=== PATIENT | female | born 1940 | race Caucasian/White ===

== ENCOUNTER → 2022-01-19 12:48 | Outpatient (BNVA) | payer MEDICARE, OTHER, SELFPAY | PROVIDERS: PCP Internal Medicine; Referring Provider Internal Medicine; Visit Provider Nurse Practitioner Family | DX: G20 Parkinson's disease (principal); G47.52 REM sleep behavior disorder; Z79.899 Other long term (current) drug therapy | CPT/HCPCS: 99212 ==

== ENCOUNTER → 2022-04-20 12:53 | Outpatient (BNVA) | payer MEDICARE, OTHER, SELFPAY | PROVIDERS: PCP Internal Medicine; Visit Provider Nurse Practitioner Family | DX: G20 Parkinson's disease (principal); G47.52 REM sleep behavior disorder | CPT/HCPCS: 99212 ==

== ENCOUNTER → 2022-08-03 11:20 | Outpatient (BNVA) | payer MEDICARE, OTHER, SELFPAY | PROVIDERS: PCP Internal Medicine; Visit Provider Nurse Practitioner Family | DX: G20 Parkinson's disease (principal); G47.52 REM sleep behavior disorder | CPT/HCPCS: 99212 ==

== ENCOUNTER 2022-08-16 16:02 | Emergency (ER) | payer MEDICARE, OTHER, SELFPAY ==
--- NOTE | ~2022-08-16 | XR_ITS ---
EXAMINATION: XR hand wrist LT CLINICAL INFORMATION: Reason for Exam fall COMPARISON: None. TECHNIQUE: 3 views of the left hand and wrist FINDINGS: Generalized osteopenia. Mildly medially and dorsally displaced extra articular fracture of the proximal to mid fifth metacarpal shaft. Well-corticated bone fragment adjacent to the ulnar styloid compatible with prior avulsion fracture. No other fracture or dislocation. Osteoarthritic changes at the triscaphe and first CMC joint with joint space narrowing, subchondral sclerosis and osteophyte formation. Mild degenerative changes at the IP joints and first MCP joint. XR/XR hand wrist LT IMPRESSION: 1. Mildly displaced extra-articular fracture of the distal fifth metacarpal. 2. No other acute fracture or dislocation.
[2022-08-16 17:15] VITALS: BP 128/96; PULSE 86; RESP 18; TEMP 36.7; O2SAT 99; BMI 20.5
--- NOTE | 2022-08-16 17:57 | ED_ITS ---
HPI - Extremity Problem General Chief complaint: Extremity Injury, Upper Stated complaint: fall/hand INJ Time Seen by Provider: 08/16/22 17:44 History of Present Illness HPI Narrative: Patient is an 82-year-old female presents today after an accidental fall. Patient baseline is on carbidopa levodopa for Parkinson. No history of being on thinners. Did not hit her head. The fall was completely mechanical. Patient is right handed. Fell on her left hand. Complaining of pain mostly over the hand. Related Data Home Medications Medication Instructions Recorded Confirmed cholecalciferol (vitamin D3) 50 50 mcg PO DAILY 01/19/22 08/03/22 mcg (2,000 unit) capsule fluticasone propionate 50 spray intranasal 01/19/22 08/03/22 mcg/actuation nasal spray,suspension levothyroxine 75 mcg tablet 75 mcg PO DAILY 01/19/22 08/03/22 zoledronic acid 5 mg/100 mL in IV .annual 01/19/22 08/03/22 mannitol 5 %-water intravenous piggybck Previous Rx's Medication Instructions Recorded carbidopa 25 mg-levodopa 100 mg See Rx Instructions PO TID 30 days 04/20/22 tablet #150 tabs selegiline HCl 5 mg tablet 5 mg PO BID 30 days #60 tabs 07/21/22 carbidopa ER 23.75 mg-levodopa 95 3 cap PO TID 30 days #270 caps 08/03/22 mg capsule,extended release (Rytary) oxycodone 5 mg tablet 5 mg PO Q8H PRN pain #7 tabs 08/16/22 Allergies Allergy/AdvReac Type Severity Reaction Status Date / Time No Known Allergies Allergy Verified 08/16/22 17:15 [No Known Allergies*] Review of Systems Review of Systems: No head injury. No nausea no vomiting no focal weakness Positive swelling to the hand Yes all other systems are reviewed and are negative PMFSH Past Medical History Attestation statement: The following information was validated with the patient. Medical History Hypothyroidism Surgical History History of total hip replacement Social History Social History Alcohol intake: current Alcohol intake frequency: 0-2 drinks per day Alcohol type: hard liquor Patient Tobacco Use Status: Current everyday Tobacco user Advance Directives: Yes Advance Directives Information Provided: No Advance Directives on File: No Physical Exam Vital Signs: Vital Signs: Last Vital Signs Temp 98.0 F 08/16/22 17:15 Pulse 86 08/16/22 17:15 Resp 18 08/16/22 17:15 BP 128/96 H 08/16/22 17:15 Pulse Ox 99 08/16/22 17:15 O2 Del Method 08/16/22 17:15 BMI result Body Mass Index 20.5 Appearance: Alert. Oriented X3. No acute distress. Eyes: Pupils equal, round and reactive to light. ENT: Pharynx normal. Neck: Normal inspection. Neck supple. No lymph nodes noted. No crepitus CVS: Normal heart rate and rhythm. Pulses normal. Normal S1 and S2 Respiratory: No respiratory distress. Breath sounds normal. No Wheezing. No rales Abdomen: Soft and nontender. No rigidity. No distention. good BS x4 Skin: Skin warm and dry. Normal skin color. Normal skin turgor. Extremities: Positive swelling to the left hand. Positive swelling to the left MCP joint of the long, ring, pinky. Minimal movement over the long, pinky finger secondary to pain. Distal pulses intact. Sensation intact. There is a ring over the ring finger. There is minimal tenderness on palpation of the 5th metacarpal bone. There is no anatomical snuffbox tenderness. There is good range of motion at the wrist. Skin intact capillary refill less than 2 seconds. Neuro: Oriented X 3. No motor deficit. No sensory deficit. Moving all e xtermities. No slurred speech MDM - Extremity (Nontraumatic) MDM Narrative Medical decision making narrative: X-ray of the left hand showed a boxer's fracture. The ring will be removed. Neurovascularly intact. Skin intact. There is no anatomical snuffbox tenderness. Placed in an ulnar gutter. Patient to follow-up with orthopedics on an outpatient basis. Discharge Plan Discharge Clinical Impression: Boxer's fracture Patient Disposition: Home, Self-Care Instructions: Splint Care (ED), Boxer Fracture (ED) Prescriptions: New oxycodone 5 mg tablet 5 mg PO Q8H PRN (Reason: pain) Qty: 7 0RF Rx Instructions: Partial Fill upon patient request. No Action selegiline HCl 5 mg tablet 5 mg PO BID 30 Days Qty: 60 3RF cholecalciferol (vitamin D3) 50 mcg (2,000 unit) capsule 50 mcg PO DAILY levothyroxine 75 mcg tablet 75 mcg PO DAILY zoledronic dhdf-wgmutdik-rysmb 5 mg/100 mL piggyback IV .annual fluticasone propionate 50 mcg/actuation spray,suspension intranasal carbidopa-levodopa 25-100 mg tablet See Rx Instructions PO TID 30 Days Qty: 150 6RF Rx Instructions: 2 tabs in am, 1.5 tab in afternoon, and 1.5 tabs in evening PO 3 times a day; Rytary 23.75-95 mg capsule, extended release 3 cap PO TID 30 Days Qty: 270 3RF Rx Instructions: divide evenly over waking hours Referrals: Ben Giraldo MD [Physician] -
== END 2022-08-16 19:57 | disposition home or self-care (01) ==
PROVIDERS: Emergency Provider Emergency Medicine Emergency Medical Services; PCP Internal Medicine
DX: S62.327A Displaced fracture of shaft of fifth metacarpal bone, left hand, initial encounter for closed fracture (principal); W01.0XXA Fall on same level from slipping, tripping and stumbling without subsequent striking against object, initial encounter; G20 Parkinson's disease; F17.200 Nicotine dependence, unspecified, uncomplicated; Z79.899 Other long term (current) drug therapy; Y93.9 Activity, unspecified; Y92.019 Unspecified place in single-family (private) house as the place of occurrence of the external cause; Y99.9 Unspecified external cause status
CPT/HCPCS: 29125; 73110; 73130; 99282; 99283

== ENCOUNTER 2022-08-19 10:54 | Emergency (ER) | payer MEDICARE, OTHER, SELFPAY ==
--- NOTE | ~2022-08-19 | XR_ITS ---
EXAMINATION: XR LUMBAR SPINE XR RIGHT HIP WITH PELVIS CLINICAL INFORMATION: History of fall with pain. COMPARISON: Radiographs of the pelvis from 04/02/2019 CXR from 01/01/2019 TECHNIQUE: Lumbar spine, 3 views Pelvis, AP view Right hip, 2 views FINDINGS: LUMBAR SPINE: There are 5 nonrib-bearing lumbar vertebra. There is dextroscoliosis of the lower thoracic and lumbar spine. Multiple lumbar vertebra exhibit mild concavity of their endplates, as may be observed in patients with chronic osteoporosis. There are no comparison imaging exams of the lumbar spine. The mild compression deformity of the L1 vertebral body appears to be new compared to the chest radiograph from 10/31/2019. There is degenerative disc space narrowing throughout the lumbar spine, and vacuum disc phenomenon is noted at L5-S1. At L4-L5, the facet osteoarthritis and mild disc degenerative change are associated with 0.3 cm of anterolisthesis of L4 on L5. 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 There is atherosclerotic calcification of the aorta and iliac arteries. PELVIS AND RIGHT HIP: The patient is rotated into a left anterior oblique position. The pelvic bones have an intact appearance. There is no diastases at the pubic symphysis or sacroiliac joints. The joint space of each hip is maintained. The proximal femurs are intact. The right femoral head is well-positioned within the acetabulum. Incidentally noted is a focus of soft tissue calcification projecting lateral to the proximal femoral diaphysis. There is an old healed fracture of the intertrochanteric left femur, status post placement of intramedullary nail and dynamic neck screw. No evidence of hardware loosening. XR/XR lumbar spine 2-3V IMPRESSION: * No femoral or acetabular fracture at the right hip. Alignment is normal. * There is mild concavity of vertebral endplates in the lumbar spine, as may be observed in patients with chronic osteoporosis. There are no comparison imaging exams of lumbar spine. The chronicity of the mild compression deformity of the L1 vertebral body is uncertain, but it does appear to be new compared to 01/01/2019. 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
--- NOTE | ~2022-08-19 | XR_ITS ---
EXAMINATION: XR HAND, LEFT CLINICAL INFORMATION: Known boxer's fracture. Fall. COMPARISON: 08/16/2022 TECHNIQUE: 3 views of the left hand. FINDINGS: Osteopenia. Redemonstration of the fifth metacarpal fracture. Similar alignment with dorsal displacement of the distal fragment. No evidence of healing since prior. Degenerative change of the first carpometacarpal joint with osteophyte formation. Joint space narrowing with flexed appearance at the third and fourth metacarpophalangeal joints, unchanged. XR/XR hand wrist LT IMPRESSION: No new fracture. Unchanged alignment of the fifth metacarpal shaft fracture.
--- NOTE | ~2022-08-19 | CT_ITS ---
CT HEAD WITHOUT IV CONTRAST CT CERVICAL SPINE WITHOUT IV CONTRAST INDICATION: Fall. Hit head. COMPARISON: Head CT 01/01/2019. TECHNIQUE: Multidetector CT acquisitions of the head and cervical spine were obtained without IV contrast. Multiplanar reformats were acquired and utilized for image interpretation. This CT examination was performed using dose optimization techniques as appropriate, variously including the following: *Automated exposure control *Adjustment of mA and/or kV according to patient size (this includes techniques or standardized protocols for targeted exams where dose is matched to indication/reason for exam; i.e. 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 There is no intracranial hemorrhage, hydrocephalus, extra-axial surface collection, midline shift, or other herniation pattern. Cho to white matter differentiation is diffusely maintained without evidence of an evolved acute territorial infarct. The basilar cisterns are preserved. No significant soft tissue abnormality. No acute osseous abnormality. The paranasal sinuses and the mastoid air cells are well aerated. Advanced degenerative changes involving the TMJs bilaterally. CERVICAL SPINE: No acute fractures and no acute subluxations. Cervical alignment is maintained. Vertebral body heights are preserved. There is severe disc volume loss at C3-C4 and moderate disc volume loss at C4-C5, C5-C6, and C6-C7. There are multilevel endplate osteophytes. Hypertrophic degenerative changes at the atlantodental interval. There is no prevertebral soft tissue swelling. Atherosclerotic calcification involving the carotid bifurcations bilaterally. Biapical pleural parenchymal scarring. CT/CT cervical spine wo IV con IMPRESSION: - No acute intracranial findings. 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 - No acute osseous findings within the cervical spine. Multilevel cervical spondylosis.
[2022-08-19 11:04] VITALS: BP 143/83; BP 145/60; PULSE 84; PULSE 85; RESP 16; TEMP 36.8; O2SAT 98; O2SAT 99; BMI 19.5
--- NOTE | 2022-08-19 11:48 | ED_ITS ---
HPI - Fall General Chief Complaint: Fall <CHE Silverman Last Filed: 08/19/22 20:32> Stated Complaint: Fall <CHE Silverman Last Filed: 08/19/22 20:32> Time Seen by Provider: 08/19/22 11:28 <CHE Silverman Last Filed: 08/19/22 20:32> Source: patient and EMS <CHE Silverman Last Filed: 08/19/22 20:32> Mode of arrival: EMS <CHE Silverman Last Filed: 08/19/22 20:32> History of Present Illness HPI Narrative: 82-year-old female with a past medical history of hypothyroid, Parkinson's, multiple falls, recent boxer's fracture seen in our ED on 08/16 s/p fall, presenting to the ED complaining of recurrent fall at home last night around 17:00. Patient states fell, landing hitting head with small laceration t o back of head, right-sided lower back pain, and continued left hand/wrist pain with splint falling apart. Denies LOC or taking anticoagulation. Denies symptoms prior to fall. Denies neck pain, headache, vision change/ loss, nausea/ vomiting, CP/ SOB, abdominal pain, numbness, tingling, weakness, incontinence or retention. Tetanus up-to-date <CHE Silverman - Last Filed: 08/19/22 20:32> MD complaint: fall <CHE Silverman Last Filed: 08/19/22 20:32> Onset (ago): hour(s) <CHE Silverman Last Filed: 08/19/22 20:32> Related Data Home Medications: Home Medications Medication Instructions Recorded Confirmed cholecalciferol (vitamin D3) 50 50 mcg PO DAILY 01/19/22 08/19/22 mcg (2,000 unit) capsule levothyroxine 75 mcg tablet 75 mcg PO DAILY 01/19/22 08/19/22 zoledronic acid 5 mg/100 mL in IV .annual 01/19/22 08/03/22 mannitol 5 %-water intravenous piggybck selegiline HCl 5 mg tablet 5 mg PO BID@0800,1500 08/19/22 08/19/22 Previous Rx's Medication Instructions Recorded carbidopa ER 23.75 mg-levodopa 95 3 cap PO TID 30 days #270 caps 08/03/22 mg capsule,extended release (Rytary) <CHE Silverman - Last Filed: 08/19/22 20:32> Allergies/Adverse Reactions: Allergies Allergy/AdvReac Type Severity Reaction Status Date / Time No Known Allergies Allergy Verified 08/16/22 17:15 [No Known Allergies*] <CHE Silverman Last Filed: 08/19/22 20:32> Review of Systems Review of Systems: Constitutional: No Fever, No Chills, No Fatigue, No Malaise ENT/Mouth: No Ear Pain, No Nasal Congestion, No sore throat, No Rhinorrhea, No Swallowing Difficulty Eyes: No Eye Pain, No Swelling, No Redness, No Discharge, No Vision Changes Cardiovascular: No Chest Pain, No SOB, No Edema, No Palpitations Respiratory: No Cough, No Sputum, No Dyspnea Gastrointestinal: No Nausea, No Vomiting, No Diarrhea, No Constipation, No Abdominal pain Genitourinary: No Dysuria, No Urinary Frequency, No Hematuria, No Urinary Incontinence/retention, No Flank Pain Musculoskeletal: + joint pain, No Myalgias, + Joint Swelling Skin: + Skin Lesions, No rash Neuro: No Weakness, No Numbness, No Paresthesias, No Loss of Consciousness, No Dizziness, + Head Injury <CHE Silverman Last Filed: 08/19/22 20:32> Yes all other systems are reviewed and are negative <CHE Silverman Last Filed: 08/19/22 20:32> Constitutional: Constitutional: Reports as per HPI <CHE Silverman Last Filed: 08/19/22 20:32> Neurologic: Denies Abnormal speech present <CHE Silverman Last Filed: 08/19/22 20:32> [facility] Past Medical History Attestation statement: The following information was validated with the patient. <CHE Silverman Last Filed: 08/19/22 20:32> Medical History: Medical History Hypothyroidism <CHE Silverman Last Filed: 08/19/22 20:32> Surgical History: Surgical History History of total hip replacement <CHE Silverman - Last Filed: 08/19/22 20:32> Social History Social History: Social History Alcohol intake: current Alcohol intake frequency: 0-2 drinks per day Alcohol type: hard liquor Patient Tobacco Use Status: Current everyday Tobacco user Advance Directives: Yes Advance Directives Information Provided: Yes Advance Directives on File: No <CHE Silverman - Last Filed: 08/19/22 20:32> Physical Exam Vital Signs: Vital Signs: Last Vital Signs Temp 98.6 F 08/20/22 07:31 Pulse 77 08/20/22 07:31 Resp 16 08/20/22 07:31 BP 148/68 H 08/20/22 07:31 Pulse Ox 97 08/20/22 07:31 O2 Del Method 08/20/22 07:31 BMI result Body Mass Index 19.5 <CHE Silverman - Last Filed: 08/19/22 20:32> Vital Signs: Last Vital Signs Temp 98.6 F 08/20/22 07:31 Pulse 77 08/20/22 07:31 Resp 16 08/20/22 07:31 BP 148/68 H 08/20/22 07:31 Pulse Ox 97 08/20/22 07:31 O2 Del Method 08/20/22 07:31 BMI result Body Mass Index 19.5 <CHE Schmidt - Last Filed: 08/20/22 10:06> Const: General: cooperative, healthy appearing, no acute distress, alert and awake <CHE Silverman - Last Filed: 08/19/22 20:32> Orientation/consciousness: patient oriented x3 <CHE Silverman - Last Filed: 08/19/22 20:32> Limitations: no limitations <CHE Silverman Last Filed: 08/19/22 20:32> HEENT: Other: + superficial 1cm laceration noted to posterior scalp, bleeding controlled <CHE Silverman Last Filed: 08/19/22 20:32> Head: Yes normal to inspection and No hematoma <CHE Silverman Last Filed: 08/19/22 20:32> Ears: hearing grossly normal bilaterally <CHE Silverman Last Filed: 08/19/22 20:32> General nose exam: Normal external nose present <CHE Silverman Last Filed: 08/19/22 20:32> Face and sinus: Yes normal facial exam <CHE Silverman Last Filed: 08/19/22 20:32> Mouth: Normal oral and palatal mucosa present <CHE Silverman Last Filed: 08/19/22 20:32> Throat: Yes posterior oropharynx normal, Yes tonsils normal and Yes uvula midline <CHE Silverman Last Filed: 08/19/22 20:32> Eyes: General: appearance normal, both eyes and all related structures <CHE Silverman Last Filed: 08/19/22 20:32> Pupils: Equal, round and reactive pupils present <CHE Silverman Last Filed: 08/19/22 20:32> EOM: EOMs intact bilaterally <CHE Silverman Last Filed: 08/19/22 20:32> Neck: Other: no midline cervical spinous tenderness <CHE Silverman Last Filed: 08/19 20:32> Neck: Yes normal visual inspection and Yes no meningeal signs <CHE Silverman Last Filed: 08/19/22 20:32> Chest: Chest palpation & inspection: normal inspection of the chest <CHE Silverman Last Filed: 08/19/22 20:32> Resp: Effort & Inspection: normal respiratory effort and no respiratory distress <CHE Silverman Last Filed: 08/19/22 20:32> Auscultation: clear to auscultation bilaterally <CHE Silverman Last Filed: 08/19/22 20:32> Cardio: Rate: regular rate <CHE Silverman Last Filed: 08/19/22 20:32> Heart sounds: S1 normal heart sound present and S2 normal heart sound present <Ileana Martin PA - Last Filed: 08/19/22 20:32> Peripheral pulses: Peripheral pulses 2+ throughout <Ileana Martin PA - Last Filed: 08/19/22 20:32> GI: Inspection: Yes normal to inspection <Ileana Martin PA - Last Filed: 08/19/22 20:32> Palpation (GI): Soft to palpation, nontender, no guarding and not rigid <Ileana Martin PA - Last Filed: 08/19/22 20:32> : General: Yes no CVA tenderness <Ileana Martin PA - Last Filed: 08/19/22 20:32> Back/Spine/Pelvis: Other: No midline thoracic/lumbar spinous tenderness/step-off or deformity. +R sided lower lumbar MSK tenderness to palpation <Ileana Martin PA - Last Filed: 08/19/22 20:32> Back: no CVA tenderness <Ileana Martin PA - Last Filed: 08/19/22 20:32> Thoracic/Lumbar Spine: thoracic and lumbar spine normal to inspection <Ileana Martin PA - Last Filed: 08/19/22 20:32> Pelvis: no pain with anterior-posterior compression, no pain with lateral compression and no buttock tenderness <Ileana Martin PA - Last Filed: 08/19/22 20:32> Skin: Rashes: no rashes <Ileana Martin PA - Last Filed: 08/19/22 20:32> Neuro: Other: Strength intact throughout. No saddle anesthesia. Sensation intact to light touch. Neurovascular intact distally <Ileana Martin PA - Last Filed: 08/19/22 20:32> General: patient oriented x3, gait normal, tone normal, moves all extremities, no meningeal signs, no focal motor deficits and CN's II-XI intact bilaterally <Ileana Martin PA - Last Filed: 08/19/22 20:32> Cranial nerves: Yes CN's II-XII intact bilaterally, Yes Equal, round and reactive pupils present and Yes Bilaterally intact EOM present <Ileana Martin PA - Last Filed: 08/19/22 20:32> Cognition (Neuro): normal cognition <CHE Silverman - Last Filed: 08/19/22 20:32> Speech: No Abnormal speech present <CHE Silverman Last Filed: 08/19/22 20:32> Gait exam (Neuro): Normal gait present <CHE Silverman Last Filed: 08/19/22 20:32> Motor exam (neuro): Tremors during motor activity present <CHE Silverman Last Filed: 08/19/22 20:32> Extrem: Other: +LUE with splint intact, falling apart, removed. +L hand swelling and ecchy mosis, diffusely ttp. decreased ROM 2/2 pain. NV intact hips nontender. Range of motion intact passively <CHE Silverman Last Filed: 08/19/22 20:32> Course Course Course Narrative: CT head/brain wo IV con/CT cervical spine wo IV con IMPRESSION: - No acute intracranial findings. 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 - No acute osseous findings within the cervical spine. Multilevel cervical spondylosis. XR lumbar spine 2-3V/XR hip RT w PEL1V IMPRESSION: *? No femoral or acetabular fracture at the right hip. Alignment is normal. *? There is mild concavity of vertebral endplates in the lumbar spine, as may be observed in patients with chronic osteoporosis. There are no comparison imaging exams of lumbar spine. The chronicity of the mild compression deformity of the L1 vertebral body is uncertain, but it does appear to be new compared to 01/01/2019. *? 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 > no point tenderness XR hand wrist LT IMPRESSION: No new fracture. Unchanged alignment of the fifth metacarpal shaft fracture.? >> will replace ulnar gutter splint -1442-- physician observation initiated as patient needs more time to be evaluated by Physical therapy/case management -1527-- patient was evaluated by Physical therapy recommended short-term rehab 2100--ED care transferred to [facility] pending PT/CM <CHE Silverman Last Filed: 08/19/22 20:32> CT head/brain wo IV con/CT cervical spine wo IV con IMPRESSION: - No acute intracranial findings. 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 - No acute osseous findings within the cervical spine. Multilevel cervical spondylosis. XR lumbar spine 2-3V/XR hip RT w PEL1V IMPRESSION: *? No femoral or acetabular fracture at the right hip. Alignment is normal. *? There is mild concavity of vertebral endplates in the lumbar spine, as may be observed in patients with chronic osteoporosis. There are no comparison imaging exams of lumbar spine. The chronicity of the mild compression deformity of the L1 vertebral body is uncertain, but it does appear to be new compared to 01/01/2019. *? 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 > no point tenderness XR hand wrist LT IMPRESSION: No new fracture. Unchanged alignment of the fifth metacarpal shaft fracture.? >> will replace ulnar gutter splint -1442-- physician observation initiated as patient needs more time to be evaluated by Physical therapy/case management -1527-- patient was evaluated by Physical therapy recommended short-term rehab 2100--ED care transferred to [facility] pending PT/CM 1005 on 08/20/2022: Physician observation continues. Patient to be discharged to [facility]. <CHE Schmidt - Last Filed: 08/20/22 10:06> Procedures Orthopedic Splinting/Casting Injury #1: Side: left <CHE Silverman - Last Filed: 08/19/22 20:32> Upper Extremity Immobilizer: ulnar gutter <CHE Silverman - Last Filed: 08/19/22 20:32> MDM - Fall MDM Narrative Medical decision making narrative: 82-year-old female with a past medical history of hypothyroid, Parkinson's, multiple falls, recent boxer's fracture seen in our ED on 08/16 s/p fall, presenting to the ED complaining of recurrent fall at home last night around 17:00. on exam vital signs stable, NAD, nontoxic appearing, no midline spinous tenderness throughout, small laceration noted to posterior scalp recommended one staple however patient refused. + Right lower back MSK tenderness noted. No focal neuro deficits. LUE splint removed. Concern for ICH vs concussion vs fracture vs MSK pain /strain. Low suspicion for cauda equina/cord compression. Lower suspicion for pelvic/hip fracture. Low concern for retroperitoneal bleed plan: Head/ C-spine CT, lumbar x-ray, hip/pelvis x-ray, repeat x-rays of left hand/ wrist, re-splint, PT/case management <CHE Silverman - Last Filed: 08/19/22 20:32> Medical Records Attestation: I reviewed the patient's medical records. <CHE Silverman Last Filed: 08/19/22 20:32> Lab Data Attestation: I reviewed the patient's lab results. <CHE Silverman Last Filed: 08/19/22 20:32> Labs: Lab Results 08/19/22 Range/Units 14:04 Influenza Type A (PCR) NEGATIVE (Negative) Influenza Type B (PCR) NEGATIVE (Negative) RSV RNA Qual (PCR) NEGATIVE (Negative) SARS-CoV-2 RNA (RT-PCR) NEGATIVE (Negative) <CHE Silverman Last Filed: 08/19/22 20:32> Lab Results 08/19/22 Range/Units 14:04 Influenza Type A (PCR) NEGATIVE (Negative) Influenza Type B (PCR) NEGATIVE (Negative) RSV RNA Qual (PCR) NEGATIVE (Negative) SARS-CoV-2 RNA (RT-PCR) NEGATIVE (Negative) <CHE Schmidt - Last Filed: 08/20/22 10:06> Discharge Plan Discharge Clinical Impression: Frequent falls, Compression deformity of vertebra, Boxer's fracture <CHE Silverman Last Filed: 08/19/22 20:32> Patient Disposition: Still a Patient <CHE Silverman Last Filed: 08/19/22 20:32> Prescriptions: No Action selegiline HCl 5 mg tablet 5 mg PO BID@0800,1500 cholecalciferol (vitamin D3) 50 mcg (2,000 unit) capsule 50 mcg PO DAILY levothyroxine 75 mcg tablet 75 mcg PO DAILY zoledronic ckdy-hkueondk-oylun 5 mg/100 mL piggyback IV .annual Rytary 23.75-95 mg capsule, extended release 3 cap PO TID 30 Days Qty: 270 3RF Rx Instructions: divide evenly over waking hours <CHE Silverman Last Filed: 08/19/22 20:32>
[2022-08-19] MEDS: Lidocaine 4 % Patch ADH..PATCH 1 PATCH TRANSDERMA (12:22)
[2022-08-19 14:00] VITALS: BP 149/77; PULSE 77; RESP 18; TEMP 36.6; O2SAT 99
[2022-08-19 14:50] LABS: Influenza A PCR NEGATIVE (Negative); Influenza B PCR NEGATIVE (Negative); Resp Syncy Virus RNA Qual PCR NEGATIVE (Negative); SARS COV2 PCR INHOUSE NEGATIVE (Negative)
--- NOTE | 2022-08-19 15:38 | MHC.CM.ED ---
Received case management consult from Ileana BOLTON. Patient fell at home. Physical therapy eval completed. Short term rehab is being recommended. Met with patient and , Jacobo in regards to discharge planning. Patient lives with Jacobo, ambulates with a walker and had no services prior to coming to the ER. PCP verified. Patient received 3 Moderna vaccines and 1 Pfizer vaccine. List of [facility] facilities provided to patient and [facility]. Facility choices: 1) [facility] 2) [facility]. Referrals made via [facility]. Continue to monitor for d/c needs.
--- NOTE | 2022-08-19 16:18 | MHC.CM.ED ---
Neither [facility] or [facility] able to offer a bed tonight. Both may be able to offer a bed tomorrow, 08/20. [facility] currently has a Covid outbreak. Family is not interested in bed at [facility] at this time. Waiting to hear about [facility] on 08/20. Referral also made to [facility] at patient and 's request. Patient and aware patient will be in the ER overnight. Continue to monitor for d/c needs.
[2022-08-19 20:09] VITALS: BP 142/70; PULSE 72; RESP 16; TEMP 36.3; O2SAT 98
--- NOTE | 2022-08-19 20:16 | PC.NURSE ---
ASSUMED CARE OF PATIENT AT THIS TIME ,PATIENT CHANGE INTO HOSPITAL ATTIRE BY THIS PCT ,PATIENT WAS INCONTINENT OF URINE JANETH CARE GIVEN ,PATIENT ATE 75 % OF DINNER DRANK 480 ML FLUIDS ,PATIENT IS RESTING COMFORTABLE IN BED .
--- NOTE | 2022-08-19 21:08 | PC.NURSE ---
Care delayed due to this RN being in another room with a critical pt.
[2022-08-19 21:59] VITALS: BP 134/84; PULSE 74; RESP 16; TEMP 36.6; O2SAT 97
--- NOTE | 2022-08-19 22:02 | PHA.MEDREC ---
MED REC COMPLETE, NO ISSUES Pharmacy Consult ? Medication Reconciliation Pharmacy has completed the medication reconciliation.
--- NOTE | 2022-08-19 22:25 | PC.NURSE ---
PATIENT WAS INC OF URINE ,JANETH CARE GIVEN ,BEDDING CHANGE .
--- NOTE | 2022-08-19 23:16 | PC.NURSE ---
Addendum entered by Lex Draper 08/19/22 23:25: [employer] IS AWARE OF TELE SITTER IN PATIENT ROOM BECAUSE PATIENT IS CLIMBING OUT OF BED . Original Note: tele sitter in place ,due to patient climbing out of bed .
--- NOTE | 2022-08-20 01:07 | PC.NURSE ---
Pt. asking this RN why she is at hospital and isn't home at this time. This RN to explain to pt. that she is awaiting CM/PT evaluations
--- NOTE | 2022-08-20 01:18 | PC.NURSE ---
Pt. expressing to this RN that she feels captive in this room and would like to go home. Requesting to speak with MD at this time.
[2022-08-20 01:42] VITALS: BP 151/86; PULSE 87; RESP 16; TEMP 37; O2SAT 98
--- NOTE | 2022-08-20 01:43 | PC.NURSE ---
PATIENT WAS UNDRESS AND CHANGE INTO HOSPITAL ATTIRE EARLIER TODAY ,BUT PATIENT TOOK HER JACKET AND PUT IT ON REFUSED TO HAVE IT REMOVE ,PATIENT WAS INC AT THIS TIME ALSO VOID IN THE BEDPAN ,JANETH CARE GIVEN ,GONZALO KELLER AWARE OF PATIENT WANTED TO KEEP HER JACKET ON .
--- NOTE | 2022-08-20 01:44 | PC.NURSE ---
This RN spoke with CHE Arnett. PA is under impression that pt.'s would like her to stay for PT marcos. CHE tells this RN that it is OK for pt. to go home so long as it is OK with . This RN called pt.'s Jacobo and had a conversation with him re: pt.'s desire to go home. Pt.'s would like pt. to stay until tomorrow morning and if pt. doesn't get evaluated by PT by the morning, he plans to take pt. home.
--- NOTE | 2022-08-20 02:45 | PC.NURSE ---
PATIENT IS ASLEEP AT THIS TIME .
[2022-08-20 06:29] VITALS: BP 142/76; PULSE 78; RESP 16; TEMP 36.6; O2SAT 94
[2022-08-20 07:31] VITALS: BP 148/68; PULSE 77; RESP 16; TEMP 37; O2SAT 97
--- NOTE | 2022-08-20 10:12 | MHC.CM.ED ---
[facility] not able to offer [facility] bed today. [facility] is. Patient and , Jacobo accept bed at [facility]. Patient can leave at 1pm. Lucretia MCKEON booked for 1pm. [facility] with chart. Patient, Kenia Centeno RN and Jenn BOLTON aware. Continue to monitor for d/c needs.
[2022-08-20 11:44] VITALS: BP 142/74; PULSE 81; RESP 16; O2SAT 99
[2022-08-20 13:49] VITALS: BP 138/74; PULSE 78; RESP 16; TEMP 36.7; O2SAT 99
--- NOTE | 2022-08-20 14:23 | PC.NURSE ---
rn to rn report given to roosevelt at [facility] ([phone])
== END 2022-08-20 14:25 | disposition home or self-care (01) ==
PROVIDERS: Physician Assistant; Emergency Provider Emergency Medicine; PCP Internal Medicine
DX: S62.327A Displaced fracture of shaft of fifth metacarpal bone, left hand, initial encounter for closed fracture (principal); S01.01XA Laceration without foreign body of scalp, initial encounter; W19.XXXA Unspecified fall, initial encounter; M51.06 Intervertebral disc disorders with myelopathy, lumbar region; R29.6 Repeated falls; Z91.81 History of falling; F17.200 Nicotine dependence, unspecified, uncomplicated; Z20.822 Contact with and (suspected) exposure to COVID-19; Y93.9 Activity, unspecified; Y92.019 Unspecified place in single-family (private) house as the place of occurrence of the external cause; Y99.9 Unspecified external cause status
CPT/HCPCS: 0241U; 29125; 70450; 72100; 72125; 73110; 73130; 73502; 97162; 99284; 99285

== ENCOUNTER 2022-08-25 09:18 | Outpatient (REF) | payer OTHER, MEDICARE, SELFPAY ==
--- NOTE | ~2022-08-25 | XR_ITS ---
EXAMINATION: XR HAND, LEFT CLINICAL INFORMATION: Fracture fifth metacarpal COMPARISON: Left hand 08/25/2022 and 08/19/2022. TECHNIQUE: Lateral view of the left hand. FINDINGS: Again visualized is a comminuted fracture proximal fifth metacarpal with mild dorsal displacement of distal fragment. There is an old ulnar styloid process fracture, stable. XR/XR hand LT 2V IMPRESSION: Comminuted displaced proximal fifth metacarpal fracture.
--- NOTE | ~2022-08-25 | XR_ITS ---
EXAMINATION: XR HAND, LEFT CLINICAL INFORMATION: Fracture COMPARISON: Previous x-ray 08/19/2022 TECHNIQUE: PA, lateral, and oblique views of the left hand. FINDINGS: There is a comminuted displaced fracture of the proximal shaft of the fifth metacarpal bone. Displacement appears increased compared to August 19 exam. There is evidence of an old ulnar styloid fracture. No other acute fracture is seen. There is question of widening of the scapholunate distance. This is not appreciated on exams from earlier this month and may be projectional. There is arthritis at the first FPC and MCP joints. Soft tissues are unremarkable. XR/XR hand LT min 3V IMPRESSION: Increasing displacement of the comminuted fracture of the proximal shaft of the fifth metacarpal bone.
== END 2022-08-25 09:19 | disposition home or self-care (01) ==
LOC: HO.HOSX 09:18
PROVIDERS: Visit Provider Physician Assistant
DX: S62.607A Fracture of unspecified phalanx of left little finger, initial encounter for closed fracture (principal); G20 Parkinson's disease; W19.XXXA Unspecified fall, initial encounter; Y93.9 Activity, unspecified; Y92.9 Unspecified place or not applicable; Y99.9 Unspecified external cause status; Z79.899 Other long term (current) drug therapy
CPT/HCPCS: 73120; 73130; 99202

== ENCOUNTER 2022-08-30 08:42 | Day surgery (SDC) | payer OTHER, MEDICARE, SELFPAY ==
--- NOTE | 2022-08-27 10:22 | HO.ANESPROP2 ---
Documented by User: Rhianna Leon NP 08/27/22 10:23 HPI - Anesthesia Eval Consult details Narrative: 82yo F for Left CRPP vs ORIF 5th Metacarpal,Closed vs open reduction Middle and ring finger metacarpal [facility] resident [facility] Active Problems Active Problems: All Active Problems (Updated 08/25/22 @ 10:08 by Art Ruelas) Fracture of fifth metacarpal bone of left hand (Acute) Finger fracture, left (Acute) REM sleep behavior disorder (Acute) Parkinson's disease (Acute) Past Medical History Medical History (Updated 08/27/22 @ 10:23 by Rhianna Leon NP) Hypothyroidism Parkinson's disease Surgical History Surgical History History of total hip replacement Social History Social History (Updated 08/25/22 @ 08:47 by CHICHI Rivera) Alcohol intake: never Patient Tobacco Use Status: Current someday Tobacco user Tobacco use type: Cigarette Cigarettes Per Day: 4 Years Smoked: 35 Smoked in Last 30 Days: Yes Use of substances other than those prescribed or required for medical reasons: No Are you DNR?: No Advance Directives: No Advance Directives Information Provided: Yes Current occupational status: retired and disabled 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 Allergies Allergy/AdvReac Type Severity Reaction Status Date / Time No Known Allergies Allergy Verified 08/25/22 08:47 [No Known Allergies*] Home Medications Medication Instructions Recorded Confirmed Last Taken Type cholecalciferol (vitamin D3) 50 50 mcg PO DAILY 01/19/22 08/30/22 Unknown History mcg (2,000 unit) capsule levothyroxine 75 mcg tablet 75 mcg PO DAILY 01/19/22 08/30/22 08/30/22 06:30 History zoledronic acid 5 mg/100 mL in IV .annual 01/19/22 08/03/22 Unknown History mannitol 5 %-water intravenous piggybck selegiline HCl 5 mg tablet 5 mg PO BID@0800,1500 08/19/22 08/30/22 08/30/22 06:30 History Exam Exam Date and Time: August 27, 2022 1022 Assessment and Plan Assessment Anesthesia Assessment: Chart Reviewed Documented by User: Juventino Pool MD 08/30/22 15:49 [facility] Past Medical History Medical History (Updated 08/27/22 @ 10:23 by Rhianna Leon NP) Hypothyroidism Parkinson's disease Family History Family history of problems with anesthesia: No Surgical History Surgical History History of total hip replacement History of Problems with Anesthesia: No Social History Social History (Updated 08/25/22 @ 08:47 by CHICHI Rivera) Alcohol intake: never Patient Tobacco Use Status: Current someday Tobacco user Tobacco use type: Cigarette Cigarettes Per Day: 4 Years Smoked: 35 Smoked in Last 30 Days: Yes Use of substances other than those prescribed or required for medical reasons: No Are you DNR?: No Advance Directives: No Advance Directives Information Provided: Yes Current occupational status: retired and disabled 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 Allergies Allergy/AdvReac Type Severity Reaction Status Date / Time No Known Allergies Allergy Verified 08/25/22 08:47 [No Known Allergies*] Home Medications Medication Instructions Recorded Confirmed Last Taken Type cholecalciferol (vitamin D3) 50 50 mcg PO DAILY 01/19/22 08/30/22 Unknown History mcg (2,000 unit) capsule levothyroxine 75 mcg tablet 75 mcg PO DAILY 01/19/22 08/30/22 08/30/22 06:30 History zoledronic acid 5 mg/100 mL in IV .annual 01/19/22 08/03/22 Unknown History mannitol 5 %-water intravenous piggybck selegiline HCl 5 mg tablet 5 mg PO BID@0800,1500 08/19/22 08/30/22 08/30/22 06:30 History Exam Airway Mallampati Class: III Neck ROM: Limited Denture: Upper and Lower Loose/Missing/Broken Teeth: Yes Heart: S1,S2 Lungs: b/l breath sounds Assessment and Plan Assessment Anesthesia Assessment: Anesthesia Plan Discussed Final Anesthetic Review Family History of Problems with Anesthesia: No History of Problems with Anesthesia: No NPO: Yes ASA Class: III Final Preanesthetic Review: Meds/Allgs Chart Reviewed, Consent Obtained/Reviewed and Anes Risks/Benef Reviewed Patient Risk: Intermediate Procedure Risk: Intermediate Anesthetic Plan Anesthetic Plan: GA Disposition: Standard PACU
[2022-08-30] VITALS (8 sets, daily range): BP systolic 117–141; BP diastolic 62–71; PULSE 69–80; RESP 14–18; TEMP 36.2; O2SAT 95–98; BMI 20.5
--- NOTE | ~2022-08-30 | FL_ITS ---
EXAMINATION: XR FLUOROSCOPY WITH IMAGES CLINICAL INFORMATION: Fracture proximal shaft left fifth metacarpal COMPARISON: Left hand radiographs 08/25/2022 TECHNIQUE: Fluoroscopy performed by Dr. Farheen Dodge. Fluoroscopy time: 17 seconds. Cumulative Dose: 0.4251 mGy. DAP: 0.0257 Gycm2. Images: 5. FINDINGS: Fracture left fifth metacarpal is reduced with metallic orthopedic pin. There is improved alignment. No dislocation. Hardware intact. FL/FL guidance in OR IMPRESSION: Status post open reduction internal fixation left fifth metacarpal fracture.
--- NOTE | 2022-08-30 09:18 | W.PM.OPN ---
Operative Note Operative Note Date of Service: 08/30/22 Narrative: Operative Note Narrative: Preop diagnosis: 1. Left 5th metacarpal shaft fracture with comminution 2. Left 3rd MCP joint volar subluxation/dislocation, posttraumatic 3. Left 4th MCP joint volar subluxation/ dislocation, posttraumatic Postop diagnosis: Same Procedure: 1. Left 5th metacarpal shaft fracture closed reduction percutaneous pinning 2. Left 3rd MCP joint open reduction and release of volar plate 3. Left 4th MCP joint open reduction and release of volar plate 4. Left 4th MCP joint removal of bony fragment Surgeon: Farheen Dodge MD Anesthesia: General Anesthesia Findings: after releasing the volar plate and performing an arthrotomy of both the 3rd and 4th MCP joints, I was then able to bring these joints into full extension and even hyper extension. A Small bony fragment was also excised and removed from the radial aspect of the 4th MCP joint. There is evidence of cartilage loss from the 3rd metacarpal head that may be degenerative versus posttraumatic. It is in the central and slightly volar aspect of the 3rd metacarpal head. No prominent osteophytes were observed about either the 3rd or 4th metacarpal heads. There was also some laxity indicating damage to the radial collateral ligaments of both the 3rd and the 4th MCP joints. Implants: 0.062 K-wires times One Tourniquet time: 80 minutes EBL: 5.0 ml Specimen: none Drains: None Complications: None Disposition: Brought to the recovery room in stable condition Plan: Follow-up in 10-14 days for wound check, suture removal and pre clinic radiographs and placement in a short-arm cast that will allow for range of motion of the index middle and ring fingers. encourage range of motion of the Index middle and ring finger MCP joints. anticipate K-wire removal in 4-5 weeks, pending evidence of bony healing Luis taping of the index finger to the middle finger may be helpful as the radial collateral ligament heals Indications: The patient is a 82 year old woman with Parkinson's disease and a left comminuted 5th metacarpal shaft fracture, and 3rd and 4th MCP joint volar subluxation/ dislocations status post a fall. . The risks and benefits of operative treatment, including but not limited to risk of damage to blood vessels, nerves, tendons, infection, recurrence, persistent pain or numbness, incomplete resolution of preoperative symptoms, or need for further surgery were discussed with the patient and they wished to proceed with surgery. Procedure: Once consent was obtained patient was brought back to the operating suite and placed in the operating table in a supine position. . Perioperative antibiotics and anesthesia was administered by the anesthesia team. A tourniquet was applied to the proximal aspect of the Left upper extremity and the limb was prepped and draped in a standard surgical fashion. The limb was elevated exsanguinated with Esmarch bandage and the tourniquet inflated to 250 mm of mercury for a total tourniquet time of 80 minutes. Our attention was 1st turned to the 3rd and 4th MCP joints. As noted when she was seen in clinic the joints are ulnarly deviated, and held in some flexion. Both the middle and ring fingers appear on exam today to have injuries or laxity of the radial collateral ligaments at the MCP joint that likely occurred during this injury. We were not able to passively extend the MCP joints of the middle or ring fingers to further than about 10 degrees of flexion. Both the index and ring fingers were able to be brought to a good 10-15 degrees of hyper extension.. A Subhash site incision was 1st made over the volar aspect of the left 3rd MCP joint. Incision was made through the skin to the subcutaneous tissues using a 15. Blade. We carefully dissected down to the level of the A1 cookie using tenotomy scissors with care being taken to protect the neurovascular bundles. The A1 cookie was incised longitudinally using a 15. Blade and tenotomy scissors. We were then retracted the 2 flexor tendons, exposing the volar plate. The volar plate was then incised along its radial edge using a 15. Blade and tenotomy scissors. This then revealed to was the metacarpal phalangeal joint. a loss of articular cartilage on the volar central aspect of the 3rd metacarpal head. It was unclear whether this could be degenerative verses traumatic, though I would say it is most likely traumatic. No loose bodies were identified. No significant osteophytes were identified. Again on exam it appears that she sustained an injury to the radial collateral ligament at the MCP joint with some laxity. The ulnar collateral ligament appears to be intact. At this point I was able to bring the middle finger MCP joint to about 15 degrees of hyper extension and back into flexion. I also made an approximately 2 cm dorsal longitudinal incision over the 3rd MCP joint. I was concerned about the extensor mechanism and whether this may be contributing to the ulnar deviation of the middle finger. The extensor mechanism was found to sublux slightly ulnarly, but remained over the dorsal aspect of the MCP joint. It did not fully slip into the groove between the 3rd and 4th metacarpal heads. I felt this was not likely a contributing factor. ?A Subhash site incision was 1st made over the volar aspect of the left Fourth MCP joint.? Incision was made through the skin to the subcutaneous tissues using a 15. Blade.? We carefully dissected down to the level of the A1 cookie using tenotomy scissors with care being taken to protect the neurovascular bundles.? The A1 cookie was incised longitudinally using a 15. Blade and tenotomy scissors.? We were then able to retract the? 2 flexor tendons, exposing the volar plate. The volar plate was then incised along its radial edge using a 15. Blade and tenotomy scissors. This then revealed to us the metacarpal phalangeal joint. I did not appreciate any loss of articular cartilage on the 4th metacarpal head. I also did not appreciate any significant osteophytes. Similar to the 3rd MCP joint we found laxity of the radial collateral ligament with an intact ulnar collateral ligament at the MCP joint. I also found a small bony fragment attached to a somewhat loose piece of capsule along the radial side of the joint. This was carefully excised and removed from the patient. The joint was then copiously irrigated. I was then able to bring the ring finger MCP joint to about 15 degrees of hyper extension and back into flexion. These wounds were copiously irrigated with normal saline. The tourniquet was deflated at a total tourniquet time of 80 minutes and hemostasis was obtained with a brief period of local pressure. The skin edges were then reapproximated with some 5 0 nylon suture material. The wounds were infiltrated with some 0.5% plain ropivacaine for postop pain control. Our attention was then turned to the left 5th metacarpal shaft fracture. The FluoroScan was used during the case to assist with our fracture reduction and placement of all implants.? A closed reduction was performed on the patient's Left 5th metacarpal shaft fracture.? ?I placed a single 0.062 K-wire retrograde through the head of the 5th metacarpal extending proximally across the fracture site to the base of the? metacarpal.? ? Fracture alignment was assessed for both angular and rotational malalignment.? I did not feel a 2nd K-wire was necessary.? Once satisfied with our fracture reduction and implant placement, the K-wire was bent and cut short and pin cap applied.? Final fluoroscopic images were then obtained. and ulnar nerve block was performed by infiltrating about the ulnar nerve at the wrist with some 0.5% plain ropivacaine for postop pain control. A sterile dressing And an ulnar gutter splint was applied. The patient appears to have tolerated the procedure well and with no complications. All digits were well vascularized conclusion of the case.
[2022-08-30] MEDS: Lactated Ringers 1,000 ML 100 ML IVCONT (10:12)
== END 2022-08-30 15:00 | disposition home or self-care (01) ==
PROVIDERS: PCP Internal Medicine; Visit Provider Orthopaedic Surgery
PROC: (CPT 26615; principal; 2022-08-30 10:50)
DX: S62.327A Displaced fracture of shaft of fifth metacarpal bone, left hand, initial encounter for closed fracture (principal); S63.215A Subluxation of metacarpophalangeal joint of left ring finger, initial encounter; S63.213A Subluxation of metacarpophalangeal joint of left middle finger, initial encounter; M24.242 Disorder of ligament, left hand; W01.0XXA Fall on same level from slipping, tripping and stumbling without subsequent striking against object, initial encounter; Y93.9 Activity, unspecified; Y92.9 Unspecified place or not applicable; Y99.8 Other external cause status; Z91.81 History of falling; G20 Parkinson's disease; E03.9 Hypothyroidism, unspecified; Z79.899 Other long term (current) drug therapy; F17.210 Nicotine dependence, cigarettes, uncomplicated; Z96.649 Presence of unspecified artificial hip joint
CPT/HCPCS: 26608; 26715 ×2; 26075; J0690; J2370; J2795; J3010

== ENCOUNTER 2022-09-13 17:29 | Outpatient (REF) | payer MEDICARE, OTHER, SELFPAY ==
--- NOTE | ~2022-09-13 | XR_ITS ---
EXAMINATION: XR HAND, LEFT CLINICAL INFORMATION: Pain left hand. COMPARISON: None TECHNIQUE: PA, lateral, and oblique views of the left hand. FINDINGS: There is solitary pin traversing the fifth MCP joint for fusion. Again visualized is a displaced fracture base of left fifth metacarpal unchanged to 08/25/2022 XR/XR hand LT min 3V IMPRESSION: 1. Fusion of the fifth MCP joint with solitary pin. 2. Displaced fracture base of left fifth metacarpal unchanged to 08/25/2022.
== END 2022-09-13 17:30 | disposition home or self-care (01) ==
LOC: HO.HOSX 17:29
PROVIDERS: Visit Provider Orthopaedic Surgery
DX: M79.642 Pain in left hand (principal)
CPT/HCPCS: 73130

== ENCOUNTER → 2022-09-14 12:32 | Outpatient (BNVA) | payer MEDICARE, OTHER, SELFPAY | PROVIDERS: PCP Internal Medicine; Visit Provider Orthopaedic Surgery | DX: S62.609D Fracture of unspecified phalanx of unspecified finger, subsequent encounter for fracture with routine healing (principal); S62.307D Unspecified fracture of fifth metacarpal bone, left hand, subsequent encounter for fracture with routine healing; S63.413 Traumatic rupture of collateral ligament of left middle finger at metacarpophalangeal and interphalangeal joint | CPT/HCPCS: 73130; 99212 ==

== ENCOUNTER → 2022-09-21 09:00 | Outpatient (BNVA) | payer MEDICARE, OTHER, SELFPAY | PROVIDERS: PCP Internal Medicine; Visit Provider Nurse Practitioner Family | DX: G20 Parkinson's disease (principal); G47.52 REM sleep behavior disorder; W18.30XD Fall on same level, unspecified, subsequent encounter | CPT/HCPCS: 99212 ==

== ENCOUNTER 2022-10-18 14:01 | Outpatient (REF) | payer MEDICARE, OTHER, SELFPAY ==
--- NOTE | ~2022-10-18 | XR_ITS ---
EXAMINATION: XR HAND, LEFT CLINICAL INFORMATION: Pain COMPARISON: Left hand x-rays September 14, 2022 TECHNIQUE: PA, lateral, and oblique views of the left hand. FINDINGS: Interval removal of the fifth metacarpal pain. There has been mild interval callus formation of the known fifth metacarpal fracture which demonstrates near anatomical alignment. There are mild diffuse degenerative changes of the left wrist and hand, particularly involving the first carpal metacarpal joint. Soft tissue swelling again noted particularly overlying the fifth metacarpal. XR/XR hand LT min 3V IMPRESSION: Mild interval callus formation of known fifth metacarpal fracture.
== END 2022-10-18 14:02 | disposition home or self-care (01) ==
LOC: HO.HOSX 14:01
PROVIDERS: Visit Provider Orthopaedic Surgery
DX: M79.642 Pain in left hand (principal)
CPT/HCPCS: 73130

== ENCOUNTER → 2022-10-19 09:28 | Outpatient (BNVA) | payer MEDICARE, OTHER, SELFPAY | PROVIDERS: PCP Internal Medicine; Visit Provider Orthopaedic Surgery | DX: S62.307D Unspecified fracture of fifth metacarpal bone, left hand, subsequent encounter for fracture with routine healing (principal); S63.413 Traumatic rupture of collateral ligament of left middle finger at metacarpophalangeal and interphalangeal joint | CPT/HCPCS: 73130; 99212 ==

== ENCOUNTER → 2022-10-22 10:20 | Outpatient (BNVA) | payer MEDICARE, OTHER, SELFPAY | PROVIDERS: PCP Internal Medicine; Visit Provider Physician Assistant | DX: S62.609D Fracture of unspecified phalanx of unspecified finger, subsequent encounter for fracture with routine healing (principal); S62.307D Unspecified fracture of fifth metacarpal bone, left hand, subsequent encounter for fracture with routine healing; S63.413 Traumatic rupture of collateral ligament of left middle finger at metacarpophalangeal and interphalangeal joint | CPT/HCPCS: 99212 ==

== ENCOUNTER → 2022-12-07 09:29 | Outpatient (BNVA) | payer MEDICARE, OTHER, SELFPAY | PROVIDERS: PCP Family Medicine; Visit Provider Nurse Practitioner Family | DX: G20 Parkinson's disease (principal); S62.307A Unspecified fracture of fifth metacarpal bone, left hand, initial encounter for closed fracture | CPT/HCPCS: 99212 ==

== ENCOUNTER → 2023-04-05 08:53 | Outpatient (BNVA) | payer MEDICARE, OTHER, SELFPAY | PROVIDERS: PCP Family Medicine; Visit Provider Nurse Practitioner Family | DX: G20 Parkinson's disease (principal); Z91.81 History of falling | CPT/HCPCS: 99212 ==

== ENCOUNTER 2023-05-26 20:01 | Inpatient (IN) | payer MEDICARE, OTHER, SELFPAY ==
--- NOTE | ~2023-05-26 | XR_ITS ---
Examination: Chest. Right hip and AP pelvis. Clinical indications: Right hip pain and chest pain. COMPARISON: Right hip 08/19/2022. TECHNIQUE: Chest one view. AP pelvis and right hip 3 views. Findings: CHEST: The lungs are well-expanded and clear of acute process. The heart size and pulmonary vascularity is normal. No gross bony abnormality seen. AP pelvis and right hip: There is intertrochanteric fracture right femur with no dislocation. There is diffuse osteopenia. The soft tissues are normal. There is intramedullary femoral lilian left femur with a nail for an old healed fracture. There is no fracture involving the pelvic bones. There is popcorn calcification in the pelvis likely related to uterine fibroid. SI joints are symmetrical. XR/XR hip RT w PEL1V IMPRESSION: 1. Intertrochanteric fracture right femur with no dislocation. There is diffuse osteopenia. 2. There is intramedullary femoral lilian and nail for an old healed fracture left femur. 3. The lungs are well-expanded and clear of acute process.
--- NOTE | ~2023-05-26 | XR_ITS ---
Examination: Chest. Right hip and AP pelvis. Clinical indications: Right hip pain and chest pain. COMPARISON: Right hip 08/19/2022. TECHNIQUE: Chest one view. AP pelvis and right hip 3 views. Findings: CHEST: The lungs are well-expanded and clear of acute process. The heart size and pulmonary vascularity is normal. No gross bony abnormality seen. AP pelvis and right hip: There is intertrochanteric fracture right femur with no dislocation. There is diffuse osteopenia. The soft tissues are normal. There is intramedullary femoral lilian left femur with a nail for an old healed fracture. There is no fracture involving the pelvic bones. There is popcorn calcification in the pelvis likely related to uterine fibroid. SI joints are symmetrical. XR/XR chest 1V IMPRESSION: 1. Intertrochanteric fracture right femur with no dislocation. There is diffuse osteopenia. 2. There is intramedullary femoral lilian and nail for an old healed fracture left femur. 3. The lungs are well-expanded and clear of acute process.
--- NOTE | ~2023-05-26 | FL_ITS ---
EXAMINATION: XR FLUOROSCOPY WITH IMAGES CLINICAL INFORMATION: Right hip fracture COMPARISON: Previous x-ray 05/26/2023 TECHNIQUE: Fluoroscopy Supervised By: Dr. Ben Giraldo. Fluoroscopy Time: 0.5 minutes. Cumulative Dose: 10.6 mGy. DAP: 0.2 Gycm2. Images: 5. FINDINGS: Images demonstrate intramedullary lilian in the proximal and mid femoral shaft and proximal compression/lag screw transfixing the right femoral intertrochanteric fracture. There is improved alignment. FL/FL guidance in OR IMPRESSION: Fluoroscopy guidance for ORIF of right femoral intertrochanteric fracture.
[2023-05-26 20:07] VITALS: BP 97/50; PULSE 93; RESP 16; TEMP 36.6; O2SAT 92
--- NOTE | 2023-05-26 20:15 | ED_ITS ---
HPI - Fall General Chief Complaint: Fall Stated Complaint: Fall, right hip pain Time Seen by Provider: 05/26/23 20:11 Source: patient Mode of arrival: ambulatory Limitations: no limitations History of Present Illness HPI Narrative: This is 82 years old female with history of Parkinson disease presented to emergency room after a fall she was in the kitchen the leg gave out, she is complaining of right hip pain complaint: fall Onset (ago): hour(s) (1) Fall from: standing Fall witnessed: yes, by family Place fall occurred: home Loss of consciousness: none Associated symptoms (after fall): denies Related Data Home Medications Medication Instructions Recorded Confirmed cholecalciferol (vitamin D3) 50 50 mcg PO DAILY 01/19/22 04/05/23 mcg (2,000 unit) capsule levothyroxine 75 mcg tablet 75 mcg PO DAILY 01/19/22 04/05/23 fluticasone propionate 50 1 spray intranasal DAILY 04/05/23 04/05/23 mcg/actuation nasal spray,suspension (Allergy Relief (fluticasone)) mecobalamin (vitamin B12) 1,000 1,000 mcg PO DAILY 04/05/23 04/05/23 mcg chewable tablet melatonin 5 mg capsule mg PO PRN 04/05/23 04/05/23 zoledronic acid 5 mg/100 mL in IV 04/05/23 04/05/23 mannitol 5 %-water intravenous piggybck (Reclast) Previous Rx's Medication Instructions Recorded selegiline HCl 5 mg tablet 5 mg PO BID 30 days #60 tabs 01/27/23 carbidopa ER 23.75 mg-levodopa 95 See Rx Instructions PO TID 30 days 04/05/23 mg capsule,extended release #300 caps (Rytary) Allergies Allergy/AdvReac Type Severity Reaction Status Date / Time alendronate sodium AdvReac Unknown Unknown Verified 04/05/23 09:11 [From [employer]] Review of Systems 2 Constitutional: Constitutional: Reports no additional constitutional complaints ENT: Reports system reviewed and no additional complaints, except as documented Cardiovascular: Cardiovascular: Reports no additional cardiovascular complaints [facility] Past Medical History Attestation statement: The following information was validated with the patient. [facility] Narrative: Parkinson Disease Medical History Hypothyroidism Parkinson's disease Surgical History History of hand surgery History of total hip replacement Social History Social History Alcohol intake: current Alcohol intake frequency: holidays/special occasions only Alcohol type: hard liquor Patient Tobacco Use Status: Current someday Tobacco user Tobacco use type: Cigarette Cigarettes Per Day: 4 Years Smoked: 35 Smoked in Last 30 Days: Yes Use of substances other than those prescribed or required for medical reasons: No Advance Directives: No Advance Directives Information Provided: Yes Current occupational status: retired and disabled 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 Physical Exam Vital Signs: Vital Signs: Last Vital Signs Temp 97.5 F 05/26/23 20:36 Pulse 64 05/26/23 20:36 Resp 16 05/26/23 20:36 BP 97/64 05/26/23 20:36 Pulse Ox 96 05/26/23 20:36 O2 Del Method Room Air 05/26/23 20:36 BMI result Body Mass Index 20.5 Const: General: cooperative Nutritional Appearance: well nourished Orientation/consciousness: patient oriented x3 Limitations: no limitations HEENT: Head: Yes normal to inspection General nose exam: Normal external nose present Face and sinus: Yes normal facial exam Mouth: Normal oral and palatal mucosa present Throat: Yes posterior oropharynx normal Neck: Neck: Yes normal visual inspection and Yes full ROM Thyroid: Thyroid normal Chest: Chest palpation & inspection: normal inspection of the chest Resp: Effort & Inspection: normal respiratory effort Auscultation: clear to auscultation bilaterally Cardio: Jugular venous distension: no JVD Rate: regular rate Rhythm: regular rhythm GI: Inspection: Yes normal to inspection Palpation (GI): Soft to palpation Skin: General skin exam: no rashes or lesions noted and elasticity normal Lesions: no lesions Rashes: no rashes Neuro: General: patient oriented x3 Extrem: Other: Tenderness in the right hip decreased range of motion Course Reevaluation(s) Reevaluation #1: X-ray showed a fracture hip will call Ortho Time: 21:07 Medications Administered Discontinued Medications Generic Name Dose Route Start Last Admin Trade Name Freq PRN Reason Stop Dose Admin Morphine Sulfate 2 mg 05/26/23 20:18 07/13/23 20:30 Morphine Sulfate 2 Mg/Ml Cartridge IVPUSH 05/26/23 20:19 2 mg ONCE ONE Administration Protocol Ondansetron HCl 4 mg 05/26/23 20:18 05/26/23 20:30 Ondansetron Hcl 4 Mg/2 Ml Vial IVPUSH 05/26/23 20:19 4 mg ONCE ONE Administration Medical Decision Making Medical Decision Making [facility] Narrative: Patient presents to the emergency department after a fall x-ray showed hip fracture, will consult ortho. Differential Diagnosis Differential Diagnoses: The differential diagnosis associated with the presentation includes Hip fracture/ dislocated hip /pelvic from Admission/Observation Consideration of admission/observation: Escalation of care including admission/observation considered Consult Healthcare Provider Management of the patient was discussed with: Silverware Cleaner spoke with Ortho Lab Data [facility] Lab Attestation statement: I reviewed the patient's lab results. 05/26/23 20:29 05/26/23 20:29 Labs: Lab Results 05/26/23 05/26/23 Range/Units 20:29 20:29 WBC 5.4 (4.8-10.8) X10*3/uL RBC 3.75 L (4.20-5.50) X10*6/uL Hgb 11.9 L (12.0-16.0) g/dl Hct 35.4 L (37.0-47.0) % MCV 94.4 (80.0-98.0) fL MCH 31.7 (27.0-33.0) pg MCHC 33.6 (31.0-35.0) g/dl RDW 13.3 (11.0-16.0) % Plt Count 173 (160-400) X10*3/uL MPV 11.1 (9.4-12.3) fL Immature Gran % (Auto) 0.4 (0.0-0.4) % Neut % (Auto) 60.4 (45-73) % Lymph % (Auto) 25.4 (20-40) % Hand % (Auto) 9.5 (2-11) % Eos % (Auto) 3.7 (0-4) % Baso % (Auto) 0.6 (0-2) % Lymph # (Auto) 1.4 (1.2-4.9) X10*3/uL Hand # (Auto) 0.5 (0.1-1.2) X10*3/uL Eos # (Auto) 0.2 (0.0-0.4) X10*3/uL Baso # (Auto) 0.0 (0.0-0.2) X10*3/uL Abs Immat Gran (auto) 0.02 (0.00-0.03) X10*3/uL Absolute Neuts (auto) 3.3 (2.0-8.3) x10*3/uL Absolute Nucleated RBC 0.000 (0.0-0.012) X10*3/uL Nucleated RBC % (auto) 0.0 (0.0-0.2) /100WBC Sodium 142 (135-145) mmol/L Potassium 4.6 (3.3-5.1) mmol/L Chloride 111 H (96-108) mmol/L Carbon Dioxide 22 (22-29) mmol/L Anion Gap 14 (12-20) BUN 19 H (9-16) mg/dL Creatinine 0.89 (0.5-1.4) mg/dL Estim Creat Clear Calc 40.3 Estimated GFR > 60 Random Glucose 139 H (60-115) mg/dL Calcium 9.5 (8.4-10.2) mg/dL Total Bilirubin 0.5 (0.0-1.0) mg/dL AST 17 (5-31) U/L ALT < 5 (0-31) U/L Alkaline Phosphatase 63 (39-117) U/L Total Protein 6.5 (6.5-8.0) g/dL Albumin 4.1 (3.5-5.0) g/dL Independent Interpretation I performed an independent interpretation of an: Plain X-Ray Interpretation: I review and interpreted the x-ray myself and interpreted Radiology Impression Discussion of test interpretation with radiology: I have reviewed the radiologist's reading. Independent Historian Clinical information obtained from an independent historian. History obtained from or confirmed by: Other () Chronic Conditions Parkinson Discharge Plan Discharge Clinical Impression: Closed hip fracture Patient Disposition: Admitted As Inpatient
[2023-05-26] MEDS: Morphine Sulfate 2 MG/ML CARTRIDGE IVPUSH (20:30)
[2023-05-26] MEDS: ondansetron HCL 4 MG/2 ML VIAL IVPUSH (20:30)
[2023-05-26 20:35] LABS: MANUAL DIFF FLAG NO
[2023-05-26 20:36] VITALS: BP 104/60; BP 97/64; PULSE 64; PULSE 90; RESP 16; TEMP 36.4; O2SAT 94; O2SAT 96; BMI 20.5
[2023-05-26 20:36] LABS: Basophils Percent Auto 0.6 % (0-2); Eosinophils Absolute Auto 0.2 X10*3/uL (0.0-0.4); Eosinophils Percent Auto 3.7 % (0-4); Hematocrit 35.4 % (37.0-47.0); Hemoglobin 11.9 g/dl (12.0-16.0); Imm Gran Abs Auto 0.02 X10*3/uL (0.00-0.03); Imm Gran Pct Auto 0.4 % (0.0-0.4); Lymphocytes Absolute Auto 1.4 X10*3/uL (1.2-4.9); Lymphocytes Percent Auto 25.4 % (20-40); Mean Corpuscular HGB Conc 33.6 g/dl (31.0-35.0); Mean Corpuscular Hemoglobin 31.7 pg (27.0-33.0); Mean Corpuscular Volume 94.4 fL (80.0-98.0); Mean Platelet Volume 11.1 fL (9.4-12.3); Monocytes Absolute Auto 0.5 X10*3/uL (0.1-1.2); Monocytes Percent Auto 9.5 % (2-11); Neutrophils Absolute Auto 3.3 x10*3/uL (2.0-8.3); Neutrophils Percent Auto 60.4 % (45-73); Platelet Count 173 X10*3/uL (160-400); Red Blood Count 3.75 X10*6/uL (4.20-5.50); Red Cell Distribution Width 13.3 % (11.0-16.0); White Blood Count 5.4 X10*3/uL (4.8-10.8)
--- NOTE | 2023-05-26 20:43 | PC.NURSE ---
Pt presents to ED from home after a mechanical fall. Pt has hx of Parkinson's. Pt was walking in her kitchen to get a glass of water and had a mechanical fall. Pt denies head strike, LOC, chest pain, dizziness, SOB. Pt presents A&Ox4, GCS 15, with warm, dry skin. Pt has pain in her right hip. Leg seems slightly shortened, CSM in tact. When pt is resting, reports pain is a 1 or 2. But pain increased when getting moved by EMS. Dr Villarreal has seen the pt, a 20g IV inserted into the left forearm, labs were drawn and sent, and pt was medicated per JAN. Waiting hip x ray at this time.
[2023-05-26 21:03] LABS: Alanine Aminotransferase < 5 U/L (0-31); Albumin Level 4.1 g/dL (3.5-5.0); Alkaline Phosphatase 63 U/L (39-117); Anion Gap 14 (12-20); Aspartate Amino Transferase 17 U/L (5-31); Bilirubin Total 0.5 mg/dL (0.0-1.0); Blood Urea Nitrogen 19 mg/dL (9-16); Calcium 9.5 mg/dL (8.4-10.2); Carbon Dioxide 22 mmol/L (22-29); Chloride 111 mmol/L (96-108); Creatinine Clr Calc Pharmacy 40.3; Estimated Glomerular Filt Rate > 60; Glucose Random 139 mg/dL (60-115); Potassium 4.6 mmol/L (3.3-5.1); Sodium 142 mmol/L (135-145); Total Protein 6.5 g/dL (6.5-8.0)
--- NOTE | 2023-05-26 21:08 | ECG_ITS ---
Test Reason : CHEST PAIN Blood Pressure : / mmHG Vent. Rate : 085 BPM Atrial Rate : 085 BPM P-R Int : 228 ms QRS Dur : 090 ms QT Int : 378 ms P-R-T Axes : 050 016 070 degrees QTc Int : 449 ms Sinus rhythm with 1st degree A-V block Septal infarct (cited on or before 26-MAY-2023) Abnormal ECG When compared with ECG of 01-JAN-2019 08:15, Questionable change in initial forces of Septal leads ST no longer depressed in Inferior leads Nonspecific T wave abnormality now evident in Anterior leads Referred By: García Villarreal Electronically Signed By:MANUELA CHONG MD
[2023-05-26] MEDS: 0.9 % Sodium Chloride 1,000 ML 100 ML IVCONT (21:26)
[2023-05-26] MEDS: Morphine Sulfate 4 MG/ML CARTRIDGE IVPUSH (21:28)
--- NOTE | 2023-05-26 21:45 | PHA.MEDREC ---
Pharmacy Consult ? Medication Reconciliation Pharmacy has completed the medication reconciliation. Patient able to name all medications, at bedside and said he would bring in nonformulary medications tomorrow morning
--- NOTE | 2023-05-26 22:08 | P.HPHOSP_ITS ---
History of Present Illness Date of Service: 05/26/23 Chief Complaint: fall 82-year-old female past medical history of Parkinson's disease, hypothyroidism presents the hospital with complaints of a fall and hip pain. Patient reports that she walked to the kitchen, lost her balance and had a fall. She denies any loss of consciousness, no palpitations, no dizziness, no prodromal or postictal symptoms. Once she fell she has significant right-sided pain including moving knew something was wrong. Patient was brought into the hospital and found to have a right hip fracture. On arrival to the ED patient hemodynamically stable labs unremarkable case discussed with Orthopedic surgery, patient will be admitted and plan for surgery in a.m. Review of Systems Review of Systems: Yes all other systems are reviewed and are negative [facility] Medical History Hypothyroidism Parkinson's disease Surgical History History of hand surgery History of total hip replacement Social History Alcohol intake: current Alcohol intake frequency: holidays/special occasions only Alcohol type: hard liquor Patient Tobacco Use Status: Current someday Tobacco user Tobacco use type: Cigarette Cigarettes Per Day: 4 Years Smoked: 35 Smoked in Last 30 Days: Yes Use of substances other than those prescribed or required for medical reasons: No Advance Directives: No Advance Directives Information Provided: Yes Current occupational status: retired and disabled 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 Allergies Allergy/AdvReac Type Severity Reaction Status Date / Time alendronate sodium AdvReac Unknown Unknown Verified 04/05/23 09:11 [From Fosamax] Active Medications: Current Medications Acetaminophen (Acetaminophen 325 Mg Tablet) 650 mg PO Q6H PRN PRN Reason: Pain, Mild (Pain Scale 1-3) Docusate Sodium (Docusate Sodium 100 Mg Capsule) 100 mg PO DAILY PRN PRN Reason: Constipation Hydromorphone HCl (Hydromorphone Hcl 1 Mg/Ml Syringe) 0.5 mg IVPUSH Q4H PRN; Protocol PRN Reason: Pain, Severe (Pain Scale 7-10) Sodium Chloride (Ns) 1,000 mls @ 100 mls/hr IVCONT .Q10H AMY Last Admin: 07/13/23 21:26 Dose: 100 mls/hr Morphine Sulfate (Morphine Sulfate 4 Mg/Ml Cartridge) 4 mg IVPUSH Q4H PRN; Protocol PRN Reason: Pain, Moderate(Pain Scale 4-6) Ondansetron HCl (Ondansetron Hcl 4 Mg/2 Ml Vial) 4 mg IVPUSH Q8H PRN PRN Reason: Nausea and Vomiting Sodium Chloride (0.9 % Sodium Chloride Flush 3 Ml Syringe) 3 ml IVFLUSH QSHIFT [facility] Home Medications Medication Instructions Recorded Confirmed Last Taken Type cholecalciferol (vitamin D3) 50 50 mcg PO DAILY 01/19/22 05/26/23 05/26/23 History mcg (2,000 unit) capsule levothyroxine 75 mcg tablet 75 mcg PO DAILY@0600 01/19/22 05/26/23 05/26/23 History mecobalamin (vitamin B12) 1,000 1,000 mcg PO DAILY 04/05/23 05/26/23 05/26/23 History mcg chewable tablet carbidopa ER 23.75 mg-levodopa 95 3 cap PO BID@1500,2100 05/26/23 05/26/23 05/26/23 History mg capsule,extended release (Rytary) carbidopa ER 23.75 mg-levodopa 95 4 cap PO DAILY 05/26/23 05/26/23 05/26/23 History mg capsule,extended release (Rytary) Physical Exam Vital Signs and Narrative: Vital Signs: Last Vital Signs Temp 97.5 F 05/26/23 20:36 Pulse 64 05/26/23 20:36 Resp 16 05/26/23 20:36 BP 97/64 05/26/23 20:36 Pulse Ox 96 05/26/23 20:36 O2 Del Method Room Air 05/26/23 20:36 BMI result Body Mass Index 20.5 Const: General: cooperative and no acute distress Orientation/consciousness: patient oriented x3 Eyes: General: appearance normal, both eyes and all related structures Resp: Effort & Inspection: normal respiratory effort Auscultation: clear to auscultation bilaterally Cardio: Rate: regular rate Rhythm: regular rhythm GI: Palpation (GI): Soft to palpation Auscultation: normal bowel sounds Skin: General skin exam: no rashes or lesions noted Neuro: General: patient oriented x3 Cognition (Neuro): normal cognition Extrem: Other: right leg externally rotated, Results Labs 05/26/23 20:29 05/26/23 20:29 Labs: Laboratory Results - last 24 hr 05/26/23 05/26/23 20:29 20:29 MCV 94.4 MCH 31.7 MCHC 33.6 RDW 13.3 Plt Count 173 MPV 11.1 Immature Gran % (Auto) 0.4 Neut % (Auto) 60.4 Lymph % (Auto) 25.4 Mcdonald % (Auto) 9.5 Eos % (Auto) 3.7 Baso % (Auto) 0.6 Lymph # (Auto) 1.4 Mcdonald # (Auto) 0.5 Eos # (Auto) 0.2 Baso # (Auto) 0.0 Abs Immat Gran (auto) 0.02 Absolute Neuts (auto) 3.3 Absolute Nucleated RBC 0.000 Nucleated RBC % (auto) 0.0 Anion Gap 14 Estim Creat Clear Calc 40.3 Estimated GFR > 60 Random Glucose 139 H Calcium 9.5 Total Bilirubin 0.5 AST 17 ALT < 5 Alkaline Phosphatase 63 Total Protein 6.5 Albumin 4.1 Assessment and Plan (1) Closed hip fracture: Status: Acute (2) Falls: Status: Acute Plan 82-year-old female past medical history of punctate since disease with gait instability comes into the hospital after having a mechanical fall found to have a right hip fracture # right hip fracture - secondary to mechanical fall - NPO after midnight - plan for surgery in a.m. - orthopedic team aware # Parkinson's disease - continue home medications # hypothyroidism - continue levothyroxine DVT prophylaxis: SCDs given patient's need for surgical intervention in the setting of hip fracture patient require minimum 2 nights inpatient hospital stay for further management and monitoring Time Spent With Patient Time: Total time managing care of this patient today ____ minutes. Quality Stroke Does the patient have a stroke diagnosis?: No VTE Prior VTE?: No VTE Risk Level:: Surgical - very high VTE Device Contraindication: N/A - Device Ordered VTE Drug Contraindication: Treatment Not Indicated
[2023-05-26 23:19] VITALS: BP 142/83; PULSE 87; RESP 18; TEMP 36.4; O2SAT 98
--- NOTE | 2023-05-26 23:45 | PC.NURSE ---
Attempted to call report at [phone], nurse is busy, stated she will call me back.
[2023-05-27] VITALS (12 sets, daily range): BP systolic 88–169; BP diastolic 53–84; PULSE 80–91; RESP 14–20; TEMP 36.1–37; O2SAT 94–98; BMI 21.6
[2023-05-27] MEDS: Morphine Sulfate 4 MG/ML CARTRIDGE IVPUSH (01:46)
[2023-05-27] MEDS: 0.9 % Sodium Chloride 1,000 ML 100 ML IVCONT ×3 (01:51→18:50)
[2023-05-27] MEDS: Levothyroxine Sodium 75 MCG TABLET PO (06:04)
[2023-05-27 06:45] LABS: MANUAL DIFF FLAG NO
[2023-05-27 06:52] LABS: Basophils Percent Auto 0.5 % (0-2); Eosinophils Absolute Auto 0.2 X10*3/uL (0.0-0.4); Eosinophils Percent Auto 2.8 % (0-4); Hematocrit 32.7 % (37.0-47.0); Hemoglobin 10.6 g/dl (12.0-16.0); Imm Gran Abs Auto 0.03 X10*3/uL (0.00-0.03); Imm Gran Pct Auto 0.5 % (0.0-0.4); Lymphocytes Absolute Auto 1.3 X10*3/uL (1.2-4.9); Lymphocytes Percent Auto 20.6 % (20-40); Mean Corpuscular HGB Conc 32.4 g/dl (31.0-35.0); Mean Corpuscular Hemoglobin 31.5 pg (27.0-33.0); Mean Corpuscular Volume 97.3 fL (80.0-98.0); Mean Platelet Volume 11.6 fL (9.4-12.3); Monocytes Absolute Auto 0.6 X10*3/uL (0.1-1.2); Monocytes Percent Auto 9.2 % (2-11); Neutrophils Absolute Auto 4.2 x10*3/uL (2.0-8.3); Neutrophils Percent Auto 66.4 % (45-73); Platelet Count 167 X10*3/uL (160-400); Red Blood Count 3.36 X10*6/uL (4.20-5.50); Red Cell Distribution Width 13.3 % (11.0-16.0); White Blood Count 6.3 X10*3/uL (4.8-10.8)
[2023-05-27 07:06] LABS: Anion Gap 9 (12-20); Blood Urea Nitrogen 17 mg/dL (9-16); Carbon Dioxide 23 mmol/L (22-29); Chloride 114 mmol/L (96-108); Creatinine Clr Calc Pharmacy 49.1; Estimated Glomerular Filt Rate > 60; Glucose Random 100 mg/dL (60-115); Potassium 4.2 mmol/L (3.3-5.1); Sodium 142 mmol/L (135-145)
--- NOTE | 2023-05-27 10:00 | P.CONOP_ITS ---
History of Present Illness HPI Consult date: 05/27/23 Chief complaint: hip fracture Narrative: This is an 82-year-old female who presented to the emergency department after sustaining a fall at home. She states that she was walking to the kitchen and she lost her balance and fell. She was unable to get up and ambulate due to the pain. She does have a past medical history of Parkinson's which makes her unsteady on her feet. She denies any loss of consciousness. She lives at home with her . EMS was called and she was transported to the emergency department for further evaluation. On x-rays she was found to have a right intertrochanteric fracture of the femur. Approximately 3-5 years ago she sustained a left hip fracture which resulted in a left intramedullary nail. This was done by Dr. Giraldo. Orthopedics was consulted for further recommendations. Review of Systems Review of Systems: Per [facility] Past Medical History Medical History Hypothyroidism Parkinson's disease Surgical History Surgical History History of hand surgery History of total hip replacement Social History Social History Household Members: Spouse Housing: House Do you presently have visiting nurse or other home services: No Alcohol intake: current Alcohol intake frequency: holidays/special occasions only Alcohol type: hard liquor Patient Tobacco Use Status: Current everyday Tobacco user Tobacco use type: Cigarette Cigarettes Per Day: 2 Years Smoked: 35 Second Hand Smoke Exposure: Yes Current occupational status: retired and disabled 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 Allergies Allergy/AdvReac Type Severity Reaction Status Date / Time alendronate sodium AdvReac Unknown Unknown Verified 04/05/23 09:11 [From Fosamax] Active Medications: Current Medications Acetaminophen (Acetaminophen 325 Mg Tablet) 650 mg PO Q6H PRN PRN Reason: Pain, Mild (Pain Scale 1-3) Cyanocobalamin (Cyanocobalamin (Vitamin B-12) 1,000 Mcg Tablet) 1,000 mcg PO DAILY AMY Last Admin: 05/27/23 09:28 Dose: Not Given Docusate Sodium (Docusate Sodium 100 Mg Capsule) 100 mg PO DAILY PRN PRN Reason: Constipation Hydromorphone HCl (Hydromorphone Hcl 1 Mg/Ml Syringe) 0.5 mg IVPUSH Q4H PRN; Protocol PRN Reason: Pain, Severe (Pain Scale 7-10) Sodium Chloride (Ns) 1,000 mls @ 100 mls/hr IVCONT .Q10H [facility] Last Admin: 05/27/23 01:51 Dose: 100 mls/hr Cefazolin Sodium/Dextrose (Ancef) 2 gm in 50 mls @ 100 mls/hr IV PREOP ONE Stop: 05/27/23 10:06 Levothyroxine Sodium (Levothyroxine Sodium 75 Mcg Tablet) 75 mcg PO DAILY@0600 [facility] Last Admin: 05/27/23 06:04 Dose: 75 mcg Morphine Sulfate (Morphine Sulfate 4 Mg/Ml Cartridge) 4 mg IVPUSH Q4H PRN; Protocol PRN Reason: Pain, Moderate(Pain Scale 4-6) Last Admin: 05/27/23 01:46 Dose: 4 mg Non-Formulary Medication (Carbidopa-Levodopa [Rytary]) 3 cap PO BID@1500,2100 [facility] Non-Formulary Medication (Carbidopa-Levodopa [Rytary]) 4 cap PO DAILY [facility] Non-Formulary Medication (Selegiline Hcl) 5 mg PO BID [facility] Ondansetron HCl (Ondansetron Hcl 4 Mg/2 Ml Vial) 4 mg IVPUSH Q8H PRN PRN Reason: Nausea and Vomiting Sodium Chloride (0.9 % Sodium Chloride Flush 3 Ml Syringe) 3 ml IVFLUSH QSHIFT [facility] Last Admin: 05/27/23 09:31 Dose: Not Given Vitamin D (Cholecalciferol (Vitamin D3) 25 Mcg Tablet) 50 mcg PO DAILY [facility] Last Admin: 05/27/23 09:28 Dose: Not Given Home Medications Medication Instructions Recorded Confirmed Last Taken Type cholecalciferol (vitamin D3) 50 50 mcg PO DAILY 01/19/22 05/26/23 05/26/23 History mcg (2,000 unit) capsule levothyroxine 75 mcg tablet 75 mcg PO DAILY@0600 01/19/22 05/26/23 05/26/23 History mecobalamin (vitamin B12) 1,000 1,000 mcg PO DAILY 04/05/23 05/26/23 05/26/23 History mcg chewable tablet carbidopa ER 23.75 mg-levodopa 95 3 cap PO BID@1500,2100 05/26/23 05/26/23 05/26/23 History mg capsule,extended release (Rytary) carbidopa ER 23.75 mg-levodopa 95 4 cap PO DAILY 05/26/23 05/26/23 05/26/23 History mg capsule,extended release (Rytary) Physical Exam Vital Signs: Vital Signs: Last Vital Signs Temp 97.3 F 05/27/23 07:22 Pulse 82 05/27/23 07:22 Resp 16 05/27/23 07:22 BP 169/73 H 05/27/23 07:22 Pulse Ox 98 05/27/23 07:22 O2 Del Method Room Air 05/27/23 07:22 BMI result Body Mass Index 21.6 Const: General: cooperative, healthy appearing, comfortable and no acute distress Extrem: Other: Right hip normal to inspection. No open wounds or lacerations. She does have pain with log roll. Unable to straight leg raise. Peripheral pulses are p resent. Sensation intact. Results Labs 05/27/23 05:53 05/27/23 05:53 Labs: Abnormal lab results 05/26/23 05/26/23 05/27/23 Range/Units 20:29 20:29 05:53 RBC 3.75 L 3.36 L (4.20-5.50) X10*6/uL Hgb 11.9 L 10.6 L (12.0-16.0) g/dl Hct 35.4 L 32.7 L (37.0-47.0) % Immature Gran % (Auto) 0.5 H (0.0-0.4) % Chloride 111 H (96-108) mmol/L Anion Gap (12-20) BUN 19 H (9-16) mg/dL Random Glucose 139 H (60-115) mg/dL 05/27/23 Range/Units 05:53 RBC (4.20-5.50) X10*6/uL Hgb (12.0-16.0) g/dl Hct (37.0-47.0) % Immature Gran % (Auto) (0.0-0.4) % Chloride 114 H (96-108) mmol/L Anion Gap 9 L (12-20) BUN 17 H (9-16) mg/dL Random Glucose (60-115) mg/dL H & H 05/26/23 05/27/23 Range/Units 20:29 05:53 Hgb 11.9 L 10.6 L (12.0-16.0) g/dl Hct 35.4 L 32.7 L (37.0-47.0) % All other labs normal. Diagnostic results Hip x-ray: image reviewed (X-rays of the right hip with pelvis obtained in the emergency department show an intertrochanteric fracture of the right femur.) Assessment and Plan (1) Fracture, intertrochanteric, right femur: Status: Acute Plan I discussed the case with Dr Giraldo and explained the extent of the injury to the patient and options available which include surgical intervention. I explained the procedure in detail along with the length of recovery and rehab course. I explained the risk, benefits and alternatives. Risk including, but not limited to infection, blood clots, bleeding, non union or malunion and nerve/tissue damage to surrounding areas. I answered all their questions and with their understanding they have consented to move forward with Operative Fixa tion of the right hip . The patient will be T&S, med clearance obtained and remain NPO. 's name is Bill he was at bedside during the consultation. Time Spent With Patient Time: Total time managing care of this patient today ____ minutes. Procedures Date of Service Date of Service: 05/27/23
--- NOTE | 2023-05-27 12:42 | P.PNIM_ITS ---
Subjective Subjective Date of Service: 05/27/23 Interval History: Being followed for acute right hip fracture after mechanical falls complaining of hip pain with movement, offers no other acute complaints, no headache no dizziness, no nausea no vomiting, is NPO for right hip surgery. Review of Systems All other system reviewed and negative. Physical Exam Vital Signs: Vital Signs: Last Vital Signs Temp 97.3 F 05/27/23 07:22 Pulse 82 05/27/23 07:22 Resp 16 05/27/23 07:22 BP 169/73 H 05/27/23 07:22 Pulse Ox 98 05/27/23 07:22 O2 Del Method Room Air 05/27/23 07:22 BMI result Body Mass Index 21.6 Const: Other: General resting comfortably in no acute distress. Neck supple no JVD. CVS regular rate rhythm, Respiratory lungs clear to auscultation, no respiratory distress, no wheeze, no rhonchi. Gastrointestinal abdomen soft, nontender, bowel sounds audible, no guarding , no rigidity. Extremities no edema. Neuro nonfocal Skin no rash Right hip externally rotated Objective Data Active Medications Acetaminophen (Acetaminophen 325 Mg Tablet) 650 mg PO Q6H PRN PRN Reason: Pain, Mild (Pain Scale 1-3) Cyanocobalamin (Cyanocobalamin (Vitamin B-12) 1,000 Mcg Tablet) 1,000 mcg PO DAILY [facility] Last Admin: 05/27/23 09:28 Dose: Not Given Documented By: RASHEEDA Non-Admin Reason: NPO Docusate Sodium (Docusate Sodium 100 Mg Capsule) 100 mg PO DAILY PRN PRN Reason: Constipation Hydromorphone HCl (Hydromorphone Hcl 1 Mg/Ml Syringe) 0.5 mg IVPUSH Q4H PRN; Protocol PRN Reason: Pain, Severe (Pain Scale 7-10) Sodium Chloride (Ns) 1,000 mls @ 100 mls/hr IVCONT .Q10H [facility] Last Admin: 05/27/23 11:03 Dose: 100 mls/hr Documented By: RASHEEDA Levothyroxine Sodium (Levothyroxine Sodium 75 Mcg Tablet) 75 mcg PO DAILY@0600 [facility] Last Admin: 05/27/23 06:04 Dose: 75 mcg Documented By: GERMAINE Morphine Sulfate (Morphine Sulfate 4 Mg/Ml Cartridge) 4 mg IVPUSH Q4H PRN; Protocol PRN Reason: Pain, Moderate(Pain Scale 4-6) Last Admin: 05/27/23 01:46 Dose: 4 mg Documented By: GERMAINE Non-Formulary Medication (Carbidopa-Levodopa [Rytary]) 3 cap PO BID@1500,2100 [facility] Non-Formulary Medication (Carbidopa-Levodopa [Rytary]) 4 cap PO DAILY [facility] Pt Own (Selegiline (Hcl 5 Mg Tablet)) 5 mg PO BID [facility] Ondansetron HCl (Ondansetron Hcl 4 Mg/2 Ml Vial) 4 mg IVPUSH Q8H PRN PRN Reason: Nausea and Vomiting Sodium Chloride (0.9 % Sodium Chloride Flush 3 Ml Syringe) 3 ml IVFLUSH QSHIFT [facility] Last Admin: 05/27/23 09:31 Dose: Not Given Documented By: RASHEEDA Non-Admin Reason: IV Running Vitamin D (Cholecalciferol (Vitamin D3) 25 Mcg Tablet) 50 mcg PO DAILY [facility] Last Admin: 05/27/23 09:28 Dose: Not Given Documented By: RASHEEDA Non-Admin Reason: NPO Labs 05/27/23 05:53 05/27/23 05:53 Labs: Laboratory Results - last 24 hr 05/26/23 05/26/23 05/27/23 20:29 20:29 05:53 MCV 94.4 97.3 MCH 31.7 31.5 MCHC 33.6 32.4 RDW 13.3 13.3 Plt Count 173 167 MPV 11.1 11.6 Immature Gran % (Auto) 0.4 0.5 H Neut % (Auto) 60.4 66.4 Lymph % (Auto) 25.4 20.6 [place] % (Auto) 9.5 9.2 Eos % (Auto) 3.7 2.8 Baso % (Auto) 0.6 0.5 Lymph # (Auto) 1.4 1.3 [place] # (Auto) 0.5 0.6 Eos # (Auto) 0.2 0.2 Baso # (Auto) 0.0 0.0 Abs Immat Gran (auto) 0.02 0.03 Absolute Neuts (auto) 3.3 4.2 Absolute Nucleated RBC 0.000 0.000 Nucleated RBC % (auto) 0.0 0.0 Anion Gap 14 Estim Creat Clear Calc 40.3 Estimated GFR > 60 Random Glucose 139 H Calcium 9.5 Total Bilirubin 0.5 AST 17 ALT < 5 Alkaline Phosphatase 63 Total Protein 6.5 Albumin 4.1 Blood Type Antibody Screen 05/27/23 05/27/23 05:53 10:34 MCV MCH MCHC RDW Plt Count MPV Immature Gran % (Auto) Neut % (Auto) Lymph % (Auto) [place] % (Auto) Eos % (Auto) Baso % (Auto) Lymph # (Auto) [place] # (Auto) Eos # (Auto) Baso # (Auto) Abs Immat Gran (auto) Absolute Neuts (auto) Absolute Nucleated RBC Nucleated RBC % (auto) Anion Gap 9 L Estim Creat Clear Calc 49.1 Estimated GFR > 60 Random Glucose 100 Calcium 9.0 Total Bilirubin AST ALT Alkaline Phosphatase Total Protein Albumin Blood Type O Positive Antibody Screen NEGATIVE Assessment and Plan (1) Fracture, intertrochanteric, right femur: Status: Acute (2) Parkinson's disease: Status: Acute Plan 82-year-old female past medical history of punctate since disease with gait instability comes into the hospital after having a mechanical fall found to have a right hip fracture #?Acute right hip fracture - secondary to mechanical fall -?seen by Ortho scheduled for surgery today Continue IV Dilaudid for pain control, continue IV fluid, resume diet after surgery Follow CBC, add stool softeners/PT. #? Parkinson's disease -? continue home medications #? hypothyroidism -? continue levothyroxine DVT prophylaxis: SCDs ?given patient's need for surgical intervention in the setting of hip fracture patient will need continued inpatient hospitalization for further management and monitoring. Time Spent With Patient Time: Total time managing care of this patient today ____ minutes. Quality Stroke Does the patient have a stroke diagnosis?: No VTE Prior VTE?: No VTE Risk Level:: Surgical - very high VTE Device Contraindication: N/A - Device Ordered VTE Drug Contraindication: Treatment Not Indicated
--- NOTE | 2023-05-27 15:21 | MHC.CM.PN ---
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
--- NOTE | 2023-05-27 16:51 | HO.ANESPROP2 ---
FORM[facility]LY [facility], LATER [facility] Active Problems Active Problems: All Active Problems (Updated 05/27/23 @ 10:03 by Fermin Rodriguez PA-C) REM sleep behavior disorder (Acute) Finger fracture, left (Acute) Fracture of fifth metacarpal bone of left hand (Acute) Traumatic rupture of collateral ligament of left middle finger at metacarpophalangeal and interphalangeal joint, sequela (Acute) Falls (Acute) Closed hip fracture (Acute) Fracture, intertrochanteric, right femur (Acute) Parkinson's disease (Acute) Past Medical History Medical History Hypothyroidism Parkinson's disease Family History Family history of problems with anesthesia: No Surgical History Surgical History History of hand surgery History of total hip replacement Hx of colonoscopy History of Problems with Anesthesia: No Social History Social History Household Members: Spouse Housing: House Do you presently have visiting nurse or other home services: No Alcohol intake: current Alcohol intake frequency: holidays/special occasions only Alcohol type: hard liquor Patient Tobacco Use Status: Current everyday Tobacco user Tobacco use type: Cigarette Cigarettes Per Day: 4 Years Smoked: 35 Second Hand Smoke Exposure: Yes service: No Current occupational status: retired and disabled 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 Allergies Allergy/AdvReac Type Severity Reaction Status Date / Time alendronate sodium AdvReac Unknown Unknown Verified 04/05/23 09:11 [From Fosamax] Active Medications: Current Medications Acetaminophen (Acetaminophen 325 Mg Tablet) 650 mg PO Q6H PRN PRN Reason: Pain, Mild (Pain Scale 1-3) Cyanocobalamin (Cyanocobalamin (Vitamin B-12) 1,000 Mcg Tablet) 1,000 mcg PO DAILY [facility] Last Admin: 05/27/23 09:28 Dose: Not Given Docusate Sodium (Docusate Sodium 100 Mg Capsule) 100 mg PO DAILY PRN PRN Reason: Constipation Hydromorphone HCl (Hydromorphone Hcl 1 Mg/Ml Syringe) 0.5 mg IVPUSH Q4H PRN; Protocol PRN Reason: Pain, Severe (Pain Scale 7-10) Sodium Chloride (Ns) 1,000 mls @ 100 mls/hr IVCONT .Q10H [facility] Last Admin: 05/27/23 11:03 Dose: 100 mls/hr Levothyroxine Sodium (Levothyroxine Sodium 75 Mcg Tablet) 75 mcg PO DAILY@0600 [facility] Last Admin: 05/27/23 06:04 Dose: 75 mcg Morphine Sulfate (Morphine Sulfate 4 Mg/Ml Cartridge) 4 mg IVPUSH Q4H PRN; Protocol PRN Reason: Pain, Moderate(Pain Scale 4-6) Last Admin: 05/27/23 01:46 Dose: 4 mg Carbidopa-Grsabfzi43 (.75-95 Mg Capsule,Er) 3 cap PO BID@1500,2100 [facility] Last Admin: 05/27/23 13:44 Dose: Not Given Carbidopa-Levodopa 23.75-95 Mg Capsule, Er 4 cap PO DAILY [facility] Last Admin: 05/27/23 13:44 Dose: Not Given Pt Own (Selegiline (Hcl 5 Mg Tablet)) 5 mg PO BID [facility] Last Admin: 05/27/23 13:03 Dose: 5 mg Ondansetron HCl (Ondansetron Hcl 4 Mg/2 Ml Vial) 4 mg IVPUSH Q8H PRN PRN Reason: Nausea and Vomiting Sodium Chloride (0.9 % Sodium Chloride Flush 3 Ml Syringe) 3 ml IVFLUSH QSHIFT [facility] Last Admin: 05/27/23 09:31 Dose: Not Given Vitamin D (Cholecalciferol (Vitamin D3) 25 Mcg Tablet) 50 mcg PO DAILY [facility] Last Admin: 05/27/23 09:28 Dose: Not Given Home Medications Medication Instructions Recorded Confirmed Last Taken Type cholecalciferol (vitamin D3) 50 50 mcg PO DAILY 01/19/22 05/26/23 05/26/23 History mcg (2,000 unit) capsule levothyroxine 75 mcg tablet 75 mcg PO DAILY@0600 01/19/22 05/26/23 05/26/23 History mecobalamin (vitamin B12) 1,000 1,000 mcg PO DAILY 04/05/23 05/26/23 05/26/23 History mcg chewable tablet carbidopa ER 23.75 mg-levodopa 95 3 cap PO BID@1500,2100 05/26/23 05/26/23 05/26/23 History mg capsule,extended release (Rytary) carbidopa ER 23.75 mg-levodopa 95 4 cap PO DAILY 05/26/23 05/26/23 05/26/23 History mg capsule,extended release (Rytary) Exam Exam Date and Time: May 27, 2023 165 Height,Weight and Vital Signs: Height 5 ft 3 in Weight 55.4 kg Last Vital Signs Temp 97.0 F 05/27/23 13:45 Pulse 80 05/27/23 13:45 Resp 15 05/27/23 13:45 BP 148/84 H 05/27/23 13:45 Pulse Ox 97 05/27/23 13:45 O2 Del Method Room Air 05/27/23 13:45 Pertinent Lab Results Pertinent Lab Results: Laboratory Tests 05/26/23 05/26/23 05/27/23 20:29 20:29 05:53 WBC 5.4 6.3 RBC 3.75 L 3.36 L Hgb 11.9 L 10.6 L Hct 35.4 L 32.7 L MCV 94.4 97.3 MCH 31.7 31.5 MCHC 33.6 32.4 RDW 13.3 13.3 Plt Count 173 167 MPV 11.1 11.6 Immature Gran % (Auto) 0.4 0.5 H Neut % (Auto) 60.4 66.4 Lymph % (Auto) 25.4 20.6 [place] % (Auto) 9.5 9.2 Eos % (Auto) 3.7 2.8 Baso % (Auto) 0.6 0.5 Lymph # (Auto) 1.4 1.3 [place] # (Auto) 0.5 0.6 Eos # (Auto) 0.2 0.2 Baso # (Auto) 0.0 0.0 Abs Immat Gran (auto) 0.02 0.03 Absolute Neuts (auto) 3.3 4.2 Absolute Nucleated RBC 0.000 0.000 Nucleated RBC % (auto) 0.0 0.0 Sodium 142 Potassium 4.6 Chloride 111 H Carbon Dioxide 22 Anion Gap 14 BUN 19 H Creatinine 0.89 Estim Creat Clear Calc 40.3 Estimated GFR > 60 Random Glucose 139 H Calcium 9.5 Total Bilirubin 0.5 AST 17 ALT < 5 Alkaline Phosphatase 63 Total Protein 6.5 Albumin 4.1 Blood Type Antibody Screen 07/14/23 07/14/23 05:53 10:34 WBC RBC Hgb Hct MCV MCH MCHC RDW Plt Count MPV Immature Gran % (Auto) Neut % (Auto) Lymph % (Auto) [place] % (Auto) Eos % (Auto) Baso % (Auto) Lymph # (Auto) [place] # (Auto) Eos # (Auto) Baso # (Auto) Abs Immat Gran (auto) Absolute Neuts (auto) Absolute Nucleated RBC Nucleated RBC % (auto) Sodium 142 Potassium 4.2 Chloride 114 H Carbon Dioxide 23 Anion Gap 9 L BUN 17 H Creatinine 0.73 Estim Creat Clear Calc 49.1 Estimated GFR > 60 Random Glucose 100 Calcium 9.0 Total Bilirubin AST ALT Alkaline Phosphatase Total Protein Albumin Blood Type O Positive Antibody Screen NEGATIVE Airway Mallampati Class: II TM Dist: >3cm Neck ROM: Full Denture: Upper and Lower Heart: RRR Lungs: CTA Assessment and Plan Final Anesthetic Review Family History of Problems with Anesthesia: No History of Problems with Anesthesia: No ASA Class: II and Emergency Final Preanesthetic Review: Meds/Allgs Chart Reviewed, Consent Obtained/Reviewed and Anes Risks/Benef Reviewed Patient Risk: Intermediate Procedure Risk: Intermediate Anesthetic Plan Anesthetic Plan: GA Disposition: Standard PACU
--- NOTE | 2023-05-27 17:09 | PM.OP ---
Brief Operative Note Date of Service: 05/27/23 Pre-op diagnosis: Right hip fracture Post-op diagnosis: same Procedure: Right hip IMN Implants: Aubrey [id number] 125 deg with 95 mm hip screw Surgeon: Ben Giraldo MD Anesthesia: GETA and local Was an Dry Cleaning Machine Operator Helper used for this Procedure?: No Estimated blood loss (mL): 200 IV fluids (mL): 800 Pathology: none sent Condition: stable Disposition: PACU
[2023-05-27] MEDS: 0.9 % Sodium Chloride Flush 3 ML SYRINGE IVFLUSH (18:29)
[2023-05-28] VITALS (13 sets, daily range): BP systolic 80–156; BP diastolic 48–74; PULSE 78–98; RESP 14–18; TEMP 36–37; O2SAT 92–96
--- NOTE | 2023-05-28 00:27 | PM.EVENT ---
Event Note Date of Service: 05/28/23 Event Note: Patient hypotensive likely secondary to analgesics post up. At this time will give her 1 L of fluid. Will obtain lactic acid. But I am not concerned about sepsis. Time Spent With Patient Time: Total time managing care of this patient today ____ minutes.
[2023-05-28] MEDS: Lactated Ringers 1,000 ML 999 ML IV (00:49)
--- NOTE | 2023-05-28 00:53 | PM.EVENT ---
Event Note Date of Service: 05/28/23 Time Spent With Patient Time: Total time managing care of this patient today ____ minutes.
[2023-05-28] MEDS: 0.9 % Sodium Chloride 1,000 ML 100 ML IVCONT (03:47)
[2023-05-28 05:47] LABS: Hematocrit 22.1 % (37.0-47.0); Hemoglobin 7.2 g/dl (12.0-16.0); Mean Corpuscular HGB Conc 32.6 g/dl (31.0-35.0); Mean Corpuscular Hemoglobin 31.3 pg (27.0-33.0); Mean Corpuscular Volume 96.1 fL (80.0-98.0); Mean Platelet Volume 11.2 fL (9.4-12.3); Platelet Count 135 X10*3/uL (160-400); Red Cell Distribution Width 13.5 % (11.0-16.0); White Blood Count 6.9 X10*3/uL (4.8-10.8)
[2023-05-28 05:54] LABS: Lactic Acid 0.8 mmol/L (0.5-2.0)
[2023-05-28 05:57] LABS: Anion Gap 8 (12-20); Blood Urea Nitrogen 13 mg/dL (9-16); Calcium 8.1 mg/dL (8.4-10.2); Carbon Dioxide 22 mmol/L (22-29); Chloride 115 mmol/L (96-108); Estimated Glomerular Filt Rate > 60; Glucose Random 92 mg/dL (60-115); Potassium 4.2 mmol/L (3.3-5.1); Sodium 141 mmol/L (135-145)
[2023-05-28] MEDS: Levothyroxine Sodium 75 MCG TABLET PO (06:19)
--- NOTE | 2023-05-28 07:24 | PC.NURSE ---
Patient's blood pressure 80/48 overnight , pt asymptomatic.. Dr. Hunt notified. LR 1000 ml bolus ordered/administered. Follow up BP was 101/48. Lactic acid ordered , patient refused blood draw . Physician notified.
[2023-05-28] MEDS: Morphine Sulfate 4 MG/ML CARTRIDGE IVPUSH (09:00)
[2023-05-28] MEDS: Cholecalciferol (Vitamin D3) 25 MCG TABLET 50 MCG PO (09:00)
[2023-05-28] MEDS: Cyanocobalamin (Vitamin B-12) 1,000 MCG TABLET 1000 MCG PO (09:00)
[2023-05-28] MEDS: Acetaminophen 325 MG TABLET 650 MG PO ×3 (09:00→20:09)
[2023-05-28] MEDS: 0.9 % Sodium Chloride Flush 3 ML SYRINGE IVFLUSH ×2 (09:01→16:55)
--- NOTE | 2023-05-28 09:02 | PM.PNORT ---
Subjective Subjective Date of Service: 05/28/23 Interval history: POD1 s/p right hip IM Nail. No overnight events. Pain is well managed. No additional complaints. Physical Exam Vital Signs: Vital Signs: Last Vital Signs Temp 97.3 F 05/28/23 07:32 Pulse 86 05/28/23 07:32 Resp 18 05/28/23 07:32 BP 109/55 L 05/28/23 07:32 Pulse Ox 95 05/28/23 07:32 O2 Del Method Room Air 05/28/23 07:32 BMI result Body Mass Index 21.6 Const: General: cooperative, healthy appearing and no acute distress Resp: Effort & Inspection: normal respiratory effort and able to speak in complete sentences Cardio: Rate: regular rate Peripheral pulses: Peripheral pulses 2+ throughout GI: Palpation (GI): Soft to palpation Skin: Lesions: no lesions Rashes: no rashes Extrem: Other: Right hip dressings are c/d/i. Able to dorsi/plantar flex. NVI. Procedures Date of Service Date of Service: 05/28/23 Progress Note: A&P Assessment and plan (1) Closed hip fracture: Status: Acute Assessment and Plan: Continue pain mgmnt Begin Lovenox for dvt ppx begin PT for rt hip IM Nail - WBAT Cont. to monitor H&H - Medicine to transfuse this morning Dispo planning-Pending PT eval, pain mgmnt (2) Fracture, intertrochanteric, right femur: Status: Acute Time Spent With Patient Time: Total time managing care of this patient today ____ minutes. Quality Stroke Does the patient have a stroke diagnosis?: No VTE Prior VTE?: No VTE Risk Level:: Surgical - very high VTE Device Contraindication: N/A - Device Ordered VTE Drug Contraindication: Treatment Not Indicated
--- NOTE | 2023-05-28 10:21 | HO.POSTANES ---
Post Anesthesia Evaluation Post Anesthesia Evaluation Date of Service: 05/27/23 Vital Signs: Vital Signs Temp Pulse Resp BP Pulse Ox O2 Del Method 05/28/23 07:32 97.3 F 86 18 109/55 L 95 Room Air 05/28/23 04:00 96.8 F 78 14 90/53 L 93 Room Air 05/28/23 01:23 91 101/48 L 05/28/23 00:00 96.8 F 84 16 80/48 L 96 Room Air 05/28/23 00:00 96.8 F 83 16 94 Room Air 05/27/23 22:39 106/58 L Anesthesia: General Endotracheal-GETA Mental Status: Awake Pain Control: Satisfactory Nausea/Vomiting: None Hydration: Adequate Anesthesia-Related Issues: No Anes. Related Issues
--- NOTE | 2023-05-28 10:53 | HO.PM.IMPN ---
Subjective Subjective Date of Service: 05/28/23 Interval History: Being followed for right hip fracture, resting comfortably denies hip pain denies headache, no dizziness, no nausea, no vomiting, no abdominal pain tolerating diet , events from last night noted patient was noted to be hypotensive treated with IV fluids blood pressure remains soft this morning noted to have significant drop in hematocrit to 22 from 32.7. Review of Systems All other system reviewed and negative. Physical Exam Vital Signs: Vital Signs: Last Vital Signs Temp 97.4 F 05/28/23 10:42 Pulse 92 05/28/23 10:42 Resp 18 05/28/23 10:42 BP 98/57 L 05/28/23 10:42 Pulse Ox 95 05/28/23 07:32 O2 Del Method Room Air 05/28/23 07:32 BMI result Body Mass Index 21.6 Const: Other: General? resting comfortably in no acute distress.? Neck supple no JVD. CVS? regular rate rhythm, Respiratory lungs clear to auscultation, no respiratory distress, no wheeze, no rhonchi. Gastrointestinal abdomen soft, non tender, bowel sounds audible, no guarding , no rigidity. Extremities no? edema. Neuro nonfocal Skin no rash Right hip dressing in place Objective Data Active Medications Acetaminophen (Acetaminophen 325 Mg Tablet) 650 mg PO TID [facility] Last Admin: 05/28/23 09:00 Dose: 650 mg Documented By: RASHEEDA Cyanocobalamin (Cyanocobalamin (Vitamin B-12) 1,000 Mcg Tablet) 1,000 mcg PO DAILY [facility] Last Admin: 05/28/23 09:00 Dose: 1,000 mcg Documented By: RASHEEDA Docusate Sodium (Docusate Sodium 100 Mg Capsule) 100 mg PO DAILY PRN PRN Reason: Constipation Enoxaparin Sodium (Enoxaparin Sodium 40 Mg/0.4 Ml Syringe) 40 mg SUBCUT Q24H [facility] Fentanyl (Fentanyl Citrate/Pf 100 Mcg/2 Ml Vial) 25 mcg IVPUSH Q5M PRN; Protocol PRN Reason: Pain, Moderate(Pain Scale 4-6) Hydromorphone HCl (Hydromorphone Hcl 1 Mg/Ml Syringe) 0.5 mg IVPUSH Q4H PRN; Protocol PRN Reason: Pain, Severe (Pain Scale 7-10) Levothyroxine Sodium (Levothyroxine Sodium 75 Mcg Tablet) 75 mcg PO DAILY@0600 [facility] Last Admin: 05/28/23 06:19 Dose: 75 mcg Documented By: JOHN Morphine Sulfate (Morphine Sulfate 4 Mg/Ml Cartridge) 4 mg IVPUSH Q4H PRN; Protocol PRN Reason: Pain, Moderate(Pain Scale 4-6) Last Admin: 05/28/23 09:00 Dose: 4 mg Documented By: RASHEEDA Carbidopa-Levodopa 23.75-95 Mg Capsule, Er 4 cap PO DAILY [facility] Last Admin: 05/28/23 09:10 Dose: 4 cap Documented By: RASHEEDA Comments: pt own med. barcode from pharmacy not accurate. Pt Own (Selegiline (Hcl 5 Mg Tablet)) 5 mg PO BID [facility] Last Admin: 05/28/23 09:09 Dose: 5 mg Documented By: RASHEEDA Carbidopa-Samgesoz40 (.75-95 Mg Capsule,Er) 3 cap PO BID@1500,2100 [facility] Ondansetron HCl (Ondansetron Hcl 4 Mg/2 Ml Vial) 4 mg IVPUSH Q8H PRN PRN Reason: Nausea and Vomiting Ondansetron HCl (Ondansetron Hcl 4 Mg/2 Ml Vial) 4 mg IVPUSH ONCE PRN PRN Reason: Nausea and Vomiting Sodium Chloride (0.9 % Sodium Chloride Flush 3 Ml Syringe) 3 ml IVFLUSH QSHIFT [facility] Last Admin: 05/28/23 09:01 Dose: 3 ml Documented By: RASHEEDA Vitamin D (Cholecalciferol (Vitamin D3) 25 Mcg Tablet) 50 mcg PO DAILY [facility] Last Admin: 05/28/23 09:00 Dose: 50 mcg Documented By: RASHEEDA Labs 05/28/23 05:30 05/28/23 05:30 Labs: Laboratory Results - last 24 hr 05/27/23 05/28/23 05/28/23 10:34 05:30 05:30 MCV 96.1 MCH 31.3 MCHC 32.6 RDW 13.5 Plt Count 135 L MPV 11.2 Absolute Nucleated RBC 0.000 Nucleated RBC % (auto) 0.0 Anion Gap 8 L Estim Creat Clear Calc 56.0 Estimated GFR > 60 Random Glucose 92 Lactic Acid Calcium 8.1 L D Blood Type O Positive Antibody Screen NEGATIVE Crossmatch See Detail 05/28/23 05:30 MCV MCH MCHC RDW Plt Count MPV Absolute Nucleated RBC Nucleated RBC % (auto) Anion Gap Estim Creat Clear Calc Estimated GFR Random Glucose Lactic Acid 0.8 Calcium Blood Type Antibody Screen Crossmatch Assessment and Plan (1) Fracture, intertrochanteric, right femur: Status: Acute (2) Parkinson's disease: Status: Acute Plan 82-year-old female past medical history of punctate since disease with gait instability comes into the hospital after having a mechanical fall found to have a right hip fracture #?Acute right hip fracture due to mechanical fall - postoperative day 1 is status post IMN Good pain control, will add Tylenol schedule t.i.d. and as needed oxycodone Continue IV Dilaudid for pain control,dc IV fluid Follow CBC, cont. stool softeners/PT. # acute on chronic normocytic anemia likely multifactorial dilutional and due to acute blood loss will transfuse 1 unit of packed RBC follow CBC # mild hypotension likely due to anesthesia, anemia and decreased by mouth intake will transfuse blood status post IV fluids monitor blood pressure closely #? Parkinson's disease -? continue home medications #? hypothyroidism -? continue levothyroxine DVT prophylaxis: SCDs ?given patient's recent hip surgery and now anemia, requiring blood transfusion patient will need continued inpatient hospitalization. Time Spent With Patient Time: Total time managing care of this patient today ____ minutes. Quality Stroke Does the patient have a stroke diagnosis?: No VTE Prior VTE?: No VTE Risk Level:: Surgical - very high VTE Device Contraindication: N/A - Device Ordered VTE Drug Contraindication: Treatment Not Indicated
[2023-05-28] MEDS: oxyCODONE HCl Immed Release 5 MG TABLET PO ×2 (13:21→19:09)
[2023-05-28] MEDS: Enoxaparin Sodium 40 MG/0.4 ML SYRINGE SUBCUT (16:54)
--- NOTE | 2023-05-28 19:04 | PC.NURSE ---
Found patient sitting at the edge of bed,alarm went on,assisted patient back to bed with see Nichols alarm placed on also Telesiter placed in patient room with patient aproval
--- NOTE | 2023-05-28 20:25 | PC.NURSE ---
Corrie d/c ,patient DTV #1 at 0200.Patient has great difficulty turning due to pain but does not want more pain meds .
[2023-05-29] VITALS (7 sets, daily range): BP systolic 104–145; BP diastolic 50–70; PULSE 86–101; RESP 16–20; TEMP 35.9–36.2; O2SAT 90–98
[2023-05-29] MEDS: 0.9 % Sodium Chloride Flush 3 ML SYRINGE IVFLUSH ×4 (00:05→23:00)
--- NOTE | 2023-05-29 04:52 | PC.NURSE ---
PATIENT HAD HER ROD CATHETER REMOVED PREVIOUS SHIFT AND DUE TO VOID #1 BTWN [phone]. PT NOTED INCONTINENT OF LARGE AMOUNT OF URINE AT 0415. SKIN CARE PROVIDED, PT PREFERS TO ROLL SELF AND DOES NOT LIKE HANDS ON ASSISTANCE TO TURN; SHE DID WELL GOING SLOW AND USING BED RAILS AT HER OWN PACE. PT DENIED NEED FOR PAIN MEDICATION BOTH PRIOR AND AFTER INCONTINENCE CARE. DENIED PAIN MEDS AT 0000 WELL. PT DID ALLOW STAFF OF 2 TO BOOST HER UP IN BED WITH UNDER PAD. BED ALARM AND CAMERA IN USE FOR SAFETY, CALL [place] USE REINFORCED AND WITHIN REACH. PARKINSONIAN TREMORS NOTED, SPEECH CLEAR, NO S/SX DSISTRESS.
[2023-05-29] MEDS: Levothyroxine Sodium 75 MCG TABLET PO (05:34)
[2023-05-29 06:34] LABS: Hematocrit 23.7 % (37.0-47.0); Hemoglobin 7.8 g/dl (12.0-16.0); Mean Corpuscular HGB Conc 32.9 g/dl (31.0-35.0); Mean Corpuscular Hemoglobin 31.7 pg (27.0-33.0); Mean Corpuscular Volume 96.3 fL (80.0-98.0); Mean Platelet Volume 11.7 fL (9.4-12.3); Platelet Count 122 X10*3/uL (160-400); Red Blood Count 2.46 X10*6/uL (4.20-5.50); Red Cell Distribution Width 13.5 % (11.0-16.0); White Blood Count 5.9 X10*3/uL (4.8-10.8)
[2023-05-29] MEDS: Cyanocobalamin (Vitamin B-12) 1,000 MCG TABLET 1000 MCG PO (08:46)
[2023-05-29] MEDS: Cholecalciferol (Vitamin D3) 25 MCG TABLET 50 MCG PO (08:46)
[2023-05-29] MEDS: Acetaminophen 325 MG TABLET 650 MG PO ×3 (08:46→19:50)
--- NOTE | 2023-05-29 09:10 | PM.PNORT ---
Subjective Subjective Date of Service: 05/29/23 Interval history: POD2 s/p right hip IM Nail. No overnight events. Pain is well managed. No additional complaints. Physical Exam Vital Signs: Vital Signs: Last Vital Signs Temp 97.2 F 05/29/23 07:31 Pulse 91 05/29/23 07:31 Resp 18 05/29/23 07:31 BP 104/50 L 05/29/23 07:31 Pulse Ox 90 L 05/29/23 07:31 O2 Del Method Room Air 05/29/23 07:31 BMI result Body Mass Index 21.6 Const: General: cooperative, healthy appearing and no acute distress Resp: Effort & Inspection: normal respiratory effort and able to speak in complete sentences Cardio: Rate: regular rate Peripheral pulses: Peripheral pulses 2+ throughout GI: Palpation (GI): Soft to palpation Skin: Lesions: no lesions Rashes: no rashes Extrem: Other: Right hip dressings are c/d/i. Able to dorsi/plantar flex. NVI. Procedures Date of Service Date of Service: 05/29/23 Progress Note: A&P Assessment and plan (1) Closed hip fracture: Status: Acute Assessment and Plan: Continue pain mgmnt Continue Lovenox for dvt ppx Continue PT for rt hip IM Nail - WBAT Cont. to monitor H&H - Would recommend 2 units of pRBC's with this mornings H&H at 7.8/23.7 Dispo planning-PT, pain mgmnt (2) Fracture, intertrochanteric, right femur: Status: Acute Time Spent With Patient Time: Total time managing care of this patient today ____ minutes. Quality Stroke Does the patient have a stroke diagnosis?: No VTE Prior VTE?: No VTE Risk Level:: Surgical - very high VTE Device Contraindication: N/A - Device Ordered VTE Drug Contraindication: Treatment Not Indicated
--- NOTE | 2023-05-29 12:44 | HO.PM.IMPN ---
Subjective Subjective Date of Service: 05/29/23 Interval History: Resting comfortably in bed denies pain, but as per nurse moans with change in position, [place] catheter removed, no other acute issues overnight. Review of Systems All other system reviewed and negative. Physical Exam Vital Signs: Vital Signs: Last Vital Signs Temp 97.2 F 05/29/23 07:31 Pulse 91 05/29/23 07:31 Resp 18 05/29/23 07:31 BP 104/50 L 05/29/23 07:31 Pulse Ox 90 L 05/29/23 07:31 O2 Del Method Room Air 05/29/23 07:31 BMI result Body Mass Index 21.6 Const: Other: General? resting comfortably in no acute distress.? Neck supple no JVD. CVS? regular rate rhythm, Respiratory lungs clear to auscultation, no respiratory distress, no wheeze, no rhonchi. Gastrointestinal abdomen soft, non tender, bowel sounds audible, no guarding , no rigidity. Extremities no? edema. Neuro nonfocal Skin no rash Right hip dressing in place Objective Data Active Medications Acetaminophen (Acetaminophen 325 Mg Tablet) 650 mg PO TID [facility] Last Admin: 05/29/23 08:46 Dose: 650 mg Documented By: RASHEEDA Cyanocobalamin (Cyanocobalamin (Vitamin B-12) 1,000 Mcg Tablet) 1,000 mcg PO DAILY [facility] Last Admin: 05/29/23 08:46 Dose: 1,000 mcg Documented By: RASHEEDA Docusate Sodium (Docusate Sodium 100 Mg Capsule) 100 mg PO DAILY PRN PRN Reason: Constipation Enoxaparin Sodium (Enoxaparin Sodium 40 Mg/0.4 Ml Syringe) 40 mg SUBCUT Q24H [facility] Last Admin: 05/28/23 16:54 Dose: 40 mg Documented By: JOANNA Fentanyl (Fentanyl Citrate/Pf 100 Mcg/2 Ml Vial) 25 mcg IVPUSH Q5M PRN; Protocol PRN Reason: Pain, Moderate(Pain Scale 4-6) Levothyroxine Sodium (Levothyroxine Sodium 75 Mcg Tablet) 75 mcg PO DAILY@0600 [facility] Last Admin: 05/29/23 05:34 Dose: 75 mcg Documented By: JOSE Morphine Sulfate (Morphine Sulfate 4 Mg/Ml Cartridge) 4 mg IVPUSH Q4H PRN; Protocol PRN Reason: Pain, Moderate(Pain Scale 4-6) Last Admin: 05/28/23 09:00 Dose: 4 mg Documented By: RASHEEDA Carbidopa-Levodopa 23.75-95 Mg Capsule, Er 4 cap PO DAILY [facility] Last Admin: 05/29/23 08:46 Dose: 4 cap Documented By: RASHEEDA Pt Own (Selegiline (Hcl 5 Mg Tablet)) 5 mg PO BID [facility] Last Admin: 05/29/23 08:46 Dose: 5 mg Documented By: RASHEEDA Carbidopa-[id number] (.75-95 Mg Capsule,Er) 3 cap PO BID@1500,2100 [facility] Last Admin: 05/28/23 20:08 Dose: 3 cap Documented By: JOANNA Ondansetron HCl (Ondansetron Hcl 4 Mg/2 Ml Vial) 4 mg IVPUSH Q8H PRN PRN Reason: Nausea and Vomiting Ondansetron HCl (Ondansetron Hcl 4 Mg/2 Ml Vial) 4 mg IVPUSH ONCE PRN PRN Reason: Nausea and Vomiting Oxycodone HCl (Oxycodone Hcl Immed Release 5 Mg Tablet) 5 mg PO Q6H PRN PRN Reason: Pain, Moderate(Pain Scale 4-6) Last Admin: 05/28/23 19:09 Dose: 5 mg Documented By: JOANNA Sodium Chloride (0.9 % Sodium Chloride Flush 3 Ml Syringe) [facility] Last Admin: 05/29/23 08:47 Dose: 3 ml Documented By: RASHEEDA Vitamin D (Cholecalciferol (Vitamin D3) 25 Mcg Tablet) 50 mcg PO DAILY [facility] Last Admin: 05/29/23 08:46 Dose: 50 mcg Documented By: RASHEEDA Labs 05/29/23 05:28 05/28/23 05:30 Labs: Laboratory Results - last 24 hr 05/29/23 05:28 MCV 96.3 MCH 31.7 MCHC 32.9 RDW 13.5 Plt Count 122 L MPV 11.7 Absolute Nucleated RBC 0.000 Nucleated RBC % (auto) 0.0 Assessment and Plan (1) Fracture, intertrochanteric, right femur: Status: Acute (2) Parkinson's disease: Status: Acute Plan 82-year-old female past medical history of punctate since disease with gait instability comes into the hospital after having a mechanical fall found to have a right hip fracture #?Acute right hip fracture due to mechanical fall - postoperative day 2 status post IMN Good pain control, on Tylenol schedule t.i.d. and will add oxycodone 2.5 mg schedule t.i.d. continue IV morphine prn.. Follow CBC, cont. stool softeners Seen by PT they recommend acute rehab. # acute on chronic normocytic anemia likely multifactorial dilutional and due to acute blood loss s/p 1 unit of packed RBC , repeat hematocrit improved from 22.1 to 23.7 , patient asymptomatic follow CBC If noted to have any drop in hematocrit will transfuse [address] on iron supplement # mild hypotension soft blood pressures patient asymptomatic not on antihypertensive follow BP. #? Parkinson's disease -? continue home medications #? hypothyroidism -? continue levothyroxine, follow TSH DVT prophylaxis: Lovenox subQ ?given patient's recent hip surgery and now anemia, requiring close monitoring of CBC, will need continued inpatient hospitalization. Time Spent With Patient Time: Total time managing care of this patient today ____ minutes. Quality Stroke Does the patient have a stroke diagnosis?: No VTE Prior VTE?: No VTE Risk Level:: Surgical - very high VTE Device Contraindication: N/A - Device Ordered VTE Drug Contraindication: Treatment Not Indicated
[2023-05-29] MEDS: oxyCODONE HCl Immed Release 5 MG TABLET 2.5 MG PO ×2 (14:09→19:50)
--- NOTE | 2023-05-29 15:29 | PC.NURSE ---
H&H 7.8/23.7. Ortho and Dr. Julian aware. CBC ordered for AM. Upper right hip dressing changed by Ortho PA. Patient resistant to help with repositioning. Insists on turning herself in bed. Able to stand today with walker, but wasn't able to take any steps.
[2023-05-29] MEDS: Enoxaparin Sodium 40 MG/0.4 ML SYRINGE SUBCUT (16:48)
[2023-05-30] VITALS (9 sets, daily range): BP systolic 99–137; BP diastolic 53–63; PULSE 74–95; RESP 17–20; TEMP 36.2–36.8; O2SAT 93–98
[2023-05-30] MEDS: Levothyroxine Sodium 75 MCG TABLET PO (06:08)
[2023-05-30 07:10] LABS: Hematocrit 22.4 % (37.0-47.0); Hemoglobin 7.5 g/dl (12.0-16.0); Mean Corpuscular HGB Conc 33.5 g/dl (31.0-35.0); Mean Corpuscular Hemoglobin 32.3 pg (27.0-33.0); Mean Corpuscular Volume 96.6 fL (80.0-98.0); Mean Platelet Volume 11.6 fL (9.4-12.3); Platelet Count 125 X10*3/uL (160-400); Red Blood Count 2.32 X10*6/uL (4.20-5.50); Red Cell Distribution Width 13.8 % (11.0-16.0); White Blood Count 5.5 X10*3/uL (4.8-10.8)
--- NOTE | 2023-05-30 07:29 | PM.PNORT ---
Subjective Subjective Date of Service: 05/30/23 Interval history: POD3 s/p right hip IM Nail. No overnight events. Pain is well managed. No additional complaints. Physical Exam Vital Signs: Vital Signs: Last Vital Signs Temp 97.3 F 05/30/23 04:00 Pulse 74 05/30/23 04:00 Resp 18 05/30/23 04:00 BP 137/63 05/30/23 04:00 Pulse Ox 93 05/30/23 04:00 O2 Del Method Room Air 05/30/23 04:00 BMI result Body Mass Index 21.6 Const: General: cooperative, healthy appearing and no acute distress Resp: Effort & Inspection: normal respiratory effort and able to speak in complete sentences Cardio: Rate: regular rate Peripheral pulses: Peripheral pulses 2+ throughout GI: Palpation (GI): Soft to palpation Skin: Lesions: no lesions Rashes: no rashes Extrem: Other: Right hip dressings are c/d/i. Able to dorsi/plantar flex. NVI. Procedures Date of Service Date of Service: 05/30/23 Progress Note: A&P Assessment and plan (1) Closed hip fracture: Status: Acute Assessment and Plan: Continue pain mgmnt Continue Lovenox for dvt ppx Continue PT for rt hip IM Nail - WBAT Dispo planning-PT, pain mgmnt, Cleared from ortho perspective for d/c to rehab (2) Fracture, intertrochanteric, right femur: Status: Acute Time Spent With Patient Time: Total time managing care of this patient today ____ minutes. Quality Stroke Does the patient have a stroke diagnosis?: No VTE Prior VTE?: No VTE Risk Level:: Surgical - very high VTE Device Contraindication: N/A - Device Ordered VTE Drug Contraindication: Treatment Not Indicated
[2023-05-30 07:44] LABS: Thyroid Stimulating Hormone 5.06 uIU/mL (0.32-4.0)
[2023-05-30] MEDS: 0.9 % Sodium Chloride Flush 3 ML SYRINGE IVFLUSH ×2 (09:36→16:08)
[2023-05-30] MEDS: Cyanocobalamin (Vitamin B-12) 1,000 MCG TABLET 1000 MCG PO (09:37)
[2023-05-30] MEDS: Acetaminophen 325 MG TABLET 650 MG PO ×2 (09:37→20:11)
[2023-05-30] MEDS: Cholecalciferol (Vitamin D3) 25 MCG TABLET 50 MCG PO (09:38)
--- NOTE | 2023-05-30 10:41 | P.PNIM_ITS ---
Subjective Subjective Date of Service: 05/30/23 Interval History: pain controlled Hb 7.8->7.5 Review of Systems Review of Systems: Yes all other systems are reviewed and are negative Physical Exam Vital Signs: Vital Signs: Last Vital Signs Temp 97.2 F 05/30/23 07:55 Pulse 88 05/30/23 09:27 Resp 18 05/30/23 07:55 BP 116/56 L 05/30/23 09:27 Pulse Ox 97 05/30/23 09:27 O2 Del Method Room Air 05/30/23 07:55 BMI result Body Mass Index 21.6 Gen: in no acute distress HEENT: sclera anicteric, moist mucus membranes Neck: supple Lungs: clear to auscultation bilaterally Heart: regular rate and rhythm, no murmurs Abd: soft, non-tender, non-distended Ext: no edema, R hip dressing C/D/I Skin: warm/well-perfused Neuro: alert and oriented x3, no focal findings Psych: appropriate affect Objective Data Active Medications Acetaminophen (Acetaminophen 325 Mg Tablet) 650 mg PO TID [facility] Last Admin: 05/30/23 09:37 Dose: 650 mg Documented By: DEVYN Cyanocobalamin (Cyanocobalamin (Vitamin B-12) 1,000 Mcg Tablet) 1,000 mcg PO DAILY [facility] Last Admin: 05/30/23 09:37 Dose: 1,000 mcg Documented By: DEVYN Docusate Sodium (Docusate Sodium 100 Mg Capsule) 100 mg PO DAILY PRN PRN Reason: Constipation Enoxaparin Sodium (Enoxaparin Sodium 40 Mg/0.4 Ml Syringe) 40 mg SUBCUT Q24H [facility] Last Admin: 05/29/23 16:48 Dose: 40 mg Documented By: JOANNA Fentanyl (Fentanyl Citrate/Pf 100 Mcg/2 Ml Vial) 25 mcg IVPUSH Q5M PRN; Protocol PRN Reason: Pain, Moderate(Pain Scale 4-6) Levothyroxine Sodium (Levothyroxine Sodium 75 Mcg Tablet) 75 mcg PO DAILY@0600 [facility] Last Admin: 05/30/23 06:08 Dose: 75 mcg Documented By: BERNABE Morphine Sulfate (Morphine Sulfate 4 Mg/Ml Cartridge) 3 mg IVPUSH Q4H PRN; Protocol PRN Reason: Pain, Moderate(Pain Scale 4-6) Carbidopa-Levodopa 23.75-95 Mg Capsule, Er 4 cap PO DAILY [facility] Last Admin: 05/29/23 08:46 Dose: 4 cap Documented By: RASHEEDA Pt Own (Selegiline (Hcl 5 Mg Tablet)) 5 mg PO BID [facility] Last Admin: 05/30/23 09:38 Dose: 5 mg Documented By: DEVYN Carbidopa-[id number] (.75-95 Mg Capsule,Er) 3 cap PO BID@1500,2100 [facility] Last Admin: 05/29/23 19:51 Dose: 3 cap Documented By: JOANNA Ondansetron HCl (Ondansetron Hcl 4 Mg/2 Ml Vial) 4 mg IVPUSH Q8H PRN PRN Reason: Nausea and Vomiting Ondansetron HCl (Ondansetron Hcl 4 Mg/2 Ml Vial) 4 mg IVPUSH ONCE PRN PRN Reason: Nausea and Vomiting Oxycodone HCl (Oxycodone Hcl Immed Release 5 Mg Tablet) 2.5 mg PO TID [facility] Last Admin: 05/30/23 09:38 Dose: Not Given Documented By: DEVYN Non-Admin Reason: Patient Refused Sodium Chloride (0.9 % Sodium Chloride Flush 3 Ml Syringe) 3 ml IVFLUSH QSHIFT [facility] Last Admin: 05/30/23 09:36 Dose: 3 ml Documented By: DEVYN Vitamin D (Cholecalciferol (Vitamin D3) 25 Mcg Tablet) 50 mcg PO DAILY [facility] Last Admin: 05/30/23 09:38 Dose: 50 mcg Documented By: DEVYN Labs 05/30/23 05:51 05/28/23 05:30 Labs: Laboratory Results - last 24 hr 05/27/23 05/30/23 05/30/23 10:34 05:51 05:51 MCV 96.6 MCH 32.3 MCHC 33.5 RDW 13.8 Plt Count 125 L MPV 11.6 Absolute Nucleated RBC 0.000 Nucleated RBC % (auto) 0.0 TSH 5.06 H Blood Type O Positive Antibody Screen NEGATIVE Crossmatch See Detail Assessment and Plan (1) Fracture, intertrochanteric, right femur: Status: Acute (2) Parkinson's disease: Status: Acute Plan d5 82yo F with Parkinson disease with gait instability admitted for R hip fx after fall intertrochanteric fracture right femur? - POD3 IMN - PT - APAP, oxycodone - enoxaparin x28d postop anemia due to femur fx - txf 1 addl unit pRBCs [got 1u on 05/27], recheck H+H in AM, start iron Parkinson disease - continue carbidopa-levodopa, selegeline hypothyroidism - continue LT4 VTE ppx - LMWH dispo - plan AIR possibly tomorrow In my clinical judgment, the patient requires continued inpatient hospitalization for the following reasons: postop care, transfusino Time Spent With Patient Time: Total time managing care of this patient today _35___ minutes. Quality Stroke Does the patient have a stroke diagnosis?: No VTE Prior VTE?: No VTE Risk Level:: Surgical - very high VTE Device Contraindication: N/A - Device Ordered VTE Drug Contraindication: Treatment Not Indicated
[2023-05-30] MEDS: Ferrous Sulfate 324 MG TABLET.DR PO (12:32)
--- NOTE | 2023-05-30 13:13 | MHC.CM.PN ---
per rounds pt will be ready for dc tuesday [facility]
[2023-05-30] MEDS: Enoxaparin Sodium 40 MG/0.4 ML SYRINGE SUBCUT (15:13)
[2023-05-31] VITALS: BP 134/60; PULSE 88; RESP 18; TEMP 36.6; O2SAT 95
[2023-05-31] MEDS: Levothyroxine Sodium 75 MCG TABLET PO (05:48)
[2023-05-31 06:21] LABS: Hematocrit 27.7 % (37.0-47.0); Mean Corpuscular HGB Conc 32.5 g/dl (31.0-35.0); Mean Corpuscular Hemoglobin 31.8 pg (27.0-33.0); Mean Corpuscular Volume 97.9 fL (80.0-98.0); Mean Platelet Volume 11.5 fL (9.4-12.3); NRBC Pct Auto 0.4 /100WBC (0.0-0.2); Platelet Count 137 X10*3/uL (160-400); Red Blood Count 2.83 X10*6/uL (4.20-5.50); Red Cell Distribution Width 14.6 % (11.0-16.0); White Blood Count 7.8 X10*3/uL (4.8-10.8)
[2023-05-31 07:50] VITALS: BP 106/60; PULSE 88; RESP 18; TEMP 36.2; O2SAT 94
--- NOTE | 2023-05-31 08:57 | PM.DS ---
DS: Providers Provider Date of Service: 05/31/23 Date of admission: 05/26/23 21:50 Date of discharge: 05/31/23 Primary care physician: Omar Siu MD Consults: 05/26/23 21:50 Consult to Orthopedics Routine Consulting Provider: [facility] Reason for consultation: hip fracture Has provider been notified: Yes DS: Diagnosis Discharge Diagnosis (1) Fracture, intertrochanteric, right femur: Status: Acute (2) Parkinson's disease: Status: Acute (3) Anemia due to blood loss: Status: Acute DS: Summary Hospital Course Hospital Course: from admission H+P by hospitalist Nuris Hunt MD, 05/26/23: 82-year-old female past medical history of Parkinson's disease, hypothyroidism presents the hospital with complaints of a fall and hip pain.? Patient reports that she walked to the kitchen, lost her balance and had a fall.? She denies any loss of consciousness, no palpitations, no dizziness, no prodromal or postictal symptoms.? Once she fell she has significant right-sided pain including moving knew something was wrong.? Patient was brought into the hospital and found to have a right hip fracture. On arrival to the ED patient hemodynamically stable ?labs unremarkable ?case discussed with Orthopedic surgery, patient will be admitted and plan for surgery in a.m. 82yo F with Parkinson disease with gait instability admitted for R hip fx after fall. Found to have intertrochanteric fracture right femur?for which she underwent IMN on 05/27/23. She was transfused 1 unit of pRBCs on 05/27 and another unit of pRBCs on 05/30 for postoperative anemia with appropriate response. She was started on iron replacement. She was discharged to acute inpatient rehabilitation. She should continue prophylactic enoxaparin for 42 days postoperatively. She needs follow-up with [facility] in 2 weeks. Time Spent with Patient Time attestation: Total time managing care of this patient today ___35_ minutes. Discharge coordination time: Greater than 30 minutes Quality: Safe Use of Opioids Does Pt have an Active Cancer Diagnosis on the Problem List?: No Quality: Stroke Does the patient have a stroke diagnosis?: No Physical Exam Vital Signs: Vital Signs: Last Vital Signs Temp 97.2 F 05/31/23 07:50 Pulse 88 05/31/23 07:50 Resp 18 07/18/23 07:50 BP 106/60 05/31/23 07:50 Pulse Ox 94 05/31/23 07:50 O2 Del Method Room Air 05/31/23 07:50 Oxygen Flow Rate 96 05/30/23 15:49 BMI result Body Mass Index 21.6 Gen: in no acute distress HEENT: sclera anicteric, moist mucus membranes Neck: supple Lungs: clear to auscultation bilaterally Heart: regular rate and rhythm, no murmurs Abd: soft, non-tender, non-distended Ext: no edema, R hip bandage dry Skin: warm/well-perfused Neuro: alert and oriented x3, no focal findings Psych: appropriate affect DS: Data Data Completed and Pending Completed studies during hospitalization [Text1]: Laboratory Results WBC 7.8 X10*3/uL (4.8-10.8) 05/31/23 05:48 RBC 2.83 X10*6/uL (4.20-5.50) L D 05/31/23 05:48 Hgb 9.0 g/dl (12.0-16.0) L 05/31/23 05:48 Hct 27.7 % (37.0-47.0) L D 05/31/23 05:48 MCV 97.9 fL (80.0-98.0) 05/31/23 05:48 MCH 31.8 pg (27.0-33.0) 05/31/23 05:48 MCHC 32.5 g/dl (31.0-35.0) 05/31/23 05:48 RDW 14.6 % (11.0-16.0) 05/31/23 05:48 Plt Count 137 X10*3/uL (160-400) L 05/31/23 05:48 MPV 11.5 fL (9.4-12.3) 05/31/23 05:48 Immature Gran % (Auto) 0.5 % (0.0-0.4) H 05/27/23 05:53 Neut % (Auto) 66.4 % (45-73) 05/27/23 05:53 Lymph % (Auto) 20.6 % (20-40) 05/27/23 05:53 Morrison % (Auto) 9.2 % (2-11) 05/27/23 05:53 Eos % (Auto) 2.8 % (0-4) 05/27/23 05:53 Baso % (Auto) 0.5 % (0-2) 05/27/23 05:53 Lymph # (Auto) 1.3 X10*3/uL (1.2-4.9) 05/27/23 05:53 Morrison # (Auto) 0.6 X10*3/uL (0.1-1.2) 05/27/23 05:53 Eos # (Auto) 0.2 X10*3/uL (0.0-0.4) 05/27/23 05:53 Baso # (Auto) 0.0 X10*3/uL (0.0-0.2) 05/27/23 05:53 Abs Immat Gran (auto) 0.03 X10*3/uL (0.00-0.03) 05/27/23 05:53 Absolute Neuts (auto) 4.2 x10*3/uL (2.0-8.3) 05/27/23 05:53 Absolute Nucleated RBC 0.030 X10*3/uL (0.0-0.012) H 05/31/23 05:48 Nucleated RBC % (auto) 0.4 /100WBC (0.0-0.2) H 05/31/23 05:48 Sodium 141 mmol/L (135-145) 05/28/23 05:30 Potassium 4.2 mmol/L (3.3-5.1) 05/28/23 05:30 Chloride 115 mmol/L (96-108) H 05/28/23 05:30 Carbon Dioxide 22 mmol/L (22-29) 05/28/23 05:30 Anion Gap 8 (12-20) L 05/28/23 05:30 BUN 13 mg/dL (9-16) 05/28/23 05:30 Creatinine 0.64 mg/dL (0.5-1.4) 05/28/23 05:30 Estim Creat Clear Calc 56.0 05/28/23 05:30 Estimated GFR > 60 05/28/23 05:30 Random Glucose 92 mg/dL (60-115) 05/28/23 05:30 Lactic Acid 0.8 mmol/L (0.5-2.0) 05/28/23 05:30 Calcium 8.1 mg/dL (8.4-10.2) L D 05/28/23 05:30 Total Bilirubin 0.5 mg/dL (0.0-1.0) 05/26/23 20:29 AST 17 U/L (5-31) 05/26/23 20:29 ALT < 5 U/L (0-31) 05/26/23 20:29 Alkaline Phosphatase 63 U/L (39-117) 05/26/23 20:29 Total Protein 6.5 g/dL (6.5-8.0) 05/26/23 20: Albumin 4.1 g/dL (3.5-5.0) 05/26/23 20: TSH 5.06 uIU/mL (0.32-4.0) H 05/30/23 05:51 Blood Type O Positive 05/27/23 10:34 Antibody Screen NEGATIVE 05/27/23 10:34 Crossmatch See Detail 05/27/23 10:34 Impressions Hip/Pelvis X-Ray 05/26/23 21:04 IMPRESSION: 1. Intertrochanteric fracture right femur with no dislocation. There is diffuse osteopenia. 2. There is intramedullary femoral lilian and nail for an old healed fracture left femur. 3. The lungs are well-expanded and clear of acute process. Chest X-Ray 05/26/23 21:05 IMPRESSION: 1. Intertrochanteric fracture right femur with no dislocation. There is diffuse osteopenia. 2. There is intramedullary femoral lilian and nail for an old healed fracture left femur. 3. The lungs are well-expanded and clear of acute process. Guidance Fluoroscopy 05/27/23 17:15 IMPRESSION: Fluoroscopy guidance for ORIF of right femoral intertrochanteric fracture. Discharge Plan Discharge Anticipated Discharge Date/Time: 05/31/23 11:54 Patient Disposition: Xfer Inpatient Rehab Fac Discharge Diagnosis: R femur intertrochanteric fracture postoperative anemia Referrals: Omar Siu MD [Primary Care Provider] - 1 Week Fermin Rodriguez PA-C [Physician Arm Rest Builder] - 2 Weeks (06/10/23 11:30 [facility] Meuse,Ta-Layne, PA-C) Discharge Medications: New enoxaparin 40 mg/0.4 mL Syringe 40 mg subcut Q24H Qty: 30 0RF ferrous sulfate 324 mg (65 mg iron) Tablet,Delayed Release (Dr/Ec) 324 mg PO DAILY Qty: 30 0RF oxycodone 5 mg Tablet 2.5 mg PO TID PRN (Reason: mod-sev pain) Qty: 6 0RF Rx Instructions: Partial Fill upon patient request. Continued selegiline HCl 5 mg tablet 5 mg PO BID 30 Days Qty: 60 6RF Rytary 23.75-95 mg capsule, extended release 3 cap PO BID@1500,2100 Rytary 23.75-95 mg capsule, extended release 4 cap PO DAILY cholecalciferol (vitamin D3) 50 mcg (2,000 unit) capsule 50 mcg PO DAILY levothyroxine 75 mcg tablet 75 mcg PO DAILY@0600 mecobalamin (vitamin B12) 1,000 mcg tablet,chewable 1,000 mcg PO DAILY Discharge Orders: Discharge Order (Routine); Ordered 05/31/23 Ordered By: Riley Campos Diet: Regular diet Activity on Discharge: Use cane or walker Stand Alone Forms: Patient Portal Discharge page Care Plan Goals: recovery from hip fracture Health Concerns: R femur intertrochanteric fracture postoperative anemia Plan of Treatment: Gait training, strengthening, ADLs Continue lovenox x 6 weeks Keep dressing clean,dry and intact-no showering or tub baths Follow up with Orthopedics in 2 weeks Transfer to acute inpatient rehab Take iron as prescribed Oxycodone as needed for severe pain; otherwise, acetaminophen for mild-moderate pain Assessment: See Discharge Summary.
--- NOTE | 2023-05-31 09:09 | MHC.CM.PN ---
DP: PT HAS BEEN MEDICALLY CLEARED FOR DC TO [place] AT [facility]. RN AWARE. SPOUSE NOTIFIED. BLS TRANSPORT BOOKED FOR 1 PM VIA [employer].
[2023-05-31] MEDS: Acetaminophen 325 MG TABLET 650 MG PO (09:22)
[2023-05-31] MEDS: Cholecalciferol (Vitamin D3) 25 MCG TABLET 50 MCG PO (09:22)
[2023-05-31] MEDS: Cyanocobalamin (Vitamin B-12) 1,000 MCG TABLET 1000 MCG PO (09:22)
[2023-05-31] MEDS: Ferrous Sulfate 324 MG TABLET.DR PO (09:22)
[2023-05-31] MEDS: 0.9 % Sodium Chloride Flush 3 ML SYRINGE IVFLUSH (09:27)
--- NOTE | 2023-06-15 13:15 | W.PM.OPN ---
Operative Note Operative Note Date of Service: 05/27/23 Narrative: Date of Service: 05/27/23 Pre-op diagnosis: Right hip fracture Post-op diagnosis: same Procedure: Right hip IMN Implants: Aubrey [id number] 125 deg with 95 mm hip screw Surgeon: Ben Giraldo MD Anesthesia: GETA and local Was an Sign Language Teacher used for this Procedure?: No Estimated blood loss (mL): 200 IV fluids (mL): 800 Pathology: none sent Condition: stable Disposition: PACU Procedure in detail: Patient was brought to the operating room and prepped and draped in standard sterile fashion. Time-out was called to identify proper site procedure proper surgeon and IV antibiotics per weight were administered. She was positioned on the fracture table and a traction and slight internal rotation were performed and biplanar fluoroscopy confirmed initial fracture reduction. I then made a stab incision proximal to the greater trochanter in using a guidewire made a entry point just lateral to the tip of the greater trochanter and placed a guidewire into the femoral metadiaphysis. I then over-reamed with 15 mm Reamer placed my ball-tip guidewire down distally in the femur and measured my length. I selected a [id number] 125 deg with 95 mm hip screw nail and reamed up to a 13. I then placed the nail. I then turned my attention to the hip screw where I used a guidewire and a tip apex distance of less than 1.5 measured my hip screw. I then pre drilled and placed a 95mm hip screw using biplanar fluoroscopy. Once I was satisdfied with the position of the hip screw I turned my attention to the distal aspect of the nail. The nail was central in the canal and no distal screw was placed. I then removed all I then placed my set screw proximally and removed all extraneous instrumentation. Final biplanar radiographs were taken. I was satisfied with the position of the hardware and the fracture reduction. I think copiously irrigated closed with absorbable sutures shantelle and injected 30 mL of into the area of the incisions. Traction was let down patient was placed in sterile dressing awakened from anesthesia brought to recovery room stable condition there were no known complications.
== END 2023-05-31 13:04 | DRG 481 ==
LOC: HO.ED 21:08 → HO.EDOVER 22:06 → HO.S3 22:47
PROVIDERS: Hospitalist; Orthopaedic Surgery; Admitting Provider Internal Medicine; Emergency Provider Emergency Medicine; PCP Family Medicine; Visit Provider Family Medicine
PROC: 0QS636Z Reposition Right Upper Femur with Intramedullary Internal Fixation Device, Percutaneous Approach (ICD-10-PCS; principal; 2023-05-27 13:30)
DX: S72.141A Displaced intertrochanteric fracture of right femur, initial encounter for closed fracture (principal); D62 Acute posthemorrhagic anemia; E03.9 Hypothyroidism, unspecified; W19.XXXA Unspecified fall, initial encounter; G20 Parkinson's disease; I95.2 Hypotension due to drugs; T39.95XA Adverse effect of unspecified nonopioid analgesic, antipyretic and antirheumatic, initial encounter; F17.210 Nicotine dependence, cigarettes, uncomplicated; Z71.6 Tobacco abuse counseling; Z79.890 Hormone replacement therapy; Z79.899 Other long term (current) drug therapy
CPT/HCPCS: 36415; 71045; 73502; 80048; 80053; 83605; 84443; 85025; 85027; 86850; 86900; 86901; 86923; 93005; 97162; 97166; 99285; C1713; C1769; J0690; J1650; J2250; J2270; J2405; J2795; J3010; P9016

== ENCOUNTER → 2023-05-26 21:08 | Outpatient (BNV) | payer MEDICARE, OTHER, SELFPAY | PROVIDERS: Admitting Provider Internal Medicine; Emergency Provider Emergency Medicine; Visit Provider Internal Medicine Cardiovascular Disease | DX: I44.0 Atrioventricular block, first degree (principal); R94.31 Abnormal electrocardiogram [ECG] [EKG] | CPT/HCPCS: 93010 ==

== ENCOUNTER → 2023-05-26 21:50 | Outpatient (BNV) | payer MEDICARE, OTHER, SELFPAY | PROVIDERS: Admitting Provider Internal Medicine; Emergency Provider Emergency Medicine; Visit Provider Physician Assistant | DX: S72.141A Displaced intertrochanteric fracture of right femur, initial encounter for closed fracture (principal) | CPT/HCPCS: 27245; 99231; 99232 ==

== ENCOUNTER → 2023-05-26 21:50 | Outpatient (BNV) | payer MEDICARE, OTHER, SELFPAY | PROVIDERS: Admitting Provider Internal Medicine; Emergency Provider Emergency Medicine; Visit Provider Internal Medicine | DX: S72.141A Displaced intertrochanteric fracture of right femur, initial encounter for closed fracture (principal); G20 Parkinson's disease | CPT/HCPCS: 99223; 99232; 99233; 99239; 99499 ==

== ENCOUNTER 2023-06-10 09:48 | Outpatient (REF) | payer MEDICARE, OTHER, SELFPAY | END 2023-06-10 09:49 | disposition home or self-care (01) | LOC: HO.HOSX 09:48 | PROVIDERS: Visit Provider Physician Assistant | DX: Z13.89 Encounter for screening for other disorder (principal) ==

== ENCOUNTER 2023-06-11 08:41 | Outpatient (REF) | payer MEDICARE, OTHER, SELFPAY | END 2023-06-11 08:42 | disposition home or self-care (01) | LOC: HO.HOSX 08:41 | PROVIDERS: Visit Provider Physician Assistant | DX: Z13.89 Encounter for screening for other disorder (principal) ==

== ENCOUNTER 2023-06-22 09:12 | Outpatient (AMB) | payer MEDICARE, OTHER, SELFPAY ==
--- NOTE | 2023-06-22 09:33 | MHC.OFFVIS ---
Intake Intake Visit Reasons: PO-Femoral I-M Nailing 05/27/23 NE Intake Note: Suzan an 82 year old female who presents today on a stretcher with her spouse for a post operative right hip IMN, 05/27/23 NE. Patient states she is in a rehab and just started getting her to stand but will have discomfort with standing. Allergies alendronate sodium [From Fosamax] Adverse Reaction (Unknown, Verified 06/22/23 09:54) Unknown HPI PO-Femoral I-M Nailing 05/27/23 NE HPI Details 82-year-old female who returns to the office today in a stretcher with her for post-op right hip IM nailing, 05/27/[address] Giraldo. Her states she is in a rehab and is currently able to stand but she does c/o experiencing discomfort with standing. She is doing well otherwise and has no concerns today. [facility] Medical History Hypothyroidism Parkinson's disease Surgical History History of hand surgery History of total hip replacement Hx of colonoscopy Social History Household Members: Spouse Housing: House Do you presently have visiting nurse or other home services: No Alcohol intake: current Alcohol intake frequency: holidays/special occasions only Alcohol type: hard liquor Patient Tobacco Use Status: Current everyday Tobacco user Tobacco use type: Cigarette Cigarettes Per Day: 4 Years Smoked: 35 Second Hand Smoke Exposure: Yes service: No Current occupational status: retired and disabled 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 No pain with log roll. NVI Results Reviewed Results Reviewed: X-rays of the right hip obtained in the office today show intact hardware. Fracture pattern is stable. Assessment & Plan Assessment & Plan (1) Fracture, intertrochanteric, right femur: Code(s): S72.141A - Displaced intertrochanteric fracture of right femur, initial encounter for closed fracture Plan She will continue to work with physical therapy and occupational therapy. She is weight bearing as tolerated and she will increase activity as tolerated. I did explain to her that the projection of her healing is usually the first 6-8 weeks of obtaining stability of the fracture. This could overall take 6 months or so for her to be able to fully stand and put weight through this and it is also her Parkinsons and dementia that may play a role in her inability to fully function and move forward. He does understand all this and will follow-up as planned. Orders: Orders XR hip RT w PEL1V Today M25.559 - Pain in unspecified hip XR knee RT 2V Today M25.569 - Pain in unspecified knee Medications: Discontinued carbidopa-levodopa 23.75-95 mg ER 4 caps in am and 3 caps bid orally 3 times a day; divide evenly over waking hours 30 days 300 caps 6RF Patient Instructions: Scribed for Fermin Rodriguez PA-C, by José Miguel Mena medical technologist clinical, on 06/22/2023 at 9:15 AM EST. I, Fermin Rodriguez PA-C, have personally reviewed and agree with the information entered by the scribe. Coding Level of Care Code Global (06139) Diagnoses Fracture, intertrochanteric, right femur S72.141A
== END 2023-06-22 10:38 | disposition home or self-care (01) ==
PROVIDERS: PCP Family Medicine; Visit Provider Physician Assistant
DX: S72.141A Displaced intertrochanteric fracture of right femur, initial encounter for closed fracture (principal)
CPT/HCPCS: 99024

== ENCOUNTER 2023-06-22 09:12 | Outpatient (REF) | payer MEDICARE, OTHER, SELFPAY ==
--- NOTE | ~2023-06-22 | XR_ITS ---
EXAMINATION: XR KNEE, RIGHT CLINICAL INFORMATION: Pain COMPARISON: None available. TECHNIQUE: Two views of the right knee. FINDINGS: There is loss of tricompartment joint space without bony erosive changes or osteophytes. No joint effusion seen or suspected. There is mild osteopenia. There is intramedullary femoral lilian terminating in distal femur. XR/XR knee RT 2V IMPRESSION: 1. Mild degenerative changes right knee. No visible acute fracture or dislocation seen. 2. There is intramedullary femoral lilian terminating in distal femur. 3. Diffuse osteopenia
== END 2023-06-22 09:13 | disposition home or self-care (01) ==
LOC: HO.HOSX 09:12
PROVIDERS: PCP Family Medicine; Visit Provider Physician Assistant
DX: S72.141D Displaced intertrochanteric fracture of right femur, subsequent encounter for closed fracture with routine healing (principal)
CPT/HCPCS: 73502; 73560

== ENCOUNTER 2023-06-27 06:14 | Outpatient (REF) | payer SELFPAY ==
--- NOTE | ~2023-06-27 | XR_ITS ---
EXAMINATION: XR HIP, RIGHT CLINICAL INFORMATION: Right hip pain. COMPARISON: Right hip radiographs dated 05/26/2023. TECHNIQUE: Two views of the right hip. FINDINGS: The patient is status post bilateral hip/femoral ORIF showing good anatomic alignment and no evidence for hardware malfunction. Generalized osteopenia. Minimal bilateral hip degenerative joint changes are seen. The soft tissues are unremarkable. XR/XR hip RT w PEL1V IMPRESSION: 1. Generalized osteopenia. No hardware abnormality. No acute fracture. 2. Minimal bilateral hip degenerative joint changes suggesting osteoarthritis.
[2023-06-27 06:03] LABS: MANUAL DIFF FLAG NO
[2023-06-27 06:47] LABS: Basophils Percent Auto 0.7 % (0-2); Eosinophils Absolute Auto 0.3 X10*3/uL (0.0-0.4); Eosinophils Percent Auto 4.5 % (0-4); Hematocrit 33.4 % (37.0-47.0); Hemoglobin 10.4 g/dl (12.0-16.0); Imm Gran Abs Auto 0.02 X10*3/uL (0.00-0.03); Imm Gran Pct Auto 0.4 % (0.0-0.4); Lymphocytes Absolute Auto 1.4 X10*3/uL (1.2-4.9); Lymphocytes Percent Auto 25.1 % (20-40); Mean Corpuscular HGB Conc 31.1 g/dl (31.0-35.0); Mean Corpuscular Hemoglobin 32.6 pg (27.0-33.0); Mean Corpuscular Volume 104.7 fL (80.0-98.0); Mean Platelet Volume 11.5 fL (9.4-12.3); Monocytes Absolute Auto 0.6 X10*3/uL (0.1-1.2); Monocytes Percent Auto 11.2 % (2-11); Neutrophils Absolute Auto 3.2 x10*3/uL (2.0-8.3); Neutrophils Percent Auto 58.1 % (45-73); Platelet Count 179 X10*3/uL (160-400); Red Blood Count 3.19 X10*6/uL (4.20-5.50); White Blood Count 5.5 X10*3/uL (4.8-10.8)
[2023-06-27 11:14] LABS: Alanine Aminotransferase 9 U/L (0-31); Albumin Level 3.6 g/dL (3.5-5.0); Alkaline Phosphatase 289 U/L (39-117); Anion Gap 12 (12-20); Aspartate Amino Transferase 20 U/L (5-31); Bilirubin Total 0.7 mg/dL (0.0-1.0); Blood Urea Nitrogen 18 mg/dL (9-16); Calcium 8.9 mg/dL (8.4-10.2); Carbon Dioxide 21 mmol/L (22-29); Chloride 117 mmol/L (96-108); Estimated Glomerular Filt Rate > 60; Glucose Random 72 mg/dL (60-115); Potassium 3.8 mmol/L (3.3-5.1); Sodium 146 mmol/L (135-145); Total Protein 5.4 g/dL (6.5-8.0)
== END 2023-06-27 06:15 | disposition home or self-care (01) ==
LOC: HO.MMNH1L 06:14
PROVIDERS: Visit Provider Family Medicine
DX: I10 Essential (primary) hypertension (principal); M25.551 Pain in right hip
CPT/HCPCS: 36415; 73502; 80053; 85025

== ENCOUNTER 2023-07-04 06:15 | Outpatient (REF) | payer SELFPAY ==
[2023-07-04 05:55] LABS: MANUAL DIFF FLAG NO
[2023-07-04 07:07] LABS: Alanine Aminotransferase 7 U/L (0-31); Albumin Level 3.5 g/dL (3.5-5.0); Alkaline Phosphatase 228 U/L (39-117); Anion Gap 11 (12-20); Aspartate Amino Transferase 16 U/L (5-31); Bilirubin Total 0.6 mg/dL (0.0-1.0); Blood Urea Nitrogen 22 mg/dL (9-16); Calcium 9.2 mg/dL (8.4-10.2); Carbon Dioxide 23 mmol/L (22-29); Chloride 112 mmol/L (96-108); Estimated Glomerular Filt Rate > 60; Glucose Random 77 mg/dL (60-115); Potassium 3.8 mmol/L (3.3-5.1); Sodium 142 mmol/L (135-145); Total Protein 5.4 g/dL (6.5-8.0)
[2023-07-04 07:08] LABS: Basophils Percent Auto 0.5 % (0-2); Eosinophils Absolute Auto 0.3 X10*3/uL (0.0-0.4); Eosinophils Percent Auto 4.1 % (0-4); Hematocrit 32.8 % (37.0-47.0); Hemoglobin 10.7 g/dl (12.0-16.0); Imm Gran Abs Auto 0.05 X10*3/uL (0.00-0.03); Imm Gran Pct Auto 0.8 % (0.0-0.4); Lymphocytes Absolute Auto 1.2 X10*3/uL (1.2-4.9); Lymphocytes Percent Auto 18.8 % (20-40); Mean Corpuscular HGB Conc 32.6 g/dl (31.0-35.0); Mean Corpuscular Hemoglobin 33.2 pg (27.0-33.0); Mean Corpuscular Volume 101.9 fL (80.0-98.0); Mean Platelet Volume 11.6 fL (9.4-12.3); Monocytes Absolute Auto 0.7 X10*3/uL (0.1-1.2); Monocytes Percent Auto 10.8 % (2-11); Platelet Count 190 X10*3/uL (160-400); Red Blood Count 3.22 X10*6/uL (4.20-5.50); Red Cell Distribution Width 14.3 % (11.0-16.0); White Blood Count 6.1 X10*3/uL (4.8-10.8)
== END 2023-07-04 06:16 | disposition home or self-care (01) ==
LOC: HO.MMNH1L 06:15
PROVIDERS: Visit Provider Family Medicine
DX: I10 Essential (primary) hypertension (principal)
CPT/HCPCS: 36415; 80053; 85025

== ENCOUNTER 2023-07-11 06:16 | Outpatient (REF) | payer SELFPAY ==
[2023-07-11 06:02] LABS: MANUAL DIFF FLAG NO
[2023-07-11 06:59] LABS: Anion Gap 11 (12-20); Basophils Percent Auto 0.6 % (0-2); Blood Urea Nitrogen 17 mg/dL (9-16); Calcium 8.9 mg/dL (8.4-10.2); Carbon Dioxide 22 mmol/L (22-29); Chloride 114 mmol/L (96-108); Eosinophils Absolute Auto 0.3 X10*3/uL (0.0-0.4); Eosinophils Percent Auto 4.4 % (0-4); Estimated Glomerular Filt Rate > 60; Glucose Random 74 mg/dL (60-115); Hematocrit 32.8 % (37.0-47.0); Hemoglobin 10.6 g/dl (12.0-16.0); Imm Gran Abs Auto 0.08 X10*3/uL (0.00-0.03); Imm Gran Pct Auto 1.2 % (0.0-0.4); Lymphocytes Absolute Auto 1.2 X10*3/uL (1.2-4.9); Lymphocytes Percent Auto 17.7 % (20-40); Mean Corpuscular HGB Conc 32.3 g/dl (31.0-35.0); Mean Corpuscular Hemoglobin 33.5 pg (27.0-33.0); Mean Corpuscular Volume 103.8 fL (80.0-98.0); Mean Platelet Volume 11.2 fL (9.4-12.3); Monocytes Absolute Auto 0.7 X10*3/uL (0.1-1.2); Monocytes Percent Auto 10.9 % (2-11); Neutrophils Absolute Auto 4.3 x10*3/uL (2.0-8.3); Neutrophils Percent Auto 65.2 % (45-73); Platelet Count 201 X10*3/uL (160-400); Potassium 3.7 mmol/L (3.3-5.1); Red Blood Count 3.16 X10*6/uL (4.20-5.50); Red Cell Distribution Width 14.1 % (11.0-16.0); Sodium 143 mmol/L (135-145); White Blood Count 6.6 X10*3/uL (4.8-10.8)
== END 2023-07-11 06:17 | disposition home or self-care (01) ==
LOC: HO.MMNH1L 06:16
PROVIDERS: Visit Provider Family Medicine
DX: I10 Essential (primary) hypertension (principal)
CPT/HCPCS: 36415; 80048; 85025

== ENCOUNTER 2023-07-19 06:35 | Outpatient (REF) | payer SELFPAY ==
[2023-07-19 06:31] LABS: MANUAL DIFF FLAG NO
[2023-07-19 07:31] LABS: Basophils Percent Auto 0.4 % (0-2); Eosinophils Absolute Auto 0.3 X10*3/uL (0.0-0.4); Eosinophils Percent Auto 3.9 % (0-4); Hemoglobin 10.4 g/dl (12.0-16.0); Imm Gran Abs Auto 0.02 X10*3/uL (0.00-0.03); Imm Gran Pct Auto 0.3 % (0.0-0.4); Lymphocytes Absolute Auto 1.8 X10*3/uL (1.2-4.9); Lymphocytes Percent Auto 23.9 % (20-40); Mean Corpuscular HGB Conc 31.5 g/dl (31.0-35.0); Mean Corpuscular Hemoglobin 32.8 pg (27.0-33.0); Mean Corpuscular Volume 104.1 fL (80.0-98.0); Mean Platelet Volume 11.5 fL (9.4-12.3); Monocytes Absolute Auto 0.5 X10*3/uL (0.1-1.2); Monocytes Percent Auto 7.3 % (2-11); Neutrophils Absolute Auto 4.7 x10*3/uL (2.0-8.3); Neutrophils Percent Auto 64.2 % (45-73); Platelet Count 223 X10*3/uL (160-400); Red Blood Count 3.17 X10*6/uL (4.20-5.50); Red Cell Distribution Width 13.7 % (11.0-16.0); White Blood Count 7.4 X10*3/uL (4.8-10.8)
[2023-07-19 07:47] LABS: Alanine Aminotransferase 8 U/L (0-31); Albumin Level 3.6 g/dL (3.5-5.0); Alkaline Phosphatase 168 U/L (39-117); Anion Gap 11 (12-20); Aspartate Amino Transferase 12 U/L (5-31); Bilirubin Total 0.4 mg/dL (0.0-1.0); Blood Urea Nitrogen 16 mg/dL (9-16); Calcium 8.9 mg/dL (8.4-10.2); Carbon Dioxide 24 mmol/L (22-29); Chloride 111 mmol/L (96-108); Estimated Glomerular Filt Rate > 60; Glucose Random 64 mg/dL (60-115); Potassium 3.8 mmol/L (3.3-5.1); Sodium 142 mmol/L (135-145); Total Protein 5.3 g/dL (6.5-8.0)
== END 2023-07-19 06:36 | disposition home or self-care (01) ==
LOC: HO.MMNH1L 06:35
PROVIDERS: Visit Provider Family Medicine
DX: I10 Essential (primary) hypertension (principal)
CPT/HCPCS: 36415; 80053; 85025

== ENCOUNTER 2023-07-22 20:35 | Inpatient (IN) | payer MEDICARE, OTHER, SELFPAY ==
--- NOTE | ~2023-07-22 | XR_ITS ---
EXAMINATION: XR RIGHT FEMUR XR PELVIS CLINICAL INFORMATION: Fall. Pain. COMPARISON: 06/22/2023 TECHNIQUE: AP view of the pelvis and AP and lateral views of the right femur were obtained. FINDINGS: Again seen are postsurgical changes of prior intramedullary nail and femoral neck screw fixation of the right intertrochanteric femoral fracture. Similar to prior study, there has been progressive formation of periosteal bone at the intertrochanteric fracture sites with minimal change in alignment. This healing appears partial. Bones remain osteopenic. No appreciable cut out or cut through. There is a new spiral fracture of the right distal femoral diaphysis at the junction of the middle and distal thirds with slight anteromedial displacement of the distal fracture fragment by approximately 3 mm. Of note, there is not a distal interlocking screw at the intramedullary nail and the nail extends approximately 8.5 cm distal to the fracture line. Bones are osteopenic. Soft tissues are swollen around the right femur. Calcific atherosclerosis is present in the femoral artery. The left proximal femur is status post prior intramedullary nail fixation with a remote, healed intertrochanteric fracture. Bones are osteopenic. Hip joints appear relatively well-preserved. Mild osteoarthritis is present in the SI joints. No acute fractures are identified in the pelvis, though sensitivity is limited by the degree of osteopenia. 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 Degenerative spondylosis is noted in the lower lumbar spine. XR/XR femur RT 2V IMPRESSION: 1. New spiral fracture of the right distal femoral diaphysis at the junction of the middle and distal thirds with slight anteromedial displacement of the distal fracture fragment. Of note, this occurs around the intramedullary nail. 2. Early changes of healing of the right intertrochanteric femoral fracture status post intramedullary nail fixation. 3. No appreciable acute fracture or malalignment in the pelvis. Bones are osteopenic. 4. Degenerative spondylosis in the lower lumbar spine.
--- NOTE | ~2023-07-22 | FL_ITS ---
EXAMINATION: XR FLUOROSCOPY WITH IMAGES CLINICAL INFORMATION: Distal femur locking screw placement. COMPARISON: None available. TECHNIQUE: Fluoroscopy Supervised By: Drs. Ben Giraldo and Omar Siu Fluoroscopy Time: 0.6 minutes. Cumulative Dose: 2.43 mGy. DAP: 0.04 Gycm2. Images: 2. FINDINGS: Images demonstrate distal aspect of intramedullary lilian with [address]. Vascular calcifications noted. FL/FL guidance in OR IMPRESSION: Intraoperative fluoroscopy during distal femoral locking screw placement.
[2023-07-22 20:44] VITALS: BP 130/66; BP 139/68; PULSE 95; PULSE 98; RESP 96; TEMP 36.8; O2SAT 99; BMI 20.9
[2023-07-22 21:09] LABS: MANUAL DIFF FLAG NO
[2023-07-22 21:10] LABS: Mean Corpuscular Volume 101.5 fL (80.0-98.0); PLT CLUMP 1; Red Cell Distribution Width 13.3 % (11.0-16.0); SCAN SMEAR FLAG 1
[2023-07-22 21:12] LABS: Basophils Absolute Auto 0.1 X10*3/uL (0.0-0.2); Basophils Percent Auto 0.9 % (0-2); Eosinophils Absolute Auto 0.3 X10*3/uL (0.0-0.4); Eosinophils Percent Auto 4.4 % (0-4); Hematocrit 34.7 % (37.0-47.0); Hemoglobin 11.2 g/dl (12.0-16.0); Imm Gran Abs Auto 0.01 X10*3/uL (0.00-0.03); Imm Gran Pct Auto 0.2 % (0.0-0.4); Lymphocytes Absolute Auto 1.1 X10*3/uL (1.2-4.9); Lymphocytes Percent Auto 19.8 % (20-40); Mean Corpuscular HGB Conc 32.3 g/dl (31.0-35.0); Mean Corpuscular Hemoglobin 32.7 pg (27.0-33.0); Monocytes Absolute Auto 0.5 X10*3/uL (0.1-1.2); Monocytes Percent Auto 8.5 % (2-11); Neutrophils Absolute Auto 3.7 x10*3/uL (2.0-8.3); Neutrophils Percent Auto 66.2 % (45-73); Red Blood Count 3.42 X10*6/uL (4.20-5.50)
[2023-07-22 21:26] LABS: Alanine Aminotransferase < 5 U/L (0-31); Albumin Level 3.9 g/dL (3.5-5.0); Alkaline Phosphatase 176 U/L (39-117); Anion Gap 12 (12-20); Aspartate Amino Transferase 14 U/L (5-31); Bilirubin Total 0.3 mg/dL (0.0-1.0); Blood Urea Nitrogen 20 mg/dL (9-16); Calcium 9.3 mg/dL (8.4-10.2); Carbon Dioxide 23 mmol/L (22-29); Chloride 111 mmol/L (96-108); Creatinine Clr Calc Pharmacy 43.5; Estimated Glomerular Filt Rate > 60; Glucose Random 105 mg/dL (60-115); Potassium 4.4 mmol/L (3.3-5.1); Sodium 142 mmol/L (135-145)
[2023-07-22 21:33] LABS: Platelet Count 170 X10*3/uL (160-400); White Blood Count 5.7 X10*3/uL (4.8-10.8)
--- NOTE | 2023-07-22 22:12 | ED.FALL ---
HPI - Fall General Chief Complaint: Fall Stated Complaint: fall Time Seen by Provider: 07/22/23 22:10 Source: patient, family and old records reviewed Mode of arrival: EMS Limitations: no limitations History of Present Illness HPI Narrative: 83 yo female not on thinners hx of parkinson's who just got out of rehab s/p IMN of R femur this May for fall here after her leg gave out while walking at home and her R leg twisted her did try to catch her but her leg got caught. no other injuries no headstrike. She has rotated R leg complaint: fall Onset (ago): minute(s) (just prior to arrival ) Fall from: standing Fall witnessed: yes, by family Place fall occurred: home Loss of consciousness: none Prolonged down time: no Symptoms prior to fall: none Context: history of frequent falls Location of injury - extremities: right: thigh Severity: mild Quality: dull and aching Associated symptoms (after fall): unable to walk Related Data Home Medications Medication Instructions Recorded Confirmed cholecalciferol (vitamin D3) 50 50 mcg PO DAILY 01/19/22 07/22/23 mcg (2,000 unit) capsule levothyroxine 75 mcg tablet 75 mcg PO DAILY@0600 01/19/22 07/22/23 mecobalamin (vitamin B12) 1,000 1,000 mcg PO DAILY 04/05/23 07/22/23 mcg chewable tablet carbidopa ER 23.75 mg-levodopa 95 3 cap PO BID@1200,1800 05/26/23 07/22/23 mg capsule,extended release (Rytary) carbidopa ER 23.75 mg-levodopa 95 4 cap PO DAILY@0800 05/26/23 07/22/23 mg capsule,extended release (Rytary) acetaminophen 325 mg tablet 650 mg PO TID 07/22/23 07/22/23 ascorbic acid (vitamin C) 500 mg 500 mg PO DAILY 07/22/23 07/22/23 tablet Previous Rx's Medication Instructions Recorded selegiline HCl 5 mg tablet 5 mg PO BID 30 days #60 tabs 01/27/23 ferrous sulfate 324 mg (65 mg 324 mg PO DAILY #30 tabs 05/31/23 iron) tablet,delayed release pimavanserin 34 mg capsule 34 mg PO DAILY 30 days #30 caps 07/22/23 (Nuplazid) Allergies Allergy/AdvReac Type Severity Reaction Status Date / Time alendronate sodium AdvReac Unknown Unknown Verified 07/22/23 20:43 [From Fosamax] Review of Systems Review of Systems: Constitutional : No Fever, No Chills ENT/Mouth : No Ear Pain, No Hoarseness, No sore throat Eyes: No Eye Pain, No Swelling, No Redness, No Foreign Body Cardiovascular : No Chest Pain, No SOB Respiratory : No Cough, No Dyspnea Gastrointestinal : No Nausea, No Vomiting, No Diarrhea, No abdominal Pain Genitourinary : No Dysuria, No Hematuria Musculoskeletal : positive joint pain, No Myalgias, No Joint Swelling Skin : No Skin lacerations, No rash Neuro : No Weakness, No Numbness, No Loss of Consciousness, No Dizziness, No Headache Psych : No Anxiety/Panic, No Depression All other systems reviewed and are negative [facility] Past Medical History Attestation statement: The following information was validated with the patient. Medical History Hypothyroidism Parkinson's disease Surgical History Hx of colonoscopy History of hand surgery History of total hip replacement Social History Social History Household Members: Spouse Housing: House Do you presently have visiting nurse or other home services: No Alcohol intake: current Alcohol intake frequency: holidays/special occasions only Alcohol type: hard liquor Patient Tobacco Use Status: Current everyday Tobacco user Tobacco use type: Cigarette Cigarettes Per Day: 4 Years Smoked: 35 Second Hand Smoke Exposure: Yes Advance Directives: No Advance Directives Information Provided: No service: No Current occupational status: retired and disabled 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 Oriented X3. No acute distress. Anxious Eyes: Pupils equal, round and reactive to light. ENT: Pharynx normal. Neck: Normal inspection. Neck supple. CVS: Normal heart rate and rhythm. Pulses normal. Respiratory: No respiratory distress. Breath sounds normal. Abdomen: Soft and non-tender. Skin: Skin warm and dry. Normal skin color. Normal skin turgor. Extremities: R leg is shortened and ext rotated distal NV intact Neuro: Oriented X 3. No motor deficit. No sensory deficit. Course Course Course Narrative: Patient placed in physician observation at 1106pm. The indication for observation is that the patient needs more time to see orthopedics and for safe discharge. At this time the patient is well developed well nourished, lungs clear, CV RRR, abd nontender, neuro is at baseline Medications Administered Generic Name Dose Route Start Last Admin Trade Name Freq PRN Reason Stop Dose Admin Oxycodone HCl 5 mg 07/22/23 22:35 07/22/23 23:16 Oxycodone Hcl Immed Release 5 Mg Tablet PO 5 mg Q6H PRN Administration Pain, Moderate(Pain Scale 4-6) Procedures Orthopedic Splinting/Casting Injury #1: Side: right Lower Extremity Injury Location: knee Lower Extremity Immobilizer: knee immobilizer Additional Comments: NV intact Medical Decision Making Medical Decision Making MDM Narrative: 83 yo female not on thinners hx of parkinson's who just got out of rehab s/p IMN of R femur this May here s/p fall with pain in R femur area she is distal NV intact. no other injuries at this time will obtain xrays and labs suspect rehab vs ortho intervention. she feels better with immobilizer at this time. Differential Diagnosis Differential Diagnoses: The differential diagnosis associated with the presentation includes fall, fracture Admission/Observation Consideration of admission/observation: Escalation of care including admission/observation considered observation for rehab Consult Healthcare Provider Management of the patient was discussed with: Customer Service Manager (orthopedics - rehab but will see in AM) Lab Data 07/22/23 20:56 07/22/23 20:56 Labs: Lab Results 07/22/23 Range/Units 20:56 WBC 5.7 (4.8-10.8) X10*3/uL RBC 3.42 L (4.20-5.50) X10*6/uL Hgb 11.2 L (12.0-16.0) g/dl Hct 34.7 L (37.0-47.0) % MCV 101.5 H (80.0-98.0) fL MCH 32.7 (27.0-33.0) pg MCHC 32.3 (31.0-35.0) g/dl RDW 13.3 (11.0-16.0) % Plt Count 170 (160-400) X10*3/uL MPV 11.0 (9.4-12.3) fL Immature Gran % (Auto) 0.2 (0.0-0.4) % Neut % (Auto) 66.2 (45-73) % Lymph % (Auto) 19.8 L (20-40) % [place] % (Auto) 8.5 (2-11) % Eos % (Auto) 4.4 H (0-4) % Baso % (Auto) 0.9 (0-2) % Lymph # (Auto) 1.1 L (1.2-4.9) X10*3/uL [place] # (Auto) 0.5 (0.1-1.2) X10*3/uL Eos # (Auto) 0.3 (0.0-0.4) X10*3/uL Baso # (Auto) 0.1 (0.0-0.2) X10*3/uL Abs Immat Gran (auto) 0.01 (0.00-0.03) X10*3/uL Absolute Neuts (auto) 3.7 (2.0-8.3) x10*3/uL Absolute Nucleated RBC 0.000 (0.0-0.012) X10*3/uL Nucleated RBC % (auto) 0.0 (0.0-0.2) /100WBC Sodium 142 (135-145) mmol/L Potassium 4.4 (3.3-5.1) mmol/L Chloride 111 H (96-108) mmol/L Carbon Dioxide 23 (22-29) mmol/L Anion Gap 12 (12-20) BUN 20 H (9-16) mg/dL Creatinine 0.81 (0.5-1.4) mg/dL Estim Creat Clear Calc 43.5 Estimated GFR > 60 Random Glucose 105 (60-115) mg/dL Calcium 9.3 (8.4-10.2) mg/dL Total Bilirubin 0.3 (0.0-1.0) mg/dL AST 14 (5-31) U/L ALT < 5 (0-31) U/L Alkaline Phosphatase 176 H (39-117) U/L Total Protein 6.0 L (6.5-8.0) g/dL Albumin 3.9 (3.5-5.0) g/dL Independent Interpretation I performed an independent interpretation of an: Plain X-Ray (periprosthetic fx no hardware failure) Radiology Impression Discussion of test interpretation with radiology: I have reviewed the radiologist's reading. External Record Review External record reviewed: Inpatient record and Office record Discharge Plan Discharge Clinical Impression: Nancy-prosthetic femoral shaft fracture Patient Disposition: Still a Patient Prescriptions: No Action selegiline HCl 5 mg tablet 5 mg PO BID 30 Days Qty: 60 6RF Nuplazid 34 mg capsule 34 mg PO DAILY 30 Days Qty: 30 6RF Rytary 23.75-95 mg capsule, extended release 3 cap PO BID@1200,1800 Rytary 23.75-95 mg capsule, extended release 4 cap PO DAILY@0800 ferrous sulfate 324 mg (65 mg iron) Tablet,Delayed Release (Dr/Ec) 324 mg PO DAILY Qty: 30 0RF acetaminophen 325 mg Tablet 650 mg PO TID ascorbic acid (vitamin C) 500 mg Tablet 500 mg PO DAILY cholecalciferol (vitamin D3) 50 mcg (2,000 unit) capsule 50 mcg PO DAILY levothyroxine 75 mcg tablet 75 mcg PO DAILY@0600 mecobalamin (vitamin B12) 1,000 mcg tablet,chewable 1,000 mcg PO DAILY
--- NOTE | 2023-07-22 22:45 | PHA.MEDREC ---
Pharmacy Consult ? Medication Reconciliation Pharmacy has completed the medication reconciliation. Patient's has list of medicaitons. Will bring Rytary in. Daly Burnham, EnriqueD
[2023-07-22] MEDS: oxyCODONE HCl Immed Release 5 MG TABLET PO (23:16)
[2023-07-22 23:39] VITALS: BP 152/74; PULSE 96; RESP 17; O2SAT 100
--- NOTE | 2023-07-22 23:41 | PC.NURSE ---
Report to Ashley SÁNCHEZ in Overflow
--- NOTE | 2023-07-23 04:26 | PC.NURSE ---
Patient admitted to ED overflow. Patient confused, yelling out intermittently. No c/o pain at present. Patient resting quietly . Bed alarm on for safety, call tripathi within reach.
[2023-07-23] MEDS: Levothyroxine Sodium 75 MCG TABLET PO (05:30)
[2023-07-23 06:00] VITALS: BP 143/70; PULSE 98; RESP 18; TEMP 36.1; O2SAT 98
[2023-07-23] MEDS: Acetaminophen 325 MG TABLET 650 MG PO (06:57)
[2023-07-23] MEDS: Ferrous Sulfate 324 MG TABLET.DR PO (08:53)
[2023-07-23] MEDS: Cyanocobalamin (Vitamin B-12) 1,000 MCG TABLET 1000 MCG PO (08:53)
[2023-07-23] MEDS: Cholecalciferol (Vitamin D3) 25 MCG TABLET 50 MCG PO (08:53)
[2023-07-23] MEDS: Ascorbic Acid 500 MG TABLET PO (08:53)
[2023-07-23 09:48] VITALS: BP 131/75; PULSE 89; RESP 20; TEMP 36.6; O2SAT 100
--- NOTE | 2023-07-23 11:03 | PC.NURSE ---
resting in bed- talking w/o issue- repositioned- using bedpan for BM. purewick c/d/i we/clear yellow urine. readjusted in bed. r leg immobilizer on- c/d/i with +CMS. no incontinence at this time. appears comfortable. no distress noted.
[2023-07-23] MEDS: CARBIDOPA LEVODOPA 4 EACH PO (11:06)
--- NOTE | 2023-07-23 13:31 | PC.NURSE ---
sleeping without distress.
--- NOTE | 2023-07-23 14:00 | PC.NURSE ---
attempted to give selegiline but med was not verified by pharmacy since it is home med and no label on it. pharmacy is pending label making in order to admin this med as it will not scan and the pills in bubble pack need to be officially identified.
--- NOTE | 2023-07-23 14:22 | PC.NURSE ---
case briefer working on pt's case in overflow.
--- NOTE | 2023-07-23 14:26 | PC.NURSE ---
pharmacy ancillary came to discuss selegiline as rn had requested earlier that pharm make a patient label as this rn unable to administer because it has no [facility] barcode- rn had requested pharmacy label it. spoke w pharmacist because it is still not in pyxis. pharmacist on phone stated he is checking into it again as he may be able to stock it into our pyxis directly instead of this process.
--- NOTE | 2023-07-23 14:38 | PC.NURSE ---
pt yelling and demanding to remove people from this place . asking for Bill to kick everyone out . Pt becoming increasingly agitated. This RN called CHE Rivera who is ordering Seroquel
--- NOTE | 2023-07-23 14:55 | PC.NURSE ---
patient refusing PO Seroquel, at side at this time
--- NOTE | 2023-07-23 15:02 | PC.NURSE ---
aleah rn was covering this rn- followed up again with pharmacy- pharmacy states still working on home med verification for selegiline. also martín huerta informed at bedside no more nuplazid after this dose that was given today.
--- NOTE | 2023-07-23 15:46 | MHC.CM.PN ---
CM MET WITH AND PT AT BEDSIDE TO DISCUSS PLAN FOR DC. THEY WOULD LIKE TO GO BACK TO [facility] SHE JUST DC THERE A DAY PREVIOUS, HOWEVER THE BED HAS BEEN FILLED. THEY ARE WILLING TO FOLLOW SHOULD A BED OPEN UP. PT EVAL TO BE DONE MESSAGE LEFT FOR BILL TO DISCUSS OTHER REHAB CHOICES, CM WILL CONTINUE TO FOLLOW FOR DC PLAN
[2023-07-23 15:52] VITALS: BP 116/62; PULSE 89; RESP 16; TEMP 36.5; O2SAT 96
--- NOTE | 2023-07-23 17:09 | PC.NURSE ---
Resumed care at approximately 1500. Pt alert and awake, forgetful, easily reoriented otherwise is calm and cooperative. Held PO Seroquel for now. Ortho at bedside, plan to admit, awaiting bed assignment. Immobilizer in place on R Leg. Pt currently resting in bed with no acute distress. Purewick in place for incontinence. Will continue with the plan of care.
[2023-07-23 18:00] VITALS: BP 122/69; PULSE 87; RESP 16; TEMP 36.2; O2SAT 97
--- NOTE | 2023-07-23 20:05 | P.CONOP_ITS ---
History of Present Illness HPI Consult date: 07/23/23 Chief complaint: right femur fx Narrative: Ms. Lindo is an 83 yo female with a PMH significant for anemia and Parkinsons disease. Of note, the patient sustained a right femoral neck fracture this pasty May after sustaining a mechanical fall and an IM Nail was performed by Dr. Giraldo. Her is also at bedside and is able to help provide a history. The patient sustained a mechanical fall again while twisting. After the fall she had immediate right leg pain and was unable to ambulate. She presented to the emergency department where x-rays were obtained and she was found to have a femoral shaft fracture. Orthopedics was consulted for further evaluation and treatment. Review of Systems 2 Review of Systems: Yes all other systems are reviewed and are negative PMFSH Past Medical History Medical History Hypothyroidism Parkinson's disease Surgical History Surgical History Hx of colonoscopy History of hand surgery History of total hip replacement Social History Social History Household Members: Spouse Housing: House Do you presently have visiting nurse or other home services: No Alcohol intake: current Alcohol intake frequency: holidays/special occasions only Alcohol type: hard liquor Patient Tobacco Use Status: Current everyday Tobacco user Tobacco use type: Cigarette Cigarettes Per Day: 4 Years Smoked: 35 Second Hand Smoke Exposure: Yes Advance Directives: No Advance Directives Information Provided: No Nutrition Risks: No Nutritional Risk service: No Current occupational status: retired and disabled 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 Allergies Allergy/AdvReac Type Severity Reaction Status Date / Time alendronate sodium AdvReac Unknown Unknown Verified 07/22/23 20:43 [From Fosamax] Active Medications: Current Medications Acetaminophen (Acetaminophen 325 Mg Tablet) 650 mg PO Q4H PRN PRN Reason: Pain, Mild (Pain Scale 1-3) Last Admin: 07/23/23 06:57 Dose: 650 mg Ascorbic Acid (Ascorbic Acid 500 Mg Tablet) 500 mg PO DAILY [facility] Last Admin: 07/23/23 08:53 Dose: 500 mg Cyanocobalamin (Cyanocobalamin (Vitamin B-12) 1,000 Mcg Tablet) 1,000 mcg PO DAILY [facility] Last Admin: 07/23/23 08:53 Dose: 1,000 mcg Ferrous Sulfate (Ferrous Sulfate 324 Mg Tablet.) 324 mg PO DAILY [facility] Last Admin: 07/23/23 08:53 Dose: 324 mg Levothyroxine Sodium (Levothyroxine Sodium 75 Mcg Tablet) 75 mcg PO DAILY@0600 [facility] Last Admin: 07/23/23 05:30 Dose: 75 mcg Pt Own : (Carbidopa- Levodopa [Rytary] 23 .75-95 Mg Capsule, Extended Releas 3 cap PO BID@1200,1800 [facility] Last Admin: 07/23/23 18:12 Dose: 3 cap Pt Own (Carbidopa- Levodopa [Rytary] 23 .75-95 Mg Capsule, Extended Releas 4 cap PO DAILY@0800 [facility] Last Admin: 07/23/23 11:06 Dose: 4 cap Pt Own : ( Pimavanserin [ Nuplazid] 34 Mg Capsule) 34 mg PO DAILY [facility] Last Admin: 07/23/23 10:39 Dose: 34 mg Oxycodone HCl (Oxycodone Hcl Immed Release 5 Mg Tablet) 5 mg PO Q6H PRN PRN Reason: Pain, Moderate(Pain Scale 4-6) Last Admin: 07/22/23 23:16 Dose: 5 mg Selegiline HCl (Selegiline Hcl 5 Mg Capsule) 5 mg PO BID@0800,1200 [facility] Last Admin: 07/23/23 16:20 Dose: Not Given Vitamin D (Cholecalciferol (Vitamin D3) 25 Mcg Tablet) 50 mcg PO DAILY [facility] Last Admin: 07/23/23 08:53 Dose: 50 mcg Home Medications Medication Instructions Recorded Confirmed Last Taken Type cholecalciferol (vitamin D3) 50 50 mcg PO DAILY 01/19/22 07/22/23 05/26/23 History mcg (2,000 unit) capsule levothyroxine 75 mcg tablet 75 mcg PO DAILY@0600 01/19/22 07/22/23 05/26/23 History mecobalamin (vitamin B12) 1,000 1,000 mcg PO DAILY 04/05/23 07/22/23 05/26/23 History mcg chewable tablet carbidopa ER 23.75 mg-levodopa 95 3 cap PO BID@1200,1800 05/26/23 07/22/23 05/26/23 History mg capsule,extended release (Rytary) carbidopa ER 23.75 mg-levodopa 95 4 cap PO DAILY@0800 05/26/23 07/22/23 05/26/23 History mg capsule,extended release (Rytary) acetaminophen 325 mg tablet 650 mg PO TID 07/22/23 07/22/23 Unknown History ascorbic acid (vitamin C) 500 mg 500 mg PO DAILY 07/22/23 07/22/23 Unknown History tablet Physical Exam 2 Vital Signs: Vital Signs: Last Vital Signs Temp 97.2 F 07/23/23 18:00 Pulse 87 07/23/23 18:00 Resp 16 07/23/23 18:00 BP 122/69 07/23/23 18:00 Pulse Ox 97 07/23/23 18:00 O2 Del Method Room Air 07/23/23 18:00 BMI result Body Mass Index 20.9 Const: General: cooperative, healthy appearing and no acute distress Resp: Effort & Inspection: normal respiratory effort and able to speak in complete sentences Cardio: Rate: regular rate Peripheral pulses: Peripheral pulses 2+ throughout GI: Palpation (GI): Soft to palpation Skin: Lesions: no lesions Rashes: no rashes Extrem: Other: Right lower extremity extreme pain with any motion. Pedal pulse intact. Sensation intact. Results Labs 07/22/23 20:56 07/22/23 20:56 Labs: Abnormal lab results 07/22/23 Range/Units 20:56 RBC 3.42 L (4.20-5.50) X10*6/uL Hgb 11.2 L (12.0-16.0) g/dl Hct 34.7 L (37.0-47.0) % MCV 101.5 H (80.0-98.0) fL Lymph % (Auto) 19.8 L (20-40) % Eos % (Auto) 4.4 H (0-4) % Lymph # (Auto) 1.1 L (1.2-4.9) X10*3/uL Chloride 111 H (96-108) mmol/L BUN 20 H (9-16) mg/dL Alkaline Phosphatase 176 H (39-117) U/L Total Protein 6.0 L (6.5-8.0) g/dL H & H 07/22/23 Range/Units 20:56 Hgb 11.2 L (12.0-16.0) g/dl Hct 34.7 L (37.0-47.0) % All other labs normal. Assessment and Plan (1) Nancy-prosthetic femoral shaft fracture: Status: Acute I discussed the case with Dr. Giraldo and he was available to meet with the patient and her at bedside. Dr. Giraldo explained the extent of the injury to the patient and options available which include surgical intervention. He explained the procedure in detail along with the length of recovery and rehab course. He explained the risk, benefits and alternatives. Risk including, but not limited to infection, blood clots, bleeding, non union or malunion and nerve/tissue damage to surrounding areas. I answered all their questions and with their understanding they have consented to move forward with Operative Fixation of a distal locking screw on the IM Nail already in place to assist with fracture stabilization. Time Spent With Patient Time: Total time managing care of this patient today ____ minutes. Procedures Date of Service Date of Service: 07/23/23
[2023-07-24] VITALS: BP 140/65; PULSE 81; RESP 16; TEMP 36.6; O2SAT 98
[2023-07-24] MEDS: Acetaminophen 325 MG TABLET 650 MG PO (00:01)
[2023-07-24 00:32] LABS: Appearance Urine Turbid; Color Urine Yellow; Glucose Urine UA Negative (Negative); Leukocyte Esterase Urine Small (1+) (Negative); Nitrite Urine Positive (Negative); PH 6.5 (5.0-9.0); UMIC TRIGGER UACC YES; Urine Blood Negative (Negative); Urine Ketones Negative (Negative); Urine Protein Negative (Neg-Trace)
--- NOTE | 2023-07-24 00:47 | PC.NURSE ---
Assumed care at 1900 07/23, Patient confused but redirectable at times. Yelling out talking to numerous people that are not present.Complaining of R leg pain. Refusing pain medication initially. Encouraged to at least take Tylenol. Tylenol 650mg administered to patient with good effect. Patient resting quietly . Immobilizer on right leg in place.
[2023-07-24 00:48] LABS: Bacteria Urine 4+ (None Seen); Hyaline Casts Urine 0-2 /LPF (0-2); RBC Urine 0-2 /HPF (0-2); Squamous Epithelial Cell Urine 0-2 /HPF (0-2); UACC Culture Trigger YES; WBC Urine 0-5 /HPF (0-5)
[2023-07-24] MEDS: Levothyroxine Sodium 75 MCG TABLET PO (05:52)
[2023-07-24 06:20] VITALS: BP 149/72; PULSE 96; RESP 16; TEMP 36.8; O2SAT 99
[2023-07-24] MEDS: Ferrous Sulfate 324 MG TABLET.DR PO (08:25)
[2023-07-24] MEDS: Ascorbic Acid 500 MG TABLET PO (08:25)
[2023-07-24] MEDS: Cholecalciferol (Vitamin D3) 25 MCG TABLET 50 MCG PO (08:25)
[2023-07-24] MEDS: Cyanocobalamin (Vitamin B-12) 1,000 MCG TABLET 1000 MCG PO (08:25)
[2023-07-24] MEDS: 0.9 % Sodium Chloride Flush 3 ML SYRINGE IVFLUSH (08:49)
--- NOTE | 2023-07-24 09:00 | PC.NURSE ---
LR late d/t pt is a difficult stick. previous iv inserted in the field by ems. ultrasound trained RN from ED asked to come to unit to replace iv.
--- NOTE | 2023-07-24 09:30 | PC.NURSE ---
new ivs inserted, 20g LAC. 22g R wrist, both inserted by CHE Pickens. IV in L forearm removed. skin tear observed at the site where the iv was. area cleaned and covered with non-adhesive gauze.
[2023-07-24] MEDS: Lactated Ringers 1,000 ML 100 ML IVCONT ×2 (11:28→20:58)
[2023-07-24 11:57] VITALS: BP 130/74; PULSE 78; RESP 18; TEMP 35.7; O2SAT 98
--- NOTE | 2023-07-24 12:06 | PM.EVENT ---
Event Note Date of Service: 07/24/23 Event Note: Patient seen this AM-explained to at bedside procedure tomorrow as previously discussed with dr ross. he is content with plan Time Spent With Patient Time: Total time managing care of this patient today ____ minutes.
--- NOTE | 2023-07-24 15:14 | P.CONIM_ITS ---
History of Present Illness Data of Consult Service Date: 07/24/23 Requesting physician: Alina Oliveira Primary Care Provider: Omar Siu MD [facility] Reason for consult: Routine Medical Management This is an 83 year old female with history of parkinson's disease, gait instability, hypothyroidism, recent admission for right hip fracture s/p IMN in May who presented to the ED after mechanical fall found to have spiral fx of the right right femur. She was admitted to the orthopedic service with plan for Operative Fixation of a distal locking screw on the IM Nail already in place to assist with fracture stabilization. The hospitalists were asked to see her in consultation for routine medical management. She is awake and alert, somewhat vague historian, but is able to answer most questions appropriately. Patient is resting in bed comfortably and has no specific complaints at this time. Review of Systems 2 Review of Systems: Yes all other systems are reviewed and are negative Constitutional: Constitutional: Denies chills and Denies fever(s) Cardiovascular: Cardiovascular: Denies chest pain and Denies palpitations Respiratory: Respiratory: Denies cough Gastrointestinal: Gastrointestinal: Denies abdominal pain Endocrine: Endocrine: Denies palpitations [facility] Medical History (Updated 07/24/23 @ 15:34 by CHE Valadez) Aortic stenosis, mild Hypothyroidism Parkinson's disease Family History (Updated 07/24/23 @ 15:34 by CHE Valadez) Sister AAA (abdominal aortic aneurysm) Surgical History Hx of colonoscopy History of hand surgery History of total hip replacement Social History Household Members: Spouse Housing: House Do you presently have visiting nurse or other home services: No Alcohol intake: current Alcohol intake frequency: holidays/special occasions only Alcohol type: hard liquor Patient Tobacco Use Status: Current everyday Tobacco user Tobacco use type: Cigarette Cigarettes Per Day: 4 Years Smoked: 35 Second Hand Smoke Exposure: Yes Advance Directives: No Advance Directives Information Provided: No Nutrition Risks: No Nutritional Risk service: No Current occupational status: retired and disabled 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 Allergies Allergy/AdvReac Type Severity Reaction Status Date / Time alendronate sodium AdvReac Unknown Unknown Verified 07/22/23 20:43 [From Fosamax] Active Medications: Current Medications Acetaminophen (Acetaminophen 325 Mg Tablet) 650 mg PO Q4H PRN PRN Reason: Pain, Mild (Pain Scale 1-3) Last Admin: 07/24/23 00:01 Dose: 650 mg Ascorbic Acid (Ascorbic Acid 500 Mg Tablet) 500 mg PO DAILY [facility] Last Admin: 07/24/23 08:25 Dose: 500 mg Cyanocobalamin (Cyanocobalamin (Vitamin B-12) 1,000 Mcg Tablet) 1,000 mcg PO DAILY [facility] Last Admin: 07/24/23 08:25 Dose: 1,000 mcg Ferrous Sulfate (Ferrous Sulfate 324 Mg Tablet.Dr) 324 mg PO DAILY [facility] Last Admin: 07/24/23 08:25 Dose: 324 mg Lactated Ringer's (Lr) 1,000 mls @ 100 mls/hr IVCONT .Q10H [facility] Last Admin: 07/24/23 11:28 Dose: 100 mls/hr Levothyroxine Sodium (Levothyroxine Sodium 75 Mcg Tablet) 75 mcg PO DAILY@0600 [facility] Last Admin: 07/24/23 05:52 Dose: 75 mcg Pt Own : (Carbidopa- Levodopa [Rytary] 23 .75-95 Mg Capsule, Extended Releas 3 cap PO BID@1200,1800 [facility] Last Admin: 07/24/23 14:06 Dose: Not Given Pt Own (Carbidopa- Levodopa [Rytary] 23 .75-95 Mg Capsule, Extended Releas 4 cap PO DAILY@0800 [facility] Last Admin: 07/24/23 12:54 Dose: Not Given Pt Own : ( Pimavanserin [ Nuplazid] 34 Mg Capsule) 34 mg PO DAILY [facility] Last Admin: 07/24/23 08:26 Dose: 34 mg Oxycodone HCl (Oxycodone Hcl Immed Release 5 Mg Tablet) 5 mg PO Q6H PRN PRN Reason: Pain, Moderate(Pain Scale 4-6) Last Admin: 07/22/23 23:16 Dose: 5 mg Selegiline HCl (Selegiline Hcl 5 Mg Capsule) 5 mg PO BID@0800,1200 [facility] Last Admin: 07/24/23 14:08 Dose: Not Given Sodium Chloride (0.9 % Sodium Chloride Flush 3 Ml Syringe) 3 ml IVFLUSH QSHIFT [facility] Last Admin: 07/24/23 08:49 Dose: 3 ml Vitamin D (Cholecalciferol (Vitamin D3) 25 Mcg Tablet) 50 mcg PO DAILY [facility] Last Admin: 07/24/23 08:25 Dose: 50 mcg Home Medications Medication Instructions Recorded Confirmed Last Taken Type cholecalciferol (vitamin D3) 50 50 mcg PO DAILY 01/19/22 07/22/23 05/26/23 History mcg (2,000 unit) capsule levothyroxine 75 mcg tablet 75 mcg PO DAILY@0600 01/19/22 07/22/23 05/26/23 History mecobalamin (vitamin B12) 1,000 1,000 mcg PO DAILY 04/05/23 07/22/23 05/26/23 History mcg chewable tablet carbidopa ER 23.75 mg-levodopa 95 3 cap PO BID@1200,1800 05/26/23 07/22/23 05/26/23 History mg capsule,extended release (Rytary) carbidopa ER 23.75 mg-levodopa 95 4 cap PO DAILY@0800 05/26/23 07/22/23 05/26/23 History mg capsule,extended release (Rytary) acetaminophen 325 mg tablet 650 mg PO TID 07/22/23 07/22/23 Unknown History ascorbic acid (vitamin C) 500 mg 500 mg PO DAILY 07/22/23 07/22/23 Unknown History tablet Physical Exam 2 Vital Signs and Narrative: Vital Signs: Last Vital Signs Temp 96.2 F L 07/24/23 11:57 Pulse 78 07/24/23 11:57 Resp 18 07/24/23 11:57 BP 130/74 07/24/23 11:57 Pulse Ox 98 07/24/23 11:57 O2 Del Method Room Air 07/24/23 11:57 BMI result Body Mass Index 20.9 Const: Other: somewhat forgetful General: cooperative, comfortable, no acute distress, alert and awake N utritional Appearance: thin Resp: Effort & Inspection: normal respiratory effort, able to speak in complete sentences, no respiratory distress and no use of accessory muscles Cardio: Rate: regular rate Heart sounds: Murmur heart sound present GI: Inspection: No distended Palpation (GI): Soft to palpation and nontender Neuro: General: moves all extremities and CN's II-XI intact bilaterally Extrem: Other: RLE in immobilizer Results Labs 07/22/23 20:56 07/22/23 20:56 Labs: Laboratory Results - last 24 hr 07/24/23 00:23 Urine Color Yellow Urine Appearance Turbid Urine pH 6.5 Ur Specific [place] 1.020 Urine Protein Negative Urine Glucose (UA) Negative Urine Ketones Negative Urine Blood Negative Urine Nitrite Positive H Ur Leukocyte Esterase Small (1+) H Urine RBC 0-2 Urine WBC 0-5 Ur Squamous Epith Cells 0-2 Urine Bacteria 4+ Hyaline Casts 0-2 Assessment and Plan (1) Nancy-prosthetic femoral shaft fracture: Status: Acute Plan This is an 83 year old female with history of parkinson's disease, gait instability, hypothyroidism, recent admission for right hip fracture s/p IMN in May who presented to the ED after mechanical fall found to have spiral fx of the right right femur Right femur fracture around the right IMN ortho plans for Operative Fixation of a distal locking screw on the IM Nail already in place to assist with fracture stabilization heart murmur on exam, ECHO from [facility] 03/2022 with mild Parkinson's disease continue sinemet, rytary and selegiline hypothyroidism continue levothyroxine dvt ppx - per primary team thank you for allowing us to participate in the care of this patient. we will follow along with you Time Spent With Patient Time: Total time managing care of this patient today ____ minutes.
--- NOTE | 2023-07-24 16:09 | MHC.EDTECH ---
Assisted nurse with putting patient on bed alexandra, cleaning patient and changing bed pads.
[2023-07-24 20:25] VITALS: BMI 20.3
[2023-07-24 20:45] VITALS: BP 119/60; PULSE 92; RESP 17; TEMP 36.2; O2SAT 95
[2023-07-25 02:55] VITALS: BP 148/70; PULSE 80; RESP 17; TEMP 36.6; O2SAT 98
[2023-07-25 06:00] LABS: MANUAL DIFF FLAG NO
[2023-07-25 06:07] LABS: Basophils Absolute Auto 0.1 X10*3/uL (0.0-0.2); Basophils Percent Auto 0.9 % (0-2); Eosinophils Absolute Auto 0.3 X10*3/uL (0.0-0.4); Eosinophils Percent Auto 4.3 % (0-4); Hemoglobin 10.3 g/dl (12.0-16.0); Imm Gran Abs Auto 0.01 X10*3/uL (0.00-0.03); Imm Gran Pct Auto 0.2 % (0.0-0.4); Lymphocytes Percent Auto 17.8 % (20-40); Mean Corpuscular HGB Conc 32.2 g/dl (31.0-35.0); Mean Corpuscular Hemoglobin 33.3 pg (27.0-33.0); Mean Corpuscular Volume 103.6 fL (80.0-98.0); Mean Platelet Volume 10.6 fL (9.4-12.3); Monocytes Absolute Auto 0.5 X10*3/uL (0.1-1.2); Monocytes Percent Auto 9.2 % (2-11); Neutrophils Absolute Auto 3.9 x10*3/uL (2.0-8.3); Neutrophils Percent Auto 67.6 % (45-73); Platelet Count 217 X10*3/uL (160-400); Red Blood Count 3.09 X10*6/uL (4.20-5.50); Red Cell Distribution Width 13.2 % (11.0-16.0); White Blood Count 5.8 X10*3/uL (4.8-10.8)
[2023-07-25 06:19] LABS: Anion Gap 16 (12-20); Blood Urea Nitrogen 13 mg/dL (9-16); Calcium 8.2 mg/dL (8.4-10.2); Carbon Dioxide 18 mmol/L (22-29); Chloride 109 mmol/L (96-108); Creatinine Clr Calc Pharmacy 63.5; Estimated Glomerular Filt Rate > 60; Glucose Fasting 76 mg/dL (60-99); Glucose Random 76 mg/dL (60-115); Potassium 3.5 mmol/L (3.3-5.1); Sodium 139 mmol/L (135-145)
[2023-07-25 07:37] VITALS: BP 153/72; PULSE 88; RESP 18; TEMP 36.1; O2SAT 100
[2023-07-25] MEDS: oxyCODONE HCl Immed Release 5 MG TABLET PO ×2 (08:40→15:56)
[2023-07-25] MEDS: 0.9 % Sodium Chloride Flush 3 ML SYRINGE IVFLUSH ×2 (08:44→21:21)
[2023-07-25] MEDS: Lactated Ringers 1,000 ML 100 ML IVCONT ×2 (08:48→19:56)
[2023-07-25] MEDS: Cyanocobalamin (Vitamin B-12) 1,000 MCG TABLET 1000 MCG PO (10:22)
[2023-07-25] MEDS: CARBIDOPA LEVODOPA 4 EACH PO (10:23)
[2023-07-25] MEDS: Cholecalciferol (Vitamin D3) 25 MCG TABLET 50 MCG PO (10:23)
[2023-07-25] MEDS: Ascorbic Acid 500 MG TABLET PO (10:23)
[2023-07-25] MEDS: Ferrous Sulfate 324 MG TABLET.DR PO (10:23)
--- NOTE | 2023-07-25 12:33 | P.PNIM_ITS ---
Subjective Subjective Date of Service: 07/25/23 Review of Systems Follow up consult, fall, Femur fracture around IMN nailing hx of dementia so difficult to elicit complaints Physical Exam 2 Vital Signs: Vital Signs: Last Vital Signs Temp 96.9 F 07/25/23 07:37 Pulse 88 07/25/23 07:37 Resp 18 07/25/23 07:37 BP 153/72 H 07/25/23 07:37 Pulse Ox 100 07/25/23 07:37 O2 Del Method Room Air 07/25/23 07:37 BMI result Body Mass Index 20.3 Appearing in no acute distress lung sounds are clear to auscultation heart regular rate rhythm, clear S1, S2 positive bowel sounds, abdomen is soft, nontender neuro patient is alert, confused Objective Data Active Medications Acetaminophen (Acetaminophen 325 Mg Tablet) 650 mg PO Q4H PRN PRN Reason: Pain, Mild (Pain Scale 1-3) Last Admin: 07/24/23 00:01 Dose: 650 mg Documented By: JOHN Ascorbic Acid (Ascorbic Acid 500 Mg Tablet) 500 mg PO DAILY [facility] Last Admin: 07/25/23 10:23 Dose: 500 mg Documented By: AMY Cyanocobalamin (Cyanocobalamin (Vitamin B-12) 1,000 Mcg Tablet) 1,000 mcg PO DAILY [facility] Last Admin: 07/25/23 10:22 Dose: 1,000 mcg Documented By: AMY Ferrous Sulfate (Ferrous Sulfate 324 Mg Tablet.Dr) 324 mg PO DAILY [facility] Last Admin: 07/25/23 10:23 Dose: 324 mg Documented By: AMY Lactated Ringer's (Lr) 1,000 mls @ 100 mls/hr IVCONT .Q10H [facility] Last Admin: 07/25/23 08:48 Dose: 100 mls/hr Documented By: AMY Levothyroxine Sodium (Levothyroxine Sodium 75 Mcg Tablet) 75 mcg PO DAILY@0600 [facility] Last Admin: 07/25/23 05:36 Dose: Not Given Documented By: GERMAINE Non-Admin Reason: NPO Pt Own : (Carbidopa- Levodopa [Rytary] 23 .75-95 Mg Capsule, Extended Releas 3 cap PO BID@1200,1800 [facility] Last Admin: 07/24/23 19:15 Dose: 3 cap Documented By: DAREK Pt Own (Carbidopa- Levodopa [Rytary] 23 .75-95 Mg Capsule, Extended Releas 4 cap PO DAILY@0800 [facility] Last Admin: 07/25/23 10:23 Dose: 4 cap Documented By: AMY Pt Own : ( Pimavanserin [ Nuplazid] 34 Mg Capsule) 34 mg PO DAILY [facility] Last Admin: 07/24/23 08:26 Dose: 34 mg Documented By: ANNMARIE Oxycodone HCl (Oxycodone Hcl Immed Release 5 Mg Tablet) 5 mg PO Q6H PRN PRN Reason: Pain, Moderate(Pain Scale 4-6) Last Admin: 07/25/23 08:40 Dose: 5 mg Documented By: AMY Selegiline HCl (Selegiline Hcl 5 Mg Capsule) 5 mg PO BID@0800,1200 [facility] Last Admin: 07/25/23 10:23 Dose: 5 mg Documented By: AMY Sodium Chloride (0.9 % Sodium Chloride Flush 3 Ml Syringe) 3 ml IVFLUSH QSHIFT [facility] Last Admin: 07/25/23 08:44 Dose: 3 ml Documented By: AMY Vitamin D (Cholecalciferol (Vitamin D3) 25 Mcg Tablet) 50 mcg PO DAILY [facility] Last Admin: 07/25/23 10:23 Dose: 50 mcg Documented By: AMY Labs 07/25/23 05:54 07/25/23 05:54 Labs: Laboratory Results - last 24 hr 07/25/23 05:54 MCV 103.6 H MCH 33.3 H MCHC 32.2 RDW 13.2 Plt Count 217 D MPV 10.6 Immature Gran % (Auto) 0.2 Neut % (Auto) 67.6 Lymph % (Auto) 17.8 L [place] % (Auto) 9.2 Eos % (Auto) 4.3 H Baso % (Auto) 0.9 Lymph # (Auto) 1.0 L [place] # (Auto) 0.5 Eos # (Auto) 0.3 Baso # (Auto) 0.1 Abs Immat Gran (auto) 0.01 Absolute Neuts (auto) 3.9 Absolute Nucleated RBC 0.000 Nucleated RBC % (auto) 0.0 Anion Gap 16 Estim Creat Clear Calc 63.5 Estimated GFR > 60 Random Glucose 76 Fasting Glucose 76 Calcium 8.2 L D Microbiology Microbiology Results: Microbiology 07/24/23 Unknown Urine Culture - Preliminary Urine clean catch - Clean Catch Midstream Gram negative lilian Assessment and Plan (1) Nancy-prosthetic femoral shaft fracture: Status: Acute Plan This is an 83 year old female with history of parkinson's disease, gait instability, hypothyroidism, recent admission for right hip fracture s/p IMN in May who presented to the ED after mechanical fall found to have spiral fx of the right right femur Right femur fracture around the right IMN ortho plans for Operative Fixation of a distal locking screw on the IM Nail already in place to assist with fracture stabilization heart murmur on exam ECHO from [facility] [place] 03/2022 with mild Parkinson's disease continue sinemet, rytary and selegiline hypothyroidism continue levothyroxine dvt ppx - per primary team Attending Dr. Samayoa Time Spent With Patient Time: Total time managing care of this patient today ____ minutes. Quality Stroke Does the patient have a stroke diagnosis?: No VTE Prior VTE?: No VTE Risk Level:: Medical - moderate - high VTE Device Contraindication: N/A - Device Ordered VTE Drug Contraindication: Treatment Not Indicated
--- NOTE | 2023-07-25 14:52 | MHC.CM.PN ---
IMM DELIVERED PT LIVES WITH SPOUSE WHO SUPPORTS/ASSISTS WITH ADLS. JUST RECENTLY DC FROM [facility], PT/SPOUSE WISH A RETURN REFERRAL BUT CENTER HAS DENIED PT TO RETURN. REFERRAL PLACED TO [facility] PER SPOUSE'S REQUEST, HAS NO OTHER CHOICES AT THIS TIME. + COVID VAX + HCP ON FILE PCP DR. RIVERA DP: PT WILL UNDERGO SURGERY 07/26 FOR RIGHT FEMUR FX. ANTICIPATE NEED FOR STR . REFERRAL TO [facility] PLACED. CM WILL CONTINUE TO FOLLOW FOR DC PLAN/NEEDS.
[2023-07-25 15:10] VITALS: BP 91/54; PULSE 91; RESP 16; TEMP 36.2; O2SAT 95
[2023-07-25 19:20] VITALS: BP 132/66; PULSE 91; RESP 18; TEMP 36.4; O2SAT 95
[2023-07-25] MEDS: LORazepam 2 MG/ML VIAL 0.25 MG IVPUSH (21:28)
[2023-07-26] VITALS (10 sets, daily range): BP systolic 95–157; BP diastolic 53–78; PULSE 78–111; RESP 10–20; TEMP 36.1–37.2; O2SAT 93–99
[2023-07-26] MEDS: OLANZapine 10 MG VIAL 5 MG IM (01:57)
--- NOTE | 2023-07-26 03:55 | PC.NURSE ---
Approximately around 21:00 pt became more agitated, confused, and trying to get out of bed. This RN medicated pt with PRN lorazepam at 21:28 with no effect. Afterwards, pt started to hallucinate thinking someone was in her room attacking her. Pt was cleaned, repositioned, and redirected but with no effect. During the care the, pt started to become combative with spitting and hitting the staff. PRN pain medication was offered to pt, but the pt refused. This RN notified the nursing packing supervisor and hospitalist MD Rayo of the the situation. Sitter was placed to pt's bedside and one Stat of IM Olanzapine 5mg was ordered per JAN. Pt was given the medication per JAN with no effect. Pt still agitated, confused, and hallucinated. Will continue to monitor the pt's behavior.
[2023-07-26] MEDS: Lactated Ringers 1,000 ML 100 ML IVCONT (04:19)
[2023-07-26 06:34] LABS: MANUAL DIFF FLAG NO
[2023-07-26 06:40] LABS: Basophils Percent Auto 0.8 % (0-2); Eosinophils Absolute Auto 0.1 X10*3/uL (0.0-0.4); Eosinophils Percent Auto 2.6 % (0-4); Hematocrit 33.8 % (37.0-47.0); Imm Gran Abs Auto 0.02 X10*3/uL (0.00-0.03); Imm Gran Pct Auto 0.4 % (0.0-0.4); Lymphocytes Absolute Auto 0.8 X10*3/uL (1.2-4.9); Lymphocytes Percent Auto 15.8 % (20-40); Mean Corpuscular HGB Conc 32.5 g/dl (31.0-35.0); Mean Corpuscular Volume 101.5 fL (80.0-98.0); Mean Platelet Volume 11.1 fL (9.4-12.3); Monocytes Absolute Auto 0.5 X10*3/uL (0.1-1.2); Monocytes Percent Auto 9.6 % (2-11); Neutrophils Absolute Auto 3.8 x10*3/uL (2.0-8.3); Neutrophils Percent Auto 70.8 % (45-73); Platelet Count 241 X10*3/uL (160-400); Red Blood Count 3.33 X10*6/uL (4.20-5.50); White Blood Count 5.3 X10*3/uL (4.8-10.8)
[2023-07-26 06:54] LABS: Anion Gap 12 (12-20); Blood Urea Nitrogen 13 mg/dL (9-16); Carbon Dioxide 25 mmol/L (22-29); Chloride 110 mmol/L (96-108); Creatinine Clr Calc Pharmacy 52.9; Estimated Glomerular Filt Rate > 60; Glucose Fasting 76 mg/dL (60-99); Potassium 3.5 mmol/L (3.3-5.1); Sodium 143 mmol/L (135-145)
--- NOTE | 2023-07-26 07:13 | PC.NURSE ---
Addendum entered by Alli Simmons RN 07/26/23 07:32: Anesthesiologist Dr. Diggs and Dr. Barber along with Dr. Giraldo at bedside. patient conversing with doctors. per Sharath Quinteros, director media patient okay to sign procedure and anesthesia consent as no evidence of hallucinations present at this time. Original Note: patient to [facility] with 1:1 sitter at bedside. patient able to verbally state name, birthday, month, president, vague on place and situation.
--- NOTE | 2023-07-26 07:15 | P.CONAN_ITS ---
HPI - Anesthesia Eval Consult details Narrative: S/P right IM nailing for femoral fracture here for revision of screw. [facility] Active Problems Active Problems: All Active Problems (Updated 07/24/23 @ 15:34 by CHE Valadez) Nancy-prosthetic femoral shaft fracture (Acute) Anemia due to blood loss (Acute) REM sleep behavior disorder (Acute) Finger fracture, left (Acute) Fracture of fifth metacarpal bone of left hand (Acute) Traumatic rupture of collateral ligament of left middle finger at metacarpophalangeal and interphalangeal joint, sequela (Acute) Falls (Acute) Closed hip fracture (Acute) Fracture, intertrochanteric, right femur (Acute) Parkinson's disease (Acute) Past Medical History Medical History Aortic stenosis, mild Hypothyroidism Parkinson's disease Family History Family History Sister AAA (abdominal aortic aneurysm) Family history of problems with anesthesia: No Surgical History Surgical History Hx of colonoscopy History of hand surgery History of total hip replacement History of Problems with Anesthesia: No Social History Social History Household Members: Spouse Housing: House Do you presently have visiting nurse or other home services: Yes Alcohol intake: current Alcohol intake frequency: does not drink Alcohol type: hard liquor Patient Tobacco Use Status: Former Tobacco user Tobacco use type: Cigarette Cigarettes Per Day: 4 Years Smoked: 35 Second Hand Smoke Exposure: No service: No Current occupational status: retired and disabled 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 Allergies Allergy/AdvReac Type Severity Reaction Status Date / Time alendronate sodium AdvReac Unknown Unknown Verified 07/22/23 20:43 [From Fosamax] Active Medications: Current Medications Acetaminophen (Acetaminophen 325 Mg Tablet) 650 mg PO Q4H PRN PRN Reason: Pain, Mild (Pain Scale 1-3) Last Admin: 07/24/23 00:01 Dose: 650 mg Ascorbic Acid (Ascorbic Acid 500 Mg Tablet) 500 mg PO DAILY [facility] Last Admin: 07/25/23 10:23 Dose: 500 mg Cyanocobalamin (Cyanocobalamin (Vitamin B-12) 1,000 Mcg Tablet) 1,000 mcg PO DAILY [facility] Last Admin: 07/25/23 10:22 Dose: 1,000 mcg Ferrous Sulfate (Ferrous Sulfate 324 Mg Tablet.Dr) 324 mg PO DAILY [facility] Last Admin: 07/25/23 10:23 Dose: 324 mg Lactated Ringer's (Lr) 1,000 mls @ 100 mls/hr IVCONT .Q10H [facility] Last Admin: 07/26/23 04:19 Dose: 100 mls/hr Levothyroxine Sodium (Levothyroxine Sodium 75 Mcg Tablet) 75 mcg PO DAILY@0600 [facility] Last Admin: 07/26/23 06:41 Dose: Not Given Lorazepam (Lorazepam 2 Mg/Ml Vial) 0.25 mg IVPUSH Q6H PRN PRN Reason: anxiety/restlessness Last Admin: 07/25/23 21:28 Dose: 0.25 mg Pt Own : (Carbidopa- Levodopa [Rytary] 23 .75-95 Mg Capsule, Extended Releas 3 cap PO BID@1200,1800 [facility] Last Admin: 07/25/23 17:51 Dose: 3 cap Pt Own (Carbidopa- Levodopa [Rytary] 23 .75-95 Mg Capsule, Extended Releas 4 cap PO DAILY@0800 [facility] Last Admin: 07/25/23 10:23 Dose: 4 cap Pt Own : ( Pimavanserin [ Nuplazid] 34 Mg Capsule) 34 mg PO DAILY [facility] Last Admin: 07/25/23 13:11 Dose: Not Given Oxycodone HCl (Oxycodone Hcl Immed Release 5 Mg Tablet) 5 mg PO Q6H PRN PRN Reason: Pain, Moderate(Pain Scale 4-6) Last Admin: 07/25/23 15:56 Dose: 5 mg Selegiline HCl (Selegiline Hcl 5 Mg Capsule) 5 mg PO BID@0800,1200 [facility] Last Admin: 07/25/23 13:42 Dose: 5 mg Sodium Chloride (0.9 % Sodium Chloride Flush 3 Ml Syringe) 3 ml IVFLUSH QSHIFT [facility] Last Admin: 07/25/23 21:21 Dose: 3 ml Vitamin D (Cholecalciferol (Vitamin D3) 25 Mcg Tablet) 50 mcg PO DAILY [facility] Last Admin: 07/25/23 10:23 Dose: 50 mcg Home Medications Medication Instructions Recorded Confirmed Last Taken Type cholecalciferol (vitamin D3) 50 50 mcg PO DAILY 01/19/22 07/22/23 05/26/23 History mcg (2,000 unit) capsule levothyroxine 75 mcg tablet 75 mcg PO DAILY@0600 01/19/22 07/22/23 05/26/23 History mecobalamin (vitamin B12) 1,000 1,000 mcg PO DAILY 04/05/23 07/22/23 05/26/23 History mcg chewable tablet carbidopa ER 23.75 mg-levodopa 95 3 cap PO BID@1200,1800 05/26/23 07/22/23 05/26/23 History mg capsule,extended release (Rytary) carbidopa ER 23.75 mg-levodopa 95 4 cap PO DAILY@0800 05/26/23 07/22/23 05/26/23 History mg capsule,extended release (Rytary) acetaminophen 325 mg tablet 650 mg PO TID 07/22/23 07/22/23 Unknown History ascorbic acid (vitamin C) 500 mg 500 mg PO DAILY 07/22/23 07/22/23 Unknown History tablet Exam Exam Date and Time: July 26, 2023 0715 Height,Weight and Vital Signs: Height 5 ft 3 in Weight 51.9 kg Last Vital Signs Temp 97.8 F 07/26/23 06:55 Pulse 92 07/26/23 06:55 Resp 16 07/26/23 06:55 BP 136/64 07/26/23 06:55 Pulse Ox 97 07/26/23 06:55 O2 Del Method Room Air 07/26/23 06:55 Pertinent Lab Results Pertinent Lab Results: Laboratory Tests 07/22/23 07/24/23 07/25/23 20:56 00: 05:54 WBC 5.7 5.8 RBC 3.42 L 3.09 L Hgb 11.2 L 10.3 L Hct 34.7 L 32.0 L MCV 101.5 H 103.6 H MCH 32.7 33.3 H MCHC 32.3 32.2 RDW 13.3 13.2 Plt Count 170 217 D MPV 11.0 10.6 Immature Gran % (Auto) 0.2 0.2 Neut % (Auto) 66.2 67.6 Lymph % (Auto) 19.8 L 17.8 L [place] % (Auto) 8.5 9.2 Eos % (Auto) 4.4 H 4.3 H Baso % (Auto) 0.9 0.9 Lymph # (Auto) 1.1 L 1.0 L [place] # (Auto) 0.5 0.5 Eos # (Auto) 0.3 0.3 Baso # (Auto) 0.1 0.1 Abs Immat Gran (auto) 0.01 0.01 Absolute Neuts (auto) 3.7 3.9 Absolute Nucleated RBC 0.000 0.000 Nucleated RBC % (auto) 0.0 0.0 Sodium 142 139 Potassium 4.4 3.5 D Chloride 111 H 109 H Carbon Dioxide 23 18 L Anion Gap 12 16 BUN 20 H 13 Creatinine 0.81 0.55 Estim Creat Clear Calc 43.5 63.5 Estimated GFR > 60 > 60 Random Glucose 105 76 Fasting Glucose 76 Calcium 9.3 8.2 L D Total Bilirubin 0.3 AST 14 ALT < 5 Alkaline Phosphatase 176 H Total Protein 6.0 L Albumin 3.9 Urine Color Yellow Urine Appearance Turbid Urine pH 6.5 Ur Specific [place] 1.020 Urine Protein Negative Urine Glucose (UA) Negative Urine Ketones Negative Urine Blood Negative Urine Nitrite Positive H Ur Leukocyte Esterase Small (1+) H Urine RBC 0-2 Urine WBC 0-5 Ur Squamous Epith Cells 0-2 Urine Bacteria 4+ Hyaline Casts 0-2 07/26/23 06:03 WBC 5.3 RBC 3.33 L Hgb 11.0 L Hct 33.8 L MCV 101.5 H MCH 33.0 MCHC 32.5 RDW 13.0 Plt Count 241 MPV 11.1 Immature Gran % (Auto) 0.4 Neut % (Auto) 70.8 Lymph % (Auto) 15.8 L [place] % (Auto) 9.6 Eos % (Auto) 2.6 Baso % (Auto) 0.8 Lymph # (Auto) 0.8 L [place] # (Auto) 0.5 Eos # (Auto) 0.1 Baso # (Auto) 0.0 Abs Immat Gran (auto) 0.02 Absolute Neuts (auto) 3.8 Absolute Nucleated RBC 0.000 Nucleated RBC % (auto) 0.0 Sodium 143 Potassium 3.5 Chloride 110 H Carbon Dioxide 25 Anion Gap 12 BUN 13 Creatinine 0.66 Estim Creat Clear Calc 52.9 Estimated GFR > 60 Random Glucose Fasting Glucose 76 Calcium 9.0 D Total Bilirubin AST ALT Alkaline Phosphatase Total Protein Albumin Urine Color Urine Appearance Urine pH Ur Specific [place] Urine Protein Urine Glucose (UA) Urine Ketones Urine Blood Urine Nitrite Ur Leukocyte Esterase Urine RBC Urine WBC Ur Squamous Epith Cells Urine Bacteria Hyaline Casts Airway Mallampati Class: II TM Dist: >3cm Neck ROM: Full Denture: Upper and Lower Heart: [id number] Lungs: cta b/l Assessment and Plan Assessment Anesthesia Assessment: Anesthesia Plan Discussed and Chart Reviewed Final Anesthetic Review Family History of Problems with Anesthesia: No History of Problems with Anesthesia: No NPO: Yes ASA Class: III Final Preanesthetic Review: No Changes in Pt Med Stat, Meds/Allgs Chart Reviewed, Consent Obtained/Reviewed and Anes Risks/Benef Reviewed Patient Risk: Intermediate Procedure Risk: Intermediate Assessment/Block/Sedation in SS: Assess/Block/Sedation-SS Anesthetic Plan Anesthetic Plan: GA and Agree w/ Assess. and Plan Disposition: Standard PACU
--- NOTE | 2023-07-26 07:26 | MHC.SHP ---
Pre-Procedural Eval Section A Date of Service: 07/26/23 The patient is an INPATIENT: Yes Changes since office visit: No Cold of Flu in the past 2 weeks, No New Medical Problems, No Changes in Medication and No Patient answered all questions The History & Physical has been completed within 30 days and I have reviewed it.: Yes Section B Chief Complaint: right femur fx Allergies: Allergies Allergy/AdvReac Type Severity Reaction Status Date / Time alendronate sodium AdvReac Unknown Unknown Verified 07/22/23 20:43 [From Fosamax] Plan I have reviewed the history and physical and performed a pertinent physical examination on my patient. No changes have occurred unless specified. Time Spent With Patient Time: Total time managing care of this patient today ____ minutes.
--- NOTE | 2023-07-26 08:15 | PM.OP ---
Brief Operative Note Date of Service: 07/26/23 Pre-op diagnosis: right femur fracture Post-op diagnosis: same Procedure: internal fixation right femur fracture Implants: Aubrey Distal femoral interlocking screws x 2 Surgeon: Ben Giraldo MD Anesthesia: GETA and local Was an Land Surveying Party Chief used for this Procedure?: Yes Land Surveying Party Chief: Fermin Rodriguez Estimated blood loss (mL): 10 IV fluids (mL): 500 Pathology: none sent Condition: stable Disposition: PACU
--- NOTE | 2023-07-26 09:28 | HO.PM.IMPN ---
Subjective Subjective Date of Service: 07/26/23 Review of Systems Follow up hip fracture having hallucinations, acute on chronic Physical Exam Vital Signs: Vital Signs: Last Vital Signs Temp 97.8 F 07/26/23 08:55 Pulse 86 07/26/23 08:55 Resp 16 07/26/23 08:55 BP 143/66 H 07/26/23 08:55 Pulse Ox 99 07/26/23 08:55 O2 Del Method Room Air 07/26/23 08:55 O2 Flow Rate 2 07/26/23 08:40 BMI result Body Mass Index 20.3 Appearing in no acute distress lung sounds are clear to auscultation heart regular rate rhythm, clear S1, S2 positive bowel sounds, abdomen is soft, nontender neuro patient is alert, confused Objective Data Active Medications Acetaminophen (Acetaminophen 325 Mg Tablet) 650 mg PO Q4H PRN PRN Reason: Pain, Mild (Pain Scale 1-3) Last Admin: 07/24/23 00:01 Dose: 650 mg Documented By: JOHN Ascorbic Acid (Ascorbic Acid 500 Mg Tablet) 500 mg PO DAILY [facility] Last Admin: 07/25/23 10:23 Dose: 500 mg Documented By: AMY Cyanocobalamin (Cyanocobalamin (Vitamin B-12) 1,000 Mcg Tablet) 1,000 mcg PO DAILY [facility] Last Admin: 07/25/23 10:22 Dose: 1,000 mcg Documented By: AMY Ferrous Sulfate (Ferrous Sulfate 324 Mg Tablet.Dr) 324 mg PO DAILY [facility] Last Admin: 07/25/23 10:23 Dose: 324 mg Documented By: AMY Cefazolin Sodium/Dextrose (Ancef) 2 gm in 50 mls @ 100 mls/hr IV POSTOP [facility] Levothyroxine Sodium (Levothyroxine Sodium 75 Mcg Tablet) 75 mcg PO DAILY@0600 [facility] Last Admin: 07/26/23 06:41 Dose: Not Given Documented By: GERMAINE Non-Admin Reason: NPO, surgery this AM Lorazepam (Lorazepam 2 Mg/Ml Vial) 0.25 mg IVPUSH Q6H PRN PRN Reason: anxiety/restlessness Last Admin: 07/25/23 21:28 Dose: 0.25 mg Documented By: GERMAINE Pt Own : (Carbidopa- Levodopa [Rytary] 23 .75-95 Mg Capsule, Extended Releas 3 cap PO BID@1200,1800 [facility] Last Admin: 07/25/23 17:51 Dose: 3 cap Documented By: AMY Pt Own (Carbidopa- Levodopa [Rytary] 23 .75-95 Mg Capsule, Extended Releas 4 cap PO DAILY@0800 [facility] Last Admin: 07/25/23 10:23 Dose: 4 cap Documented By: AMY Pt Own : ( Pimavanserin [ Nuplazid] 34 Mg Capsule) 34 mg PO DAILY [facility] Last Admin: 07/25/23 13:11 Dose: Not Given Documented By: AMY Non-Admin Reason: Med Not Available Oxycodone HCl (Oxycodone Hcl Immed Release 5 Mg Tablet) 5 mg PO Q6H PRN PRN Reason: Pain, Moderate(Pain Scale 4-6) Last Admin: 07/25/23 15:56 Dose: 5 mg Documented By: AMY Selegiline HCl (Selegiline Hcl 5 Mg Capsule) 5 mg PO BID@0800,1200 [facility] Last Admin: 07/25/23 13:42 Dose: 5 mg Documented By: AMY Sodium Chloride (0.9 % Sodium Chloride Flush 3 Ml Syringe) 3 ml IVFLUSH QSHIFT [facility] Last Admin: 07/25/23 21:21 Dose: 3 ml Documented By: GERMAINE Vitamin D (Cholecalciferol (Vitamin D3) 25 Mcg Tablet) 50 mcg PO DAILY [facility] Last Admin: 07/25/23 10:23 Dose: 50 mcg Documented By: AMY Labs 07/26/23 06:03 07/26/23 06:03 Labs: Laboratory Results - last 24 hr 07/26/23 06:03 MCV 101.5 H MCH 33.0 MCHC 32.5 RDW 13.0 Plt Count 241 MPV 11.1 Immature Gran % (Auto) 0.4 Neut % (Auto) 70.8 Lymph % (Auto) 15.8 L [place] % (Auto) 9.6 Eos % (Auto) 2.6 Baso % (Auto) 0.8 Lymph # (Auto) 0.8 L [place] # (Auto) 0.5 Eos # (Auto) 0.1 Baso # (Auto) 0.0 Abs Immat Gran (auto) 0.02 Absolute Neuts (auto) 3.8 Absolute Nucleated RBC 0.000 Nucleated RBC % (auto) 0.0 Anion Gap 12 Estim Creat Clear Calc 52.9 Estimated GFR > 60 Fasting Glucose 76 Calcium 9.0 D Microbiology Microbiology Results: Microbiology 07/24/23 Unknown Urine Culture - Final Urine clean catch - Clean Catch Midstream Escherichia coli Assessment and Plan (1) Nancy-prosthetic femoral shaft fracture: Status: Acute Plan This is an 83 year old female with history of parkinson's disease, gait instability, hypothyroidism, recent admission for right hip fracture s/p IMN in May who presented to the ED after mechanical fall found to have spiral fx of the right right femur Right femur fracture around the right IMN Status post internal fixation right femur fracture Pain management heart murmur on exam [place] [facility] [place] with mild Parkinson's disease Having hallucinations, likely exacerbated by surgery, medications and hospitalization continue sinemet, rytary and selegiline (non formulary) hypothyroidism continue levothyroxine dvt ppx - per primary team Attending Dr. Samayoa Time Spent With Patient Time: Total time managing care of this patient today ____ minutes. Quality Stroke Does the patient have a stroke diagnosis?: No VTE Prior VTE?: No VTE Risk Level:: Medical - moderate - high VTE Device Contraindication: N/A - Device Ordered VTE Drug Contraindication: Treatment Not Indicated
[2023-07-26] MEDS: CARBIDOPA LEVODOPA 4 EACH PO (09:39)
[2023-07-26] MEDS: oxyCODONE HCl Immed Release 5 MG TABLET PO (12:55)
--- NOTE | 2023-07-26 15:07 | MHC.CM.PN ---
[facility] declined to offer a bed. Additional referrals have been sent locally. Met with patient. She was notified that 1st+2nd choice do not have a bed to offer. She agreed that additional local referrals should be sent. The plan is to meet with patient to present bed offers tomorrow. DP STR via BLS.
[2023-07-26] MEDS: 0.9 % Sodium Chloride Flush 3 ML SYRINGE IVFLUSH ×2 (17:43→19:21)
[2023-07-26] MEDS: LORazepam 2 MG/ML VIAL 0.25 MG IVPUSH (18:24)
[2023-07-26] MEDS: cefTRIAXone sodium 1 GM in 0.9 % Sodium Chloride 50 ML IV (19:16)
[2023-07-27] MEDS: LORazepam 2 MG/ML VIAL 0.25 MG IVPUSH (01:33)
[2023-07-27 05:17] VITALS: BP 133/71; PULSE 83; RESP 16; TEMP 36.2; O2SAT 97
[2023-07-27] MEDS: Levothyroxine Sodium 75 MCG TABLET PO (05:48)
[2023-07-27 07:59] VITALS: BP 168/81; PULSE 91; RESP 17; TEMP 36.3
--- NOTE | 2023-07-27 08:05 | PM.PNORT ---
Subjective Subjective Date of Service: 07/27/23 Interval history: POD1 s/p distal locking screws. Patient is resting in bed comfortably. No overnight events. Patient allowed to sleep. Physical Exam Vital Signs: Vital Signs: Last Vital Signs Temp 97.1 F 07/27/23 05:17 Pulse 83 07/27/23 05:17 Resp 16 07/27/23 05:17 BP 133/71 07/27/23 05:17 Pulse Ox 97 07/27/23 05:17 O2 Del Method Room Air 07/27/23 05:17 O2 Flow Rate 2 07/26/23 08:40 BMI result Body Mass Index 20.3 Const: General: cooperative, healthy appearing and no acute distress Resp: Effort & Inspection: normal respiratory effort and able to speak in complete sentences Cardio: Rate: regular rate Peripheral pulses: Peripheral pulses 2+ throughout GI: Palpation (GI): Soft to palpation Skin: Lesions: no lesions Rashes: no rashes Extrem: Other: Right lower extremity held in flexion. Dressing is c/d/i. Procedures Date of Service Date of Service: 07/27/23 Progress Note: A&P Assessment and plan (1) Nancy-prosthetic femoral shaft fracture: Status: Acute Assessment and Plan: Continue pain mgmnt Begin Lovenox for dvt ppx begin PT for Right periprosthetic femur fracture - WBAT Dispo planning-Pending PT eval, pain mgmnt (2) Parkinson's disease: Status: Acute Time Spent With Patient Time: Total time managing care of this patient today ____ minutes. Quality Stroke Does the patient have a stroke diagnosis?: No VTE Prior VTE?: No VTE Risk Level:: Medical - moderate - high VTE Device Contraindication: N/A - Device Ordered VTE Drug Contraindication: Treatment Not Indicated
--- NOTE | 2023-07-27 08:23 | HO.POSTANES ---
Post Anesthesia Evaluation Post Anesthesia Evaluation Date of Service: 07/27/23 Vital Signs: Vital Signs Temp Pulse Resp BP Pulse Ox O2 Del Method 07/27/23 07:59 97.4 F 91 17 168/81 H 07/27/23 05:17 97.1 F 83 16 133/71 97 Room Air Anesthesia: General Mental Status: Awake Pain Control: Satisfactory Nausea/Vomiting: None Hydration: Adequate Anesthesia-Related Issues: No Anes. Related Issues
[2023-07-27] MEDS: Enoxaparin Sodium 40 MG/0.4 ML SYRINGE SUBCUT (09:50)
[2023-07-27] MEDS: Cyanocobalamin (Vitamin B-12) 1,000 MCG TABLET 1000 MCG PO (09:50)
[2023-07-27] MEDS: Cholecalciferol (Vitamin D3) 25 MCG TABLET 50 MCG PO (09:50)
[2023-07-27] MEDS: 0.9 % Sodium Chloride Flush 3 ML SYRINGE IVFLUSH (09:50)
[2023-07-27] MEDS: Ferrous Sulfate 324 MG TABLET.DR PO (09:50)
[2023-07-27] MEDS: Ascorbic Acid 500 MG TABLET PO (09:50)
[2023-07-27] MEDS: CARBIDOPA LEVODOPA 4 EACH PO (09:52)
[2023-07-27] MEDS: oxyCODONE HCl Immed Release 5 MG TABLET PO (10:26)
[2023-07-27 10:42] LABS: MANUAL DIFF FLAG NO
[2023-07-27 10:46] VITALS: BP 168/81; PULSE 91
[2023-07-27 10:52] LABS: Basophils Absolute Auto 0.1 X10*3/uL (0.0-0.2); Eosinophils Absolute Auto 0.2 X10*3/uL (0.0-0.4); Eosinophils Percent Auto 4.1 % (0-4); Hematocrit 34.2 % (37.0-47.0); Imm Gran Abs Auto 0.01 X10*3/uL (0.00-0.03); Imm Gran Pct Auto 0.2 % (0.0-0.4); Lymphocytes Absolute Auto 0.8 X10*3/uL (1.2-4.9); Lymphocytes Percent Auto 15.3 % (20-40); Mean Corpuscular HGB Conc 32.2 g/dl (31.0-35.0); Mean Corpuscular Hemoglobin 32.9 pg (27.0-33.0); Mean Corpuscular Volume 102.4 fL (80.0-98.0); Mean Platelet Volume 11.1 fL (9.4-12.3); Monocytes Absolute Auto 0.4 X10*3/uL (0.1-1.2); Neutrophils Absolute Auto 3.5 x10*3/uL (2.0-8.3); Neutrophils Percent Auto 70.4 % (45-73); Platelet Count 238 X10*3/uL (160-400); Red Blood Count 3.34 X10*6/uL (4.20-5.50); Red Cell Distribution Width 13.1 % (11.0-16.0); White Blood Count 4.9 X10*3/uL (4.8-10.8)
--- NOTE | 2023-07-27 10:56 | MHC.CM.PN ---
Addendum entered by Susu Moss 07/27/23 14:26: [facility] has declined the patient for Acute rehab. Spouse has been updated. His 1st choice is [facility] now. A clinical update has been sent to the facility. Original Note: Spoke with Patients re discharge plan. He was informed [facility] declined [facility]. [facility] and [facility] have offered beds. He requested that [facility] Acute rehab be referred. Kalpana is reviewing the clinical documentation. PT + OT recommend STR. CM will follow.
[2023-07-27 11:01] LABS: Anion Gap 10 (12-20); Blood Urea Nitrogen 12 mg/dL (9-16); Carbon Dioxide 26 mmol/L (22-29); Chloride 110 mmol/L (96-108); Creatinine Clr Calc Pharmacy 44.7; Estimated Glomerular Filt Rate > 60; Glucose Fasting 149 mg/dL (60-99); Potassium 3.2 mmol/L (3.3-5.1); Sodium 143 mmol/L (135-145)
--- NOTE | 2023-07-27 11:26 | P.PNIM_ITS ---
Subjective Subjective Date of Service: 07/27/23 Review of Systems Follow up hip fracture having hallucinations, acute on chronic Physical Exam 2 Vital Signs: Vital Signs: Last Vital Signs Temp 97.4 F 07/27/23 07:59 Pulse 91 07/27/23 10:46 Resp 17 07/27/23 07:59 BP 168/81 H 07/27/23 10:46 Pulse Ox 97 07/27/23 05:17 O2 Del Method Room Air 07/27/23 05:17 O2 Flow Rate 2 07/26/23 08:40 BMI result Body Mass Index 20.3 Appearing in no acute distress lung sounds are clear to auscultation heart regular rate rhythm, clear S1, S2 positive bowel sounds, abdomen is soft, nontender neuro patient is alert x3, no focal deficits Right hip surgical incision, dressing intact Objective Data Active Medications Acetaminophen (Acetaminophen 325 Mg Tablet) 650 mg PO Q4H PRN PRN Reason: Pain, Mild (Pain Scale 1-3) Last Admin: 07/24/23 00:01 Dose: 650 mg Documented By: JOHN Ascorbic Acid (Ascorbic Acid 500 Mg Tablet) 500 mg PO DAILY [facility] Last Admin: 07/27/23 09:50 Dose: 500 mg Documented By: RITA Cyanocobalamin (Cyanocobalamin (Vitamin B-12) 1,000 Mcg Tablet) 1,000 mcg PO DAILY [facility] Last Admin: 07/27/23 09:50 Dose: 1,000 mcg Documented By: RITA Enoxaparin Sodium (Enoxaparin Sodium 40 Mg/0.4 Ml Syringe) 40 mg SUBCUT Q24H [facility] Last Admin: 07/27/23 09:50 Dose: 40 mg Documented By: RITA Ferrous Sulfate (Ferrous Sulfate 324 Mg Tablet.) 324 mg PO DAILY [facility] Last Admin: 07/27/23 09:50 Dose: 324 mg Documented By: RITA Ceftriaxone Sodium 1 gm/ (Sodium Chloride) 50 mls @ 100 mls/hr IV Q24H [facility] Last Infusion: 07/26/23 19:59 Dose: Infused Documented By: ANYI Levothyroxine Sodium (Levothyroxine Sodium 75 Mcg Tablet) 75 mcg PO DAILY@0600 [facility] Last Admin: 07/27/23 05:48 Dose: 75 mcg Documented By: ANYI Lorazepam (Lorazepam 2 Mg/Ml Vial) 0.25 mg IVPUSH Q6H PRN PRN Reason: anxiety/restlessness Last Admin: 07/27/23 01:33 Dose: 0.25 mg Documented By: ANYI Pt Own : (Carbidopa- Levodopa [Rytary] 23 .75-95 Mg Capsule, Extended Releas 3 cap PO BID@1200,1800 [facility] Last Admin: 07/26/23 17:50 Dose: 3 cap Documented By: AMY Pt Own (Carbidopa- Levodopa [Rytary] 23 .75-95 Mg Capsule, Extended Releas 4 cap PO DAILY@0800 [facility] Last Admin: 07/27/23 09:52 Dose: 4 cap Documented By: RITA Pt Own : ( Pimavanserin [ Nuplazid] 34 Mg Capsule) 34 mg PO DAILY [facility] Last Admin: 07/27/23 09:51 Dose: 34 mg Documented By: RITA Oxycodone HCl (Oxycodone Hcl Immed Release 5 Mg Tablet) 5 mg PO Q6H PRN PRN Reason: Pain, Moderate(Pain Scale 4-6) Last Admin: 07/27/23 10:26 Dose: 5 mg Documented By: RITA Selegiline HCl (Selegiline Hcl 5 Mg Capsule) 5 mg PO BID@0800,1200 [facility] Last Admin: 07/27/23 09:50 Dose: 5 mg Documented By: RITA Sodium Chloride (0.9 % Sodium Chloride Flush 3 Ml Syringe) 3 ml IVFLUSH QSHIFT [facility] Last Admin: 07/27/23 09:50 Dose: 3 ml Documented By: RITA Vitamin D (Cholecalciferol (Vitamin D3) 25 Mcg Tablet) 50 mcg PO DAILY [facility] Last Admin: 07/27/23 09:50 Dose: 50 mcg Documented By: RITA Labs 07/27/23 10:04 07/27/23 10:04 Labs: Laboratory Results - last 24 hr 07/27/23 10:04 MCV 102.4 H MCH 32.9 MCHC 32.2 RDW 13.1 Plt Count 238 MPV 11.1 Immature Gran % (Auto) 0.2 Neut % (Auto) 70.4 Lymph % (Auto) 15.3 L [place] % (Auto) 9.0 Eos % (Auto) 4.1 H Baso % (Auto) 1.0 Lymph # (Auto) 0.8 L [place] # (Auto) 0.4 Eos # (Auto) 0.2 Baso # (Auto) 0.1 Abs Immat Gran (auto) 0.01 Absolute Neuts (auto) 3.5 Absolute Nucleated RBC 0.000 Nucleated RBC % (auto) 0.0 Anion Gap 10 L Estim Creat Clear Calc 44.7 Estimated GFR > 60 Fasting Glucose 149 H Calcium 9.0 Microbiology Microbiology Results: Microbiology 07/24/23 Unknown Urine Culture - Final Urine clean catch - Clean Catch Midstream Escherichia coli Assessment and Plan (1) Nancy-prosthetic femoral shaft fracture: Status: Acute Plan This is an 83 year old female with history of parkinson's disease, gait instability, hypothyroidism, recent admission for right hip fracture s/p IMN in May who presented to the ED after mechanical fall found to have spiral fx of the right right femur Right femur fracture around the right IMN Status post internal fixation right femur fracture Pain management Lovenox for DVT prophylaxis 4 weeks Physical therapy evaluation pending heart murmur on exam ECHO from [facility] [place] 03/2022 with mild Parkinson's disease Having hallucinations, likely exacerbated by surgery, medications and hospitalization continue sinemet, rytary and selegiline (non formulary) hypothyroidism continue levothyroxine dvt ppx - per primary team Attending Dr. Samayoa Medical consultation complete. Will sign off Time Spent With Patient Time: Total time managing care of this patient today ____ minutes. Quality Stroke Does the patient have a stroke diagnosis?: No VTE Prior VTE?: No VTE Risk Level:: Medical - moderate - high VTE Device Contraindication: N/A - Device Ordered VTE Drug Contraindication: Treatment Not Indicated
[2023-07-27 18:00] VITALS: BP 128/61; PULSE 83; RESP 18; TEMP 36.3; O2SAT 98
[2023-07-27] MEDS: cefTRIAXone sodium 1 GM in 0.9 % Sodium Chloride 50 ML IV (18:22)
[2023-07-28] MEDS: LORazepam 2 MG/ML VIAL 0.25 MG IVPUSH ×2 (01:45→21:31)
[2023-07-28] MEDS: Levothyroxine Sodium 75 MCG TABLET PO (05:51)
[2023-07-28 06:00] VITALS: BP 141/85; PULSE 94; RESP 18; TEMP 36.6; O2SAT 96
[2023-07-28 07:41] VITALS: BP 137/63; PULSE 89; RESP 17; TEMP 36.2; O2SAT 99
[2023-07-28] MEDS: Acetaminophen 325 MG TABLET 650 MG PO (08:53)
[2023-07-28] MEDS: Ascorbic Acid 500 MG TABLET PO (08:54)
[2023-07-28] MEDS: Ferrous Sulfate 324 MG TABLET.DR PO (08:54)
[2023-07-28] MEDS: Cholecalciferol (Vitamin D3) 25 MCG TABLET 50 MCG PO (08:54)
[2023-07-28] MEDS: Cyanocobalamin (Vitamin B-12) 1,000 MCG TABLET 1000 MCG PO (08:54)
[2023-07-28] MEDS: 0.9 % Sodium Chloride Flush 3 ML SYRINGE IVFLUSH ×3 (08:55→21:07)
[2023-07-28] MEDS: Enoxaparin Sodium 40 MG/0.4 ML SYRINGE SUBCUT (08:55)
--- NOTE | 2023-07-28 09:08 | PM.PNORT ---
Subjective Subjective Date of Service: 07/28/23 Interval history: POD2 s/p distal locking screws. Patient is resting in bed comfortably. No overnight events. Patient allowed to sleep. Physical Exam Vital Signs: Vital Signs: Last Vital Signs Temp 97.1 F 07/28/23 07:41 Pulse 89 07/28/23 07:41 Resp 17 07/28/23 07:41 BP 137/63 07/28/23 07:41 Pulse Ox 99 07/28/23 07:41 O2 Del Method Room Air 07/28/23 07:41 O2 Flow Rate 2 07/26/23 08:40 BMI result Body Mass Index 20.3 Const: General: cooperative, healthy appearing and no acute distress Resp: Effort & Inspection: normal respiratory effort and able to speak in complete sentences Cardio: Rate: regular rate Peripheral pulses: Peripheral pulses 2+ throughout GI: Palpation (GI): Soft to palpation Skin: Lesions: no lesions Rashes: no rashes Extrem: Other: Right lower extremity held in flexion. Dressing is c/d/i. Procedures Date of Service Date of Service: 07/28/23 Progress Note: A&P Assessment and plan (1) Nancy-prosthetic femoral shaft fracture: Status: Acute Assessment and Plan: Continue pain mgmnt Lovenox for dvt ppx PT for Right periprosthetic femur fracture - WBAT Dispo planning-rehab placement Time Spent With Patient Time: Total time managing care of this patient today ____ minutes. Quality Stroke Does the patient have a stroke diagnosis?: No VTE Prior VTE?: No VTE Risk Level:: Medical - moderate - high VTE Device Contraindication: N/A - Device Ordered VTE Drug Contraindication: Treatment Not Indicated
[2023-07-28 09:15] VITALS: BP 137/63; PULSE 89; O2SAT 99
[2023-07-28] MEDS: CARBIDOPA LEVODOPA 4 EACH PO (10:21)
--- NOTE | 2023-07-28 11:58 | MHC.CM.PN ---
Patient has been accepted at [facility]. They anticipate accepting her tomorrow. The roomate tested covid+. They are not able to accept her today. DP [facility] via BLS , likely tomorrow.
[2023-07-28 15:23] VITALS: BP 136/67; PULSE 93; RESP 16; TEMP 36.4; O2SAT 97
[2023-07-28] MEDS: cefTRIAXone sodium 1 GM in 0.9 % Sodium Chloride 50 ML IV (18:37)
[2023-07-29] MEDS: LORazepam 2 MG/ML VIAL 0.25 MG IVPUSH ×2 (04:25→17:26)
[2023-07-29] MEDS: Levothyroxine Sodium 75 MCG TABLET PO (05:02)
[2023-07-29 06:00] VITALS: BP 157/78; PULSE 90; RESP 16; TEMP 36.7; O2SAT 96
[2023-07-29] MEDS: Cyanocobalamin (Vitamin B-12) 1,000 MCG TABLET 1000 MCG PO (09:02)
[2023-07-29] MEDS: Enoxaparin Sodium 40 MG/0.4 ML SYRINGE SUBCUT (09:02)
[2023-07-29] MEDS: 0.9 % Sodium Chloride Flush 3 ML SYRINGE IVFLUSH ×2 (09:03→16:12)
[2023-07-29] MEDS: Cholecalciferol (Vitamin D3) 25 MCG TABLET 50 MCG PO (09:03)
[2023-07-29] MEDS: Acetaminophen 325 MG TABLET 650 MG PO (09:03)
[2023-07-29] MEDS: Ascorbic Acid 500 MG TABLET PO (09:03)
[2023-07-29] MEDS: Ferrous Sulfate 324 MG TABLET.DR PO (09:03)
[2023-07-29] MEDS: CARBIDOPA LEVODOPA 4 EACH PO (09:55)
[2023-07-29 10:17] VITALS: BP 157/78; PULSE 90; O2SAT 96
[2023-07-29 10:30] LABS: MANUAL DIFF FLAG NO
[2023-07-29 10:36] LABS: Basophils Percent Auto 0.6 % (0-2); Eosinophils Absolute Auto 0.2 X10*3/uL (0.0-0.4); Eosinophils Percent Auto 3.2 % (0-4); Hematocrit 35.1 % (37.0-47.0); Hemoglobin 11.3 g/dl (12.0-16.0); Imm Gran Abs Auto 0.03 X10*3/uL (0.00-0.03); Imm Gran Pct Auto 0.6 % (0.0-0.4); Lymphocytes Percent Auto 20.2 % (20-40); Mean Corpuscular HGB Conc 32.2 g/dl (31.0-35.0); Mean Corpuscular Hemoglobin 32.8 pg (27.0-33.0); Mean Platelet Volume 10.4 fL (9.4-12.3); Monocytes Absolute Auto 0.5 X10*3/uL (0.1-1.2); Monocytes Percent Auto 10.4 % (2-11); Neutrophils Absolute Auto 3.3 x10*3/uL (2.0-8.3); Platelet Count 222 X10*3/uL (160-400); Red Blood Count 3.44 X10*6/uL (4.20-5.50)
[2023-07-29 11:13] LABS: Anion Gap 10 (12-20); Blood Urea Nitrogen 12 mg/dL (9-16); Calcium 9.2 mg/dL (8.4-10.2); Carbon Dioxide 26 mmol/L (22-29); Chloride 110 mmol/L (96-108); Creatinine Clr Calc Pharmacy 50.6; Estimated Glomerular Filt Rate > 60; Glucose Random 96 mg/dL (60-115); Potassium 3.3 mmol/L (3.3-5.1); Sodium 143 mmol/L (135-145)
--- NOTE | 2023-07-29 12:47 | PM.DS ---
DS: Providers Provider Date of Service: 07/29/23 Date of admission: 07/23/23 15:16 Primary care physician: Omar Siu MD Consults: 07/24/23 07:57 Consult to Hospitalist Routine Comment: Consulting Provider: Hospitalist Reason For Exam: routine medical management DS: Diagnosis Discharge Diagnosis (1) Nancy-prosthetic femoral shaft fracture: Status: Acute DS: Summary Hospital Course Hospital Course: The patient underwent a successful ORIF right distal femur, was transferred to PACU and then to the floor to recover. During their stay, their vitals were stable, afebrile at 98.0 . Labs were unremarkable, H/H 11.3/35.1 . POD 1 she was started on Lovenoxfor DVT ppx, they also received Physical Therapy services twice a day. Physical therapy should include gait training, ROM to tolerance and strength. HHe is WBAT. Prior to discharge, bandage clean dry and intact. Ok to perform dry dressing changes as needed. The plan is to be discharged to [facility]. Time Spent with Patient Time attestation: Total time managing care of this patient today ____ minutes. Discharge coordination time: Less than 30 minutes Quality: Safe Use of Opioids Does Pt have an Active Cancer Diagnosis on the Problem List?: No Quality: Stroke Does the patient have a stroke diagnosis?: No Physical Exam Vital Signs: Vital Signs: Last Vital Signs Temp 98.0 F 07/29/23 06:00 Pulse 90 07/29/23 10:17 Resp 16 07/29/23 06:00 BP 157/78 H 07/29/23 10:17 Pulse Ox 96 07/29/23 10:17 O2 Del Method Room Air 07/29/23 06:00 O2 Flow Rate 2 07/26/23 08:40 BMI result Body Mass Index 20.3 Const: General: cooperative, healthy appearing and no acute distress Resp: Effort & Inspection: normal respiratory effort and able to speak in complete sentences Cardio: Rate: regular rate Peripheral pulses: Peripheral pulses 2+ throughout GI: Palpation (GI): Soft to palpation Skin: Lesions: no lesions Rashes: no rashes Extrem: Other: Right lower extremity held in flexion. Dressing is c/d/i. DS: Data Data Completed and Pending Completed studies during hospitalization [Text1]: Procedures Reposition Right Upper Femur with Intramedullary Internal Fixation Device, Percutaneous Approach (05/26/23) Transfusion of Nonautologous Red Blood Cells into Peripheral Vein, Percutaneous Approach (05/26/23) Labs on day of discharge: Laboratory Results - last 24 hr 07/29/23 10:18 WBC 5.0 RBC 3.44 L Hgb 11.3 L Hct 35.1 L MCV 102.0 H MCH 32.8 MCHC 32.2 RDW 13.0 Plt Count 222 MPV 10.4 Immature Gran % (Auto) 0.6 H Neut % (Auto) 65.0 Lymph % (Auto) 20.2 [place] % (Auto) 10.4 Eos % (Auto) 3.2 Baso % (Auto) 0.6 Lymph # (Auto) 1.0 L [place] # (Auto) 0.5 Eos # (Auto) 0.2 Baso # (Auto) 0.0 Abs Immat Gran (auto) 0.03 Absolute Neuts (auto) 3.3 Absolute Nucleated RBC 0.000 Nucleated RBC % (auto) 0.0 Sodium 143 Potassium 3.3 Chloride 110 H Carbon Dioxide 26 Anion Gap 10 L BUN 12 Creatinine 0.69 Estim Creat Clear Calc 50.6 Estimated GFR > 60 Random Glucose 96 Calcium 9.2 Discharge Plan Discharge Anticipated Discharge Date/Time: 07/29/23 09:07 Patient Disposition: Xfer [facility] Discharge Diagnosis: Right femur fx Referrals: Alina Oliveira PA-C [Physician Chainstitch Zipper Setter] - 08/11/23 3:00 pm (08/11 at 3pm ) Discharge Medications: New enoxaparin 40 mg/0.4 mL Syringe 40 mg subcut Q24H 42 Days Qty: 16.8 0RF Continued selegiline HCl 5 mg tablet 5 mg PO BID 30 Days Qty: 60 6RF Nuplazid 34 mg capsule 34 mg PO DAILY 30 Days Qty: 30 6RF Rytary 23.75-95 mg capsule, extended release 3 cap PO BID@1200,1800 Rytary 23.75-95 mg capsule, extended release 4 cap PO DAILY@0800 ferrous sulfate 324 mg (65 mg iron) Tablet,Delayed Release (Dr/Ec) 324 mg PO DAILY Qty: 30 0RF acetaminophen 325 mg Tablet 650 mg PO TID ascorbic acid (vitamin C) 500 mg Tablet 500 mg PO DAILY cholecalciferol (vitamin D3) 50 mcg (2,000 unit) capsule 50 mcg PO DAILY levothyroxine 75 mcg tablet 75 mcg PO DAILY@0600 mecobalamin (vitamin B12) 1,000 mcg tablet,chewable 1,000 mcg PO DAILY Discharge Orders: Discharge Order (Routine); Ordered 07/29/23 Ordered By: Fermin Rodriguez Diet: Regular diet Activity on Discharge: Use cane or walker Stand Alone Forms: Patient Portal Discharge page Care Plan Goals: . Health Concerns: Restore function of joint Plan of Treatment: Physical Therapy Pain management DVT prophylaxis Assessment: Gait training, strengthening, ADLs Continue lovenox for dvt ppx 6weeks Keep dressing clean,dry and intact-no showering or tub baths Follow up with Orthopedics in 2 weeks
--- NOTE | 2023-07-29 14:18 | MHC.CM.PN ---
CM MET WITH PT AND MULTIPLE TIMES THROUGH THE DAY THEY HAD TWO BED OFFERS, [facility] AND [facility] AFTER SOME DISCUSSION, THEY REPORTED [facility] THE PREFERRED SNF TRANSPORT ARRANGED FOR 1700 HOURS VIA [facility]
[2023-07-29 18:00] VITALS: BP 166/88; PULSE 91; RESP 20; TEMP 37; O2SAT 99
--- NOTE | 2023-08-02 09:50 | P.OP_ITS ---
Operative Note Operative Note Date of Service: 07/26/23 Narrative: Date of Service: 07/26/23 Pre-op diagnosis: right femur fracture Post-op diagnosis: same Procedure: internal fixation right femur fracture Implants: Aubrey Distal femoral interlocking screws x 2 Surgeon: Ben Giraldo MD Anesthesia: GETA and local Was an Street Light Servicer used for this Procedure?: Yes Street Light Servicer: Fermin Rodriguez Estimated blood loss (mL): 10 IV fluids (mL): 500 Pathology: none sent Condition: stable Disposition: PACU Procedure in detail: Patient was brought to the operating room and prepped and draped in standard sterile fashion. Time-out was called to identify proper site procedure proper surgeon and IV antibiotics per weight were administered. She was positioned on the fracture table and a traction and slight internal rotation were performed and biplanar fluoroscopy confirmed initial fracture reduction. Two stab incisions were made over the distal aspect opf the femur. Using perfect qawalangin technique 2 distal interlocking screws were placed without difficulty. Biplanar fluoro was used to confirm hardware and fracture position. I was satisfied with the stability of the fracture and the hardware position. Local was injected around the incision and a layered closure with shantelle on the skin was performed. Patient was awakened from anesthesia and brought to the recovery room in stable condition. There were no known complications.
== END 2023-07-29 18:31 | disposition skilled nursing facility (03) | DRG 482 ==
LOC: HO.ED 23:48 → HO.EDOVER 07-23 17:23 → HO.S3 07-24 18:38
PROVIDERS: Orthopaedic Surgery; Physician Assistant; Admitting Provider Physician Assistant; Emergency Provider Emergency Medicine; PCP Family Medicine; Visit Provider Physician Assistant
PROC: 0QSB36Z Reposition Right Lower Femur with Intramedullary Internal Fixation Device, Percutaneous Approach (ICD-10-PCS; principal; 2023-07-26 07:30)
DX: S72.491A Other fracture of lower end of right femur, initial encounter for closed fracture (principal); W19.XXXA Unspecified fall, initial encounter; F02.80 Dementia in other diseases classified elsewhere, unspecified severity, without behavioral disturbance, psychotic disturbance, mood disturbance, and anxiety; E03.9 Hypothyroidism, unspecified; I35.0 Nonrheumatic aortic (valve) stenosis; G20 Parkinson's disease; Z87.891 Personal history of nicotine dependence; Z79.890 Hormone replacement therapy; Z79.899 Other long term (current) drug therapy
CPT/HCPCS: 36415; 72170; 73552; 80048; 80053; 81001; 85025; 85027; 87086; 87088; 87186; 97162; 97166; 97530; 99285; C1713; J0690; J0696; J1650; J2060; J2371; J2405; J2795; J3010

== ENCOUNTER → 2023-07-23 15:16 | Outpatient (BNV) | payer MEDICARE, OTHER, SELFPAY | PROVIDERS: Admitting Provider Physician Assistant; Emergency Provider Emergency Medicine; PCP Family Medicine; Visit Provider Physician Assistant Medical | DX: M97.8XXA Periprosthetic fracture around other internal prosthetic joint, initial encounter (principal); Z96.641 Presence of right artificial hip joint | CPT/HCPCS: 99223; 99232 ==

== ENCOUNTER → 2023-07-23 15:16 | Outpatient (BNV) | payer MEDICARE, OTHER, SELFPAY | PROVIDERS: Admitting Provider Physician Assistant; Emergency Provider Emergency Medicine; PCP Family Medicine; Visit Provider Physician Assistant | DX: M97.8XXA Periprosthetic fracture around other internal prosthetic joint, initial encounter (principal); Z96.649 Presence of unspecified artificial hip joint | CPT/HCPCS: 27509; 99024; 99212; 99231; 99499 ==

== ENCOUNTER 2023-08-10 01:47 | Inpatient (IN) | payer MEDICARE, OTHER, SELFPAY ==
[2023-08-10] VITALS (8 sets, daily range): BP systolic 115–157; BP diastolic 55–91; PULSE 74–102; RESP 11–18; TEMP 36.1–36.7; O2SAT 97–100; BMI 21.0
--- NOTE | ~2023-08-10 | XR_ITS ---
EXAMINATION: XR FEMUR, RIGHT CLINICAL INFORMATION: Follow-up intramedullary nail COMPARISON: 07/22/2023 TECHNIQUE: AP and lateral views of the right femur were obtained. FINDINGS: No change in hardware position when compared to previous. No evidence for hardware failure. Once again fracture seen in the distal femur. Screws are seen through the distal part of the prosthesis. Good visual result. XR/XR femur RT 2V IMPRESSION: Hardware in place. Good visual result. No acute finding.
--- NOTE | 2023-08-10 02:46 | ED.AMS ---
HPI - Altered Mental Status General Chief Complaint: Altered Mental Status Stated Complaint: ams Time Seen by Provider: 08/10/23 02:45 Source: family (, Bill) Mode of arrival: EMS Limitations: no limitations History of Present Illness HPI narrative: 83 year old female with history of parkinson's disease, gait instability, hypothyroidism, recent admission for right hip fracture s/p IMN in May and then presented with spiral fx of the right right femur 07/25/2023 status post internal fixation, discharged 07/27/2023 to senior living facility. According to her , patient has not been able to participate in rehab in yesterday was the 1st day that she was able to stand. According to nursing notes, the patient became more confused yesterday afternoon, she was making repetitive statements, she became aggressive and was fighting with the staff therefore she was transferred to the emergency department for evaluation. Related Data Home Medications Medication Instructions Recorded Confirmed cholecalciferol (vitamin D3) 50 50 mcg PO DAILY 01/19/22 07/22/23 mcg (2,000 unit) capsule levothyroxine 75 mcg tablet 75 mcg PO DAILY@0600 01/19/22 07/22/23 mecobalamin (vitamin B12) 1,000 1,000 mcg PO DAILY 04/05/23 07/22/23 mcg chewable tablet carbidopa ER 23.75 mg-levodopa 95 3 cap PO BID@1200,1800 05/26/23 07/22/23 mg capsule,extended release (Rytary) carbidopa ER 23.75 mg-levodopa 95 4 cap PO DAILY@0800 05/26/23 07/22/23 mg capsule,extended release (Rytary) acetaminophen 325 mg tablet 650 mg PO TID 07/22/23 07/22/23 ascorbic acid (vitamin C) 500 mg 500 mg PO DAILY 07/22/23 07/22/23 tablet Previous Rx's Medication Instructions Recorded selegiline HCl 5 mg tablet 5 mg PO BID 30 days #60 tabs 01/27/23 ferrous sulfate 324 mg (65 mg 324 mg PO DAILY #30 tabs 05/31/23 iron) tablet,delayed release pimavanserin 34 mg capsule 34 mg PO DAILY 30 days #30 caps 07/22/23 (Nuplazid) enoxaparin 40 mg/0.4 mL 40 mg (0.4 mL) subcut Q24H 42 days 07/29/23 subcutaneous syringe #16.8 mL Allergies Allergy/AdvReac Type Severity Reaction Status Date / Time alendronate sodium AdvReac Unknown Unknown Verified 07/22/23 20:43 [From Fosamax] Review of Systems Review of Systems: Yes all other systems are reviewed and are negative [facility] Past Medical History Medical History Aortic stenosis, mild Hypothyroidism Parkinson's disease Surgical History Hx of colonoscopy History of hand surgery History of total hip replacement Family History Family History Sister AAA (abdominal aortic aneurysm) Social History Social History Household Members: Spouse Housing: House Do you presently have visiting nurse or other home services: Yes Alcohol intake: current Alcohol intake frequency: does not drink Alcohol type: hard liquor Patient Tobacco Use Status: Former Tobacco user Tobacco use type: Cigarette Cigarettes Per Day: 4 Years Smoked: 35 Second Hand Smoke Exposure: No Advance Directives: No Advance Directives Information Provided: No service: No Current occupational status: retired and disabled 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 Physical Exam ED Vital Signs: Vital Signs - 24 hr 08/10/23 01:55 Temperature 98.0 F Pulse Rate 102 H Respiratory Rate 15 Pulse Oximetry 98 Oxygen Delivery Method Room Air BMI result Body Mass Index 21.0 Vital signs revealed an elevated pulse of 102 otherwise were unremarkable Exam: General: Awake, alert, oriented to person, she is aware that she is in a hospital, able identify objects without any difficulty, patient is combative and is aggressive with the nursing staff Head: Normocephalic, atraumatic EENT: PERRL, Lids normal, sclera normal, conjunctiva normal, nose normal , ears normal, throat without erythema or exudates Neck: Supple, no adenopathy, trachea midline and nontender Lung: breath sounds symmetric, no wheezing, rales or rhonchi Chest: symmetric movement, nontender Heart: regular rate and rhythm, normal S1, S2, 3/6 systolic murmur best heard at the right upper sternal border Abdomen: soft, non-tender, nondistended, normal bowel sounds Back: no vertebral tenderness, no CVAT Extremities: no deformities, patient has a dressing over her right lateral distal femur, she has difficulty moving the extremity secondary to pain Skin: no rashes, no lesion, normal color and warmth Neuro: Awake, alert, oriented, normal speech, cranial nerves intact Psych: Awake, alert, combative Medications Administered Discontinued Medications Generic Name Dose Route Start Last Admin Trade Name Darion PRN Reason Stop Dose Admin Haloperidol Lactate 5 mg 08/10/23 03:18 08/10/23 03:23 Haloperidol Lactate 5 Mg/Ml Vial IM 08/10/23 03:19 5 mg STAT STA Administration Sodium Chloride 1,000 mls @ 999 mls/hr 08/10/23 03:01 08/10/23 04:01 Ns IV 08/10/23 04:01 999 mls/hr .Q1H1M STA Administration Ceftriaxone Sodium 1 gm/ 50 mls @ 100 mls/hr 08/10/23 03:11 08/10/23 04:01 Sodium Chloride IV 08/10/23 03:40 100 mls/hr ONCE ONE Administration Lorazepam 1 mg 08/10/23 03:01 08/10/23 04:02 Lorazepam 1 Mg Tablet PO 08/10/23 03:02 Not Given ONCE ONE Lorazepam 1 mg 08/10/23 03:18 08/10/23 03:22 Lorazepam 2 Mg/Ml Vial IM 08/10/23 03:19 1 mg ONCE ONE Administration Olanzapine 5 mg 08/10/23 03:01 08/10/23 04:02 Olanzapine 5 Mg Tablet PO 08/10/23 03:02 Not Given ONCE ONE Medical Decision Making Medical Decision Making [facility] Narrative: 83 year old female with history of parkinson's disease, gait instability, hypothyroidism, recent admission for right hip fracture s/p IMN in May and then presented with spiral fx of the right right femur 07/25/2023 status post internal fixation, discharged 07/27/2023 to senior living facility who became more confused and combative yesterday afternoon and prior to coming to emergency department the patient was fighting with nursing staff at the senior living facility. Patient's vital signs were unremarkable and the patient is combative here in the emergency department. Exam is otherwise unremarkable. Following evaluation was ordered: CBC, CMP, lactic acid, urinalysis, blood cultures x2. Patient was ordered to get Zyprexa 5 mg orally and Ativan 1 mg orally for her agitation. 0319: The patient refused oral medications therefore I ordered Haldol 5 mg IM and Ativan 1 mg IM. 0430: Patient did calm down after receiving the above medications and we were able to complete her medical workup. Patient's CBC was normal . Lactic acid was not elevated. Patient's straight cath urine specimen is consistent with urinary tract infection Patient was treated with ceftriaxone 1 g IV. I will discuss admission with the covering hospitalist. Differential Diagnosis Differential Diagnoses: The differential diagnosis associated with the presentation includes 0319: Differential diagnosis includes but is not limited to urinary tract infection, electrolyte abnormality, anemia, dementia Admission/Observation Consideration of admission/observation: Escalation of care including admission/observation considered Consult Healthcare Provider Management of the patient was discussed with: Hospitalist Lab Data MDM Lab Attestation statement: I reviewed the patient's lab results. My interpretation patient's laboratory evaluation as follows: WBC was normal 5700. Patient has chronic macrocytic anemia with an H&H of 10.5 and 31.8. Lactic acid was normal at 0.8. Urinalysis was positive for nitrates and leukocyte esterase. Microscopic revealed 0-2 RBCs, 11-20 WBCs, 0-2 squamous cells, 4+ bacteria. This was a straight cath specimen is consistent with a urinary tract infection. Patient's chloride was elevated 111 BUNs elevated 17. Alk-phos was elevated to 61. 08/10/23 03:51 08/10/23 02:40 Labs: Lab Results 08/10/23 08/10/23 Range/Units 02:40 03:51 WBC 5.7 (4.8-10.8) X10*3/uL RBC 3.21 L (4.20-5.50) X10*6/uL Hgb 10.5 L (12.0-16.0) g/dl Hct 31.8 L (37.0-47.0) % MCV 99.1 H (80.0-98.0) fL MCH 32.7 (27.0-33.0) pg MCHC 33.0 (31.0-35.0) g/dl RDW 12.6 (11.0-16.0) % Plt Count 204 (160-400) X10*3/uL MPV 11.0 (9.4-12.3) fL Immature Gran % (Auto) 0.2 (0.0-0.4) % Neut % (Auto) 74.0 H (45-73) % Lymph % (Auto) 15.3 L (20-40) % [place] % (Auto) 7.2 (2-11) % Eos % (Auto) 2.8 (0-4) % Baso % (Auto) 0.5 (0-2) % Lymph # (Auto) 0.9 L (1.2-4.9) X10*3/uL [place] # (Auto) 0.4 (0.1-1.2) X10*3/uL Eos # (Auto) 0.2 (0.0-0.4) X10*3/uL Baso # (Auto) 0.0 (0.0-0.2) X10*3/uL Abs Immat Gran (auto) 0.01 (0.00-0.03) X10*3/uL Absolute Neuts (auto) 4.2 (2.0-8.3) x10*3/uL Absolute Nucleated RBC 0.000 (0.0-0.012) X10*3/uL Nucleated RBC % (auto) 0.0 (0.0-0.2) /100WBC Lactic Acid 0.8 (0.5-2.0) mmol/L Urine Color Yellow Urine Appearance Clear Urine pH 5.5 (5.0-9.0) Ur Specific [place] 1.025 (1.005-1.025) Urine Protein Negative (Neg-Trace) mg/dL Urine Glucose (UA) Negative (Negative) mg/dL Urine Ketones Trace (Negative) mg/dL Urine Blood Negative (Negative) Urine Nitrite Positive H (Negative) Ur Leukocyte Esterase Small (1+) H (Negative) Urine RBC 0-2 (0-2) /HPF Urine WBC 11-20 (0-5) /HPF Ur Squamous Epith Cells 0-2 (0-2) /HPF Calcium Oxalate Crystal Present Urine Bacteria 4+ (None Seen) Hyaline Casts 0-2 (0-2) /LPF Critical Care Time Critical Care Time Critical Care Time: Yes Total Critical Care Time: 35 Attestation: Critical Care: The patient was critically ill with a high probability of imminent or life threatening deterioration. I spent greater than 30 minutes of discontinuous time evaluating the patient,delivering critical care at the bedside, patient required Haldol and Ativan IM with cardiac and O2 saturation monitoring, discussing and evaluating pertinent data with consultants. Critical care time does not include time spent performing separately billable procedures or teaching. Total time spent performing critical care was 35 minutes. Discharge Plan Discharge Clinical Impression: Encephalopathy due to infection Urinary tract infection Qualifiers: Encounter type: initial encounter Patient Disposition: Admitted As Inpatient Prescriptions: No Action selegiline HCl 5 mg tablet 5 mg PO BID 30 Days Qty: 60 6RF Nuplazid 34 mg capsule 34 mg PO DAILY 30 Days Qty: 30 6RF Rytary 23.75-95 mg capsule, extended release 3 cap PO BID@1200,1800 Rytary 23.75-95 mg capsule, extended release 4 cap PO DAILY@0800 ferrous sulfate 324 mg (65 mg iron) Tablet,Delayed Release (Dr/Ec) 324 mg PO DAILY Qty: 30 0RF acetaminophen 325 mg Tablet 650 mg PO TID ascorbic acid (vitamin C) 500 mg Tablet 500 mg PO DAILY enoxaparin 40 mg/0.4 mL Syringe 40 mg subcut Q24H 42 Days Qty: 16.8 0RF cholecalciferol (vitamin D3) 50 mcg (2,000 unit) capsule 50 mcg PO DAILY levothyroxine 75 mcg tablet 75 mcg PO DAILY@0600 mecobalamin (vitamin B12) 1,000 mcg tablet,chewable 1,000 mcg PO DAILY
[2023-08-10 02:51] LABS: Appearance Urine Clear; Color Urine Yellow; Glucose Urine UA Negative (Negative); Leukocyte Esterase Urine Small (1+) (Negative); Nitrite Urine Positive (Negative); PH 5.5 (5.0-9.0); Specific Gravity - Urine 1.025 (1.005-1.025); UMIC TRIGGER UACC YES; Urine Blood Negative (Negative); Urine Ketones Trace mg/dL (Negative); Urine Protein Negative (Neg-Trace)
[2023-08-10 03:06] LABS: Bacteria Urine 4+ (None Seen); Calcium Oxalate Crystals Urine Present; Hyaline Casts Urine 0-2 /LPF (0-2); RBC Urine 0-2 /HPF (0-2); Squamous Epithelial Cell Urine 0-2 /HPF (0-2); UACC Culture Trigger YES
[2023-08-10] MEDS: LORazepam 2 MG/ML VIAL 1 MG IM (03:22)
[2023-08-10] MEDS: Haloperidol Lactate 5 MG/ML VIAL IM (03:23)
[2023-08-10 03:58] LABS: MANUAL DIFF FLAG NO
[2023-08-10 04:00] LABS: Basophils Percent Auto 0.5 % (0-2); Eosinophils Absolute Auto 0.2 X10*3/uL (0.0-0.4); Eosinophils Percent Auto 2.8 % (0-4); Hematocrit 31.8 % (37.0-47.0); Hemoglobin 10.5 g/dl (12.0-16.0); Imm Gran Abs Auto 0.01 X10*3/uL (0.00-0.03); Imm Gran Pct Auto 0.2 % (0.0-0.4); Lymphocytes Absolute Auto 0.9 X10*3/uL (1.2-4.9); Lymphocytes Percent Auto 15.3 % (20-40); Mean Corpuscular Hemoglobin 32.7 pg (27.0-33.0); Mean Corpuscular Volume 99.1 fL (80.0-98.0); Monocytes Absolute Auto 0.4 X10*3/uL (0.1-1.2); Monocytes Percent Auto 7.2 % (2-11); Neutrophils Absolute Auto 4.2 x10*3/uL (2.0-8.3); Platelet Count 204 X10*3/uL (160-400); Red Blood Count 3.21 X10*6/uL (4.20-5.50); Red Cell Distribution Width 12.6 % (11.0-16.0); White Blood Count 5.7 X10*3/uL (4.8-10.8)
[2023-08-10] MEDS: 0.9 % Sodium Chloride 1,000 ML 999 ML IV (04:01)
[2023-08-10] MEDS: cefTRIAXone sodium 1 GM in 0.9 % Sodium Chloride 50 ML IV ×2 (04:01→21:07)
[2023-08-10 04:21] LABS: Lactic Acid 0.8 mmol/L (0.5-2.0)
[2023-08-10 04:29] LABS: Alanine Aminotransferase < 5 U/L (0-31); Albumin Level 4.2 g/dL (3.5-5.0); Alkaline Phosphatase 261 U/L (39-117); Anion Gap 9 (12-20); Aspartate Amino Transferase 12 U/L (5-31); Bilirubin Total 0.6 mg/dL (0.0-1.0); Blood Urea Nitrogen 17 mg/dL (9-16); Calcium 9.2 mg/dL (8.4-10.2); Carbon Dioxide 23 mmol/L (22-29); Chloride 111 mmol/L (96-108); Creatinine Clr Calc Pharmacy 60.1; Estimated Glomerular Filt Rate > 60; Glucose Random 94 mg/dL (60-115); Potassium 3.9 mmol/L (3.3-5.1); Sodium 139 mmol/L (135-145)
--- NOTE | 2023-08-10 05:35 | PC.NURSE ---
pt wants his to go to [facility] for rehab. States she has been there before and does well there.
[2023-08-10 05:36] LABS: Hematocrit 29.9 % (37.0-47.0); Hemoglobin 9.8 g/dl (12.0-16.0); Mean Corpuscular HGB Conc 32.8 g/dl (31.0-35.0); Mean Corpuscular Hemoglobin 32.9 pg (27.0-33.0); Mean Corpuscular Volume 100.3 fL (80.0-98.0); Mean Platelet Volume 11.3 fL (9.4-12.3); Platelet Count 180 X10*3/uL (160-400); Red Blood Count 2.98 X10*6/uL (4.20-5.50); Red Cell Distribution Width 12.5 % (11.0-16.0); White Blood Count 5.4 X10*3/uL (4.8-10.8)
[2023-08-10 05:51] LABS: Anion Gap 9 (12-20); Blood Urea Nitrogen 14 mg/dL (9-16); Calcium 8.7 mg/dL (8.4-10.2); Carbon Dioxide 20 mmol/L (22-29); Chloride 116 mmol/L (96-108); Estimated Glomerular Filt Rate > 60; Glucose Random 89 mg/dL (60-115); Sodium 141 mmol/L (135-145)
--- NOTE | 2023-08-10 06:50 | P.HPHOSP_ITS ---
History of Present Illness Date of Service: 08/10/23 Chief Complaint: confused, combative This is an 83-year-old female past medical history of Parkinson's disease, hypothyroidism, history of recent right hip fracture status post IM in May as well as followed by mechanical fall that resulted in a spiral fixation of the right femur status post surgery on 07/25, sent to halfway facility on 07/27. She is sent back as patient has been more confused, very combative, and hitting nursing staff at the halfway facility. On arrival to the ED he was also very confused and combative, received Haldol and Ativan. She is currently obtunded, unable to give much history therefore history is obtained mostly from the ED physician. Workup found patient to have BENSON in patient started on antibiotics and will be admitted for further management Vitals otherwise unremarkable Labs show a WBC count of 5.7, labs otherwise unremarkable Review of Systems 2 Review of Systems: Yes all other systems are reviewed and are negative [facility] Medical History Aortic stenosis, mild Hypothyroidism Parkinson's disease Family History Sister AAA (abdominal aortic aneurysm) Surgical History Hx of colonoscopy History of hand surgery History of total hip replacement Social History Household Members: Spouse Housing: House Do you presently have visiting nurse or other home services: Yes Alcohol intake: current Alcohol intake frequency: does not drink Alcohol type: hard liquor Patient Tobacco Use Status: Former Tobacco user Tobacco use type: Cigarette Cigarettes Per Day: 4 Years Smoked: 35 Second Hand Smoke Exposure: No Advance Directives: No Advance Directives Information Provided: No Nutrition Risks: Surgical patient >75years service: No Current occupational status: retired and disabled 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 Allergies Allergy/AdvReac Type Severity Reaction Status Date / Time alendronate sodium AdvReac Unknown Unknown Verified 07/22/23 20:43 [From Fosamax] Active Medications: Current Medications Acetaminophen (Acetaminophen 325 Mg Tablet) 650 mg PO Q6H PRN PRN Reason: Pain, Mild (Pain Scale 1-3) Docusate Sodium (Docusate Sodium 100 Mg Capsule) 100 mg PO DAILY PRN PRN Reason: Constipation Heparin Sodium (Porcine) (Heparin Sodium,Porcine 5,000 Unit/Ml Vial) 5,000 unit SUBCUT Q12H AMY Ceftriaxone Sodium 1 gm/ (Sodium Chloride) 50 mls @ 100 mls/hr IV Q24H [facility] Ondansetron HCl (Ondansetron Hcl 4 Mg/2 Ml Vial) 4 mg IVPUSH Q8H PRN PRN Reason: Nausea and Vomiting Sodium Chloride (0.9 % Sodium Chloride Flush 3 Ml Syringe) 3 ml IVFLUSH QSHIFT [facility] Home Medications Medication Instructions Recorded Confirmed Last Taken Type cholecalciferol (vitamin D3) 50 50 mcg PO DAILY 01/19/22 08/10/23 05/26/23 History mcg (2,000 unit) capsule levothyroxine 75 mcg tablet 75 mcg PO DAILY@0600 01/19/22 08/10/23 05/26/23 History mecobalamin (vitamin B12) 1,000 1,000 mcg PO DAILY 04/05/23 08/10/23 05/26/23 History mcg chewable tablet carbidopa ER 23.75 mg-levodopa 95 3 cap PO BID@1200,1800 05/26/23 08/10/23 05/26/23 History mg capsule,extended release (Rytary) carbidopa ER 23.75 mg-levodopa 95 4 cap PO DAILY@0800 05/26/23 08/10/23 05/26/23 History mg capsule,extended release (Rytary) acetaminophen 325 mg tablet 650 mg PO TID 07/22/23 08/10/23 Unknown History ascorbic acid (vitamin C) 500 mg 500 mg PO DAILY 07/22/23 08/10/23 Unknown History tablet Physical Exam 2 Vital Signs and Narrative: Vital Signs: Last Vital Signs Temp 98.0 F 08/10/23 01:55 Pulse 85 08/10/23 05:41 Resp 13 08/10/23 05:41 BP 118/61 08/10/23 05:41 Pulse Ox 100 08/10/23 05:41 O2 Del Method Room Air 08/10/23 05:41 BMI result Body Mass Index 21.0 Const: Other: Unable to conduct full exam as patient is obtunded and not following direction General: no acute distress Eyes: General: appearance normal, both eyes and all related structures Resp: Effort & Inspection: normal respiratory effort Cardio: Rate: regular rate Rhythm: regular rhythm GI: Palpation (GI): Soft to palpation Skin: General skin exam: no rashes or lesions noted Extrem: General: Yes normal to inspection and Yes no pedal edema Results Labs 08/10/23 05:27 08/10/23 05:27 Labs: Laboratory Results - last 24 hr 08/10/23 08/10/23 08/10/23 02:40 03:51 05:27 MCV 99.1 H 100.3 H MCH 32.7 32.9 MCHC 33.0 32.8 RDW 12.6 12.5 Plt Count 204 180 MPV 11.0 11.3 Immature Gran % (Auto) 0.2 Neut % (Auto) 74.0 H Lymph % (Auto) 15.3 L [place] % (Auto) 7.2 Eos % (Auto) 2.8 Baso % (Auto) 0.5 Lymph # (Auto) 0.9 L [place] # (Auto) 0.4 Eos # (Auto) 0.2 Baso # (Auto) 0.0 Abs Immat Gran (auto) 0.01 Absolute Neuts (auto) 4.2 Absolute Nucleated RBC 0.000 0.000 Nucleated RBC % (auto) 0.0 0.0 Anion Gap 9 L 9 L Estim Creat Clear Calc 60.1 62.0 Estimated GFR > 60 > 60 Random Glucose 94 89 Lactic Acid 0.8 Calcium 9.2 8.7 Total Bilirubin 0.6 AST 12 ALT < 5 Alkaline Phosphatase 261 H Total Protein 6.0 L Albumin 4.2 Urine Color Yellow Urine Appearance Clear Urine pH 5.5 Ur Specific [place] 1.025 Urine Protein Negative Urine Glucose (UA) Negative Urine Ketones Trace Urine Blood Negative Urine Nitrite Positive H Ur Leukocyte Esterase Small (1+) H Urine RBC 0-2 Urine WBC 11-20 Ur Squamous Epith Cells 0-2 Calcium Oxalate Crystal Present Urine Bacteria 4+ Hyaline Casts 0-2 Assessment and Plan (1) Encephalopathy due to infection: Status: Acute (2) Nancy-prosthetic femoral shaft fracture: Status: Acute (3) Acute UTI: Status: Acute Plan Patient is an 83-year-old female past medical history as mentioned above comes into the hospital with confusion encephalopathy # encephalopathy - likely metabolic encephalopathy secondary to acute infection - will treat with antibiotics - follow mentation, does not improve consider head CT # UTI -positive UA - confused, - unable to take p.o. medications due to her encephalopathy - will treat with IV antibiotics - follow cultures # recent femur fracture - will place on heparin subQ for DVT prophylaxis # hypothyroidism - continue levothyroxine # Parkinson's dementia - continue carbidopa levodopa Given patient's need for IV antibiotics patient require minimum 2 nights inpatient hospital stay for further management and monitoring Time Spent With Patient Time: Total time managing care of this patient today ____ minutes. Quality Stroke Does the patient have a stroke diagnosis?: No VTE Prior VTE?: No VTE Risk Level:: Medical - moderate - high VTE Device Contraindication: Treatment Not Indicated VTE Drug Contraindication: N/A - Med Ordered
--- NOTE | 2023-08-10 07:43 | PC.NURSE ---
Initial contact with pt. pt sleeping, on monitor, appears comfortable, no no distress. awaiting dispo to floor.
[2023-08-10] MEDS: Heparin Sodium,Porcine 5,000 UNIT/ML VIAL 5000 UNIT SUBCUT ×2 (09:46→21:08)
--- NOTE | 2023-08-10 11:12 | P.PNIM_ITS ---
Subjective Subjective Date of Service: 08/10/23 Review of Systems Review of Systems: Yes Unobtainable due to mental condition Physical Exam 2 Vital Signs: Vital Signs: Last Vital Signs Temp 98.0 F 08/10/23 01:55 Pulse 82 08/10/23 07:44 Resp 14 08/10/23 07:44 BP 118/61 08/10/23 07:44 Pulse Ox 98 08/10/23 07:44 O2 Del Method Room Air 08/10/23 07:44 BMI result Body Mass Index 21.0 obtunded, heart regular, murmur Objective Data Active Medications Acetaminophen (Acetaminophen 325 Mg Tablet) 650 mg PO Q6H PRN PRN Reason: Pain, Mild (Pain Scale 1-3) Ascorbic Acid (Ascorbic Acid 500 Mg Tablet) 500 mg PO DAILY [facility] Last Admin: 08/10/23 09:45 Dose: Not Given Documented By: MARCOS Non-Admin Reason: See Note Comments: pt too drowsy to tolerate PO meds Cyanocobalamin (Cyanocobalamin (Vitamin B-12) 1,000 Mcg Tablet) 1,000 mcg PO DAILY [facility] Last Admin: 08/10/23 09:45 Dose: Not Given Documented By: MARCOS Non-Admin Reason: See Note Comments: pt too drowsy to tolerate PO meds Docusate Sodium (Docusate Sodium 100 Mg Capsule) 100 mg PO DAILY PRN PRN Reason: Constipation Ferrous Sulfate (Ferrous Sulfate 324 Mg Tablet.Dr) 324 mg PO DAILY [facility] Last Admin: 08/10/23 09:46 Dose: Not Given Documented By: MARCOS Non-Admin Reason: See Note Comments: pt too drowsy to tolerate PO meds Heparin Sodium (Porcine) (Heparin Sodium,Porcine 5,000 Unit/Ml Vial) 5,000 unit SUBCUT Q12H [facility] Last Admin: 08/10/23 09:46 Dose: 5,000 unit Documented By: MARCOS Ceftriaxone Sodium 1 gm/ (Sodium Chloride) 50 mls @ 100 mls/hr IV Q24H [facility] Levothyroxine Sodium (Levothyroxine Sodium 75 Mcg Tablet) 75 mcg PO DAILY@0600 [facility] Non-Formulary Medication (Carbidopa-Levodopa [Rytary]) 3 cap PO BID@1200,1800 [facility] Non-Formulary Medication (Carbidopa-Levodopa [Rytary]) 4 cap PO DAILY@0800 [facility] Non-Formulary Medication (Pimavanserin [Nuplazid]) 34 mg PO DAILY [facility] Ondansetron HCl (Ondansetron Hcl 4 Mg/2 Ml Vial) 4 mg IVPUSH Q8H PRN PRN Reason: Nausea and Vomiting Selegiline HCl (Selegiline Hcl 5 Mg Capsule) 5 mg PO BID@0800,1200 [facility] Last Admin: 08/10/23 09:44 Dose: Not Given Documented By: MARCOS Non-Admin Reason: See Note Comments: pt too drowsy to tolerate PO meds Sodium Chloride (0.9 % Sodium Chloride Flush 3 Ml Syringe) 3 ml IVFLUSH QSHIFT [facility] Last Admin: 08/10/23 09:44 Dose: Not Given Documented By: MARCOS Non-Admin Reason: IV Running Vitamin D (Cholecalciferol (Vitamin D3) 25 Mcg Tablet) 50 mcg PO DAILY [facility] Last Admin: 08/10/23 09:45 Dose: Not Given Documented By: MARCOS Non-Admin Reason: See Note Comments: pt too drowsy to tolerate PO meds Labs 08/10/23 05:27 08/10/23 05:27 Labs: Laboratory Results - last 24 hr 08/10/23 08/10/23 08/10/23 02:40 03:51 05:27 MCV 99.1 H 100.3 H MCH 32.7 32.9 MCHC 33.0 32.8 RDW 12.6 12.5 Plt Count 204 180 MPV 11.0 11.3 Immature Gran % (Auto) 0.2 Neut % (Auto) 74.0 H Lymph % (Auto) 15.3 L [place] % (Auto) 7.2 Eos % (Auto) 2.8 Baso % (Auto) 0.5 Lymph # (Auto) 0.9 L [place] # (Auto) 0.4 Eos # (Auto) 0.2 Baso # (Auto) 0.0 Abs Immat Gran (auto) 0.01 Absolute Neuts (auto) 4.2 Absolute Nucleated RBC 0.000 0.000 Nucleated RBC % (auto) 0.0 0.0 Anion Gap 9 L 9 L Estim Creat Clear Calc 60.1 62.0 Estimated GFR > 60 > 60 Random Glucose 94 89 Lactic Acid 0.8 Calcium 9.2 8.7 Total Bilirubin 0.6 AST 12 ALT < 5 Alkaline Phosphatase 261 H Total Protein 6.0 L Albumin 4.2 Urine Color Yellow Urine Appearance Clear Urine pH 5.5 Ur Specific [place] 1.025 Urine Protein Negative Urine Glucose (UA) Negative Urine Ketones Trace Urine Blood Negative Urine Nitrite Positive H Ur Leukocyte Esterase Small (1+) H Urine RBC 0-2 Urine WBC 11-20 Ur Squamous Epith Cells 0-2 Calcium Oxalate Crystal Present Urine Bacteria 4+ Hyaline Casts 0-2 Assessment and Plan (1) Acute UTI: Status: Acute Plan 83F PMH Parkinson's, hypothyroidism, recent right hip fracture presented with acute confusion Acute metabolic encephalopathy Likely due to acute UTI IV ceftriaxone Follow-up cultures Monitor mental status Parkinson's with dementia Continue carbidopa levodopa Hypothyroid Synthroid DVT prophylaxis with heparin Full code Reason for continued hospitalization: Awaiting return to mental status Time Spent With Patient Time: Total time managing care of this patient today ____ minutes. Quality Stroke Does the patient have a stroke diagnosis?: No VTE Prior VTE?: No VTE Risk Level:: Medical - moderate - high VTE Device Contraindication: Treatment Not Indicated VTE Drug Contraindication: N/A - Med Ordered
--- NOTE | 2023-08-10 11:52 | P.CDIM_ITS ---
PROVIDER RESPONSE TEXT: To clarify, the appropriate diagnosis supported by the clinical indicators: Other (explain): it was a typo, probably meant uti QUERY TEXT: PHYSICIAN'S DOCUMENTATION REQUEST Date of Query: 08/10/2023 11:43 AM EDT Patient Name: Suzan Lindo Admit Date: 08/10/2023 Dear Jack Olivera, A review of the medical record indicates additional documentation may be needed. Please review below and update the documentation accordingly. Clinical Indicators: H&P 08/10 - Workup found patient to have BENSON in patient started on antibiotics and will be admitted fo r further management. Bun 17 Cr 0.66 Gfr >60 The diagnosis of BENSON was documented on but is not consistently noted in subsequent documentation. Please clarify the following: Diagnosis was present on admission and is now resolved Diagnosis was present on admission and is still being monitored, evaluated, or treated Diagnosis was ruled out Diagnosis is still a likely, suspected, probable diagnosis Other (explain)Clinically unable to determine (explain)Thank you, Katerine Partida, CCS, CDIS Use of terms such as suspected, likely, concern for, or probable (associated with a specific diagnosi s that is being evaluated, monitored, or treated as if it exists) are acceptable and can be coded in the inpatient se tting, when documented at the time of discharge. Please use your independent medical judgment in providing your response. THIS QUERY IS PART OF THE PERMANENT MEDICAL RECORD
--- NOTE | 2023-08-10 12:54 | PC.NURSE ---
Incontinent care provided, pt repositioned for comfort. report to shanelle on s3
--- NOTE | 2023-08-10 14:25 | MHC.CLN ---
NUTRITION CONSULT FOR POOR PO. DIET=REGULAR. ADDING ENSURE MAX PROTEIN BID. SUPPLEMENT PROVIDES ADDITIONAL 300 KCALS, 60 G PROTEIN. PATIENT WITH DX UTI AND ENCEPHALOPATHY. TIAN=13. NO PRESSURE AREAS. RD TO FOLLOW UP WEEKLY.
[2023-08-10] MEDS: 0.9 % Sodium Chloride Flush 3 ML SYRINGE IVFLUSH ×2 (18:16→21:08)
[2023-08-11 04:00] VITALS: BP 143/78; PULSE 87; RESP 16; TEMP 36.1; O2SAT 100
[2023-08-11] MEDS: Levothyroxine Sodium 75 MCG TABLET PO (05:52)
[2023-08-11 06:34] LABS: Hematocrit 34.4 % (37.0-47.0); Hemoglobin 10.8 g/dl (12.0-16.0); Mean Corpuscular HGB Conc 31.4 g/dl (31.0-35.0); Mean Corpuscular Hemoglobin 32.4 pg (27.0-33.0); Mean Corpuscular Volume 103.3 fL (80.0-98.0); Platelet Count 205 X10*3/uL (160-400); Red Blood Count 3.33 X10*6/uL (4.20-5.50); Red Cell Distribution Width 12.7 % (11.0-16.0); White Blood Count 4.9 X10*3/uL (4.8-10.8)
[2023-08-11 06:49] LABS: Anion Gap 12 (12-20); Blood Urea Nitrogen 15 mg/dL (9-16); Calcium 9.2 mg/dL (8.4-10.2); Carbon Dioxide 23 mmol/L (22-29); Chloride 112 mmol/L (96-108); Creatinine Clr Calc Pharmacy 58.1; Estimated Glomerular Filt Rate > 60; Glucose Fasting 77 mg/dL (60-99); Potassium 4.3 mmol/L (3.3-5.1); Sodium 143 mmol/L (135-145)
[2023-08-11 07:28] VITALS: BP 151/69; PULSE 87; RESP 18; TEMP 36.1; O2SAT 98
[2023-08-11] MEDS: Cyanocobalamin (Vitamin B-12) 1,000 MCG TABLET 1000 MCG PO (08:33)
[2023-08-11] MEDS: Ascorbic Acid 500 MG TABLET PO (08:33)
[2023-08-11] MEDS: Ferrous Sulfate 324 MG TABLET.DR PO (08:33)
[2023-08-11] MEDS: 0.9 % Sodium Chloride Flush 3 ML SYRINGE IVFLUSH ×3 (08:34→21:59)
[2023-08-11] MEDS: Cholecalciferol (Vitamin D3) 25 MCG TABLET 50 MCG PO (08:34)
[2023-08-11] MEDS: Heparin Sodium,Porcine 5,000 UNIT/ML VIAL 5000 UNIT SUBCUT ×2 (08:34→21:57)
--- NOTE | 2023-08-11 08:59 | PM.CNOR ---
History of Present Illness HPI Consult date: 08/11/23 Chief complaint: Encephalopathy Narrative: Patient presented to the ED 08/10/23 for concerns of UTI. She is currently at [facility] s/ rt hip IM Nail distal locking screws 07/26/23. She was admitted to the medicine service with orthopedic consult for further evaluation and treatment of the surgical site. [facility] Past Medical History Medical History Aortic stenosis, mild Hypothyroidism Parkinson's disease Family History Family History Sister AAA (abdominal aortic aneurysm) Surgical History Surgical History Hx of colonoscopy History of hand surgery History of total hip replacement Social History Social History Household Members: Spouse Household Members Other:: was a rehab and home for 1 day Housing: [facility] Do you presently have visiting nurse or other home services: Yes Alcohol intake: current Alcohol intake frequency: does not drink Alcohol type: hard liquor Patient Tobacco Use Status: Former Tobacco user Tobacco use type: Cigarette Cigarettes Per Day: 4 Years Smoked: 35 Second Hand Smoke Exposure: No Advance Directives Date on File: 08/10/23 service: No Current occupational status: retired and disabled 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 Allergies Allergy/AdvReac Type Severity Reaction Status Date / Time alendronate sodium AdvReac Unknown Unknown Verified 07/22/23 20:43 [From Fosamax] Active Medications: Current Medications Acetaminophen (Acetaminophen 325 Mg Tablet) 650 mg PO Q6H PRN PRN Reason: Pain, Mild (Pain Scale 1-3) Ascorbic Acid (Ascorbic Acid 500 Mg Tablet) 500 mg PO DAILY [facility] Last Admin: 08/11/23 08:33 Dose: 500 mg Cyanocobalamin (Cyanocobalamin (Vitamin B-12) 1,000 Mcg Tablet) 1,000 mcg PO DAILY [facility] Last Admin: 08/11/23 08:33 Dose: 1,000 mcg Docusate Sodium (Docusate Sodium 100 Mg Capsule) 100 mg PO DAILY PRN PRN Reason: Constipation Ferrous Sulfate (Ferrous Sulfate 324 Mg Tablet.) 324 mg PO DAILY [facility] Last Admin: 08/11/23 08:33 Dose: 324 mg Heparin Sodium (Porcine) (Heparin Sodium,Porcine 5,000 Unit/Ml Vial) 5,000 unit SUBCUT Q12H [facility] Last Admin: 08/11/23 08:34 Dose: 5,000 unit Ceftriaxone Sodium 1 gm/ (Sodium Chloride) 50 mls @ 100 mls/hr IV Q24H [facility] Last Infusion: 08/10/23 22:16 Dose: Infused Levothyroxine Sodium (Levothyroxine Sodium 75 Mcg Tablet) 75 mcg PO DAILY@0600 [facility] Last Admin: 08/11/23 05:52 Dose: 75 mcg Non-Formulary Medication (Carbidopa-Levodopa [Rytary]) 3 cap PO BID@1200,1800 [facility] Last Admin: 08/10/23 18:15 Dose: 3 cap Pt Own Medication ( Carbidopa-Levodopa [ Rytary] 23.75-95 Mg Capsule, Extended Releas 4 cap PO DAILY@0800 [facility] Last Admin: 08/11/23 08:33 Dose: 4 cap Pt Own Med Medication ( Pimavanserin [ Nuplazid] 34 Mg Capsule) 34 mg PO DAILY [facility] Ondansetron HCl (Ondansetron Hcl 4 Mg/2 Ml Vial) 4 mg IVPUSH Q8H PRN PRN Reason: Nausea and Vomiting Selegiline HCl (Selegiline Hcl 5 Mg Capsule) 5 mg PO BID@0800,1200 [facility] Last Admin: 08/11/23 08:33 Dose: 5 mg Sodium Chloride (0.9 % Sodium Chloride Flush 3 Ml Syringe) 3 ml IVFLUSH QSHIFT [facility] Last Admin: 08/11/23 08:34 Dose: 3 ml Vitamin D (Cholecalciferol (Vitamin D3) 25 Mcg Tablet) 50 mcg PO DAILY [facility] Last Admin: 08/11/23 08:34 Dose: 50 mcg Home Medications Medication Instructions Recorded Confirmed Last Taken Type cholecalciferol (vitamin D3) 50 50 mcg PO DAILY 01/19/22 08/10/23 05/26/23 History mcg (2,000 unit) capsule levothyroxine 75 mcg tablet 75 mcg PO DAILY@0600 01/19/22 08/10/23 05/26/23 History mecobalamin (vitamin B12) 1,000 1,000 mcg PO DAILY 04/05/23 08/10/23 05/26/23 History mcg chewable tablet carbidopa ER 23.75 mg-levodopa 95 3 cap PO BID@1200,1800 05/26/23 08/10/23 05/26/23 History mg capsule,extended release (Rytary) carbidopa ER 23.75 mg-levodopa 95 4 cap PO DAILY@0800 05/26/23 08/10/23 05/26/23 History mg capsule,extended release (Rytary) acetaminophen 325 mg tablet 650 mg PO TID 07/22/23 08/10/23 Unknown History ascorbic acid (vitamin C) 500 mg 500 mg PO DAILY 07/22/23 08/10/23 Unknown History tablet oxycodone 5 mg tablet 5 mg PO Q6H PRN Pain 08/10/23 08/10/23 Unknown History Physical Exam Vital Signs: Vital Signs: Last Vital Signs Temp 96.9 F 08/11/23 07:28 Pulse 87 08/11/23 07:28 Resp 18 08/11/23 07:28 BP 151/69 H 08/11/23 07:28 Pulse Ox 98 08/11/23 07:28 O2 Del Method Room Air 08/11/23 07:28 BMI result Body Mass Index 20.0 Extrem: Other: Right knee incision site is c/d/i. Able to flex and extend at the knee. Able to dorsi/plantar flex. NVI. Results Labs 08/11/23 05:55 08/11/23 05:55 Labs: Abnormal lab results 08/11/23 Range/Units 05:55 RBC 3.33 L (4.20-5.50) X10*6/uL Hgb 10.8 L (12.0-16.0) g/dl Hct 34.4 L (37.0-47.0) % MCV 103.3 H (80.0-98.0) fL Chloride 112 H (96-108) mmol/L H & H 08/10/23 08/10/23 08/11/23 Range/Units 03:51 05:27 05:55 Hgb 10.5 L 9.8 L 10.8 L (12.0-16.0) g/dl Hct 31.8 L 29.9 L 34.4 L (37.0-47.0) % All other labs normal. Assessment and Plan (1) Acute UTI: Status: Acute (2) Fracture, intertrochanteric, right femur: Status: Acute Continue pain mgmnt Continue Lovenox for dvt ppx x 6 weeks post op date Continue PT for rt hip IM Nail with interlocking screws - wbat Dispo planning-Pending PT eval, pain mgmnt Time Spent With Patient Time: Total time managing care of this patient today ____ minutes. Procedures Date of Service Date of Service: 08/11/23
--- NOTE | 2023-08-11 09:26 | HO.PM.IMPN ---
Subjective Subjective Date of Service: 08/11/23 Interval History: much improved Physical Exam Vital Signs: Vital Signs: Last Vital Signs Temp 96.9 F 08/11/23 07:28 Pulse 87 08/11/23 07:28 Resp 18 08/11/23 07:28 BP 151/69 H 08/11/23 07:28 Pulse Ox 98 08/11/23 07:28 O2 Del Method Room Air 08/11/23 07:28 BMI result Body Mass Index 20.0 General: AO X 3, no acute distress Resp: CTA bilateral, no accessory muscles used CVS: S1,S2,RRR GI: soft, non tender, non distended Neuro: motor grossly intact, alert Psych: appropriate affect, appropriate insight Objective Data Active Medications Acetaminophen (Acetaminophen 325 Mg Tablet) 650 mg PO Q6H PRN PRN Reason: Pain, Mild (Pain Scale 1-3) Ascorbic Acid (Ascorbic Acid 500 Mg Tablet) 500 mg PO DAILY [facility] Last Admin: 08/11/23 08:33 Dose: 500 mg Documented By: OMAYRA Cyanocobalamin (Cyanocobalamin (Vitamin B-12) 1,000 Mcg Tablet) 1,000 mcg PO DAILY [facility] Last Admin: 08/11/23 08:33 Dose: 1,000 mcg Documented By: OMAYRA Docusate Sodium (Docusate Sodium 100 Mg Capsule) 100 mg PO DAILY PRN PRN Reason: Constipation Ferrous Sulfate (Ferrous Sulfate 324 Mg Tablet.) 324 mg PO DAILY [facility] Last Admin: 08/11/23 08:33 Dose: 324 mg Documented By: OMAYRA Heparin Sodium (Porcine) (Heparin Sodium,Porcine 5,000 Unit/Ml Vial) 5,000 unit SUBCUT Q12H [facility] Last Admin: 08/11/23 08:34 Dose: 5,000 unit Documented By: OMAYRA Ceftriaxone Sodium 1 gm/ (Sodium Chloride) 50 mls @ 100 mls/hr IV Q24H [facility] Last Infusion: 08/10/23 22:16 Dose: Infused Documented By: MARY Levothyroxine Sodium (Levothyroxine Sodium 75 Mcg Tablet) 75 mcg PO DAILY@0600 [facility] Last Admin: 08/11/23 05:52 Dose: 75 mcg Documented By: MARY Non-Formulary Medication (Carbidopa-Levodopa [Rytary]) 3 cap PO BID@1200,1800 [facility] Last Admin: 08/10/23 18:15 Dose: 3 cap Documented By: AMY Pt Own Medication ( Carbidopa-Levodopa [ Rytary] 23.75-95 Mg Capsule, Extended Releas 4 cap PO DAILY@0800 [facility] Last Admin: 08/11/23 08:33 Dose: 4 cap Documented By: OMAYRA Pt Own Med Medication ( Pimavanserin [ Nuplazid] 34 Mg Capsule) 34 mg PO DAILY [facility] Ondansetron HCl (Ondansetron Hcl 4 Mg/2 Ml Vial) 4 mg IVPUSH Q8H PRN PRN Reason: Nausea and Vomiting Selegiline HCl (Selegiline Hcl 5 Mg Capsule) 5 mg PO BID@0800,1200 [facility] Last Admin: 08/11/23 08:33 Dose: 5 mg Documented By: OMAYRA Sodium Chloride (0.9 % Sodium Chloride Flush 3 Ml Syringe) 3 ml IVFLUSH QSHIFT [facility] Last Admin: 08/11/23 08:34 Dose: 3 ml Documented By: OMAYRA Vitamin D (Cholecalciferol (Vitamin D3) 25 Mcg Tablet) 50 mcg PO DAILY [facility] Last Admin: 08/11/23 08:34 Dose: 50 mcg Documented By: OMAYRA Labs 08/11/23 05:55 08/11/23 05:55 Labs: Laboratory Results - last 24 hr 08/11/23 05:55 MCV 103.3 H MCH 32.4 MCHC 31.4 RDW 12.7 Plt Count 205 MPV 12.0 Absolute Nucleated RBC 0.000 Nucleated RBC % (auto) 0.0 Anion Gap 12 Estim Creat Clear Calc 58.1 Estimated GFR > 60 Fasting Glucose 77 Calcium 9.2 Microbiology Microbiology Results: Microbiology 08/10/23 03:51 Blood Culture - Preliminary Blood - Venous No growth after 24 hours. 08/10/23 03:51 Blood Culture - Preliminary Blood - Venous No growth after 24 hours. Assessment and Plan (1) Acute UTI: Status: Acute Plan 83F PMH Parkinson's, hypothyroidism, recent right hip fracture presented with acute confusion Acute metabolic encephalopathy Likely due to acute UTI IV ceftriaxone Follow-up cultures back to baseline recent hip fracture follow up ortho Parkinson's with dementia Continue carbidopa levodopa Hypothyroid Synthroid DVT prophylaxis with heparin Full code Reason for continued hospitalization: Awaiting cultures Time Spent With Patient Time: Total time managing care of this patient today ____ minutes. Quality Stroke Does the patient have a stroke diagnosis?: No VTE Prior VTE?: No VTE Risk Level:: Medical - moderate - high VTE Device Contraindication: Treatment Not Indicated VTE Drug Contraindication: N/A - Med Ordered
[2023-08-11] MEDS: Docusate Sodium 100 MG CAPSULE PO (09:42)
--- NOTE | 2023-08-11 14:22 | MHC.CM.PN ---
CM MET WITH PT AND AT BEDSIDE PT LIVES WITH HER WHO ASSISTS HER PRN PT HAS A WALKER SHE USES AT [facility] SHE HAS A HCP ON FILE PCP: RAMA RIVERA PT IN FROM [facility] WHERE SHE WAS RECEIVING STR PT AND REQUESTING REFERRAL TO [facility] WHERE SHE WAS TWO ADMISSIONS AGO OF NOTE: [facility] HAS DECLINED REFERRAL DURING HER LAST ADMISSION AND THIS ONE THEY ARE ALSO REQUESTING REFERRALS TO [facility], BOTH OF WHICH HAVE ALSO DECLINED REFERRAL PT AND WERE INFORMED THE BED AT [facility] HAS NOT YET BEEN GIVEN AWAY SHE MAY NOT HAVE ANY BETTER BED OFFERS. IMM DELIVERED DCP: STR AT A NEW SNF OR BACK AT [facility] BLS TRANSPORT
[2023-08-11 15:30] VITALS: BP 111/57; PULSE 90; RESP 16; TEMP 36.6; O2SAT 97
[2023-08-11 19:17] VITALS: BP 140/73; PULSE 89; RESP 16; TEMP 36.2; O2SAT 97
[2023-08-11] MEDS: cefTRIAXone sodium 1 GM in 0.9 % Sodium Chloride 50 ML IV (21:57)
[2023-08-12 03:45] VITALS: BP 142/65; PULSE 94; RESP 17; TEMP 36.4; O2SAT 97
[2023-08-12] MEDS: Levothyroxine Sodium 75 MCG TABLET PO (05:49)
[2023-08-12 07:24] VITALS: BP 140/64; PULSE 86; RESP 16; TEMP 36.3; O2SAT 99
[2023-08-12] MEDS: Ferrous Sulfate 324 MG TABLET.DR PO (07:33)
[2023-08-12] MEDS: Cholecalciferol (Vitamin D3) 25 MCG TABLET 50 MCG PO (07:33)
[2023-08-12] MEDS: 0.9 % Sodium Chloride Flush 3 ML SYRINGE IVFLUSH ×3 (07:33→21:47)
[2023-08-12] MEDS: Cyanocobalamin (Vitamin B-12) 1,000 MCG TABLET 1000 MCG PO (07:33)
[2023-08-12] MEDS: Ascorbic Acid 500 MG TABLET PO (07:33)
[2023-08-12] MEDS: Heparin Sodium,Porcine 5,000 UNIT/ML VIAL 5000 UNIT SUBCUT ×2 (07:36→20:18)
--- NOTE | 2023-08-12 09:35 | P.DS_ITS ---
DS: Providers Provider Date of Service: 08/15/23 Date of admission: 08/10/23 04:47 Primary care physician: Omar Siu MD Consults: 08/10/23 13:55 Consult to Orthopedics Routine Consulting Provider: [facility] Reason for consultation: postop right hip imn 08/02/23 (inpatient for uti/delerium) DS: Diagnosis Discharge Diagnosis (1) Acute UTI: Status: Acute DS: Summary Hospital Course Hospital Course: from initial hpi: 83-year-old female past medical history of Parkinson's disease, hypothyroidism, history of recent right hip fracture status post IM in May as well as followed by mechanical fall that resulted in a spiral fixation of the right femur status post surgery on 07/25, sent to [facility] on 07/[facility]. She is sent back as patient has been more confused, very combative, and hitting nursing staff at the [facility]. On arrival to the ED he was also very confused and combative, received Haldol and Ativan. She is currently obtunded, unable to give much history therefore history is obtained mostly from the ED physician. Workup found patient to have BENSON in patient started on antibiotics and will be admitted for further management Vitals otherwise unremarkable Labs show a WBC count of 5.7, labs otherwise unremarkable hospital course: Patient was admitted for acute metabolic encephalopathy due to urinary tract infection. Urine grew E coli that was pansensitive. She was treated with IV ceftriaxone and mental status returned to baseline. For her recent hip fracture she will continue physical therapy at short-term rehab and DVT prophylaxis. She will follow up with Orthopedics as outpatient. For Parkinson's with dementia she will continue on carbidopa/levodopa. For hypothyroidism was continue on Synthroid. Time Spent with Patient Time attestation: Total time managing care of this patient today ____ minutes. Discharge coordination time: Greater than 30 minutes Quality: Safe Use of Opioids Does Pt have an Active Cancer Diagnosis on the Problem List?: No Quality: Stroke Does the patient have a stroke diagnosis?: No Physical Exam Vital Signs: Vital Signs: Last Vital Signs Temp 97.4 F 08/12/23 07:24 Pulse 86 08/12/23 07:24 Resp 16 08/12/23 07:24 BP 140/64 H 08/12/23 07:24 Pulse Ox 99 08/12/23 07:24 O2 Del Method Room Air 08/12/23 07:24 BMI result Body Mass Index 20.0 General: AO X 3, no acute distress Resp: CTA bilateral, no accessory muscles used CVS: S1,S2,RRR GI: soft, non tender, non distended Neuro: motor grossly intact, alert Psych: appropriate affect, appropriate insight DS: Data Data Completed and Pending Completed studies during hospitalization [Text1]: Procedures Reposition Right Lower Femur with Intramedullary Internal Fixation Device, Percutaneous Approach (07/23/23) Reposition Right Upper Femur with Intramedullary Internal Fixation Device, Percutaneous Approach (05/26/23) Transfusion of Nonautologous Red Blood Cells into Peripheral Vein, Percutaneous Approach (05/26/23) Labs on day of discharge: Preliminary micro results at discharge 08/10/23 03:51 Blood Culture - Preliminary Blood - Venous No growth after 48 hours. 08/10/23 03:51 Blood Culture - Preliminary Blood - Venous No growth after 48 hours. Discharge Plan Discharge Anticipated Discharge Date/Time: 08/12/23 09:31 Patient Disposition: Xfer SNF Discharge Diagnosis: uti Referrals: [facility] [Outside] Alina Oliveira PA-C [Physician Automation Mechanic] - 4 Weeks (09/08/23 1:15 [facility] Alina Oliveira PA-C) Omar Siu MD [Primary Care Provider] - 1 Week Discharge Medications: New cefuroxime axetil 250 mg tablet 250 mg PO BID Qty: 10 0RF Continued selegiline HCl 5 mg tablet 5 mg PO BID 30 Days Qty: 60 6RF Nuplazid 34 mg capsule 34 mg PO DAILY 30 Days Qty: 30 6RF Rytary 23.75-95 mg capsule, extended release 3 cap PO BID@1200,1800 Rytary 23.75-95 mg capsule, extended release 4 cap PO DAILY@0800 ferrous sulfate 324 mg (65 mg iron) Tablet,Delayed Release (Dr/Ec) 324 mg PO DAILY Qty: 30 0RF acetaminophen 325 mg Tablet 650 mg PO TID ascorbic acid (vitamin C) 500 mg Tablet 500 mg PO DAILY enoxaparin 40 mg/0.4 mL Syringe 40 mg subcut Q24H 42 Days Qty: 16.8 0RF oxycodone 5 mg tablet 5 mg PO Q6H PRN (Reason: Pain) cholecalciferol (vitamin D3) 50 mcg (2,000 unit) capsule 50 mcg PO DAILY levothyroxine 75 mcg tablet 75 mcg PO DAILY@0600 mecobalamin (vitamin B12) 1,000 mcg tablet,chewable 1,000 mcg PO DAILY Discharge Orders: Discharge Order (Routine); Ordered 08/12/23 Ordered By: Jack Olivera Diet: Advance to usual diet Activity on Discharge: As tolerated Stand Alone Forms: Patient Portal Discharge page Care Plan Goals: recovery Health Concerns: uti Plan of Treatment: 5 more days ceftin Assessment: see above
--- NOTE | 2023-08-12 10:12 | HO.PM.IMPN ---
Subjective Subjective Date of Service: 08/12/23 Interval History: feeling better Physical Exam Vital Signs: Vital Signs: Last Vital Signs Temp 97.4 F 08/12/23 07:24 Pulse 86 08/12/23 07:24 Resp 16 08/12/23 07:24 BP 140/64 H 08/12/23 07:24 Pulse Ox 99 08/12/23 07:24 O2 Del Method Room Air 08/12/23 07:24 BMI result Body Mass Index 20.0 General: AO X 3, no acute distress Resp: CTA bilateral, no accessory muscles used CVS: S1,S2,RRR GI: soft, non tender, non distended Neuro: motor grossly intact, alert Psych: appropriate affect, appropriate insight Objective Data Active Medications Acetaminophen (Acetaminophen 325 Mg Tablet) 650 mg PO Q6H PRN PRN Reason: Pain, Mild (Pain Scale 1-3) Ascorbic Acid (Ascorbic Acid 500 Mg Tablet) 500 mg PO DAILY [facility] Last Admin: 08/12/23 07:33 Dose: 500 mg Documented By: WANDA Cyanocobalamin (Cyanocobalamin (Vitamin B-12) 1,000 Mcg Tablet) 1,000 mcg PO DAILY [facility] Last Admin: 08/12/23 07:33 Dose: 1,000 mcg Documented By: WANDA Docusate Sodium (Docusate Sodium 100 Mg Capsule) 100 mg PO DAILY PRN PRN Reason: Constipation Last Admin: 08/11/23 09:42 Dose: 100 mg Documented By: OMAYRA Ferrous Sulfate (Ferrous Sulfate 324 Mg Tablet.) 324 mg PO DAILY [facility] Last Admin: 08/12/23 07:33 Dose: 324 mg Documented By: WANDA Heparin Sodium (Porcine) (Heparin Sodium,Porcine 5,000 Unit/Ml Vial) 5,000 unit SUBCUT Q12H [facility] Last Admin: 08/12/23 07:36 Dose: 5,000 unit Documented By: WANDA Ceftriaxone Sodium 1 gm/ (Sodium Chloride) 50 mls @ 100 mls/hr IV Q24H [facility] Last Infusion: 08/11/23 22:30 Dose: Infused Documented By: BERNABE Levothyroxine Sodium (Levothyroxine Sodium 75 Mcg Tablet) 75 mcg PO DAILY@0600 [facility] Last Admin: 08/12/23 05:49 Dose: 75 mcg Documented By: BERNABE Non-Formulary Medication (Carbidopa-Levodopa [Rytary]) 3 cap PO BID@1200,1800 [facility] Last Admin: 08/11/23 17:08 Dose: 3 cap Documented By: AMY Cifuentes Own Medication ( Carbidopa-Levodopa [ Rytary] 23.75-95 Mg Capsule, Extended Releas 4 cap PO DAILY@0800 [facility] Last Admin: 08/12/23 07:34 Dose: 4 cap Documented By: WANDA Cifuentes Own Med Medication ( Pimavanserin [ Nuplazid] 34 Mg Capsule) 34 mg PO DAILY [facility] Last Admin: 08/12/23 07:35 Dose: 34 mg Documented By: WANDA Ondansetron HCl (Ondansetron Hcl 4 Mg/2 Ml Vial) 4 mg IVPUSH Q8H PRN PRN Reason: Nausea and Vomiting Selegiline HCl (Selegiline Hcl 5 Mg Capsule) 5 mg PO BID@0800,1200 [facility] Last Admin: 08/12/23 07:33 Dose: 5 mg Documented By: WANDA Sodium Chloride (0.9 % Sodium Chloride Flush 3 Ml Syringe) 3 ml IVFLUSH QSHIFT [facility] Last Admin: 08/12/23 07:33 Dose: 3 ml Documented By: WANDA Vitamin D (Cholecalciferol (Vitamin D3) 25 Mcg Tablet) 50 mcg PO DAILY [facility] Last Admin: 08/12/23 07:33 Dose: 50 mcg Documented By: WANDA Labs 08/11/23 05:55 08/11/23 05:55 Microbiology Microbiology Results: Microbiology 08/10/23 Unknown Urine Culture - Final Urine Catheterized - Straight Catheter Escherichia coli 08/10/23 03:51 Blood Culture - Preliminary Blood - Venous No growth after 48 hours. 08/10/23 03:51 Blood Culture - Preliminary Blood - Venous No growth after 48 hours. Assessment and Plan (1) Acute UTI: Status: Acute Plan 83F PMH Parkinson's, hypothyroidism, recent right hip fracture presented with acute confusion Acute metabolic encephalopathy Likely due to acute UTI resolved urine culture grew ecoli, complete 5 more days ceftin back to baseline recent hip fracture follow up ortho Parkinson's with dementia Continue carbidopa levodopa Hypothyroid Synthroid DVT prophylaxis with heparin Full code Reason for continued hospitalization: Awaiting palcement Time Spent With Patient Time: Total time managing care of this patient today ____ minutes. Quality Stroke Does the patient have a stroke diagnosis?: No VTE Prior VTE?: No VTE Risk Level:: Medical - moderate - high VTE Device Contraindication: Treatment Not Indicated VTE Drug Contraindication: N/A - Med Ordered
--- NOTE | 2023-08-12 11:49 | MHC.CM.PN ---
PT CLEARED TO DC TO [facility] TODAY PER PT AND REQUEST, REFERRALS WERE MADE TO [facility] CM CALLED PTS , [facility] [phone] AND INFORMED HIM NONE OF THESE FACILITIES WERE OFFERING A BED CM DID CONFIRM [facility] AT [place], WHERE PT COME IN FROM, IS WILLING TO TAKE HER BACK HE REPORTS BEING AGREEABLE ALTHOUGH DISAPPOINTED HE FELT SHE RECEIVED BETTER REHAB AT [facility] HE DID ASK AGAIN ABOUT [facility] AND CM INFORMED HIM THEY DID REVIEW AND STATED THEY DID NOT FEEL SHE COULD PARTICIPATE IN THAT LEVEL OF REHAB. HE IS AWARE BLS TRANSPORT IS BOOKED FOR 1600 WITH [facility] HE DID ASK THAT CM MESSAGE THESE SNFS ONE MORE TIME TO CONFIRM A BED DID NOT OPEN. MESSAGES SENT, ALL THREE SNFS CONTINUE TO DECLINE REFERRAL
[2023-08-12 13:20] VITALS: BP 140/64; PULSE 86; O2SAT 99
[2023-08-12 15:54] VITALS: BP 129/61; PULSE 93; RESP 16; TEMP 36.1; O2SAT 99
[2023-08-12 20:00] VITALS: BP 128/65; PULSE 100; RESP 17; TEMP 36.5; O2SAT 96
[2023-08-12] MEDS: cefTRIAXone sodium 1 GM in 0.9 % Sodium Chloride 50 ML IV (21:46)
[2023-08-13 03:30] VITALS: BP 162/73; PULSE 92; RESP 18; TEMP 36; O2SAT 96
[2023-08-13] MEDS: Levothyroxine Sodium 75 MCG TABLET PO (05:37)
[2023-08-13 07:07] VITALS: BP 155/73; PULSE 90; RESP 20; TEMP 36.3; O2SAT 100
--- NOTE | 2023-08-13 08:32 | P.PNIM_ITS ---
Subjective Subjective Date of Service: 08/13/23 Interval History: no complaints Physical Exam 2 Vital Signs: Vital Signs: Last Vital Signs Temp 97.4 F 08/13/23 07:07 Pulse 90 08/13/23 07:07 Resp 20 08/13/23 07:07 BP 155/73 H 08/13/23 07:07 Pulse Ox 100 08/13/23 07:07 O2 Del Method Room Air 08/13/23 07:07 BMI result Body Mass Index 20.0 General: AO X 3, no acute distress Resp: CTA bilateral, no accessory muscles used CVS: S1,S2,RRR GI: soft, non tender, non distended Neuro: motor grossly intact, alert Psych: appropriate affect, appropriate insight Objective Data Active Medications Acetaminophen (Acetaminophen 325 Mg Tablet) 650 mg PO Q6H PRN PRN Reason: Pain, Mild (Pain Scale 1-3) Ascorbic Acid (Ascorbic Acid 500 Mg Tablet) 500 mg PO DAILY [facility] Last Admin: 08/12/23 07:33 Dose: 500 mg Documented By: WANDA Cyanocobalamin (Cyanocobalamin (Vitamin B-12) 1,000 Mcg Tablet) 1,000 mcg PO DAILY [facility] Last Admin: 08/12/23 07:33 Dose: 1,000 mcg Documented By: WANDA Docusate Sodium (Docusate Sodium 100 Mg Capsule) 100 mg PO DAILY PRN PRN Reason: Constipation Last Admin: 08/11/23 09:42 Dose: 100 mg Documented By: OMAYRA Ferrous Sulfate (Ferrous Sulfate 324 Mg Tablet.) 324 mg PO DAILY [facility] Last Admin: 08/12/23 07:33 Dose: 324 mg Documented By: WANDA Heparin Sodium (Porcine) (Heparin Sodium,Porcine 5,000 Unit/Ml Vial) 5,000 unit SUBCUT Q12H [facility] Last Admin: 08/12/23 20:18 Dose: 5,000 unit Documented By: LESLIE Ceftriaxone Sodium 1 gm/ (Sodium Chloride) 50 mls @ 100 mls/hr IV Q24H [facility] Last Infusion: 08/12/23 22:19 Dose: Infused Documented By: LESLIE Levothyroxine Sodium (Levothyroxine Sodium 75 Mcg Tablet) 75 mcg PO DAILY@0600 [facility] Last Admin: 08/13/23 05:37 Dose: 75 mcg Documented By: LESLIE Non-Formulary Medication (Carbidopa-Levodopa [Rytary]) 3 cap PO BID@1200,1800 [facility] Last Admin: 08/12/23 17:18 Dose: 3 cap Documented By: WANDA Cifuentes Own Medication ( Carbidopa-Levodopa [ Rytary] 23.75-95 Mg Capsule, Extended Releas 4 cap PO DAILY@0800 [facility] Last Admin: 08/12/23 07:34 Dose: 4 cap Documented By: WANDA Cifuentes Own Med Medication ( Pimavanserin [ Nuplazid] 34 Mg Capsule) 34 mg PO DAILY [facility] Last Admin: 08/12/23 07:35 Dose: 34 mg Documented By: WANDA Ondansetron HCl (Ondansetron Hcl 4 Mg/2 Ml Vial) 4 mg IVPUSH Q8H PRN PRN Reason: Nausea and Vomiting Selegiline HCl (Selegiline Hcl 5 Mg Capsule) 5 mg PO BID@0800,1200 [facility] Last Admin: 08/12/23 11:43 Dose: 5 mg Documented By: WANDA Sodium Chloride (0.9 % Sodium Chloride Flush 3 Ml Syringe) 3 ml IVFLUSH QSHIFT [facility] Last Admin: 08/12/23 21:47 Dose: 3 ml Documented By: LESLIE Vitamin D (Cholecalciferol (Vitamin D3) 25 Mcg Tablet) 50 mcg PO DAILY [facility] Last Admin: 08/12/23 07:33 Dose: 50 mcg Documented By: WANDA Labs 08/11/23 05:55 08/11/23 05:55 Microbiology Microbiology Results: Microbiology 08/10/23 Unknown Urine Culture - Final Urine Catheterized - Straight Catheter Escherichia coli 08/10/23 03:51 Blood Culture - Preliminary Blood - Venous No growth after 48 hours. 08/10/23 03:51 Blood Culture - Preliminary Blood - Venous No growth after 48 hours. Assessment and Plan (1) Acute UTI: Status: Acute Plan 83F PMH Parkinson's, hypothyroidism, recent right hip fracture presented with acute confusion Acute metabolic encephalopathy Likely due to acute UTI resolved urine culture grew ecoli, complete 5 more days ceftin back to baseline recent hip fracture follow up ortho Parkinson's with dementia Continue carbidopa levodopa Hypothyroid Synthroid DVT prophylaxis with heparin Full code Reason for continued hospitalization: medically stable, awaiting placement/appeal Time Spent With Patient Time: Total time managing care of this patient today ____ minutes. Quality Stroke Does the patient have a stroke diagnosis?: No VTE Prior VTE?: No VTE Risk Level:: Medical - moderate - high VTE Device Contraindication: Treatment Not Indicated VTE Drug Contraindication: N/A - Med Ordered
--- NOTE | 2023-08-13 09:07 | MHC.CM.PN ---
Addendum entered by Sondra Lawrence 08/13/23 15:47: CM MET WITH AND REVIEWED CURRENT BED OFFERS, [facility] [place] AND [facility]. HE REPORTS HE WOULD LIKE TO HOLD THE BED AT [facility], HE SAYS HE WILL GET THE PTS THINGS FROM [facility], HE REPORTS HE WAS EVEN MORE CONCERNED ABOUT PT GOING THERE THEY CALLED THIS MORNING AND TOLD HIM THERE IS A COVID OUTBREAK. [facility] REPORTS ALTHOUGH HE WOULD BE AGREEABLE TO [facility], HE IS STILL HOPING THE ACUTE REHAB FOLLOWING, [facility], WILL OFFER A BED. HE WOULD LIKE TO WAIT SINCE THE RESULTS OF THE APPEAL ARE NOT YET BACK. CM DID CHECK WITH [facility] TODAY, THEY ARE FOLLOWING BUT DO NOT HAVE A BED. Addendum entered by Sondra Lawrence 08/13/23 09:34: RECORDS FOR PTS APPEAL HAVE BEEN UPLOADED TO [employer] CASE NUMBER FOR APPEAL IS [id number] Original Note: CM MET WITH PT AND AT BEDSIDE ON 08/12/23 THEY REPORT CONCERN THAT AT THAT TIME ONLY [facility] [place] WAS OFFERING A BED THEY BOTH REPORT THEY FEEL SHE COULD DO ACUTE REHAB NOW THAT SHE IS GETTING BETTER CM DID MAKE REFERRALS TO [facility] RESPONDED SOON AFTER AND INDICATED THE PT DOES NOT MEET [facility] HOWEVER IS WILLING TO FOLLOW THEY DO NOT HAVE A BED AFTER FURTHER DISCUSSION WITH PT AND , THEY REQUESTED REFERRALS TO [facility]OTH [facility] AND [facility] CM ASSISTED PTS IN THE APPEAL OF HER DC THEY WANTED TO WAIT FOR ALL RESPONSES BEFORE SHE LEFT PT DOES STILL HAVE THE BED AT [facility] [place] AND [facility] HAS ALSO OFFERED [facility] CONTINUES TO HAVE NO BED AVAILABLE CM WILL MEET WITH AND PT BEDSIDE WHEN HE ARRIVES
[2023-08-13] MEDS: Cholecalciferol (Vitamin D3) 25 MCG TABLET 50 MCG PO (09:53)
[2023-08-13] MEDS: Ferrous Sulfate 324 MG TABLET.DR PO (09:56)
[2023-08-13] MEDS: Heparin Sodium,Porcine 5,000 UNIT/ML VIAL 5000 UNIT SUBCUT ×2 (09:56→20:25)
[2023-08-13] MEDS: Cyanocobalamin (Vitamin B-12) 1,000 MCG TABLET 1000 MCG PO (09:56)
[2023-08-13] MEDS: Ascorbic Acid 500 MG TABLET PO (09:57)
[2023-08-13 15:01] VITALS: BP 124/60; PULSE 96; RESP 20; TEMP 36.4; O2SAT 100
[2023-08-13] MEDS: 0.9 % Sodium Chloride Flush 3 ML SYRINGE IVFLUSH ×2 (17:56→20:25)
[2023-08-13 20:00] VITALS: BP 163/67; PULSE 102; RESP 18; TEMP 36.7; O2SAT 100
[2023-08-13] MEDS: Acetaminophen 325 MG TABLET 650 MG PO (20:27)
[2023-08-14] MEDS: OLANZapine 10 MG VIAL 5 MG IM (01:04)
--- NOTE | 2023-08-14 01:06 | PC.NURSE ---
pt suddenly woke up see things and hear the voices. try to get out of the bed to go to upstairs. provided incontinent care. while changing the bed. pt scratched the staff, kicking, through the water cup, and can of soda. notified. received Zyprexa IM 5mg. given by this nurse. will CONT to monitor behavior.
[2023-08-14 04:00] VITALS: BP 139/68; PULSE 100; RESP 17; TEMP 36.6; O2SAT 98
[2023-08-14] MEDS: Levothyroxine Sodium 75 MCG TABLET PO (05:54)
[2023-08-14 07:44] VITALS: BP 148/74; PULSE 94; RESP 18; TEMP 36.1; O2SAT 99
[2023-08-14] MEDS: Cholecalciferol (Vitamin D3) 25 MCG TABLET 50 MCG PO (08:21)
[2023-08-14] MEDS: Heparin Sodium,Porcine 5,000 UNIT/ML VIAL 5000 UNIT SUBCUT ×2 (08:21→19:48)
[2023-08-14] MEDS: Ascorbic Acid 500 MG TABLET PO (08:22)
[2023-08-14] MEDS: Cyanocobalamin (Vitamin B-12) 1,000 MCG TABLET 1000 MCG PO (08:22)
[2023-08-14] MEDS: 0.9 % Sodium Chloride Flush 3 ML SYRINGE IVFLUSH (08:22)
[2023-08-14] MEDS: Ferrous Sulfate 324 MG TABLET.DR PO (08:22)
--- NOTE | 2023-08-14 08:28 | P.PNIM_ITS ---
Subjective Subjective Date of Service: 08/14/23 Interval History: no complaints Physical Exam 2 Vital Signs: Vital Signs: Last Vital Signs Temp 96.9 F 08/14/23 07:44 Pulse 94 08/14/23 07:44 Resp 18 08/14/23 07:44 BP 148/74 H 08/14/23 07:44 Pulse Ox 99 08/14/23 07:44 O2 Del Method Room Air 08/14/23 07:44 BMI result Body Mass Index 20.0 General: AO X 3, no acute distress Resp: CTA bilateral, no accessory muscles used CVS: S1,S2,RRR GI: soft, non tender, non distended Neuro: motor grossly intact, alert Psych: appropriate affect, appropriate insight Objective Data Active Medications Acetaminophen (Acetaminophen 325 Mg Tablet) 650 mg PO Q6H PRN PRN Reason: Pain, Mild (Pain Scale 1-3) Last Admin: 08/13/23 20:27 Dose: 650 mg Documented By: LESLIE Ascorbic Acid (Ascorbic Acid 500 Mg Tablet) 500 mg PO DAILY [facility] Last Admin: 08/13/23 09:57 Dose: 500 mg Documented By: VIC Cefuroxime Axetil (Cefuroxime Axetil 250 Mg Tablet) 250 mg PO Q12H [facility] Last Admin: 08/13/23 20:25 Dose: 250 mg Documented By: LESLIE Cyanocobalamin (Cyanocobalamin (Vitamin B-12) 1,000 Mcg Tablet) 1,000 mcg PO DAILY [facility] Last Admin: 08/13/23 09:56 Dose: 1,000 mcg Documented By: VIC Docusate Sodium (Docusate Sodium 100 Mg Capsule) 100 mg PO DAILY PRN PRN Reason: Constipation Last Admin: 08/11/23 09:42 Dose: 100 mg Documented By: OMAYRA Ferrous Sulfate (Ferrous Sulfate 324 Mg Tablet.Dr) 324 mg PO DAILY [facility] Last Admin: 08/13/23 09:56 Dose: 324 mg Documented By: VIC Heparin Sodium (Porcine) (Heparin Sodium,Porcine 5,000 Unit/Ml Vial) 5,000 unit SUBCUT Q12H [facility] Last Admin: 08/13/23 20:25 Dose: 5,000 unit Documented By: LESLIE Levothyroxine Sodium (Levothyroxine Sodium 75 Mcg Tablet) 75 mcg PO DAILY@0600 [facility] Last Admin: 08/14/23 05:54 Dose: 75 mcg Documented By: ROBERTO Non-Formulary Medication (Carbidopa-Levodopa [Rytary]) 3 cap PO BID@1200,1800 [facility] Last Admin: 08/13/23 17:56 Dose: 3 cap Documented By: VIC Pt Own Medication ( Carbidopa-Levodopa [ Rytary] 23.75-95 Mg Capsule, Extended Releas 4 cap PO DAILY@0800 [facility] Last Admin: 08/13/23 09:56 Dose: 4 cap Documented By: VIC Pt Own Med Medication ( Pimavanserin [ Nuplazid] 34 Mg Capsule) 34 mg PO DAILY [facility] Last Admin: 08/13/23 09:57 Dose: 34 mg Documented By: VIC Ondansetron HCl (Ondansetron Hcl 4 Mg/2 Ml Vial) 4 mg IVPUSH Q8H PRN PRN Reason: Nausea and Vomiting Selegiline HCl (Selegiline Hcl 5 Mg Capsule) 5 mg PO BID@0800,1200 [facility] Last Admin: 08/13/23 13:02 Dose: 5 mg Documented By: VIC Sodium Chloride (0.9 % Sodium Chloride Flush 3 Ml Syringe) 3 ml IVFLUSH QSHIFT [facility] Last Admin: 08/13/23 20:25 Dose: 3 ml Documented By: LESLIE Vitamin D (Cholecalciferol (Vitamin D3) 25 Mcg Tablet) 50 mcg PO DAILY [facility] Last Admin: 08/13/23 09:53 Dose: 50 mcg Documented By: VIC Labs 08/11/23 05:55 08/11/23 05:55 Assessment and Plan (1) Acute UTI: Status: Acute Plan 83F PMH Parkinson's, hypothyroidism, recent right hip fracture presented with acute confusion Acute metabolic encephalopathy Likely due to acute UTI resolved urine culture grew ecoli, complete 2 more days ceftin back to baseline recent hip fracture follow up ortho Parkinson's with dementia Continue carbidopa levodopa Hypothyroid Synthroid DVT prophylaxis with heparin Full code Reason for continued hospitalization: medically stable, awaiting placement/appeal Time Spent With Patient Time: Total time managing care of this patient today ____ minutes. Quality Stroke Does the patient have a stroke diagnosis?: No VTE Prior VTE?: No VTE Risk Level:: Medical - moderate - high VTE Device Contraindication: Treatment Not Indicated VTE Drug Contraindication: N/A - Med Ordered
--- NOTE | 2023-08-14 15:16 | MHC.CM.PN ---
CM MET WITH PT AND SEVERAL TIMES THROUGHOUT THE DAY THEY NOW UNDERSTAND THERE ARE NO ACUTE REHAB BED OFFERS THEY ALSO REPORT THEY WOULD LIKE TO ACCEPT THE BED OFFER AT [facility] MESSAGE LM, THEY DO HAVE A BED FOR THE PT HOWEVER THEY ARE NOW UNABLE TO TAKE HER BEFORE TOMORROW MORNING PT WILL DC TO [facility] TOMORROW MORNING FOR STR VIA BLS
[2023-08-14 16:00] VITALS: BP 112/65; PULSE 80; RESP 16; TEMP 36.7; O2SAT 93
[2023-08-14 19:17] VITALS: BP 132/63; PULSE 91; RESP 18; TEMP 36.3; O2SAT 98
[2023-08-15 03:36] VITALS: BP 118/57; PULSE 88; RESP 17; TEMP 36.3; O2SAT 100
[2023-08-15] MEDS: Levothyroxine Sodium 75 MCG TABLET PO (05:37)
[2023-08-15 07:27] VITALS: BP 115/57; PULSE 90; RESP 16; TEMP 36.2; O2SAT 98
[2023-08-15] MEDS: Ascorbic Acid 500 MG TABLET PO (07:55)
[2023-08-15] MEDS: Ferrous Sulfate 324 MG TABLET.DR PO (07:55)
[2023-08-15] MEDS: Cyanocobalamin (Vitamin B-12) 1,000 MCG TABLET 1000 MCG PO (07:55)
[2023-08-15] MEDS: Cholecalciferol (Vitamin D3) 25 MCG TABLET 50 MCG PO (07:55)
[2023-08-15] MEDS: Heparin Sodium,Porcine 5,000 UNIT/ML VIAL 5000 UNIT SUBCUT (07:55)
--- NOTE | 2023-08-15 09:41 | P.PNIM_ITS ---
Subjective Subjective Date of Service: 08/15/23 Interval History: no complaints Physical Exam 2 Vital Signs: Vital Signs: Last Vital Signs Temp 97.2 F 08/15/23 07:27 Pulse 90 08/15/23 07:27 Resp 16 08/15/23 07:27 BP 115/57 L 08/15/23 07:27 Pulse Ox 98 08/15/23 07:27 O2 Del Method Room Air 08/15/23 07:27 O2 Flow Rate 4 08/14/23 16:00 BMI result Body Mass Index 20.0 General: AO X 3, no acute distress Resp: CTA bilateral, no accessory muscles used CVS: S1,S2,RRR GI: soft, non tender, non distended Neuro: motor grossly intact, alert Psych: appropriate affect, appropriate insight Objective Data Active Medications Acetaminophen (Acetaminophen 325 Mg Tablet) 650 mg PO Q6H PRN PRN Reason: Pain, Mild (Pain Scale 1-3) Last Admin: 08/13/23 20:27 Dose: 650 mg Documented By: LESLIE Ascorbic Acid (Ascorbic Acid 500 Mg Tablet) 500 mg PO DAILY [facility] Last Admin: 08/15/23 07:55 Dose: 500 mg Documented By: RITA Cefuroxime Axetil (Cefuroxime Axetil 250 Mg Tablet) 250 mg PO Q12H [facility] Last Admin: 08/15/23 07:56 Dose: 250 mg Documented By: RITA Cyanocobalamin (Cyanocobalamin (Vitamin B-12) 1,000 Mcg Tablet) 1,000 mcg PO DAILY [facility] Last Admin: 08/15/23 07:55 Dose: 1,000 mcg Documented By: RTIA Docusate Sodium (Docusate Sodium 100 Mg Capsule) 100 mg PO DAILY PRN PRN Reason: Constipation Last Admin: 08/11/23 09:42 Dose: 100 mg Documented By: OMAYRA Ferrous Sulfate (Ferrous Sulfate 324 Mg Tablet.) 324 mg PO DAILY [facility] Last Admin: 08/15/23 07:55 Dose: 324 mg Documented By: RITA Heparin Sodium (Porcine) (Heparin Sodium,Porcine 5,000 Unit/Ml Vial) 5,000 unit SUBCUT Q12H [facility] Last Admin: 08/15/23 07:55 Dose: 5,000 unit Documented By: RITA Levothyroxine Sodium (Levothyroxine Sodium 75 Mcg Tablet) 75 mcg PO DAILY@0600 [facility] Last Admin: 08/15/23 05:37 Dose: 75 mcg Documented By: ENRIQUE Non-Formulary Medication (Carbidopa-Levodopa [Rytary]) 3 cap PO BID@1200,1800 [facility] Last Admin: 08/14/23 17:23 Dose: 3 cap Documented By: VIC Pt Own Medication ( Carbidopa-Levodopa [ Rytary] 23.75-95 Mg Capsule, Extended Releas 4 cap PO DAILY@0800 [facility] Last Admin: 08/15/23 08:04 Dose: 4 cap Documented By: RITA Pt Own Med Medication ( Pimavanserin [ Nuplazid] 34 Mg Capsule) 34 mg PO DAILY [facility] Last Admin: 08/15/23 08:04 Dose: 34 mg Documented By: RITA Ondansetron HCl (Ondansetron Hcl 4 Mg/2 Ml Vial) 4 mg IVPUSH Q8H PRN PRN Reason: Nausea and Vomiting Selegiline HCl (Selegiline Hcl 5 Mg Capsule) 5 mg PO BID@0800,1200 [facility] Last Admin: 08/15/23 07:55 Dose: 5 mg Documented By: RITA Sodium Chloride (0.9 % Sodium Chloride Flush 3 Ml Syringe) 3 ml IVFLUSH QSHIFT [facility] Last Admin: 08/15/23 07:56 Dose: Not Given Documented By: RITA Non-Admin Reason: No Access Vitamin D (Cholecalciferol (Vitamin D3) 25 Mcg Tablet) 50 mcg PO DAILY [facility] Last Admin: 08/15/23 07:55 Dose: 50 mcg Documented By: RITA Labs 08/11/23 05:55 08/11/23 05:55 Microbiology Microbiology Results: Microbiology 08/10/23 03:51 Blood Culture - Final Blood - Venous No growth after 5 days. 08/10/23 03:51 Blood Culture - Final Blood - Venous No growth after 5 days. Assessment and Plan (1) Acute UTI: Status: Acute Plan 83F PMH Parkinson's, hypothyroidism, recent right hip fracture presented with acute confusion Acute metabolic encephalopathy Likely due to acute UTI resolved urine culture grew ecoli, complete 1 more day ceftin back to baseline recent hip fracture follow up ortho Parkinson's with dementia Continue carbidopa levodopa Hypothyroid Synthroid DVT prophylaxis with heparin Full code Reason for continued hospitalization: medically stable, awaiting placement/appeal Time Spent With Patient Time: Total time managing care of this patient today ____ minutes. Quality Stroke Does the patient have a stroke diagnosis?: No VTE Prior VTE?: No VTE Risk Level:: Medical - moderate - high VTE Device Contraindication: Treatment Not Indicated VTE Drug Contraindication: N/A - Med Ordered
--- NOTE | 2023-08-15 12:26 | MHC.CM.PN ---
CM MET WITH PTS TODAY HE DID SPEAK WITH [facility] TODAY AND UNDERSTOOD PT HAD TO DC BY 1200 HOURS TODAY HE IS AGREEABLE TO [facility] FOR [facility] [place] HAS REQUESTED PT BRING HER NUPLAZID FROM HOME MED WAS HERE WITH PHARMACY, RN OBTAINED IT AND GAVE IT TO PTS WHO ALSO BROUGHT IN EVERYTHING HE HAD LEFT AT HOME PER DISCUSSION WITH , REFERRALS WERE MADE TO [facility] REQUESTING THEY FOLLOW PTS STR STAY FOR POST REHAB SERVICES. PTS ALSO STATED HE IS CONCERNED THE NUPLAZID HAS MADE PT WORSE, HE SAYS IT WAS ADDED WHILE SHE WAS AT [facility] AND HAS NEVER BEEN REVIEWED BY HER NEUROLOGIST. HE REQUESTED A FOLLOW UP NEURO APPT BE MADE. APPT MADE BY MARK FOR 08/19, ENTERED INTO CHART
== END 2023-08-15 11:53 | disposition skilled nursing facility (03) | DRG 689 ==
LOC: HO.ED 04:32 → HO.EDOVER 04:51 → HO.S3 12:20
PROVIDERS: Admitting Provider Internal Medicine; Emergency Provider Emergency Medicine Emergency Medical Services; PCP Family Medicine; Visit Provider Internal Medicine
DX: N39.0 Urinary tract infection, site not specified (principal); G93.41 Metabolic encephalopathy; F02.80 Dementia in other diseases classified elsewhere, unspecified severity, without behavioral disturbance, psychotic disturbance, mood disturbance, and anxiety; B96.20 Unspecified Escherichia coli [E. coli] as the cause of diseases classified elsewhere; E03.9 Hypothyroidism, unspecified; G20.A1 Parkinson's disease without dyskinesia, without mention of fluctuations; Z87.891 Personal history of nicotine dependence; Z79.890 Hormone replacement therapy; Z79.899 Other long term (current) drug therapy
CPT/HCPCS: 36415; 73552; 80048; 80053; 81001; 83605; 85025; 85027; 87040; 87086; 87088; 87186; 97162; 99285; J0696; J1643; J2060

== ENCOUNTER → 2023-08-10 04:47 | Outpatient (BNV) | payer MEDICARE, OTHER, SELFPAY | PROVIDERS: Admitting Provider Internal Medicine; Emergency Provider Emergency Medicine Emergency Medical Services; PCP Family Medicine; Visit Provider Internal Medicine | DX: N39.0 Urinary tract infection, site not specified (principal) | CPT/HCPCS: 99223; 99231; 99232; 99239; 99499 ==

== ENCOUNTER → 2023-08-10 04:47 | Outpatient (BNV) | payer MEDICARE, OTHER, SELFPAY | PROVIDERS: Admitting Provider Internal Medicine; Emergency Provider Emergency Medicine Emergency Medical Services; PCP Family Medicine; Visit Provider Physician Assistant | DX: S72.341A Displaced spiral fracture of shaft of right femur, initial encounter for closed fracture (principal) | CPT/HCPCS: 99024; 99212 ==

== ENCOUNTER 2023-08-11 09:18 | Outpatient (REF) | payer MEDICARE, OTHER, SELFPAY | END 2023-08-11 09:19 | disposition home or self-care (01) | LOC: HO.HOSX 09:18 | PROVIDERS: Visit Provider Physician Assistant | DX: Z13.89 Encounter for screening for other disorder (principal) ==

== ENCOUNTER 2023-08-19 11:07 | Outpatient (AMB) | payer MEDICARE, OTHER, SELFPAY ==
--- NOTE | 2023-08-19 11:12 | MHC.OFFVIS ---
Intake Vital Signs 08/19/23 11:26 Height 5 ft 3 in Weight 130 lb BMI 23.0 BP 112/68 Blood Pressure Location Rt brachial Position Supine Respiration 15 Pulse 88 Pulse Source Palpation Intake Visit Reasons: 4m follow up parkinsons-Confirmed Intake Note: Pt presents to the office for a 4 month follow up of Parkinson's disease. Pt states she hasn't been doing so well. Suraj is the historian today. He reports a steady decline in her mental status. He reports she was at [facility] where she was treated for recurrent UTIs and two hip fractures. She is improving with PT/OT. Her sleeping patterns have been altered, he believes this stems from her UTIs. Allergies alendronate sodium [From Fosamax] Adverse Reaction (Unknown, Verified 08/19/23 11:21) Unknown Medication List - Last Reconciled 08/19/23 by FATOUMATA Florian acetaminophen 650 mg PO TID ascorbic acid (vitamin C) 500 mg PO DAILY carbidopa-levodopa 23.75-95 mg ER (Rytary) 4 caps PO DAILY@0800 carbidopa-levodopa 23.75-95 mg ER (Rytary) 3 caps PO BID@1200,1800 carbidopa-levodopa 23.75-95 mg ER (Rytary) 1 cap PO BID cefuroxime axetil 250 mg PO Q12H cefuroxime axetil 250 mg PO BID cholecalciferol (vitamin D3) 50 mcg PO DAILY enoxaparin 40 mg (0.4 mL) subcut Q24H 42 days ferrous sulfate 324 mg PO DAILY levothyroxine 75 mcg PO DAILY@0600 mecobalamin (vitamin B12) 1,000 mcg PO DAILY oxycodone 5 mg PO Q6H PRN pimavanserin (Nuplazid) 34 mg PO DAILY 30 days pimavanserin (Nuplazid) 34 mg PO DAILY selegiline HCl 5 mg PO BID 30 days selegiline HCl 5 mg PO BID HPI HPI Comments History of Present Illness Details 83-yr-old female presents for f/u visit, accompanied by her . Pt is on stretcher. Since the last visit, pt sustained afall resulting in a right hip fx, for which she underwent right ORIF. She went to rehab, and unfortunately sustained another fall resulting in a right femoral fx, requiring a f/u right ORIF. Pt has since been in rehab. Per , she has had recurrent UTIs. She has been having increased confusion and hallucinations. She was started on Nuplazid while in the previous fpc, however prior auth was never obtained so we have provided samples. So far, pt has consistently taken the Nuplazid for about 3 weeks, and is not sure if it is having any effect quite yet. Pt is requiring assist w/ ADLs. She is currently NWB on RLE. Her wonders if we can look at adjusting her Rytary regimen. 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 [facility] Do you presently have visiting nurse or other home services: Yes Alcohol intake: current Alcohol intake frequency: does not drink Alcohol type: hard liquor Patient Tobacco Use Status: Former Tobacco user Tobacco use type: Cigarette Cigarettes Per Day: 4 Years Smoked: 35 Second Hand Smoke Exposure: No Advance Directives Date on File: 08/10/23 service: No Current occupational status: retired and disabled 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 Pt able to identy President Og as president. Expression: Decreased Voice: Soft Tremor: None Dyskinesia: None FFM: Bradykinesia Foot taps: Unable to assess Gait: Unable to assess Psych: Pleasant affect Assessment & Plan Assessment & Plan (1) Parkinson's disease: Code(s): G20 - Parkinson's disease (2) REM sleep behavior disorder: Code(s): G47.52 - REM sleep behavior disorder (3) Fracture, intertrochanteric, right femur: Code(s): S72.141A - Displaced intertrochanteric fracture of right femur, initial encounter for closed fracture Plan Adjust Rytary From: Rytary 23.75-95mg 4 caps qam and 3 caps bid To: Rytary 61.25-245mg cap- 1 cap QID (in hopes this lessens risk for hallucinations)- samples given. Continue Selegiline 5mg bid Continue Nuplazid 34mg qd - samples given. Increase mobility as able per ortho. f/u in 3 months or sooner prn. Medications: New carbidopa-levodopa 61.25-245 mg ER (Rytary) at 7:30am, 11:30am, 4:30pm, 8pm 1 cap PO QID 30 days 120 caps 6RF Coding Level of Care Code Est Pt Level 4 (88611) Diagnoses Parkinson's disease G20 REM sleep behavior disorder G47.52 Fracture, intertrochanteric, right femur S72.141A
[2023-08-19 11:26] VITALS: BP 112/68; PULSE 88; RESP 15; BMI 23.0
== END 2023-08-19 12:13 | disposition home or self-care (01) ==
PROVIDERS: Visit Provider Nurse Practitioner Family
DX: G20.A1 Parkinson's disease without dyskinesia, without mention of fluctuations (principal); G47.52 REM sleep behavior disorder; S72.141A Displaced intertrochanteric fracture of right femur, initial encounter for closed fracture; R29.6 Repeated falls
CPT/HCPCS: 99214

== ENCOUNTER → 2023-08-19 11:07 | Outpatient (BNVA) | payer MEDICARE, OTHER, SELFPAY | PROVIDERS: Visit Provider Nurse Practitioner Family | DX: G20.A1 Parkinson's disease without dyskinesia, without mention of fluctuations (principal); G47.52 REM sleep behavior disorder; S72.141A Displaced intertrochanteric fracture of right femur, initial encounter for closed fracture | CPT/HCPCS: 99212 ==

== ENCOUNTER 2023-09-08 12:54 | Outpatient (AMB) | payer MEDICARE, OTHER, SELFPAY ==
--- NOTE | 2023-09-08 13:02 | MHC.OFFVIS ---
Intake Vital Signs 09/08/23 13:05 Height 5 ft 3 in Weight 130 lb BMI 23.0 Intake Visit Reasons: PO-s/p Right femur ORIF-DOS 07/26/23 Intake Note: Suzan 83 yr old female presents today for her P/O right femur ORIF from 07/26/23. States she has no pain and has a pending P.T appt this afternoon. Allergies alendronate sodium [From Fosamax] Adverse Reaction (Unknown, Verified 09/08/23 13:05) Unknown HPI PO-s/p Right femur ORIF-DOS 07/26/23 HPI Details 83-year-old female who presents in the office today 1 month status post right femur fracture internal fixation, which was performed 07/26/[address] Giraldo. The patient reports having no pain while in the office today. She confirms having a physical therapy appointment scheduled for this afternoon (09/08/2023). 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 [facility] Do you presently have visiting nurse or other home services: Yes Alcohol intake: current Alcohol intake frequency: does not drink Alcohol type: hard liquor Patient Tobacco Use Status: Former Tobacco user Tobacco use type: Cigarette Cigarettes Per Day: 4 Years Smoked: 35 Second Hand Smoke Exposure: No Advance Directives Date on File: 08/10/23 service: No Current occupational status: retired and disabled 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 No signs of infection. Able to perform straight leg raise with weakness and tremoring due to Parkinson?s. Good internal and external rotation. NVI. Assessment & Plan Assessment & Plan (1) Fracture, intertrochanteric, right femur: Comment: Right femur fracture internal fixation, 07/26/2023 [place] Code(s): S72.141A - Displaced intertrochanteric fracture of right femur, initial encounter for closed fracture Qualifiers: Encounter type: subsequent encounter Fracture alignment: nondisplaced Fracture healing: with routine healing Fracture type: closed Qualified Code(s): S72.144D - Nondisplaced intertrochanteric fracture of right femur, subsequent encounter for closed fracture with routine healing (2) Parkinson's disease: Code(s): G20 - Parkinson's disease Plan Ms. Lindo is an 83-year-old female who presents in the office today 1 month status post right femur fracture internal fixation, which was performed 07/26/[address] Giraldo. The patient reports having no pain while in the office today. She confirms having a physical therapy appointment scheduled for this afternoon (09/08/2023). The patient will continue to work with physical therapy on glute, quad, core strengthening, and gait training. Follow up will be in 6 weeks, or sooner if needed. X-rays of the right femur obtained while in the office today and reviewed by me, Alina Oliveira PA-C, revealed intact orthopedic hardware with routine healing. Patient Instructions: Scribed for Alina Oliveira PA-C by Nicole Cerda medical physiologist, on 09/08/2023 at 12:56 pm, EST. Coding Level of Care Code Global (98763) Diagnoses Closed nondisplaced intertrochanteric fracture of right femur with routine healing, subsequent encounter S72.144D Encounter type: subsequent encounter Fracture alignment: nondisplaced Fracture healing: with routine healing Fracture type: closed Parkinson's disease G20
[2023-09-08 13:05] VITALS: BMI 23.0
== END 2023-09-08 13:17 | disposition home or self-care (01) ==
PROVIDERS: PCP Family Medicine; Visit Provider Physician Assistant
DX: S72.144D Nondisplaced intertrochanteric fracture of right femur, subsequent encounter for closed fracture with routine healing (principal)
CPT/HCPCS: 99024

== ENCOUNTER → 2023-09-08 12:54 | Outpatient (BNVA) | payer MEDICARE, OTHER, SELFPAY | PROVIDERS: PCP Family Medicine; Visit Provider Physician Assistant ==

== ENCOUNTER 2023-10-20 09:28 | Outpatient (REF) | payer MEDICARE, OTHER, SELFPAY | END 2023-10-20 09:29 | disposition home or self-care (01) | LOC: HO.HOSX 09:28 | PROVIDERS: Visit Provider Physician Assistant | DX: Z13.89 Encounter for screening for other disorder (principal) ==

== ENCOUNTER 2023-12-06 12:51 | Outpatient (AMB) | payer MEDICARE, OTHER, SELFPAY ==
--- NOTE | 2023-12-06 13:00 | A.OFFVIS_ITS ---
Intake Vital Signs 12/06/23 13:09 Height 5 ft 3 in Weight 118 lb 2 oz BMI 20.9 BP 120/70 Blood Pressure Location Rt brachial Position Sitting Pulse 78 Pulse Source Pulse Oximeter Pulse Oximetry (%) 99 Oxygen Delivery Method Room Air Intake Visit Reasons: 4m follow up parkinsons Intake Note: Patient presents for four month F/U. sleeping a lot more and questions on meds Allergies alendronate sodium [From Fosamax] Adverse Reaction (Unknown, Verified 12/06/23 13:04) Unknown Medication List - Last Reconciled 12/06/23 by FATOUMATA Florian acetaminophen 650 mg PO TID ascorbic acid (vitamin C) 500 mg PO DAILY carbidopa-levodopa 61.25-245 mg ER (Rytary) 1 cap PO QID 30 days cefuroxime axetil 250 mg PO Q12H cefuroxime axetil 250 mg PO BID cholecalciferol (vitamin D3) 50 mcg PO DAILY enoxaparin 40 mg (0.4 mL) subcut Q24H 42 days ferrous sulfate 324 mg PO DAILY levothyroxine 75 mcg PO DAILY@0600 mecobalamin (vitamin B12) 1,000 mcg PO DAILY oxycodone 5 mg PO Q6H PRN pimavanserin (Nuplazid) 34 mg PO DAILY 30 days selegiline HCl 5 mg PO BID 30 days selegiline HCl 5 mg PO BID HPI HPI Comments History of Present Illness Details 83-yr-old female presents for f/u visit, accompanied by her . Pt's current PD medication regimen: Rytary 61.25-245mg QID- 7:30, 11:30, 4:30, 8pm Quetiapine 12.5mg q 12 hrs- 7:30am and 8pm Selegiline 5mg bid- 8am and 8pm Nuplazid 34mg qd- was stopped after a few weeks, seemed to worsen the hallucinations Do medication effects last between doses: No Pt's primary concerns are: They wonder if she needs the quetiapine as much and if the selegiline time should be changed. They are wondering if she would be a candidate for DBS. ADL's: Needs min help. 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 Swallowing: No issues Drooling: None Orthostatic lightheadedness: Denies Constipation: No issues Freezing: Not recently Stiffness: A little stiff- her exercises helps her legs Tremor: None Dyskinetic: The dyskinesia is less Gait: She is not walking much. She cannot walk with a walker- states that she just panics- worried she will fall. Her right leg is prone to cross. She completed home PT in Oct. Falls: She had 1 fall about 1-2 months ago- slid out of a chair- no injuries. Hallucinations: She may see birds in her bedroom. She often sees a cat. These are not bothersome. Memory: Feels it is ok. Some word finding difficulty- such as when describing what she did for the day. Sleep: Sleeping ok. Can be sleepy at times- can fall asleep during the afternoon. Exercise: Doing some PT exercises w/ her SENIOR MEDICAL BILLING SPECIALIST. [facility] Medical History (Updated 12/11/23 @ 21:13 by FATOUMATA Florian) Parkinson's disease Aortic stenosis, mild Hypothyroidism Surgical History Hx of colonoscopy History of hand surgery History of total hip replacement Family History Sister AAA (abdominal aortic aneurysm) Social History Household Members: Spouse Household Members Other:: was a rehab and home for 1 day [facility] Do you presently have visiting nurse or other home services: Yes Alcohol intake: current Alcohol intake frequency: does not drink Alcohol type: hard liquor 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 Patient Tobacco Use Status: Former Tobacco user Tobacco use type: Cigarette Cigarettes Per Day: 4 Years Smoked: 35 Second Hand Smoke Exposure: No Advance Directives Date on File: 08/10/23 service: No Current occupational status: retired and disabled 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 Review of Systems Const All systems reviewed & are unremarkable except as noted in HPI and below Physical Exam Vital Signs: Last Vital Signs Pulse 78 12/06/23 13:09 BP 120/70 12/06/23 13:09 Pulse Ox 99 12/06/23 13:09 Oxygen Delivery Method Room Air 12/06/23 13:09 BMI result Body Mass Index 20.9 Const General: cooperative and no acute distress Resp Effort & Inspection: normal respiratory effort and able to speak in complete sentences Neuro Other: General: A&O Expression: Decreased Voice: Soft Tremor: None Dyskinesia: None FFM: Bradykinesia Foot taps: Bradykinesia Gait: Sitting upright in w/c Psych: Pleasant affect Assessment & Plan Assessment & Plan (1) Parkinson's disease with dyskinesia: Code(s): G20.B1 - Parkinson's disease with dyskinesia, without mention of fluctuations (2) REM sleep behavior disorder: Code(s): G47.52 - REM sleep behavior disorder (3) Hallucinations: Code(s): R44.3 - Hallucinations, unspecified Plan Discussed DBS risks and benefits. Advised that we would need to obtain a baseline neuro-psych evaluation, as DBS can exacerbate cognitive difficulties. Order for neuro-psych eval initiated. Continue Rytary 61.25-245mg cap- 1 cap QID- 7:30, 11:30, 4:30, 8pm- pt is having less dyskinesia and hallucinations- though is now on bid quetiapine. Continue Selegiline 5mg bid- change from 8am and 8pm to 8 am and 12pm. May reduce Quetiapine 12.5mg from q 12 hrs (7:30am and 8pm) to 12.5mg qhs. Stopped Nuplazid 34mg qd - felt increased hallucinations, but possibly did not try long enough. Pt would benefit from resuming PT as she is not walking in any meaningful capacity.- pt's will call the home care company she was just discharged from to see if she can resume through them. If not, we can make a new referal. f/u in 3 months or sooner prn. Orders: Referrals Neuropsychiatry Referral G20 - Parkinson's disease, G47.52 - REM sleep behavior disorder Medications: New quetiapine 12.5 mg (1/2 x 25 mg) PO BEDTIME 15 tabs 3RF 30 days Discontinued pimavanserin (Nuplazid) Discontinued Reason: Patient no longer taking 34 mg PO DAILY 30 days 30 caps 6RF Coding Level of Care Code Est Pt Level 4 (19222) Diagnoses Parkinson's disease with dyskinesia G20.B1 REM sleep behavior disorder G47.52 Hallucinations R44.3
[2023-12-06 13:09] VITALS: BP 120/70; PULSE 78; O2SAT 99; BMI 20.9
== END 2023-12-06 14:01 | disposition home or self-care (01) ==
PROVIDERS: PCP Family Medicine; Visit Provider Nurse Practitioner Family
DX: G20.B1 Parkinson's disease with dyskinesia, without mention of fluctuations (principal); G47.52 REM sleep behavior disorder; R44.3 Hallucinations, unspecified
CPT/HCPCS: 99214

== ENCOUNTER → 2023-12-06 12:51 | Outpatient (BNVA) | payer MEDICARE, OTHER, SELFPAY | PROVIDERS: PCP Family Medicine; Visit Provider Nurse Practitioner Family | DX: G20.B1 Parkinson's disease with dyskinesia, without mention of fluctuations (principal); G47.52 REM sleep behavior disorder; R44.3 Hallucinations, unspecified; Z79.899 Other long term (current) drug therapy | CPT/HCPCS: 99212 ==

== ENCOUNTER → 2024-02-28 20:30 | Outpatient (REF) | payer MEDICARE, OTHER, SELFPAY | LOC: HO.SL 20:30 | PROVIDERS: Visit Provider Nurse Practitioner Family | DX: G47.33 Obstructive sleep apnea (adult) (pediatric) (principal); G47.19 Other hypersomnia | CPT/HCPCS: 95810 ==

== ENCOUNTER → 2024-02-28 20:30 | Outpatient (BNV) | payer MEDICARE, OTHER, SELFPAY | PROVIDERS: Visit Provider Psychiatry & Neurology Neurology | DX: G47.33 Obstructive sleep apnea (adult) (pediatric) (principal) | CPT/HCPCS: 95810 ==

== ENCOUNTER 2024-03-27 10:20 | Outpatient (AMB) | payer MEDICARE, OTHER, SELFPAY ==
--- NOTE | 2024-03-27 10:35 | MHC.OFFVIS ---
Vital Signs 03/27/24 10:48 Height 5 ft 3 in Weight 120 lb BMI 21.3 BP 120/74 Blood Pressure Location Rt brachial Position Sitting Pulse 90 Pulse Source Pulse Oximeter Pulse Oximetry (%) 97 Oxygen Delivery Method Room Air Intake Visit Reasons: 4 mo f/u- Conf w/address Intake Note: Patient presents for 4 months f/u. Doing a little bit better than last visit. Still having some tremors. Allergies alendronate sodium [From Fosamax] Adverse Reaction (Unknown, Verified 03/27/24 10:43) Unknown Medication List - Last Reconciled 03/27/24 by FATOUMATA Florian acetaminophen 650 mg PO TID ascorbic acid (vitamin C) 500 mg PO DAILY carbidopa-levodopa 61.25-245 mg ER (Rytary) 1 cap PO QID 30 days cholecalciferol (vitamin D3) 50 mcg PO DAILY levothyroxine 75 mcg PO DAILY@0600 mecobalamin (vitamin B12) 1,000 mcg PO DAILY memantine 7 mg PO DAILY 30 days selegiline HCl 5 mg PO BID 30 days HPI Comments Details: 83-yr-old female presents for f/u visit, accompanied by her . Pt had interval neuropsych eval- report states pt has mild-moderate dementia, they felt Lewey Body. Follow-up labs from January- Ferritin 82, TSH- NL, H&H NL, iron studies- NL. Follow-up in-lab sleep study which showed AHI 18/hr, O2 taqueria 74% (SpO2 < 88% x's < 2 min) and average SpO2 was 94%, PLMS 197/hr, and PLMS arousal index 12/hr. Pt was started on memantinine 7mg ER in January- tolertaing well. Overall she is doing better. She did stop quetiapine. ADL's: Needs some help. Does have a SUPERVISOR BUFFING AND PASTING. Swallowing: No issues Drooling: None Orthostatic lightheadedness: Denies Constipation: No issues Freezing: Not recently Stiffness: A little stiff- her exercises helps her legs Tremor: None during the day- just occasionally has leg tremor at night. Dyskinetic: The dyskinesia is less Gait: She is walking more w/ PT. They are encouraging her to use walker more than PT. Falls: None. Hallucinations: Mild, not bothersome. Memory: Feels it is ok. Some word finding difficulty- such as when describing what she did for the day. Sleep: Sleeping ok. Can be sleepy at times- can fall asleep during the afternoon. Exercise: Doing some PT exercises w/ her SUPERVISOR BUFFING AND PASTING. She can tire quickly. Looking forward to opening up her pool for the suumer. [facility] Medical History (Updated 03/27/24 @ 11:38 by FATOUMATA Florian) Parkinson's disease Aortic stenosis, mild Hypothyroidism Surgical History Hx of colonoscopy History of hand surgery History of total hip replacement Family History Sister AAA (abdominal aortic aneurysm) Social History Household Members: Spouse Household Members Other:: was a rehab and home for 1 day Housing: [facility] Do you presently have visiting nurse or other home services: Yes Alcohol intake: current Alcohol intake frequency: does not drink Alcohol type: hard liquor 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 Patient Tobacco Use Status: Former Tobacco user Tobacco use type: Cigarette Cigarettes Per Day: 4 Years Smoked: 35 Second Hand Smoke Exposure: No Advance Directives Date on File: 08/10/23 service: No Current occupational status: retired and disabled 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 Review of Systems Const All systems reviewed & are unremarkable except as noted in HPI and below Physical Exam Vital Signs: Last Vital Signs Pulse 90 03/27/24 10:48 BP 120/74 03/27/24 10:48 Pulse Ox 97 03/27/24 10:48 Oxygen Delivery Method Room Air 03/27/24 10:48 BMI result Body Mass Index 21.3 Const General: cooperative and no acute distress Resp Effort & Inspection: normal respiratory effort and able to speak in complete sentences Neuro Other: General: A&O Expression: Decreased Voice: Soft Tremor: None Dyskinesia: None FFM: Bradykinesia Tone: BUE rigidity Foot taps: Bradykinesia Gait: Sitting upright in w/c Psych: Pleasant affect Assessment & Plan Assessment & Plan (1) Moderate obstructive sleep apnea: Code(s): G47.33 - Obstructive sleep apnea (adult) (pediatric) Category: Medical (2) Parkinson's disease with dyskinesia: Code(s): G20.B1 - Parkinson's disease with dyskinesia, without mention of fluctuations Category: Medical (3) Hallucinations: Code(s): R44.3 - Hallucinations, unspecified Category: Medical (4) Dementia in Parkinson's disease: Code(s): G20.A1 - Parkinson's disease without dyskinesia, without mention of fluctuations; F02.80 - Dementia in other diseases classified elsewhere, unspecified severity, without behavioral disturbance, psychotic disturbance, mood disturbance, and anxiety Category: Medical Plan Reviewed neuro-psych eval - mild-moderate dementia. Reviewed in-lab PSG- notable for moderate sleep apnea and PLMS- pt's ferritin level, TSH, and H&H are WNL. Pt recently held her iron. May continue to hold. Monitor PLMS, iron studies. Start APAP 5-20 cmH2O nightly > 4 hrs. Will increase Memantine ER from 7mg to 14mg qd. ? Continue Rytary 61.25-245mg cap- 1 cap QID- 7:30, 11:30, 4:30, 8pm- pt is having less dyskinesia. Continue Selegiline 5mg bid- change from 8am and 8pm to 8 am and 12pm. Pt page sstopped Quetiapine- no botehrosme hallucinations- will monitor. Stopped Nuplazid 34mg qd - felt increased hallucinations, but possibly did not try long enough. ? Continue PT. ? f/u in 6 months or sooner prn. Medications: New memantine 14 mg PO ONCE 30 days 30 ea 6RF Discontinued memantine Discontinued Reason: Doctor's Order 7 mg PO DAILY 30 days 30 ea 3RF Scribe Plan - Not visible on output: Discussed importance of regular physical activity for management of PD s/s, such as walking, cycling, boxing. Discussed benefits of dopaminergic therapies, such as reduced tremor and improved motor symptoms. Discussed potential adverse effects of dopaminergic therapies, including but not limited to nause/GI upset, orthostatic lightheadedness, dyskineisas, sleepiness, hallucinations. Pt is advised to establish care with a fuel storage technician due to slight increase risk of melanoma seen in patient's with Parkinson's disease. Coding Level of Care Code Est Pt Level 4 (19911) Diagnoses Moderate obstructive sleep apnea G47.33 Parkinson's disease with dyskinesia G20.B1 Hallucinations R44.3 Dementia in Parkinson's disease G20.A1; F02.80
[2024-03-27 10:48] VITALS: BP 120/74; PULSE 90; O2SAT 97; BMI 21.3
== END 2024-03-27 11:35 | disposition home or self-care (01) ==
PROVIDERS: PCP Family Medicine; Visit Provider Nurse Practitioner Family
DX: G47.33 Obstructive sleep apnea (adult) (pediatric) (principal); G20.B1 Parkinson's disease with dyskinesia, without mention of fluctuations; R44.3 Hallucinations, unspecified; G20.A1 Parkinson's disease without dyskinesia, without mention of fluctuations; F02.80 Dementia in other diseases classified elsewhere, unspecified severity, without behavioral disturbance, psychotic disturbance, mood disturbance, and anxiety
CPT/HCPCS: 99214

== ENCOUNTER → 2024-03-27 10:20 | Outpatient (BNVA) | payer MEDICARE, OTHER, SELFPAY | PROVIDERS: PCP Family Medicine; Visit Provider Nurse Practitioner Family | DX: G20.B1 Parkinson's disease with dyskinesia, without mention of fluctuations (principal); G47.33 Obstructive sleep apnea (adult) (pediatric); R44.3 Hallucinations, unspecified; Z79.899 Other long term (current) drug therapy | CPT/HCPCS: 99212 ==

== ENCOUNTER 2024-10-15 13:44 | Outpatient (AMB) | payer MEDICARE, OTHER, SELFPAY ==
--- NOTE | 2024-10-15 13:41 | MHC.OFFVIS ---
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 Pt and unable to operate [employer] technology. Pt and report pt is doing relatively well. Pt's could not bring her into the office today d/t his own health issues. They decreased the Rytary from 1 cap QID to 1 cap TID- which they feel is working well. She stopped memantine 14mg ER- they are usnure why. Pt states she tried the APAP machine but did not find much benefit of it, so stopped after a few days. ADL's: Needs some help. Does have a RISK CONTROL FIELD REPRESENTATIVE. Swallowing: No issues Drooling: None Orthostatic lightheadedness: Denies Constipation: No issues Freezing: Not recently Stiffness: Denies Tremor: Maybe shaky when she stands up. Dyskinetia: Pt denies noticing this Gait: She is walking w/ her walker. Falls: None. Hallucinations: Mild, not bothersome. Memory: Feels it is ok. Some word finding difficulty- stable Sleep: Sleeping ok. Exercise: Doing some PT exercises. [facility] Medical History Parkinson's disease Aortic stenosis, mild Hypothyroidism Surgical History Hx of colonoscopy History of hand surgery History of total hip replacement Family History Sister AAA (abdominal aortic aneurysm) Social History Household Members: Spouse Household Members Other:: was a rehab and home for 1 day Housing: [facility] Do you presently have visiting nurse or other home services: Yes Alcohol intake: current Alcohol intake frequency: does not drink Alcohol type: hard liquor 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 Patient Tobacco Use Status: Former Tobacco user Tobacco use type: Cigarette Cigarettes Per Day: 4 Years Smoked: 35 Second Hand Smoke Exposure: No Advance Directives Date on File: 08/10/23 service: No Current occupational status: retired and disabled 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 Physical Exam Vital Signs: BMI result Body Mass Index 20.4 Const General: cooperative and no acute distress Resp Effort & Inspection: normal respiratory effort and able to speak in complete sentences Neuro Other: General: A&O, w/ some mild STM lapses Voice: Soft Psych: Pleasant affect Telehealth Telehealth Telehealth Platform: Telephone Location of provider rendering services: practice address Location of patient: address on file Patient Identification confirmed using: Name, : Yes Telehealth method: voice only (Pt and unable to operate televideo technology.) Patient verbally consented to treatment: Yes Patient verbally consented to billing insurance company: Yes Patient informed of any privacy concerns related to visit: Yes Minutes spent on Phone/Video with Pt.: 14 Assessment & Plan Assessment & Plan (1) Parkinson's disease with dyskinesia: Code(s): G20.B1 - Parkinson's disease with dyskinesia, without mention of fluctuations Category: Medical (2) Moderate obstructive sleep apnea: Code(s): G47.33 - Obstructive sleep apnea (adult) (pediatric) Category: Medical (3) Dementia in Parkinson's disease: Code(s): G20.A1 - Parkinson's disease without dyskinesia, without mention of fluctuations; F02.80 - Dementia in other diseases classified elsewhere, unspecified severity, without behavioral disturbance, psychotic disturbance, mood disturbance, and anxiety Category: Medical Plan Pt stopped APAP 5-20 cmH2O nightly > 4 hrs- will monitor sleep and daytime sleepiness. Pt stopped Memantine ER 14mg qd- unclear why, however pt/ prefer to monitor STM before resuming. Continue Rytary 61.25-245mg cap- 1 cap po TID, if pt becomes more stiff/tremulous increase back to 1 cap QID. Continue Selegiline 5mg bid- 8 am and 12pm. Pt previously stopped Quetiapine- no bothersome hallucinations- will monitor. Previous trials- Nuplazid 34mg qd - felt increased hallucinations, but possibly did not try long enough. Continue home PT exercises. ? f/u in 6 months or sooner prn. Coding Level of Care Code Tele Est Pt Level 4 (05789) Diagnoses Parkinson's disease with dyskinesia G20.B1 Moderate obstructive sleep apnea G47.33 Dementia in Parkinson's disease G20.A1; F02.80
[2024-10-15 13:42] VITALS: BMI 20.4
== END 2024-10-15 15:38 | disposition home or self-care (01) ==
LOC: HO.HSMS 13:44
PROVIDERS: PCP Family Medicine; Visit Provider Nurse Practitioner Family
DX: G20.B1 Parkinson's disease with dyskinesia, without mention of fluctuations (principal); F02.80 Dementia in other diseases classified elsewhere, unspecified severity, without behavioral disturbance, psychotic disturbance, mood disturbance, and anxiety; G47.33 Obstructive sleep apnea (adult) (pediatric)
CPT/HCPCS: 99442

== ENCOUNTER 2024-12-18 14:41 | Inpatient (IN) | payer MEDICARE, OTHER, SELFPAY ==
--- NOTE | ~2024-12-18 | MR_ITS ---
CLINICAL HISTORY: CVA - motion on images, best obtainable MR Brain without gadolinium Comparison: None Findings: Restricted diffusion is noted within the right occipital lobe consistent with acute infarct. Additionally there are multiple small foci of cortical restricted diffusion within the right frontal lobe consistent with acute embolic infarcts. No intracranial mass or hemorrhage. Moderate generalized cerebral volume loss and chronic microvascular ischemic changes in the periventricular and subcortical white matter. No midline shift. No hydrocephalus. Vascular flow voids are intact. Orbital contents are unremarkable. The sinuses and mastoid air cells are clear. No focal bone lesion. No abnormal gradient susceptibility. IMPRESSION: Right occipital lobe acute ischemic infarct. Additionally multiple small foci of restricted diffusion within the right frontal lobe concerning for acute embolic infarcts. Moderate generalized cerebral volume loss and severe chronic microvascular ischemic changes the periventricular and subcortical white matter. This document has been electronically signed by: You Kebede MD on 12/19/2024 21:33:47
--- NOTE | ~2024-12-18 | CT_ITS ---
CLINICAL HISTORY: altered mental status CT head without contrast Comparison: CT/SR - CT HEAD/BRAIN WO IV CON - 08/19/22 12:29 EDT Findings: Advanced involutional change. Moderately severe white matter disease. Small focus of cytotoxic edema within the right posterior parietal lobe. No significant atrophy-like change or white matter disease. There is mucosal thickening within the left sphenoid sinus. The orbits are within normal limits. There is no acute fracture. IMPRESSION: Acute right parietal lobe infarct. This document has been electronically signed by: Elmira Oliver MD on 12/18/2024 18:45:21
--- NOTE | ~2024-12-18 | US_ITS ---
EXAMINATION: US EXTRACRANIAL CAROTID DUPLEX, BILATERAL CLINICAL INFORMATION: CVA. COMPARISON: None available. TECHNIQUE: Real-time ultrasound and Doppler techniques (integrating B-mode 2-D vascular images, Doppler spectral analysis and color-flow Doppler imaging) were utilized to interrogate the extracranial carotid arteries, the vertebral arteries and proximal subclavian arteries bilaterally. The degree of stenosis is determined by criteria similar to NASCET. FINDINGS: Right Side: 1. There is mixed and irregular atherosclerotic plaque seen in the bifurcation/proximal ICA region. 2. The common carotid artery PSV proximally is 85 cm/s and distally 53 cm/s. 3. The proximal internal carotid artery velocities are 78 cm/s systolic and 23 cm/s diastolic. There is spectral broadening. 4. The proximal external carotid artery PSV is 104 cm/s. 5. The vertebral artery shows antegrade flow. 6. The subclavian artery waveforms are triphasic.. Left Side: 1. There is mixed an irregular atherosclerotic plaque seen in the bifurcation/proximal ICA region. 2. The common carotid artery PSV proximally is 74 cm/s and distally 61 cm/s. 3. The proximal internal carotid artery velocities are 101 cm/s systolic and 21 cm/s diastolic. Spectral broadening. 4. The proximal external carotid artery PSV is 106 cm/s. 5. The vertebral artery shows antegrade flow. 6. The subclavian artery waveforms are triphasic. US/US carotid duplex BI IMPRESSION: 1. RIGHT: Irregular mixed plaque. 0-49% stenosis by ultrasound criteria. 2. LEFT: Irregular mixed plaque. 0-49% stenosis by ultrasound criteria. Electronically signed by: Dorian Brunner MD 12/19/2024 08:27 AM EST
--- NOTE | ~2024-12-18 | CT_ITS ---
CLINICAL HISTORY: shortness of breath, cough CT chest without contrast Comparison: None Findings: Normal heart size. Moderate coronary artery calcification. Severe calcification associated with the aortic valve. The visualized thyroid and mediastinum are unremarkable. Small bilateral pleural effusions. Ground-glass opacities and consolidation within the posterior inferior aspects of the bilateral lower lobes. Septal thickening is present. There is a 1 cm lingular nodule on image 36. The visualized upper abdomen is unremarkable. There is a moderate chronic compression fracture at L1. No acute fracture. IMPRESSION: 1. Small bilateral pleural effusions with adjacent atelectasis or infiltrates and mild interstitial edema. 2. There is a 1 cm lingular nodule. Recommend follow-up CT in 3 months. This document has been electronically signed by: Elmira Oliver MD on 12/18/2024 18:51:40
--- NOTE | ~2024-12-18 | XR_ITS ---
CLINICAL HISTORY: cough Chest Radiograph Comparison: 05/26/23 Findings: No cardiomegaly. Normal mediastinal contours. No pneumothorax. Interstitial prominence with central and basilar opacity. Question small left pleural effusion. Normal upper abdomen. No acute fracture. Impression: Suspect mild pulmonary edema. Multifocal infection is considered less likely. This document has been electronically signed by: Ailyn Payne MD on 12/18/2024 17:45:58
[2024-12-18 15:03] VITALS: BP 100/58; BP 101/47; PULSE 90; RESP 18; TEMP 36.4; O2SAT 95; O2SAT 96; BMI 22.5
--- NOTE | 2024-12-18 15:26 | ECG_ITS ---
Test Reason : AMS Blood Pressure : */* mmHG Vent. Rate : 86 BPM Atrial Rate : 86 BPM P-R Int : 228 ms QRS Dur : 76 ms QT Int : 360 ms P-R-T Axes : 57 20 70 degrees QTcB Int : 430 ms Sinus rhythm with 1st degree A-V block Septal infarct (cited on or before 26-Nov-2010) Abnormal ECG When compared with ECG of 26-May-2023 21:23, Questionable change in initial forces of Septal leads Nonspecific T wave abnormality no longer evident in Anterior leads Referred By: Generic ED Physician Electronically Signed By: Mychal Monroe
--- OUTSIDE RECORDS SUMMARY | 2024-12-18 15:33 | XMS_ITS | Data Portability ---
Author Organization [facility], Main Office Address [address], [address] [place] [address] Care Team Providers Care Procedure Rn Name Role Phone MARYMICHELLEMARIZOL RAMA Primary Care Provider FLASHJIA WORLEY - 2ND FLOOR OTHER Assessment No assessment recorded. Plan of Treatment Reminders Order Date Submit Date Provider Last Modified By Organization Details Last Modified Time Details Appointments None recorded. Lab None recorded. Referral None recorded. Procedures None recorded. Surgeries None recorded. Imaging None recorded. Medication Orders oxycodone 5 mg tablet 2022 023 [facility] [address] [place] [address], [address], 3 19:43:25 Patient TargetsNo targets recorded. Patient InstructionsNo instructions recorded. Reason for Referral None Reported. Problems Name Problem SNOMED Code Status Onset Date Resolution Date Notes Provider Name and Address Organization Details Recorded Time Falls 934490830 Active 2022 BIBIANA ALBA NP [address] [facility], [address], [place], [address], [facility] 3 11:36:12 Fracture of neck of femur 4483457 Active 2022 BIBIANA ALBA NP [address] [facility], [address], [place], [address], [facility] 3 11:36:32 Depressive disorder 29803442 Active 2022 BIBIANA ALBA NP [address] [facility], [address], [place], [address], [facility] 3 11:36:55 Anemia 232552388 Active 2022 BIBIANA ALBA NP [address] [facility], [address], [place], [address], [facility] 3 11:49:04 Cigarette smoker 99060626 Active 2022 Elly Phillips MD [address] [facility], [address], [place], [address], [facility] 3 20:00:08 Mild alcohol dependence 549016101 Active 2022 Elly Phillips MD [address] [facility], [address], [place], [address], [facility] 3 20:00:46 Hallucinat ions 2758290 Active 2022 with delusions BIBIANA ALBA NP [address] [facility], [facility] [address], [place], [address], [facility] 3 12:21:13 Fracture of neck of femur 4560650 [facility] 12:[facility] Parkinson' s disease 04141789 Active 2018 [facility] 12:04:34 Vitamin D deficiency 98865469 Active 2018 [facility] 9 12:04:42 Hypothyroi dism 35637637 Active 2018 [facility] 12:04:48 Problem Notes None recorded. Medical Equipment None Reported. Allergies No known drug allergies Medications Name Sig Start Date Stop Date Status Note LastModified by Organization Details LastModified Time oxycodone 5 mg tablet Take 1 tablet every 6 hours by oral route. 023 active Not Available Not Available Not Avai lable Vitals Date Recorded Body height Heart rate Respiratory rate Body temperature Oxygen saturation Oxygen saturation in Arterial blood by Pulse oximetry Systolic blood pressure Diastolic blood pressure Provider Name and Address Organization Details Last Updated DateTime 3 160.02 cm 90 /min 16 /min 98 [degF] 97 % 97 % 123 mm[Hg] 78 mm[Hg] BIBIANA ALBA NP [address] [facility], [address], [place], [address], [facility] 3 13:32:14 Date Recorded Body height Heart rate Respiratory rate Body temperature Oxygen saturation Oxygen saturation in Arterial blood by Pulse oximetry Systolic blood pressure Diastolic blood pressure Provider Name and Address Organization Details Last Updated DateTime 3 160.02 cm 80 /min 16 /min 98.1 [degF] 99 % 99 % 127 mm[Hg] 71 mm[Hg] BIBIANA ALBA NP [address] [facility] [address], [place], [address], [facility] 3 10:55:52 Date Recorded Body height Heart rate Respiratory rate Body temperature Oxygen saturation Oxygen saturation in Arterial blood by Pulse oximetry Systolic blood pressure Diastolic blood pressure Provider Name and Address Organization Details Last Updated DateTime 3 160.02 cm 68 /min 16 /min 98.3 [degF] 98 % 98 % 122 mm[Hg] 58 mm[Hg] Sandra Morse NP [address] [facility] [address], [place], [address], [facility] 3 09:24:44 Date Recorded Body height Body mass index (BMI) Body weight Heart rate Respiratory rate Body temperature Oxygen saturation Oxygen saturation in Arterial blood by Pulse oximetry Systolic blood pressure Diastolic blood pressure Provider Name and Address Organization Details Last Updated DateTime 3 160.02 cm 20.4 kg/m2 24306.1 2 g 67 /min 18 /min 97.9 [degF] 97 % 97 % 128 mm[Hg] 69 mm[Hg] Elly Phillips MD [address] [place] [facility] [address], [place], [address], [facility] 3 17:48:43 Date Recorded Body height Body weight Heart rate Respiratory rate Body temperature Oxygen saturation Oxygen saturation in Arterial blood by Pulse oximetry Systolic blood pressure Diastolic blood pressure Provider Name and Address Organization Details Last Updated DateTime 3 160.02 cm 67353.4 1 g 81 /min 18 /min 98 [degF] 95 % 95 % 123 mm[Hg] 76 mm[Hg] Sandra Morse NP [address] [facility] [address], [place], [address], [facility] 12:39:21 Social History Question Answer Notes LastModified by Organization Details LastModified Time Tobacco Smoking Status Current Some Day Smoker Sandra Morse, PIETRO [address] [facility], [address], [place], [address], [facility] 07/31/2023 10:43:08 Do You Have An Advance Directive? Yes Information not available 06/15/2023 What Is Your Level Of Alcohol Consumption? Moderate Information not available 06/16/2023 How Many Times Per Week Do You Consume Alcohol? 3-4 Times Per Week Says She's Cut Ack On This Too, Says She Drinks About Every Other Day. Information not available 08/01/2023 How Many Years Have You Consumed Alcohol? 60 Information not available 06/16/2023 What Is Your Code Status? Full Code Information not available 06/15/2023 Where Do You Live? SingleLevelHouse Lives At Home With , 2-3 Entry Steps, Has Basement, But She Doesn't Go Down There Information not available 06/16/2023 Legal Guardian? 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 06/15/2023 Information not available 06/15/2023 Do You Have An Out Of Hospital DNR? No Information not available 06/16/2023 Have You Ever Been Counseled For Unhealthy Alcohol Use? Yes Information not available 06/16/2023 What Is Your Relationship Status? Information not available 06/16/2023 How Much Tobacco Do You Smoke? 1 PPW She Tells Me She's Cut Way Down, But Has Started Smoking In The House Again. Information not available 08/01/2023 Do You Use Any Illicit Or Recreational Drugs? No Information not available 06/15/2023 Has Tobacco Cessation Counseling Been Provided? Yes Not Interested In Quitting Information not available 08/01/2023 On What Date Was Tobacco Cessation Counseling Provided? 08/01/2023 Information not available 08/01/2023 How Many Years Have You Smoked Tobacco? 65 Information not available 08/01/2023 Do You Or Have You Ever Used Any Other Forms Of Tobacco Or Nicotine? No Information not available 06/15/2023 How Many Days In The Past Year Have You Consumed 4 Or More Drinks? 0 Information not available 06/16/2023 Sex: Female Functional Status None recorded. Mental Status None recorded. Family History Relationship Description Onset Age of this Age Resolved Age Notes LastModified by Organization Details LastModified Time Father No current problems or disability [email or web address] Not available 01/05 11:55:40 Mother No current problems or disability [email or web address] Not available 01/05 11:55:40 Notes:N/C Medical History No medical history recorded. Gynecological HistoryNo gynecological history recorded. Obstetrics History GPAL:G 0 P 0 0 0 0 Immunizations Vaccine Type Date Status Note Provider Nam e and Address Organization Details Recorded Time SARS-COV-2 (COVID-19) vaccine, UNSPECIFIED 2 completed [facility] 06/28/2023 13:39:18 SARS-COV-2 (COVID-19) vaccine, UNSPECIFIED 2 completed [facility] 06/28/2023 13:39:28 SARS-COV-2 (COVID-19) vaccine, UNSPECIFIED 1 completed [facility] 06/28/2023 13:40:14 SARS-COV-2 (COVID-19) vaccine, UNSPECIFIED 1 completed [facility] 06/28/2023 13:40:26 SARS-COV-2 (COVID-19) vaccine, UNSPECIFIED 1 completed Uzma Chino [facility] 06/28/2023 13:40:35 Tdap 2 completed [facility] 06/28/2023 13:41:04 zoster recombinant 9 completed [facility] 06/28/2023 13:41:57 [facility]oster recombinant 9 [facility] 13:42:05 Pneumococcal conjugate PCV 13 8 completed Uzma Magana [facility] 06/28/2023 13:42:32 zoster live 4 completed Uzma Magana [facility] 06/28/2023 13:42:46 Td(adult) unspecified formulation 2 completed Uzma Magana [facility] 06/28/2023 13:43:12 pneumococcal polysaccharide PPV23 8 completed Uzma Magana [facility] 06/28/2023 13:43:28 Influenza, adjuvanted, quadrivalent, PF 3 completed [facility]05/2023 12:23:39 Influenza, adjuvanted, quadrivalent, PF 2 completed Alina Calhoun [facility] 12/29/2023 16:01:49 Past Encounters Encounter ID Performer Location Encounter Start Date Encounter Closed Date Diagnosis/Indication Diagnosis SNOMED-CT Code Diagnosis ICD10 Code Diagnosis Note [id number] Vilma MEJIA [address] [place] [address] 01/05/2019 11:55:50 01/17/2019 12:08:44 Fracture of neck of femur 4780331 S72.002D wbatloveno x x30 d for DVT Pf/u with Dr. Giraldo.PT /OT eval. Parkinson's disease 4904 9000 G20 stable on selegiline , sinemet. Vitamin D deficiency 347 72093 E55.9 stable on supplement ation. Hypothyroidism 33430842 E03.9 [place] [id number] MD MARIA TERESA [address] [place] [address] 01/09/2019 13:32:22 01/17/2019 12:18:12 Fracture of neck of femur 9991504 S72.092D see HPIleft hip fx now s/p nail fixationfo llow ortho recsPT OT eval and treatWBATm onitor for pain control and constipati onlovenox for DVT prophylaxi s Unsteady gait 866095530 R26.81 PT OT eval and treatmonit or fall risk Parkinson's disease 4904 9000 G20 question if contributi ng factor to fallsineme t 25-100 tidmonitor for sx control Hypothyroidism 84209500 E03.8 synthroid 75 mcg qdmonitor tsh prn Anemia due to blood loss 136658050 D50.0 [place] [id number] Vilma Negrete [address] [address] 01/11/2019 11:55:22 01/17/2019 14:34:33 Fracture of neck of femur 7318093 S72.002D wbatloveno x x30 d for DVT Pf/u with Dr. Giraldo.PT /OT eval. Parkinson's disease 4904 9000 G20 stable on selegiline , sinemet. Vitamin D deficiency 347 86983 E55.9 stable on supplement ation. Hypothyroidism 12766677 E03.9 stable [place]othy[place] ine [id number] Vilma Penelope [address] [address] 01/17/2019 15:02:30 01/23/2019 08:27:33 Fracture of neck of femur 2291485 S72.002D wbatloveno x x30 d for DVT Pf/u with Dr. Giraldo.PT /OT eval. Parkinson's disease 4904 9000 G20 stable on selegiline , sinemet. Vitamin D deficiency 347 54908 E55.9 stable on supplement ation. Hypothyroidism 16914834 E03.9 [place] in[place] [id number] Vilma De Leon[address] [address] 01/25/2019 10:07:54 01/30/2019 15:28:44 Fracture of neck of femur 4966631 S72.002D wbatloveno x x30 d for DVT Pf/u with Dr. Giraldo.PT /OT eval. Parkinson's disease 4904 9000 G20 stable on selegiline , sinemet. Vitamin D deficiency 347 93241 E55.9 stable on supplement ation. Hypothyroidism 86333532 E03.9 [place]othy[place] ine [id number] Vilma MEJIA [address] [place] [address] 01/30/2019 15:21:38 02/01/2019 15:29:35 Fracture of neck of femur 7416320 S72.002D wbatloveno x x30 d for DVT Pf/u with Dr. Giraldo.PT /OT eval. RX written for wheeled walker today- Pt will be dischargin g home and is unable to safely ambulate without this device so as to reduce her fall risk given recent hip fracture. Pt is unable to ambulate without a walker currently. Parkinson's disease 4904 9000 G20 stable on selegiline , sinemet. Vitamin D deficiency 347 54082 E55.9 stable on supplement ation. Hypothyroidism 22113313 E03.9 stable [place] levothyrox ine [id number] Vilma HUSAINE [address] [place] [address] 02/02/2019 12:24:21 02/06/2019 11:14:37 Fracture of neck of femur 9081907 S72.002D wbatloveno x x30 d for DVT P completed now.f/u with Dr. Giraldo 02/14 Parkinson's disease 4904 9000 G20 stable on selegiline , sinemet. Vitamin D deficiency 347 80229 E55.9 stable on supplement ation. Hypothyroidism 33567989 E03.9 stable [place] levothyrox ine [id number] [facility] [address] [place] [address] 02/04/2019 10:08:57 02/06/2019 11:18:25 Fracture of neck of femur 6897633 S72.092D see HPIleft hip fx now s/p nail fixationam bulating with walkerclea red for discharge to f/u with ortho Unsteady gait 594661972 R26.81 monitor fall risk Anemia due to blood loss 224395986 D50.0 Post op anemiamoni tor cbc and need for tx Parkinson's disease 4904 9000 G20 sinemet 25-100 tidmonitor for sx control Hypothyroidism 02045804 E03.8 synthroid 75 mcg qdcontinue [id number] PIETRO CORTEZ [address] [place], [place] [address] [address] 06/15/2023 10:18:24 06/17/2023 14:59:16 Falls 609498740 R29.6 PT OT eval and treatfall precaution sfrequent safety checks Fracture o f neck of femur 3488055 S72.001A tylenol 325 mg tidlovenox 40 mg daily till seen by ortho 06/22 Parkinson's disease 4904 9000 G20 rytary 23.75/95 mg er 4 caps in amrytary 23.75/95mg er 3 caps am and pmselegili ne 5 mg bidmonitor for tremors Hypothyroidism 82468721 E03.8 levothyrox ine 75 mcg daily Vitamin D deficiency 347 15207 E55.9 D3 1000 daily Depressive disorder 3548 9007 F32.A seroquel 12.5 mg bid and 25 mg hspsych prnAIMs 0 Anemia 085778844 D64.9 iron dailyvit c 500 dailyB 12 dailymonit or labs [id number] MD MARIA TERESA Sauer ROBERTO [address] [place] [address] [place] [address] 06/16/2023 16:25:01 06/21/2023 15:38:57 Falls 471834211 R29.6 As above.Kevin est issue is poor safety awareness. Fracture o f neck of femur 8949485 S72.044D Continue APAP 650 mg TIDContinu e lovenox 40 mg sq qd for 6 wks post-op, end date 07/08Needs PT/OT for strengthen ing, balance, gait training, safety and function.C ontinue fall precaution s.Monitor for safety.F/U with ortho as planned Parkinson's disease 4904 9000 G20 With dementia and hallucinat ions.Jerome nue Rytary 23.75/95 mg ER 4 caps qAM and 3 caps in afternoon and qhs, and selegiline 5 mg BIDF/U with neuro as planned.Ps ych consult for dementia and hallucinat ions.Jerome nue seroquel 12.5 mg BID and 25 mg qhs. Hypothyroidism 68729958 E03.8 TSH 5.06Contin ue levothyrox ine 75 mcg qdRecheck TSH with FT4 with next labs. Vitamin D deficiency 347 66334 E56.8 Continue vitamin D3 1000 IU qdMonitor as outpt. Anemia 231113681 D64.89 Multifacto rial.Jerome nue FeSO4 324 mg qd with vitamin C 500 mg qd for absorption , and vitamin B12 1000 mcg qd.Monitor labs Cigarette smoker 4618445 7 F17.210 Intermitte nt smoker, no need for nicotine replacemen t at this time.Unabl e to discuss with pt today due to agitation. Mild alcoh ol dependence 795341840 F10.20 Reportedly drinks fairly regularly, but not to excess.But could be contributi ng to fall risk.Jerome nue to discuss with pt and . [id number] PIETRO CORTEZ [address] [place] [address] 06/17/2023 12:19:24 06/21/2023 16:17:57 Parkinson's disease 61267381 G20 rytary 23.75/95 mg er 4 caps in amrytary 23.75/95mg er 3 caps am and pmselegili ne 5 mg bidmonitor for tremors Hallucinations 9569416 R 44.3 nuplazid 34 mg dailystop seroquel when this is started [id number] PIETRO CORTEZ [address] [place] [address] 06/20/2023 12:39:37 06/22/2023 16:56:32 Parkinson's disease 33410558 G20 rytary 23.75/95 mg er 4 caps in amrytary 23.75/95mg er 3 caps am and pmselegili ne 5 mg bidmonitor for tremors Hallucinations 1795632 R 44.3 nuplazid 34 mg dailystop seroquel when this is startedmee t pt where she is and assure her [id number] PIETRO CORTEZ ROBERTO [address] [place] [address] 07/11/2023 13:31:32 07/13/2023 14:09:19 Falls 362932112 R29.6 PT OT eval and treatfall precaution sfrequent safety checks Fracture o f neck of femur 5475753 S72.001A tylenol 325 mg tidlovenox 40 mg daily till seen by ortho 8/9 Parkinson's disease 4904 9000 G20 rytary 23.75/95 mg er 4 caps in amrytary 23.75/95mg er 3 caps am and pmselegili ne 5 mg bidmonitor for tremors Hypothyroidism 44570587 E03.8 levothyrox ine 75 mcg daily Vitamin D deficiency 347 36982 E55.9 D3 1000 daily Depressive disorder 3548 9007 F32.A seroquel stoppedNup lazid 34 mg dailypsych prnAIMs 0 Anemia 691747448 D64.9 iron dailyvit c 500 dailyB 12 dailymonit or labs Hallucinations 3825178 R 44.3 resolved with nuplazidnu plazid 34 mg dailystop seroquel when this is startedmee t pt where she is and assure her [id number] PIETRO CORTEZ [address] [place] [address] 07/22/2023 10:55:18 07/29/2023 10:05:46 Falls 630675743 R29.6 PT OT eval and treatfall precaution sfrequent safety checks Fracture o f neck of femur 6499493 S72.001A tylenol 325 mg tidlovenox 40 mg daily till seen by ortho 8/9 Parkinson's disease 4904 9000 G20 rytary 23.75/95 mg er 4 caps in amrytary 23.75/95mg er 3 caps am and pmselegili ne 5 mg bidmonitor for tremors Hypothyroidism 05265163 E03.8 levothyrox ine 75 mcg daily Vitamin D deficiency 347 10503 E55.9 D3 1000 daily Depressive disorder 3548 9007 F32.A seroquel stoppedNup lazid 34 mg dailypsych prnAIMs 0 Anemia 005756460 D64.9 iron dailyvit c 500 dailyB 12 dailymonit or labs Hallucinations 8420136 R 44.3 resolved with nuplazidnu plazid 34 mg dailystop seroquel when this is startedmee t pt where she is and assure her [id number] Sandra Morse NP [facility] [address] [facility] [place] [address] 07/31/2023 09:23:45 08/02/2023 09:21:10 Falls 030173084 R29.6 PT OT eval and treatfall precaution sfrequent safety checkshigh fall risk Fracture o f neck of femur 4701022 S72.001A tylenol 650mg tidrefuses other pain medication s todayloven ox 40 mg daily, unsure of what date till, ? 42 days in computerfu with ortho Dr. Giraldo and request clarificat ion in 2 weeksWBATP T OT treat and eval for gait training, strengthen ing, adlsCBC BMP weeklymoni tordressin g c/d/i - no showering or tub baths Parkinson's disease 4904 9000 G20 rytary 23.75/95 mg er 4 caps in amrytary 23.75/95mg er 3 caps am and pmselegili ne 5 mg bidmonitor for tremors Hypothyroidism 54389380 E03.8 levothyrox ine 75 mcg dailyTSH x 1 to monitor Vitamin D deficiency 347 77960 E55.9 D3 2000 mecobalami n 1000mcg po daily Depressive disorder 3548 9007 F32.A seroquel 12.5 mg bid and 25 mg hsnuplazid 34 mg po dailypsych prnAIMs 0 Anemia 270011137 D64.9 iron dailyvit c 500 dailyB 12 dailymonit or labs Hallucinations 5408567 R 44.3 resolved in hospital per pt? ecoli ua culturemon itor Mild alcoh ol dependence 718117375 F10.20 states drinks 5 beers per day, ;[facility] s/s of withdrawal s noted Cigarette smoker 1125512 7 F17.210 states only smokes 2 cigarettes per monthno nrt, refusesmon itor and support quitting [id number] Elly Phillips MD [address] [place] [address] 08/01/2023 17:39:18 08/03/2023 06:57:14 Fracture of neck of femur 5762597 S72.044D Continue APAP 650 mg TIDContinu e lovenox 40 mg sq qd for 6 wks post-opNee ds PT/OT for strengthen ing, balance, gait training, safety and function.C ontinue fall precaution s.Monitor for safety.F/U with ortho as planned Falls 583978680 R29.6 As above.Kevin est issue is poor safety awareness. Unclear if pt can continue to live at home, will need to be assessed while here. Parkinson's disease 4904 9000 G20 With dementia and hallucinat ions, can also be quite clear at times.Cont inue Rytary 23.75/95 mg ER 4 caps qAM and 3 caps in afternoon and qhs, selegiline 5 mg BID, and Nuplazid 34 mg qd.F/U with neuro as planned.Ps ych consult prn.Seroqu el was stopped when Nuplazid started. Hypothyroidism 98341892 E03.8 TSH 4.75, no FT4 done, but had been 5.06 in 05/2023.Con tinue levothyrox ine 75 mcg qdRecheck TSH with FT4 with next labs. Vitamin D deficiency 347 13558 E56.8 Continue vitamin D3 1000 IU qdMonitor as outpt. Anemia 823266207 D64.89 Multifacto rial. Macrocytic RBCs could indicate EtOH component. Continue FeSO4 324 mg qd with vitamin C 500 mg qd for absorption , and vitamin B12 1000 mcg qd.Monitor labs Cigarette smoker 4365895 7 F17.210 Intermitte nt smoker, no need for nicotine replacemen t at this time.She is not interested in quitting.C ontinue to encourage cessation. Mild alcoh ol dependence 633633171 F10.20 Reportedly drinks fairly regularly, but not to excess.But could be contributi ng to fall risk.Jerome nue to discuss with pt and . [id number] Sandra Morse NP [address] [address] 08/04/2023 12:38:17 08/18/2023 16:18:30 Fracture of neck of femur 3041225 S72.044D Continue start oxycodone 5 mg po q am and q 6 hours prn painAPAP 650 mg TIDlovenox 40 mg sq qd for 6 wks post-op(42 days total)Need s PT/OT for strengthen ing, balance, gait training, safety and function.C ontinue fall precaution s.Monitor for safety.F/U with ortho as planned Falls 062170112 R29.6 As above.Kevin est issue is poor safety awareness. Unclear if pt can continue to live at home, will need to be assessed while here. Parkinson's disease 6669 9000 G20 With dementia and hallucinat ions, can also be quite clear at times.Cont inueRytary 23.75/95 mg ER 4 caps qAM and 3 caps in afternoon and qhs'selegi line 5 mg BIDNuplazi d 34 mg qd.F/U with neuro as planned.Ps ych consult prn.Seroqu el was stopped when Nuplazid started. Hypothyroidism 55790448 E03.8 TSH 4.75, no FT4 done, but had been 5.06 in 05/2023.Con tinue levothyrox ine 75 mcg qdRecheck TSH with FT4 with next labs. Vitamin D deficiency 347 16213 E56.8 Continuevi tamin D3 1000 IU qdMonitor as outpt. Anemia 918238982 D64.89 Multifacto rial.Jerome nue FeSO4 324 mg qdvitamin C 500 mg qd for absorption vitamin B12 1000 mcg qd.Monitor labs Health Concerns Section Related Observation LastModified by Organization Detai ls LastModified Time None Recorded Concern Status LastModified by Organization Details LastModified Time None Recorded Advance Directives Directive Y: Payers Encounter Date Sequence Insurance Name Policy Number Policy Dodd Covered Member ID Dodd Member ID Guarantor Name 07/11/2023 2 [facility] [id number] Suzan Lindo [id number] Suzan Lindo 07/11/2023 1 [place] [employer] Suzan Lindo [id number] Suzan Lindo 07/22/2023 2 [facility] [id number] Suzan Lindo [id number] Suzan Lindo 07/22/2023 1 [place] [employer] Suzan Lindo [id number] Suzan Lindo 07/31/2023 2 [facility] [id number] Suzan Lindo [id number] Suzan Lindo 07/31/2023 1 [place] [employer] Suzan Lindo [id number] Suzan Lindo 08/01/2023 2 [facility] [id number] Suzan Garciatuliohector [id number] Suzan Garciatuliohector 08/01/2023 1 [place] [facility] Suzan Lindo [id number] Suzan Garciatuliohector 08/04/2023 2 [facility] [id number] Suzan Lindo [id number] Suzan Lindo 08/04/2023 1 [place] [facility] Suzan Lindo [id number] Suzan Garciatuliohector Notes Date Note Type Note Provider Name and Address Organization Details Recorded Time 07/11/2023 text/html seen today for 3 0 day routine rounding visit-82 yof admitted to for rehab after presenting to the hospital after a fall with fractured right femur, she underwent ORIF and went to [facility] 05/31. shantelle out 06/11 CAOx2 sitting up in wheelchair, lungs clear, ambulating with PT and walker, her activity has increased, she is tolerating the Nuplazid and no further psychotic or delusional episodes noted or reported BIBIANA ALBA, PI[address] [facility], [address], [place], [address], [employer] 07/11/2023 13:37:18 07/22/2023 text/html seen today for dishcarge summary-82 yof admitted to for rehab after presenting to the hospital after a fall with fractured right femur, she underwent ORIF and went to [facility] 05/31. shantelle out 06/11. CAOx2 sitting up in wheelchair, lungs clear, ambulating with PT and walker, she did the stairs with supervision, her activity has increased, she is tolerating the Nuplazid and no further psychotic or delusional episodes noted or reported BIBIANA ALBA, [address] [facility], [address], [place], [address], [employer] 07/22/2023 10:58:17 07/31/2023 text/html Pt is seen for a n initial visit today. Patient admitted to from [facility] from 07/22-07/29/23 for ORIF of right femur with Dr. Giraldo on 07/26/23 sp anahi-prosthetic femoral shaft fracture. A discharge summary is not available, but medication and lab list is available with note of above. Nursing will attempt to get full discharge packet. Patient is on enoxaparin for 40 meq sc daily for unknown length of time and all other medications were continued. (note in computer for 42 days currently) According to the limited discharge document there is a possible ecoli infection in her urine. No antibiotics ordered and would assume it was treated with clearing of confusion. Will monitor and ask for summary. On exam, Suzan states she is doing well and has no pain. In fact states she is unsure but she was hallucinating seeing people that were not there in the hospital room from the pain meds, but not completely sure. She does not want any other pain medication ordered today. She states she feels she is back to baseline and doing better now and that she fell at home while walking out of a room. She also admits to smoking only 2 cigarettes in the last month and does not want a patch, and states she is quitting. She also admits to drinking a beer a day for many years without withdrawals. She denies pain, chills, fever, fatigue, cough or shortness of breath today. A c/d/i dressing is to her right hip today without staining. SLUMS /, Moss high risk PMH: falls, parkinsons, depression, hypothyroid, vit d def, and right femur fracture MOLST: Full code per pt today but art nutrition short term. Sandra Morse, PI[address] [facility], [address], [place], [address], [facility] [employer] 07/31/2023 10:51:12 08/01/2023 text/html This is an 83 yo woman who is here for rehab after a mechanical fall resulting in a right hip fx around previous ORIF. She ia known to us from stay at other facility 06/14-07/22 after a fall resulting in a right femur fx s/p ORIF. She returned home and later that day she was turning around and lost her balance, tried to catch her, but couldn't. She was brought to the [facility] ED on the night of 07/22. ED eval found New spiral fracture of the right distal femoral diaphysis at the junction of the middle and distal thirds with slight anteromedial displacement of the distal fracture fragment. Of note, this occurs around the intramedullary nail. Early changes of healing of the right intertrochanteric femoral fracture status post intramedullary nail fixation . Labs were non-acute. U/A showed only 0-2 RBCs and 0-5 WBCs, but grew >100,000 e. coli. This was considered colonization and not txed. She did get one dose of cefazolin IV post-op. She was taken to the OR on 07/[address] Giraldo for an Operative Fixation of a distal locking screw on the IM Nail already in place to assist with fracture stabilization . She tolerated procedure well and hgb dropped only a little post-op, not requiring any transfusion. At baseline she has confusion and some delusions, and this continued to be a problem inpt. She was transferred here for further rehab, and possible LTC on 07/29.I wake her from sleep, she wakes easily and is pleasant. I introduce myself, but she thinks I'm her friend Dory and tells me that I fixed up the bedroom real nice. SHe says the hip hurts when they move her, but otherwise is ok. She tells me she hasn't been smoking because she's been in the hospital.Her PMH includes Parkinson's disease with dementia, s/p right femur fx in 05/2023 and refx in 07/2023, hypothyroidism, vitamin D deficiency, mild , cigarette smoker, OP, alcohol use-moderate, frequent falls, and HLD. Elly Phillips MD [address] [place] [address], [address], [place], [address], [facility] 08/01/2023 20:00:12 08/04/2023 text/html Pt is seen for a n acute visit today. Her PMH includes Parkinson's disease with dementia, s/p right femur fx in 05/2023 and refx in 07/2023, hypothyroidism, vitamin D deficiency, mild , cigarette smoker, OP, alcohol use-moderate, frequent falls, and HLD. Patient admitted to from [facility] from 07/22-07/29/23 for ORIF of right femur with Dr. Giraldo on 07/26/23 sp anahi-prosthetic femoral shaft fracture. This is an 83 yo woman who is here for rehab after a mechanical fall resulting in a right hip fx around previous ORIF. She had an admission to rehab from 06/14-07/22 after a fall resulting in a right femur fx s/p ORIF. She was brought to the [facility] ED on the night of 07/22 s/p fall. ED eval found New spiral fracture of the right distal femoral diaphysis at the junction of the middle and distal thirds with slight anteromedial displacement of the distal fracture fragment with intramedullary nail. Labs were non-acute. U/A showed only 0-2 RBCs and 0-5 WBCs, but grew >100,000 e. coli. This was considered colonization and not txed. She did get one dose of cefazolin IV post-op. She was taken to the OR on 07/[address] Giraldo for an Operative Fixation of a distal locking screw on the IM Nail already in place to assist with fracture stabilization . She tolerated procedure well and hgb dropped only a little post-op, not requiring any transfusion. Per summary baseline she has confusion and some delusions. She was transferred to [facility] for further rehab, and possible LTC on 07/29. She is seen for extreme pain today per nursing.On exam she explains, She attempted to work with therapy and she states that put her through the roof . She states the pain medication may make her off, but she is overall agreeable to trial oxycodone in the am and as needed doses. She denies pain, chills, fever, fatigue, cough or shortness of breath today. A c/d/i dressing is to her right lower hip today without staining. MOLST: Full code per pt today but art nutrition short term. Sandra Morse, PI[address] [facility], [address], [place], [address], [facility] 08/17/2023 18:33:47 OBGyn Episode No OBEpisode recorded.
--- OUTSIDE RECORDS SUMMARY | 2024-12-18 15:33 | XMS_ITS | Continuity of Care Document ---
Author Organization [facility] [employer] [facility] [employer] [facility] [employer] Address [address] [place] [place] [address] Care Team Providers Care Signal Technician Name Role Phone MARYLUPE RAMA Primary Care Provider [phone] Assessment Encounter Date Assessment Date Assessment LastModified by Organization Details LastModified Time 11/28/2024 11/28/2024 Goal #1: Measurable goal: Decrease falls, accidents, injuries or prevent choking or aspiration of food or fluids Tasks assigned to caregivers: Place child proof locks for any areas with sharp knives or scissors, cleaning chemicals and all cigarettes and lighters. If Suraj is unable to remember to keep them locked up you may need to have only care givers access these items. Ensure the knobs on the stove are off when caregivers are not there. Keep floors clutter free and frequently used items, drinks and snacks close to Suzan. Each visit from Caregiver will wash feet and put on new web master socks for Suzan to keep on 24/7. Hang reminder signs for Suzan about wearing shoes and socks and for Suraj on how to cut food up smaller than his pinkie nail. Replace or alter threshold to make it easier to transition from room to room. Tasks assigned to [facility] Staff: Arrange for home safety evaluation. Send letter to family from [employer] recommending that they do not allow smoking unless family or caregiver is present and keep those items locked up between uses, possibly even from Bill. Goal #2: Measurable goal: Improve ZBI stress and burden score for Suraj with education on dementia and respite care. Tasks assigned to caregivers: Follow instructions for a safe environment. Continue with plan to support Suzan in the home with 24 hour support when Suraj is out for surgery. Inquire with VA if they can provide any in home support with veterans benefits. Tasks assigned to [employer] Staff: Send written information to Bill because he is TEJON and cannot communicate on the phone or during Zoom call. Goal #4: Measurable goal: Suzan will have a Healthcare Directive and MOLST on file in case of an emergency. Tasks for caregivers: Talk wtih Suraj about upcoming surgery and ensuring that paperwork is completed in case something happens with Suraj's recovery or general health. Tasks for [employer] Staff: Provide forms for family to discuss prior to Dec appointment with Suraj. [email or web address] Not available 11/28/2024 16:53:38 Plan of Treatment Reminders Order Date Submit Date Provider Last Modified By Organization Details Last Modified Time Details Appointments None record ed. Lab None record ed. Referral None record ed. Procedures None record ed. Surgeries None record ed. Imaging None record ed. Medication Orders None record ed. Patient TargetsNo targets recorded. Patient InstructionsNo instructions recorded. Reason for Referral None Reported. Problems Name Problem SNOMED Code Status Onset Date Resolution Date Notes Provider Name and Address Organization Details Recorded Time Parkinson 's disease [id number] Active 024 RONALDO HAAS MD [address], [address] [facility] 10/21/2024 19:02:21 Problem Notes None recorded. Medical Equipment None Reported. Medications Name Sig Start Date Stop Date Status Note LastModified by Organization Details LastModified Time quetiapine 25 mg tablet PRN active Not Available Not Available No t Available levothyroxine 75 mcg tablet active Not Available Not Availabl e Not Available selegiline 5 mg tablet BID active Not Available Not Available Not Available Vitamin D3 active Not Available Not Av ailable Not Available B12 active Not Available Not Availa ble Not Available memantine 7 mg capsule sprinkle,extend ed release 24hr 10/10 completed Not Available Not Available Not Available Rytary 61.25 mg-245 mg capsule,extende d release 3 x a day active Not Available Not Available No t Available Vitals None Recorded Social History None recorded. Functional Status None recorded. Mental Status None recorded. Family History Nothing Reported. Medical History No medical history recorded. Gynecological HistoryNo gynecological history recorded. Obstetrics History GPAL:G 0 P 0 0 0 0 Past Encounters Encounter ID Performer Location Encounter Start Date Encounter Closed Date Diagnosis/Indication Diagnosis SNOMED-CT Code Diagnosis ICD10 Code Diagnosis Note [id number] RONALDO HAAS MD [facility] [address],[place] [place] [address] 11/28/2024 12:19:27 12/10/2024 18:34:25 Dementia 39695553 F03.90 Health Concerns Section Related Observation LastModified by Organization Detai ls LastModified Time None Recorded Concern Status LastModified by Organization Details LastModified Time None Recorded Payers Encounter Date Sequence Insurance Name Policy Number Policy Dodd Covered Member ID Dodd Member ID Guarantor Name 11/28/2024 1 [place] Suzan Lindo [id number] Suzan Lindo Notes Date Note Type Note Provider Name and Address Organization Details Recorded Time 11/28/2024 text/html Method of Check in: {{phone call Video Visit* In person}} Over the past month, the needs outlined above were identified, and care planning was completed. Total time spent this month (in minutes): {{ 60#}} No falls, about 10 lbs of weight loss over the past year. Recommending they get a scale for regular weights. No medication changes or doctor's appointments. Suzan has a cold and she can take Desilum for that for 3 days max. She smokes and is at risk for starting a fire. Suraj continues buy lighters if they take them away. Suzan forgets that she smokes. Suzan is getting into everything and she is losing important papers. Needs Healthcare Directives and MOLST. Suraj may be having cognitive changes, forgets to hang up the phone, charge his cell phone, he is having his surgery on . Needs a doctor to say that they need to lock up the lighters and cigarettes. Caregiver does not think that Method of Check in: {{phone call Video Visit* In person}} Over the past month, the needs outlined above were identified, and care planning was completed. Total time spent this month (in minutes): {{ 60#}} No falls, about 10 lbs of weight loss over the past year, eating less. Recommending they get a scale for regular weights and DIL said they can do that in the kitchen with something for her to hold onto. No medication changes or doctor's appointments. New info with talking meeting with DIL this time. Suzan has a cold and they contact pharmacist for interactions with her Parkinson's Medication. She can take Desilum for that for 3 days max. DIL mentioned that Suzan smokes, has dropped a cigarette once in the past and [employer] identifies her has a high risk in this area. Family is buying some child proof locks because Radha is getting into things under the kitchen sink, bags of flour or cake mix all over the kitchen, etc. Recommended types of childproof locks and that all knives be locked up. Daughter says they can lock it up but Suraj continues to buy lighters when Suzan asks. Sometimes Suzan forgets that she smokes and then Bill will ask her if she needs any cigarettes. Recommended a fall detecting device for both Suraj and Suzan instead of a life alert as Suzan will not remember to press the button. Suzan is getting into everything and she is losing important papers and Suraj doesn't keep things put away or out of reach. forgets to hang up the phone, charge his cell phone so they may not be getting call backs from because of tht. [employer] recommended following up with Suraj's doctor about cognitive changes. Suraj has his surgery on 01/08 and they have overnight care set up with unlicensed aid who comes over and is paid out of pocket. They recommended rehab for Suraj but he declined and wants to get back home after one or two days. PA is working with him for assistance benefits at home, no word from them if Suzan can qualify for any assistance from the [facility]. Suzan needs Healthcare Directives and MOLST. Needs a doctor to say that they need to lock up the lighters and cigarettes. Caregiver does not think that Suzan would go to an ruby on rails developer day program. Interested in respite care- [employer] will find partner in the area to utilize GUIDE funding. Unable to find a wheelchair that fits the layout of the bathroom to use an anti-rollback device per OT. RONALDO HAAS MD [address], [place], [address], [facility] 12/03/2024 20:33:45 OBGyn Episode No OBEpisode recorded.
--- OUTSIDE RECORDS SUMMARY | 2024-12-18 15:33 | XMS_ITS ---
Author Organization [facility] Address Unknown Allergies, Adverse Reactions, Alerts Substance Reaction Status Noted Date Resolved Date Alendronic Acid active 06/14/2023 Problems Problem Status Start Date End Date UNSPECIFIED FRACTURE OF RIGH T FEMUR, SUBSEQUENT ENCOUNTER FOR CLOSED FRACTURE WITH ROUTINE HEALING (Primary) (S72.91XD - ICD-10-CM) ACTIVE 06/14/2023 ENCOUNTER FOR OTHER ORTHOPED IC AFTERCARE (Z47.89 - ICD-10-CM) ACTIVE 06/14/2023 HALLUCINATIONS, UNSPECIFIED (R44.3 - ICD-10-CM) ACTIVE 06/14/2023 REPEATED FALLS (R29.6 - ICD-10-CM) ACTIVE 2018 PARKINSON'S DISEASE (G20 - ICD-10-CM) ACTIVE OTHER LACK OF COORDINATION (R27.8 - ICD-10-CM) ACTIVE 01/04/2019 UNSPECIFIED PROTEIN-CALORIE MALNUTRITION (E46 - ICD-10 -CM) ACTIVE 06/14/2023 WEAKNESS (R53.1 - ICD-10-CM) ACTIVE 01/04/2019 OTHER ABNORMALITIES OF GAIT AND MOBILITY (R26.89 - ICD-10-CM) ACTIVE 01/04/2019 HYPOTHYROIDISM, UNSPECIFIED (E03.9 - ICD-10-CM) ACTIVE 01/04/2019 MUSCLE WEAKNESS (GENERALIZED) (M62.81 - ICD-10-CM) ACT TERRENCE 01/04/2019 ENCOUNTER FOR OTHER SPECIFIE D SURGICAL AFTERCARE (Z48.89 - ICD-10-CM) ACTIVE 01/04/2019 UNSPECIFIED FRACTURE OF LEFT FEMUR, SUBSEQUENT ENCOUNTER FOR CLOSED FRACTURE WITH ROUTINE HEALING (S72.92XD - ICD-10-CM) ACTIVE 01/04/2019 Encounters Encounter Performer Performer Role Encounter Diagnoses Location Date Discharge - Home - Private home/apt. with home health services [facility] 9 05:45 pm EST - 9 01:37 pm EDT Discharge - Discharged to home or self care - Home - Community [facility] 3 03:31 pm EDT - 3 11:52 am EDT Immunizations Vaccine Date Influenza 06/20/2023 01:00 pm EDT Influenza 09/23/2022 12:00 am EST Influenza TB 2 Step Mantoux Skin Test 01/14/2019 0 1:15 pm EST (Shingles) Vaccine 09/21/2019 12:00 am EST PCV13 (Pneumococcal Conjugate)Vaccine 12:00 am EST PPSV23 (Previous Pneumococcal Polysaccha ride)Vaccine Tdap (Tetanus, Diphtheria, Pertussis) 12:00 am EDT SARS-COV-2 (COVID-19) 01/11/2021 12:00 a m EST SARS-COV-2 (COVID-19) 12/14/2020 12:00 a m EST Moderna Covid-19 Booster (SARS-COV-2) [facility] 03/05/2022 12:00 am EDT Moderna Covid-19 Booster (SARS-COV-2) [facility] 09/21/2021 12:00 am EST Moderna COVID-19 Bi-valent Solution 08/15 12:00 am EDT Social History
[2024-12-18 16:24] LABS: Appearance Urine Clear; Color Urine Yellow; Glucose Urine UA Negative (Negative); Leukocyte Esterase Urine Trace (Negative); Nitrite Urine Negative (Negative); PH 5.5 (5.0-9.0); Specific Gravity - Urine 1.015 (1.005-1.025); UMIC TRIGGER UACC YES; Urine Blood Negative (Negative); Urine Ketones Trace mg/dL (Negative); Urine Protein 30 (1+) mg/dL (Neg-Trace)
[2024-12-18 16:41] LABS: Bacteria Urine None Seen (None Seen); RBC Urine 0-2 /HPF (0-2); WBC Urine 0-5 /HPF (0-5)
[2024-12-18 16:43] LABS: Basophils Absolute Auto 0.1 X10*3/uL (0.0-0.2); Basophils Percent Auto 0.5 % (0-2); Eosinophils Absolute Auto 0.7 X10*3/uL (0.0-0.4); Eosinophils Percent Auto 6.6 % (0-4); Hematocrit 37.6 % (37.0-47.0); Hemoglobin 12.6 g/dl (12.0-16.0); Imm Gran Pct Auto 0.9 % (0.0-0.4); Lymphocytes Absolute Auto 0.9 X10*3/uL (1.2-4.9); Lymphocytes Percent Auto 8.3 % (20-40); MANUAL DIFF FLAG SCAN; Mean Corpuscular HGB Conc 33.5 g/dl (31.0-35.0); Mean Corpuscular Hemoglobin 31.3 pg (27.0-33.0); Mean Corpuscular Volume 93.5 fL (80.0-98.0); Monocytes Absolute Auto 0.4 X10*3/uL (0.1-1.2); Monocytes Percent Auto 3.5 % (2-11); Neutrophils Percent Auto 80.2 % (45-73); PLT CLUMP 1; Red Blood Count 4.02 X10*6/uL (4.20-5.50); Red Cell Distribution Width 13.9 % (11.0-16.0); SCAN SMEAR FLAG 1
[2024-12-18 16:46] LABS: White Blood Count 11.2 X10*3/uL (4.8-10.8)
[2024-12-18 16:55] VITALS: BP 100/58; PULSE 88; RESP 18; O2SAT 95
--- NOTE | 2024-12-18 17:00 | PC.NURSE ---
Pt presents to ED via EMS from home, per , pt has dementia and parkinsons. For past 10 days, increase in AMS and not her baseline (more confused and hallucinating today). Pt did have recent UTI and took ABX per , also has been having poor PO intake. Pt alert but very confused, reaching out to things not in the room, does not make sense. Breathing even and unlabored, skin warm and dry.
[2024-12-18] MEDS: 0.9 % Sodium Chloride 1,000 ML 999 ML IV (17:05)
[2024-12-18 17:14] LABS: Mean Platelet Volume 12.8 fL (9.4-12.3); Platelet Count 130 X10*3/uL (160-400); SLIDE REVIEW VERIFIED
[2024-12-18 17:16] LABS: Influenza A PCR NEGATIVE (Negative); Influenza B PCR NEGATIVE (Negative); Resp Syncy Virus RNA Qual PCR NEGATIVE (Negative); SARS COV2 PCR INHOUSE NEGATIVE (Negative)
[2024-12-18 17:25] LABS: Alanine Aminotransferase < 6 U/L (0-31); Albumin Level 3.6 g/dL (3.5-5.0); Alkaline Phosphatase 75 U/L (39-117); Anion Gap 18 (12-20); Aspartate Amino Transferase 20 U/L (5-31); Bilirubin Total 0.5 mg/dL (0.0-1.0); Blood Urea Nitrogen 47 mg/dL (9-16); Calcium 8.8 mg/dL (8.4-10.2); Carbon Dioxide 21 mmol/L (22-29); Chloride 109 mmol/L (96-108); Creatinine Clr Calc Pharmacy 24.2; Estimated Glomerular Filt Rate 41; Glucose Random 90 mg/dL (60-115); Potassium 4.5 mmol/L (3.3-5.1); Sodium 143 mmol/L (135-145); Total Protein 6.2 g/dL (6.5-8.0)
--- NOTE | 2024-12-18 17:51 | PC.NURSE ---
Purewick placed for urine incontinence.
--- NOTE | 2024-12-18 19:14 | ED_ITS ---
HPI - General Adult General Chief complaint: Altered Mental Status Stated complaint: ams Time Seen by Provider: 12/18/24 16:41 Source: patient, RN notes reviewed and old records reviewed Mode of arrival: EMS Limitations: altered mental status History of Present Illness ED Provider: Elena SHRESTHA narrative: 84-year-old female with past medical history significant for Parkinson's dementia, presents for evaluation of altered mental status. 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 It initially started with a day that she slept in bed almost the entire day which was about 5 days ago The patient has been increasingly agitated and confused since then. She has been hallucinating. Per the patient's , the patient has seemed even more confused since yesterday. The patient did have a choking episode 2 days ago She has had decreased appetite since then and developed a dry cough since then Due to the patient's dementia, it is difficult to assess if the patient has any focal weakness Related Data Home Medications ?Medication ?Instructions ?Recorded ?Confirmed cholecalciferol (vitamin D3) 50 50 mcg PO DAILY 01/19/22 03/27/24 mcg (2,000 unit) capsule levothyroxine 75 mcg tablet 75 mcg PO DAILY@0600 01/19/22 03/27/24 mecobalamin (vitamin B12) 1,000 1,000 mcg PO DAILY 04/05/23 03/27/24 mcg chewable tablet acetaminophen 325 mg tablet 650 mg PO TID 07/22/23 03/27/24 ascorbic acid (vitamin C) 500 mg 500 mg PO DAILY 07/22/23 03/27/24 tablet Previous Rx's ?Medication ?Instructions ?Recorded memantine 14 mg capsule 14 mg PO ONCE 30 days #30 ea 03/27/24 sprinkle,extended release 24hr carbidopa ER 61.25 mg-levodopa 245 1 cap PO QID 30 days #120 caps 05/03/24 mg capsule,extended release (Rytary) selegiline HCl 5 mg tablet 5 mg PO BID 30 days #60 tabs 12/17/24 Allergies Allergy/AdvReac Type Severity Reaction Status Date / Time alendronate sodium AdvReac Unknown Unknown Verified 12/18/24 15:04 [From Fosmaryvillex] Review of Systems 2 Constitutional: Constitutional: Denies body ache(s), Denies chills, Denies fever(s), Denies increased appetite, Reports lethargy, Reports malaise, Reports poor appetite and Reports weakness Respiratory: Respiratory: Reports cough Gastrointestinal: Gastrointestinal: Denies diarrhea, Denies nausea and Denies vomiting Integumentary/Breasts: Skin/Breast: Denies rash Neurologic: Reports weakness Psychiatric: Psychiatric: Reports auditory hallucinations and Reports visual hallucinations [facility] Past Medical History Medical History Parkinson's disease Aortic stenosis, mild Hypothyroidism Surgical History Hx of colonoscopy History of hand surgery History of total hip replacement Family History Family History Sister AAA (abdominal aortic aneurysm) Social History Social History Household Members: Spouse Household Members Other:: was a rehab and home for 1 day Housing: [facility] Do you presently have visiting nurse or other home services: Yes Alcohol intake: current Alcohol intake frequency: does not drink Alcohol type: hard liquor 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 Patient Tobacco Use Status: Former Tobacco user Tobacco use type: Cigarette Cigarettes Per Day: 4 Years Smoked: 35 Smoked in Last 30 Days: No Second Hand Smoke Exposure: No Use of substances other than those prescribed or required for medical reasons: No Advance Directives: Yes Advance Directives on File: Yes Advance Directives Date on File: 08/10/23 service: No Current occupational status: retired and disabled 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 Physical Exam ED Vital Signs: Vital Signs - 24 hr 12/18/24 15:03 12/18/24 16:55 Temperature 97.5 F Pulse Rate 90 88 Respiratory Rate 18 18 Blood Pressure 101/47 L 100/58 L Pulse Oximetry 96 95 Oxygen Delivery Method Room Air Room Air BMI result Body Mass Index 22.5 Const General: healthy appearing, comfortable, no acute distress, alert and awake HENMT Head: Yes normocephalic and Yes atraumatic Eyes Eyelids: Yes eyelids normal Conjunctivae: conjunctivae normal Sclerae: sclerae normal Corneas: corneas normal Pupils: Equal, round and reactive pupils present EOM: EOMs intact bilaterally Neck Neck: Yes full ROM Resp Effort & Inspection: normal respiratory effort, able to speak in complete sentences and not labored Skin General skin exam: elasticity normal Neuro Cranial nerves: Yes Equal, round and reactive pupils present and Yes Bilaterally intact EOM present Extrem Other: Moving all extremities well without any obvious deformities NIH Stroke Scale Internal: Initial- Upon Arrival Level of Consciousness: Alert Level of Consciousness Questions: Answers one question correctly Level of Consciousness Commands: Performs one task correctly Best Gaze: Normal Visual: Partial hemianopia Facial Palsy: Normal Motor Arm (Right): No drift Motor Arm (Left): No drift Motor Leg (Right): No drift Motor Leg (Left): No drift Limb Ataxia: Absent Sensory: Normal Best Language: No aphasia Dysarthia: Normal Extinction and Inattention: No abnormality Score: 3 Medications Administered Discontinued Medications Generic Name Dose Route Start Last Admin Trade Name Freq PRN Reason Stop Dose Admin Sodium Chloride 1,000 mls @ 999 mls/hr 12/18/24 17:00 12/18/24 18:26 Ns IV 12/18/24 18:00 Infused .Q1H1M AMY Infusion Medical Decision Making Medical Decision Making [facility] Narrative: 84-year-old female presents for evaluation of altered mental status and agitation that has been worsening over last 4 or 5 days. Her symptoms seem acutely worse since yesterday. She recently completed a course of antibiotics for a urinary tract infection. Per her records this was nitrofurantoin. The patient has had a dry cough for the last couple of days, x-ray shows possible pneumonia which could be aspiration pneumonia given her aspiration event from 2 days ago. However given her altered mental status a CT scan of brain was ordered which shows a right parietal infarct which appears acute. This is likely the cause of the patient's altered mental status over last 4 or 5 days. She was well outside the window for TNK treatment or thrombectomy. I did not order a CT angiography at this time. I did order aspirin 324 mg p.o. we will discuss with the hospitalist for admission of acute CVA Differential Diagnosis Differential Diagnoses: The differential diagnosis associated with the presentation includes CVA Pneumonia UTI Altered mental status Failure to thrive Worsening dementia Admission/Observation Consideration of admission/observation: Escalation of care including admission/observation considered Lab Data [facility] Lab Attestation statement: I reviewed the patient's lab results. Mild leukocytosis to 11.2, which could be reactive to aspiration. No significant anemia. Mild thrombocytopenia of 249569. No significant electrolyte abnormalities warranting intervention. The patient does appear somewhat dry with a BUN of 47 and a creatinine of 1.24. We did treat with IV fluids 12/18/24 16:34 12/18/24 17:01 Labs: Lab Results 12/18/24 12/18/24 12/18/24 Range/Units 16:13 16:34 17:01 WBC 11.2 H (4.8-10.8) X10*3/uL RBC 4.02 L D (4.20-5.50) X10*6/uL Hgb 12.6 (12.0-16.0) g/dl Hct 37.6 (37.0-47.0) % MCV 93.5 (80.0-98.0) fL MCH 31.3 (27.0-33.0) pg MCHC 33.5 (31.0-35.0) g/dl RDW 13.9 (11.0-16.0) % Plt Count 130 L D (160-400) X10*3/uL MPV 12.8 H (9.4-12.3) fL Immature Gran % (Auto) 0.9 H (0.0-0.4) % Neut % (Auto) 80.2 H (45-73) % Lymph % (Auto) 8.3 L (20-40) % [place] % (Auto) 3.5 (2-11) % Eos % (Auto) 6.6 H (0-4) % Baso % (Auto) 0.5 (0-2) % Lymph # (Auto) 0.9 L (1.2-4.9) X10*3/uL [place] # (Auto) 0.4 (0.1-1.2) X10*3/uL Eos # (Auto) 0.7 H (0.0-0.4) X10*3/uL Baso # (Auto) 0.1 (0.0-0.2) X10*3/uL Abs Immat Gran (auto) 0.10 H (0.00-0.03) X10*3/uL Absolute Neuts (auto) 9.0 H (2.0-8.3) x10*3/uL Absolute Nucleated RBC 0.000 (0.0-0.012) X10*3/uL Nucleated RBC % (auto) 0.0 (0.0-0.2) /100WBC Smear Tech's Comments VERIFIED Sodium 143 (135-145) mmol/L Potassium 4.5 (3.3-5.1) mmol/L Chloride 109 H (96-108) mmol/L Carbon Dioxide 21 L (22-29) mmol/L Anion Gap 18 (12-20) BUN 47 H (9-16) mg/dL Creatinine 1.24 (0.5-1.4) mg/dL Estim Creat Clear Calc 24.2 Estimated GFR 41 Random Glucose 90 (60-115) mg/dL Calcium 8.8 (8.4-10.2) mg/dL Total Bilirubin 0.5 (0.0-1.0) mg/dL AST 20 (5-31) U/L ALT < 6 (0-31) U/L Alkaline Phosphatase 75 (39-117) U/L Total Protein 6.2 L (6.5-8.0) g/dL Albumin 3.6 (3.5-5.0) g/dL Urine Color Yellow Urine Appearance Clear Urine pH 5.5 (5.0-9.0) Ur Specific Mineral 1.015 (1.005-1.025) Urine Protein 30 (1+) H (Neg-Trace) mg/dL Urine Glucose (UA) Negative (Negative) mg/dL Urine Ketones Trace (Negative) mg/dL Urine Blood Negative (Negative) Urine Nitrite Negative (Negative) Ur Leukocyte Esterase Trace H (Negative) Urine RBC 0-2 (0-2) /HPF Urine WBC 0-5 (0-5) /HPF Ur Squamous Epith Cells 3-5 (0-2) /HPF Urine Bacteria None Seen (None Seen) Hyaline Casts 3-5 (0-2) /LPF Influenza Type A (PCR) NEGATIVE (Negative) Influenza Type B (PCR) NEGATIVE (Negative) RSV RNA Qual (PCR) NEGATIVE (Negative) SARS-CoV-2 RNA (RT-PCR) NEGATIVE (Negative) Independent Interpretation I performed an independent interpretation of an: Plain X-Ray (Possible lower lobe infiltrate bilaterally) and CT Scan (Agree with Radiology interpretation) Radiology Impression Discussion of test interpretation with radiology: I have reviewed the radiologist's reading. Radiologist Impression: Findings: Normal heart size. Moderate coronary artery calcification. Severe calcification associated with the aortic valve. The visualized thyroid and mediastinum are unremarkable. Small bilateral pleural effusions. Ground-glass opacities and consolidation within the posterior inferior aspects of the bilateral lower lobes. Septal thickening is present. There is a 1 cm lingular nodule on image 36. The visualized upper abdomen is unremarkable. There is a moderate chronic compression fracture at L1. No acute fracture. IMPRESSION: 1. Small bilateral pleural effusions with adjacent atelectasis or infiltrates and mild interstitial edema. 2. There is a 1 cm lingular nodule. Recommend follow-up CT in 3 months. This document has been electronically signed by: Elmira Oliver MD on 12/18/2024 18:51:40 Findings: Advanced involutional change. Moderately severe white matter disease. Small focus of cytotoxic edema within the right posterior parietal lobe. No significant atrophy-like change or white matter disease. There is mucosal thickening within the left sphenoid sinus. The orbits are within normal limits. There is no acute fracture. IMPRESSION: Acute right parietal lobe infarct. This document has been electronically signed by: Elmira Oliver MD on 12/18/2024 18:45:21 Discharge Plan Discharge Clinical Impression: Acute CVA (cerebrovascular accident), Aspiration pneumonia Patient Disposition: Admitted As Inpatient Print Language: Thai
[2024-12-18] MEDS: Aspirin 81 MG TAB.CHEW 324 MG PO (19:30)
[2024-12-18 19:46] VITALS: BP 107/66; PULSE 84; RESP 15; TEMP 36.5; O2SAT 95
--- NOTE | 2024-12-18 19:59 | MHC.EDTECH ---
This pct assumed care of Patient at 1900 ,vitals taken ,Patient awake ,Patient order taker at bedside ,vitals taken ,and belongings list done ,All safety measure in Place .
--- NOTE | 2024-12-18 20:45 | P.HPHOSP_ITS ---
History of Present Illness Date of Service: 12/18/24 Attending physician on admission: Bakari Saul Chief Complaint: Altered Mental Status x 5 days 84-year-old female with past medical history significant for hypothyroidism, parkinson's disease and dementia presents from home via EMS after called reporting worsening mental status. She has been unwell over the last 10 days and is currently on treatment for UTI with an antibiotic. 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 % days ago, she reportedly slept in bed almost the entire day and since then has been increasingly agitated and confused and has also been hallucinating. 2 days ago, she had a chocking spell and then yesterday, her confusion and hallucination seemed to get worse. She has also had decreased appetite and has developed a a dry cough. Initial work up in the emergency room was notable for mild renal insufficiency with her creatinine trending up t 1.24 from a baseline of 0.7. Chest CT showes small Bilateral pleural effusions with adjacent atelectasis or infiltrate and mild interstitial edema. A CT scan of the head done showed an acute right parietal lobe infarct. She was started on aspirin and admission requested for continued care. Review of Systems 2 Review of Systems: Yes Unobtainable due to mental status [facility] Medical History (Updated 12/18/24 @ 23:06 by Bakari Saul MD) Parkinson's disease Aortic stenosis, mild Hypothyroidism Cognitive capacity: Patient with underlying dementia and poor cognition Family History Sister AAA (abdominal aortic aneurysm) Surgical History Hx of colonoscopy History of hand surgery History of total hip replacement Social History Household Members: Spouse Household Members Other:: was a rehab and home for 1 day Housing: Condominium Do you presently have visiting nurse or other home services: Yes Alcohol intake: current Alcohol intake frequency: does not drink Alcohol type: hard liquor 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 Patient Tobacco Use Status: Former Tobacco user Tobacco use type: Cigarette Cigarettes Per Day: 4 Years Smoked: 35 Smoked in Last 30 Days: No Second Hand Smoke Exposure: No Use of substances other than those prescribed or required for medical reasons: No Advance Directives: Yes Advance Directives on File: Yes Advance Directives Date on File: 08/10/23 service: No Current occupational status: retired and disabled 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 Allergies Allergy/AdvReac Type Severity Reaction Status Date / Time alendronate sodium AdvReac Unknown Unknown Verified 12/18/24 15:04 [From Fosamax] Home Medications ?Medication ?Instructions ?Recorded ?Confirmed ?Last Taken ?Type levothyroxine 75 mcg tablet 75 mcg PO DAILY@0600 01/19/22 12/18/24 12/18/24 History mecobalamin (vitamin B12) 1,000 1,000 mcg PO DAILY 04/05/23 12/18/24 12/18/24 History mcg chewable tablet ascorbic acid (vitamin C) 500 mg 500 mg PO DAILY 07/22/23 12/18/24 12/18/24 History tablet cholecalciferol (vitamin D3) 25 25 mcg PO DAILY 12/18/24 12/18/24 12/18/24 History mcg (1,000 unit) tablet (Vitamin D3) quetiapine 25 mg tablet 25 mg PO BEDTIME PRN Sleep 12/18/24 12/18/24 Unknown History Physical Exam 2 Vital Signs and Narrative: Vital Signs: Last Vital Signs Temp 97.7 F 12/18/24 19:46 Pulse 84 12/18/24 19:46 Resp 15 12/18/24 19:46 BP 107/66 12/18/24 19:46 Pulse Ox 95 12/18/24 19:46 O2 Del Method Room Air 12/18/24 19:46 BMI result Body Mass Index 22.5 General: Thin appearing elderly white female in bed. Awake and alert. Confused, restless, agitated and swinging at staff. Very difficult to calm down and unable to follow instructions. Obviously hallucinating reaching out in space for things that are not there. However, she is not in any respiratory distress. Psychiatric: Restless, agitated, confused and hallucinating. Yelling out for help. HEENT: Normocephalic, atraumatic. No pallor or jaundice. Moist oral mucus membranes Neck: Supple. No cervical lymphadenopathy Lungs: Clear to auscultation bilaterally. No rales, rhonchi or wheezes Heart: RRR. Normal s1/s2. No murmurs, rubs or gallops. No peripheral edema. Abdomen: Scaphoid, Soft, non-tender. Normoactive bowel sounds. No visceromegaly. Genitourinary: Deferred Back/Spine/Pelvis: Deferred Skin: Warm, dry, well perfused. Normal turgor. No mottling. Normal capillary refill (< 2 seconds). Neurologic: Awake and alert. Very confused, agitated, swinging at staff, hallucinating. Moves all extremities spontaneously without any noticeable weakness. Comprehensive Neuro exam not undertaken Extremities: Normal muscle bulk, tone and power. No obvious deformities. No peripheral edema. Good peripheral pulses. Results Labs 12/18/24 16:34 12/18/24 17:01 Labs: Laboratory Results - last 24 hr 12/18/24 12/18/24 12/18/24 16:13 16:34 17:01 MCV 93.5 MCH 31.3 MCHC 33.5 RDW 13.9 Plt Count 130 L D MPV 12.8 H Immature Gran % (Auto) 0.9 H Neut % (Auto) 80.2 H Lymph % (Auto) 8.3 L Norman % (Auto) 3.5 Eos % (Auto) 6.6 H Baso % (Auto) 0.5 Lymph # (Auto) 0.9 L Norman # (Auto) 0.4 Eos # (Auto) 0.7 H Baso # (Auto) 0.1 Abs Immat Gran (auto) 0.10 H Absolute Neuts (auto) 9.0 H Absolute Nucleated RBC 0.000 Nucleated RBC % (auto) 0.0 Smear Tech's Comments VERIFIED Anion Gap 18 Estim Creat Clear Calc 24.2 Estimated GFR 41 Random Glucose 90 Calcium 8.8 Total Bilirubin 0.5 AST 20 ALT < 6 Alkaline Phosphatase 75 Total Protein 6.2 L Albumin 3.6 Urine Color Yellow Urine Appearance Clear Urine pH 5.5 Ur Specific Calvin 1.015 Urine Protein 30 (1+) H Urine Glucose (UA) Negative Urine Ketones Trace Urine Blood Negative Urine Nitrite Negative Ur Leukocyte Esterase Trace H Urine RBC 0-2 Urine WBC 0-5 Ur Squamous Epith Cells 3-5 Urine Bacteria None Seen Hyaline Casts 3-5 Influenza Type A (PCR) NEGATIVE Influenza Type B (PCR) NEGATIVE RSV RNA Qual (PCR) NEGATIVE SARS-CoV-2 RNA (RT-PCR) NEGATIVE Imaging Radiologist's Impressions: Head CT scan 1. Acute right parietal lobe infarct. Chest CT scan 1. Small bilateral pleural effusions with adjacent atelectasis or infiltrates and mild interstitial edema. 2. There is a 1 cm lingular nodule. Recommend follow-up CT in 3 months Assessment and Plan (1) Acute CVA (cerebrovascular accident): Start date: 12/18/24 Status: Acute - Patient here with altered mental status and found to be the acute right parietal lobe infarct on the CT scan - admit and continue with the oral aspirin - additional tests to be performed in the morning to include a brain MRI and 2D echo - check a fasting lipid panel and a TSH in the morning - continue aspirin and consider starting on the Plavix - consult and Neurology in the morning - consult PT/OT in the morning - we will need swallowing evaluation in the morning (2) Dementia with behavioral disturbance: Status: Acute - she has known history of Parkinson's disease with likely underlying dementia - now with increasing confusion and hallucinations - she was very agitated on seeing that stuff better come down after receiving 10 mg of IM Zyprexa - resume Seroquel - closely monitored inpatient (3) Acute renal failure: Start date: 12/18/24 Status: Acute - noted with elevated serum creatinine 1.24 and a BUN of 47. - her baseline creatinine around 0.69. - will give some IV fluids and re-assess in AM (4) Hallucinations: Status: Acute - due to underlying dementia that is getting worse - will rehydrate tender continue quetiapine (5) Parkinson's disease: Status: Chronic - resume Sinemet and selegiline Total time managing care of this patient today: 75 minutes. Quality Stroke Does the patient have a stroke diagnosis?: Yes Reason for No Anti-thrombotic by Day Two: N/A - Med Ordered VTE Prior VTE?: No VTE Risk Level:: Medical - moderate - high VTE Device Contraindication: N/A - Device Ordered VTE Drug Contraindication: N/A - Med Ordered
--- NOTE | 2024-12-18 20:47 | PHA.MEDREC ---
Addendum entered by La Amaya RPh 12/18/24 21:04: Med rec was reviewed by Destiny. Original Note: Pharmacy Consult ? Medication Reconciliation Pharmacy has completed the medication reconciliation. Spoke with family/friend at bedside and patients over the phone who was able to confirm the patients medications. The family/friend confirmed the patient finished the Nitrofurantoin 100mg tab last night. The confirmed the patient is still taking a Quetiapine 25mg tab as needed at bedtime for sleep. The and family/friend confirmed the patient last took her medications this afternoon with lunch.
[2024-12-18 21:08] LABS: Glucose, Whole Blood 91 mg/dL (60-115)
[2024-12-18] MEDS: Dextrose 5 % and 0.9 % NaCl 1,000 ML 100 ML IVCONT (21:08)
[2024-12-18] MEDS: Enoxaparin Sodium 40 MG/0.4 ML SYRINGE SUBCUT (21:11)
--- NOTE | 2024-12-18 21:15 | PC.NURSE ---
Addendum entered by Deena Wallace RN 12/19/24 00:53: 0000 pt noted to have bruising to the right arm, pt not pulling away during assessment or complaining of any pain. 2125 zyprexa administered per MD orders. seizure pads applied for safety. ongoing 15 min checks/hr. Original Note: pt initially alert and confused, calm and cooperative. pt now agitated, screaming, combative and upset, having visual hallucinations calling out for Nomi and Jeremy. MD Saul aware. zyprexa ordered.
[2024-12-18] MEDS: OLANZapine 10 MG VIAL IM (21:26)
[2024-12-18 23:21] VITALS: BP 125/66; PULSE 94; RESP 17; TEMP 36.8; O2SAT 100
--- NOTE | 2024-12-18 23:27 | MHC.EDTECH ---
0000 rounding done ,vitals taken ,Patient was incontinent of urine ,Care given and bedding change ,warm blanket given ,All safety measure in Place .
[2024-12-19 04:00] VITALS: BP 123/59; PULSE 93; RESP 20; TEMP 36.3; O2SAT 98; BMI 22.4
--- NOTE | 2024-12-19 07:00 | CA_ITS ---
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 The visually estimated ejection fraction is between 60-65%. Diastolic function is indeterminate on the basis of available data. - Normal right ventricular cavity size and systolic function. - There is mild to moderate aortic valve stenosis. - There is severe mitral annular calcification. - There is mild to moderate mitral valve regurgitation. Findings Left Ventricle Normal left ventricular size, thickness, systolic function, and wall motion. The visually estimated ejection fraction is between 60-65%. Diastolic function is indeterminate on the basis of available data. Right Ventricle Normal right ventricular cavity size and systolic function. Atria The left atrium is normal in size. The right atrium is normal in size. Aortic Valve There is moderate calcification of the aortic valve. There is mild to moderate aortic valve stenosis. The peak aortic velocity is 2.67 m/s with a calculated peak gradient of 29 mmHg. The mean gradient is 15 mmHg. The aortic valve area is 1.39 cm2. There is no aortic valve regurgitation. Mitral Valve There is severe mitral annular calcification. There is mild to moderate mitral valve regurgitation. There is no mitral valve stenosis. Pulmonic Valve The pulmonic valve is likely normal. Tricuspid Valve Normal tricuspid valve structure. There is no tricuspid valve regurgitation. Tricuspid regurgitation envelope is inadequate for calculation of right ventricular systolic pressure. Indeterminate right atrial pressure. Great Vessels All visible segments of the aorta are normal in size. The visualized portions of the pulmonary artery and branches are normal. Venous The inferior vena cava was not well visualized. Pericardium/Pleural There is no evidence of pericardial effusion. Prior Study Comparison Changes noted compared to prior study dated: 01/01/2019. Severe MAC, mild to moderate MR Measurements 2D Linear Measurements IVSd: 0.85 0.6-0.9/0.6-1.0 cm LVIDd: 4.26 3.9-5.3/4.2-5.9 cm LVIDd Index: 2.88 2.4-3.2/2.2-3.1 cm/m2 LVIDs: 2.80 2.0-3.6 cm LVPWd: 0.68 0.7-1.1 cm LA Diam: 3.80 2.7-3.8/3.0-4.0 cm LAIDs Index: 2.57 1.5-2.3 cm/m2 LV Mass: 120.84 67-162/88-224 g LV Mass Index: 81.65 43-95/49-115 g/m2 LVOT Diam: 2.20 3.0+(-)1.3 cm 2D Systolic Function EF 4C: 74.60 >55% EF 2C: 69.00 >55% EF BiP: 73.20 >55% Mitral Valve MV VTI: 0.28 MV Pk Wilder: 1.29 MV Mn Wilder: 1.03 MV Pk Grad: 7.00 MV Mn Grad: 4.00 MV Pk E: 1.05 MV PK A: 1.25 MV Decel Time: 181.00 E/A: 0.80 E'Lateral: 4.90 E'Medial: 5.44 E/E' Med: 19.30 E/E' Lat: 21.40 PHT: 53.00 MVA PHT: 4.15 MVA Continuity: 2.56 Decel [place]: 5.82 MR VTI: 1.61 Aortic Valve AoV Pk Wilder: 2.67 AoV Mn Wilder: 1.78 AoV VTI: 0.52 AoV Pk Grad: 29.00 Aov Mn Grad: 15.00 FERNANDA Cont.VTI: 1.39 LVOT LVOT Pk Wilder: 0.91 LVOT Mn Widler: 0.65 LVOT VTI: 0.19 LVOT Pk Grad: 3.00 LVOT Mn Grad: 2.00 LVOT Diam: 2.20 LVOT Area: 3.80 Diastolic Function MV Pk E: 1.05 MV Pk A: 1.25 E/A: 0.80 E'Medial: 5.44 E/E' Med: 19.30 E' Laterial: 4.90 E/E' Lat: 21.40 Right Ventricle TAPSE (mm): 16.50 TVS' Wilder: 10.90 Tricuspid Valve TR Pk Wilder: 1.78 TR Pk Grad: 13.00 Great Vessels Aorta Sinus of Valsalva: 2.90 2.0-3.5 cm Pulmonary Valve PV Pk Wilder: 0.74 Peak PV Grad: 2.00 Updated in Other Vendor System with Status of Final Mychal Monroe MD electronically signed on 12/19/2024 6:45:11 PM with status of Final
[2024-12-19 07:10] LABS: MANUAL DIFF FLAG NO
[2024-12-19 07:17] LABS: Basophils Percent Auto 0.3 % (0-2); Eosinophils Percent Auto 10.7 % (0-4); Hemoglobin 11.7 g/dl (12.0-16.0); Imm Gran Abs Auto 0.09 X10*3/uL (0.00-0.03); Lymphocytes Absolute Auto 1.3 X10*3/uL (1.2-4.9); Lymphocytes Percent Auto 14.4 % (20-40); Mean Corpuscular HGB Conc 34.4 g/dl (31.0-35.0); Mean Corpuscular Hemoglobin 31.3 pg (27.0-33.0); Mean Corpuscular Volume 90.9 fL (80.0-98.0); Mean Platelet Volume 12.5 fL (9.4-12.3); Monocytes Absolute Auto 0.6 X10*3/uL (0.1-1.2); Monocytes Percent Auto 6.7 % (2-11); Neutrophils Absolute Auto 6.2 x10*3/uL (2.0-8.3); Neutrophils Percent Auto 66.9 % (45-73); Platelet Count 133 X10*3/uL (160-400); Red Blood Count 3.74 X10*6/uL (4.20-5.50); Red Cell Distribution Width 13.7 % (11.0-16.0); White Blood Count 9.3 X10*3/uL (4.8-10.8)
[2024-12-19 07:38] LABS: Anion Gap 13 (12-20); Blood Urea Nitrogen 39 mg/dL (9-16); Calcium 8.6 mg/dL (8.4-10.2); Carbon Dioxide 17 mmol/L (22-29); Chloride 117 mmol/L (96-108); Cholesterol 149 mg/dL (<200); Creatinine Clr Calc Pharmacy 29.8; Estimated Glomerular Filt Rate 52; Glucose Random 73 mg/dL (60-115); HDL Cholesterol 25 mg/dL (>40); LDL Cholesterol Calculated 83 mg/dL (<100); Potassium 3.5 mmol/L (3.3-5.1); Sodium 143 mmol/L (135-145); Triglycerides 205 mg/dL (<150)
[2024-12-19 07:47] LABS: Procalcitonin 0.24 ng/mL; TSH reflex Free T4 3.46 uIU/mL (0.32-4.0)
[2024-12-19 07:48] VITALS: BP 111/63; PULSE 98; RESP 18; TEMP 36.6; O2SAT 95
[2024-12-19 09:02] LABS: B Type Natriuretic Peptide 371 pg/mL (<100)
--- NOTE | 2024-12-19 09:15 | MHC.SLORD ---
Speech Language Pathology Order Status: Pt seen for dysphagia evaluation, pt sleeping with open mouth breathing posture, minimal waking to sternal rub/verbal cues. RN consulted, FINANCE ATTORNEY to return when pt able to participate in swallow evaluation.
--- NOTE | 2024-12-19 10:45 | MHC.CM.PN ---
Patient is here with Dementia and worsening MS; CM spoke with /HCP/Jacobo at [phone] and addressed IMM with him (original will be mailed certified letter to Jacobo and a copy has been placed on the chart). Patient lives in a house with her , uses a walker to assist with mobility, and has a privately hired TEACHERS ASSISTANT about 4 hours/day. PT is presently recommending 24/7 care vs LTC; maybe a re-eval can be done as Patient improves. CM has initiated and will follow for dc planning. Jacobo prefers [facility] or [facility] for a goal of STR; referrals will be made at a later time, when patient improves medically.Patient's is having Knee surgery on 01/08/2025 and will need recovery time prior to resuming a caregiver role. PCP is Dr. Omar Siu. CM will follow.
[2024-12-19 11:01] VITALS: BP 102/51; PULSE 83; RESP 18; TEMP 36.7; O2SAT 96
[2024-12-19] MEDS: 0.9 % Sodium Chloride Flush 3 ML SYRINGE IVFLUSH (13:44)
[2024-12-19] MEDS: Ampicillin Sodium/Sulbactam Na 3 GM in 0.9 % Sodium Chloride 100 ML IV (13:45)
--- NOTE | 2024-12-19 13:47 | MHC.CM.PN ---
CM met with Patient and /HCP/Jacobo at bedside. Patient appears likely to need LTC. Per our discussion, a referral has been made to [facility] for a LTC [facility] will to be initiated. CM will follow.
--- NOTE | 2024-12-19 14:04 | HO.PM.IMPN ---
Subjective Subjective Date of Service: 12/19/24 Interval History: reportedly agitated overnight and pulled out IV; got dose of IM Zyprexa somnolent this AM, minimally verbal Review of Systems Review of Systems: Yes Unobtainable due to mental status Physical Exam Vital Signs: Vital Signs: Last Vital Signs Temp 98.1 F 12/19/24 11:01 Pulse 83 12/19/24 11:01 Resp 18 12/19/24 11:01 BP 102/51 L 12/19/24 11:01 Pulse Ox 96 12/19/24 11:01 O2 Del Method Room Air 12/19/24 11:01 BMI result Body Mass Index 22.4 Gen: somnolent, minimally verbal HEENT: sclera anicteric, moist mucus membranes Neck: supple Lungs: clear to auscultation bilaterally Heart: regular rate and rhythm, no murmurs Abd: soft, non-tender, non-distended Ext: no edema Skin: warm/well-perfused Neuro: somnolent, unable to assess orientation Psych: impaired insight Objective Data Active Medications Acetaminophen (Acetaminophen Supp 650 Mg Supp.Rect) 650 mg [place] Q6H PRN PRN Reason: Pain, Mild 1-3,fever,headache Ascorbic Acid (Ascorbic Acid 500 Mg Tablet) 500 mg PO DAILY [facility] Last Admin: 12/19/24 09:50 Dose: Not Given Documented By: LIBERTY Non-Admin Reason: Physician Approved Aspirin (Aspirin 81 Mg Tab.Chew) 81 mg PO DAILY [facility] Last Admin: 12/19/24 09:50 Dose: Not Given Documented By: LIBERTY Non-Admin Reason: Physician Approved Atorvastatin Calcium (Atorvastatin Calcium 40 Mg Tablet) 40 mg PO DAILY [facility] Last Admin: 12/19/24 09:50 Dose: Not Given Documented By: LIBERTY Non-Admin Reason: Physician Approved Cyanocobalamin (Cyanocobalamin (Vitamin B-12) 1,000 Mcg Tablet) 1,000 mcg PO DAILY [facility] Last Admin: 12/19/24 09:50 Dose: Not Given Documented By: LIBERTY Non-Admin Reason: Physician Approved Enoxaparin Sodium (Enoxaparin Sodium 40 Mg/0.4 Ml Syringe) 40 mg SUBCUT Q24H [facility] Last Admin: 12/18/24 21:11 Dose: 40 mg Documented By: HO.JAMESYV Dextrose/Sodium Chloride (D5ns) 1,000 mls @ 100 mls/hr IVCONT .Q10H [facility] Last Admin: 12/19/24 07:31 Dose: Not Given Documented By: SARAY Non-Admin Reason: No Access Ampicillin Sodium/Sulbactam (Sodium 3 gm/ Sodium Chloride) 100 mls @ 200 mls/hr IV Q12H [facility] Last Admin: 12/19/24 13:45 Dose: 200 mls/hr Documented By: LIBERTY Levothyroxine Sodium (Levothyroxine Sodium 75 Mcg Tablet) 75 mcg PO DAILY@0600 [facility] Last Admin: 12/19/24 05:04 Dose: Not Given Documented By: SARAY Non-Admin Reason: NPO Melatonin (Melatonin 3 Mg Tablet) 6 mg PO BEDTIME PRN PRN Reason: Insomnia Pt Owned Med (Rytary 61.25 Mg - 245 Mg Campsules) 1 each PO QID@0730,1130,1630,2000 [facility] Last Admin: 12/19/24 11:26 Dose: Not Given Documented By: LIBERTY Non-Admin Reason: Physician Approved Pt Owned Med ( Selegiline Hcl 5 Mg Tabs) 1 each PO BID [facility] Last Admin: 12/19/24 11:26 Dose: Not Given Documented By: LIBERTY Non-Admin Reason: Physician Approved Ondansetron HCl (Ondansetron Hcl 4 Mg/2 Ml Vial) 4 mg IVPUSH Q8H PRN PRN Reason: Nausea and Vomiting Quetiapine Fumarate (Quetiapine Fumarate 25 Mg Tablet) 25 mg PO BEDTIME PRN PRN Reason: Sleep Sodium Chloride (0.9 % Sodium Chloride Flush 3 Ml Syringe) 3 ml IVFLUSH QSHIFT [facility] Last Admin: 12/19/24 13:44 Dose: 3 ml Documented By: LIBERTY Vitamin D (Cholecalciferol (Vitamin D3) 25 Mcg Tablet) 25 mcg PO DAILY [facility] Last Admin: 12/19/24 09:50 Dose: Not Given Documented By: LIBERTY Non-Admin Reason: Physician Approved Labs 12/19/24 06:41 12/19/24 06:41 Labs: Laboratory Results - last 24 hr 12/18/24 12/18/24 12/18/24 16:13 16:34 17:01 MCV 93.5 MCH 31.3 MCHC 33.5 RDW 13.9 Plt Count 130 L D MPV 12.8 H Immature Gran % (Auto) 0.9 H Neut % (Auto) 80.2 H Lymph % (Auto) 8.3 L Mclennan % (Auto) 3.5 Eos % (Auto) 6.6 H Baso % (Auto) 0.5 Lymph # (Auto) 0.9 L Mclennan # (Auto) 0.4 Eos # (Auto) 0.7 H Baso # (Auto) 0.1 Abs Immat Gran (auto) 0.10 H Absolute Neuts (auto) 9.0 H Absolute Nucleated RBC 0.000 Nucleated RBC % (auto) 0.0 Smear Tech's Comments VERIFIED Anion Gap 18 Estim Creat Clear Calc 24.2 Estimated GFR 41 POC Glucose Random Glucose 90 Calcium 8.8 Total Bilirubin 0.5 AST 20 ALT < 6 Alkaline Phosphatase 75 B-Natriuretic Peptide Total Protein 6.2 L Albumin 3.6 Triglycerides Cholesterol LDL Cholesterol, Calc HDL Cholesterol Procalcitonin TSH Urine Color Yellow Urine Appearance Clear Urine pH 5.5 Ur Specific [place] 1.015 Urine Protein 30 (1+) H Urine Glucose (UA) Negative Urine Ketones Trace Urine Blood Negative Urine Nitrite Negative Ur Leukocyte Esterase Trace H Urine RBC 0-2 Urine WBC 0-5 Ur Squamous Epith Cells 3-5 Urine Bacteria None Seen Hyaline Casts 3-5 Influenza Type A (PCR) NEGATIVE Influenza Type B (PCR) NEGATIVE RSV RNA Qual (PCR) NEGATIVE SARS-CoV-2 RNA (RT-PCR) NEGATIVE 12/18/24 12/19/24 21:04 06:41 MCV 90.9 MCH 31.3 MCHC 34.4 RDW 13.7 Plt Count 133 L MPV 12.5 H Immature Gran % (Auto) 1.0 H Neut % (Auto) 66.9 Lymph % (Auto) 14.4 L Mclennan % (Auto) 6.7 Eos % (Auto) 10.7 H Baso % (Auto) 0.3 Lymph # (Auto) 1.3 Mclennan # (Auto) 0.6 Eos # (Auto) 1.0 H Baso # (Auto) 0.0 Abs Immat Gran (auto) 0.09 H Absolute Neuts (auto) 6.2 Absolute Nucleated RBC 0.000 Nucleated RBC % (auto) 0.0 Smear Tech's Comments Anion Gap 13 Estim Creat Clear Calc 29.8 Estimated GFR 52 POC Glucose 91 Random Glucose 73 Calcium 8.6 Total Bilirubin AST ALT Alkaline Phosphatase B-Natriuretic Peptide 371 H Total Protein Albumin Triglycerides 205 H Cholesterol 149 LDL Cholesterol, Calc 83 HDL Cholesterol 25 L Procalcitonin 0.24 TSH 3.46 Urine Color Urine Appearance Urine pH Ur Specific [place] Urine Protein Urine Glucose (UA) Urine Ketones Urine Blood Urine Nitrite Ur Leukocyte Esterase Urine RBC Urine WBC Ur Squamous Epith Cells Urine Bacteria Hyaline Casts Influenza Type A (PCR) Influenza Type B (PCR) RSV RNA Qual (PCR) SARS-CoV-2 RNA (RT-PCR) Impressions Carotid Doppler Study 12/19/24 07:32 IMPRESSION: 1. RIGHT: Irregular mixed plaque. 0-49% stenosis by ultrasound criteria. 2. LEFT: Irregular mixed plaque. 0-49% stenosis by ultrasound criteria. Electronically signed by: Dorian Brunner MD 12/19/2024 08:27 [place] [facility] [place] and Plan (1) Acute CVA (cerebrovascular accident): Status: Acute Plan d2 for 84yo F with Parkinsons disease, hypothyroidism and dementia presenting with worsening mental status over last 10d despite treatment of UTI. Increasingly agitated and confused, hallucinating. Choking episode 2 days prior to admission and now coughign. 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 Quality Stroke Does the patient have a stroke diagnosis?: Yes Reason for No Anti-thrombotic by Day Two: N/A - Med Ordered VTE Prior VTE?: No VTE Risk Level:: Medical - moderate - high VTE Device Contraindication: N/A - Device Ordered VTE Drug Contraindication: N/A - Med Ordered
--- NOTE | 2024-12-19 14:52 | PM.NEUROCN ---
History of Present Illness Data of Consult Service Date: 12/19/24 Primary Care Provider: Omar Siu MD [facility] Reason for consult: Encephalopathy 84 years old woman who probably has significant multifactorial dementia was brought to hospital with change in mental status. She was at home cared by her in a nurse. At this time she was not talking and not responsive. She was also being treated for UTI. There was no evidence of any convulsion type of activity. Review of Systems Review of Systems: Could not be done with [facility] Past Medical History Medical History (Updated 12/19/24 @ 14:55 by Laila Lees MD) Parkinson's disease Aortic stenosis, mild Hypothyroidism Family History Family History Sister AAA (abdominal aortic aneurysm) Surgical History Surgical History Hx of colonoscopy History of hand surgery History of total hip replacement Social History Social History Household Members: Spouse and Caregiver Household Members Other:: was a rehab and home for 1 day [facility] Do you presently have visiting nurse or other home services: Yes Alcohol intake: current Alcohol intake frequency: does not drink Alcohol type: hard liquor 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 Patient Tobacco Use Status: Former Tobacco user Tobacco use type: Cigarette Cigarettes Per Day: 4 Years Smoked: 35 Second Hand Smoke Exposure: No Advance Directives Date on File: 08/10/23 service: No Current occupational status: retired and disabled 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 Allergies Allergy/AdvReac Type Severity Reaction Status Date / Time alendronate sodium AdvReac Unknown Unknown Verified 12/18/24 15:04 [From Fosamax] Active Medications: Current Medications Acetaminophen (Acetaminophen Supp 650 Mg Supp.Rect) 650 mg [place] Q6H PRN PRN Reason: Pain, Mild 1-3,fever,headache Ascorbic Acid (Ascorbic Acid 500 Mg Tablet) 500 mg PO DAILY [facility] Last Admin: 12/19/24 09:50 Dose: Not Given Aspirin (Aspirin 81 Mg Tab.Chew) 81 mg PO DAILY [facility] Last Admin: 12/19/24 09:50 Dose: Not Given Atorvastatin Calcium (Atorvastatin Calcium 40 Mg Tablet) 40 mg PO DAILY [facility] Last Admin: 12/19/24 09:50 Dose: Not Given Cyanocobalamin (Cyanocobalamin (Vitamin B-12) 1,000 Mcg Tablet) 1,000 mcg PO DAILY [facility] Last Admin: 12/19/24 09:50 Dose: Not Given Enoxaparin Sodium (Enoxaparin Sodium 40 Mg/0.4 Ml Syringe) 40 mg SUBCUT Q24H [facility] Last Admin: 12/18/24 21:11 Dose: 40 mg Dextrose/Sodium Chloride (D5ns) 1,000 mls @ 100 mls/hr IVCONT .Q10H [facility] Last Infusion: 12/19/24 07:31 Dose: Infused Ampicillin Sodium/Sulbactam (Sodium 3 gm/ Sodium Chloride) 100 mls @ 200 mls/hr IV Q12H [facility] Last Admin: 12/19/24 13:45 Dose: 200 mls/hr Levothyroxine Sodium (Levothyroxine Sodium 75 Mcg Tablet) 75 mcg PO DAILY@0600 [facility] Last Admin: 12/19/24 05:04 Dose: Not Given Melatonin (Melatonin 3 Mg Tablet) 6 mg PO BEDTIME PRN PRN Reason: Insomnia Pt Owned Med (Rytary 61.25 Mg - 245 Mg Campsules) 1 each PO QID@0730,1130,1630,2000 [facility] Last Admin: 12/19/24 11:26 Dose: Not Given Pt Owned Med ( Selegiline Hcl 5 Mg Tabs) 1 each PO BID [facility] Last Admin: 12/19/24 11:26 Dose: Not Given Ondansetron HCl (Ondansetron Hcl 4 Mg/2 Ml Vial) 4 mg IVPUSH Q8H PRN PRN Reason: Nausea and Vomiting Quetiapine Fumarate (Quetiapine Fumarate 25 Mg Tablet) 25 mg PO BEDTIME PRN PRN Reason: Sleep Sodium Chloride (0.9 % Sodium Chloride Flush 3 Ml Syringe) 3 ml IVFLUSH QSHIFT [facility] Last Admin: 12/19/24 13:44 Dose: 3 ml Vitamin D (Cholecalciferol (Vitamin D3) 25 Mcg Tablet) 25 mcg PO DAILY [facility] Last Admin: 12/19/24 09:50 Dose: Not Given Home Medications ?Medication ?Instructions ?Recorded ?Confirmed ?Last Taken ?Type levothyroxine 75 mcg tablet 75 mcg PO DAILY@0600 01/19/22 12/18/24 12/18/24 History mecobalamin (vitamin B12) 1,000 1,000 mcg PO DAILY 04/05/23 12/18/24 12/18/24 History mcg chewable tablet ascorbic acid (vitamin C) 500 mg 500 mg PO DAILY 07/22/23 12/18/24 12/18/24 History tablet cholecalciferol (vitamin D3) 25 25 mcg PO DAILY 12/18/24 12/18/24 12/18/24 History mcg (1,000 unit) tablet (Vitamin D3) quetiapine 25 mg tablet 25 mg PO BEDTIME PRN Sleep 12/18/24 12/18/24 Unknown History Physical Exam Vital Signs: Vital Signs: Last Vital Signs Temp 98.1 F 12/19/24 11:01 Pulse 83 12/19/24 11:01 Resp 18 12/19/24 11:01 BP 102/51 L 12/19/24 11:01 Pulse Ox 96 12/19/24 11:01 O2 Del Method Room Air 12/19/24 11:01 BMI result Body Mass Index 22.4 Neuro: Other: Very drowsy not opening eyes keeping or neck to the left side resistant to examination. Arms or legs were flexed. Deep tendon reflexes were difficult to elicit. Exam was limited. Results Labs 12/19/24 06:41 12/19/24 06:41 Labs: Short CBC 12/18/24 12/19/24 Range/Units 16:34 06:41 WBC 11.2 H 9.3 (4.8-10.8) X10*3/uL Hgb 12.6 11.7 L (12.0-16.0) g/dl Hct 37.6 34.0 L (37.0-47.0) % Plt Count 130 L D 133 L (160-400) X10*3/uL BMP 12/18/24 12/19/24 17:01 06:41 Sodium 143 143 Potassium 4.5 3.5 D Chloride 109 H 117 H Carbon Dioxide 21 L 17 L BUN 47 H 39 H Creatinine 1.24 1.01 Calcium 8.8 8.6 Liver Function 12/18/24 Range/Units 17:01 Total Bilirubin 0.5 (0.0-1.0) mg/dL AST 20 (5-31) U/L ALT < 6 (0-31) U/L Alkaline Phosphatase 75 (39-117) U/L Albumin 3.6 (3.5-5.0) g/dL Urine 12/18/24 Range/Units 16:13 Urine Color Yellow Urine Appearance Clear Urine pH 5.5 (5.0-9.0) Ur Specific [place] 1.015 (1.005-1.025) Urine Protein 30 (1+) H (Neg-Trace) mg/dL Urine Glucose (UA) Negative (Negative) mg/dL Head CT revealed moderate to severe diffuse cerebral atrophy and moderate to severe diffuse microvascular ischemic changes. Assessment and Plan (1) Multifactorial dementia: Status: Acute (2) Encephalopathy: Qualifiers: Encephalopathy type: unspecified encephalopathy Qualified Code(s): G93.40 - Encephalopathy, unspecified Status: Acute 84 years old woman with probably moderate to severe multifactorial, degenerative +vascular, dementia. At this time she was encephalopathic and etiology could be due to infection. She might have another ischemic lesion on top of significant vascular disease she has. I recommend exploration and treatment of only conditions that could make meaningful changes in her life. In this regard infections should be treated. An EEG can help to rule out nonconvulsive epilepsy as she was at risk for that kind of condition. Procedures Date of Service Date of Service: 12/19/24
[2024-12-19 16:00] VITALS: BP 105/57; PULSE 71; RESP 16; TEMP 36.3; O2SAT 97
[2024-12-19] MEDS: Dextrose 5 % and 0.9 % NaCl 1,000 ML 100 ML IVCONT (17:41)
[2024-12-19 20:00] VITALS: BP 115/57; PULSE 74; RESP 16; TEMP 36; O2SAT 95
[2024-12-19] MEDS: Enoxaparin Sodium 40 MG/0.4 ML SYRINGE SUBCUT (21:45)
[2024-12-20] VITALS (8 sets, daily range): BP systolic 109–155; BP diastolic 52–78; PULSE 74–78; RESP 16–20; TEMP 36–36.8; O2SAT 94–99
--- NOTE | 2024-12-20 | EEG_ITS ---
This is a 16-channel EEG with an EKG lead. The patient is reported awake during the tracing. Background EEG rhythm is 7 to 8 hertz with occasional triphasic waves of medium amplitude with no obvious asymmetry or paroxysmal tendency. Photic stimulation and hyperventilation were not performed. Cardiac lead does not reveal any significant abnormality. IMPRESSION: Generalized slowing with no evidence of seizure disorder. MD ASHU Oh/ZOLTAN / [id number]
[2024-12-20] MEDS: Ampicillin Sodium/Sulbactam Na 3 GM in 0.9 % Sodium Chloride 100 ML IV ×5 (00:32→20:08)
[2024-12-20] MEDS: Dextrose 5 % and 0.9 % NaCl 1,000 ML 100 ML IVCONT (05:13)
[2024-12-20 07:27] LABS: Blood Urea Nitrogen 29 mg/dL (9-16); Calcium 8.6 mg/dL (8.4-10.2); Creatinine Clr Calc Pharmacy 36.6; Estimated Glomerular Filt Rate > 60; Glucose Random 76 mg/dL (60-115)
[2024-12-20 07:37] LABS: Anion Gap 15 (12-20); Carbon Dioxide 15 mmol/L (22-29); Chloride 126 mmol/L (96-108); Potassium 4.5 mmol/L (3.3-5.1); Sodium 151 mmol/L (135-145)
[2024-12-20 07:47] LABS: Procalcitonin 0.11 ng/mL
[2024-12-20] MEDS: 0.9 % Sodium Chloride Flush 3 ML SYRINGE IVFLUSH ×2 (09:55→17:10)
[2024-12-20 11:35] LABS: Prothrombin Time 11.7 SEC (10.9-12.4)
[2024-12-20] MEDS: Aspirin 81 MG TAB.CHEW PO (11:37)
[2024-12-20] MEDS: Atorvastatin Calcium 40 MG TABLET PO (11:37)
[2024-12-20] MEDS: Cyanocobalamin (Vitamin B-12) 1,000 MCG TABLET 1000 MCG PO (11:37)
[2024-12-20] MEDS: Ascorbic Acid 500 MG TABLET PO (11:37)
[2024-12-20] MEDS: Cholecalciferol (Vitamin D3) 25 MCG TABLET PO (11:37)
[2024-12-20] MEDS: [UNRECOGNIZED DRUG - OTHER] 1 EACH PO ×2 (11:38→20:16)
[2024-12-20] MEDS: Dextrose 5 % 1,000 ML 50 ML IVCONT ×2 (11:59→20:08)
--- NOTE | 2024-12-20 12:00 | MHC.CM.PN ---
PT is recommending Acute Rehab; CM has /HCP's permission to initiate a STR search ([facility], [facility], and [facility] are among his top choices (NOT [facility]). CM will follow.
[2024-12-20] MEDS: LEVODOPA PO ×3 (12:06→20:16)
[2024-12-20] MEDS: CARBIDOPA PO ×3 (12:06→20:16)
--- NOTE | 2024-12-20 13:08 | MHC.CM.PN ---
[facility] will have a private room opening tomorrow; Patient still appears unable to voice her preferences at this time. CM left a detailed message for /HCP/Jacobo, asking if he accepts this bed offer. CM will follow.
--- NOTE | 2024-12-20 13:41 | MHC.CM.PN ---
Patient/ (HCP) has accepted the private room at [facility] that will become available tomorrow. CM will follow.
--- NOTE | 2024-12-20 14:05 | HO.PM.IMPN ---
Subjective Subjective Date of Service: 12/20/24 Interval History: much more awake and able to participate in PT/OT/POSSUM TRAPPER today some visual loss L eye Review of Systems Review of Systems: Yes all other systems are reviewed and are negative Physical Exam Vital Signs: Vital Signs: Last Vital Signs Temp 98.2 F 12/20/24 11:37 Pulse 75 12/20/24 11:37 Resp 18 12/20/24 11:37 BP 148/67 H 12/20/24 11:37 Pulse Ox 98 12/20/24 11:37 O2 Del Method Room Air 12/20/24 11:37 BMI result Body Mass Index 22.4 Gen: in no acute distress HEENT: sclera anicteric, moist mucus membranes Neck: supple Lungs: clear to auscultation bilaterally Heart: regular rate and rhythm, no murmurs Abd: soft, non-tender, non-distended Ext: no edema Skin: warm/well-perfused Neuro: alert and oriented to self/place, no focal weakness Psych: appropriate affect Objective Data Active Medications Acetaminophen (Acetaminophen Supp 650 Mg Supp.Rect) 650 mg NV Q6H PRN PRN Reason: Pain, Mild 1-3,fever,headache Ascorbic Acid (Ascorbic Acid 500 Mg Tablet) 500 mg PO DAILY [facility] Last Admin: 12/20/24 11:37 Dose: 500 mg Documented By: LIBERTY Aspirin (Aspirin 81 Mg Tab.Chew) 81 mg PO DAILY [facility] Last Admin: 12/20/24 11:37 Dose: 81 mg Documented By: LIBERTY Atorvastatin Calcium (Atorvastatin Calcium 40 Mg Tablet) 40 mg PO DAILY [facility] Last Admin: 12/20/24 11:37 Dose: 40 mg Documented By: LIBERTY Cyanocobalamin (Cyanocobalamin (Vitamin B-12) 1,000 Mcg Tablet) 1,000 mcg PO DAILY [facility] Last Admin: 12/20/24 11:37 Dose: 1,000 mcg Documented By: LIBERTY Enoxaparin Sodium (Enoxaparin Sodium 40 Mg/0.4 Ml Syringe) 40 mg SUBCUT Q24H [facility] Last Admin: 12/19/24 21:45 Dose: 40 mg Documented By: RON Dextrose (D5w) 1,000 mls @ 50 mls/hr IVCONT .Q20H [facility] Last Admin: 12/20/24 11:59 Dose: 50 mls/hr Documented By: LIBERTY Ampicillin Sodium/Sulbactam (Sodium 3 gm/ Sodium Chloride) 100 mls @ 200 mls/hr IV Q6H [facility] Last Infusion: 12/20/24 11:40 Dose: Infused Documented By: LIBERTY Levothyroxine Sodium (Levothyroxine Sodium 75 Mcg Tablet) 75 mcg PO DAILY@0600 [facility] Last Admin: 12/20/24 05:58 Dose: Not Given Documented By: CARRILLO Non-Admin Reason: NPO Melatonin (Melatonin 3 Mg Tablet) 6 mg PO BEDTIME PRN PRN Reason: Insomnia Pt Owned Med (Rytary 61.25 Mg - 245 Mg Campsules) 1 each PO QID@0730,1130,1630,2000 [facility] Last Admin: 12/20/24 12:06 Dose: 1 each Documented By: LIBERTY Pt Owned Med ( Selegiline Hcl 5 Mg Tabs) 1 each PO BID [facility] Last Admin: 12/20/24 11:38 Dose: 1 each Documented By: LIBERTY Ondansetron HCl (Ondansetron Hcl 4 Mg/2 Ml Vial) 4 mg IVPUSH Q8H PRN PRN Reason: Nausea and Vomiting Quetiapine Fumarate (Quetiapine Fumarate 25 Mg Tablet) 25 mg PO BEDTIME PRN PRN Reason: Sleep Sodium Chloride (0.9 % Sodium Chloride Flush 3 Ml Syringe) 3 ml IVFLUSH QSHIFT [facility] Last Admin: 12/20/24 09:55 Dose: 3 ml Documented By: LIBERTY Vitamin D (Cholecalciferol (Vitamin D3) 25 Mcg Tablet) 25 mcg PO DAILY [facility] Last Admin: 12/20/24 11:37 Dose: 25 mcg Documented By: LIBERTY Labs 12/19/24 06:41 12/20/24 06:27 Labs: Laboratory Results - last 24 hr 12/20/24 12/20/24 06:27 11:22 PT 11.7 INR 1.0 Anion Gap 15 Estim Creat Clear Calc 36.6 Estimated GFR > 60 Random Glucose 76 Calcium 8.6 Procalcitonin 0.11 Assessment and Plan (1) Acute CVA (cerebrovascular accident): Status: Acute Plan d3 for 84yo F with Parkinsons disease, hypothyroidism and dementia presenting with worsening mental status over last 10d despite treatment of UTI. Increasingly agitated and confused, hallucinating. Choking episode 2 days prior to admission and now coughign. Found to have mild BENSON, pneumonia with pleural effusions, and acute stroke acute CVA - MRI 12/19 showed: Right occipital lobe acute ischemic infarct. Additionally multiple small foci of restricted diffusion within the right frontal lobe concerning for acute embolic infarcts. Moderate generalized cerebral volume loss and severe chronic microvascular ischemic changes the periventricular and subcortical white matter. - discussed with Neuro; will start DAPT with ASA + clopidogrel [unless has AF on telemetry, in which case we would use full anticoagulation] - TTE 12/19: - Normal left ventricular size, thickness, systolic function, and wall motion. The visually estimated ejection fraction is between 60-65%. Diastolic function is indeterminate on the basis of available data. - Normal right ventricular cavity size and systolic function. - There is mild to moderate aortic valve stenosis. - There is severe mitral annular calcification. - There is mild to moderate mitral valve regurgitation. 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 Quality Stroke Does the patient have a stroke diagnosis?: Yes Reason for No Anti-thrombotic by Day Two: N/A - Med Ordered VTE Prior VTE?: No VTE Risk Level:: Medical - moderate - high VTE Device Contraindication: N/A - Device Ordered VTE Drug Contraindication: N/A - Med Ordered
--- NOTE | 2024-12-20 14:31 | MHC.SL.SWA ---
Speech Pathologist Impression: Risk of Aspiration Due to: Neurological Condition History of Pneumonia Dysphasia Diet Status: Liquid Consistency and Strategies for Safe Swallow: Liquid Intake Recommendation: Thin Liquid Intake Strategies: Small Sips Solid Food Consistency: Dietary Recommendations: Chopped/Advanced (NDD3) Additional Modifications to Solid Foods: Alternate liquids/solids. Recommend no straws, however patient can use straw sip cup provided from home. Oral Medication Intake: Whole with Liquid Please contact the pharmacy regarding appropriate crushable or liquid drug formulations that are available whenever modified delivery is recommended. Compensatory Strategies and Precautions to be Taken for Safe Swallow: Sitting Upright (90 deg) No Straw Liquids from Cup Small Bites and Sips Supervision While Eating and Drinking for Safe Swallow: Total Supervision (1:1) Foods to Avoid: Tough difficult to chew solids Swallowing Recommended Treatments: Compens. Strategy Educat. Recommendation for Speech: Inpatient Speech Therapy Comment: Patient is much improved this a.m., awake, alert, conversant, able to do some independent feeding. On swallow evaluation, patient presents mostly WFL, is edentulous and routinely wears dentures which were available for today's assessment. Recommend START diet of chopped/advanced (for ease of mastication), Regular liquids (no straw), pills whole with liquid if small, in puree if large. Sippy cup provided from home is ok for liquids, encourage patient to take small sips. Patient would benefit from supervision at meals at least initially, secondary to mild confusion, generalized weakness. , RD, Stroke RN notified of recommendation by secure text, RN in person. SUPERVISORY CBP OFFICER to f/u 1-2X Frequency/Duration: Date Range for Service Req: Timeline to reassess: Process Validation Engineer Clinican/Clinical Fellow: No Supervisory Statement: I have reviewed and agree with the student/clinical fellow's documentation: N/A Speech Language Pathologist:
[2024-12-20] MEDS: Clopidogrel Bisulfate 75 MG TABLET PO (14:40)
[2024-12-20 15:18] LABS: Sodium 144 mmol/L (135-145)
--- NOTE | 2024-12-20 15:30 | MHC.STROKE ---
Met with patient and in room 453. Pt awake, alert and engaged in conversation. Answering questions appropriately. reports that patient is much more awake and alert than yesterday. Pt denies any complaints. Evaluated by neurology and recommendations in note Stroke Education provided. Pamphlet given and educational pictures provided as well. Risk factors discussed including medical hx, medications, diet, smoking, activity. We discussed her smoking and patient has been a smoker up until a couple of weeks ago. Pt interested in nicotene replacement therapy for discharge. Will continue to assist as needed.
[2024-12-20] MEDS: Enoxaparin Sodium 40 MG/0.4 ML SYRINGE SUBCUT (21:24)
[2024-12-21] MEDS: 0.9 % Sodium Chloride Flush 3 ML SYRINGE IVFLUSH ×2 (00:33→08:49)
[2024-12-21] MEDS: Ampicillin Sodium/Sulbactam Na 3 GM in 0.9 % Sodium Chloride 100 ML IV ×2 (02:49→08:45)
--- NOTE | 2024-12-21 03:09 | PC.NURSE ---
Assumed care of patient at 23:30. Please see shift assessments, tasks, and MAR for full details. Bed alarm on and safety measures in place. Call tripathi within reach and educated on use. Handoff report given to oncoming RN assuming care at ~02:00.
[2024-12-21 03:13] VITALS: BP 127/62; PULSE 72; RESP 20; TEMP 37.1; O2SAT 94
[2024-12-21] MEDS: Levothyroxine Sodium 75 MCG TABLET PO (05:40)
--- NOTE | 2024-12-21 06:38 | PC.NURSE ---
Assumed care at 0300, asleep on bed, aroused when called, pleasant and oriented x2, denies any SoB, vitals WNL.
[2024-12-21 06:58] LABS: Hematocrit 35.9 % (37.0-47.0); Mean Corpuscular HGB Conc 33.4 g/dl (31.0-35.0); Mean Corpuscular Hemoglobin 30.9 pg (27.0-33.0); Mean Corpuscular Volume 92.5 fL (80.0-98.0); Mean Platelet Volume 11.8 fL (9.4-12.3); Platelet Count 144 X10*3/uL (160-400); Red Blood Count 3.88 X10*6/uL (4.20-5.50); Red Cell Distribution Width 14.1 % (11.0-16.0)
[2024-12-21 07:23] LABS: Blood Urea Nitrogen 16 mg/dL (9-16); Calcium 8.4 mg/dL (8.4-10.2); Creatinine Clr Calc Pharmacy 43.5; Estimated Glomerular Filt Rate > 60; Glucose Random 83 mg/dL (60-115)
[2024-12-21 07:30] LABS: Anion Gap 12 (12-20); Carbon Dioxide 17 mmol/L (22-29); Chloride 113 mmol/L (96-108); Potassium 3.4 mmol/L (3.3-5.1); Sodium 139 mmol/L (135-145)
[2024-12-21 08:00] VITALS: BP 131/62; PULSE 76; RESP 18; TEMP 36.3; O2SAT 98
[2024-12-21] MEDS: CARBIDOPA PO ×2 (08:00→12:09)
[2024-12-21] MEDS: LEVODOPA PO ×2 (08:00→12:09)
[2024-12-21] MEDS: Aspirin 81 MG TAB.CHEW PO (08:45)
[2024-12-21] MEDS: Ascorbic Acid 500 MG TABLET PO (08:45)
[2024-12-21] MEDS: Cyanocobalamin (Vitamin B-12) 1,000 MCG TABLET 1000 MCG PO (08:45)
[2024-12-21] MEDS: Cholecalciferol (Vitamin D3) 25 MCG TABLET PO (08:45)
[2024-12-21] MEDS: Clopidogrel Bisulfate 75 MG TABLET PO (08:45)
[2024-12-21] MEDS: Atorvastatin Calcium 40 MG TABLET PO (08:45)
[2024-12-21] MEDS: [UNRECOGNIZED DRUG - OTHER] 1 EACH PO (09:04)
[2024-12-21 09:52] VITALS: BP 131/62; PULSE 76; O2SAT 98
--- NOTE | 2024-12-21 10:35 | MHC.CM.PN ---
Per MD in [facility]OUNDS, Patient is medically cleared for dc to [facility] today. Per Patient and /HCP's preference, they have accepted a bed offer at [facility] and Patient will dc there today at 1PM, via [facility]. Last IMM was done on 12/19 2024.
[2024-12-21 11:07] LABS: Sodium 139 mmol/L (135-145)
[2024-12-21 11:31] VITALS: BP 141/70; PULSE 76; RESP 18; TEMP 36.6; O2SAT 96
--- NOTE | 2024-12-21 12:29 | MHC.SL.SWA ---
Speech Pathologist Impression: Risk of Aspiration, Oropharyngeal Dysphagia Risk of Aspiration Due to: Neurological Condition History of Pneumonia Dysphasia Diet Status: No Change Liquid Consistency and Strategies for Safe Swallow: Liquid Intake Recommendation: Thin Liquid Intake Strategies: Small Sips Solid Food Consistency: Dietary Recommendations: Chopped/Advanced (NDD3) Additional Modifications to Solid Foods: Alternate liquids/solids. Recommend no straws, however patient can use straw sip cup provided from home. Oral Medication Intake: Whole with Liquid Please contact the pharmacy regarding appropriate crushable or liquid drug formulations that are available whenever modified delivery is recommended. Compensatory Strategies and Precautions to be Taken for Safe Swallow: Sitting Upright (90 deg) No Straw Small Bites and Sips Rate of Ingestion Change Avoid Specific Foods Supervision While Eating and Drinking for Safe Swallow: Total Supervision (1:1) Foods to Avoid: Tough difficult to chew solids; mixed consistencies Swallowing Recommended Treatments: Compens. Strategy Educat. Recommendation for Speech: Inpatient Speech Therapy Comment: On swallow evaluation, patient presents mostly WFL, is edentulous and routinely wears dentures which were available for today's assessment. Sippy cup provided from home is ok for liquids, encourage patient to take small sips. Patient would benefit from supervision at meals at least initially, secondary to mild confusion, generalized weakness. Frequency/Duration: Date Range for Service Req: Timeline to reassess: Guest Services Representative Clinican/Clinical Fellow: No Supervisory Statement: I have reviewed and agree with the student/clinical fellow's documentation: N/A Speech Language Pathologist: Karin Pratt M.A., CCC-[employer]
--- NOTE | 2024-12-21 12:34 | PM.DS ---
DS: Providers Provider Date of Service: 12/21/24 Date of admission: 12/18/24 20:33 Date of discharge: 12/21/24 Primary care physician: Omar Siu MD Consults: 12/18/24 20:36 Consult to Neurology Routine Consulting Provider: [facility] Reason for consultation: CVA Has provider been notified: No 12/19/24 14:10 Consult for Sitter Routine Reason for consultation: pulled IV DS: Diagnosis Discharge Diagnosis (1) Acute CVA (cerebrovascular accident): Status: Acute (2) Embolic stroke: Status: Acute (3) Acute renal failure: Status: Acute (4) Aspiration pneumonia: Status: Acute DS: Summary Hospital Course Hospital Course: From the history and physical by the admitting hospitalist, Bakari Saul, 12/18/24: 84-year-old female with past medical history significant for hypothyroidism, parkinson's disease and dementia presents from home via EMS after called reporting worsening mental status. She has been unwell over the last 10 days and is currently on treatment for UTI with an antibiotic. Both her , and cordage sales representative reported that she been altered for the last 4 or 5 days. % days ago, she reportedly slept in bed almost the entire day and since then has been increasingly agitated and confused and has also been hallucinating. 2 days ago, she had a chocking spell and then yesterday, her confusion and hallucination seemed to get worse. She has also had decreased appetite and has developed a a dry cough. Initial work up in the emergency room was notable for mild renal insufficiency with her creatinine trending up t 1.24 from a baseline of 0.7. Chest CT showes small Bilateral pleural effusions with adjacent atelectasis or infiltrate and mild interstitial edema. A CT scan of the head done showed an acute right parietal lobe infarct. She was started on aspirin and admission requested for continued care. 84yo F with Parkinsons disease, hypothyroidism and dementia presenting with worsening mental status over last 10d despite treatment of UTI. Increasingly agitated and confused, hallucinating. Choking episode 2 days prior to admission and now coughign. Found to have mild BENSON, pneumonia with pleural effusions, and acute stroke acute CVA - MRI 12/19 showed R occipital lobe ischemic stroke with mulptile foci in the R frontal lobe concerning for acute embolic infarcts. Neurology consulted. No atrial fibrillation or flutter on telemetry. Dual antiplatelet therapy with ASA + clopidogrel recommended and started. TTE 12/19: - Normal left ventricular size, thickness, systolic function, and wall motion. The visually estimated ejection fraction is between 60-65%. Diastolic function is indeterminate on the basis of available data. - Normal right ventricular cavity size and systolic function. - There is mild to moderate aortic valve stenosis. - There is severe mitral annular calcification. - There is mild to moderate mitral valve regurgitation. - carotid Doppler without significant stenosis - PT/OT/MASS COMMUNICATIONS PROFESSOR consulted. As mental status improved, diet was advanced to NDD3 solids and thin liquids with good tolerance. BENSON, mild - Resolved with IV hydration. hyperNa - Likely due to initial NPO status. Resolved with IV free water repletion. acute metabolic encephalopathy - Largely resolved; was likely due to CVA. aspiration PNA - Treated with 2 days of ampicilin-sulbactam and discharged on 3 days of amoxicillin-clavulanate. She was discharged to [facility] for short-term rehabilitation. Time Attestation Discharge Coordination Time (in mins): 45 Quality: Safe Use of Opioids Does Pt have an Active Cancer Diagnosis on the Problem List?: No Quality: Stroke Does the patient have a stroke diagnosis?: No Physical Exam Vital Signs: Vital Signs: Last Vital Signs Temp 97.8 F 12/21/24 11:31 Pulse 76 12/21/24 11:31 Resp 18 12/21/24 11:31 BP 141/70 H 12/21/24 11:31 Pulse Ox 96 12/21/24 11:31 O2 Del Method Room Air 12/21/24 11:31 BMI result Body Mass Index 22.4 Gen: in no acute distress HEENT: sclera anicteric, moist mucus membranes Neck: supple Lungs: clear to auscultation bilaterally Heart: regular rate and rhythm, no murmurs Abd: soft, non-tender, non-distended Ext: no edema Skin: warm/well-perfused Neuro: alert and oriented to self/place, no focal weakness, visual deficit L lower temporal field Psych: appropriate affect DS: Data Data Completed and Pending Completed studies during hospitalization [Text1]: Laboratory Results WBC 9.0 X10*3/uL (4.8-10.8) 12/21/24 06:20 RBC 3.88 X10*6/uL (4.20-5.50) L 12/21/24 06:20 Hgb 12.0 g/dl (12.0-16.0) 12/21/24 06:20 Hct 35.9 % (37.0-47.0) L 12/21/24 06:20 MCV 92.5 fL (80.0-98.0) 12/21/24 06:20 MCH 30.9 pg (27.0-33.0) 12/21/24 06:20 MCHC 33.4 g/dl (31.0-35.0) 12/21/24 06:20 RDW 14.1 % (11.0-16.0) 12/21/24 06:20 Plt Count 144 X10*3/uL (160-400) L 12/21/24 06:20 MPV 11.8 fL (9.4-12.3) 12/21/24 06:20 Immature Gran % (Auto) 1.0 % (0.0-0.4) H 12/19/24 06:41 Neut % (Auto) 66.9 % (45-73) 12/19/24 06:41 Lymph % (Auto) 14.4 % (20-40) L 12/19/24 06:41 [place] % (Auto) 6.7 % (2-11) 12/19/24 06:41 Eos % (Auto) 10.7 % (0-4) H 12/19/24 06:41 Baso % (Auto) 0.3 % (0-2) 12/19/24 06:41 Lymph # (Auto) 1.3 X10*3/uL (1.2-4.9) 12/19/24 06:41 [place] # (Auto) 0.6 X10*3/uL (0.1-1.2) 12/19/24 06:41 Eos # (Auto) 1.0 X10*3/uL (0.0-0.4) H 12/19/24 06:41 Baso # (Auto) 0.0 X10*3/uL (0.0-0.2) 12/19/24 06:41 Abs Immat Gran (auto) 0.09 X10*3/uL (0.00-0.03) H 12/19/24 06:41 Absolute Neuts (auto) 6.2 x10*3/uL (2.0-8.3) 12/19/24 06:41 Absolute Nucleated RBC 0.000 X10*3/uL (0.0-0.012) 12/21/24 06:20 Nucleated RBC % (auto) 0.0 /100WBC (0.0-0.2) 12/21/24 06:20 Smear Tech's Comments VERIFIED 12/18/24 16:34 PT 11.7 SEC (10.9-12.4) 12/20/24 11:22 INR 1.0 (0.9-1.1) 12/20/24 11:22 Sodium 139 mmol/L (135-145) 12/21/24 10:37 Potassium 3.4 mmol/L (3.3-5.1) D 12/21/24 06:20 Chloride 113 mmol/L (96-108) H 12/21/24 06:20 Carbon Dioxide 17 mmol/L (22-29) L 12/21/24 06:20 Anion Gap 12 (12-20) 12/21/24 06:20 BUN 16 mg/dL (9-16) 12/21/24 06:20 Creatinine 0.69 mg/dL (0.5-1.4) 12/21/24 06:20 Estim Creat Clear Calc 43.5 12/21/24 06:20 Estimated GFR > 60 12/21/24 06:20 POC Glucose 91 mg/dL (60-115) 12/18/24 21:04 Random Glucose 83 mg/dL (60-115) 12/21/24 06:20 Calcium 8.4 mg/dL (8.4-10.2) 12/21/24 06:20 Total Bilirubin 0.5 mg/dL (0.0-1.0) 12/18/24 17:01 AST 20 U/L (5-31) 12/18/24 17:01 ALT < 6 U/L (0-31) 12/18/24 17:01 Alkaline Phosphatase 75 U/L (39-117) 12/18/24 17:01 B-Natriuretic Peptide 371 pg/mL (<100) H 12/19/24 06:41 Total Protein 6.2 g/dL (6.5-8.0) L 12/18/24 17:01 Albumin 3.6 g/dL (3.5-5.0) 12/18/24 17:01 Triglycerides 205 mg/dL (<150) H 12/19/24 06:41 Cholesterol 149 mg/dL (<200) 12/19/24 06:41 LDL Cholesterol, Calc 83 mg/dL (<100) 12/19/24 06:41 HDL Cholesterol 25 mg/dL (>40) L 12/19/24 06:41 Procalcitonin 0.11 ng/mL 12/20/24 06:27 TSH 3.46 uIU/mL (0.32-4.0) 12/19/24 06:41 Urine Color Yellow 12/18/24 16:13 Urine Appearance Clear 12/18/24 16:13 Urine pH 5.5 (5.0-9.0) 12/18/24 16:13 Ur Specific [place] 1.015 (1.005-1.025) 12/18/24 16:13 Urine Protein 30 (1+) mg/dL (Neg-Trace) H 12/18/24 16:13 Urine Glucose (UA) Negative mg/dL (Negative) 12/18/24 16:13 Urine Ketones Trace mg/dL (Negative) 12/18/24 16:13 Urine Blood Negative (Negative) 12/18/24 16:13 Urine Nitrite Negative (Negative) 12/18/24 16:13 Ur Leukocyte Esterase Trace (Negative) H 12/18/24 16:13 Urine RBC 0-2 /HPF (0-2) 12/18/24 16:13 Urine WBC 0-5 /HPF (0-5) 12/18/24 16:13 Ur Squamous Epith Cells 3-5 /HPF (0-2) 12/18/24 16:13 Urine Bacteria None Seen (None Seen) 12/18/24 16:13 Hyaline Casts 3-5 /LPF (0-2) 12/18/24 16:13 Influenza Type A (PCR) NEGATIVE (Negative) 12/18/24 16:34 Influenza Type B (PCR) NEGATIVE (Negative) 12/18/24 16:34 RSV RNA Qual (PCR) NEGATIVE (Negative) 12/18/24 16:34 SARS-CoV-2 RNA (RT-PCR) NEGATIVE (Negative) 12/18/24 16:34 Impressions MRI brain 12/19/24 Right occipital lobe acute ischemic infarct. Additionally multiple small foci of restricted diffusion within the right frontal lobe concerning for acute embolic infarcts. Moderate generalized cerebral volume loss and severe chronic microvascular ischemic changes the periventricular and subcortical white matter. Carotid Doppler Study 12/19/24 07:32 IMPRESSION: 1. RIGHT: Irregular mixed plaque. 0-49% stenosis by ultrasound criteria. 2. LEFT: Irregular mixed plaque. 0-49% stenosis by ultrasound criteria. CT chest 12/18/24 1. Small bilateral pleural effusions with adjacent atelectasis or infiltrates and mild interstitial edema. 2. There is a 1 cm lingular nodule. Recommend follow-up CT in [address] head 12/18/24 Acute right parietal lobe infarct. Labs on day of discharge: Laboratory Results - last 24 hr 12/20/24 12/21/24 12/21/24 14:49 06:20 10:37 WBC 9.0 RBC 3.88 L Hgb 12.0 Hct 35.9 L MCV 92.5 MCH 30.9 MCHC 33.4 RDW 14.1 Plt Count 144 L MPV 11.8 Absolute Nucleated RBC 0.000 Nucleated RBC % (auto) 0.0 Sodium 144 139 139 Potassium 3.4 D Chloride 113 H Carbon Dioxide 17 L Anion Gap 12 BUN 16 Creatinine 0.69 Estim Creat Clear Calc 43.5 Estimated GFR > 60 Random Glucose 83 Calcium 8.4 Discharge Plan Discharge Anticipated Discharge Date/Time: 12/21/24 12:34 Patient Disposition: Xfer SNF Discharge Diagnosis: acute embolic stroke aspiration pneumonia acute kidney injury [resolved] lung nodule Referrals: [facility] [Outside] - 1 Week Omar Siu MD [Primary Care Provider] - 1 Week Discharge Medications: New nicotine (polacrilex) 2 mg lozenge 2 mg buccal Q2-4H PRN (Reason: nicotine cravings) Qty: 108 0RF atorvastatin 40 mg Tablet 40 mg PO DAILY Qty: 30 0RF clopidogrel 75 mg Tablet 75 mg PO DAILY Qty: 30 0RF aspirin 81 mg Tablet,Chewable 81 mg PO DAILY Qty: 30 0RF Continued Rytary 61.25-245 mg capsule, extended release 1 cap PO QID 30 Days Qty: 120 6RF Rx Instructions: at 7:30am, 11:30am, 4:30pm, 8pm selegiline HCl 5 mg tablet 5 mg PO BID 30 Days Qty: 60 6RF quetiapine 25 mg tablet 25 mg PO BEDTIME PRN (Reason: Sleep) cholecalciferol (vitamin D3) [Vitamin D3] 25 mcg (1,000 unit) Tablet 25 mcg PO DAILY ascorbic acid (vitamin C) 500 mg Tablet 500 mg PO DAILY levothyroxine 75 mcg tablet 75 mcg PO DAILY@0600 mecobalamin (vitamin B12) 1,000 mcg tablet,chewable 1,000 mcg PO DAILY Discharge Orders: Discharge Order (Routine); Ordered 12/21/24 Ordered By: Riley Campos Diet: Mediterranean Activity on Discharge: As tolerated Stand Alone Forms: Patient Portal Discharge page Print Language: Kittitian Care Plan Goals: recovery from stroke Health Concerns: acute embolic stroke aspiration pneumonia acute kidney injury [resolved] lung nodule Plan of Treatment: PT, OT, and MASS COMMUNICATIONS PROFESSOR at short-term rehabilitation for stroke prevention, take aspirin 81 mg daily PLUS clopidogrel 75 mg daily; also atorvastatin 40 mg daily amoxicillin-clavulanate twice daily for 3 days quit smoking; use nicotine lozenge to help repeat CT of the chest in 3 months to ensure lung nodule is benign Please follow up with your primary care doctor within 1 week of discharge from SNF. Return to the hospital if you experience recurrent or worsening symptoms. Assessment: See Discharge Summary.
[2024-12-21 12:48] LABS: Sodium 141 mmol/L (135-145)
== END 2024-12-21 13:08 | disposition skilled nursing facility (03) | DRG 64 ==
LOC: HO.ED 19:25 → HO.EDOVER 20:42 → HO.IMC 12-19 02:07
PROVIDERS: Admitting Provider Internal Medicine; Emergency Provider Emergency Medicine; PCP Family Medicine; Visit Provider Family Medicine
DX: I63.40 Cerebral infarction due to embolism of unspecified cerebral artery (principal); G93.41 Metabolic encephalopathy; J69.0 Pneumonitis due to inhalation of food and vomit; N17.9 Acute kidney failure, unspecified; F01.C18 Vascular dementia, severe, with other behavioral disturbance; F02.C18 Dementia in other diseases classified elsewhere, severe, with other behavioral disturbance; E87.0 Hyperosmolality and hypernatremia; I08.0 Rheumatic disorders of both mitral and aortic valves; R29.703 NIHSS score 3; E03.9 Hypothyroidism, unspecified; G20.A1 Parkinson's disease without dyskinesia, without mention of fluctuations; Z20.822 Contact with and (suspected) exposure to COVID-19; Z87.891 Personal history of nicotine dependence; Z79.890 Hormone replacement therapy; Z79.899 Other long term (current) drug therapy
CPT/HCPCS: 0241U; 36415; 70450; 70551; 71045; 71250; 80048; 80053; 80061; 81001; 82947; 83880; 84145; 84295; 84443; 85025; 85027; 85610; 92526; 92610; 93005; 93306; 93880; 95816; 97116; 97162; 97166; 97530; 97535; 99285; J0295; J1650; J2359

== ENCOUNTER → 2024-12-18 17:24 | Outpatient (BNV) | payer MEDICARE, OTHER, SELFPAY | PROVIDERS: PCP Family Medicine; Visit Provider Radiology Diagnostic Radiology | DX: I63.531 Cerebral infarction due to unspecified occlusion or stenosis of right posterior cerebral artery (principal); J81.0 Acute pulmonary edema; J90 Pleural effusion, not elsewhere classified; J98.11 Atelectasis; R91.1 Solitary pulmonary nodule | CPT/HCPCS: 70450; 71250 ==

== ENCOUNTER 2024-12-18 20:33 | Outpatient (BNV) | payer MEDICARE, OTHER, SELFPAY | END 2024-12-19 07:32 | PROVIDERS: Admitting Provider Internal Medicine; Emergency Provider Emergency Medicine; PCP Family Medicine; Visit Provider Radiology Diagnostic Radiology | DX: I63.9 Cerebral infarction, unspecified (principal) | CPT/HCPCS: 93880 ==

== ENCOUNTER 2024-12-18 20:33 | Outpatient (BNV) | payer MEDICARE, OTHER, SELFPAY | END 2024-12-19 07:00 | PROVIDERS: Admitting Provider Internal Medicine; Emergency Provider Emergency Medicine; PCP Family Medicine; Visit Provider Internal Medicine Cardiovascular Disease | DX: I35.0 Nonrheumatic aortic (valve) stenosis (principal); I34.0 Nonrheumatic mitral (valve) insufficiency; I35.8 Other nonrheumatic aortic valve disorders; I34.81 Nonrheumatic mitral (valve) annulus calcification | CPT/HCPCS: 93306 ==

== ENCOUNTER → 2024-12-18 20:33 | Outpatient (BNV) | payer MEDICARE, OTHER, SELFPAY | PROVIDERS: Admitting Provider Internal Medicine; Emergency Provider Emergency Medicine; PCP Family Medicine; Visit Provider Internal Medicine | DX: I63.9 Cerebral infarction, unspecified (principal); N17.9 Acute kidney failure, unspecified; J69.0 Pneumonitis due to inhalation of food and vomit; G20.A1 Parkinson's disease without dyskinesia, without mention of fluctuations; F02.818 Dementia in other diseases classified elsewhere, unspecified severity, with other behavioral disturbance | CPT/HCPCS: 99223; 99232; 99239 ==

== ENCOUNTER → 2024-12-18 20:33 | Outpatient (BNV) | payer MEDICARE, OTHER, SELFPAY | PROVIDERS: Admitting Provider Internal Medicine; Emergency Provider Emergency Medicine; PCP Family Medicine; Visit Provider Psychiatry & Neurology Neurology | DX: G20.A1 Parkinson's disease without dyskinesia, without mention of fluctuations (principal); F02.B18 Dementia in other diseases classified elsewhere, moderate, with other behavioral disturbance; G93.40 Encephalopathy, unspecified | CPT/HCPCS: 99222 ==

== ENCOUNTER 2025-01-21 11:49 | Emergency (ER) | payer MEDICARE, OTHER, SELFPAY ==
--- NOTE | ~2025-01-21 | CT_ITS ---
EXAMINATION: CT HEAD WITHOUT IV CONTRAST STROKE HISTORY: difficulty walking, seeing. TECHNIQUE: Unenhanced helical CT of the head was performed per standard departmental protocol. Coronal and sagittal reformats of the head were also evaluated. One or more of the following techniques was used for dose reduction: Automated exposure control, adjustment of the mA and/or kV according to patient size, use of iterative reconstruction technique. DLP: 567 mGy-cm COMPARISON: There are no prior studies for comparison. FINDINGS: BRAIN: There is diffuse prominence of the ventricular system and cortical sulci, consistent with atrophy. Periventricular and subcortical white matter hypodensities are noted which are nonspecific, but often seen in the setting of small vessel ischemic disease. 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 There is no mass effect or midline shift. No intra- or extra-axial fluid collections are identified. A 10 mm calcification along the inner table of the right parietal bone is compatible with a meningioma. SINUSES: The visualized paranasal sinuses are clear. The mastoid air cells and middle ear cavities are well pneumatized. ORBITS: The visualized orbits are unremarkable. BONES/SOFT TISSUES: The extracranial soft tissues are unremarkable. The calvarium is intact. No suspicious lytic or sclerotic lesions. CT/CT head for STROKE IMPRESSION: No acute intracranial abnormality. Electronically signed by: Drew Mcghee MD 01/21/2025 12:23 PM EDT
--- NOTE | ~2025-01-21 | XR_ITS ---
EXAMINATION: XR CHEST CLINICAL INFORMATION: weakness COMPARISON: None available. TECHNIQUE: Frontal view of the chest was obtained. FINDINGS: The cardiac, hilar, and mediastinal contours are normal. Aortic mural calcification. The lungs are clear bilaterally. No pneumothorax or effusion. No focal osseous or soft tissue abnormality. Calcification of the left rotator cuff. Degenerative spinal changes. Residual contrast in both renal collecting systems. XR/XR chest 1V IMPRESSION: No active pulmonary disease. Electronically signed by: Ward Antonio MD 01/21/2025 12:53 PM EDT
--- NOTE | ~2025-01-21 | CT_ITS ---
EXAMINATION: CT ANGIOGRAM HEAD AND NECK CLINICAL INFORMATION: Difficulty walking and difficulty seeing. COMPARISON: Noncontrast head CT performed earlier same day. MRI brain 12/19/2024. TECHNIQUE: Noncontrast axial imaging of the head was performed. This was followed by test bolus sequences and head and neck intravenous bolus administration 70 mL of Omnipaque 350. Helical imaging was performed in the axial plane from the aortic arch to the skull vertex. A [address] head was also obtained. The data was processed at the biochemistry technologist's workstation for generation of MIP sequences. Angled MIPs and volume rendered reformatted images were also generated at an offline 3D workstation. Stenoses are assessed in accordance with NASCET criteria unless otherwise indicated. This CT examination was performed using dose optimization techniques as appropriate, variously including the following: *Automated exposure control *Adjustment of mA and/or kV according to patient size (this includes techniques or standardized protocols for targeted exams where dose is matched to indication/reason for exam; i.e. extremities or head) *Use of iterative reconstruction technique FINDINGS: NECK CTA: -AORTIC ARCH: Normal caliber. Moderate to heavy calcific and soft atheromatous plaque. Three-vessel branching pattern. -GREAT VESSEL ORIGINS: Widely patent at the origins. -RIGHT COMMON CAROTID ARTERY: Normal in course and caliber to the level of the bifurcation. -CERVICAL RIGHT INTERNAL CAROTID ARTERY: There is approximately 50% diameter reduction at the origin of the right MILLER secondary to a mix of calcific and soft plaque. Remainder of the vessel is normal in course and caliber into the skull base. -LEFT COMMON CAROTID ARTERY: Normal in course and caliber to the level of the bifurcation. -CERVICAL LEFT INTERNAL CAROTID ARTERY: There is approximately 30% diameter reduction secondary to predominantly calcific plaque at the origin of the left ICA. Remainder of the vessel is normal in course and caliber into the skull base. -CERVICAL RIGHT VERTEBRAL ARTERY: Nondominant. Normal origin. Normal in course and caliber. -CERVICAL LEFT VERTEBRAL ARTERY: Dominant. Normal origin. Normal in course and caliber. OTHER, SOFT TISSUES: -Diminutive thyroid. -Lung apices demonstrate biapical scarring, mild centrilobular emphysema, and mild thickening of the small airways. CTA OF THE BRAIN: -INTRACRANIAL INTERNAL CAROTID ARTERIES: Calcific atherosclerotic disease of the intracranial internal carotid arteries without occlusion or flow-limiting stenosis. 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 -RIGHT ANTERIOR CEREBRAL ARTERY: The A1 segment is diminutive. Normal arborization of the distal segments. -LEFT ANTERIOR CEREBRAL ARTERY: Normal A1 segment. Normal arborization of the distal segments. -ANTERIOR COMMUNICATING ARTERY: Normal. -RIGHT MIDDLE CEREBRAL ARTERY: Normal M1 segment of the MCA without focal stenosis or occlusion. Normal arborization of the distal segments. -LEFT MIDDLE CEREBRAL ARTERY: Normal M1 segment of the MCA without focal stenosis or occlusion. Normal arborization of the distal segments. -RIGHT VERTEBRAL ARTERY V4: Normal in course and caliber. Normal PICA branch. -LEFT VERTEBRAL ARTERY V4: Normal in course and caliber. Normal PICA branch. -BASILAR ARTERY: Normal without focal stenosis or occlusion. Normal appearance of the proximal superior cerebellar arteries. Normal basilar tip. -RIGHT POSTERIOR CEREBRAL ARTERY: Short segment moderate grade stenosis of the proximal P1 segment. Focal high-grade stenosis at the junction of the A1 and A2 segments (series 12, image 97). Normal opacification of the distal RESIDENTIAL CAREGIVER segments. -LEFT POSTERIOR CEREBRAL ARTERY: Normal P1 segment. Normal opacification of the distal RESIDENTIAL CAREGIVER segments. -POSTERIOR COMMUNICATING ARTERIES: Poorly seen bilaterally. Normal opacification of the superior sagittal, straight, transverse, and sigmoid sinuses. No venous thrombosis. No definite evolving territory infarct or space-occupying hemorrhage. CT/CT angio head neck STROKE IMPRESSION: CTA NECK: 1. Approximate 50% stenosis of the right ICA at the origin secondary to mixed plaque. 2. Approximate 30% stenosis of the left ICA at the origin secondary to predominately calcific plaque. 3. Patent vertebral arteries. The left is dominant. CTA HEAD: 1. No large vessel occlusion. 2. Moderate grade focal stenosis right P1 segment RESIDENTIAL CAREGIVER, followed by a high-grade stenosis of the P1/P2 junction. The remainder of the vessel and branches appear to opacify normally. 3. 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 4. There is a no additional significant stenosis or occlusion in the intracranial circulation. Findings discussed with Dr. Avelar of the [facility] at 12:45 PM, 01/21/2025. Electronically signed by: Ward Antonio MD 01/21/2025 12:49 PM EDT
--- NOTE | ~2025-01-21 | MR_ITS ---
EXAMINATION: MR BRAIN WITHOUT CONTRAST CLINICAL INFORMATION: Recent stroke, right occipital and probably embolic in the right frontal regions. COMPARISON: December 19, 2024. TECHNIQUE: MRI of the brain was obtained using routine sequences without contrast. FINDINGS: Limited by patient's motion artifact. There is a subcortical hyperintense FLAIR and diffusion signal right occipital parietal region with isointense ADC map values. There is a focal punctate right frontal deep white matter hyperintense T2 FLAIR diffusion weighted image with isointense ADC map values. There is decreased almost no visible diffusion weighted signal foci in the right precentral gyrus and right frontal subcortical white matter. No new areas of restricted diffusion. No acute intracranial hemorrhage, mass effect, midline shift, hydrocephalus or herniation. Bilateral multifocal patchy and confluent deep periventricular white matter hyperintense T2 FLAIR signal involving centrum semiovale and centeno radiata and to a lesser extent sebastian. Old lacunar infarcts with the cribriform pattern in the basal ganglia. Prominence of the extra-axial CSF spaces cerebral sulci and ventricles. Flow-void signal within the main cerebral vessels is normal. Sellar/suprasellar region demonstrated no gross signal abnormality or masses. Craniocervical junction is intact. MR/MR head/brain wo con IMPRESSION: No new areas of acute stroke/ischemia. 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 Small vessel occlusive disease. Global atrophy. Electronically signed by: Dorian Brunner MD 01/21/2025 03:56 PM EDT
--- NOTE | 2025-01-21 11:54 | ED.GENADULT ---
HPI - General Adult General Chief complaint: Stroke Stated complaint: ?STROKE,LKWT [id number],AMS,-[facility]IN[facility] PER EMS Time Seen by Provider: 01/21/25 11:54 History of Present Illness ED Provider: Valentino SHRESTHA narrative: The patient is an 84-year-old woman with a history of Parkinson's disease and dementia. She was hospitalized last month for altered mental status attributed to a stroke. She had an MRI on December 19 that suggested multiple foci of ischemia suggestive of embolic infarcts. There was no evidence of atrial fibrillation or flutter on telemetry. She was started on dual antiplatelet therapy with aspirin and clopidogrel. A transthoracic echo showed a normal left ventricle an ejection fraction. She was also started on atorvastatin and nicotine lozenges at discharge on December 21. The patient has been at home. Last night she seemed to be acting strangely at dinner. Apparently she seemed unaware that there was food on her plate. Later she apparently seemed normal and her put her to bed. At around 23:00 she seemed to have a lot of hallucinations and seemed quite frightened. Nevertheless her was ultimately able to calm her down. This morning a REVENUE AUDIT CLERK arrived at around 08:00 and the patient seemed to be close to her baseline. The REVENUE AUDIT CLERK provided her with a breakfast and then left the house. The REVENUE AUDIT CLERK returned at around 10:00 and the patient was sleeping in a recliner. The REVENUE AUDIT CLERK got the patient in a wheelchair and took her to the bathroom for a shower. The patient was able to pivot to help get into the shower but while in the shower the REVENUE AUDIT CLERK was worried that the patient was behaving strangely. She seemed to be staring off and not speaking and may have had some right arm weakness. Ultimately the REVENUE AUDIT CLERK was able to get the patient out of the shower. The REVENUE AUDIT CLERK and the called the patient has PCP and they were encouraged to call 911. On arrival here the patient was awake and alert and speaking reasonably well although she was exhibiting abnormal movements consistent with Parkinson's and she had an abnormal demeanor consistent with some degree of dementia. No report of any fevers. No complain of headache or vomiting. No chest pain or shortness of breath. No abdominal pain, nausea, vomiting.. Related Data Home Medications ?Medication ?Instructions ?Recorded ?Confirmed levothyroxine 75 mcg tablet 75 mcg PO DAILY@0600 01/19/22 12/18/24 mecobalamin (vitamin B12) 1,000 1,000 mcg PO DAILY 04/05/23 12/18/24 mcg chewable tablet ascorbic acid (vitamin C) 500 mg 500 mg PO DAILY 07/22/23 12/18/24 tablet cholecalciferol (vitamin D3) 25 25 mcg PO DAILY 12/18/24 12/18/24 mcg (1,000 unit) tablet (Vitamin D3) quetiapine 25 mg tablet 25 mg PO BEDTIME PRN Sleep 12/18/24 12/18/24 Previous Rx's ?Medication ?Instructions ?Recorded carbidopa ER 61.25 mg-levodopa 245 1 cap PO QID 30 days #120 caps 05/03/24 mg capsule,extended release (Rytary) selegiline HCl 5 mg tablet 5 mg PO BID 30 days #60 tabs 12/17/24 nicotine (polacrilex) 2 mg buccal 2 mg buccal Q2-4H PRN nicotine 12/20/24 lozenge cravings #108 ea aspirin 81 mg chewable tablet 81 mg PO DAILY #30 tabs 12/21/24 atorvastatin 40 mg tablet 40 mg PO DAILY #30 tabs 12/21/24 clopidogrel 75 mg tablet 75 mg PO DAILY #30 tabs 12/21/24 Allergies Allergy/AdvReac Type Severity Reaction Status Date / Time alendronate sodium AdvReac Unknown Unknown Verified 01/21/25 12:06 [From Fosamax] Review of Systems Review of Systems: Yes all other systems are reviewed and are negative PMFSH Past Medical History Medical History (Updated 01/21/25 @ 17:18 by Joss Avelar MD) Multifactorial dementia Dementia with behavioral disturbance Parkinson's disease Aortic stenosis, mild Hypothyroidism Surgical History Hx of colonoscopy History of hand surgery History of total hip replacement Family History Family History Sister AAA (abdominal aortic aneurysm) Social History Social History Household Members: Spouse and Caregiver Household Members Other:: was a rehab and home for 1 day Housing: Condominium Do you presently have visiting nurse or other home services: Yes Alcohol intake: former 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 Patient Tobacco Use Status: Former Tobacco user Tobacco use type: Cigarette Cigarettes Per Day: 4 Years Smoked: 35 Smoked in Last 30 Days: No Second Hand Smoke Exposure: No Use of substances other than those prescribed or required for medical reasons: No Advance Directives: Yes Advance Directives on File: Yes Advance Directives Date on File: 08/10/23 service: No Current occupational status: retired and disabled 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 She seems to have some abnormal movements Neuro Other: The patient was awake and alert. She was exhibiting obvious abnormal body movements suggestive of Parkinson's disease. She could tell me her age and the correct month. Eye movements were intact. Visual tobar are intact. No obvious facial asymmetry. Speech was without aphasia or dysarthria. She moves her extremities symmetrically (she has some left shoulder limitations) and does not seem to have pronator drift. Finger-nose and heel-gomez seem reasonably intact. Gait cannot be assessed because the patient is not normally ambulatory. NIH stroke scale seems to be 0. Medications Administered Discontinued Medications Generic Name Dose Route Start Last Admin Trade Name Freq PRN Reason Stop Dose Admin Iohexol 70 ml 01/21/25 12:19 01/21/25 12:20 Iohexol 350 Mg/Ml 100 Ml Infus..Btl IV 01/21/25 12:20 70 ml ONCE ONE Administration Medical Decision Making Medical Decision Making MDM Narrative: The patient is an 84-year-old woman with a history of dementia and Parkinson's disease. 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 She was hospitalized here and started on dual antiplatelet therapy with a baby aspirin and clopidogrel. Patient has had a variety of symptoms yesterday evening and this morning. Yesterday evening she had an episode where it was not clear if she could see the food on her plate. Later she had rather paranoid hallucinations when she went to bed. This morning her REVENUE AUDIT CLERK was giving her shower when the patient seemed to have an episode of possible dissociation. On arrival here in the emergency room she did not seem to have any clear focal neurological deficit but when her IV was adjusted by her nurse she seemed to have some kind of a panic episode. Her exam was complicated by her emotional responses and by her dementia. Ultimately I elected to proceed with a head CT and CT angiogram of the head and neck given her history of previous embolic stroke. These tests did not show any definite acute findings and her other testing was unremarkable. I obtained an MRI to see if there was any definite sign of acute ischemia. The MRI was negative. The MRI shows the previous strokes but no acute ischemia. The was also very concerned about the possibility of a UTI. Her urinalysis is negative. Ultimately the patient seemed stable for awhile and the would like to take her home. I think this is reasonable. At the time of discharge the patient became very acutely agitated but I think this is part of the patient's intermittent baseline behavior. The remained comfortable taking her home. Lab Data 01/21/25 12:04 01/21/25 12:04 Labs: Lab Results 01/21/25 01/21/25 01/21/25 Range/Units 11:53 12:01 12:04 WBC 5.6 (4.8-10.8) X10*3/uL RBC 3.73 L (4.20-5.50) X10*6/uL Hgb 11.6 L (12.0-16.0) g/dl Hct 35.6 L (37.0-47.0) % MCV 95.4 (80.0-98.0) fL MCH 31.1 (27.0-33.0) pg MCHC 32.6 (31.0-35.0) g/dl RDW 14.6 (11.0-16.0) % Plt Count 203 (160-400) X10*3/uL MPV 11.6 (9.4-12.3) fL Immature Gran % (Auto) 0.2 (0.0-0.4) % Neut % (Auto) 64.4 (45-73) % Lymph % (Auto) 21.3 (20-40) % [place] % (Auto) 8.0 (2-11) % Eos % (Auto) 5.2 H (0-4) % Baso % (Auto) 0.9 (0-2) % Lymph # (Auto) 1.2 (1.2-4.9) X10*3/uL [place] # (Auto) 0.5 (0.1-1.2) X10*3/uL Eos # (Auto) 0.3 (0.0-0.4) X10*3/uL Baso # (Auto) 0.1 (0.0-0.2) X10*3/uL Abs Immat Gran (auto) 0.01 (0.00-0.03) X10*3/uL Absolute Neuts (auto) 3.6 (2.0-8.3) x10*3/uL Absolute Nucleated RBC 0.000 (0.0-0.012) X10*3/uL Nucleated RBC % (auto) 0.0 (0.0-0.2) /100WBC PT (10.9-12.4) SEC Whole Blood PT 11.4 (11.1-13.5) sec INR (0.9-1.1) Whole Blood INR 0.9 (0.9-1.1) VBG pH (7.32-7.43) VBG pCO2 mmHg VBG pO2 mmHg VBG HCO3 (22-26) mmol/L VBG O2 Saturation % VBG Base Excess mmol/L Sodium 141 (135-145) mmol/L Potassium 4.2 (3.3-5.1) mmol/L Chloride 114 H (96-108) mmol/L Carbon Dioxide 22 (22-29) mmol/L Anion Gap 9 L (12-20) BUN 19 H (9-16) mg/dL Creatinine 0.65 (0.5-1.4) mg/dL Estim Creat Clear Calc 48.5 Estimated GFR > 60 POC Glucose 83 (60-115) mg/dL Random Glucose 106 (60-115) mg/dL Calcium 9.3 (8.4-10.2) mg/dL Magnesium 2.0 (1.6-2.6) mg/dL Total Bilirubin 0.5 (0.0-1.0) mg/dL Direct Bilirubin 0.2 (0.0-0.5) mg/dL AST 24 (5-31) U/L ALT 12 (0-31) U/L Alkaline Phosphatase 73 (39-117) U/L Troponin I High Sens < 2.7 (<3.5-17.0) ng/L C-Reactive Protein < 0.04 (< or = 0.50) mg/dL B-Natriuretic Peptide 65 (<100) pg/mL Total Protein 6.8 (6.5-8.0) g/dL Albumin 4.0 (3.5-5.0) g/dL Lipase 15 (8-78) U/L Urine Color Urine Appearance Urine pH (5.0-9.0) Ur Specific [place] (1.005-1.025) Urine Protein (Neg-Trace) mg/dL Urine Glucose (UA) (Negative) mg/dL Urine Ketones (Negative) mg/dL Urine Blood (Negative) Urine Nitrite (Negative) Ur Leukocyte Esterase (Negative) Urine Opiates Screen (Not Detect) Ur Buprenorphine Scrn (Not Detect) ng/mL Ur Oxycodone Screen (Not Detect) ng/mL Urine Methadone Screen (Not Detect) ng/mL Urine Fentanyl Screen (Not Detect) Ur Barbiturates Screen (Not Detect) Ur Phencyclidine Scrn (Not Detect) Ur Amphetamines Screen (Not Detect) U Benzodiazepines Scrn (Not Detect) Urine Cocaine Screen (Not Detect) U Marijuana (THC) Screen (Not Detect) Ethyl Alcohol < 10 mg/dL Influenza Type A (PCR) (Negative) Influenza Type B (PCR) (Negative) RSV RNA Qual (PCR) (Negative) SARS-CoV-2 RNA (RT-PCR) (Negative) 01/21/25 01/21/25 01/21/25 Range/Units 12:19 12:28 16:23 WBC (4.8-10.8) X10*3/uL RBC (4.20-5.50) X10*6/uL Hgb (12.0-16.0) g/dl Hct (37.0-47.0) % MCV (80.0-98.0) fL MCH (27.0-33.0) pg MCHC (31.0-35.0) g/dl RDW (11.0-16.0) % Plt Count (160-400) X10*3/uL MPV (9.4-12.3) fL Immature Gran % (Auto) (0.0-0.4) % Neut % (Auto) (45-73) % Lymph % (Auto) (20-40) % [place] % (Auto) (2-11) % Eos % (Auto) (0-4) % Baso % (Auto) (0-2) % Lymph # (Auto) (1.2-4.9) X10*3/uL [place] # (Auto) (0.1-1.2) X10*3/uL Eos # (Auto) (0.0-0.4) X10*3/uL Baso # (Auto) (0.0-0.2) X10*3/uL Abs Immat Gran (auto) (0.00-0.03) X10*3/uL Absolute Neuts (auto) (2.0-8.3) x10*3/uL Absolute Nucleated RBC (0.0-0.012) X10*3/uL Nucleated RBC % (auto) (0.0-0.2) /100WBC PT 12.1 (10.9-12.4) SEC Whole Blood PT (11.1-13.5) sec INR 1.0 (0.9-1.1) Whole Blood INR (0.9-1.1) VBG pH 7.36 (7.32-7.43) VBG pCO2 49 mmHg VBG pO2 30 mmHg VBG HCO3 28 H (22-26) mmol/L VBG O2 Saturation 46.0 % VBG Base Excess 2.4 mmol/L Sodium (135-145) mmol/L Potassium (3.3-5.1) mmol/L Chloride (96-108) mmol/L Carbon Dioxide (22-29) mmol/L Anion Gap (12-20) BUN (9-16) mg/dL Creatinine (0.5-1.4) mg/dL Estim Creat Clear Calc Estimated GFR POC Glucose (60-115) mg/dL Random Glucose (60-115) mg/dL Calcium (8.4-10.2) mg/dL Magnesium (1.6-2.6) mg/dL Total Bilirubin (0.0-1.0) mg/dL Direct Bilirubin (0.0-0.5) mg/dL AST (5-31) U/L ALT (0-31) U/L Alkaline Phosphatase (39-117) U/L Troponin I High Sens (<3.5-17.0) ng/L C-Reactive Protein (< or = 0.50) mg/dL B-Natriuretic Peptide (<100) pg/mL Total Protein (6.5-8.0) g/dL Albumin (3.5-5.0) g/dL Lipase (8-78) U/L Urine Color Urine Appearance Urine pH (5.0-9.0) Ur Specific [place] (1.005-1.025) Urine Protein (Neg-Trace) mg/dL Urine Glucose (UA) (Negative) mg/dL Urine Ketones (Negative) mg/dL Urine Blood (Negative) Urine Nitrite (Negative) Ur Leukocyte Esterase (Negative) Urine Opiates Screen (Not Detect) Ur Buprenorphine Scrn (Not Detect) ng/mL Ur Oxycodone Screen (Not Detect) ng/mL Urine Methadone Screen (Not Detect) ng/mL Urine Fentanyl Screen (Not Detect) Ur Barbiturates Screen (Not Detect) Ur Phencyclidine Scrn (Not Detect) Ur Amphetamines Screen (Not Detect) U Benzodiazepines Scrn (Not Detect) Urine Cocaine Screen (Not Detect) U Marijuana (THC) Screen (Not Detect) Ethyl Alcohol mg/dL Influenza Type A (PCR) NEGATIVE (Negative) Influenza Type B (PCR) NEGATIVE (Negative) RSV RNA Qual (PCR) NEGATIVE (Negative) SARS-CoV-2 RNA (RT-PCR) NEGATIVE (Negative) 01/21/25 Range/Units 16:44 WBC (4.8-10.8) X10*3/uL RBC (4.20-5.50) X10*6/uL Hgb (12.0-16.0) g/dl Hct (37.0-47.0) % MCV (80.0-98.0) fL MCH (27.0-33.0) pg MCHC (31.0-35.0) g/dl RDW (11.0-16.0) % Plt Count (160-400) X10*3/uL MPV (9.4-12.3) fL Immature Gran % (Auto) (0.0-0.4) % Neut % (Auto) (45-73) % Lymph % (Auto) (20-40) % [place] % (Auto) (2-11) % Eos % (Auto) (0-4) % Baso % (Auto) (0-2) % Lymph # (Auto) (1.2-4.9) X10*3/uL [place] # (Auto) (0.1-1.2) X10*3/uL Eos # (Auto) (0.0-0.4) X10*3/uL Baso # (Auto) (0.0-0.2) X10*3/uL Abs Immat Gran (auto) (0.00-0.03) X10*3/uL Absolute Neuts (auto) (2.0-8.3) x10*3/uL Absolute Nucleated RBC (0.0-0.012) X10*3/uL Nucleated RBC % (auto) (0.0-0.2) /100WBC PT (10.9-12.4) SEC Whole Blood PT (11.1-13.5) sec INR (0.9-1.1) Whole Blood INR (0.9-1.1) VBG pH (7.32-7.43) VBG pCO2 mmHg VBG pO2 mmHg VBG HCO3 (22-26) mmol/L VBG O2 Saturation % VBG Base Excess mmol/L Sodium (135-145) mmol/L Potassium (3.3-5.1) mmol/L Chloride (96-108) mmol/L Carbon Dioxide (22-29) mmol/L Anion Gap (12-20) BUN (9-16) mg/dL Creatinine (0.5-1.4) mg/dL Estim Creat Clear Calc Estimated GFR POC Glucose (60-115) mg/dL Random Glucose (60-115) mg/dL Calcium (8.4-10.2) mg/dL Magnesium (1.6-2.6) mg/dL Total Bilirubin (0.0-1.0) mg/dL Direct Bilirubin (0.0-0.5) mg/dL AST (5-31) U/L ALT (0-31) U/L Alkaline Phosphatase (39-117) U/L Troponin I High Sens (<3.5-17.0) ng/L C-Reactive Protein (< or = 0.50) mg/dL B-Natriuretic Peptide (<100) pg/mL Total Protein (6.5-8.0) g/dL Albumin (3.5-5.0) g/dL Lipase (8-78) U/L Urine Color Yellow Urine Appearance Cloudy Urine pH 7.0 (5.0-9.0) Ur Specific [place] >= 1.030 H (1.005-1.025) Urine Protein Negative (Neg-Trace) mg/dL Urine Glucose (UA) Negative (Negative) mg/dL Urine Ketones Negative (Negative) mg/dL Urine Blood Negative (Negative) Urine Nitrite Negative (Negative) Ur Leukocyte Esterase Negative (Negative) Urine Opiates Screen Not Detected (Not Detect) Ur Buprenorphine Scrn Not Detected (Not Detect) ng/mL Ur Oxycodone Screen Not Detected (Not Detect) ng/mL Urine Methadone Screen Not Detected (Not Detect) ng/mL Urine Fentanyl Screen Not Detected (Not Detect) Ur Barbiturates Screen Not Detected (Not Detect) Ur Phencyclidine Scrn Not Detected (Not Detect) Ur Amphetamines Screen Not Detected (Not Detect) U Benzodiazepines Scrn Not Detected (Not Detect) Urine Cocaine Screen Not Detected (Not Detect) U Marijuana (THC) Screen Not Detected (Not Detect) Ethyl Alcohol mg/dL Influenza Type A (PCR) (Negative) Influenza Type B (PCR) (Negative) RSV RNA Qual (PCR) (Negative) SARS-CoV-2 RNA (RT-PCR) (Negative) Discharge Plan Discharge Clinical Impression: Acute alteration in mental status Patient Disposition: Home, Self-Care Additional Instructions: Her testing today in the emergency room has been very reassuring. There is no sign of a stroke or any significant infectious process. Please continue all of her regular medications. Please contact your regular doctor for a follow up appointment in the next week or 2 if possible. Return to the emergency room if significantly worse. Prescriptions: No Action Rytary 61.25-245 mg capsule, extended release 1 cap PO QID 30 Days Qty: 120 6RF Rx Instructions: at 7:30am, 11:30am, 4:30pm, 8pm selegiline HCl 5 mg tablet 5 mg PO BID 30 Days Qty: 60 6RF quetiapine 25 mg tablet 25 mg PO BEDTIME PRN (Reason: Sleep) cholecalciferol (vitamin D3) [Vitamin D3] 25 mcg (1,000 unit) Tablet 25 mcg PO DAILY nicotine (polacrilex) 2 mg lozenge 2 mg buccal Q2-4H PRN (Reason: nicotine cravings) Qty: 108 0RF atorvastatin 40 mg Tablet 40 mg PO DAILY Qty: 30 0RF clopidogrel 75 mg Tablet 75 mg PO DAILY Qty: 30 0RF aspirin 81 mg Tablet,Chewable 81 mg PO DAILY Qty: 30 0RF ascorbic acid (vitamin C) 500 mg Tablet 500 mg PO DAILY levothyroxine 75 mcg tablet 75 mcg PO DAILY@0600 mecobalamin (vitamin B12) 1,000 mcg tablet,chewable 1,000 mcg PO DAILY Interventions: ED Discharge Assessment Last Done: 01/21/25 18:38 Discharge Date/Time: 01/21/25 18:40 Print Language: Kosovan
--- NOTE | 2025-01-21 11:55 | ECG_ITS ---
Test Reason : STROKE ALERT Blood Pressure : */* mmHG Vent. Rate : 76 BPM Atrial Rate : 76 BPM P-R Int : 262 ms QRS Dur : 76 ms QT Int : 394 ms P-R-T Axes : 45 6 27 degrees QTcB Int : 443 ms Sinus rhythm with 1st degree A-V block Anteroseptal infarct (cited on or before 26-Nov-2010) Abnormal ECG When compared with ECG of 18-Dec-2024 15:53, No significant changes seen Referred By: Joss Avelar Electronically Signed By: BRIANNA JAVIER
[2025-01-21 11:57] LABS: Glucose, Whole Blood 83 mg/dL (60-115)
[2025-01-21 12:01] VITALS: BP 128/64; BP 135/70; PULSE 80; PULSE 82; RESP 16; TEMP 36.6; O2SAT 100; BMI 17.5
[2025-01-21 12:08] LABS: Prothrombin Time Whole Bld POC 11.4 sec (11.1-13.5); ~PT, ~INR - Anti Coag Clinic 0.9 (0.9-1.1)
[2025-01-21 12:10] LABS: MANUAL DIFF FLAG NO
[2025-01-21 12:11] LABS: Basophils Absolute Auto 0.1 X10*3/uL (0.0-0.2); Basophils Percent Auto 0.9 % (0-2); Eosinophils Absolute Auto 0.3 X10*3/uL (0.0-0.4); Eosinophils Percent Auto 5.2 % (0-4); Hematocrit 35.6 % (37.0-47.0); Hemoglobin 11.6 g/dl (12.0-16.0); Imm Gran Abs Auto 0.01 X10*3/uL (0.00-0.03); Imm Gran Pct Auto 0.2 % (0.0-0.4); Lymphocytes Absolute Auto 1.2 X10*3/uL (1.2-4.9); Lymphocytes Percent Auto 21.3 % (20-40); Mean Corpuscular HGB Conc 32.6 g/dl (31.0-35.0); Mean Corpuscular Hemoglobin 31.1 pg (27.0-33.0); Mean Corpuscular Volume 95.4 fL (80.0-98.0); Mean Platelet Volume 11.6 fL (9.4-12.3); Monocytes Absolute Auto 0.5 X10*3/uL (0.1-1.2); Neutrophils Absolute Auto 3.6 x10*3/uL (2.0-8.3); Neutrophils Percent Auto 64.4 % (45-73); Platelet Count 203 X10*3/uL (160-400); Red Blood Count 3.73 X10*6/uL (4.20-5.50); Red Cell Distribution Width 14.6 % (11.0-16.0); White Blood Count 5.6 X10*3/uL (4.8-10.8)
[2025-01-21] MEDS: iohexoL 350 MG/ML 100 ML INFUS..BTL 70 ML IV (12:20)
[2025-01-21 12:31] LABS: Alanine Aminotransferase 12 U/L (0-31); Alkaline Phosphatase 73 U/L (39-117); Anion Gap 9 (12-20); Aspartate Amino Transferase 24 U/L (5-31); Bilirubin Direct 0.2 mg/dL (0.0-0.5); Bilirubin Total 0.5 mg/dL (0.0-1.0); Blood Urea Nitrogen 19 mg/dL (9-16); C Reactive Protein < 0.04 mg/dL (< or = 0.50); Calcium 9.3 mg/dL (8.4-10.2); Carbon Dioxide 22 mmol/L (22-29); Chloride 114 mmol/L (96-108); Creatinine Clr Calc Pharmacy 48.5; Estimated Glomerular Filt Rate > 60; Ethanol < 10 mg/dL; Glucose Random 106 mg/dL (60-115); Lipase 15 U/L (8-78); Potassium 4.2 mmol/L (3.3-5.1); Sodium 141 mmol/L (135-145); Total Protein 6.8 g/dL (6.5-8.0)
[2025-01-21 12:32] LABS: VBG Base Excess 2.4 mmol/L; VBG HCO3 28 mmol/L (22-26); VBG pCO2 49 mmHg; VBG pH 7.36 (7.32-7.43); VBG pO2 30 mmHg
[2025-01-21 12:33] LABS: Venous Blood Gas Refer to POC result
[2025-01-21 12:35] LABS: B Type Natriuretic Peptide 65 pg/mL (<100)
[2025-01-21 12:39] LABS: Prothrombin Time 12.1 SEC (10.9-12.4)
[2025-01-21 12:43] LABS: Troponin-I High Sensitivity < 2.7 ng/L (<3.5-17.0)
[2025-01-21 12:51] VITALS: BP 145/79; PULSE 83; RESP 16; TEMP 36.4; O2SAT 100
--- NOTE | 2025-01-21 12:56 | MHC.STROKE ---
Met with patient upon arrival to ED via EMS Dr. Avelar evaluated patient while patient was on EMS stretcher. Pt noted to have lots of head and arms movement. She was able to answer questions although seem frightened at times and c/o pain when nurse switching over her IV. Pt tolerated CT scan and moved to bed 18. During transport from CT to room, patient able to state her name, the month, and where she was. Her mood seemed less labile. Dr. Avelar back to room 18 to reassess patient. Pt speaking clearly. Moving all extremities. No slurred speech noted. At times became tearful during conversation, especially when telling the provider about last evening. There was a cat on my bed and I was trying to get him off my bed . Stroke Protocol explained to patient and caregiver. Education provided. Risk factors discussed including med hx, medications, diet, activity, and social hx. Pt recently here in Dec and dx with stroke on her MRI. Started on DAPT Will continue to assist as needed.
[2025-01-21 13:10] VITALS: BP 142/77; PULSE 78; RESP 15; TEMP 36.5; O2SAT 97
--- OUTSIDE RECORDS SUMMARY | 2025-01-21 14:10 | XMS_ITS | Patient Health Record ---
Author Organization [facility] Address [address] [place] [address] Care Team Providers Care Financial Analyst Name Role Phone Omar Siu MD Primary Care Provider Karla Urias Unavailable [phone] [address] Arellano Unavailable [phone] Allergies No Known Allergies Reason For Referral No Information Medications Medication SIG (Take, Route, Frequency, Duration) Notes Start Date End Date Status Vitamin B12 100 MCG 1 tablet Orally Once a day Active Vitamin D Active Rytary 61.25-245 MG Oral for 30 Active Memantine HCl ER 7 MG Oral for 30 Not-Taking Doxycycline Hyclate 100 MG 1 capsule Orally Once a day for 10 day(s) temp 3 or 4 left 03/16/2022 Not-Taking Selegiline Not-Takin g Carbidopa-Levodopa 25-100 MG 1.5tablet Oral Three times a day Active Inhaler Decongestant Active Levothyroxine Sodium 75 MCG 1 tablet every morning on an empty stomach Orally Once a day for 30 day(s) Active Selegiline HCl 5 MG 1 tablet with breakfast and lunch Orally Twice a day for 30 day(s) Active Immunizations Vaccine Route Administration Date Status Comme nts COVID-19 Moderna Vaccine Unknown 10/04/2021 Administered 1st 12/14/20 2nd 01/11/21 Influenza Unknown 10/06/2022 Administered Social History Tobacco Use: Social History Observation Description Date Details (start date - stop date) Current Smoker NA - NA Tobacco Use/Smoking Question Answer Notes Are you a: current smoker How often do you smoke cigarettes? some days, bu t not every day How many cigarettes a day do you smoke? 5 or les s Alcohol Screen Question Answer Notes Did you have a drink contain ing alcohol in the past year? Yes How often did you have a dri nk containing alcohol in the past year? 2 to 4 times a month (2 points) Points 2 Interpretation Negative Tobacco use other than smoking: Question Answer Notes Are you an other tobacco user? No Problems Problem Type SNOMED Code ICD Code Onset Dates Problem Status W/U Status Risk Notes Problem Tinea unguium (632561721) Tinea unguium (B35.1) Active confirmed Problem Non-pressure chronic ulcer of other part of right foot with fat layer exposed (L97.512) Active confirmed Problem Bilateral atherosclerosis of arteries of lower limbs (disorder) (63950116207836526 ) Unspecified atherosclerosis of [place] arteries of extremities, bilateral legs (I70.203) Active confirmed Problem Acquired hallux valgus (72080815) Hallux valgus (acquired), right foot (M20.11) Active confirmed Problem Non-pressure chronic ulcer of other part of left foot limited to breakdown of skin (L97.521) Active confirmed Problem Non-pressure chronic ulcer of other part of right foot limited to breakdown of skin (L97.511) Active confirmed Problem Acquired hammer toe of right foot (9055676223434648) Other hammer toe(s) (acquired), right foot (M20.41) Active confirmed Problem Acquired hammer toe of left foot (9786390755918867) Other hammer toe(s) (acquired), left foot (M20.42) Active confirmed Problem 77204566 Parkinson diseas e (G20) Active confirmed Vital Signs Blood pressure diastolic 80 mm Hg 12/10/2024 Height 5 ft 3 in in 12/10/2024 Blood pressure systolic 120 mm Hg 12/10/2024 Weight 118 lbs 12/10/2024 BMI 20.9 kg/m2 12/10/2024 Procedures Procedure Date Ordered Date Performed Result Body Sit e 60966-XHKZRIH NAIL, 6 OR MORE 12/10/2024 N/A Encounters Encounter Location Date Provider Diagnosis [facility] [address] [place] [address] 03/05/2024 Lane Arellano Tinea unguium B35.1 ; Pain in right toe(s) M79.674 ; Pain in left toe(s) M79.675 ; Unspecified atherosclerosis of [place] arteries of extremities, bilateral legs I70.203 ; Other hammer toe(s) (acquired), left foot M20.42 ; Other hammer toe(s) (acquired), right foot M20.41 and Hallux valgus (acquired), right foot M20.[address] [address] 06/04/2024 Lane Arellano Tinea unguium B35.1 ; Pain in right toe(s) M79.674 ; Pain in left toe(s) M79.675 ; Unspecified atherosclerosis of [place] arteries of extremities, bilateral legs I70.203 ; Other hammer toe(s) (acquired), left foot M20.42 ; Other hammer toe(s) (acquired), right foot M20.41 and Hallux valgus (acquired), right foot M20.[address] [address] 09/13/2024 Lane Arellano Tinea unguium B35.1 ; Pain in right toe(s) M79.674 ; Pain in left toe(s) M79.675 ; Unspecified atherosclerosis of [place] arteries of extremities, bilateral legs I70.203 ; Other hammer toe(s) (acquired), left foot M20.42 ; Other hammer toe(s) (acquired), right foot M20.41 and Hallux valgus (acquired), right foot M20.[address] [address] 12/10/2024 Karla Miles Pain in right toe(s) M79.674 ; Onychomycosis B35.1 and Pain in left toe(s) M79.675 Assessments Encounter Date Diagnosis (ICD Code) Assessment Notes Treatment Notes Treatment Clinical Notes Section Notes 03/05/2024 Tinea unguium (ICD-10 - B35.1) 03/05/2024 Pain in right toe(s) (ICD-10 - M79.674) 06/04/2024 Tinea unguium (ICD-10 - B35.1) 09/13/2024 Tinea unguium (ICD-10 - B35.1) 09/13/2024 Pain in right toe(s) (ICD-10 - M79.674) 12/10/2024 Pain in right toe(s) (ICD-10 - M79.674) 12/10/2024 Onychomycosis (ICD-10 - B35.1) 09/13/2024 Pain in left toe(s) (ICD-10 - M79.675) 06/04/2024 Pain in right toe(s) (ICD-10 - M79.674) 03/05/2024 Pain in left toe(s) (ICD-10 - M79.675) 03/05/2024 Unspecified atherosclerosis of [place] arteries of extremities, bilateral legs (ICD-10 - I70.203) 06/04/2024 Pain in left toe(s) (ICD-10 - M79.675) 09/13/2024 Unspecified atherosclerosis of [place] arteries of extremities, bilateral legs (ICD-10 - I70.203) 12/10/2024 Pain in left toe(s) (ICD-10 - M79.675) 09/13/2024 Other hammer toe(s) (acquired), left foot (ICD-10 - M20.42) 06/04/2024 Unspecified atherosclerosis of [place] arteries of extremities, bilateral legs (ICD-10 - I70.203) 03/05/2024 Other hammer toe(s) (acquired), left foot (ICD-10 - M20.42) 03/05/2024 Other hammer toe(s) (acquired), right foot (ICD-10 - M20.41) 06/04/2024 Other hammer toe(s) (acquired), left foot (ICD-10 - M20.42) 09/13/2024 Other hammer toe(s) (acquired), right foot (ICD-10 - M20.41) 09/13/2024 Hallux valgus (acquired), right foot (ICD-10 - M20.11) 06/04/2024 Other hammer toe(s) (acquired), right foot (ICD-10 - M20.41) 03/05/2024 Hallux valgus (acquired), right foot (ICD-10 - M20.11) 06/04/2024 Hallux valgus (acquired), right foot (ICD-10 - M20.11) Plan Of Treatment Pending Test Test Name Order Date X ray : Foot, left 3V 01/26/2012 X ray : Foot, left 3V 07/07/2022 X ray : Foot, right 3V 07/07/2022 37975-XGGPURM NAIL, 6 OR MORE 12/10/2024 21468-XOQJMDZ NAIL, 6 OR MORE 02/01/2018 55692-KHKYOOB NAIL, 6 OR MORE 10/16/2018 16366-YBIAJPR NAIL, 6 OR MORE 07/05/2018 82638-DYJFUGS NAIL, -5 08/31/2017 52726-HQEYIJS NAIL, -11/23/2017 35005-RJHQDQW NAIL, -06/05/2015 33549-TNXLVQN NAIL, -10/06/2015 12041-XDZKTKR NAIL, -03/10/2016 21778-BGNBZPL NAIL, -07/07/2016 90956-ZNCMYRS NAIL, -11/01/2016 27613-SMBCTQK NAIL, -02/21/2017 85816-OSPQEFQ NAIL, -05/23/2017 25617-Zyfx Destruction, 11-2705/23/2017 65433-Aeaq Destruction, 11-2708/12/2017 55535-Batd Destruction, -02/21/2017 26295-Jlxy Destruction, -14 11/01/2016 94496-Hgou Destruction, -14 07/07/2016 32919-Vlpi Destruction, -14 03/10/2016 76951-Dfdx Destruction, -14 10/06/2015 39465-Rcxu Destruction, -14 06/05/2015 81366-Mgmz Destruction, -14 11/23/2017 25344-Uamx Destruction, 14 08/31/2017 87121-Evlh Destruction, 14 02/01/2018 62262-Ibav Destruction, -14 05/03/2018 00584-Qekl Destruction, -14 07/05/2018 29050-Xcjv Destruction, -14 10/16/2018 26247-Koau Destruction, 11-2703/20/2020 70565- Debride <25 sq cm 01/26/2012 51421- Debride <25 sq cm 02/24/2012 21067- Debride <25 sq cm 05/10/2012 22694- Debride <25 sq cm 12/10/2021 75822-BDHATRJ SKIN/TISSUE 07/07/2022 98619 I&D ABSCESS- SIMPLE,SINGLE 022 41671-HMYA SKIN LESIONS, OVER 4 08/04/20 62169-RETQ SKIN LESIONS, 2 TO 4 12/10/19 72623-CTTK SKIN LESIONS, 2 TO 4 11/26/19 39052-BEVD SKIN LESIONS, 2 TO 4 03/11/20 14450-FZWU SKIN LESIONS, 2 TO 4 06/10/20 18797-CEFW SKIN LESIONS, 2 TO 4 09/09/20 04278- Removal of Foreign Body, Subcut 0 06/10/2021 08999- Nail Unit Biopsy 05/03/2018 Next Appt Details Provider Name:Karla Walker hector, 04/01/2025 03:15:00 PM, [address] [place], [address], Insurance Providers Payer Name Payer Address Payer Phone Subscriber Number Group Number Insured Name Patient Relationship to Insured Coverage Start Date Coverage End Date Medicare National Govt Sv[employer] [address] [place] [address] [id number] Suzan Lindo Self - patient is the insured 5 [employer]) [address] [place] [address] [id number] Suzan Lindo Self - patient is the insured Medical (General) History Medical History History ICD Code thyroid disorder Parkinsons disease Surgical History Surgery Date(Month/Year) left hip surgery - fx [facility] 01/01/2019 cataracts 04/2019, 05/2019 L Hand Surgery 08/2022 Hospitalization History Reason Date(Month/Year)
--- OUTSIDE RECORDS SUMMARY | 2025-01-21 14:10 | XMS_ITS ---
Author Organization [facility] Address [address] [place] [address] Care Team Providers Care Director Of Player Personnel Name Role Phone Omar Siu MD Primary Care Provider Karla Urias Unavailable [phone] Unavailable [phone] Allergies No Known Allergies REASON FOR VISIT Painful nail(s) aggrevated by shoes and causing difficulty standing/walking. Medications Medication SIG (Take, Route, Frequency, Duration) Notes Start Date End Date Status Vitamin B12 100 MCG 1 tablet Orally Once a day Active Selegiline HCl 5 MG 1 tablet with breakfast and lunch Orally Twice a day for 30 day(s) Active Levothyroxine Sodium 75 MCG 1 tablet every morning on an empty stomach Orally Once a day for 30 day(s) Active Inhaler Decongestant Active Carbidopa-Levodopa 25-100 MG 1.5tablet Oral Three times a day Active Rytary 61.25-245 MG Oral for 30 Active Vitamin D Active Selegiline Not-Takin g Doxycycline Hyclate 100 MG 1 capsule Orally Once a day for 10 day(s) temp 3 or 4 left 03/16/2022 Not-Taking Memantine HCl ER 7 MG Oral for 30 Not-Taking Social History Tobacco Use: Social History Observation [...] Are you an other tobacco user? No Vital Signs Height 5 ft 3 in in 09/13/2024 Weight 118 lbs 09/13/2024 BMI 20.9 kg/m2 09/13/2024 Encounters Encounter Location Date Provider Diagnosis [facility] [place] [address] [place] [address] 09/13/2024 Lane Arellano Tinea unguium B35.1 ; Pain in right toe(s) M79.674 ; Pain in left toe(s) M79.675 ; Unspecified atherosclerosis of [place] arteries of extremities, bilateral legs I70.203 ; Other hammer toe(s) (acquired), left foot M20.42 ; Other hammer toe(s) (acquired), right foot M20.41 and Hallux valgus (acquired), right foot M20.11 Assessments Encounter Date Diagnosis (ICD Code) Assessment Notes Treatment Notes Treatment Clinical Notes Section Notes 09/13/2024 Tinea unguium (ICD-10 - B35.1) 09/13/2024 Pain in right toe(s) (ICD-10 - M79.674) 09/13/2024 Pain in left toe(s) (ICD-10 - M79.675) 09/13/2024 Unspecified atherosclerosis of eagle arteries of extremities, bilateral legs (ICD-10 - I70.203) 09/13/2024 Other hammer toe(s) (acquired), left foot (ICD-10 - M20.42) 09/13/2024 Other hammer toe(s) (acquired), right foot (ICD-10 - M20.41) 09/13/2024 Hallux valgus (acquired), right foot (ICD-10 - M20.11) Plan Of Treatment Next Appt Details Follow Up: 3 Months, Reason: Provider Name:Karla young, 04/01/2025 03:15:00 PM, [address] [place] [address], [phone], Procedure Notes * Category Sub-Category Detail Notes Debride Nail 6-10 Nail debridement Nail debridem ent performed extensively to reduce/remove overall nail length and girth, subungual debris, and necrotic tissue, by manual and electrical means with use of a nail nipper and/or dremel, to more viable healthy nail plate or bed tissue 6-10. Silver nitrate used for any petechial bleeding as necessary. Patient chooses, no pharmaceutical tx (10964) Progress Notes * Suzan LINDO NDOB:[birth year] (84 yo F)Acc No.[id number]:09/13/2024 Progress Note Patient:?Suzan Lindo N Provider:?Lane Arellano DPM :1940???Age:84 Y???Sex:Female D ate:09/13/2024 Address:[address] [place] [address] [place] [phone] Pcp:Omar Siu MD Subjective: * Chief Complaints: * ???Painful nail(s) aggrevate d by shoes and causing difficulty standing/walking. * HPI: ???Painful Nails:?Pt States Last PCP Visit:?Date:?04/14/2024 ???Toe pain:?Nature:?aching, tenderness, stiffness.?Location:?Great toe, 2nd toe, B/L feet.?Duration:?several months.?Onset/Cause:?gradual.?Course:?improved.?Aggravated by:?shoes, any pressure.?Treatments:?bracing/splinting/padding and pt uses wheelchair with limited walking.? * ROS:?General/Constitutional:?Nausea?denies.?Vomiting?denies.?Hunger Thirst?denies.?Loss appetite?denies.?Chills?denies.?Fatigue?denies.?Fever?denies.?Night Sweats?denies.?Unexplained weight loss?denies.?Unexplained weight gain?denies.?HEENTM:?Dentures?denies.?Dizziness?denies.?Glasses/contacts?admits.?Retinopathy?de nies.?Blurred/double vision?denies.?TMJ?denies.?Discharge/drainage?denies.?Implants?denies.?Sore throat?denies.?Dental implants?denies.?Hard of hearing ?denies.?Difficulty chewing/swallowing/speaking?denies.?Nose bleeds?denies.?Sore mouth?denies.?Respiratory:?On Oxygen?denies.?Pneumonia/pleurisy?denies.?Bronchitis?denies.?Emphysema?denies.?C oughing?denies.?Cough blood?denies.?Shortness of breath?denies.?Wheezing?denies.?Cardiovascular:?Pacemaker?denies.?MVP?denies.?WPW?denies.?CHF?denies.?Heart attack?denies.?Septal defect?denies.?Rapid beat?denies.?Chest pain ?denies.?Atrial Fib.?denies.?Murmur/Palpitations?denies.?Gastrointestinal:?Hemorrhoids?denies.?Stomach/Abdominal pain?denies.?Dark blood stool?denies.?Irritable bowel ?denies.?Constipation?denies.?Diarrhea?denies.?Hematology:?Swelling?denies.?Clots?denies.?Varicose Veins?denies.?Bruising?denies.?Bleeding problem?denies.?Genitourinary:?Blood urine?denies.?Frequent/Painfu/urination/bladder control?denies.?Kidney stones?denies.?Infection (UTI)?denies.?Nephropathy?denies.?sex trans dis (STD)?denies.?Prostate?denies.?Musculoskeletal:?Hammertoes?denies.?Bunions?denies.?Back Pain?denies.?Muscle Cramps/ Resting?admits.?Muscle cramps / walking?denies.?Generalized aches and pains?denies.?Weakness?denies.?Integ.:?Steve?denies.?Scars?denies.?Corns/calluses?admits.?Ingrown nails?denies.?Painful nails?denies.?Open Sores?denies.?Rashes?denies.?Neurologic:?Difficulty sleeping?denies.?Brain disorder?denies.?Numbness?denies.?Balance trouble?denies.?Confusion?denies.?Fainting/blackouts?denies.?Tingling?denies.?Tr emors?denies.? * Medical History:? * Surgical History:?left hip s urgery - fx [facility] 01/01/2019cataracts 04/2019, 05/2019L Hand Surgery 08/2022 * Hospitalization/Major Diagno stic Procedure:?Denies Past Hospitalization * Family History:?Mother: dece ased, diagnosed with Family history of arthritis.?Father: .? * Social History:?Tobacco Use:?Tobacco Use/Smoking?Are you a:?current smoker ?How often do you smoke cigarettes??some days, but not every day ?How many cigarettes a day do you smoke??5 or less ?Tobacco use other than smoking?Are you an other tobacco user??No ???Drugs/Alcohol:?Drugs?Have you used drugs other than those for medical reasons in the past 12 months??No ?Alcohol Screen?Did you have a drink containing alcohol in the past year??Yes ?How often did you have a drink containing alcohol in the past year??2 to 4 times a month (2 points) ?Points?2 ?Interpretation?Negative ???Miscellaneous:?Caffeine: yes, frequency:, 1-2 cups per day. ?Children: yes, 2. ?Exercise: yes, housework, walking in Driveway. ?Marital status: . 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 ?Occupational exposure: none. * Medications:?TakingCarbidopa -Levodopa 25-100 MG Tablet 1.5tablet Oral Three times a dayInhaler Decongestant Levothyroxine Sodium 75 MCG Tablet 1 tablet every morning on an empty stomach Orally Once a daySelegiline HCl 5 MG Tablet 1 tablet with breakfast and lunch Orally Twice a dayVitamin B12 100 MCG Tablet 1 tablet Orally Once a dayVitamin D Rytary 61.25-245 MG Capsule Extended Release Oral Taking Carbidopa-Levodopa 25-100 MG Tablet 1.5tablet Oral Three times a dayTaking Inhaler Decongestant Taking Levothyroxine Sodium 75 MCG Tablet 1 tablet every morning on an empty stomach Orally Once a dayTaking Selegiline HCl 5 MG Tablet 1 tablet with breakfast and lunch Orally Twice a dayTaking Vitamin B12 100 MCG Tablet 1 tablet Orally Once a dayTaking Vitamin D Taking Rytary 61.25-245 MG Capsule Extended Release Oral Not-Taking/PRNMemantine HCl ER 7 MG Capsule Extended Release 24 Hour Oral Doxycycline Hyclate 100 MG Capsule 1 capsule Orally Once a day, Notes: temp 3 or 4 leftSelegiline Medication List reviewed and reconciled with the patientNot- Taking/PRN Memantine HCl ER 7 MG Capsule Extended Release 24 Hour Oral Not-Taking/PRN Doxycycline Hyclate 100 MG Capsule 1 capsule Orally Once a day, Notes: temp 3 or 4 leftNot-Taking/PRN Selegiline Medication List reviewed and reconciled with the patient * Allergies:?N.K.D.A.yes[Aller gies Verified] Objective: * Vitals:?Ht: 5 ft 3 in, Wt: 1 18, BMI: 20.9, Shoe size: 8.5, Wt-k.52 kg. * Examination: ???Nails: ?NAILS are:?Elongated, overgrown, dystrophic, lytic, greater than 3mm thick, discolored and friable with crumbly malodorous subungual debris, with pain on palpation, TA, T3, T4, T5, T9, T7 .?Dermatologic: ?SKIN FINDINGS:? Skin exam reveals Keratotic lesion(s) located at, SUB MTH (s), 1, B/L, Plantar, TA, T2, T7, medial T1 pipj.?ULCER:? LOCATION--plantar t6 pipj, is well healed.?Vascular: ?DP PULSES(B):? 0/4, LEFT, 1/4, RIGHT.?PT PULSES(B):? 0/4, LEFT, 1/4, RIGHT.?CAPILLARY FILL TIME:? delayed, all digits, B/L.?TROPHIC CONDITION-TEXTURE/ELASTICITY/TURGOR/HAIR GROWTH(B):? decreased, B/L.?TEMPERTURE GRADIENT(C):? decreased, cool to cold, proximal to distal, B/L.?General Examination: ?GENERAL APPEARANCE:?Reveals a pleasant, alert, well nourished, well developed, well hydrated individual, who demonstrates proper attention to hygene/body habitus, and is in no acute distress.?ORIENTED:?person, place, and time.?Orthopedic: ?MUSCLE STRENGTH:?5/5 all groups in a symmetrical fashion , B/L.?BUNION:? Medially prominent 1st MPJ, RIGHT, Lateral tracking 1st MPJ nonreducable.?DIGITAL DEFORMITIES:? Digital contracture, PIPJ, 2-5 B/L, incompl- reducable with WB, or to push-up test, no over, nor underlapping.? Assessment: * Assessment: 1.?Tinea unguium - B35.1 (Pr imary)?2.?Pain in right toe(s) - M79.674?3.?Pain in left toe(s) - M79.675?4.?Unspecified atherosclerosis of eagle arteries of extremities, bilateral legs - I70.203?5.?Other hammer toe(s) (acquired), left foot - M20.42?6. Other hammer toe(s) (acquired), right foot - M20.41?7.?Hallux valgus (acquired), right foot - M20.11? Plan: * Treatment: * Procedures:?Debride Nail 6-10:?Nail debridement?Nail debridement performed extensively to reduce/remove overall nail length and girth, subungual debris, and necrotic tissue, by manual and electrical means with use of a nail nipper and/or dremel, to more viable healthy nail plate or bed tissue 6-10. Silver nitrate used for any petechial bleeding as necessary. Patient chooses, no pharmaceutical tx ([id number]).? * Procedure Codes:?11066 DEBRI DE NAIL, 6 OR MORE, Modifiers: XS * Follow Up:?3 Months * Images: * Sign off status: Completed true * Provider:?Lane Arellano DPM Date:? 024 Generated for Lindy dalton/Elisha/Eva on:?01/21/2025 02:10 PM EDT History and Physical Notes * HPI (History of Present Illness) Category Sub-Category Detail Notes Category Not es Toe pain Nature: aching, tenderness, stiffnes s Location: Great toe, 2nd toe, B/L feet Duration: several months Onset/Cause: gradual Course: improved Aggravated by: shoes, any pressure Treatments: bracing/splinting/pa dding and pt uses wheelchair with limited walking Painful Nails Pt States Last PCP Visit: Date:: 04/14/2024 Examination Category Sub-Category Detail Notes Category Not es Dermatologic SKIN FINDINGS: Skin exam reveal s Keratotic lesion(s) located at, SUB MTH (s), 1, B/L, Plantar, TA, T2, T7, medial T1 pipj ULCER: LOCATION--plantar t6 pipj, is well healed Orthopedic BUNION: Medially promine nt 1st MPJ, RIGHT, Lateral tracking 1st MPJ nonreducable DIGITAL DEFORMITIES: Digital contracture , PIPJ, 2-5 B/L, incompl-reducable with WB, or to push-up test, no over, nor underlapping MUSCLE STRENGTH: 5/5 all groups in a symmetrical fashion , B/L General Examination GENERAL APPEARANCE: Reveals a pleasant, alert, well nourished, well developed, well hydrated individual, who demonstrates proper attention to hygene/body habitus, and is in no acute distress ORIENTED: person, place, and t adrian Vascular DP PULSES (B): 0/4, LEFT, 1/4, RIGHT PT PULSES (B): 0/4, LEFT, 1/4, RIGH T CAPILLARY FILL TIME: delayed, all digits , B/L TEMPERTURE GRADIENT (C): decreased, cool to cold, proximal to distal, B/L TROPHIC CONDITION-TEXTURE/ELASTICITY/TURGOR/HAIR GROWTH (B): decreased, B/L Nails NAILS are: Elongated, overg rown, dystrophic, lytic, greater than 3mm thick, discolored and friable with crumbly malodorous subungual debris, with pain on palpation, TA, T3, T4, T5, T9, T7
--- OUTSIDE RECORDS SUMMARY | 2025-01-21 14:10 | XMS_ITS | Continuity of Care Document ---
Author Organization [facility] Alhaji Mayo Noel lt Address [address] [place] [address]- Care Team Providers Care Percher Name Role Phone Omar Siu MD Primary Care Physician [phone] Encounter [facility] Date[place]s): 01/03/25 - 01/10/25 [facility] Adult [address] [place] [address]- Encounter Diagnosis Left shoulder pain(Discharge Diagnosis) - 01/03/25 Parkinson's disease(Discharge Diagnosis) - 01/03/25 Lewy body dementia(Discharge Diagnosis) - 01/03/25 Hypothyroidism(Discharge Diagnosis) - 01/03/25 Attending Physician: Omar Siu MD Encounter Type: Office Visit Allergies, Adverse Reactions, Alerts Substance Criticality Severity Reaction Reaction Severity Status Fosamax dyspepsia Active Immunizations Given and Recorded Vaccine Date Status Refusal Reason influenza virus vaccine, inactivated 1 09/26/24 Gi rani influenza virus vaccine, inactivated 09/13/23 Radu rded influenza virus vaccine, inactivated 2 09/23/22 Gi rani influenza virus vaccine, inactivated 08/31/21 Radu rded influenza virus vaccine, inactivated 3 08/21/20 Gi rani influenza virus vaccine, inactivated 08/07/19 Radu rded influenza virus vaccine, inactivated 08/23/18 Radu rded influenza virus vaccine, inactivated 09/05/14 Radu rded [id number] bivalent booster vax 09/03/22 Recorded tetanus/diphtheria/pertussis, acel(Tdap) 4 03/05/22 Given SARS-CoV-2 mRNA ([id number]-bzhon) vax 5 03/05/22 Given SARS-CoV-2 (COVID-19) mRNA-1273 vaccine 09/21/21 R ecorded SARS-CoV-2 (COVID-19) mRNA-1273 vaccine 01/11/21 R ecorded SARS-CoV-2 (COVID-19) mRNA-1273 vaccine 12/14/20 R ecorded SARS-CoV-2 (COVID-19) mRNA-1273 vaccine 12/13/20 R ecorded zoster vaccine, inactivated 09/21/19 Recorded zoster vaccine, inactivated 09/20/19 Recorded zoster vaccine, inactivated 07/02/19 Recorded Influenza Virus Vaccine (oldterm) 09/20/19 Recorde d pneumococcal 13-valent vaccine 11/29/17 Recorded pneumococcal 13-valent vaccine 11/14/17 Recorded Zostavax (oldterm) 11/14/13 Recorded tetanus-diphtheria toxoids (Td) 11/14/11 Recorded pneumococcal 23-valent vaccine 11/14/07 Recorded 1Result Comment: [facility]: [id number] Screening checklist reviewed with patient. Negative for any contraindications. 2Result Comment: [facility]-[id number] 3Result Comment: [facility]-[id number] 4Result Comment: upper deltoid 5Result Comment: bottom of deltoid Medications aspirin 81 mg oral delayed release tablet 81 mg, 1, tablet, By Mouth, Daily, Refills 0, Maintenance, 01/03/25 2:11:00 PM EST, Partial fill upon patient request if the prescription is for a schedule II opioid drug. Start Date: 01/03/25 Status: Ordered Repeat number: 1 atorvastatin 40 mg oral tablet 1 tablet = 40 mg, By Mouth, Daily at bedtime, 0 Refills, Maintenance, 01/03/25 2:11:00 PM EST, Partial fill upon patient request if the prescription is for a schedule II opioid drug. Start Date: 01/03/25 Status: Ordered Repeat number: 1 CeleBREX 100 mg oral capsule 1 capsule = 100 mg, By Mouth, Daily, PRN shoulder pain, # 30 capsule, 2 Refills, Maintenance, 01/03/25 2:51:00 PM EST, [facility] # [facility], Partial fill upon patient request if the prescription is fora schedule II opioid drug., 159.7, cm, 01/03/25 14:14:00 EST, Height Start Date: 01/03/25 Status: Ordered Quantity: 30.0 Unit: capsule Repeat number: 3 clopidogrel 75 mg oral tablet 75 mg, 1, tablet, By Mouth, Daily, Refills 0, Maintenance, 01/03/25 2:11:00 PM EST, Partial fill upon patient request if the prescription is for a schedule II opioid drug. Start Date: 01/03/25 Status: Ordered Repeat number: 1 levothyroxine 75 mcg (0.075 mg) oral tablet See Instructions, TAKE ONE TABLET BY MOUTH ONCE DAILY EXCEPT SATURDAYS, # 90 tablet, 1 Refills, Maintenance, 09/27/24 3:01:00 PM EST, [facility], 159.7, cm, 09/26/24 15:00:00 EST, Height Start Date: 09/27/24 Status: Ordered Quantity: 90.0 Unit: tablet Repeat number: 1 lidocaine 4% patch 1 Patch, Topically, Daily, 0 Refills, Maintenance, 01/03/25 2:12:00 PM EST, Partial fill upon patient request if the prescription is for a schedule II opioid drug. Start Date: 01/03/25 Status: Ordered Repeat number: 1 QUEtiapine 25 mg oral tablet 25 mg, 1, tablet, By Mouth, Daily at bedtime, Replaces previous prescription, # 90 tablet, Refills 3, Tot. Refills 3, Maintenance, 01/03/25 2:52:00 PM EST, Route to Pharmacy Electronically, [facility], Partial fill upon patient request if the prescription is for a schedule II opioid drug., 159.7, cm, 01/03/25 14:14:00 EST, Height Start Date: 01/03/25 Status: Ordered Quantity: 90.0 Unit: tablet Repeat number: 4 Rytary 61.25 mg-245 mg oral capsule, extended release See Instructions, Take 1 capsule by mouth 4 times daily, # 120 capsule, 5 Refills, Maintenance, 01/03/25 2:55:00 PM EST, Partial fill upon patient request if the prescription is for a schedule II opioid drug. Start Date: 01/03/25 Status: Ordered Quantity: 120.0 Unit: capsule Repeat number: 6 selegiline 5 mg oral capsule 5 mg, 1, capsule, By Mouth, 2 times a day, # 60 capsule, Refills 0, Maintenance, 12/20/18 8:43:17 AM EST Start Date: 12/20/18 Status: Ordered Quantity: 60.0 Unit: capsule Repeat number: 1 Tylenol Extra Strength 500 mg oral tablet 2 tablet = 1,000 mg, By Mouth, 2 times a day, 0 Refills, Maintenance, 01/03/25 2:13:00 PM EST, Partial fill upon patient request if the prescription is for a schedule II opioid drug. Start Date: 01/03/25 Status: Ordered Repeat number: 1 Vitamin B12 1000 mcg oral tablet 1 tablet = 1,000 mcg, By Mouth, Daily, # 30 tablet, 0 Refills, Maintenance, 06/28/19 10:11:49 AM EDT, [facility] Start Date: 06/28/19 Status: Ordered Quantity: 30.0 Unit: tablet Repeat number: 1 Vitamin C 500 mg oral tablet 1 tablet = 500 mg, By Mouth, Daily, # 30 tablet, 0 Refills, Maintenance, 08/14/24 4:00:00 PM EDT, Tablet, Partial fill upon patient request if the prescription is for a schedule II opioid drug. Start Date: 08/14/24 Status: Ordered Quantity: 30.0 Unit: tablet Repeat number: 1 Vitamin D3 2000 intl units oral capsule 1 capsule = 2,000 International_Units, By Mouth, Daily, # 90 tablet, 3 Refills, Maintenance, 199:06:51 AM EST, [facility] Start Date: 12/21/18 Status: Ordered Quantity: 90.0 Unit: tablet Repeat number: 4 Problem List Condition Confirmation Course Effective Dates Status H ealth Status Informant Aortic stenosis mild echo 1 Confirmed Active Cataract Confirmed Active Cigarette smoker Confirmed Active Vitamin B12 deficiency Confirmed Active Hypothyroidism Confirmed Active Osteoporosis Confirmed Active Parkinson's disease Confirmed Active Post-nasal drip Confirmed Active Vitamin D deficiency Confirmed Active 1mild-moderate by echo 12/2018 Diagnosis Diagnosis Type Effective Dates Health Status Clinical Service Informant Left shoulder pain Discharge Diagnosis 01/03/25 Parkinson's disease Discharge Diagnosis 01/03/25 Lewy body dementia Discharge Diagnosis 01/03/25 Hypothyroidism Discharge Diagnosis 01/03/25 Vital Signs Most recent to oldest [Reference Range]: 1 Height 159.7 cm (01/03/25 2:14 PM) Weight 50 kg (01/03/25 2:14 PM) Body Mass Index [18.5-24.99 kg/m2] 19.6 kg/m2 (01/03/25 2:14 PM) Blood Pressure [90-138/55-84 mm Hg] 120/ 70mm Hg (01/03/25 2:14 PM) Blood pressure sites Arm, right (01/03/25 2:14 PM) Weight Obtained Via Standing scale (01/03/25 2:14 PM) Social History Social History Type Response Tobacco Other: 1/5 pack. Sex Sex Representation Female (finding) Note * Delia Ham: PERFORM Event Display: Patient Education/Instruction Authored Date: Ambulatory Adult Visit Summary [facility] Adult [facility] [address] [place] [address] Name: LISA AVILES : 1940?? Visit: 01/03/2025 14:07?? Ambulatory Visit Instructions ?? Your Care Team Primary Care Provider Omar Siu MD? This Visit Provider Omar Siu MD Your Diagnosis Left shoulder pain Parkinson's disease Lewy body dementia Hypothyroidism Vitals Signs Systolic Blood Pressure: 120 mm Hg Height: 159.7 cm Diastolic Blood Pressure: 70 mm Hg Weight: 50 kg ?? Body Mass Index: 19.6 kg/m2 ?? Body surface area: 1.49 What to do next Scheduled Follow-Up Appointments March. 2024 2:30 PM EDT ?? With: Omar Siu MD Where: [facility] [address] [place] [address]- Status: Pending Future Orders CBC w/ Differential - Routine, Once, 02/23/25 16:05:00 EDT, Future Order, [facility], Blood?? Comprehensive Metabolic Panel - Routine, Once, 02/23/25 16:05:00 EDT, Future Order, [facility], Blood?? Lipid Panel Non Fasting - Routine, Once, 02/23/25 16:05:00 EDT, Future Order, [facility], Blood?? Direct LDL - Routine, Once, 09/26/24 16:05:00 EST, Order for Today, [facility], Blood?? Vitamin D 25 Hydroxy Level - Routine, Once, 09/26/24 16:05:00 EST, Order for Today, [facility], Blood?? Vitamin B12 Level - Routine, Once, 09/26/24 16:06:00 EST, Order for Today, [facility], Blood?? Folate Level - Routine, Once, 09/26/24 16:06:00 EST, Order for Today, [facility], Blood?? Medications The list below reflects the information in our records and provided by you today along with any changes made during this visit. Please continue your medications until treatment is completed or stopped by your provider. If this is different from the information you have or there are other questions,please contact the prescribing provider. What How Much When Instructions New Celecoxib (CeleBREX 100 mg oral capsule) 1 capsule Oral Daily as needed for shoulder pain Refills: 2 Pickup at [facility] Changed Carbidopa-Levodopa (Rytary 61.25 mg-245 mg oral capsule, extended release) See instructions Take 1 capsule by mouth 4 times daily ?? Changed Quetiapine (QUEtiapine 25 mg oral tablet) 1 tab(s) Oral Daily at Bedtime Replaces previous prescription ?? Pickup at [facility] Unchanged Acetaminophen (Tylenol Extra Strength 500 mg oral tablet) 2 tab(s) Oral Twice a day Unchanged Ascorbic Acid (Vitamin C 500 mg oral tablet) 1 tab(s) Oral Daily Unchanged Aspirin (aspirin 81 mg oral delayed release tablet) 1 tab(s) Oral Daily Unchanged Atorvastatin (atorvastatin 40 mg oral tablet) 1 tab(s) Oral Daily at Bedtime Unchanged Cholecalciferol (Vitamin D3 2000 intl units oral capsule) 1 capsule Oral Daily Unchanged Clopidogrel (clopidogrel 75 mg oral tablet) 1 tab(s) Oral Daily Unchanged Cyanocobalamin (Vitamin B12 1000 mcg oral tablet) 1 tab(s) Oral Daily Unchanged Levothyroxine (levothyroxine 75 mcg (0.075 mg) oral tablet) See instructions TAKE ONE TABLET BY MOUTH ONCE DAILY EXCEPT SATURDAYS ?? Unchanged Lidocaine Topical (lidocaine 4% patch) 1 Patch Topically Daily Unchanged Selegiline (selegiline 5 mg oral capsule) 1 capsule Oral Twice a day Pharmacy Information [facility] # [facility]: [address], [place] [id number] [phone] Medications and Immunizations Administered Medications Given During Visit No medications given during this visit.?? Allergies (NKA means No Known Allergies) Fosamax??(dyspepsia) Common Emergency Awareness Tips IS IT A STROKE? Act FAST and Check for these signs: FACE Does the face look uneven? ARM Does one arm drift down? SPEECH Does their speech sound strange? TIME Call at any sign of stroke ?? Heart Attack Signs Chest discomfort: Most heart attacks involve discomfort in the center of the chest and lasts more than a few minutes, or goes away and comes back. It can feel like uncomfortable pressure, squeezing, fullness or pain. Discomfort in upper body: Symptoms can include pain or discomfort in one or both arms, back, neck, jaw or stomach. Shortness of breath: With or without discomfort. Other signs: Breaking out in a cold sweat, nausea, or lightheaded. Remember, MINUTES DO MATTER. If you experience any of these heart attack warning signs, call to get immediate medical attention! ?? Smoking can increase your chances of developing chronic health problems and can cause harmful effects to other family members in your house. If you smoke, you are strongly encouraged to quit. Please call [facility] at [phone] or [phone] ([phone]) ([phone] or log in to [email or web address] for referrals to smoking cessation programs. ?? The National Suicide Prevention Hotline is available 06/06 if you or someone you know needs to find a reason to keep living. By calling 9-873-356-Chirpme (2421) you'll be connected to a skilled, trained counselor at a crisis center in your area. [facility] Portal You can view and manage your care through the patient portal or by using a health care will of your choosing. [employer] is a website that allows you to securely view your medical information including your hospital discharge summary, office visit summaries, medications and follow-up visits. You can also request appointments, renew medications, and request access to your medical information using a health care will of your choosing, or just ask a question. You can enroll at [email or web address] or register during your next office visit. [facility], in keeping with [facility] guidance, no longer requires face masks for staff, patientsor visitors in most situations. Similiar to time spent indoors at other locations, there is the chance that you were exposed to repiratory viruses during your time with us (such as flu or COVID-19). If you develop symptoms concerning for a viral respiratory infection, please seek testing (and treatment if indicated) from your medical provider or home test kit. ?? Disclaimer: The information provided is of a general nature and is intended to be used in conjunction with the recommendations and advice of your health care practitioner. Every effort has been made to ensure that the information provided is accurate and complete at the time it is provided to you however, as your needs change, or, as new information becomes available, different or additional instructions may be required. ?? If you have questions, please consult with your primary care provider or pharmacist, as appropriate. This information is not intended to serve as substitution for assessment and evaluation by a qualified health care provider. If you do not have a primary care provider, you may find a [facility] provider by calling [facility] at [phone]. Patient Care team information Care Team Personnel Name: Kenia Monroy RN Position: [facility] RN Member Role: Primary Care Nurse Name: Rita Peterson RN Position: [facility] Onco RN Member Role: Primary Care Nurse Name: Omar Siu MD Position: [facility] Physician - Primary Care Member Role: PCP Address: [address] [place] [address] Telecom: Name: Tracie Howell RN Position: [facility] NADIA Nurse Member Role: Primary Care Nurse Name: Maya Siddiqi Position: [facility] [place] Licensed Chemical Spray Technician Member Role: Heating And Cooling Technician Care Team Related Persons Name: JAHAIRA AVILES Insurance Providers Guarantor name: LISA AVILES Health Plan Information #: 1 Payer: MEDICARE PART B OUTPT Member Number: [id number] Policy Number: NA Group Number: NA Health Plan Information #: 2 Payer: MEDICARE PART B OUTPT Member Number: [id number] Policy Number: NA Group Number: NA
--- OUTSIDE RECORDS SUMMARY | 2025-01-21 14:10 | XMS_ITS | Data Portability ---
Author Organization [facility] [employer] Address 1966, [address] [place] [phone] Care Team Providers Care Academic Advising Director Name Role Phone RAMA RIVERA Primary Care Provider Assessment Encounter Date Assessment Date Assessment LastModified by Organization Details LastModified Time 10/10/2024 10/10/2024 Assessment: Pt with diagnosis of dementia for enrollment into GUIDE program See table below for explanation of stages Current Dementia Stage (FAST): 6. For stages 6 and 7 specify: e [email or web address] Not available 10/10/2024 12:55:10 10/17/2024 10/17/2024 MONTHLY BILLING NOTE FOR GUIDE Current Tier Needs have been identified and care planning done as indicated below. Weekly huddle performed with team including Dr. Haas A copy of this care plan has been forwarded to the patient? s Primary Care Not available 10/17/2024 11:41:07 11/28/2024 11/28/2024 Goal #1: Measurable goal: Decrease falls, accidents, injuries or prevent choking or aspiration of food or fluids Tasks assigned to caregivers: Place child proof locks for any areas with sharp knives or scissors, cleaning chemicals and all cigarettes and lighters. If Bill is unable to remember to keep them locked up you may need to have only care givers access these items. Ensure the knobs on the stove are off when caregivers are not there. Keep floors clutter free and frequently used items, drinks and snacks close to Suzan. Each visit from Caregiver will wash feet and put on new silk brusher socks for Suzan to keep on 24/7. Hang reminder signs for Suzan about wearing shoes and socks and for Bill on how to cut food up smaller than his pinkie nail. Replace or alter threshold to make it easier to transition from room to room. Tasks assigned to [facility] Staff: Arrange for home safety evaluation. [facility] that they do not allow smoking unless family or caregiver is present and keep those items locked up between uses, possibly even from Suraj. Goal #2: Measurable goal: Improve ZBI stress and burden score for Suraj with education on dementia and respite care. Tasks assigned to caregivers: Follow instructions for a safe environment. Continue with plan to support Suzan in the home with 24 hour support when Suraj is out for surgery. Inquire with [facility] if they can provide any in home support with [employer]). Tasks assigned to [facility] Staff: Send written information to Suraj because he is [place] and cannot communicate on the phone or during Zoom call. Goal #4: Measurable goal: Suzan will have a Healthcare Directive and MOLST on file in case of an emergency. Tasks for caregivers: Talk wtih Suraj about upcoming surgery and ensuring that paperwork is completed in case something happens with Suraj's recovery or general health. Tasks for [facility] Staff: Provide forms for family to discuss prior to Dec appointment with Suraj. [email or web address] Not available 11/28/2024 16:53:38 Plan of Treatment Reminders Order Date Submit Date Provider Last Modified By Organization Details Last Modified Time Details Appointments None record ed. Lab None record ed. Referral None record ed. Procedures None record ed. Surgeries None record ed. Imaging None record ed. Medication Orders None record ed. Patient Targets Encounter Date Encounter Id Patient Goals Patient Target Last Modified By Organization Details Last Modified Time Improve caregiver stress and burden with respite services and education. Improve Suzan's mood with increased independence around the home, especially with walking. Decrease falls and prevent choking or aspiration of food or drinks. [email or web address] Not available 10/19/2024 09:56:58 Patient Instructions Encounter Date Encounter Id Patient Instructions Last Modified By Organization Details Last Modified Time 10/10/2024 [id number] DEMENTIA STAGING USING FAST STAGE DESCRIPTION 1 (Normal aging) No Deficits 2 (Possible Mild cognitive impairment) Subjective functional difficulties 3 (Mild Cognitive Impairment) Interferes with complex tasks, work becomes difficult 4 (Mild Dementia) IADLS (bill paying, cooking, traveling) become difficult 5 (moderate dementia) Need help selecting proper clothing 6 (moderately Severe) a - Needs help dressing b - Need help bathing c- Need help toileting d - Urinary incontinence e - Fecal incontinence 7 (Severe Dementia) a - Speaks 5-6 words during day b - Speaks only 1 word clearly c- Can no longer walk d - Can no longer sit up e - Can no longer smile f - Can no longer hold head up [email or web address] Not available 10/10/2024 12:05:57 10/17/2024 [id number] Keep floors clutter free and frequently used items, drinks and snacks close to Suzan. Hang signs Suzan- do not take off your socks- Kortney will help you, and Suzan- slip your shoes on before you walk. Cut up meats to smaller than pinkie nail. Alter threshold to make it easier to transition from room to room. Each visit from Kortney wash feet and put on new silk brusher socks. Machinery Erector contacting OT to ask about chair that will fit through doorways and anti-roll back system. Keep floors clutter free, lock up or hide items if dangerous such as knives if not able to use safely. Adjust theshold to be easier to walk and roll over. Meet with son and figure out a two week schedule to assist if respite is not in place by Bill's surgery as a back up. Care Navigato will inquire about services through [facility] and through GUIDE. [email or web address] Not available 10/19/2024 09:59:35 Reason for Referral None Reported. Problems Name Problem SNOMED Code Status Onset Date Resolution Date Notes Provider Name and Address Organization Details Recorded Time Parkinson 's disease 94277502 Active 024 RONALDO HAAS MD [address] [facility] [address], [place], [address] , [facility] 10/21/2024 19:02:21 Problem Notes None recorded. Medical [...] SNOMED-CT Code Diagnosis ICD10 Code Diagnosis Note [id number] RONALDO HAAS MD [facility] [address],[place] [place] [address] 10/10/2024 10:45:00 11/26/2024 11:26:04 Dementia 50347197 G31.83 F03.90 {{I attest that this the patient meets the National [place] on Aging-[place]zh e[place]? s Associati on diagnostic guidelines for dementia and/or the DSM-5 diagnostic guidelines for major neurocogni tive disorder I attest that i have received a written report of a documented dementia diagnosis* No, I cannot attest to a diagnosis of dementia}} Chronic di sease - care arrangement [id number] Z76.89 Goal #{{1* 2 3 4 5 6 7 8} }: Domain: {{Safety* Behavioral Needs manager talent management Education/ Support Ca re coordinati on/Referra l Care Transition Medicaiti on reconcilia tion/manag ement Resp ite Advanc ed Care Planning O ther (Specify)} } Descriptio n: Needs a home safety evaluation Specifiall y caregiver asks about walk in shower Measurable goal: decrease falls T[facility]: arrange for home safety eval. [employer] for walk in shower Goal #{{1 2* 3 4 5 6 7 8} }: Domain: {{Safety B ehavioral Needs manager talent management Education/ Support* C are coordinati on/Referra l Care Transition Medicaiti on reconcilia tion/manag ement Resp ite Advanc ed Care Planning O ther (Specify)} } Descriptio n: Bill () is overwhelme d and needs education and support Measurable goal: Improve ZBI Tasks assigned to [facility] Staff: Meet with Bill and assess needs Goal #{{1 2 3* 4 5 6 7 8} }: Domain: {{Safety B ehavioral Needs manager talent management Education/ Support Ca re coordinati on/Referra l Care Transition Medicaiti on reconcilia tion/manag ement Resp ite Advanc ed Care Planning O ther (Specify)* }} Descriptio n: Suzan has physical limitation s as well as cognitive. She desires more independen ce around the house Measurable goal: improve mood. Increase independen ce, jose j with walking Tasks [facility] to [facility]: See if there are other ways to support PT for Suzan. Consider any adaptive aids that will allow her more independen ce Goal #{{1 2 3 4 * 5 6 7 8} }: Domain: {{Safety B ehavioral Needs manager talent management Education/ Support Ca re coordinati on/Referra l Care Transition Medicaiti on reconcilia tion/manag ement Resp ite* Advan alicja Care Planning O ther (Specify)} } Descriptio n: Need for respite while Suraj has surgery. Likely has VA and other benefits Measurable goal: improve Caregiver burden Tasks [facility] to [facility]:Assi st with finding respite that Family can use through GUIDE as well as [facility] Advance care planning 71 [id number] Z71.89 Advance care planning is {{Discusse d Reviewed Declined* }} POSLST has been {{complete d at this visit comp leted previously and on file defer red*}} [id number] RONALDO HAAS MD [facility] [address] [facility] [place] [address] 10/17/2024 11:40:54 11/26/2024 11:27:47 Dementia [id number] F02.80 PT seen for GUIDE dementia Care Management Chronic di sease - care arrangement [id number] Z76.89 Goal #1: Domain: Safety Descriptio n: Needs a home safety evaluation , forgets walker, forgets to lock transport chair and put on shoes. Can't put silk brusher socks on daily. Hx of two major falls with injury. Noted coughing when eating meats in regular size pieces recently, had ST before, declines ST eval now. DC'd OT one month ago. A large threshold is a fall hazard between rooms. Measurable goal: Decrease falls, prevent choking or aspiration of food or fluids Tasks assigned to caregiver: Keep floors clutter free and frequently used items, drinks and snacks close to Suzan. Hang signs Suzan- do not take off your socks- Kortney will help you, and Suzan- slip your shoes on before you walk. Cut up meats to smaller than pinkie nail. Alter threshold to make it easier to transition from room to room. Each visit from Kortney wash feet and put on new silk brusher socks. Fix threshold to be easier to roll or walk over. Tasks assigned to [facility] Staff: Arrange for home safety eval, contact OT for recommenda tions and ask about a Medicare covered wheelchair with small width and adding an anti-roll back device. Provide info about choking risk and eating with Parkinsons . Goal #2: Domain: Caregiver Education/ Support Descriptio n: Suraj () is overwhelme d and needs education and support Measurable goal: Improve ZBI Tasks assigned to [facility] Staff: Meet with Suraj and assess needs. Goal #3: Domain: Other (Specify) Descriptio n: Suzan has physical limitation s as well as cognitive. She desires more independen ce around the house. Measurable goal: improve mood. Increase independen ce, jose j. with walking Task for caregiver: Keep floors clutter free, lock up or hide items if dangerous such as knives if not able to use safely. Tasks assigned to [facility] Staff: See if there are other ways to support PT for Suzan. Consider any adaptive aids that will allow her more independen ce. Goal #4: Domain: Respite Descriptio n: Need for respite while Suraj has surgery. Likely has VA and other benefits. Measurable goal: improve Caregiver burden Tasks assigned to caregiver: Meet with son and figure out a two week schedule to assist if respite is not in place by Suraj's surgery as a back up, Tasks assigned to [facility] Staff:Assi st with finding respite that Family can use through GUIDE as well as VA before 11/01/24. [id number] [facility]AS MD [facility] [address] [place] [address] 11/28/2024 12:19:27 12/10/2024 18:34:25 Dementia [id number] F03.90 [id number] RONALDO HAAS MD [facility] [address] [place] [address] 12/26/2024 12:28:35 12/28/2024 14:17:41 Dementia [id number] F03.90 Goal #1:Measura ble goal: Decrease falls, accidents, injuries or prevent choking or aspiration of food or fluidsTask s assigned to caregivers : None at this time.Tasks assigned to [facility] Staff: Check with Carola Thomas and offer any support or insight into Suzan's impulsive actions to prevent injuries or falls if needed.Goa l #2:Measura ble goal: Improve ZBI stress and burden score for Suraj with education on dementia and respite care.Tasks assigned to caregivers : Follow instructio ns for a safe environmen t. Inquire with [facility] if they can provide any in home support with veterans benefits.T asks assigned to [facility]: Send written informatio n to Suraj because he is [place] and cannot communicat e on the phone or during Zoom call. Find education with captions to help him understand the progressio n and what will be changing for Suzan.Go al #4:Measura ble goal: Suzan will have a Healthcare Directive and MOLST on file in case of an emergency. Tasks for caregivers : Talk wtih Suraj about upcoming surgery and ensuring that paperwork is completed in case something happens with Suraj's recovery or general health.Tas ks for [facility] Staff: Talk with Carola Thomas about ensuring this is on file for Suzan and that POA paperwork is completed prior to his surgery to take care of Suzan in case anything happens to him. Health Concerns Section Related Observation LastModified by Organization Detai ls LastModified Time None Recorded Concern Status LastModified by Organization Details LastModified Time None Recorded Advance Directives Directive None Recorded Payers Encounter Date Sequence Insurance Name Policy Number Policy Dodd Covered Member ID Dodd Member ID Guarantor Name 10/10/2024 1 [place] Suzan Lindo [id number] Suzan Belgica 10/17/2024 1 [place] Suzan Lindo [id number] Suzan Lindo 11/28/2024 1 [place] Suzan Lindo [id number] 6 Suzan Lindo 12/26/2024 1 [place] Suzan Lindo [id number] 6 Suzan Garciatuliohector Notes Date Note Type Note Provider Name and Address Organization Details Recorded Time 10/10/2024 text/html Guide Comprehens mason AssessmentReported bypatient.Indicate additional diagnosesParkinson's, limited use of L hand and right leg due to recent fracture, Ustep walker Medication safetyCaregiver organinzes or helps with medications; Rytari 4 x a day and selegine was wiped out. Bill occasionally forgets to give them Home safetyLives at home - Home safety to be scheduled Additional safety screeningno evidence abuse / neglect; No longer drives;fall(s) in the past year 2+ slif out of wheelchair;Concerns with cooking/kitchen;Concern s getting out in emergency;Concerns in bathroom(washes dishes and soapy floor);Concerns with PWD going out by self; Incontinent Substance usecurrent tobacco use(1 pack per 3 days); No alcohol Pt presents for comprehensive assessment for enrollment in GUIDE. Pt lives {{at home* in SLF other(specify)}} Pt has primary caregiver {{yes* no}}. If yes, name and relationship to patient: Jacobo, Pt {{has the following* has no}} concerns: needs knee surgery Pt {{has* has not}} had workup for dementia (describe if workup done): Pt has previously been diagnosed with dementia {{yes* no}} If yes, indicate type if known:LBD RONALDO HAAS MD [address] [facility] [address], [address], [facility] 10/10/2024 12:59:26 10/17/2024 text/html GUIDE Note for ( 11/06): {{Patient only caregiver only Patient and caregiver Patient and caregivers#}} were seen this month. The following domains were addressed: Medical history or med changes: {{Y* N}} History of fx right hip 1 1/2 years ago, then another fx in Jul 2024. Behavioral Symptoms: {{Y* N}} Mild dementia symptoms with forgetfulness and with impulse control. Hang signs up. Safety: {{Y* N}} Doesn't always remember to use the walker. Limited use of her left hand due to Parkinson's contracted. Dressing challenging. Needs reminders to lock the brakes on her transfer chair. Did OT recommend a special wheelchair that would be narrow enough for doorways? Is barefoot often and runs over her own feet. Has two purple toes now. Has Sketchers to put her feet into them. Hard surface phu. Uses socks with grippers but doesn't always put them on. Recommend that she wears them all the time and have reminders around the home to keep them on all the time. Recommend that Kortney wash feet and change socks 3 times a week. Suraj is not very mobile to assist. Speech Therapy did a swallow eval months ago but said no recommendations. Occasionally she has trouble swallowing, witnessed her having trouble with meats twice in the past two weeks and Kortney is only there three times a week. Recommended that Suraj cut up any meats in pieces that are smaller then Suraj's pinkie nail. Deng declines a Speech Therapy eval. Caregiver will post a sign reminding Suraj to cut meats up smaller than his pinkie nail. Drinks ensure as a supplement and eats a lot of eggs, recommended tuna, canned meats, yogurt, ham/tuna/egg salad. No interest in the basement steps and floors are clear. Threshold needs adjustment from the kitchen to living room and Kortney looking into it. Falls since last visit: {{Y N*}}. If yes how many: {{}} Caregiver Well Being: {{Y* N}} Advance Care Planning: {{Y* N}} Advanced Directives are current. Needs MOLST. They have had a nurse come out from the [facility] to assess the couple and they have not gotten back to them on further directions if they would qualify for Medicaid. Isolation/Loneliness scale {{ Y#}} Another couple comes over to play cards, good social life, phone calls. Suraj is now limited with Other: The following topics were researched: OT options for a wheelchair, anti-lock/rollback device on it, [facility] resources, eating small bites with Parkinsons' Correspondence this month included: Email and phone calls RONALDO HAAS MD [address] [facility] [address], [place], [address], [place] [facility] 10/21/2024 19:03:54 11/28/2024 text/html Method of Check in: {{phone [...] get a scale for regular weights and RICKEY said they can do that in the kitchen with something for her to hold onto. No medication changes or doctor's appointments. New info with talking meeting with RICKEY this time. Suzan has a cold and they contact pharmacist for interactions with her Parkinson's Medication. She can take Desilum for that for 3 days max. RICKEY mentioned that Suzan smokes, has dropped a cigarette once in the past and Machinery Erector identifies her has a high risk in [...] Suzan forgets that she smokes and then Suraj will ask her if she needs any [...] getting call backs from because of tht. Machinery Erector recommended following up with Suraj's doctor about cognitive changes. Suraj has his surgery on 01/08 and they have overnight care set up with unlicensed aid who comes over and is paid out of pocket. They recommended rehab for Suraj but he declined and wants to get back home after one or two days. [place] is working with him for assistance benefits at home, no word from them if Suzan can qualify for any assistance from the [facility]. Suzan needs Healthcare Directives and MOLST. Needs a doctor to say that they need to lock up the lighters and cigarettes. Caregiver does not think that Suzan would go to an early childhood education worker day program. Interested in respite care- Machinery Erector will find partner in the area to utilize GUIDE funding. Unable to find a wheelchair that fits the layout of the bathroom to use an anti-rollback device per OT. RONALDO HAAS MD [address] [facility] [address], [place], [address], [facility] 12/03/2024 20:33:45 12/26/2024 text/html Machinery Erector: Tier: {{First 6 months - low complexity dyad First 6 months - mod complexity dyad* First 6 months - high complexity dyad First 6 months - low complexity individual First 6 months - mod/high complexity individual After 6 months - low complexity dyad After 6 months - mod complexity dyad After 6 months - high complexity dyad After 6 months - low complexity individual After 6 months - mod/high complexity individual}} Method of Check in: {{phone call Video Visit* In person}} Date of check in: December 26, 2024 Total time spent this month (in minutes): {{ 45#}} Summary of topics discussed: Tuesday night Suzan was not very hungry, Tuesday night Suraj said that she was not acting usual and . She is at [facility]. Suraj's surgery is 01/08 for his knee and he is relieved that Suzan is in rehab so that she is taken care of while she is . She has good days and bad days, gets confused or sees people. She is using her transport chair and was out of her room talking with people. Family and Suraj are torn about whether they see Suzan going home. Discussed feelings of guilt, offered support and offered support group. Machinery Erector will follow up with Carola MENDOSA and see how we can assist. Suzan's son, Elmira's is having a hard time with all of this. He refuses help and Machinery Erector encourged Elmira to just support him and listen, offer encouragement for him to take care of himself during this time too with good nutrition, hydration and taking time each day for something he enjoys. Suraj could use some additional education about the progression of the disease and that may help him with his decisions. Over the past month, the needs outlined above were identified, and care planning was completed. RONALDO HAAS MD [address] [facility] [address], [place], [address], [facility] 01/01/2025 18:01:26 OBGyn Episode No OBEpisode recorded.
--- OUTSIDE RECORDS SUMMARY | 2025-01-21 14:10 | XMS_ITS | Continuity of Care Document ---
Author Organization [facility] Formerly [facility], [facility] Address [address] [place] [address] Care Team Providers Care Offset Assistant Press Operator Name Role Phone RAMA RIVERA Primary Care Provider [phone] Assessment No assessment recorded. Plan of Treatment [...] Organization Details Recorded Time Parkinson 's disease [id number] Active 024 RONALDO HAAS MD [address], [place], [address] , [facility] 10/21/2024 19:02:21 Problem Notes None recorded. [...] Code Diagnosis Note 9868 [facility]ALDO [facility]AS MD [facility] [address] [place] [address] 11/28/2024 12:19:27 12/10/2024 18:34:25 Dementia [id number] F03.90 31736 RONALDO HAAS MD [facility] [address] [place] [address] 12/26/2024 12:28:35 12/28/2024 14:17:41 Dementia [id number] F03.90 Goal #1:Measura ble goal: Decrease falls, accidents, injuries or prevent choking or aspiration of food or fluidsTask s assigned to caregivers : None at this time.Tasks assigned to [facility] Staff: Check with Carola Thomas and offer any support or insight into Suzan's impulsive actions to prevent injuries or falls if needed.Gokay l #2:Measura ble goal: Improve ZBI stress and burden score for Suraj with education on dementia and respite care.Tasks assigned to caregivers : Follow instructio ns for a safe environmen t. Inquire with [facility] if they can provide any in home support with veterans benefits.[facility]: Send written informatio n to Suraj because he is [place] and cannot communicat e on the phone [...] Member ID Dodd Member ID Guarantor Name 12/26/2024 1 [place] Suzan Lindo [id number] Suzan Lindo Notes Date Note Type Note Provider Name and Address Organization Details Recorded Time 12/26/2024 text/html Disc Inspector: Tier: {{First 6 months - low complexity [...] acting usual and . She is at [facility] in [facility] [place]. Suraj's surgery is 01/08 for his knee [...] guilt, offered support and offered support group. Disc Inspector will follow up with [facility] and see how we can assist. Suzan's son, Elmira's is having a hard time with all of this. He refuses help and Disc Inspector encourged Elmira to just support him and [...] care planning was completed. RONALDO HAAS MD [address], [place], [address], [facility] - [facility] 01/01/2025 18:01:26 OBGyn Episode No OBEpisode recorded.
--- OUTSIDE RECORDS SUMMARY | 2025-01-21 14:10 | XMS_ITS | Continuity of Care Document ---
Author Organization [facility] Alhaji Mayo Noel lt Address [address] [place] [address]- Care Team Providers Care Oil Process Stillman Name Role Phone Omar Siu MD Primary Care Physician [phone] Encounter [facility] Date(s): 12/18/24 - 01/17/25 [facility] Alhaji Atkinsley Adult [address] [place] [address]- Encounter Type: Triage Allergies, Adverse Reactions, Alerts Substance Criticality Severity [...] influenza virus vaccine, inactivated 09/05/14 Radu rded [id number] bivalent booster vax 09/03/22 Recorded tetanus/diphtheria/pertussis, acel(Tdap) 4 03/05/22 Given SARS-CoV-2 mRNA (loxqclj-nhwj-oxacd) vax 5 03/05/22 Given SARS-CoV-2 (COVID-19) mRNA-1273 [...] pneumococcal 23-valent vaccine 11/14/07 Recorded 1Result Comment: [facility]: [id number] Screening checklist reviewed with patient. Negative for any contraindications. 2Result Comment: [facility]-[id number] 3Result Comment: [facility]-[id number] 4Result Comment: upper deltoid 5Result Comment: bottom [...] 1 Refills, Maintenance, 09/27/24 3:01:00 PM EST, [facility] [address] [facility], 159.7, cm, 09/26/24 [...] 2:52:00 PM EST, Route to Pharmacy Electronically, 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 Sex Sex Representation Female (finding) Patient Care team information Care Team Personnel Name: Kenia Monroy RN Position: [facility] RN Member Role: Primary Care Nurse Name: Rita Peterson RN Position: [facility] Onco RN Member Role: Primary Care Nurse Name: Omar Siu MD Position: [facility] Physician - Primary Care Member Role: PCP Address: [address] [place] [address]- Telecom: Name: Tracie Howell RN Position: [facility] NADIA Nurse Member Role: Primary Care Nurse Name: Maya Siddiqi Position: [facility] [place] Auto Hiker Member Role: Railroad Crane Operator Care Team Related Persons Name: JAHAIRA AVILES Insurance Providers Guarantor name: LISA STEFAN Health Plan Information #: 1 Payer: MEDICARE PART B OUTPT Member Number: NA Policy Number: NA Group Number: NA
--- OUTSIDE RECORDS SUMMARY | 2025-01-21 14:10 | XMS_ITS | Continuity of Care Document ---
Author Organization [facility] Alhaji Mayo Noel lt Address [address] [place] [address]- Care Team Providers Care Bottom Saw Operator Name Role Phone Salbador RAMIRES, Omar Reno Primary Care Physician En[place] [facility] Date(s): 12/05/24 - 01/04/25 [facility] Alhaji Atkinsley Adult [address] [place] [address]- Encounter Type: Triage Allergies, Adverse Reactions, Alerts [...] influenza virus vaccine, inactivated 09/05/14 Radu rded [id number] bivalent booster vax 09/03/22 Recorded tetanus/diphtheria/pertussis, acel(Tdap) 4 03/05/22 Given SARS-CoV-2 mRNA (wfogoaf-vnas-mopzq) vax 5 03/05/22 Given SARS-CoV-2 (COVID-19) mRNA-1273 [...] pneumococcal 23-valent vaccine 11/14/07 Recorded 1Result Comment: [facility]: [id number] Screening checklist reviewed with patient. Negative for any contraindications. 2Result Comment: [facility]-[id number] 3Result Comment: [facility]-[id number] 4Result Comment: upper deltoid 5Result Comment: bottom [...] 1 Refills, Maintenance, 09/27/24 3:01:00 PM EST, [facility], 159.7, cm, 09/26/24 15:00:00 [...] 2:52:00 PM EST, Route to Pharmacy Electronically, [facility], Partial fill upon patient [...] 0 Refills, Maintenance, 06/28/19 10:11:49 AM EDT, [facility] Start Date: 06/28/19 Status: [...] tablet, 3 Refills, Maintenance, 199:06:51 AM EST, [facility] Start Date: 12/21/18 Status: [...] Team Personnel Name: Kenia Monroy RN Position: [facility] RN Member Role: Primary Care Nurse Name: Rita Peterson RN Position: [facility] Onco RN Member Role: Primary Care Nurse Name: Omar Siu MD Position: [facility] Physician - Primary Care Member Role: PCP Address: [address] [place] [address]- Telecom: Name: Tracie Howell RN Position: [facility] NADIA Nurse Member Role: Primary Care Nurse Name: Maya Siddiqi Position: [facility] [place] Hospital Attendant Member Role: Mixing Pan Tender Care Team Related Persons Name: JAHAIRA AVILES Insurance Providers Guarantor name: LIAS STEFAN Health Plan Information #: 1 Payer: MEDICARE PART B OUTPT Member Number: NA Policy Number: NA Group Number: NA
--- OUTSIDE RECORDS SUMMARY | 2025-01-21 14:10 | XMS_ITS | Data Portability ---
Author Organization [facility], Main Office Address [address] 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 Plan of Treatment Reminders Order Date Submit Date Provider Last Modified By Organization Details Last Modified Time Details Appointments None recorded. Lab None recorded. Referral None recorded. Procedures None recorded. Surgeries None recorded. Imaging None recorded. Medication Orders oxycodone 5 mg tablet 2022 023 [facility] [address] [address], [address], 3 19:43:25 Patient TargetsNo targets recorded. Patient InstructionsNo instructions recorded. Reason for Referral None Reported. Problems Name Problem SNOMED Code Status Onset Date Resolution Date Notes Provider Name and Address Organization Details Recorded Time Falls 730667133 Active 2022 BIBIANA ALBA NP [address] [facility], [address], [place], [address], [facility] 3 11:36:12 Fracture of neck of femur 0141687 Active 2022 BIBIANA ALBA NP [address] [facility], [address], [place], [address], [facility] 3 11:36:32 Depressive disorder 43568350 Active 2022 BIBIANA ALBA NP [address] [facility], [address], [place], [address], [facility] 3 11:36:55 Anemia 566209926 Active 2022 BIBIANA ALBA NP [address] [facility], [address], [place], [address], [facility] 3 11:49:04 Cigarette smoker 53584937 Active 2022 Elly Phillips MD [address] [facility], [address], [place], [address], [facility] 3 20:00:08 Mild alcohol dependence 333459355 Active 2022 Elly Phillips MD [address] [facility], [address], [place], [address], [facility] 3 20:00:46 Hallucinat ions 1590290 Active 2022 with delusions BIBIANA ALBA NP [address] [facility], [facility] [address], [place], [address], [facility] 3 12:21:13 Fracture of neck of femur 9841477 Active 2018 [facility] 12:04:24 Parkinson' s disease 28078237 Active 2018 [facility] 12:04:34 Vitamin D deficiency 71786664 Active 2018 [facility] 9 12:04:42 Hypothyroi dism 72580740 Active 2018 [facility] 12:04:48 Problem Notes None recorded. [...] mm[Hg] 78 mm[Hg] BIBIANA ALBA NP [address] [facility], [address], [place], [address], [facility] 3 13:32:14 Date Recorded Body height Heart rate Respiratory rate Body temperature Oxygen saturation Oxygen saturation in Arterial blood by Pulse oximetry Systolic blood pressure Diastolic blood pressure Provider Name and Address Organization Details Last Updated DateTime 3 160.02 cm 80 /min 16 /min 98.1 [degF] 99 % 99 % 127 mm[Hg] 71 mm[Hg] BIBIANA ALBA NP [address] [facility] [address], [place], [address], [facility] 3 10:55:52 Date Recorded Body height Heart rate Respiratory rate Body temperature Oxygen saturation Oxygen saturation in Arterial blood by Pulse oximetry Systolic blood pressure Diastolic blood pressure Provider Name and Address Organization Details Last Updated DateTime 3 160.02 cm 68 /min 16 /min 98.3 [degF] 98 % 98 % 122 mm[Hg] 58 mm[Hg] Sandra Morse NP [address] [facility] [address], [place], [address], [facility] 3 09:24:44 Date Recorded Body height Body mass index (BMI) Body weight Heart rate Respiratory rate Body temperature Oxygen saturation Oxygen saturation in Arterial blood by Pulse oximetry Systolic blood pressure Diastolic blood pressure Provider Name and Address Organization Details Last Updated DateTime 3 160.02 cm 20.4 kg/m2 31582.1 2 g 67 /min 18 /min 97.9 [degF] 97 % 97 % 128 mm[Hg] 69 mm[Hg] Elly Phillips MD [address] [facility] [address], [place], [address], [facility] 3 17:48:43 Date Recorded Body height Body weight Heart rate Respiratory rate Body temperature Oxygen saturation Oxygen saturation in Arterial blood by Pulse oximetry Systolic blood pressure Diastolic blood pressure Provider Name and Address Organization Details Last Updated DateTime 3 160.02 cm 45592.4 1 g 81 /min 18 /min 98 [degF] 95 % 95 % 123 mm[Hg] 76 mm[Hg] Sandra Morse NP [address] [facility] [address], [place], [address], [facility] 12:39:21 Social History Question Answer Notes LastModified by Organization Details LastModified Time Tobacco Smoking Status Current Some Day Smoker Sandra Morse, PIETRO [address] [facility], [address], [place], [address], [facility] 07/31/2023 10:43:08 Do You Have An [...] 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 Invoked Information not available 08/01/2023 What [...] Time SARS-COV-2 (COVID-19) vaccine, UNSPECIFIED 2 completed [facility] 06/28/2023 13:39:18 SARS-COV-2 (COVID-19) vaccine, UNSPECIFIED 2 completed [facility] 06/28/2023 13:39:28 SARS-COV-2 (COVID-19) vaccine, UNSPECIFIED 1 completed [facility] 06/28/2023 13:40:14 SARS-COV-2 (COVID-19) vaccine, UNSPECIFIED 1 completed [facility] 06/28/2023 13:40:26 SARS-COV-2 (COVID-19) vaccine, UNSPECIFIED 1 completed Uzma Chino [facility] 06/28/2023 13:40:35 Tdap 2 completed [facility] 06/28/2023 13:41:04 zoster recombinant 9 completed [facility] 06/28/2023 13:41:57 zoster recombinant [facility]2023 13:42:05 Pneumococcal conjugate PCV 13 8 completed Uzma Magana [facility] 06/28/2023 13:42:32 zoster live 4 completed Uzma Magana [facility] 06/28/2023 13:42:46 Td(adult) unspecified formulation 2 completed Uzma Magana [facility] 06/28/2023 13:43:12 pneumococcal polysaccharide PPV23 8 completed zUma Magana [facility] 06/28/2023 13:43:28 Influenza, adjuvanted, quadrivalent, PF 3 completed [facility] 12/05/2023 12:23:39 Influenza, adjuvanted, quadrivalent, PF 2 completed Alina Calhoun [facility] 12/29/2023 16:01:49 Past Encounters Encounter ID Performer Location Encounter Start Date Encounter Closed Date Diagnosis/Indication Diagnosis SNOMED-CT Code Diagnosis ICD10 Code Diagnosis Note [id number] Vilma MEJIA [address] [place] [address] 01/05/2019 11:55:50 01/17/2019 12:08:44 Fracture of neck of femur 0224836 S72.002D wbatloveno x x30 d for DVT Pf/u with Dr. Giraldo.PT /OT eval. Parkinson's disease 4904 9000 G20 stable on selegiline , sinemet. Vitamin D deficiency 347 90567 E55.9 stable on supplement ation. Hypothyroidism 16131303 E03.9 [place] [id number] MD MARAI TERESA [address] [place] [address] 01/09/2019 13:32:22 01/17/2019 12:18:12 Fracture of neck of femur 8571491 S72.092D see HPIleft hip fx now s/p nail fixationfo llow ortho recsPT OT eval and treatWBATm onitor for pain control and constipati onlovenox for DVT prophylaxi s Unsteady gait 881899951 R26.81 PT OT eval and treatmonit or fall risk Parkinson's disease 4904 9000 G20 question if contributi ng factor to fallsineme t 25-100 tidmonitor for sx control Hypothyroidism 36185569 E03.8 synthroid 75 mcg qdmonitor tsh prn Anemia due to blood loss 106551103 D50.0 Post [place] [id number] [address] [address] 01/11/2019 11:55:22 01/17/2019 14:34:33 Fracture of neck of femur 6047580 S72.002D wbatloveno x x30 d for DVT Pf/u with Dr. Giraldo.PT /OT eval. Parkinson's disease 4904 9000 G20 stable on selegiline , sinemet. Vitamin D deficiency 347 91480 E55.9 stable on supplement ation. Hypothyroidism 69748533 E03.9 [place] in[place] [id number]ma Penelope [address] [address] 01/17/2019 15:02:30 01/23/2019 08:27:33 Fracture of neck of femur 6764643 S72.002D wbatloveno x x30 d for DVT Pf/u with Dr. Giraldo.PT /OT eval. Parkinson's disease 4904 9000 G20 stable on selegiline , sinemet. Vitamin D deficiency 347 99208 E55.9 stable on supplement ation. Hypothyroidism 31655299 E03.9 [place] ine [id number] [address] [address] 01/25/2019 10:07:54 01/30/2019 15:28:44 Fracture of neck of femur 8381997 S72.002D wbatloveno x x30 d for DVT Pf/u with Dr. Giraldo.PT /OT eval. Parkinson's disease 4904 9000 G20 stable on selegiline , sinemet. Vitamin D deficiency 347 65452 E55.9 stable on supplement ation. Hypothyroidism 74804143 E03.9 stable [place] levothyrox ine [id number] Vilma MEJIA [address] [place] [address] 01/30/2019 15:21:38 02/01/2019 15:29:35 Fracture of neck of femur 8521411 S72.002D wbatloveno x x30 d for DVT [...] selegiline , sinemet. Vitamin D deficiency 347 77991 E55.9 stable on supplement ation. Hypothyroidism 08182409 E03.9 [place] ine [id number] Vilma HUSAINE [address] [place] [address] 02/02/2019 12:24:21 02/06/2019 11:14:37 Fracture of neck of femur 5279355 S72.002D wbatloveno x x30 d for DVT P completed now.f/u with Dr. Giraldo 02/14 Parkinson's disease 4904 9000 G20 stable on selegiline , sinemet. Vitamin D deficiency 347 72036 E55.9 stable on supplement ation. Hypothyroidism 34038461 E03.9 stable [place]othy[place] in[place] [id number] [facility] Tang [facility] [address] [place] [address] 02/04/2019 10:08:57 02/06/2019 11:18:25 Fracture of neck of femur 6046819 S72.092D see HPIleft hip fx now s/p nail fixationam bulating with walkerclea red for discharge to f/u with ortho Unsteady gait 252543889 R26.81 monitor fall risk Anemia due to blood loss 201203875 D50.0 Post op anemiamoni tor cbc and need for tx Parkinson's disease 4904 9000 G20 sinemet 25-100 tidmonitor for sx control Hypothyroidism 17692832 E03.8 synthroid 75 mcg qdcontinue [id number] PIETRO CORTEZ [address] [place], [place] [address] [address] 06/15/2023 10:18:24 06/17/2023 14:59:16 Falls 041119076 R29.6 PT OT eval and treatfall precaution sfrequent safety checks Fracture o f neck of femur 5244585 S72.001A tylenol 325 mg tidlovenox 40 mg daily till seen by ortho 06/22 Parkinson's disease 4904 9000 G20 rytary 23.75/95 mg er 4 caps in amrytary 23.75/95mg er 3 caps am and pmselegili ne 5 mg bidmonitor for tremors Hypothyroidism 50979444 E03.8 levothyrox ine 75 mcg daily Vitamin D deficiency 347 95781 E55.9 D3 1000 daily Depressive disorder 3548 9007 F32.A seroquel 12.5 mg bid and 25 mg hspsych prnAIMs 0 Anemia 569177946 D64.9 iron dailyvit c 500 dailyB 12 dailymonit or labs [id number] MD MARIA TERESA Sauer ROBERTO [address] [place] [address] [place] [address] 06/16/2023 16:25:01 06/21/2023 15:38:57 Falls 347767090 R29.6 As above.Kevin est issue is poor safety awareness. Fracture o f neck of femur 3598476 S72.044D Continue APAP 650 mg TIDContinu e [...] mg BID and 25 mg qhs. Hypothyroidism 87874191 E03.8 TSH 5.06Contin ue levothyrox ine 75 mcg qdRecheck TSH with FT4 with next labs. Vitamin D deficiency 347 75920 E56.8 Continue vitamin D3 1000 IU qdMonitor as outpt. Anemia 380321640 D64.89 Multifacto rial.Jerome nue FeSO4 324 mg qd with vitamin C 500 mg qd for absorption , and vitamin B12 1000 mcg qd.Monitor labs Cigarette smoker 0618883 7 F17.210 Intermitte nt smoker, no need for nicotine replacemen t at this time.Unabl e to discuss with pt today due to agitation. Mild alcoh ol dependence 160984405 F10.20 Reportedly drinks fairly regularly, but not to excess.But could be contributi ng to fall risk.Jerome nue to discuss with pt and . [id number] PIETRO CORTEZ [address] [place] [address] 06/17/2023 12:19:24 06/21/2023 16:17:57 Parkinson's disease 16748292 G20 rytary 23.75/95 mg er 4 caps in amrytary 23.75/95mg er 3 caps am and pmselegili ne 5 mg bidmonitor for tremors Hallucinations 1291301 R 44.3 nuplazid 34 mg dailystop seroquel when this is started [id number] PIETRO CORTEZ [address] [place] [address] 06/20/2023 12:39:37 06/22/2023 16:56:32 Parkinson's disease 09054042 G20 rytary 23.75/95 mg er 4 caps in amrytary 23.75/95mg er 3 caps am and pmselegili ne 5 mg bidmonitor for tremors Hallucinations 1273418 R 44.3 nuplazid 34 mg dailystop seroquel when this is startedmee t pt where she is and assure her [id number] PIETRO CORTEZ ROBERTO [address] [place] [address] 07/11/2023 13:31:32 07/13/2023 14:09:19 Falls 234044244 R29.6 PT OT eval and treatfall precaution sfrequent safety checks Fracture o f neck of femur 9667962 S72.001A tylenol 325 mg tidlovenox 40 mg daily till seen by ortho 8/9 Parkinson's disease 4904 9000 G20 rytary 23.75/95 mg er 4 caps in amrytary 23.75/95mg er 3 caps am and pmselegili ne 5 mg bidmonitor for tremors Hypothyroidism 65560994 E03.8 levothyrox ine 75 mcg daily Vitamin D deficiency 347 62509 E55.9 D3 1000 daily Depressive disorder 3548 9007 F32.A seroquel stoppedNup lazid 34 mg dailypsych prnAIMs 0 Anemia 733573157 D64.9 iron dailyvit c 500 dailyB 12 dailymonit or labs Hallucinations 8280935 R 44.3 resolved with nuplazidnu plazid 34 mg dailystop seroquel when this is startedmee t pt where she is and assure her [id number] PIETRO CORTEZ [address] [place] [address] 07/22/2023 10:55:18 07/29/2023 10:05:46 Falls 557404294 R29.6 PT OT eval and treatfall precaution sfrequent safety checks Fracture o f neck of femur 9609838 S72.001A tylenol 325 mg tidlovenox 40 mg daily till seen by ortho 8/9 Parkinson's disease 4904 9000 G20 rytary 23.75/95 mg er 4 caps in amrytary 23.75/95mg er 3 caps am and pmselegili ne 5 mg bidmonitor for tremors Hypothyroidism 82973047 E03.8 levothyrox ine 75 mcg daily Vitamin D deficiency 347 30051 E55.9 D3 1000 daily Depressive disorder 3548 9007 F32.A seroquel stoppedNup lazid 34 mg dailypsych prnAIMs 0 Anemia 173344583 D64.9 iron dailyvit c 500 dailyB 12 dailymonit or labs Hallucinations 3264508 R 44.3 resolved with nuplazidnu plazid 34 mg dailystop seroquel when this is startedmee t pt where she is and assure her [id number] Sandra Morse NP [facility] [address] [facility] [address] 07/31/2023 09:23:45 08/02/2023 09:21:10 Falls 970161947 R29.6 PT OT eval and treatfall precaution sfrequent safety checkshigh fall risk Fracture o f neck of femur 1697250 S72.001A tylenol 650mg tidrefuses other pain medication [...] ne 5 mg bidmonitor for tremors Hypothyroidism 32098939 E03.8 levothyrox ine 75 mcg dailyTSH x 1 to monitor Vitamin D deficiency 347 40147 E55.9 D3 2000 mecobalami n 1000mcg po daily Depressive disorder 3548 9007 F32.A seroquel 12.5 mg bid and 25 mg hsnuplazid 34 mg po dailypsych prnAIMs 0 Anemia 726872657 D64.9 iron dailyvit c 500 dailyB 12 dailymonit or labs Hallucinations 7057582 R 44.3 resolved in hospital per pt? ecoli ua culturemon itor Mild alcoh ol dependence 211349459 F10.20 states drinks 5 beers per day, ;[facility] s/s of withdrawal s noted Cigarette smoker 6435137 7 F17.210 states only smokes 2 cigarettes per monthno nrt, refusesmon itor and support quitting [id number] Elly Phillips MD [address] [place] [address] 08/01/2023 17:39:18 08/03/2023 06:57:14 Fracture of neck of femur 4001511 S72.044D Continue APAP 650 mg TIDContinu e lovenox 40 mg sq qd for 6 wks post-opNee ds PT/OT for strengthen ing, balance, gait training, safety and function.C ontinue fall precaution s.Monitor for safety.F/U with ortho as planned Falls 322937226 R29.6 As above.Kevin est issue is poor [...] el was stopped when Nuplazid started. Hypothyroidism 19720022 E03.8 TSH 4.75, no FT4 done, but had been 5.06 in 05/2023.Con tinue levothyrox ine 75 mcg qdRecheck TSH with FT4 with next labs. Vitamin D deficiency 347 90321 E56.8 Continue vitamin D3 1000 IU qdMonitor as outpt. Anemia 749653086 D64.89 Multifacto rial. Macrocytic RBCs could indicate EtOH component. Continue FeSO4 324 mg qd with vitamin C 500 mg qd for absorption , and vitamin B12 1000 mcg qd.Monitor labs Cigarette smoker 0909447 7 F17.210 Intermitte nt smoker, no need for nicotine replacemen t at this time.She is not interested in quitting.C ontinue to encourage cessation. Mild alcoh ol dependence 324040037 F10.20 Reportedly drinks fairly regularly, but not to excess.But could be contributi ng to fall risk.Jerome nue to discuss with pt and . [id number] Sandra Morse NP [address] [address] 08/04/2023 12:38:17 08/18/2023 16:18:30 Fracture of neck of femur 7943972 S72.044D Continue start oxycodone 5 mg po q am and q 6 hours prn painAPAP 650 mg TIDlovenox 40 mg sq qd for 6 wks post-op(42 days total)Need s PT/OT for strengthen ing, balance, gait training, safety and function.C ontinue fall precaution s.Monitor for safety.F/U with ortho as planned Falls 034935483 R29.6 As above.Kevin est issue is poor safety awareness. Unclear if pt can continue to live at home, will need to be assessed while here. Parkinson's disease 1929 9000 G20 With dementia and hallucinat ions, can also be quite clear at times.Cont inueRytary 23.75/95 mg ER 4 caps qAM and 3 caps in afternoon and qhs'selegi line 5 mg BIDNuplazi d 34 mg qd.F/U with neuro as planned.Ps ych consult prn.Seroqu el was stopped when Nuplazid started. Hypothyroidism 86676028 E03.8 TSH 4.75, no FT4 done, but had been 5.06 in 05/2023.Con tinue levothyrox ine 75 mcg qdRecheck TSH with FT4 with next labs. Vitamin D deficiency 347 02023 E56.8 Continuevi tamin D3 1000 IU qdMonitor as outpt. Anemia 866976142 D64.89 Multifacto rial.Jerome nue FeSO4 324 mg [...] Dodd Member ID Guarantor Name 07/11/2023 2 [facility] [id number] Suzan Lindo [id number] Suzan Lindo 07/11/2023 1 [place] [employer] Suzan Lindo [id number] Suzan Lindo 07/22/2023 2 [facility] [id number] Suzan Lindo [id number] Suzan Lindo 07/22/2023 1 [place] [employer] Suzan Lindo [id number] Suzan Lindo 07/31/2023 2 [facility] [id number] Suzan Lindo [id number] Suzan Lindo 07/31/2023 1 [place] [employer] Suzan Lindo [id number] Suzan Lindo 08/01/2023 2 [facility] [id number] Suzan Garciatuliohector [id number] Suzan Garciatuliohector 08/01/2023 1 [place] [facility] Suzan Lindo [id number] Suzan Garciatuliohector 08/04/2023 2 [facility] [id number] Suzan Lindo [id number] Suzan Lindo 08/04/2023 1 [place] [facility] Suzan Lindo [id number] Suzan Garciatuliohector Notes Date Note Type Note Provider Name and Address Organization Details Recorded Time 07/11/2023 text/html seen today for 3 0 day routine rounding visit-82 yof admitted to for rehab after presenting to the hospital after a fall with fractured right femur, she underwent ORIF and went to [facility] 05/31. shantelle out 06/11 CAOx2 sitting up in wheelchair, lungs clear, ambulating with PT and walker, her activity has increased, she is tolerating the Nuplazid and no further psychotic or delusional episodes noted or reported BIBIANA ALBA, PIETRO [address] [facility], [address], [place], [address], [facility] 07/11/2023 13:37:18 07/22/2023 text/html seen today for dishcarge summary-82 yof admitted to for rehab after presenting to the hospital after a fall with fractured right femur, she underwent ORIF and went to [facility] 05/31. shantelle out 06/11. CAOx2 sitting up in wheelchair, lungs clear, ambulating with PT and walker, she did the stairs with supervision, her activity has increased, she is tolerating the Nuplazid and no further psychotic or delusional episodes noted or reported BIBIANA ALBA, PIETRO [address] [facility], [address], [place], [address], [facility] 07/22/2023 10:58:17 07/31/2023 text/html Pt is seen for a n initial visit today. Patient admitted to from [facility] from 07/22-07/29/23 for ORIF of right femur [...] nutrition short term. Sandra Morse, PIETRO [address] [facility], [address], [place], [address], [facility] 07/31/2023 10:51:12 08/01/2023 text/html This is an [...] but couldn't. She was brought to the [facility] ED on the night of 07/22. ED [...] frequent falls, and HLD. Elly Phillips MD [address] [place] [address], [address], [place], [address], [facility] 08/01/2023 20:00:12 08/04/2023 text/html Pt is seen for a n acute visit today. Her PMH includes Parkinson's disease with dementia, s/p right femur fx in 05/2023 and refx in 07/2023, hypothyroidism, vitamin D deficiency, mild , cigarette smoker, OP, alcohol use-moderate, frequent falls, and HLD. Patient admitted to from [facility] from 07/22-07/29/23 for ORIF of right femur [...] s/p ORIF. She was brought to the [facility] ED on the night of 07/22 s/p [...] and some delusions. She was transferred to [facility] for further rehab, and possible LTC on [...] nutrition short term. Sandra Morse, PIETRO [address] [facility], [address], [place], [address], [facility] 08/17/2023 18:33:47 OBGyn Episode No OBEpisode recorded.
--- OUTSIDE RECORDS SUMMARY | 2025-01-21 14:10 | XMS_ITS ---
[facility] Organization [facility] Address [address] [place] [address] Care Team Providers Care Optimization Analyst Name Role Phone Omar Siu MD Primary Care Provider Karla Urias Unavailable [phone] Lane Arellano Unavailable [phone] Allergies No Known Allergies REASON FOR VISIT Painful nail(s) aggrevated by shoes and causing difficulty standing/walking. Medications Medication SIG (Take, Route, Frequency, Duration) Notes Start Date End Date Status Vitamin D Active Selegiline Not-Takin g Doxycycline Hyclate 100 MG 1 capsule Orally Once a day for 10 day(s) temp 3 or 4 left 03/16/2022 Not-Taking Memantine HCl ER 7 MG Oral for 30 Active Rytary 61.25-245 MG Oral for 30 Active Vitamin B12 100 MCG 1 tablet Orally Once a day Active Selegiline HCl 5 MG 1 tablet with breakfast and lunch Orally Twice a day for 30 day(s) Active Levothyroxine Sodium 75 MCG 1 tablet every morning on an empty stomach Orally Once a day for 30 day(s) Active Inhaler Decongestant Active Carbidopa-Levodopa 25-100 MG 1.5tablet Oral Three times a day Active Social History Tobacco Use: Social History Observation [...] Signs Height 5 ft 3 in in 06/04/2024 Weight 118 lbs 06/04/2024 BMI 20.90 kg/m2 06/04/2024 Blood pressure systolic 120 mm Hg 06/04/20 24 Blood pressure diastolic 80 mm Hg 024 Encounters Encounter Location Date Provider Diagnosis [facility] [place] [address] [place] [address] 06/04/2024 [address] Arellano Tinea unguium B35.1 ; Pain in right toe(s) M79.674 ; Pain in left toe(s) M79.675 ; Unspecified atherosclerosis of [place] arteries of extremities, bilateral legs I70.203 ; Other hammer toe(s) (acquired), left foot M20.42 ; Other hammer toe(s) (acquired), right foot M20.41 and Hallux valgus (acquired), right foot M20.11 Assessments Encounter Date Diagnosis (ICD Code) Assessment Notes Treatment Notes Treatment Clinical Notes Section Notes 06/04/2024 Tinea unguium (ICD-10 - B35.1) 06/04/2024 Pain in right toe(s) (ICD-10 - M79.674) 06/04/2024 Pain in left toe(s) (ICD-10 - M79.675) 06/04/2024 Unspecified atherosclerosis of [place] arteries of extremities, bilateral legs (ICD-10 - I70.203) 06/04/2024 Other hammer toe(s) (acquired), left foot (ICD-10 - M20.42) 06/04/2024 Other hammer toe(s) (acquired), right foot (ICD-10 - M20.41) 06/04/2024 Hallux valgus (acquired), right foot (ICD-10 - M20.11) Plan Of Treatment Next Appt Details Follow Up: 2 Months, 3 Month s, Reason: Provider Name:Karla young, 04/01/2025 03:15:00 PM, [address] [place], [phone], Procedure Notes * Category Sub-Category Detail Notes [...] as necessary. Patient chooses, no pharmaceutical tx (08805) Keratoma Treatment Parring or Cutting o f Benign Hyperkeratotic Lesion(s) 52362 ( >4 Lesions) - The Benign hyperkeratotic lesions, as described above were pared, and/or cut utilizing a sterile #15 blade, tissue nippers, and/or dremel, Q8 Progress Notes * Suzan LINDO NDOB:[birth year] (83 yo F)Acc No.[id number]:06/04/2024 Progress Note Patient:?Suzan Lindo N Provider:?Lane Arellano DPM :1940???Age:83 Y???Sex:Female D ate:06/04/2024 Address:[address] [place], [place] [id number] Pcp:Omar Siu MD Subjective: * Chief Complaints: * ??? Painful nail(s) aggrevat ed by shoes and causing difficulty standing/walking. * HPI: ???Painful Nails:?Pt States Last PCP Visit:?Date:?01/13/2024 ???Toe pain:?Nature:?aching, tenderness, stiffness.?Location:?Great toe, 2nd toe, B/L feet.?Duration:?several months.?Onset/Cause:?gradual.?Aggravated by:?shoes, any pressure.?Treatments:?bracing/splinting/padding and wound care compliance.?Skin problems:?Nature:?Open sore.?Location:?2nd toes lamar.? * ROS:?General/Constitutional:?Nausea?denies.?Vomiting?denies.?Hunger Thirst?denies.?Loss appetite?denies.?Chills?denies.?Fatigue?denies.?Fever?denies.?Night Sweats?denies.?Unexplained weight loss?denies.?Unexplained [...] Surgical History:?left hip s urgery - fx C 01/01/2019cataracts 04/2019, 05/2019L Hand Surgery 08/2022 * [...] in Driveway. ?Marital status: . 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 ?Occupational exposure: none. * Medications:?TakingCarbidopa -Levodopa 25-100 [...] Rytary 61.25-245 MG Capsule Extended Release Oral Memantine HCl ER 7 MG Capsule Extended Release 24 Hour Oral Taking Carbidopa-Levodopa 25-100 MG Tablet 1.5tablet [...] 61.25-245 MG Capsule Extended Release Oral Taking Memantine HCl ER 7 MG Capsule Extended Release 24 Hour Oral Not-Taking/PRNDoxycycline Hyclate 100 MG Capsule 1 capsule Orally Once a day, Notes: temp 3 or 4 leftSelegiline Medication List reviewed and reconciled with the patientNot-Taking/PRN Doxycycline Hyclate 100 MG Capsule 1 capsule Orally Once a day, Notes: temp 3 or 4 leftNot-Taking/PRN Selegiline Medication List reviewed and reconciled with the patient * Allergies:?N.K.D.A.yes[Sumeet lacy Verified] Objective: * Vitals:?Ht: 5 ft 3 in, Wt:11 8, BMI:20.90, Shoe size:8.5, BP:120/80 mm Hg. * Examination: ???Nails: ?NAILS are:?Elongated, overgrown, dystrophic, lytic, greater than 3mm thick, discolored and friable with crumbly malodorous subungual debris, with pain on palpation, TA, T3, T4, T5, T9, T7 .?Dermatologic: ?SKIN FINDINGS:? Skin exam reveals Keratotic lesion(s) located at, SUB MTH (s), 1, B/L, Plantar, TA, T2, T7, medial T1 pipj.?ULCER:? LOCATION--plantar t6 pipj, is well healed.?Vascular: ?DP PULSES:? 0/4, LEFT, 1/4, RIGHT.?PT PULSES:? 0/4, LEFT, 1/4, RIGHT.?CAPILLARY FILL TIME:? delayed, all digits, B/L.?SKIN TEMPERTURE GRADIENT OF THE LOWER EXTERMITIES:? decreased, cool to cold, proximal to distal, B/L.?HAIR GROWTH/TEXTURE/ELASTICITY/TURGOR:? decreased, B/L.?General Examination: ?GENERAL APPEARANCE:?Reveals a pleasant, alert, [...] in left toe(s) - M79.675?4.?Unspecified atherosclerosis of [place] arteries of extremities, bilateral legs - I70.203?5.?Other [...] as necessary. Patient chooses, no pharmaceutical tx (39940).?Keratoma Treatment:?Parring or Cutting of Benign Hyperkeratotic Lesion(s)?21112 ( >4 Lesions) - The Benign hyperkeratotic lesions, as described above were pared, and/or cut utilizing a sterile #15 blade, tissue nippers, and/or dremel, Q8.? * Procedure Codes:?05226 DEBRI DE NAIL, 6 OR MORE, Modifiers: XS 33594 TRIM SKIN LESIONS, OVER 4, Modifiers: Q8 * Follow Up:?2 Months, 3 Month s * Images: * Sign off status: Completed true * Provider:?Lane Arellano DPM Date:? 024 Generated for Lindy dalton/Elisha/eTransmitting on:?01/21/2025 02:09 PM EDT History and Physical Notes * HPI (History of Present Illness) Category Sub-Category Detail Notes Category Not es Toe pain Nature: aching, tenderness, stiffnes s Location: Great toe, 2nd toe, B/L feet Duration: several months Onset/Cause: gradual Aggravated by: shoes, any pressure Treatments: bracing/splinting/pa dding and wound care compliance Painful Nails Pt States Last PCP Visit: Date:: 01/13/2024 Skin problems Nature: Open sore Location: 2nd toes lamar Examination Category Sub-Category Detail Notes Category Not [...]
--- OUTSIDE RECORDS SUMMARY | 2025-01-21 14:10 | XMS_ITS ---
Author [facility] Address [address] [place] [address] Care Team Providers Care Machine Stamper Name Role Phone Omar Siu MD Primary Care Provider Karla Urias Unavailable [phone] Allergies No Known Allergies REASON FOR VISIT Painful nail(s) aggravated by shoes causing difficulty standing/walking Medications Medication SIG (Take, Route, Frequency, Duration) [...] Twice a day for 30 day(s) Active Social History Tobacco Use: Social History Observation Description Date Details (start date - stop date) Current Smoker NA - NA Tobacco Use/Smoking Question Answer Notes Are you a: current smoker How often do you smoke cigarettes? some days, bu t not every day How many cigarettes a day do you smoke? 5 or les s Tobacco use other than smoking: Question Answer Notes Are you an other tobacco user? No Vital Signs Height 5 ft 3 in in 12/10/2024 Weight 118 lbs 12/10/2024 BMI 20.9 kg/m2 12/10/2024 Blood pressure systolic 120 mm Hg 12/10/19 25 Blood pressure diastolic 80 mm Hg 025 Procedures Procedure Date Ordered Date Performed Result Body Sit e 25938-QBTRICS NAIL, 6 OR MORE 12/10/2024 N/A Encounters Encounter Location Date Provider Diagnosis [facility] [place] [address] [place] [address] 12/10/2024 Karla Miles Pain in right toe(s) M79.674 ; Onychomycosis B35.1 and Pain in left toe(s) M79.675 Assessments Encounter Date Diagnosis (ICD Code) Assessment Notes Treatment Notes Treatment Clinical Notes Section Notes 12/10/2024 Pain in right toe(s) (ICD-10 - M79.674) 12/10/2024 Onychomycosis (ICD-10 - B35.1) 12/10/2024 Pain in left toe(s) (ICD-10 - M79.675) Plan Of Treatment Pending Test Test Name Order Date 98476-[id number] NAIL, 6 OR MORE 12/10/2024 Next Appt Details Follow Up: 3 Months, Reason: Provider Name:Karla young, 04/01/2025 03:15:00 PM, [address] [place] [address], [phone], Procedure Notes * Category Sub-Category Detail Notes Debride Nail 6-10 Nail debridement Due to the cl inical pathology outlined in the exam findings, performance of this nail treatment is medically necessary as its management by an unskilled/untrained nonprofessional would put this patients foot and overall health at risk. Therefore, debridement to affected nail(s), as described in exam ( TA, T1, T2, T3, T4, T5, T6, T7, T8, T9, ), was performed exclusively by the physician of record to reduce/remove overall nail length, girth, thickness, subungual debris, and necrotic tissue, by manual and/or electrical means through the use of a nail nipper and/or dremel-type white lead grinder, to a more viable healthy nail plate or bed tissue 6-10 nails in total. Silver nitrate was used for any petechial bleeding as necessary. Definitive antifungal treatment options, both pharmaceutical and surgical, have been reviewed and discussed with the patient. The patient solely prefers the use of intermittent/as needed professional debridement services for their nail condition and understands the need for additional periodic treatments to maintain effectiveness in symptomatic relief - 59773 Progress Notes * Suzan LINDO NDOB:[birth year] (84 yo F)Acc No.[id number]:12/10/2024 Progress Note Patient:?Suzan LINDO N Provider:?Karla Miles DPM :1940???Age:84 Y???Sex:Female D ate:12/10/2024 Address:[address] [place], [place] [address], [id number] Pcp:Omar Siu MD Subjective: * Chief Complaints: * ???Painful nail(s) aggravate d by shoes causing difficulty standing/walking * HPI: ???Painful Nails:?Pt States Last PCP Visit:?Date:?07/10/2024 * ROS:?General/Constitutional:?Nausea?denies.?Vomiting?denies.?Hunger Thirst?denies.?Loss appetite?denies.?Chills?denies.?Fatigue?denies.?Fever?denies.?Night Sweats?denies.?Unexplained weight loss?denies.?Unexplained [...] than smoking?Are you an other tobacco user??No ???Miscellaneous:?Caffeine: yes, frequency:, 1-2 cups per day. ?Children: yes, 2. ?Exercise: yes, housework, walking in Driveway. ?Marital status: . 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 ?Occupational exposure: none. * Medications:?TakingCarbidopa -Levodopa 25-100 MG Tablet 1.5tablet Oral Three times a day Inhaler Decongestant Levothyroxine Sodium 75 MCG Tablet 1 tablet every morning on an empty stomach Orally Once a day Selegiline HCl 5 MG Tablet 1 tablet with breakfast and lunch Orally Twice a day Vitamin B12 100 MCG Tablet 1 tablet Orally Once a day Vitamin D Rytary 61.25-245 MG Capsule Extended Release Oral Taking Carbidopa-Levodopa 25-100 MG Tablet 1.5tablet Oral Three times a day Taking Inhaler Decongestant Taking Levothyroxine Sodium 75 MCG Tablet 1 tablet every morning on an empty stomach Orally Once a day Taking Selegiline HCl 5 MG Tablet 1 tablet with breakfast and lunch Orally Twice a day Taking Vitamin B12 100 MCG Tablet 1 tablet Orally Once a day Taking Vitamin D Taking Rytary 61.25-245 MG Capsule Extended Release Oral Not-Taking/PRNMemantine HCl ER 7 MG Capsule Extended Release 24 Hour Oral Doxycycline Hyclate 100 MG Capsule 1 capsule Orally Once a day , Notes to Pharmacist: temp 3 or 4 leftSelegiline Medication List reviewed and reconciled with the patientNot-Taking/PRN Memantine HCl ER 7 MG Capsule Extended Release 24 Hour Oral Not-Taking/PRN Doxycycline Hyclate 100 MG Capsule 1 capsule Orally Once a day , Notes to Pharmacist: temp 3 or 4 leftNot-Taking/PRN Selegiline Medication List reviewed and reconciled with the patient * Allergies:?N.K.D.A.yes[Sumeet lacy Verified] Objective: * Vitals:?Ht: 5 ft 3 in, Wt: 1 18, BMI: 20.9, Shoe size: 8.5, BP: 120/80 mm Hg, Wt- k.52 kg. * Examination: ???Nails: ?NAILS are:?Elongated, overgrown, dystrophic, lytic, greater than 3mm thick, discolored and friable with crumbly malodorous subungual debris, with pain on palpation, TA, T1, T2, T3, T4, T5, T6, T7, T8, T9.? Assessment: * Assessment: 1.?Pain in right toe(s) - M7 9.674???2.?Onychomycosis - B35.1 (Primary)???3.?Pain in left toe(s) - M79.675??? Plan: * Treatment: * Procedures:?Debride Nail 6-10:?Nail debridement?Due to the clinical pathology outlined in the exam findings, performance of this nail treatment is medically necessary as its management by an unskilled/untrained nonprofessional would put this patients foot and overall health at risk. Therefore, debridement to affected nail(s), as described in exam (? TA, T1, T2, T3, T4, T5, T6, T7, T8, T9, ), was performed exclusively by the physician of record to reduce/remove overall nail length, girth, thickness, subungual debris, and necrotic tissue, by manual and/or electrical means through the use of a nail nipper and/or dremel-type white lead grinder, to a more viable healthy nail plate or bed tissue 6- 10 nails in total. Silver nitrate was used for any petechial bleeding as necessary. Definitive antifungal treatment options, both pharmaceutical and surgical, have been reviewed and discussed with the patient. The patient solely prefers the use of intermittent/as needed professional debridement services for their nail condition and understands the need for additional periodic treatments to maintain effectiveness in symptomatic relief - 36582.? * Procedure Codes:?68184 DEBRI DE NAIL, 6 OR MORE * Follow Up:?3 Months * Images: * Sign off status: Completed true * Provider:?Karla Miles DPM Date:?0 12/10/2024 Generated for Lindy dalton/Elisha/Pavelitting on:?01/21/2025 02:10 PM EDT History and Physical Notes * HPI (History of Present Illness) Category Sub-Category Detail Notes Category Not es Painful Nails Pt States Last PCP Visit: Date:: 07/10/2024 Examination Category Sub-Category Detail Notes Category Not es Nails NAILS are: Elongated, overg rown, dystrophic, lytic, greater than 3mm thick, discolored and friable with crumbly malodorous subungual debris, with pain on palpation, TA, T1, T2, T3, T4, T5, T6, T7, T8, T9
--- OUTSIDE RECORDS SUMMARY | 2025-01-21 14:11 | XMS_ITS ---
Author Organization [facility] Care Team Providers Care Senior Java Web Developer Name Role Phone Brandi Whitman Unavailable Unavailable Dee Kaufman Unavailable Unavailable Tommie Alcantar Unavailable Unavailable Allergies and adverse reactions Code CodeSystem Substance Reaction Severity StartDate Concern Status 67974 RXNORM Alendronic Acid Unknown 06/14/2023 activ e Care Team Name Role Address Phone Organization Dates Tommie Alcantar PCP [address] [place] [address], [facility], [facility] (Office): : [facility] 12/21/2024 - 12/29/2024 Brandi Whitman Attending Physician [address] [place] [address], [facility] (Office): : [facility] 12/21/2024 - 12/29/2024 Dee Kaufman Attending Physician [address] [place] [address], [place] [address], [facility] (Office): : [facility] 12/21/2024 - 12/29/2024 Imaging Narrative Note Date Imaging Narrative No te 12/22/2024 SHOULDER COMPLETE GA N 2V, LEFTSee NoteFINDINGS: The glenohumeral joint is in alignment, but there is narrowing of the joint space due to mild degenerative changes. Acromioclavicular and coracoclavicular joints are also normal. 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 12/22/2024 10:53:10 AM EST.Reason for Study: M25.512 PAIN IN LEFT SHOULDERPrincipal Result Rope Silica Machine Operator: NARINDER REBOLLAR ([id number])Reliability Technologist: RENE CARREON (DCONDON)Trencher Driver Reliability Technologist: IMER Goals Section Description Status Target Date I plan to discharge to: Spec deandre- To community alone, To Community with Family, CUSTODIAL/[facility], LTC Placement, Other- Undecided at current time. Pending outcome of therapy sessions, clinical medical stability progress reviewed weekly. Active 03/16/2025 I will attend/participate in activities of choice (Specify i.e.3-5 times weekly) by next review date. Active 03/16/2025 I will be able to communicat e needs daily by (Specify how)through the review date. Active 03/16/2025 I will be at reduced risk fo r complications of self care performance deficit and impaired mobility daily through the review date. Active 03/16/2025 I will be free from discomfo rt or adverse side effects related to anti-psychotic therapy through the review date. Active 2024 I will be free from s/sx of complications of CVA (such as DVT, contractures, aspiration pneumonia, dehydration) through review date. Active 03/16/2025 I will be free from s/sx of dehydration through next review date. Active 03/16/2025 I will be free of fall relat ed injury through the next review date. Active 03/16/2025 I will have no complications related to hyperthyroidism through the review date. Active 03/16/2025 I will maintain adequate nut ritional status as evidenced by maintaining weight within +/-5% of CBW, no s/sx of malnutrition, and consuming >51% of all meals daily through review date. Active 03/16/2025 I will maintain current leve l of cognitive function through the review date. Active 03/16/2025 I will maintain optimal qual ity of life within limitation imposed by visual function through the review date. Active 03/16/2025 I will not have skin breakdo wn due to incontinence through the review date. Active 03/16/2025 I will not have skin breakdo wn due to incontinence through the review date. Active 03/16/2025 I will remain free of furthe r s/sx, discomfort or complications related to Parkinson's disease through review date. Active I will show improvement to m aximum potential to perform ADL's by review date. Active 03/16/2025 I will show improvement to m aximum potential with mobility and cognition by review date. Active 03/16/2025 I will verbalize adequate re lief of pain or ability to cope with incompletely relieved pain through the review date. Active My risk for respiratory comp lications and infections will be mitigated through the review date. Active 03/16/2025 My skin integrity will be maintained by next rev iew date. Active 03/16/2025 The resident will have intac t skin, free of redness, blisters, or discoloration through review date. Active 03/16/2025 The resident's advance direc tives are in effect and their wishes will be carried out through the next review. Active Functional Status Code Name Recorded Time Value Entered By Eating 12/28/2024 Independent ncarroll Lying to sitting on side of bed 12/29/2024 Not assessed karenf Oral hygiene 12/29/2024 Not assessed karenf Personal hygiene 12/29/2024 Not assessed karenf Shower/bathe self 12/28/2024 Partial/moderate assist kia mohan Sit to lying 12/29/2024 Not assessed karenf Toilet transfer 12/29/2024 Not assessed karenf Toileting hygiene 12/29/2024 Substantial/maximal ass istance karenf Immunizations Immunization Status Vaccine Details Vaccine Code CodeSystem Date Notes Influenza completed Influenza, split virus, trivalent, injectable, contains preservative lotNumber: [id number] expiry: 04/10/2024 Mfg: seqirus Given 0.5 ml Right Deltoid intramuscularly 141 CVX created date: 06/20/2023 consent date: 06/20/2023 administer ed date: 06/20/2023 Educated by Elmira Holden LPN on 06/20/2023 Influenza completed Influenza, split virus, trivalent, injectable, contains preservative 141 CVX created date: 06/16/2023 administer ed date: 09/23/2022 Influenza cancelled Influenza, split virus, trivalent, injectable, contains preservative 141 CVX created date: 01/06/2019 consent date: 01/30/2019 Educated by RN on 01/30/2019 TB 2 Step Mantoux Skin Test completed tuberculin skin test; unspecified formulation lotNumber: [id number] expiry: 08/13/2020 Mfg: IntellectSpace cc Given 0.1 ml Right Forearm intradermally Step 1 of Multi-step 98 CVX created date: 01/06/2019 consent date: 01/14/2019 administer ed date: 01/14/2019 (Shingles) Vaccine completed zoster vaccine, live 121 CVX created date: 06/16/2023 administer ed date: 09/21/2019 PCV13 (Pneumococcal Conjugate)Vacci ne completed pneumococcal conjugate vaccine, 13 valent 133 CVX created date: 06/16/2023 administer ed date: 11/29/2017 PPSV23 (Previous Pneumococcal Polysaccharide) Vaccine cancelled pneumococcal polysaccharide vaccine, 23 valent 33 CVX created date: 01/06/2019 consent date: 01/30/2019 Educated by RN on 01/30/2019 Tdap (Tetanus, Diphtheria, Pertussis) completed tetanus toxoid, reduced diphtheria toxoid, and acellular pertussis vaccine, adsorbed 115 CVX created date: 06/16/2023 administer ed date: 03/05/2022 SARS-COV-2 (COVID-19) completed SARS-COV-2 (COVID-19) vaccine, mRNA, spike protein, LNP, preservative free, 50 mcg/0.5 mL dose Mfg: MODERNA Step 2 of Multi-step with next step required 221 CVX created date: 06/16/2023 administer ed date: 01/11/2021 SARS-COV-2 (COVID-19) completed SARS-COV-2 (COVID-19) vaccine, mRNA, spike protein, LNP, preservative free, 50 mcg/0.5 mL dose Mfg: MODERNA Step 1 of Multi-step with next step required 221 CVX created date: 06/16/2023 administer ed date: 12/14/2020 Moderna Covid-19 Booster (SARS-COV-2) vaccine completed SARS-COV-2 (COVID-19) vaccine, mRNA, spike protein, LNP, preservative free, 100 mcg/0.5mL dose or 50 mcg/0.25mL dose 207 CVX created date: 06/16/2023 administer ed date: 03/05/2022 Moderna Covid-19 Booster (SARS-COV-2) vaccine completed SARS-COV-2 (COVID-19) vaccine, mRNA, spike protein, LNP, preservative free, 100 mcg/0.5mL dose or 50 mcg/0.25mL dose 207 CVX created date: 06/16/2023 administer ed date: 09/21/2021 Moderna COVID-19 Bi-valent Solution completed SARS-COV-2 (COVID-19) vaccine, mRNA, spike protein, LNP, bivalent, preservative free, 50 mcg/0.5 mL or 25 mcg/0.25 mL dose 229 CVX created date: 06/16/2023 administer ed date: 09/03/2022 (Influenza) FLUAD - Adjuvanted - High Dose - 65+ completed Influenza, adjuvanted, inactivated, trivalent, injectable, preservative free 168 CVX created date: 12/25/2024 administer ed date: 09/26/2024 Medications Section Medication Name Status Code CodeSystem Dose Route Frequency Admin Type Sig Text Start Date End Date Atorvastatin Calcium Oral Tablet 40 MG active 257650 RXNORM 1 tablet Oral at bedtime Routine Give 1 tablet by mouth at bedtim e for choles terol 2024 - Tylenol Extra Strength Oral Tablet 500 MG active 525907 RXNORM 2 tablet Oral two times a day Routine Give 2 tablet by mouth two times a day for pain contro l 2024 - Lidocaine External Patch 4 % active 858506 4 RXNORM n/a n/a Topical two times a day Routine Apply to lt. should er topica lly two times a day for pain contro l on in am off in pm 2024 - Aspirin Oral Tablet Chewable 81 MG active 348828 RXNORM 1 tablet Oral one time a day Routine Give 1 tablet by mouth one time a day for thinne r 2024 - Clopidogrel Bisulfate Oral Tablet 75 MG active 120462 RXNORM 1 tablet Oral one time a day Routine Give 1 tablet by mouth one time a day for antico agulan t 2024 - Vitamin C Oral Tablet 500 MG active 1 tablet Oral one time a day Routine Give 1 tablet by mouth one time a day for supple ment 2024 - Vitamin D3 Oral Tablet 25 MCG active 1 tablet Oral one time a day Routine Give 1 tablet by mouth one time a day for supple ment 2024 - Levoxyl Oral Tablet 75 MCG active 348618 RXNORM 1 tablet Oral one time a day Routine Give 1 tablet by mouth one time a day for hypoth yroid 2024 - Selegiline HCl Oral Tablet 5 MG active 359908 RXNORM 1 tablet Oral two times a day Routine Give 1 tablet by mouth two times a day for juan parekh 2024 - Rytary Oral Capsule Extended Release 61.25-245 MG active 858352 7 RXNORM 1 capsul e Oral four times a day Routine Give 1 capsul e by mouth four times a day for juan parekh 2024 - Vitamin B12 Oral Tablet Extended Release 1000 MCG active 1 tablet Oral one time a day Routine Give 1 tablet by mouth one time a day for oracio garduno 2024 - QUEtiapine Fumarate Oral Tablet 25 MG active 100264 RXNORM 1 tablet Oral at bedtime Routine Give 1 tablet by mouth at bedtim e for antips ychoti c 2024 - Tubersol Solution 5 UNIT/0.1ML complete d 977134 RXNORM 0.1 ml Intrade rmal one time only One Time Only Inject 0.1 ml intrad ermall y one time only for TB TEST 1 until 2024 00:00 record indura tion in millim eters; Read PPD in 48 hours, notify physic cami if positi ve and discon tinue 2-step . 12/23 Tubersol Solution 5 UNIT/0.1ML active 953936 RXNORM 0.1 ml Intrade rmal one time only One Time Only Inject 0.1 ml intrad ermall y one time only for TB TEST #2 until 2024 00:00 record indura tion in millim eters; Read PPD in 48 hours, notify physic cami if positi ve. 01/06 Dulcolax Suppository 10 MG active 248438 RXNORM 1 suppos itory Rectal as needed PRN Insert 1 suppos itory rectal ly every 72 hours as needed for Consti pation every 3 days if No Bowel Moveme nt and Milk of Magnes ia ineffe ctive 2024 - Milk of Magnesia Suspension 400 MG/5ML active 781951 RXNORM 30 ml Oral as needed PRN Give 30 ml by mouth every 24 hours as needed for Consti pation daily 2024 - Fleet Enema Enema 7-19 GM/118ML active 069556 RXNORM 1 applic ation Rectal as needed PRN Insert 1 applic ation rectal ly every 24 hours as needed for Consti pation daily 2024 - Amoxicillin-P ot Clavulanate Tablet 875-125 MG complete d 899355 RXNORM 1 tablet Oral every 12 hours Routine Give 1 tablet by mouth every 12 hours for aspira tion PNA for 3 Days 12/26 Mental Status Section Date Assessment Total Score Description 07/22/2023 BIMS 12 moderate cognit mason impairment CAM 0 No delirium ind icated PHQ-9 02 minimal depress ion 06/17/2023 BIMS 12 moderate cognit mason impairment CAM 0 No delirium ind icated PHQ-9 04 minimal depress ion Problems Problem # Description Date of onset Resolved Date Code CodeSystem Concern Status 1 BLINDNESS LEFT EYE CATEGORY 3, NORMAL VISION RIGHT EYE 12/22/[address] active 2 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 12/21/[address] active 3 DYSPHAGIA, OROPHARYNGEAL PHASE 12/21/[address] active 4 MUSCLE WASTING AND ATROPHY, NOT ELSEWHERE CLASSIFIED, MULTIPLE SITES 12/21/[address] active 5 PARKINSON'S DISEASE WITHOUT DYSKINESIA, WITHOUT MENTION OF FLUCTUATIONS 12/21/[address] active 6 UNSPECIFIED DEMENTIA, UNSPECIFIED SEVERITY, WITHOUT BEHAVIORAL DISTURBANCE, PSYCHOTIC DISTURBANCE, MOOD DISTURBANCE, AND ANXIETY 12/21/[address] active 7 UNSPECIFIED PROTEIN-CALORIE MALNUTRITION 12/21/[address] active 8 ENCOUNTER FOR OTHER ORTHOPEDIC AFTERCARE 06/14/20 23 12/21/[address] completed 9 HALLUCINATIONS, UNSPECIFIED 06/14/20 23 12/21/[address] completed 10 UNSPECIFIED FRACTURE OF RIGHT FEMUR, SUBSEQUENT ENCOUNTER FOR CLOSED FRACTURE WITH ROUTINE HEALING 06/14/20 23 12/21/[address] completed 11 UNSPECIFIED PROTEIN-CALORIE MALNUTRITION 06/14/20 23 12/21/[address] completed 12 ENCOUNTER FOR OTHER SPECIFIED SURGICAL AFTERCARE 01/04/20 19 12/21/[address] completed 13 HYPOTHYROIDISM, UNSPECIFIED 01/04/[address] active 14 MUSCLE WEAKNESS (GENERALIZED) 01/04/20 19 12/21/[address] completed 15 OTHER ABNORMALITIES OF GAIT AND MOBILITY 01/04/20 19 12/21/[address] completed 16 OTHER LACK OF COORDINATION 01/04/20 19 12/21/[address] completed 17 PARKINSON'S DISEASE 01/04/20 19 12/21/[address] completed 18 REPEATED FALLS 01/04/20 19 12/21/[address] completed 19 UNSPECIFIED FRACTURE OF LEFT FEMUR, SUBSEQUENT ENCOUNTER FOR CLOSED FRACTURE WITH ROUTINE HEALING 01/04/20 19 12/21/[address] completed 20 WEAKNESS 01/04/20 19 12/21/[address] completed Reason for Referral No Reasons for Referral Entered Diagnostic Results Result Code Code System Date Test Result Interpretation Reference Range Status Notes 85616-9 LOINC 12/22 SHOULDER COMPLETE MIN 2V Completed Result for: SUZAN LINDO ( 1940, F) 58902-0 LOINC 12/22 SHOULDER COMPLETE MIN 2V Final SHOULDER COMPLETE MIN 2V, LEFTSee NoteFINDINGS: The glenohumeral joint is in alignment, but there is narrowing of the joint space due to mild degenerative changes. Acromioclavicul ar and coracoclavicula r joints are also normal. 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 12/22/2024 10:53:10 AM EST.Reason for Study: M25.512 PAIN IN LEFT SHOULDERPrincip al Result Rope Silica Machine Operator: NARINDER REBOLLAR ([id number])Carolyn hnician: RENE CARREON (DCONDON)Transc ription Reliability Technologist: IMER Test Code Code System Name Date 12/22/2024 Social History Social History Observation Description Start Date End Date Code Code System Current Smoking Status Tobacco smoking consumption unknown 649665849 SNOMED CT Sex Assigned At Female 1940 02660-1 [facility] Vital Signs Code Code System Vitals Name Values and Units Timing Information 97695-7 INC Pain Level Value=0.0 12/29/2024 9279-1 LOINC Respiratory Rate Value=16.0 Units=/m in 12/28/2024 8462-4 [facility] Blood Pressure-Diastolic Value=76 Un its=mmHg 12/28/2024 8480-6 LOINC Blood Pressure-Systolic Mvikd=374 Un its=mmHg 12/28/2024 8310-5 [facility] Body Temperature Value=97.9 Units=?? F 12/28/2024 8867-4 LOINC Heart rate Value=88.0 Units=/min 35645-7 [facility] O2 % BldC Oximetry Value=96.0 Units= % 12/28/2024 94074-0 LOINC Weight Mxkda=424.7 Units=Lbs 8302-2 LOINC Height Value=64.0 Units=Inches 12/22/2024
--- OUTSIDE RECORDS SUMMARY | 2025-01-21 14:11 | XMS_ITS | Continuity of Care Document ---
Author Organization [facility] Alhaji Mayo Noel lt Address [address] [place] [address]- Care Team Providers Care Mechanical Engineering Officer Name Role Phone Omar Siu MD Primary Care Physician [phone] Encounter [facility] Date(s): 12/18/24 - 01/18/25 [facility] [address] [place] [address]- Attending Physician: Omar Siu MD Encounter Type: Pre Office Visit Allergies, Adverse Reactions, Alerts Substance [...] influenza virus vaccine, inactivated 09/05/14 Radu rded [id number] bivalent booster vax 09/03/22 Recorded tetanus/diphtheria/pertussis, acel(Tdap) 4 03/05/22 Given SARS-CoV-2 mRNA ([id number]) vax 5 03/05/22 Given SARS-CoV-2 (COVID-19) mRNA-1273 [...] pneumococcal 23-valent vaccine 11/14/07 Recorded 1Result Comment: [facility]: [id number] Screening checklist reviewed with patient. Negative for any contraindications. 2Result Comment: [facility]-[id number] 3Result Comment: [facility]-[id number] 4Result Comment: upper deltoid 5Result Comment: bottom [...] 1 Refills, Maintenance, 09/27/24 3:01:00 PM EST, [facility], 159.7, cm, 09/26/24 [...] 2:52:00 PM EST, Route to Pharmacy Electronically, [facility], Partial fill upon [...] 0 Refills, Maintenance, 06/28/19 10:11:49 AM EDT, [facility] Start Date: 06/28/19 Status: [...] tablet, 3 Refills, Maintenance, 199:06:51 AM EST, [facility] Start Date: 12/21/18 Status: [...] Team Personnel Name: Kenia Monroy RN Position: [facility] RN Member Role: Primary Care Nurse Name: Rita Peterson RN Position: [facility] Onco RN Member Role: Primary Care Nurse Name: Omar Siu MD Position: [facility] Physician - Primary Care Member Role: PCP Address: [address] [place] [address]- Telecom: Name: Tracie Howell RN Position: [facility] NADIA Nurse Member Role: Primary Care Nurse Name: Maya Siddiqi Position: [facility] Sales Order Coordinator Member Role: Prn Physical Therapist Care Team Related Persons Name: JAHAIRA AVILES Insurance Providers Guarantor name: LISA AVILES [place] Plan Information #: 1 Payer: MEDICARE PART B OUTPT Member Number: [id number] Policy Number: NA Group Number: NA Health Plan Information #: 2 Payer: MEDICARE PART B OUTPT Member Number: [id number] Policy Number: NA Group Number: NA
[2025-01-21 16:52] LABS: Appearance Urine Cloudy; Color Urine Yellow; Glucose Urine UA Negative (Negative); Leukocyte Esterase Urine Negative (Negative); Nitrite Urine Negative (Negative); Specific Gravity - Urine >= 1.030 (1.005-1.025); Urine Blood Negative (Negative); Urine Ketones Negative (Negative); Urine Protein Negative (Neg-Trace)
[2025-01-21 17:02] LABS: Amphetamine Screen Urine Not Detected (Not Detect); Barbiturates, Urine Not Detected (Not Detect); Benzodiazepines Screen Urine Not Detected (Not Detect); Buprenorphine Scr Not Detected (Not Detect); Cannabinoid Screen Urine Not Detected (Not Detect); Cocaine Screen Urine Not Detected (Not Detect); Fentanyl, urine Not Detected (Not Detect); Methadone Screen, Urine Not Detected (Not Detect); Opiate Screen Urine Not Detected (Not Detect); Oxycodone Screen Urine Not Detected (Not Detect); Phencyclidine Screen Urine Not Detected (Not Detect)
[2025-01-21 17:07] LABS: Influenza A PCR NEGATIVE (Negative); Influenza B PCR NEGATIVE (Negative); Resp Syncy Virus RNA Qual PCR NEGATIVE (Negative); SARS COV2 PCR INHOUSE NEGATIVE (Negative)
[2025-01-21 18:38] VITALS: BP 157/83; PULSE 92; RESP 18; TEMP 36.6; O2SAT 99
== END 2025-01-21 18:40 | disposition home or self-care (01) ==
PROVIDERS: Emergency Provider Emergency Medicine
DX: R41.82 Altered mental status, unspecified (principal); D50.0 Iron deficiency anemia secondary to blood loss (chronic); G20.B1 Parkinson's disease with dyskinesia, without mention of fluctuations; E03.9 Hypothyroidism, unspecified; G47.33 Obstructive sleep apnea (adult) (pediatric); Z86.73 Personal history of transient ischemic attack (TIA), and cerebral infarction without residual deficits; Z87.891 Personal history of nicotine dependence; Z79.899 Other long term (current) drug therapy; Z79.82 Long term (current) use of aspirin; Z03.818 Encounter for observation for suspected exposure to other biological agents ruled out
CPT/HCPCS: 0241U; 36415; 70450; 70496; 70498; 70551; 71045; 80048; 80076; 80307; 81003; 82803; 82947; 83690; 83735; 83880; 84484; 85025; 85610; 86140; 93005; 99285; Q9967

== ENCOUNTER → 2025-01-21 11:55 | Outpatient (BNV) | payer MEDICARE, OTHER, SELFPAY | PROVIDERS: Emergency Provider Emergency Medicine; Visit Provider Radiology Diagnostic Radiology | DX: R47.81 Slurred speech (principal); I63.311 Cerebral infarction due to thrombosis of right middle cerebral artery; J84.9 Interstitial pulmonary disease, unspecified | CPT/HCPCS: 70496; 70498; 70551; 71045 ==

== ENCOUNTER → 2025-01-21 11:55 | Outpatient (BNV) | payer MEDICARE, OTHER, SELFPAY | PROVIDERS: Emergency Provider Emergency Medicine; Visit Provider Internal Medicine | DX: I44.0 Atrioventricular block, first degree (principal) | CPT/HCPCS: 93010 ==

== ENCOUNTER 2025-01-22 10:22 | Observation (INO) | payer MEDICARE, OTHER, SELFPAY ==
--- NOTE | 2025-01-22 | EEG_ITS ---
This is a 16-channel EEG with an EKG lead. The patient is reported awake during the tracing. Background EEG rhythm is 5 to 6 hertz 5 to 50 microvolt posteriorly lower amplitude faster. No definite sharp wave spikes or paroxysmal tendency noted. Cardiac lead does not reveal any significant abnormality. Photic stimulation is unremarkable. Hyperventilation is not performed. IMPRESSION: Generalized slowing with no evidence of seizure disorder. MD ASHU Oh/ZOLTAN / [id number]
--- NOTE | ~2025-01-22 | XR_ITS ---
EXAMINATION: XR CHEST CLINICAL INFORMATION: Stroke Protocol COMPARISON: January 21, 2025. TECHNIQUE: Frontal view of the chest was obtained. FINDINGS: No consolidation, pleural effusion or pneumothorax. Pulmonary reticular pattern. Bilateral apical lung scarring. Cardiomediastinal silhouette demonstrates a prominent thoracic aorta with calcified plaques. S-shaped curvature of the thoracolumbar spine. Probable old superior endplate compression deformity lower thoracic spine vertebral body. XR/XR chest 1V IMPRESSION: Chronic interstitial lung disease. Mild interstitial lung edema cannot be excluded.. Electronically signed by: Dorian Brunner MD 01/22/2025 11:11 AM EDT
--- NOTE | ~2025-01-22 | CT_ITS ---
EXAMINATION: CT ANGIOGRAM HEAD AND NECK CLINICAL INFORMATION: Slurred speech, stroke protocol. Patient has known subacute evolving infarcts involving the right parieto-occipital lobe, and right centrum semiovale in a watershed region. COMPARISON: CT angiogram head and neck performed prior day. MRI head performed prior day. TECHNIQUE: CTA head and neck performed via test bolus sequences and head and neck intravenous bolus administration 70 mL of Omnipaque 350. Helical imaging was performed in the axial plane from the aortic arch to the skull vertex. The data was processed at the dental technologist's workstation for generation of MIP sequences. Angled MIPs and volume rendered reformatted images were also generated at an offline 3D workstation. Stenoses are assessed in accordance with NASCET criteria unless otherwise indicated. This CT examination was performed using dose optimization techniques as appropriate, variously including the following: *Automated exposure control *Adjustment of mA and/or kV according to patient size (this includes techniques or standardized protocols for targeted exams where dose is matched to indication/reason for exam; i.e. extremities or head) *Use of iterative reconstruction technique FINDINGS: NONCONTRAST HEAD CT: There is no evidence of intracranial hemorrhage or extra-axial fluid collection. There is no mass effect, or edema. No CT evidence of acute territorial infarct. Ventricles, sulci, and cisterns are normal in size and configuration for patient age. No hydrocephalus. No midline shift. No significant white matter abnormalities. Empty sella noted. Mild atheromatous calcification of the bilateral carotid siphons and V4 segments vertebral arteries bilaterally. Globes and orbital contents image normally. No extracranial soft tissue abnormalities. The paranasal sinuses, mastoid air cells, and tympanic cavities are normally aerated. No suspicious bony abnormalities. NECK CTA: -AORTIC ARCH: Normal in caliber. Moderate calcific and soft plaque present. Three-vessel branching pattern. -GREAT VESSEL ORIGINS: Widely patent. No stenoses. -RIGHT COMMON CAROTID ARTERY: Normal in course and caliber at the level of the bifurcation. -CERVICAL RIGHT INTERNAL CAROTID ARTERY: There is approximately 50% stenosis at the origin of the right ICA due to mix of soft and calcific plaque. The remainder of the vessel is normal in course and caliber into the skull base. -LEFT COMMON CAROTID ARTERY: Normal in course and caliber to the level of the bifurcation. -CERVICAL LEFT INTERNAL CAROTID ARTERY: There is an approximately 30% stenosis at the origin of the left ICA secondary to predominantly calcific plaque. The remainder of the vessel is normal in course and caliber into the skull base. -CERVICAL RIGHT VERTEBRAL ARTERY: Nondominant. Normal origin. Normal in course and caliber into the skull base. -CERVICAL LEFT VERTEBRAL ARTERY: Dominant. Normal origin. Normal in course and caliber into the skull base. OTHER, SOFT TISSUES: -Diminutive thyroid. -Lung apices demonstrate biapical scarring, mild centrilobular emphysema, and mild thickening of the small airways. There is minimal small airway bronchiectasis. -Patulous appearing esophagus. CTA OF THE BRAIN: -INTRACRANIAL INTERNAL CAROTID ARTERIES: Calcific atherosclerotic disease of the intracranial internal carotid arteries without occlusion or flow-limiting stenosis. 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 -RIGHT ANTERIOR CEREBRAL ARTERY: The A1 segment is diminutive. Normal arborization of the distal segments. -LEFT ANTERIOR CEREBRAL ARTERY: Normal A1 segment. Normal arborization of the distal segments. -ANTERIOR COMMUNICATING ARTERY: Normal. -RIGHT MIDDLE CEREBRAL ARTERY: Normal M1 segment of the MCA without focal stenosis or occlusion. Normal arborization of the distal segments. -LEFT MIDDLE CEREBRAL ARTERY: Normal M1 segment of the MCA without focal stenosis or occlusion. Normal arborization of the distal segments. -RIGHT VERTEBRAL ARTERY V4: Normal in course and caliber. Normal PICA branch. -LEFT VERTEBRAL ARTERY V4: Normal in course and caliber. Normal PICA branch. -BASILAR ARTERY: Normal without focal stenosis or occlusion. Normal appearance of the proximal superior cerebellar arteries. Normal basilar tip. -RIGHT POSTERIOR CEREBRAL ARTERY: Short segment moderate grade stenosis of the proximal P1 segment. Focal high-grade stenosis at the junction of the A1 and A2 segments (series 12, image 97). Normal opacification of the distal RETAIL CUSTODIAL ASSOCIATE segments. -LEFT POSTERIOR CEREBRAL ARTERY: Normal P1 segment. Normal opacification of the distal RETAIL CUSTODIAL ASSOCIATE segments. -POSTERIOR COMMUNICATING ARTERIES: Poorly seen bilaterally. Normal opacification of the superior sagittal, straight, transverse, and sigmoid sinuses. No venous thrombosis. No definite evolving territory infarct or space-occupying hemorrhage. CT/CT angio head neck STROKE IMPRESSION: CTA NECK: 1. Approximate 50% stenosis of the right ICA at the origin secondary to mixed plaque. 2. Approximate 30% stenosis of the left ICA at the origin secondary to predominately calcific plaque. 3. Patent vertebral arteries. The left is dominant. CTA HEAD: 1. No large vessel occlusion. 2. Moderate grade focal stenosis right P1 segment RETAIL CUSTODIAL ASSOCIATE, followed by a high-grade stenosis of the P1/P2 junction. The remainder of the vessel and branches appear to opacify normally. 3. 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 4. There is a no additional significant stenosis or occlusion in the intracranial circulation. Overall, no significant change from prior day. Electronically signed by: Ward Antonio MD 01/22/2025 11:15 AM EDT RP
--- NOTE | ~2025-01-22 | CT_ITS ---
EXAMINATION: CT HEAD WITHOUT CONTRAST (STROKE PROTOCOL) CLINICAL INFORMATION: Stroke protocol. Slurred speech. COMPARISON: 01/21/2025. To 425. TECHNIQUE: Contiguous axial imaging was performed from the skull base to vertex without intravenous administration of contrast. This CT examination was performed using dose optimization techniques as appropriate, variously including the following: *Automated exposure control *Adjustment of mA and/or kV according to patient size (this includes techniques or standardized protocols for targeted exams where dose is matched to indication/reason for exam; i.e. extremities or head) *Use of iterative reconstruction technique FINDINGS: There is no evidence of intracranial hemorrhage or extra-axial fluid collection. There is no mass effect, or edema. No CT evidence of acute territorial infarct. Ventricles, sulci, and cisterns are mildly diffusely prominent, in keeping with age-related involutional change. No hydrocephalus. No midline shift. Negative hyperdense MCA sign. Negative insular ribbon sign. 5 mm calcification abutting the inner table of the right posterior parietal bone, consistent with a calcified meningioma (series 4, image 25). Patchy periventricular and deep white matter hypoattenuation is consistent with moderate small vessel ischemic changes. There is an old right parieto-occipital infarct, unchanged. There are old bilateral frontal lobe white matter infarcts. Mild atheromatous calcification of the bilateral carotid siphons and V4 segments vertebral arteries bilaterally. Globes and orbital contents image normally. Bilateral lens replacements. No extracranial soft tissue abnormalities. The paranasal sinuses, mastoid air cells, and tympanic cavities are normally aerated. No suspicious bony abnormalities. There is plagiocephaly. There are no acute fractures evident. Severe degenerative arthropathy both TM joints. CT/CT head for STROKE IMPRESSION: 1. No acute intracranial abnormality. No CT evidence of acute territorial infarct. Chronic white matter changes as discussed. 2. Old right parieto-occipital lobe infarct, and old bifrontal white matter infarcts. Electronically signed by: Ward Antonio MD 01/22/2025 10:58 AM EDT
--- NOTE | 2025-01-22 10:28 | ECG_ITS ---
Test Reason : stroke protocol Blood Pressure : */* mmHG Vent. Rate : 82 BPM Atrial Rate : 82 BPM P-R Int : 186 ms QRS Dur : 72 ms QT Int : 390 ms P-R-T Axes : 60 19 56 degrees QTcB Int : 455 ms Normal sinus rhythm Low voltage QRS Septal infarct (cited on or before 26-Nov-2010) Abnormal ECG When compared with ECG of 21-Jan-2025 12:48, UT interval has decreased Referred By: Danny Altamirano Electronically Signed By: BRIANNA JAVIER
--- NOTE | 2025-01-22 10:29 | ED_ITS ---
HPI - Weakness General Chief complaint: Weakness Stated complaint: AID STS WEAK,AMS,SPEECH CHANGE,SEEN T-1 FOR SAME Time Seen by Provider: 01/22/25 10:27 Source: patient and EMS Mode of arrival: EMS Limitations: physical limitation History of Present Illness HPI Narrative: 84-year-old female presents via EMS for the 2nd time in 2 days for acute weakness and falling back. Patient seen here had a complete stroke workup and was felt to be more of a labile emotional affect. Last night she seemed to be acting strangely at dinner. Apparently she seemed unaware that there was food on her plate. Later she apparently seemed normal and her put her to bed. At around 23:00 she seemed to have a lot of hallucinations and seemed quite frightened. Nevertheless her was ultimately able to calm her down. Today the patient was with her daughter who is her primary caregiver they were trying to get her to the bathroom and she fell back became weak and then had slurred speech. MD Complaint: generalized weakness Related Data Home Medications ?Medication ?Instructions ?Recorded ?Confirmed levothyroxine 75 mcg tablet 75 mcg PO DAILY@0600 01/19/22 12/18/24 mecobalamin (vitamin B12) 1,000 1,000 mcg PO DAILY 04/05/23 12/18/24 mcg chewable tablet ascorbic acid (vitamin C) 500 mg 500 mg PO DAILY 07/22/23 12/18/24 tablet cholecalciferol (vitamin D3) 25 25 mcg PO DAILY 12/18/24 12/18/24 mcg (1,000 unit) tablet (Vitamin D3) quetiapine 25 mg tablet 25 mg PO BEDTIME PRN Sleep 12/18/24 12/18/24 Previous Rx's ?Medication ?Instructions ?Recorded carbidopa ER 61.25 mg-levodopa 245 1 cap PO QID 30 days #120 caps 05/03/24 mg capsule,extended release (Rytary) selegiline HCl 5 mg tablet 5 mg PO BID 30 days #60 tabs 12/17/24 nicotine (polacrilex) 2 mg buccal 2 mg buccal Q2-4H PRN nicotine 12/20/24 lozenge cravings #108 ea aspirin 81 mg chewable tablet 81 mg PO DAILY #30 tabs 12/21/24 atorvastatin 40 mg tablet 40 mg PO DAILY #30 tabs 12/21/24 clopidogrel 75 mg tablet 75 mg PO DAILY #30 tabs 12/21/24 Allergies Allergy/AdvReac Type Severity Reaction Status Date / Time alendronate sodium AdvReac Unknown Unknown Verified 01/22/25 10:39 [From Fosamax] Review of Systems 2 Review of Systems: Review of systems: The patient is a very limited historian Yes all other systems are reviewed and are negative [facility] Past Medical History Medical History (Updated 01/22/25 @ 11:27 by Danny Altamirano DO) Multifactorial dementia Dementia with behavioral disturbance Parkinson's disease Aortic stenosis, mild Hypothyroidism Surgical History Hx of colonoscopy History of hand surgery History of total hip replacement Family History Family History Sister AAA (abdominal aortic aneurysm) Social History Social History Household Members: Spouse and Caregiver Household Members Other:: was a rehab and home for 1 day Housing: [facility] Do you presently have visiting nurse or other home services: Yes Alcohol intake: former 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 Patient Tobacco Use Status: Former Tobacco user Tobacco use type: Cigarette Cigarettes Per Day: 4 Years Smoked: 35 Smoked in Last 30 Days: No Second Hand Smoke Exposure: No Use of substances other than those prescribed or required for medical reasons: No Advance Directives: Yes Advance Directives on File: Yes Advance Directives Date on File: 08/10/23 Do you have a plan to hurt others: No Plan service: No Current occupational status: retired and disabled 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 Patient is alert and oriented to person place and time. Patient has no dysphagia or dysarthia, denies good vision in all four vision tobar no nystagmus on exam, good strength to upper and lower extremities with normal reflexes to brachioradialis, wrist, patella and achilles. Negative romberg, . Very diminished effort on all things but has normal strength is able to push and pull lift up arms was unable to do [id number] exam General: Well-appearing well-nourished in no signs of distress HEENT: Normocephalic atraumatic Neck: No signs of JVD, no masses no tenderness or lymphadenopathy Cardiovascular: Regular rate and rhythm Respiratory: Clear to auscultation bilaterally Abdomen: Soft nontender no masses Extremities: Normal pedal pulses no signs of edema Skin: Dry warm no rashes Back: No tenderness full ROM NIH Stroke Scale Internal: Initial- Upon Arrival Level of Consciousness: Alert Level of Consciousness Questions: Answers both questions correctly Level of Consciousness Commands: Performs both tasks correctly Best Gaze: Normal Visual: No visual loss Facial Palsy: Normal Motor Arm (Right): Some effort against gravity Motor Arm (Left): Some effort against gravity Motor Leg (Right): Some effort against gravity Motor Leg (Left): Some effort against gravity Limb Ataxia: Absent Sensory: Normal Best Language: No aphasia Dysarthia: Normal Extinction and Inattention: No abnormality Score: 8 Course Course Course Narrative: 1119 Daughter is now in the room patient speech is much more clear patient has no new concerns patient looks comfortable in the chair and answering questions patient presented similarly ill yesterday already had a complete workup for this I will discuss the case with Neurology as they feel the patient is okay to come and follow up with them in the office. Reevaluation(s) Reevaluation #1: I did speak with Neurology who agrees the patient should be admitted for seizure workup including an EEG patient is back to baseline I did speak with the back up scan coordinator patient will be admitted to medicine service I discussed the case with the hospitalist service. Medications Administered Generic Name Dose Route Start Last Admin Trade Name Freq PRN Reason Stop Dose Admin Sodium Chloride 1,000 mls @ 999 mls/hr 01/22/25 10:30 01/22/25 11:09 Ns IV 01/22/25 11:30 999 mls/hr .Q1H1M AMY Administration Discontinued Medications Generic Name Dose Route Start Last Admin Trade Name Freq PRN Reason Stop Dose Admin Iohexol 70 ml 01/22/25 10:57 01/22/25 10:58 Iohexol 350 Mg/Ml 75 Ml Infus..Btl IV 01/22/25 10:58 70 ml ONCE ONE Administration Medical Decision Making Medical Decision Making MDM Narrative: I will again consult neurology about evaluation and decision making went to CT is back patient had a negative MRI straight do not this is an acute stroke today I will again check labs and reassess Differential Diagnosis Differential Diagnoses: The differential diagnosis associated with the presentation includes Concern for stroke versus near-syncope versus behavioral issue patient underwent an MRI yesterday that was negative and the family was concerned about a UTI which was negative yesterday Admission/Observation Consideration of admission/observation: Escalation of care including admission/observation considered Consult Healthcare Provider Management of the patient was discussed with: Area Coordinator Lab Data [facility] Lab Attestation statement: I reviewed the patient's lab results. 01/22/25 10:34 01/22/25 10:34 Labs: Lab Results 01/22/25 01/22/25 Range/Units 10:34 11:00 WBC 4.7 L (4.8-10.8) X10*3/uL RBC 3.72 L (4.20-5.50) X10*6/uL Hgb 11.7 L (12.0-16.0) g/dl Hct 35.3 L (37.0-47.0) % MCV 94.9 (80.0-98.0) fL MCH 31.5 (27.0-33.0) pg MCHC 33.1 (31.0-35.0) g/dl RDW 14.6 (11.0-16.0) % Plt Count 208 (160-400) X10*3/uL MPV 11.7 (9.4-12.3) fL Immature Gran % (Auto) 0.2 (0.0-0.4) % Neut % (Auto) 58.7 (45-73) % Lymph % (Auto) 25.2 (20-40) % Beauregard % (Auto) 7.9 (2-11) % Eos % (Auto) 7.1 H (0-4) % Baso % (Auto) 0.9 (0-2) % Lymph # (Auto) 1.2 (1.2-4.9) X10*3/uL Beauregard # (Auto) 0.4 (0.1-1.2) X10*3/uL Eos # (Auto) 0.3 (0.0-0.4) X10*3/uL Baso # (Auto) 0.0 (0.0-0.2) X10*3/uL Abs Immat Gran (auto) 0.01 (0.00-0.03) X10*3/uL Absolute Neuts (auto) 2.8 (2.0-8.3) x10*3/uL Absolute Nucleated RBC 0.000 (0.0-0.012) X10*3/uL Nucleated RBC % (auto) 0.0 (0.0-0.2) /100WBC PT 10.7 L (10.9-12.4) SEC Whole Blood PT 11.8 (11.1-13.5) sec INR 0.9 (0.9-1.1) Whole Blood INR 1.0 (0.9-1.1) APTT 31.5 (26.0-36.8) SEC Sodium 141 (135-145) mmol/L Potassium 3.9 (3.3-5.1) mmol/L Chloride 113 H (96-108) mmol/L Carbon Dioxide 22 (22-29) mmol/L Anion Gap 10 L (12-20) BUN 19 H (9-16) mg/dL Creatinine 0.89 (0.5-1.4) mg/dL Estim Creat Clear Calc 41.2 Estimated GFR > 60 Random Glucose 110 (60-115) mg/dL Calcium 9.0 (8.4-10.2) mg/dL Triglycerides 142 (<150) mg/dL Cholesterol 169 (<200) mg/dL LDL Cholesterol, Calc 94 (<100) mg/dL HDL Cholesterol 47 (>40) mg/dL Independent Interpretation I performed an independent interpretation of an: EKG, Plain X-Ray and CT Scan Radiology Impression Discussion of test interpretation with radiology: I have reviewed the radiologist's reading. Independent Historian Clinical information obtained from an independent historian. History obtained from or confirmed by: Other External Record Review External record reviewed: Inpatient record, Office record and Outpatient record Critical Care Time Critical Care Time Critical Care Time: Yes Total Critical Care Time: 40 Attestation: Patient him in his acute stroke sent immediately for CT is seen immediately upon arrival patient then was seen by back up scan coordinator as well as discussion with Radiology and Neurology and ultimate admission to the hospitalist service. Discharge Plan Discharge Clinical Impression: Brain TIA, Near syncope, Acute alteration in mental status, Slurred speech Patient Disposition: Admitted As Inpatient Prescriptions: No Action Rytary 61.25-245 mg capsule, extended release 1 cap PO QID 30 Days Qty: 120 6RF Rx Instructions: at 7:30am, 11:30am, 4:30pm, 8pm selegiline HCl 5 mg tablet 5 mg PO BID 30 Days Qty: 60 6RF quetiapine 25 mg tablet 25 mg PO BEDTIME PRN (Reason: Sleep) cholecalciferol (vitamin D3) [Vitamin D3] 25 mcg (1,000 unit) Tablet 25 mcg PO DAILY nicotine (polacrilex) 2 mg lozenge 2 mg buccal Q2-4H PRN (Reason: nicotine cravings) Qty: 108 0RF atorvastatin 40 mg Tablet 40 mg PO DAILY Qty: 30 0RF clopidogrel 75 mg Tablet 75 mg PO DAILY Qty: 30 0RF aspirin 81 mg Tablet,Chewable 81 mg PO DAILY Qty: 30 0RF ascorbic acid (vitamin C) 500 mg Tablet 500 mg PO DAILY levothyroxine 75 mcg tablet 75 mcg PO DAILY@0600 mecobalamin (vitamin B12) 1,000 mcg tablet,chewable 1,000 mcg PO DAILY Print Language: Citizen [place]
[2025-01-22 10:37] VITALS: BP 101/55; BP 105/77; PULSE 90; RESP 20; TEMP 36.3; O2SAT 98; BMI 19.8
[2025-01-22 10:47] LABS: MANUAL DIFF FLAG NO
[2025-01-22 10:49] LABS: Basophils Percent Auto 0.9 % (0-2); Eosinophils Absolute Auto 0.3 X10*3/uL (0.0-0.4); Eosinophils Percent Auto 7.1 % (0-4); Hematocrit 35.3 % (37.0-47.0); Hemoglobin 11.7 g/dl (12.0-16.0); Imm Gran Abs Auto 0.01 X10*3/uL (0.00-0.03); Imm Gran Pct Auto 0.2 % (0.0-0.4); Lymphocytes Absolute Auto 1.2 X10*3/uL (1.2-4.9); Lymphocytes Percent Auto 25.2 % (20-40); Mean Corpuscular HGB Conc 33.1 g/dl (31.0-35.0); Mean Corpuscular Hemoglobin 31.5 pg (27.0-33.0); Mean Corpuscular Volume 94.9 fL (80.0-98.0); Mean Platelet Volume 11.7 fL (9.4-12.3); Monocytes Absolute Auto 0.4 X10*3/uL (0.1-1.2); Monocytes Percent Auto 7.9 % (2-11); Neutrophils Absolute Auto 2.8 x10*3/uL (2.0-8.3); Neutrophils Percent Auto 58.7 % (45-73); Platelet Count 208 X10*3/uL (160-400); Red Blood Count 3.72 X10*6/uL (4.20-5.50); Red Cell Distribution Width 14.6 % (11.0-16.0); White Blood Count 4.7 X10*3/uL (4.8-10.8)
[2025-01-22 10:53] LABS: INTERNATIONAL NORM RATIO 0.9 (0.9-1.1); Prothrombin Time 10.7 SEC (10.9-12.4)
[2025-01-22 10:56] LABS: Partial Thromboplastin Time 31.5 SEC (26.0-36.8)
[2025-01-22] MEDS: iohexoL 350 MG/ML 75 ML INFUS..BTL 70 ML IV (10:58)
[2025-01-22 11:05] LABS: Stroke Lab Use COMPLETE
[2025-01-22 11:06] VITALS: BP 113/60; PULSE 80; RESP 16; O2SAT 97
[2025-01-22 11:09] LABS: Prothrombin Time Whole Bld POC 11.8 sec (11.1-13.5)
[2025-01-22] MEDS: 0.9 % Sodium Chloride 1,000 ML 999 ML IV (11:09)
[2025-01-22 11:11] LABS: Anion Gap 10 (12-20); Blood Urea Nitrogen 19 mg/dL (9-16); Carbon Dioxide 22 mmol/L (22-29); Chloride 113 mmol/L (96-108); Cholesterol 169 mg/dL (<200); Creatinine Clr Calc Pharmacy 41.2; Estimated Glomerular Filt Rate > 60; Glucose Random 110 mg/dL (60-115); HDL Cholesterol 47 mg/dL (>40); LDL Cholesterol Calculated 94 mg/dL (<100); Potassium 3.9 mmol/L (3.3-5.1); Sodium 141 mmol/L (135-145); Triglycerides 142 mg/dL (<150)
[2025-01-22 11:30] LABS: Troponin-I High Sensitivity < 2.7 ng/L (<3.5-17.0)
--- NOTE | 2025-01-22 11:52 | MHC.STROKE ---
Met with patient in room 5 along with caregiver. Pt awake, alert and answering questions appropriately. We discussed her symptoms from this morning compared to her visit and symptoms yesterday. According to the caregiver, she was out if it this morning and had a period of minimal responsiveness. Stroke Education reviewed again today. All questions answered. Pt to be admitted and hospitalist at the bedside. Will continue to assist as needed.
--- NOTE | 2025-01-22 12:45 | PM.IMHP ---
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 She is wheelchair bound. She presents to the ED earlier today for evaluation of altered mental status and slurred speech witnessed by her daughter. Her daughter states that earlier this morning her mother exhibited a blank stare with her head towards the right and she fell back into her wheelchair. Apparently, the patient was unable to see her daughter. This episode last for several minutes before resolving. She was seen yesterday in the ER for similar symptoms though per her daughter was more responsive following episode that she had been yesterday. In the ED yesterday, the patient was noted to be intermittently agitated with labile mood. She has had episodes of agitation at home. Denies any known history of seizures. While in the ED yesterday the MRI of the brain was negative for any acute stroke/ischemia but did show evidence of the subacute to old stroke throughout the right MCA territory watershed right MCA SUPERVISOR FRONT with global atrophy and small-vessel occlusive disease. CTA of the head was repeated today which was negative for any acute intracranial abnormality. CT of the head/neck was negative for any evidence of acute abnormality but demonstrates carotid stenosis. No large vessel occlusion. While in the ED, labs unremarkable. Urinalysis unremarkable except for elevated specific gravity. ED discuss case with Neurology recommending observation with EEG. Review of Systems Review of Systems: Yes all other systems are reviewed and are negative [facility] Medical History Multifactorial dementia Dementia with behavioral disturbance Parkinson's disease Aortic stenosis, mild Hypothyroidism Family History Sister AAA (abdominal aortic aneurysm) Surgical History Hx of colonoscopy History of hand surgery History of total hip replacement Social History Household Members: Spouse Household Members Other:: was a rehab and home for 1 day Housing: Homeless Do you presently have visiting nurse or other home services: Yes (PT) Alcohol intake: former Comment: timothy Patient Tobacco Use Status: Former Tobacco user Tobacco use type: Cigarette Cigarettes Per Day: 4 Years Smoked: 35 Smoked in Last 30 Days: No Second Hand Smoke Exposure: No Use of substances other than those prescribed or required for medical reasons: No Currently Displaying Signs/Symptoms of Drug Intoxication Withdrawal: No Have you been hit, kicked, punched, or otherwise hurt by someone within the past year? 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 Allergies Allergy/AdvReac Type Severity Reaction Status Date / Time alendronate sodium AdvReac Unknown Unknown Verified 01/22/25 10:39 [From Fosamax] Home Medications ?Medication ?Instructions ?Recorded ?Confirmed ?Last Taken ?Type levothyroxine 75 mcg tablet 75 mcg PO DAILY@0600 01/19/22 01/22/25 01/22/25 History ascorbic acid (vitamin C) 500 mg 500 mg PO DAILY 07/22/23 01/22/25 01/22/25 History tablet quetiapine 25 mg tablet 25 mg PO BEDTIME PRN Sleep 12/18/24 01/22/25 Unknown History carbidopa ER 61.25 mg-levodopa 245 1 cap PO QID 01/22/25 01/22/25 Unknown History mg capsule,extended release (Rytary) Physical Exam Vital Signs and Narrative: Vital Signs: Last Vital Signs Temp 97.3 F 01/22/25 10:37 Pulse 80 01/22/25 11:06 Resp 16 01/22/25 11:06 BP 113/60 01/22/25 11:06 Pulse Ox 97 01/22/25 11:06 O2 Del Method Room Air 01/22/25 11:06 BMI result Body Mass Index 19.8 Constitutional - Awake and Alert, No apparent distress Eyes - PERRLA, EOMI Cardiovascular - S1S2, RRR, No edema Respiratory - Normal lung expansion, Normal respiratory effort, No respiratory distress, CTA bilaterally Gastrointestinal - NT / ND; +BS; No rebound or guarding Extremities - no calf tenderness bilaterally, no swelling Skin - Warm/Dry Neurological - Alert & oriented x3, CN II-XII in tact, 4/5 strength BUE and BLE Psychological - Appropriate affect Results Labs 01/23/25 06:05 01/23/25 06:05 Labs: Laboratory Results - last 24 hr 01/22/25 01/22/25 10:34 11:00 MCV 94.9 MCH 31.5 MCHC 33.1 RDW 14.6 Plt Count 208 MPV 11.7 Immature Gran % (Auto) 0.2 Neut % (Auto) 58.7 Lymph % (Auto) 25.2 Wilkin % (Auto) 7.9 Eos % (Auto) 7.1 H Baso % (Auto) 0.9 Lymph # (Auto) 1.2 Wilkin # (Auto) 0.4 Eos # (Auto) 0.3 Baso # (Auto) 0.0 Abs Immat Gran (auto) 0.01 Absolute Neuts (auto) 2.8 Absolute Nucleated RBC 0.000 Nucleated RBC % (auto) 0.0 PT 10.7 L Whole Blood PT 11.8 INR 0.9 Whole Blood INR 1.0 APTT 31.5 Anion Gap 10 L Estim Creat Clear Calc 41.2 Estimated GFR > 60 Random Glucose 110 Calcium 9.0 Triglycerides 142 Cholesterol 169 LDL Cholesterol, Calc 94 HDL Cholesterol 47 Imaging Radiologist's Impressions: Impressions Chest X-Ray 01/22/25 10:28 IMPRESSION: Chronic interstitial lung disease. Mild interstitial lung edema cannot be excluded.. Electronically signed by: Dorian Brunner MD 01/22/2025 11:11 AM EDT RP Head CT 01/22/25 10:45 IMPRESSION: 1. No acute intracranial abnormality. No CT evidence of acute territorial infarct. Chronic white matter changes as discussed. 2. Old right parieto-occipital lobe infarct, and old bifrontal white matter infarcts. Electronically signed by: Ward Antonio MD 01/22/2025 10:58 AM EDT RP Head/Neck CTA 01/22/25 10:50 IMPRESSION: CTA NECK: 1. Approximate 50% stenosis of the right ICA at the origin secondary to mixed plaque. 2. Approximate 30% stenosis of the left ICA at the origin secondary to predominately calcific plaque. 3. Patent vertebral arteries. The left is dominant. CTA HEAD: 1. No large vessel occlusion. 2. Moderate grade focal stenosis right P1 segment SUPERVISOR FRONT, followed by a high-grade stenosis of the P1/P2 junction. The remainder of the vessel and branches appear to opacify normally. 3. 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 4. There is a no additional significant stenosis or occlusion in the intracranial circulation. Overall, no significant change from prior day. Electronically signed by: Ward Antonio MD 01/22/2025 11:15 AM EDT Assessment and Plan (1) Slurred speech: Status: Acute (2) Acute alteration in mental status: Status: Acute Plan 84-year-old female with history of multifocal dementia with behavioral disturbance, Parkinson's disease with dyskinesia, hypothyroidism, aortic stenosis, ANNIE, history embolic stroke 12/2024 to be observed for episode of altered mental status with slurred speech. #Acute encephalopathy and slurred speech -etiology unclear, ?TIA vs seizure vs worsening of multifocal dementia. unlikely to be related to infection -symptoms lasting minutes now resolved. Similar episode yesterday -MRI brain yesterday for any acute CVA. Head CT negative for acute intracranial abnormality today CTA head/neck unchanged -neuro checks, stroke education swallowing evaluation -eeg ordered -continue statin -continue DAPT -neurology consult -monitor on telemetry # foul-smelling urine -reported by RN -UA yesterday not indicative of infection. We will recheck UA #Multifocal dementia -as above -continue Seroquel # Parkinson's disease -continue Sinemet # ANNIE -CPAP # history of embolic stroke -01/08- continue DAPT # hypothyroidism -continue levothyroxine DVT prophylaxis- lovenox Full code Quality Stroke Does the patient have a stroke diagnosis?: No VTE Prior VTE?: No VTE Risk Level:: Medical - moderate - high VTE Device Contraindication: Treatment Not Indicated VTE Drug Contraindication: N/A - Med Ordered
--- NOTE | 2025-01-22 13:09 | PHA.MEDREC ---
Addendum entered by Fox Leon 01/22/25 13:28: reviewed Original Note: Pharmacy Consult ? Medication Reconciliation Pharmacy has completed the medication reconciliation. Spoke to patients daughter at bedside to confirm med list. Daughter had a list of patients medications on her phone. Patient is no longer taking Atorvastatin 40 mg, Celecoxib 100 mg , Vitamin D3 25 mcg Vitamin B-12 1,000 mg, Nicotine 2 mg Gum. Daughter states patient last took her morning medications today.
--- OUTSIDE RECORDS SUMMARY | 2025-01-22 13:48 | XMS_ITS ---
[facility] Organization [facility] Address [address] [place] [address] Care Team Providers Care Brand Advocate Name Role Phone Omar Sui MD Primary Care Provider Karla Urias Unavailable [phone] Allergies No Known Allergies REASON FOR VISIT [...] Ordered Date Performed Result Body Sit e 84203-HCNCFPG NAIL, 6 OR MORE 12/10/2024 N/A Encounters Encounter Location Date Provider Diagnosis [facility] [place] [address] [place] [address] 12/10/2024 Karla Miles Pain in right toe(s) M79.674 ; Onychomycosis B35.1 and Pain in left toe(s) M79.675 Assessments Encounter Date Diagnosis (ICD Code) Assessment Notes Treatment Notes Treatment Clinical Notes Section Notes 12/10/2024 Pain in right toe(s) (ICD-10 - M79.674) 12/10/2024 Onychomycosis (ICD-10 - B35.1) 12/10/2024 Pain in left toe(s) (ICD-10 - M79.675) Plan Of Treatment Pending Test Test Name Order Date 36297-DZTEKHT NAIL, 6 OR MORE 12/10/2024 Next Appt Details Follow Up: 3 Months, Reason: Provider Name:Karla young, 04/01/2025 03:15:00 PM, [address] [place] [address], [phone], Procedure Notes * Category Sub-Category Detail Notes [...] use of a nail nipper and/or dremel-type diamond grinder, to a more viable healthy nail [...] to maintain effectiveness in symptomatic relief - 32148 Progress Notes * Suzan LINDO NDOB:[birth year] (84 yo F)Acc No.[id number]:12/10/2024 Progress Note Patient:?Suzan LINDO N Provider:?Karla Miles DPM :1940???Age:84 Y???Sex:Female D ate:12/10/2024 Address:[address] [place], [place] [id number] Pcp:Omar Siu MD Subjective: * Chief Complaints: [...] in Driveway. ?Marital status: . 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 ?Occupational exposure: none. * Medications:?TakingCarbidopa -Levodopa [...] use of a nail nipper and/or dremel-type diamond grinder, to a more viable healthy nail [...] to maintain effectiveness in symptomatic relief - 28020.? * Procedure Codes:?76129 DEBRI DE NAIL, 6 OR MORE * Follow Up:?3 Months * Images: * Sign off status: Completed true * Provider:?Karla Miles DPM Date:?0 12/10/2024 Generated for Lindy dalton/Elisha/Pavelitting on:?01/22/2025 01:48 PM EDT History and Physical Notes * [...]
--- OUTSIDE RECORDS SUMMARY | 2025-01-22 13:48 | XMS_ITS | Patient Health Record ---
Author Organization [facility] Address [address] [place] [address] Care Team Providers Care Quality Manager Name Role Phone Omar Siu MD Primary Care Provider Karla Urias Unavailable [phone] [address] Arellano Unavailable [phone] Allergies No Known Allergies Reason For Referral [...] W/U Status Risk Notes Problem Tinea unguium (138876590) Tinea unguium (B35.1) Active confirmed Problem Non-pressure chronic ulcer of other part of right foot with fat layer exposed (L97.512) Active confirmed Problem Bilateral atherosclerosis of arteries of lower limbs (disorder) (21370364393936815 ) Unspecified atherosclerosis of penobscot arteries of extremities, bilateral legs (I70.203) Active confirmed Problem Acquired hallux valgus (12171601) Hallux valgus (acquired), right foot (M20.11) Active confirmed Problem Non-pressure chronic ulcer of other part of left foot limited to breakdown of skin (L97.521) Active confirmed Problem Non-pressure chronic ulcer of other part of right foot limited to breakdown of skin (L97.511) Active confirmed Problem Acquired hammer toe of right foot (4874051966959423) Other hammer toe(s) (acquired), right foot (M20.41) Active confirmed Problem Acquired hammer toe of left foot (3092954562111998) Other hammer toe(s) (acquired), left foot (M20.42) Active confirmed Problem 02217994 Parkinson diseas e (G20) Active confirmed Vital Signs Blood pressure diastolic 80 mm Hg 12/10/2024 Height 5 ft 3 in in 12/10/2024 Blood pressure systolic 120 mm Hg 12/10/2024 Weight 118 lbs 12/10/2024 BMI 20.9 kg/m2 12/10/2024 Procedures Procedure Date Ordered Date Performed Result Body Sit e 75220-UTUYTWV NAIL, 6 OR MORE 12/10/2024 N/A Encounters Encounter Location Date Provider Diagnosis [facility] [place] [address] [place] [address] 03/05/2024 Lane Arellano Tinea unguium B35.1 ; Pain in right toe(s) M79.674 ; Pain in left toe(s) M79.675 ; Unspecified atherosclerosis of penobscot arteries of extremities, bilateral legs I70.203 ; Other hammer toe(s) (acquired), left foot M20.42 ; Other hammer toe(s) (acquired), right foot M20.41 and Hallux valgus (acquired), right foot M20.[address] [address] 06/04/2024 Lane Arellano Tinea unguium B35.1 ; Pain in right toe(s) M79.674 ; Pain in left toe(s) M79.675 ; Unspecified atherosclerosis of penobscot arteries of extremities, bilateral legs I70.203 ; Other hammer toe(s) (acquired), left foot M20.42 ; Other hammer toe(s) (acquired), right foot M20.41 and Hallux valgus (acquired), right foot M20.[address] [address] 09/13/2024 Lane Arellano Tinea unguium B35.1 ; Pain in right toe(s) M79.674 ; Pain in left toe(s) M79.675 ; Unspecified atherosclerosis of penobscot arteries of extremities, bilateral legs I70.203 ; Other hammer toe(s) (acquired), left foot M20.42 ; Other hammer toe(s) (acquired), right foot M20.41 and Hallux valgus (acquired), right foot M20.[address] [address] 12/10/2024 Karla Miles Pain in right toe(s) [...] (ICD-10 - M79.675) 03/05/2024 Unspecified atherosclerosis of penobscot arteries of extremities, bilateral legs (ICD-10 - I70.203) 06/04/2024 Pain in left toe(s) (ICD-10 - M79.675) 09/13/2024 Unspecified atherosclerosis of penobscot arteries of extremities, bilateral legs (ICD-10 - I70.203) 12/10/2024 Pain in left toe(s) (ICD-10 - M79.675) 09/13/2024 Other hammer toe(s) (acquired), left foot (ICD-10 - M20.42) 06/04/2024 Unspecified atherosclerosis of penobscot arteries of extremities, bilateral legs (ICD-10 - [...] X ray : Foot, right 3V 07/07/2022 75593-NYNFVWB NAIL, 6 OR MORE 12/10/2024 13499-OYTMXJC NAIL, 6 OR MORE 02/01/2018 83274-GDQRXJM NAIL, 6 OR MORE 10/16/2018 43118-OHQBNBK NAIL, 6 OR MORE 07/05/2018 96307-DVPKXYX NAIL, -5 08/31/2017 01125-ITWZCXA NAIL, -11/23/2017 32642-QDOUXXI NAIL, -06/05/2015 48231-EDVGPIW NAIL, -10/06/2015 51131-USRPDKU NAIL, -03/10/2016 32422-ZEZCCAE NAIL, -07/07/2016 82041-JTNOHIB NAIL, -11/01/2016 27300-YMYYNHE NAIL, -02/21/2017 86960-GVRVZXD NAIL, -05/23/2017 52542-Jzwg Destruction, 11-2705/23/2017 81284-Pqri Destruction, 11-2708/12/2017 56150-Yemk Destruction, -02/21/2017 75613-Alqd Destruction, -14 11/01/2016 16974-Akcc Destruction, -14 07/07/2016 14374-Dbkl Destruction, -14 03/10/2016 06196-Fevd Destruction, -14 10/06/2015 47836-Ydbv Destruction, -14 06/05/2015 72133-Ywdq Destruction, -14 11/23/2017 14803-Vnju Destruction, 14 08/31/2017 14282-Dtwc Destruction, 14 02/01/2018 63852-Yeia Destruction, -14 05/03/2018 86539-Qpxl Destruction, -14 07/05/2018 80554-Tneh Destruction, -14 10/16/2018 94721-Wzvh Destruction, 11-2703/20/2020 50085- Debride <25 sq cm 01/26/2012 53721- Debride <25 sq cm 02/24/2012 92072- Debride <25 sq cm 05/10/2012 40569- Debride <25 sq cm 12/10/2021 05661-XKQHILU SKIN/TISSUE 07/07/2022 83353 I&D ABSCESS- SIMPLE,SINGLE 022 00882-WIOW SKIN LESIONS, OVER 4 08/04/20 20212-MTUQ SKIN LESIONS, 2 TO 4 12/10/19 73849-ADZU SKIN LESIONS, 2 TO 4 11/26/19 54717-OSCU SKIN LESIONS, 2 TO 4 03/11/20 72855-PLHC SKIN LESIONS, 2 TO 4 06/10/20 07855-SESC SKIN LESIONS, 2 TO 4 09/09/20 05790- Removal of Foreign Body, Subcut 0 06/10/2021 28077- Nail Unit Biopsy 05/03/2018 Next Appt Details Provider Name:Karla Walker hector, 04/01/2025 03:15:00 PM, [address] [place], [address], Insurance Providers Payer Name Payer Address Payer Phone Subscriber Number Group Number Insured Name Patient Relationship to Insured Coverage Start Date Coverage End Date Medicare National Govt Sv[employer] [address] [place] [address] [phone] [id number] Suzan Lindo Self - patient is the insured [employer]) [address] [place] [address] [id number] Suzan Lindo Self - patient is the insured Medical (General) History Medical History History ICD Code thyroid disorder Parkinsons disease Surgical History Surgery Date(Month/Year) left hip surgery - [place] [facility] [place] cataracts 04/2019, 05/2019 L Hand Surgery 08/2022 Hospitalization History Reason Date(Month/Year)
--- OUTSIDE RECORDS SUMMARY | 2025-01-22 13:48 | XMS_ITS ---
Author Organization [facility] Address [address] [place] [address] Care Team Providers Care Roller Printing Supervisor Name Role Phone Omar Siu MD Primary Care Provider Karla Urias Unavailable [phone] Unavailable [phone] Allergies No Known Allergies REASON FOR VISIT [...] 09/13/2024 Encounters Encounter Location Date Provider Diagnosis [facility] [place] [address] [place] [address] 09/13/2024 Lane Arellano Tinea unguium B35.1 ; Pain in right toe(s) M79.674 ; Pain in left toe(s) M79.675 ; Unspecified atherosclerosis of tanana arteries of extremities, bilateral legs I70.203 ; [...] (ICD-10 - M79.675) 09/13/2024 Unspecified atherosclerosis of tanana arteries of extremities, bilateral legs (ICD-10 - I70.203) 09/13/2024 Other hammer toe(s) (acquired), left foot (ICD-10 - M20.42) 09/13/2024 Other hammer toe(s) (acquired), right foot (ICD-10 - M20.41) 09/13/2024 Hallux valgus (acquired), right foot (ICD-10 - M20.11) Plan Of Treatment Next Appt Details Follow Up: 3 Months, Reason: Provider Name:Karla young, 04/01/2025 03:15:00 PM, [address] [place] [address], [phone], Procedure Notes * Category Sub-Category Detail Notes [...] as necessary. Patient chooses, no pharmaceutical tx (02270) Progress Notes * Suzan LINDO NDOB:[birth year] (84 yo F)Acc No.[id number]:09/13/2024 Progress Note Patient:?Suzan Lindo N Provider:?Lane Arellano DPM :1940???Age:84 Y???Sex:Female D ate:09/13/2024 Address:[address] [place] [address] [id number] Pcp:Omar Siu MD Subjective: * Chief Complaints: [...] in Driveway. ?Marital status: . 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 ?Occupational exposure: none. * Medications:?TakingCarbidopa -Levodopa [...] in left toe(s) - M79.675?4.?Unspecified atherosclerosis of tanana arteries of extremities, bilateral legs - I70.203?5.?Other [...] as necessary. Patient chooses, no pharmaceutical tx (36371).? * Procedure Codes:?53619 DEBRI DE NAIL, 6 OR MORE, Modifiers: XS * Follow Up:?3 Months * Images: * Sign off status: Completed true * Provider:?Lane Arellano DPM Date:? 024 Generated for Lindy dalton/Elisha/Pavelitting on:?01/22/2025 01:48 PM [...]
--- OUTSIDE RECORDS SUMMARY | 2025-01-22 13:48 | XMS_ITS ---
Author Organization [facility] Address [address] [place] [address] Care Team Providers Care Concrete Stone Finisher Name Role Phone Omar Siu MD Primary Care Provider Karla Urias Unavailable [phone] [address] Arellano Unavailable [phone] Allergies No Known Allergies REASON FOR VISIT [...] 024 Encounters Encounter Location Date Provider Diagnosis [facility] [place] [address] [place] [address] 06/04/2024 [address] Arellano Tinea unguium B35.1 ; Pain in right toe(s) M79.674 ; Pain in left toe(s) M79.675 ; Unspecified atherosclerosis of false pass arteries of extremities, bilateral legs I70.203 ; [...] (ICD-10 - M79.675) 06/04/2024 Unspecified atherosclerosis of false pass arteries of extremities, bilateral legs (ICD-10 - I70.203) 06/04/2024 Other hammer toe(s) (acquired), left foot (ICD-10 - M20.42) 06/04/2024 Other hammer toe(s) (acquired), right foot (ICD-10 - M20.41) 06/04/2024 Hallux valgus (acquired), right foot (ICD-10 - M20.11) Plan Of Treatment Next Appt Details Follow Up: 2 Months, 3 Month s, Reason: Provider Name:Karla young, 04/01/2025 03:15:00 PM, [address] [place], [address], Procedure Notes * Category Sub-Category Detail Notes [...] as necessary. Patient chooses, no pharmaceutical tx (25056) Keratoma Treatment Parring or Cutting o f Benign Hyperkeratotic Lesion(s) 56551 ( >4 Lesions) - The Benign hyperkeratotic lesions, as described above were pared, and/or cut utilizing a sterile #15 blade, tissue nippers, and/or dremel, Q8 Progress Notes * Suzan LINDO NDOB:[birth year] (83 yo F)Acc No.[id number]:06/04/2024 Progress Note Patient:?Suzan Lindo N Provider:?Lane Arellano DPM :1940???Age:83 Y???Sex:Female D ate:06/04/2024 Address:[address] [place], [place] [id number] Pcp:Omar Siu MD Subjective: * Chief Complaints: [...] in Driveway. ?Marital status: . 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 ?Occupational exposure: none. * Medications:?TakingCarbidopa -Levodopa [...] in left toe(s) - M79.675?4.?Unspecified atherosclerosis of false pass arteries of extremities, bilateral legs - I70.203?5.?Other [...] as necessary. Patient chooses, no pharmaceutical tx (43313).?Keratoma Treatment:?Parring or Cutting of Benign Hyperkeratotic Lesion(s)?50503 ( >4 Lesions) - The Benign hyperkeratotic lesions, as described above were pared, and/or cut utilizing a sterile #15 blade, tissue nippers, and/or dremel, Q8.? * Procedure Codes:?00594 DEBRI DE NAIL, 6 OR MORE, Modifiers: XS 51975 TRIM SKIN LESIONS, OVER 4, Modifiers: Q8 * Follow Up:?2 Months, 3 Month s * Images: * Sign off status: Completed true * Provider:?Lane Arellano DPM Date:? 024 Generated for Lindy dalton/Elisha/eTransmitting on:?01/22/2025 01:48 PM EDT History and Physical [...]
[2025-01-22] MEDS: Enoxaparin Sodium 40 MG/0.4 ML SYRINGE SUBCUT (14:10)
[2025-01-22 15:03] VITALS: BP 127/76; PULSE 82; RESP 15; TEMP 36.6; O2SAT 96
[2025-01-22 15:23] LABS: Glucose, Whole Blood 90 mg/dL (60-115)
[2025-01-22] MEDS: 0.9 % Sodium Chloride Flush 3 ML SYRINGE IVFLUSH (17:16)
--- NOTE | 2025-01-22 17:31 | PC.NURSE ---
pts home meds sent down to pharmacy for verification
[2025-01-22 18:32] VITALS: BP 137/63; PULSE 72; RESP 16; TEMP 37.2; O2SAT 97
[2025-01-22 19:33] VITALS: BP 139/63; PULSE 87; RESP 18; TEMP 36.3; O2SAT 97
[2025-01-22 23:35] VITALS: BP 142/70; PULSE 91; RESP 16; TEMP 36.5; O2SAT 94
[2025-01-23] MEDS: 0.9 % Sodium Chloride Flush 3 ML SYRINGE IVFLUSH
[2025-01-23 03:25] VITALS: BP 136/65; PULSE 89; RESP 18; TEMP 36.5; O2SAT 97
[2025-01-23] MEDS: Levothyroxine Sodium 75 MCG TABLET PO (05:50)
[2025-01-23 06:42] LABS: MANUAL DIFF FLAG NO
[2025-01-23 07:02] LABS: Anion Gap 10 (12-20); Blood Urea Nitrogen 15 mg/dL (9-16); Calcium 8.9 mg/dL (8.4-10.2); Carbon Dioxide 21 mmol/L (22-29); Chloride 115 mmol/L (96-108); Creatinine Clr Calc Pharmacy 53.2; Estimated Glomerular Filt Rate > 60; Glucose Random 72 mg/dL (60-115); Potassium 3.8 mmol/L (3.3-5.1); Sodium 142 mmol/L (135-145)
[2025-01-23 07:12] LABS: Basophils Absolute Auto 0.1 X10*3/uL (0.0-0.2); Basophils Percent Auto 0.9 % (0-2); Eosinophils Absolute Auto 0.3 X10*3/uL (0.0-0.4); Eosinophils Percent Auto 6.4 % (0-4); Hematocrit 34.4 % (37.0-47.0); Hemoglobin 11.1 g/dl (12.0-16.0); Imm Gran Abs Auto 0.02 X10*3/uL (0.00-0.03); Imm Gran Pct Auto 0.4 % (0.0-0.4); Lymphocytes Absolute Auto 1.2 X10*3/uL (1.2-4.9); Mean Corpuscular HGB Conc 32.3 g/dl (31.0-35.0); Mean Corpuscular Hemoglobin 30.7 pg (27.0-33.0); Mean Corpuscular Volume 95.3 fL (80.0-98.0); Mean Platelet Volume 11.9 fL (9.4-12.3); Monocytes Absolute Auto 0.4 X10*3/uL (0.1-1.2); Monocytes Percent Auto 7.9 % (2-11); Neutrophils Absolute Auto 3.3 x10*3/uL (2.0-8.3); Neutrophils Percent Auto 61.4 % (45-73); Platelet Count 200 X10*3/uL (160-400); Red Blood Count 3.61 X10*6/uL (4.20-5.50); Red Cell Distribution Width 14.6 % (11.0-16.0); White Blood Count 5.3 X10*3/uL (4.8-10.8)
[2025-01-23 07:23] VITALS: BP 114/66; PULSE 85; RESP 18; TEMP 36.8; O2SAT 99
--- NOTE | 2025-01-23 08:38 | MHC.CM.PN ---
Patient is here with Multifocal Dementia and AMS; CM spike with /HCP/Jacobo at [phone] and addressed SCHNEIDER with him (original will be mailed to and a copy has been placed on the chart). Patient lives in a house with her and she is w/c bound; her Daughter/marylin assists with her care. Patient is active with [facility] and home/resume said services is the goal. CM has initiated and will follow for dc planning. PCP is Dr. Omar Siu and will transport to home at dc.
--- NOTE | 2025-01-23 09:40 | PM.NEUROCN ---
History of Present Illness Data of Consult Service Date: 01/23/25 Primary Care Provider: Omar Siu MD [facility] Reason for consult: Change in mental status 84 years old woman with underlying history of Parkinson's disease who probably has underlying multifactorial dementia resulting in physical and cognitive dysfunction came to hospital with an episode of slurred speech and confusion. Symptoms were mostly resolved when she arrived in emergency room and acute stroke was not consideration. She was admitted for possible seizure disorder. She said that she partly remember what happened. She was trying to talk and could not talk properly and everything seem different for a while. She denied any headache. Review of Systems Review of Systems: No recent cold or flu-like illness PMFSH Past Medical History Medical History Multifactorial dementia Dementia with behavioral disturbance Parkinson's disease Aortic stenosis, mild Hypothyroidism Family History Family History Sister AAA (abdominal aortic aneurysm) Surgical History Surgical History Hx of colonoscopy History of hand surgery History of total hip replacement Social History Social History Household Members: Spouse Household Members Other:: was a rehab and home for 1 day Housing: Homeless Do you presently have visiting nurse or other home services: Yes (PT) Alcohol intake: former Comment: pamelater Patient Tobacco Use Status: Former Tobacco user Tobacco use type: Cigarette Cigarettes Per Day: 4 Years Smoked: 35 Smoked in Last 30 Days: No Second Hand Smoke Exposure: No Use of substances other than those prescribed or required for medical reasons: No Currently Displaying Signs/Symptoms of Drug Intoxication Withdrawal: No Have you been hit, kicked, punched, or otherwise hurt by someone within the past year? 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 Allergies Allergy/AdvReac Type Severity Reaction Status Date / Time alendronate sodium AdvReac Unknown Unknown Verified 01/22/25 10:39 [From Fosamax] Active Medications: Current Medications Acetaminophen (Acetaminophen 325 Mg Tablet) 650 mg PO Q6H PRN PRN Reason: Pain, Mild 1-3,fever,headache Ascorbic Acid (Ascorbic Acid 500 Mg Tablet) 500 mg PO DAILY [facility] Aspirin (Aspirin 81 Mg Tab.Chew) 81 mg PO DAILY [facility] Calcium Carbonate (Calcium Carbonate 750 Mg Tab.Chew) 750 mg PO Q4H PRN PRN Reason: Heartburn Clopidogrel Bisulfate (Clopidogrel Bisulfate 75 Mg Tablet) 75 mg PO DAILY [facility] Enoxaparin Sodium (Enoxaparin Sodium 40 Mg/0.4 Ml Syringe) 40 mg SUBCUT Q24H [facility] Last Admin: 01/22/25 14:10 Dose: 40 mg Levothyroxine Sodium (Levothyroxine Sodium 75 Mcg Tablet) 75 mcg PO DAILY@0600 [facility] Last Admin: 01/23/25 05:50 Dose: 75 mcg Magnesium Hydroxide (Milk Of Magnesia 30 Ml Oral.Susp) 30 ml PO DAILY PRN PRN Reason: Constipation Melatonin (Melatonin 3 Mg Tablet) 6 mg PO BEDTIME PRN PRN Reason: Insomnia Pt Own (Carbidopa- Levodopa [Rytary] 61 .25-245 Mg Capsule, Extended Relea 1 cap PO QID [facility] Last Admin: 01/22/25 21:10 Dose: 1 cap Pt Own (Selegiline (Hcl 5 Mg Tablet)) 5 mg PO BID [facility] Last Admin: 01/22/25 21:10 Dose: 5 mg Quetiapine Fumarate (Quetiapine Fumarate 25 Mg Tablet) 25 mg PO BEDTIME PRN PRN Reason: Sleep Sodium Chloride (0.9 % Sodium Chloride Flush 3 Ml Syringe) 3 ml IVFLUSH QSHIFT [facility] Last Admin: 01/23/25 09:29 Dose: Not Given Home Medications ?Medication ?Instructions ?Recorded ?Confirmed ?Last Taken ?Type levothyroxine 75 mcg tablet 75 mcg PO DAILY@0600 01/19/22 01/22/25 01/22/25 History ascorbic acid (vitamin C) 500 mg 500 mg PO DAILY 07/22/23 01/22/25 01/22/25 History tablet quetiapine 25 mg tablet 25 mg PO BEDTIME PRN Sleep 12/18/24 01/22/25 Unknown History carbidopa ER 61.25 mg-levodopa 245 1 cap PO QID 01/22/25 01/22/25 Unknown History mg capsule,extended release (Rytary) Physical Exam Vital Signs: Vital Signs: Last Vital Signs Temp 98.3 F 01/23/25 07:23 Pulse 85 01/23/25 07:23 Resp 18 01/23/25 07:23 BP 114/66 01/23/25 07:23 Pulse Ox 99 01/23/25 07:23 O2 Del Method Room Air 01/23/25 07:23 BMI result Body Mass Index 19.8 Neuro: Other: She is alert and awake with normal spontaneity of speech fluency comprehension and affect. She is having moderately severe dyskinetic movements of head done arms. Deep tendon reflexes are absent with flexor plantars. Facial expression blinking or diminished. Results Labs 01/23/25 06:05 01/23/25 06:05 Labs: Short CBC 01/22/25 01/23/25 Range/Units 10:34 06:05 WBC 4.7 L 5.3 (4.8-10.8) X10*3/uL Hgb 11.7 L 11.1 L (12.0-16.0) g/dl Hct 35.3 L 34.4 L (37.0-47.0) % Plt Count 208 200 (160-400) X10*3/uL BMP 01/22/25 01/23/25 10:34 06:05 Sodium 141 142 Potassium 3.9 3.8 Chloride 113 H 115 H Carbon Dioxide 22 21 L BUN 19 H 15 Creatinine 0.89 0.69 Calcium 9.0 8.9 Assessment and Plan (1) Acute alteration in mental status: Status: Acute 84 years old woman with underlying multifactorial degenerative +vascular dementia/parkinsonism complex was admitted for an episode of alteration of consciousness and speech. Overall presentation is suggestive of seizure disorder. EEG is recommended. Otherwise her baseline Parkinson's medicines can continue despite having some dyskinetic movements. Procedures Date of Service Date of Service: 01/23/25
[2025-01-23] MEDS: Ascorbic Acid 500 MG TABLET PO (10:34)
[2025-01-23] MEDS: Clopidogrel Bisulfate 75 MG TABLET PO (10:34)
[2025-01-23] MEDS: Aspirin 81 MG TAB.CHEW PO (10:34)
--- NOTE | 2025-01-23 10:47 | P.DS_ITS ---
DS: Providers Provider Date of Service: 01/23/25 Date of admission: 01/22/25 12:45 Date of discharge: 01/23/25 Primary care physician: Omar Siu MD Consults: 01/22/25 12:45 Consult to Neurology Routine Consulting Provider: 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 She is wheelchair bound. She presents to the ED earlier today for evaluation of altered mental status and slurred speech witnessed by her daughter. Her daughter states that earlier this morning her mother exhibited a blank stare with her head towards the right and she fell back into her wheelchair. Apparently, the patient was unable to see her daughter. This episode last for several minutes before resolving. She was seen yesterday in the ER for similar symptoms though per her daughter was more responsive following episode that she had been yesterday. In the ED yesterday, the patient was noted to be intermittently agitated with labile mood. She has had episodes of agitation at home. Denies any known history of seizures. 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 CTA of the head was repeated today which was negative for any acute intracranial abnormality. CT of the head/neck was negative for any evidence of acute abnormality but demonstrates carotid stenosis. No large vessel occlusion. While in the ED, labs unremarkable. Urinalysis unremarkable except for elevated specific gravity. ED discuss case with Neurology recommending observation with EEG. hospital course: She was admitted monitoed with neuro check and no evidence of stroke, CT head and CTA of head and neck were negative for acute stroke. She's at her baseline now. Neurology is recommending EEG for possible seizure, in the end patient thought to have TIA Time Attestation Discharge Coordination Time (in mins): 35 Quality: Safe Use of Opioids Does Pt have an Active Cancer Diagnosis on the Problem List?: No Quality: Stroke Does the patient have a stroke diagnosis?: No Physical Exam Vital Signs: Vital Signs: Last Vital Signs Temp 98.3 F 01/23/25 07:23 Pulse 85 01/23/25 07:23 Resp 18 01/23/25 07:23 BP 114/66 01/23/25 07:23 Pulse Ox 99 01/23/25 07:23 O2 Del Method Room Air 01/23/25 07:23 BMI result Body Mass Index 19.8 Const: Other: General: AO X 3, no acute distress Resp: CTA bilateral CVS: S1,S2,RRR GI: +BS, NT, no distention Skin: No rash Neuro: motor grossly intact Psych: appropriate affect DS: Data Data Completed and Pending Completed studies during hospitalization [Text1]: Procedures Reposition Right Lower Femur with Intramedullary Internal Fixation Device, Percutaneous Approach (07/23/23) Reposition Right Upper Femur with Intramedullary Internal Fixation Device, Percutaneous Approach (05/26/23) Transfusion of Nonautologous Red Blood Cells into Peripheral Vein, Percutaneous Approach (05/26/23) Labs on day of discharge: Laboratory Results - last 24 hr 01/22/25 01/22/25 01/22/25 10:27 10:34 11:00 WBC 4.7 L RBC 3.72 L Hgb 11.7 L Hct 35.3 L MCV 94.9 MCH 31.5 MCHC 33.1 RDW 14.6 Plt Count 208 MPV 11.7 Immature Gran % (Auto) 0.2 Neut % (Auto) 58.7 Lymph % (Auto) 25.2 [place] % (Auto) 7.9 Eos % (Auto) 7.1 H Baso % (Auto) 0.9 Lymph # (Auto) 1.2 [place] # (Auto) 0.4 Eos # (Auto) 0.3 Baso # (Auto) 0.0 Abs Immat Gran (auto) 0.01 Absolute Neuts (auto) 2.8 Absolute Nucleated RBC 0.000 Nucleated RBC % (auto) 0.0 PT 10.7 L Whole Blood PT 11.8 INR 0.9 Whole Blood INR 1.0 APTT 31.5 Sodium 141 Potassium 3.9 Chloride 113 H Carbon Dioxide 22 Anion Gap 10 L BUN 19 H Creatinine 0.89 Estim Creat Clear Calc 41.2 Estimated GFR > 60 POC Glucose 90 Random Glucose 110 Calcium 9.0 Troponin I High Sens < 2.7 Triglycerides 142 Cholesterol 169 LDL Cholesterol, Calc 94 HDL Cholesterol 47 01/23/25 06:05 WBC 5.3 RBC 3.61 L Hgb 11.1 L Hct 34.4 L MCV 95.3 MCH 30.7 MCHC 32.3 RDW 14.6 Plt Count 200 MPV 11.9 Immature Gran % (Auto) 0.4 Neut % (Auto) 61.4 Lymph % (Auto) 23.0 [place] % (Auto) 7.9 Eos % (Auto) 6.4 H Baso % (Auto) 0.9 Lymph # (Auto) 1.2 [place] # (Auto) 0.4 Eos # (Auto) 0.3 Baso # (Auto) 0.1 Abs Immat Gran (auto) 0.02 Absolute Neuts (auto) 3.3 Absolute Nucleated RBC 0.000 Nucleated RBC % (auto) 0.0 PT Whole Blood PT INR Whole Blood INR APTT Sodium 142 Potassium 3.8 Chloride 115 H Carbon Dioxide 21 L Anion Gap 10 L BUN 15 Creatinine 0.69 Estim Creat Clear Calc 53.2 Estimated GFR > 60 POC Glucose Random Glucose 72 Calcium 8.9 Troponin I High Sens Triglycerides Cholesterol LDL Cholesterol, Calc HDL Cholesterol Discharge Plan Discharge Anticipated Discharge Date/Time: 01/23/25 15:55 Patient Disposition: Home Health Service Discharge Diagnosis: Altered mental status, proable tia Referrals: [facility] [Outside] - 1 Week Omar Siu MD [Primary Care Provider] - 1 Week Discharge Medications: Continued selegiline HCl 5 mg tablet 5 mg PO BID 30 Days Qty: 60 6RF quetiapine 25 mg tablet 25 mg PO BEDTIME PRN (Reason: Sleep) clopidogrel 75 mg Tablet 75 mg PO DAILY Qty: 30 0RF aspirin 81 mg Tablet,Chewable 81 mg PO DAILY Qty: 30 0RF Rytary 61.25-245 mg capsule, extended release 1 cap PO QID ascorbic acid (vitamin C) 500 mg Tablet 500 mg PO DAILY levothyroxine 75 mcg tablet 75 mcg PO DAILY@0600 Discharge Orders: Discharge Order (Routine); Ordered 01/23/25 Ordered By: Houston Cha Diet: Advance to usual diet Activity on Discharge: As tolerated Stand Alone Forms: Patient Portal Discharge page Print Language: Swazi Care Plan Goals: recovery from altered mental status, slur speech and likely TIA Health Concerns: TIA Plan of Treatment: resume all your previous medications Assessment: see above Discharge Date/Time: 01/23/25 16:56
[2025-01-23 11:08] VITALS: BP 97/54; PULSE 89; RESP 20; TEMP 37.1; O2SAT 99
--- NOTE | 2025-01-23 13:45 | MHC.CM.PN ---
CM met with Patient, her /HCP/Jacobo and her Daughter at bedside; they have expressed an interest in Hospice services. Plan is for Daughter to get back in touch with CM when they know which Hospice they would like to choose. CM will follow.'s cell is [phone].
[2025-01-23] MEDS: Enoxaparin Sodium 40 MG/0.4 ML SYRINGE SUBCUT (13:57)
[2025-01-23 16:00] VITALS: BP 106/52; PULSE 96; RESP 18; TEMP 36.9; O2SAT 96
--- NOTE | 2025-01-23 16:11 | MHC.CM.PN ---
Patient has been medically cleared for dc to home, with services. Patient is active with [facility], who has been made aware of today;'s dc.
== END 2025-01-23 16:56 | disposition home health service (06) ==
LOC: HO.ED 11:49 → HO.EDOVER 12:59 → HO.IMC 16:55
PROVIDERS: Admitting Provider Physician Assistant; Emergency Provider Student in an Organized Health Care Education/Training Program; PCP Family Medicine; Visit Provider Internal Medicine
DX: R41.82 Altered mental status, unspecified (principal); R47.81 Slurred speech; R44.3 Hallucinations, unspecified; G20.A1 Parkinson's disease without dyskinesia, without mention of fluctuations; F02.818 Dementia in other diseases classified elsewhere, unspecified severity, with other behavioral disturbance; I35.0 Nonrheumatic aortic (valve) stenosis; G47.33 Obstructive sleep apnea (adult) (pediatric); Z99.3 Dependence on wheelchair; Z79.899 Other long term (current) drug therapy; Z86.73 Personal history of transient ischemic attack (TIA), and cerebral infarction without residual deficits; Z79.01 Long term (current) use of anticoagulants
CPT/HCPCS: 36415; 70450; 70496; 70498; 71045; 80048; 80061; 82947; 84484; 85025; 85610; 85730; 93005; 95816; 96360; 96372; 99222; 99285; J1650; Q9967

== ENCOUNTER → 2025-01-22 10:28 | Outpatient (BNV) | payer MEDICARE, OTHER, SELFPAY | PROVIDERS: Admitting Provider Physician Assistant; Emergency Provider Student in an Organized Health Care Education/Training Program; PCP Family Medicine; Visit Provider Internal Medicine | DX: R94.31 Abnormal electrocardiogram [ECG] [EKG] (principal) | CPT/HCPCS: 93010 ==

== ENCOUNTER → 2025-01-22 10:28 | Outpatient (BNV) | payer MEDICARE, OTHER, SELFPAY | PROVIDERS: Emergency Provider Student in an Organized Health Care Education/Training Program; Visit Provider Radiology Diagnostic Radiology | DX: I65.23 Occlusion and stenosis of bilateral carotid arteries (principal); R47.81 Slurred speech; J84.9 Interstitial pulmonary disease, unspecified | CPT/HCPCS: 70450; 70496; 70498; 71045 ==

== ENCOUNTER → 2025-01-22 12:45 | Outpatient (BNV) | payer MEDICARE, OTHER, SELFPAY | PROVIDERS: Admitting Provider Physician Assistant; Emergency Provider Student in an Organized Health Care Education/Training Program; PCP Family Medicine; Visit Provider Psychiatry & Neurology Neurology | DX: R41.82 Altered mental status, unspecified (principal) | CPT/HCPCS: 99222 ==

== ENCOUNTER → 2025-01-22 12:45 | Outpatient (BNV) | payer MEDICARE, OTHER, SELFPAY | PROVIDERS: Admitting Provider Physician Assistant; Emergency Provider Student in an Organized Health Care Education/Training Program; PCP Family Medicine; Visit Provider Physician Assistant | DX: R47.81 Slurred speech (principal); R41.82 Altered mental status, unspecified | CPT/HCPCS: 99223 ==

== ENCOUNTER 2025-01-24 10:45 | Emergency (ER) | payer MEDICARE, OTHER, SELFPAY ==
[2025-01-24 10:47] VITALS: BP 133/68; PULSE 88; RESP 16; TEMP 36; O2SAT 95; BMI 20.4
[2025-01-24 11:08] VITALS: BP 133/68; PULSE 88; RESP 16; TEMP 36; O2SAT 95
--- NOTE | 2025-01-24 12:06 | ED_ITS ---
HPI - General Adult General Chief complaint: General Medical Stated complaint: Bleeding, seen recently Time Seen by Provider: 01/24/25 12:06 Source: patient and family ( Health caregiver) Mode of arrival: ambulatory Limitations: no limitations History of Present Illness ED Provider: DR. Guevara HPI narrative: 84-year-old female brought in by her caregiver from home for evaluation of bleeding IV site, patient was discharged from the hospital yesterday had 2 IV access is to both arms removed before discharge, returned today for persistent bleeding from the left arm IV site caregiver can not stop the bleed. Patient take Plavix at home otherwise no anticoagulation therapy, no dizziness, no chest pain, no headache,no blurry vision. Related Data Home Medications ?Medication ?Instructions ?Recorded ?Confirmed levothyroxine 75 mcg tablet 75 mcg PO DAILY@0600 01/19/22 01/22/25 ascorbic acid (vitamin C) 500 mg 500 mg PO DAILY 07/22/23 01/22/25 tablet quetiapine 25 mg tablet 25 mg PO BEDTIME PRN Sleep 12/18/24 01/22/25 carbidopa ER 61.25 mg-levodopa 245 1 cap PO QID 01/22/25 01/22/25 mg capsule,extended release (Rytary) Previous Rx's ?Medication ?Instructions ?Recorded selegiline HCl 5 mg tablet 5 mg PO BID 30 days #60 tabs 12/17/24 aspirin 81 mg chewable tablet 81 mg PO DAILY #30 tabs 12/21/24 clopidogrel 75 mg tablet 75 mg PO DAILY #30 tabs 12/21/24 Allergies Allergy/AdvReac Type Severity Reaction Status Date / Time alendronate sodium AdvReac Unknown Unknown Verified 01/24/25 10:51 [From [employer]] Review of Systems 2 Review of Systems: all other systems are reviewed and are negative Constitutional: Reports as per HPI and Reports no additional constitutional complaints Eyes: Reports as per HPI and Reports no additional eye complaints Reports system reviewed and no additional complaints, except as documented Cardiovascular: Reports as per HPI and Reports no additional cardiovascular complaints Respiratory: Reports as per HPI and Reports no additional respiratory complaints Gastrointestinal: Reports as per HPI and Reports no additional gastrointestinal complaints Genitourinary: Reports no additional female genitourinary complaints Musculoskeletal: Reports no additional musculoskeletal complaints Skin/Breast: Reports system reviewed and no additional complaints, except as docu Psychiatric: Reports no additional psychiatric complaints Endocrine: Reports no additional endocrine complaints Hematologic/Lymphatic: Reports no additional hematologic/lymphatic complaints Allergic/Immunologic: Reports no additional allergic/immunologic complaints Reports system reviewed and no additional complaints, except as documented and Reports Abnormal speech present [facility] Past Medical History Medical History Multifactorial dementia Dementia with behavioral disturbance Parkinson's disease Aortic stenosis, mild Hypothyroidism Surgical History Hx of colonoscopy History of hand surgery History of total hip replacement Family History Family History Sister AAA (abdominal aortic aneurysm) Social History Social History Household Members: Spouse Household Members Other:: was a rehab and home for 1 day Housing: Homeless Do you presently have visiting nurse or other home services: Yes (PT) Alcohol intake: former 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 Patient Tobacco Use Status: Former Tobacco user Tobacco use type: Cigarette Cigarettes Per Day: 4 Years Smoked: 35 Smoked in Last 30 Days: No Second Hand Smoke Exposure: No Use of substances other than those prescribed or required for medical reasons: No Advance Directives: Yes Advance Directives on File: Yes Advance Directives Date on File: 08/10/23 service: No Current occupational status: retired and disabled 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 Blood pressure elevated. Heart rate normal. Respiratory rate normal. Temperature normal. Oxygen saturation normal. Appearance: Alert. Oriented X3. No acute distress. Head: Normal external exam. Normocephalic. Atraumatic. No Figueroa signs noted. No raccoon eyes noted Eyes: PERRLA. EOMI. Conjunctiva and sclera normal. Eyelids normal. ENT: TM's Normal. Pharynx normal. Uvula midline. Moist mucous membranes. No trismus noted. No drooling noted. No muffled voice noted. Neck: Normal inspection. Neck supple. FROM. No adenopathy. Thyroid Normal. No meningeal signs. No neck mass noted. CVS: Normal heart rate and rhythm. Heart sound normal. No murmurs noted. Pulses normal throughout. Respiratory: No respiratory distress. Painless inspiration. Breath sounds normal. No wheezes/rales/rhonchi noted. Chest nontender. No accessory muscle usage noted or decreased air movement noted. Abdomen: Soft and nontender. Bowel sounds normal in all 4 quadrants. No distention noted. No organomegaly noted. No visible injury noted. Back: No CVA tenderness. Full range of motion noted. Skin: Skin warm and dry. Normal skin color. Normal skin turgor. No rashes/lesions/lacerations noted. Extremities: left arm IV site with slow bleeding. Neuro: Oriented X 3. Cranial nerve exam: II-XII are grossly intact No motor deficit. No sensory deficit. Reflexes normal. Course Reevaluation(s) Reevaluation #1: left forearm bleeding from IV site, CBC /coags WNL, bleeding site stopped after placing 3 nonabsorbable nylon suture 3-0, patient was observed in the emergency department for4 hours with no active bleeding. Will discharge the patient was caregiver with suture removal in 7 days. Time: 15:21 Medications Administered Discontinued Medications Generic Name Dose Route Start Last Admin Trade Name Darion PRN Reason Stop Dose Admin Lidocaine HCl 20 ml 01/24/25 13:28 01/24/25 13:45 Lidocaine Hcl 1 % 20 Ml Vial SUBCUT 01/24/25 13:29 20 ml ONCE ONE Administration Procedures Laceration Laceration 1: Site: upper extremity ( forearm) Side (If applicable): right Description: other ( venous bleed from IV catheter site) Depth: simple, single layer Local Anesthetic: lidocaine 1% Amount of anesthesia used (mL): 3 Skin layer closed with: nylon Size (cm): 3-0 Number of sutures: 3 Technique: simple, interrupted Medical Decision Making Differential Diagnosis Differential Diagnoses: The differential diagnosis associated with the presentation includes ( Coagulopathy, thrombocytopenia, severe anemia) Admission/Observation Consideration of admission/observation: Escalation of care including admission/observation considered Lab Data MDM Lab Attestation statement: I reviewed the patient's lab results. 01/24/25 12:42 Labs: Lab Results 01/24/25 01/24/25 Range/Units 12:42 13:10 WBC 5.7 (4.8-10.8) X10*3/uL RBC 3.59 L (4.20-5.50) X10*6/uL Hgb 11.4 L (12.0-16.0) g/dl Hct 33.7 L (37.0-47.0) % MCV 93.9 (80.0-98.0) fL MCH 31.8 (27.0-33.0) pg MCHC 33.8 (31.0-35.0) g/dl RDW 14.5 (11.0-16.0) % Plt Count 186 (160-400) X10*3/uL MPV 11.7 (9.4-12.3) fL Immature Gran % (Auto) 0.5 H (0.0-0.4) % Neut % (Auto) 66.1 (45-73) % Lymph % (Auto) 21.4 (20-40) % [place] % (Auto) 8.8 (2-11) % Eos % (Auto) 2.5 (0-4) % Baso % (Auto) 0.7 (0-2) % Lymph # (Auto) 1.2 (1.2-4.9) X10*3/uL [place] # (Auto) 0.5 (0.1-1.2) X10*3/uL Eos # (Auto) 0.1 (0.0-0.4) X10*3/uL Baso # (Auto) 0.0 (0.0-0.2) X10*3/uL Abs Immat Gran (auto) 0.03 (0.00-0.03) X10*3/uL Absolute Neuts (auto) 3.7 (2.0-8.3) x10*3/uL Absolute Nucleated RBC 0.000 (0.0-0.012) X10*3/uL Nucleated RBC % (auto) 0.0 (0.0-0.2) /100WBC PT 10.9 (10.9-12.4) SEC INR 0.9 (0.9-1.1) Discharge Plan Discharge Clinical Impression: Venous bleed Patient Disposition: Home, Self-Care Additional Instructions: apply direct pressure on the bleeding site for 10 minutes if do not stop seek medical attention. Prescriptions: No Action selegiline HCl 5 mg tablet 5 mg PO BID 30 Days Qty: 60 6RF quetiapine 25 mg tablet 25 mg PO BEDTIME PRN (Reason: Sleep) clopidogrel 75 mg Tablet 75 mg PO DAILY Qty: 30 0RF aspirin 81 mg Tablet,Chewable 81 mg PO DAILY Qty: 30 0RF Rytary 61.25-245 mg capsule, extended release 1 cap PO QID ascorbic acid (vitamin C) 500 mg Tablet 500 mg PO DAILY levothyroxine 75 mcg tablet 75 mcg PO DAILY@0600 Referrals: Omar Siu MD [Primary Care Provider] - Print Language: Luxembourgish
[2025-01-24 12:14] VITALS: BP 104/60; PULSE 82; RESP 16; TEMP 36.8; O2SAT 99
--- NOTE | 2025-01-24 12:14 | PC.NURSE ---
Pressure dressing to L FA removed with blood-saturated non-stick dressing noted; small IV insertion site to LFA still slowly oozing blood; MD visualized as well; dressing re-applied to area; will reassess for bleeding in q1 hr per MD; pt has no c/o pain; denies blood in urine/stool/denies bleeding gums at this time
[2025-01-24 12:19] VITALS: BP 112/62; BP 115/58; PULSE 78; PULSE 82
[2025-01-24 12:46] LABS: MANUAL DIFF FLAG NO
[2025-01-24 12:54] LABS: Basophils Percent Auto 0.7 % (0-2); Eosinophils Absolute Auto 0.1 X10*3/uL (0.0-0.4); Eosinophils Percent Auto 2.5 % (0-4); Hematocrit 33.7 % (37.0-47.0); Hemoglobin 11.4 g/dl (12.0-16.0); Imm Gran Abs Auto 0.03 X10*3/uL (0.00-0.03); Imm Gran Pct Auto 0.5 % (0.0-0.4); Lymphocytes Absolute Auto 1.2 X10*3/uL (1.2-4.9); Lymphocytes Percent Auto 21.4 % (20-40); Mean Corpuscular HGB Conc 33.8 g/dl (31.0-35.0); Mean Corpuscular Hemoglobin 31.8 pg (27.0-33.0); Mean Corpuscular Volume 93.9 fL (80.0-98.0); Mean Platelet Volume 11.7 fL (9.4-12.3); Monocytes Absolute Auto 0.5 X10*3/uL (0.1-1.2); Monocytes Percent Auto 8.8 % (2-11); Neutrophils Absolute Auto 3.7 x10*3/uL (2.0-8.3); Neutrophils Percent Auto 66.1 % (45-73); Platelet Count 186 X10*3/uL (160-400); Red Blood Count 3.59 X10*6/uL (4.20-5.50); Red Cell Distribution Width 14.5 % (11.0-16.0); White Blood Count 5.7 X10*3/uL (4.8-10.8)
[2025-01-24 13:25] LABS: INTERNATIONAL NORM RATIO 0.9 (0.9-1.1); Prothrombin Time 10.9 SEC (10.9-12.4)
[2025-01-24] MEDS: Lidocaine HCl 1 % 20 ML VIAL SUBCUT (13:45)
--- OUTSIDE RECORDS SUMMARY | 2025-01-24 14:29 | XMS_ITS | Continuity of Care Document ---
Author Organization [facility] hdtMEDIA Formerly [facility], [facility] Address [address] [place] [address] Care Team Providers Care Auto Glass Technician Name Role Phone RAMA RIVERA Primary Care Provider Assessment No assessment recorded. Plan of Treatment [...] Organization Details Recorded Time Parkinson 's disease [id number] Active 024 RONALDO HAAS MD [address] [facility] [address], [place], [address] , [facility] hdtMEDIA [facility] 10/21/2024 19:02:21 Problem Notes None recorded. Medical [...] Code Diagnosis Note [id number] RONALDO HAAS MD [facility] [address] [place] [address] 11/28/2024 12:19:27 12/10/2024 18:34:25 Dementia 30718044 F03.90 [id number] RONALDO HAAS MD [facility] [address] [place] [address] 12/26/2024 12:28:35 12/28/2024 14:17:41 Dementia 65222205 F03.90 Goal #1:Measura ble goal: Decrease falls, [...] support with veterans benefits.[facility]: Send written informatio n to Suraj because he is DIOMEDE and cannot communicat e on the phone [...] Name 12/26/2024 1 [place] Suzan Lindo [id number] Suzan Lindo Notes Date Note Type Note Provider Name and Address Organization Details Recorded Time 12/26/2024 text/html Table Inspector: Tier: {{First 6 months - low [...] acting usual and . She is at [facility] in [facility]. Suraj's surgery is 01/08 for his knee [...] guilt, offered support and offered support group. Table Inspector will follow up with [facility] and see how we can assist. Suzan's son, Elmira's is having a hard time with all of this. He refuses help and Table Inspector encourged Elmira to just support him [...] planning was completed. RONALDO HAAS MD [address] [facility] [address], [place], [address], [facility] - [facility] 01/01/2025 18:01:26 OBGyn Episode No OBEpisode recorded.
--- OUTSIDE RECORDS SUMMARY | 2025-01-24 14:29 | XMS_ITS | Patient Health Record ---
Author Organization [facility] Address [address] [place] [address] Care Team Providers Care Cath Lab Radiology Technician Name Role Phone Omar Siu MD Primary Care Provider Karla Urias Unavailable [phone] [address] Arellano Unavailable [phone] Allergies No Known Allergies Reason For Referral [...] W/U Status Risk Notes Problem Tinea unguium (456905897) Tinea unguium (B35.1) Active confirmed Problem Non-pressure chronic ulcer of other part of right foot with fat layer exposed (L97.512) Active confirmed Problem Bilateral atherosclerosis of arteries of lower limbs (disorder) (27170392292132219 ) Unspecified atherosclerosis of [place] arteries of extremities, bilateral legs (I70.203) Active confirmed Problem Acquired hallux valgus (76133496) Hallux valgus (acquired), right foot (M20.11) Active confirmed Problem Non-pressure chronic ulcer of other part of left foot limited to breakdown of skin (L97.521) Active confirmed Problem Non-pressure chronic ulcer of other part of right foot limited to breakdown of skin (L97.511) Active confirmed Problem Acquired hammer toe of right foot (1480786731801558) Other hammer toe(s) (acquired), right foot (M20.41) Active confirmed Problem Acquired hammer toe of left foot (5820693407846408) Other hammer toe(s) (acquired), left foot (M20.42) Active confirmed Problem 32148494 Parkinson diseas e (G20) Active confirmed Vital Signs Blood pressure diastolic 80 mm Hg 12/10/2024 Height 5 ft 3 in in 12/10/2024 Blood pressure systolic 120 mm Hg 12/10/2024 Weight 118 lbs 12/10/2024 BMI 20.9 kg/m2 12/10/2024 Procedures Procedure Date Ordered Date Performed Result Body Sit e 78361-AAKGAZD NAIL, 6 OR MORE 12/10/2024 N/A Encounters Encounter Location Date Provider Diagnosis [facility] [place] [address] [place] [address] 03/05/2024 [address] Arellano Tinea unguium B35.1 ; Pain in right toe(s) M79.674 ; Pain in left toe(s) M79.675 ; Unspecified atherosclerosis of [place] arteries of extremities, bilateral legs I70.203 ; Other hammer toe(s) (acquired), left foot M20.42 ; Other hammer toe(s) (acquired), right foot M20.41 and Hallux valgus (acquired), right foot M20.[address] [address] 06/04/2024 Lane Arellano Tinea unguium B35.1 ; Pain in right toe(s) M79.674 ; Pain in left toe(s) M79.675 ; Unspecified atherosclerosis of [place] arteries of extremities, bilateral legs I70.203 ; Other hammer toe(s) (acquired), left foot M20.42 ; Other hammer toe(s) (acquired), right foot M20.41 and Hallux valgus (acquired), right foot M20.[address] [address] 09/13/2024 Lane Arellano Tinea unguium B35.1 ; Pain in right toe(s) M79.674 ; Pain in left toe(s) M79.675 ; Unspecified atherosclerosis of [place] arteries of extremities, bilateral legs I70.203 ; Other hammer toe(s) (acquired), left foot M20.42 ; Other hammer toe(s) (acquired), right foot M20.41 and Hallux valgus (acquired), right foot M20.[address] [address] 12/10/2024 Karla Miles Pain in right toe(s) [...] (ICD-10 - M79.675) 03/05/2024 Unspecified atherosclerosis of [place] arteries of extremities, bilateral legs (ICD-10 - I70.203) 06/04/2024 Pain in left toe(s) (ICD-10 - M79.675) 09/13/2024 Unspecified atherosclerosis of [place] arteries of extremities, bilateral legs (ICD-10 - I70.203) 12/10/2024 Pain in left toe(s) (ICD-10 - M79.675) 09/13/2024 Other hammer toe(s) (acquired), left foot (ICD-10 - M20.42) 06/04/2024 Unspecified atherosclerosis of [place] arteries of extremities, bilateral legs (ICD-10 - [...] X ray : Foot, right 3V 07/07/2022 92252-NTMAASU NAIL, 6 OR MORE 12/10/2024 45191-DOLOTLU NAIL, 6 OR MORE 02/01/2018 27984-FLVZTZZ NAIL, 6 OR MORE 10/16/2018 58083-RNBJJJX NAIL, 6 OR MORE 07/05/2018 07360-VYZROSR NAIL, -5 08/31/2017 92163-XCSFIXO NAIL, -11/23/2017 02772-MKFTPJL NAIL, -06/05/2015 00526-ANTCDCQ NAIL, -10/06/2015 66246-JXUUNVL NAIL, -03/10/2016 25985-OGRNTGO NAIL, -07/07/2016 85374-QERMOKV NAIL, -11/01/2016 83437-ODOYAVZ NAIL, -02/21/2017 08264-YVCIDOU NAIL, -05/23/2017 45771-Gode Destruction, 11-2705/23/2017 98728-Mvux Destruction, 11-2708/12/2017 88038-Xrwx Destruction, -02/21/2017 15569-Atiz Destruction, -14 11/01/2016 19889-Fsfh Destruction, -14 07/07/2016 98637-Cnxz Destruction, -14 03/10/2016 77084-Xafq Destruction, -14 10/06/2015 25138-Rozo Destruction, -14 06/05/2015 65420-Vkab Destruction, -14 11/23/2017 64317-Aelo Destruction, 14 08/31/2017 92721-Wxvg Destruction, 14 02/01/2018 13834-Cxrz Destruction, -14 05/03/2018 85847-Ezmh Destruction, -14 07/05/2018 33632-Sojk Destruction, -14 10/16/2018 08623-Mivp Destruction, 11-2703/20/2020 90902- Debride <25 sq cm 01/26/2012 96769- Debride <25 sq cm 02/24/2012 26245- Debride <25 sq cm 05/10/2012 55791- Debride <25 sq cm 12/10/2021 77335-WJSAHFS SKIN/TISSUE 07/07/2022 61767 I&D ABSCESS- SIMPLE,SINGLE 022 61181-VWUN SKIN LESIONS, OVER 4 08/04/20 86054-CQZO SKIN LESIONS, 2 TO 4 12/10/19 23392-PPOT SKIN LESIONS, 2 TO 4 11/26/19 59952-DTGY SKIN LESIONS, 2 TO 4 03/11/20 46999-HGHZ SKIN LESIONS, 2 TO 4 06/10/20 93901-CKDE SKIN LESIONS, 2 TO 4 09/09/20 58745- Removal of Foreign Body, Subcut 0 06/10/2021 07668- Nail Unit Biopsy 05/03/2018 Next Appt Details Provider Name:Karla Walker hector, 04/01/2025 03:15:00 PM, [address] [place], [address], Insurance Providers Payer Name Payer Address Payer Phone Subscriber Number Group Number Insured Name Patient Relationship to Insured Coverage Start Date Coverage End Date Medicare National Govt Sv[employer] Inc [address] [place] [address] [id number] Suzan Lindo Self - patient is the insured [employer]) [address] [place] [address] [id number] Suzan Lindo Self - patient is the insured Medical (General) History Medical History History ICD Code thyroid disorder Parkinsons disease Surgical History Surgery Date(Month/Year) left hip surgery - fx [facility] 01/01/2019 cataracts 04/2019, 05/2019 L Hand Surgery 08/2022 Hospitalization History Reason Date(Month/Year)
--- OUTSIDE RECORDS SUMMARY | 2025-01-24 14:29 | XMS_ITS ---
Author Organization [facility] Address [address] [place] [address] Care Team Providers Care Import Customer Service Manager Name Role Phone Omar Siu MD Primary Care Provider Karla Urias Unavailable [phone] Un[address] [phone] Allergies No Known Allergies REASON FOR VISIT [...] 09/13/2024 Encounters Encounter Location Date Provider Diagnosis [facility] [place] [address] [place] [address] 09/13/2024 [address] Arellano Tinea unguium B35.1 ; Pain in right toe(s) M79.674 ; Pain in left toe(s) M79.675 ; Unspecified atherosclerosis of lower [place] arteries of extremities, bilateral legs I70.203 ; [...] (ICD-10 - M79.675) 09/13/2024 Unspecified atherosclerosis of lower [place] arteries of extremities, bilateral legs (ICD-10 - I70.203) 09/13/2024 Other hammer toe(s) (acquired), left foot (ICD-10 - M20.42) 09/13/2024 Other hammer toe(s) (acquired), right foot (ICD-10 - M20.41) 09/13/2024 Hallux valgus (acquired), right foot (ICD-10 - M20.11) Plan Of Treatment Next Appt Details Follow Up: 3 Months, Reason: Provider Name:Karla young, 04/01/2025 03:15:00 PM, [address] [place] [address], [address], Procedure Notes * Category Sub-Category Detail Notes [...] as necessary. Patient chooses, no pharmaceutical tx (20733) Progress Notes * Suzan LINDO NDOB:[birth year] (84 yo F)Acc No.[id number]:09/13/2024 Progress Note Patient:?Suzan Lindo N Provider:?Lane Arellano DPM :1940???Age:84 Y???Sex:Female D ate:09/13/2024 Address:[address] [place] [address] heather [id number] Pcp:Omar Siu MD Subjective: * Chief Complaints: [...] in Driveway. ?Marital status: . 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 ?Occupational exposure: none. * Medications:?TakingCarbidopa -Levodopa [...] in left toe(s) - M79.675?4.?Unspecified atherosclerosis of lower [place] arteries of extremities, bilateral legs - I70.203?5.?Other [...] as necessary. Patient chooses, no pharmaceutical tx (31062).? * Procedure Codes:?83684 DEBRI DE NAIL, 6 OR MORE, Modifiers: XS * Follow Up:?3 Months * Images: * Sign off status: Completed true * Provider:?Lane Arellano DPM Date:? 024 Generated for Lindy dalton/Elisha/Eva on:?01/24/2025 02:29 PM EDT History and Physical Notes * [...]
--- OUTSIDE RECORDS SUMMARY | 2025-01-24 14:29 | XMS_ITS ---
Author Organization [facility] Address [address] [place] [address] Care Team Providers Care Tallier Name Role Phone Omar Siu MD Primary Care Provider Karla Urias Unavailable [phone] [address] Arellano Unavailable [phone] Allergies No Known Allergies REASON FOR VISIT [...] 024 Encounters Encounter Location Date Provider Diagnosis [facility] [place] [address] [place] [address] 06/04/2024 Lane Arellano Tinea unguium B35.1 ; Pain in right toe(s) M79.674 ; Pain in left toe(s) M79.675 ; Unspecified atherosclerosis of [place] arteries of extremities, bilateral legs I70.203 ; [...] (ICD-10 - M79.675) 06/04/2024 Unspecified atherosclerosis of [place] arteries of extremities, bilateral legs (ICD-10 - I70.203) 06/04/2024 Other hammer toe(s) (acquired), left foot (ICD-10 - M20.42) 06/04/2024 Other hammer toe(s) (acquired), right foot (ICD-10 - M20.41) 06/04/2024 Hallux valgus (acquired), right foot (ICD-10 - M20.11) Plan Of Treatment Next Appt Details Follow Up: 2 Months, 3 Month s, Reason: Provider Name:Karla young, 04/01/2025 03:15:00 PM, [address] [place], [address], Procedure Notes * Category Sub-Category Detail Notes [...] as necessary. Patient chooses, no pharmaceutical tx (14094) Keratoma Treatment Parring or Cutting o f Benign Hyperkeratotic Lesion(s) 87470 ( >4 Lesions) - The Benign hyperkeratotic lesions, as described above were pared, and/or cut utilizing a sterile #15 blade, tissue nippers, and/or dremel, Q8 Progress Notes * Suzan LINDO NDOB:[birth year] (83 yo F)Acc No.[id number]:06/04/2024 Progress Note Patient:?Suzan Lindo N Provider:?Lane Arellano DPM :1940???Age:83 Y???Sex:Female D ate:06/04/2024 Address:[address] [place], [place] [address] Pcp:Omar Siu MD Subjective: * Chief Complaints: [...] in Driveway. ?Marital status: . 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 ?Occupational exposure: none. * Medications:?TakingCarbidopa -Levodopa [...] in left toe(s) - M79.675?4.?Unspecified atherosclerosis of [place] arteries of extremities, bilateral legs - I70.203?5.?Other [...] as necessary. Patient chooses, no pharmaceutical tx (29505).?Keratoma Treatment:?Parring or Cutting of Benign Hyperkeratotic Lesion(s)?42770 ( >4 Lesions) - The Benign hyperkeratotic lesions, as described above were pared, and/or cut utilizing a sterile #15 blade, tissue nippers, and/or dremel, Q8.? * Procedure Codes:?41012 DEBRI DE NAIL, 6 OR MORE, Modifiers: XS 20039 TRIM SKIN LESIONS, OVER 4, Modifiers: Q8 * Follow Up:?2 Months, 3 Month s * Images: * Sign off status: Completed true * Provider:?Lane Arellano DPM Date:? 024 Generated for Lindy dalton/Elisha/eTransmitting on:?01/24/2025 02:28 PM EDT History and Physical Notes * [...]
--- OUTSIDE RECORDS SUMMARY | 2025-01-24 14:29 | XMS_ITS | Data Portability ---
Author Organization [facility] [employer] Address 1966, [address] [place] [id number] Care Team Providers Care Cytogenetics Technologist Name Role Phone RAMA RIVERA Primary Care [...] forwarded to the patient? s Primary Care [email or web address] Not available 10/17/2024 11:41:07 11/28/2024 11/28/2024 Goal [...] will wash feet and put on new javascript developer socks for Suzan to keep on 24/7. Hang reminder signs for Suzan about wearing shoes and socks and for Bill on how to cut food up smaller than his pinkie nail. Replace or alter threshold to make it easier to transition from room to room. Tasks assigned to [employer] Staff: Arrange for home safety evaluation. [facility] recommending that they do not allow smoking [...] can provide any in home support with [employer]. Tasks assigned to [facility] Staff: Send written information to Suraj because he is NIK[place]SK[place] and cannot communicate on the phone or during Zoom call. Goal #4: Measurable goal: Suzan will have a Healthcare Directive and MOLST on file in case of an emergency. Tasks for caregivers: Talk wtih Suraj about upcoming surgery and ensuring that paperwork is completed in case something happens with Suraj's recovery or general health. Tasks for [facility] Staff: Provide forms for family to discuss prior to Dec appointment with Suraj. [email or web address] Not available 11/28/2024 16:53:38 Plan of Treatment [...] choking or aspiration of food or drinks. Not available 10/19/2024 09:56:58 Patient Instructions Encounter [...] Kortney wash feet and put on new javascript developer socks. Acid Patroller contacting OT to ask about chair that [...] about services through [facility] and through [facility]. [email or web address] Not available 10/19/2024 09:59:35 Reason for Referral None Reported. Problems Name Problem SNOMED Code Status Onset Date Resolution Date Notes Provider Name and Address Organization Details Recorded Time Parkinson 's disease 97996554 Active 024 RONALDO HAAS MD [address], [address] , [facility] 10/21/2024 19:02:21 Problem Notes None recorded. Medical [...] Code Diagnosis Note [id number] RONALDO HAAS MD [facility] [address],[place] [place] [address] 10/10/2024 10:45:00 11/26/2024 11:26:04 Dementia [id number] G31.83 F03.90 {{I attest that this the patient meets the National [place] on Aging-Alzh eimer? s Associati on diagnostic guidelines for dementia and/or the DSM-5 diagnostic guidelines for major neurocogni tive disorder I attest that i have received a written report of a documented dementia diagnosis* No, I cannot attest to a diagnosis of dementia}} Chronic di sease - care arrangement [id number] Z76.89 Goal #{{1* 2 3 4 5 6 7 8} }: Domain: {{Safety* Behavioral Needs special needs caregiver Education/ Support Ca re coordinati on/Referra l Care Transition Medicaiti on reconcilia tion/manag ement Resp ite Advanc ed Care Planning O ther (Specify)} } Descriptio n: Needs a home safety evaluation Specifiall y caregiver asks about walk in shower Measurable goal: decrease falls Tasks assigned to [facility] Staff: arrange for home safety eval. [employer] for walk in shower Goal #{{1 2* 3 4 5 6 7 8} }: Domain: {{Safety B ehavioral Needs special needs caregiver Education/ Support* C are coordinati on/Referra l [...] 8} }: Domain: {{Safety B ehavioral Needs special needs caregiver Education/ Support Ca re coordinati on/Referra l Care Transition Medicaiti on reconcilia tion/manag ement Resp ite Advanc ed Care Planning O ther (Specify)* }} Descriptio n: Suzan has physical limitation s as well as cognitive. She desires more independen ce around the house Measurable goal: improve mood. Increase independen ce, jose j with walking Tasks assigned to [facility] Staff: See if there are other ways to support PT for Suzan. Consider any adaptive aids that will allow her more independen ce Goal #{{1 2 3 4 * 5 6 7 8} }: Domain: {{Safety B ehavioral Needs special needs caregiver Education/ Support Ca re coordinati on/Referra l Care Transition Medicaiti on reconcilia tion/manag ement Resp ite* Advan alicja Care Planning O ther (Specify)} } Descriptio n: Need for respite while Suraj has surgery. Likely has VA and other benefits Measurable goal: improve Caregiver burden Tasks assigned to [facility] Staff:Assi st with finding respite that Family can use through [facility] as well as [facility] Advance care planning 71 [id number] Z71.89 Advance care planning is {{Discusse d Reviewed Declined* }} POSLST has been {{complete d at this visit comp leted previously and on file defer red*}} [id number] RONALDO HAAS MD [facility] [address] [facility] [place] [address] 10/17/2024 11:40:54 11/26/2024 11:27:47 Dementia [id number] F02.80 PT seen for [facility] dementia Care Management Chronic di sease - care arrangement [id number] Z76.89 Goal #1: Domain: Safety Descriptio n: Needs a home safety evaluation , forgets walker, forgets to lock transport chair and put on shoes. Can't put javascript developer socks on daily. Hx of two major [...] Kortney wash feet and put on new javascript developer socks. Fix threshold to be easier to [...] VA before 11/01/24. [id number] [facility] [address] [place] [address] 11/28/2024 12:19:27 12/10/2024 18:34:25 Dementia [id number] F03.90 [id number] RONALDO HAAS MD [facility] [address] [facility] [place] [address] 12/26/2024 12:28:35 12/28/2024 14:17:41 Dementia [id number] F03.90 Goal #1:Measura ble goal: Decrease falls, [...] support with veterans benefits.T asks assigned to [facility] Staff: Send written informatio n to Suraj because he is [place]OL[place] and cannot communicat e on the phone [...] Name 10/10/2024 1 [place] Suzan Lindo [id number] Suzan Belgica 10/17/2024 1 [place] Suzan Lindo [id number] 6 Suzan Lindo 11/28/2024 1 [place] Suzan Lindo [id number] Suzan Lindo 12/26/2024 1 [place] Suzan Lindo [id number] 6 Suzan Garciatuliohector Notes Date Note Type [...] type if known:LBD RONALDO HAAS MD [address], [address], [facility] 10/10/2024 12:59:26 10/17/2024 text/html GUIDE Note for [...] had a nurse come out from the [facility] to assess the couple and they have not gotten back to them on further directions if they would qualify for Medicaid. Isolation/Loneliness scale {{ Y#}} Another couple comes over to play cards, good social life, phone calls. Suraj is now limited with Other: The following topics were researched: OT options for a wheelchair, anti-lock/rollback device on it, [facility] resources, eating small bites with [employer]' Correspondence this month included: Email and phone calls RONALDO HAAS MD [address], [place], [address], [place] [facility] 10/21/2024 19:03:54 11/28/2024 text/html Method of Check [...] a cigarette once in the past and Acid Patroller identifies her has a high risk in [...] getting call backs from because of tht. Acid Patroller recommended following up with Suraj's doctor about cognitive changes. Suraj has his surgery on 01/08 and they have overnight care set up with unlicensed aid who comes over and is paid out of pocket. They recommended rehab for Suraj but he declined and wants to get back home after one or two days. [place] is working with him for assistance benefits at home, no word from them if Suzan can qualify for any assistance from the [facility]. Suzan needs Healthcare Directives and MOLST. Needs a doctor to say that they need to lock up the lighters and cigarettes. Caregiver does not think that Suzan would go to an senior radiation therapist day program. Interested in respite care- Acid Patroller will find partner in the area to utilize [facility] funding. Unable to find a wheelchair that fits the layout of the bathroom to use an anti-rollback device per OT. RONALDO HAAS MD [address], [address], [facility] 12/03/2024 20:33:45 12/26/2024 text/html Acid Patroller: Tier: {{First 6 months - low complexity [...] acting usual and . She is at [facility] in [facility]. Suraj's surgery is 01/08 for his [...] guilt, offered support and offered support group. Acid Patroller will follow up with Carola MENDOSA and see how we can assist. Suzan's son, Elmira's is having a hard time with all of this. He refuses help and Acid Patroller encourged Elmira to just support him and [...] care planning was completed. RONALDO HAAS MD [address], [address], [facility] 01/01/2025 18:01:26 OBGyn Episode No OBEpisode recorded.
--- OUTSIDE RECORDS SUMMARY | 2025-01-24 14:29 | XMS_ITS | Data Portability ---
Author Organization [facility], Main Office Address [address] [facility] [place] [address] Care Team Providers Care Numerical Control Tool Programmer Name Role Phone MARYMICHELLEMARIZOL RAMA Primary Care Provider [phone] FLASHJIA WORLEY - 2ND FLOOR OTHER Assessment No assessment recorded. Plan of Treatment Reminders Order Date Submit Date Provider Last Modified By Organization Details Last Modified Time Details Appointments None recorded. Lab None recorded. Referral None recorded. Procedures None recorded. Surgeries None recorded. Imaging None recorded. Medication Orders oxycodone 5 mg tablet 2022 [facility] [address] [place] [address], [address], 3 19:43:25 Patient TargetsNo targets recorded. Patient InstructionsNo instructions recorded. Reason for Referral None Reported. Problems Name Problem SNOMED Code Status Onset Date Resolution Date Notes Provider Name and Address Organization Details Recorded Time Falls 697054317 Active 2022 BIBIANA ALBA NP [address] [facility], [address], [place], [address], [facility] 3 11:36:12 Fracture of neck of femur 1133585 Active 2022 BIBIANA ALBA NP [address] [facility], [address], [place], [address], [facility] 3 11:36:32 Depressive disorder 32210279 Active 2022 BIBIANA ALBA NP [address] [facility], [address], [place], [address], [facility] 3 11:36:55 Anemia 710378860 Active 2022 BIBIANA ALBA NP [address] [facility], [address], [place], [address], [facility] 3 11:49:04 Cigarette smoker 06230600 Active 2022 Elly Phillips MD [address] [facility], [address], [place], [address], [facility] 3 20:00:08 Mild alcohol dependence 616359507 Active 2022 Elly Phillips MD [address] [facility], [address], [place], [address], [facility] 3 20:00:46 Hallucinat ions 0648960 Active 2022 with delusions BIBIANA ALBA NP [address] [facility], [facility] [address], [place], [address], [facility] 3 12:21:13 Fracture of neck of femur 3141972 [facility] 12:04:24 Parkinson' s disease 54907632 Active 2018 [facility] 12:04:34 Vitamin D deficiency 72087825 Active 2018 [facility] 9 12:04:42 Hypothyroi dism 00971591 Active 2018 [facility] 12:04:48 Problem Notes None recorded. [...] mm[Hg] 78 mm[Hg] BIBIANA ALBA NP [address] [facility], [address], [place], [address], [facility] 3 13:32:14 Date Recorded Body height Heart rate Respiratory rate Body temperature Oxygen saturation Oxygen saturation in Arterial blood by Pulse oximetry Systolic blood pressure Diastolic blood pressure Provider Name and Address Organization Details Last Updated DateTime 3 160.02 cm 80 /min 16 /min 98.1 [degF] 99 % 99 % 127 mm[Hg] 71 mm[Hg] BIBIANA ALBA NP [address] [facility] [address], [place], [address], [facility] 3 10:55:52 Date Recorded Body height Heart rate Respiratory rate Body temperature Oxygen saturation Oxygen saturation in Arterial blood by Pulse oximetry Systolic blood pressure Diastolic blood pressure Provider Name and Address Organization Details Last Updated DateTime 3 160.02 cm 68 /min 16 /min 98.3 [degF] 98 % 98 % 122 mm[Hg] 58 mm[Hg] Sandra Morse NP [address] [facility] [address], [place], [address], [facility] 3 09:24:44 Date Recorded Body height Body mass index (BMI) Body weight Heart rate Respiratory rate Body temperature Oxygen saturation Oxygen saturation in Arterial blood by Pulse oximetry Systolic blood pressure Diastolic blood pressure Provider Name and Address Organization Details Last Updated DateTime 3 160.02 cm 20.4 kg/m2 23441.1 2 g 67 /min 18 /min 97.9 [degF] 97 % 97 % 128 mm[Hg] 69 mm[Hg] Elly Phillips MD 38 [facility] [address], [place], [address], [facility] 3 17:48:43 Date Recorded Body height Body weight Heart rate Respiratory rate Body temperature Oxygen saturation Oxygen saturation in Arterial blood by Pulse oximetry Systolic blood pressure Diastolic blood pressure Provider Name and Address Organization Details Last Updated DateTime 3 160.02 cm 21737.4 1 g 81 /min 18 /min 98 [degF] 95 % 95 % 123 mm[Hg] 76 mm[Hg] Sandra Morse NP [address] [facility] [address], [place], [address], [facility] 12:39:21 Social History Question Answer Notes LastModified by Organization Details LastModified Time Tobacco Smoking Status Current Some Day Smoker Sandra Morse, PIETRO [address] [facility], [address], [place], [address], [facility] 07/31/2023 10:43:08 Do You Have [...] Do You Have A Medical Power Of Household Personal Assistant? Yes Invoked Information not available 08/01/2023 What [...] Time SARS-COV-2 (COVID-19) vaccine, UNSPECIFIED [address] [facility] 06/28/2023 13:39:18 SARS-COV-2 (COVID-19) vaccine, UNSPECIFIED [address] [facility] 06/28/2023 13:39:28 SARS-COV-2 (COVID-19) vaccine, UNSPECIFIED [address] [facility] 06/28/2023 13:40:14 SARS-COV-2 (COVID-19) vaccine, UNSPECIFIED [address] [facility] 06/28/2023 13:40:26 SARS-COV-2 (COVID-19) vaccine, UNSPECIFIED 1 completed Uzma Chino [facility] 06/28/2023 13:40:[address] [facility] 06/28/2023 13:41:04 zoster recombinant [address] [facility] 06/28/2023 13:41:57 zoster recombinant 9 [facility]23 13:42:05 Pneumococcal conjugate PCV 13 8 completed Uzma Magana [facility] 06/28/2023 13:42:32 zoster live 4 completed Uzma Magana [facility] 06/28/2023 13:42:46 Td(adult) unspecified formulation 2 completed Uzma Magana [facility] 06/28/2023 13:43:12 pneumococcal polysaccharide PPV23 8 completed Uzma Magana [facility] 06/28/2023 13:43:28 Influenza, adjuvanted, quadrivalent, PF 3 completed [facility] 12/05/2023 12:23:39 Influenza, adjuvanted, quadrivalent, PF 2 completed Alina Calhoun [facility] 12/29/2023 16:01:49 Past Encounters Encounter ID Performer Location Encounter Start Date Encounter Closed Date Diagnosis/Indication Diagnosis SNOMED-CT Code Diagnosis ICD10 Code Diagnosis Note [id number]IA [address] [place] [address] 01/05/2019 11:55:50 01/17/2019 12:08:44 Fracture of neck of femur 2496850 S72.002D wbatloveno x x30 d for DVT Pf/u with Dr. Giraldo.PT /OT eval. Parkinson's disease 4904 9000 G20 stable on selegiline , sinemet. Vitamin D deficiency 347 37251 E55.9 stable on supplement ation. Hypothyroidism 10219613 E03.9 [place] in[place] [id number] MD MARIA TERESA [address] [place] [address] 01/09/2019 13:32:22 01/17/2019 12:18:12 Fracture of neck of femur 0171677 S72.092D see HPIleft hip fx now s/p nail fixationfo llow ortho recsPT OT eval and treatWBATm onitor for pain control and constipati onlovenox for DVT prophylaxi s Unsteady gait 101238168 R26.81 PT OT eval and treatmonit or fall risk Parkinson's disease 4904 9000 G20 question if contributi ng factor to fallsineme t 25-100 tidmonitor for sx control Hypothyroidism 07643693 E03.8 synthroid 75 mcg qdmonitor tsh prn Anemia due to blood loss 388629167 D50.0 [place] [id number] [address]te [address] [address] 01/11/2019 11:55:22 01/17/2019 14:34:33 Fracture of neck of femur 6147771 S72.002D wbatloveno x x30 d for DVT Pf/u with Dr. Giraldo.PT /OT eval. Parkinson's disease 4904 9000 G20 stable on selegiline , sinemet. Vitamin D deficiency 347 16806 E55.9 stable on supplement ation. Hypothyroidism 14857799 E03.9 [place] in[place] [id number] Vilma Penelope [address] [address] 01/17/2019 15:02:30 01/23/2019 08:27:33 Fracture of neck of femur 0450232 S72.002D wbatloveno x x30 d for DVT Pf/u with Dr. Giraldo.PT /OT eval. Parkinson's disease 4904 9000 G20 stable on selegiline , sinemet. Vitamin D deficiency 347 04550 E55.9 stable on supplement ation. Hypothyroidism 24834441 E03.9 [place] in[place] [id number] [address] 01/25/2019 10:07:54 01/30/2019 15:28:44 Fracture of neck of femur 6916777 S72.002D wbatloveno x x30 d for DVT Pf/u with Dr. Giraldo.PT /OT eval. Parkinson's disease 4904 9000 G20 stable on selegiline , sinemet. Vitamin D deficiency 347 60242 E55.9 stable on supplement ation. Hypothyroidism 90242949 E03.9 [place] ine [id number] Vilma MEJIA [address] [place] [address] 01/30/2019 15:21:38 02/01/2019 15:29:35 Fracture of neck of femur 6882326 S72.002D wbatloveno x x30 d for DVT [...] selegiline , sinemet. Vitamin D deficiency 347 11248 E55.9 stable on supplement ation. Hypothyroidism 69963110 E03.9 [place] [id number] Vilma HUSAINE [address] [place] [address] 02/02/2019 12:24:21 02/06/2019 11:14:37 Fracture of neck of femur 9268445 S72.002D wbatloveno x x30 d for DVT P completed now.f/u with Dr. Giraldo 02/14 Parkinson's disease 4904 9000 G20 stable on selegiline , sinemet. Vitamin D deficiency 347 61650 E55.9 stable on supplement ation. Hypothyroidism 80865310 E03.9 stable on levothyrox ine [id number] [facility] [address] [place] [address] 02/04/2019 10:08:57 02/06/2019 11:18:25 Fracture of neck of femur 1983784 S72.092D see HPIleft hip fx now s/p nail fixationam bulating with walkerclea red for discharge to f/u with ortho Unsteady gait 183344686 R26.81 monitor fall risk Anemia due to blood loss 620562939 D50.0 Post op anemiamoni tor cbc and need for tx Parkinson's disease 4904 9000 G20 sinemet 25-100 tidmonitor for sx control Hypothyroidism 59549861 E03.8 synthroid 75 mcg qdcontinue [id number] PIETRO CORTEZ [address] [place], [place] [address] [address] 06/15/2023 10:18:24 06/17/2023 14:59:16 Falls 492583277 R29.6 PT OT eval and treatfall precaution sfrequent safety checks Fracture o f neck of femur 0054335 S72.001A tylenol 325 mg tidlovenox 40 mg daily till seen by ortho 06/22 Parkinson's disease 4904 9000 G20 rytary 23.75/95 mg er 4 caps in amrytary 23.75/95mg er 3 caps am and pmselegili ne 5 mg bidmonitor for tremors Hypothyroidism 11837684 E03.8 levothyrox ine 75 mcg daily Vitamin D deficiency 347 62523 E55.9 D3 1000 daily Depressive disorder 3548 9007 F32.A seroquel 12.5 mg bid and 25 mg hspsych prnAIMs 0 Anemia 961817023 D64.9 iron dailyvit c 500 dailyB 12 dailymonit or labs [id number] MD MARIA TERESA Sauer ROBERTO [address] [place] [address] [place] [address] 06/16/2023 16:25:01 06/21/2023 15:38:57 Falls 273003475 R29.6 As above.Kevin est issue is poor safety awareness. Fracture o f neck of femur 1152123 S72.044D Continue APAP 650 mg TIDContinu e [...] mg BID and 25 mg qhs. Hypothyroidism 39198113 E03.8 TSH 5.06Contin ue levothyrox ine 75 mcg qdRecheck TSH with FT4 with next labs. Vitamin D deficiency 347 58482 E56.8 Continue vitamin D3 1000 IU qdMonitor as outpt. Anemia 879958548 D64.89 Multifacto rial.Jerome nue FeSO4 324 mg qd with vitamin C 500 mg qd for absorption , and vitamin B12 1000 mcg qd.Monitor labs Cigarette smoker 7594189 7 F17.210 Intermitte nt smoker, no need for nicotine replacemen t at this time.Unabl e to discuss with pt today due to agitation. Mild alcoh ol dependence 530173703 F10.20 Reportedly drinks fairly regularly, but not to excess.But could be contributi ng to fall risk.Jerome nue to discuss with pt and . [id number] PIETRO CORTEZ [address] [place] [address] 06/17/2023 12:19:24 06/21/2023 16:17:57 Parkinson's disease 74531370 G20 rytary 23.75/95 mg er 4 caps in amrytary 23.75/95mg er 3 caps am and pmselegili ne 5 mg bidmonitor for tremors Hallucinations 2437691 R 44.3 nuplazid 34 mg dailystop seroquel when this is started [id number] PIETRO CORTEZ [address] [place] [address] 06/20/2023 12:39:37 06/22/2023 16:56:32 Parkinson's disease 87367607 G20 rytary 23.75/95 mg er 4 caps in amrytary 23.75/95mg er 3 caps am and pmselegili ne 5 mg bidmonitor for tremors Hallucinations 3234343 R 44.3 nuplazid 34 mg dailystop seroquel when this is startedmee t pt where she is and assure her [id number] PIETRO CORTEZ ROBERTO [address] [place] [address] 07/11/2023 13:31:32 07/13/2023 14:09:19 Falls 602185789 R29.6 PT OT eval and treatfall precaution sfrequent safety checks Fracture o f neck of femur 9381058 S72.001A tylenol 325 mg tidlovenox 40 mg daily till seen by ortho 8/9 Parkinson's disease 4904 9000 G20 rytary 23.75/95 mg er 4 caps in amrytary 23.75/95mg er 3 caps am and pmselegili ne 5 mg bidmonitor for tremors Hypothyroidism 65110311 E03.8 levothyrox ine 75 mcg daily Vitamin D deficiency 347 38770 E55.9 D3 1000 daily Depressive disorder 3548 9007 F32.A seroquel stoppedNup lazid 34 mg dailypsych prnAIMs 0 Anemia 443399222 D64.9 iron dailyvit c 500 dailyB 12 dailymonit or labs Hallucinations 7784888 R 44.3 resolved with nuplazidnu plazid 34 mg dailystop seroquel when this is startedmee t pt where she is and assure her [id number] PIETRO CORTEZ [address] [place] [address] 07/22/2023 10:55:18 07/29/2023 10:05:46 Falls 306046905 R29.6 PT OT eval and treatfall precaution sfrequent safety checks Fracture o f neck of femur 3787839 S72.001A tylenol 325 mg tidlovenox 40 mg daily till seen by ortho 8/9 Parkinson's disease 4904 9000 G20 rytary 23.75/95 mg er 4 caps in amrytary 23.75/95mg er 3 caps am and pmselegili ne 5 mg bidmonitor for tremors Hypothyroidism 09825699 E03.8 levothyrox ine 75 mcg daily Vitamin D deficiency 347 14017 E55.9 D3 1000 daily Depressive disorder 3548 9007 F32.A seroquel stoppedNup lazid 34 mg dailypsych prnAIMs 0 Anemia 648876912 D64.9 iron dailyvit c 500 dailyB 12 dailymonit or labs Hallucinations 9128700 R 44.3 resolved with nuplazidnu plazid 34 mg dailystop seroquel when this is startedmee t pt where she is and assure her [id number] Sandra Morse NP [facility] [address] [place] [address] 07/31/2023 09:23:45 08/02/2023 09:21:10 Falls 605979727 R29.6 PT OT eval and treatfall precaution sfrequent safety checkshigh fall risk Fracture o f neck of femur 7059885 S72.001A tylenol 650mg tidrefuses other pain medication [...] ne 5 mg bidmonitor for tremors Hypothyroidism 59633158 E03.8 levothyrox ine 75 mcg dailyTSH x 1 to monitor Vitamin D deficiency 347 76054 E55.9 D3 2000 ldxolm78 mecobalami n 1000mcg po daily Depressive disorder 3548 9007 F32.A seroquel 12.5 mg bid and 25 mg hsnuplazid 34 mg po dailypsych prnAIMs 0 Anemia 939065397 D64.9 iron dailyvit c 500 dailyB 12 dailymonit or labs Hallucinations 2249869 R 44.3 resolved in hospital per pt? ecoli ua culturemon itor Mild alcoh ol dependence 871890880 F10.20 states drinks 5 beers per day, ;[facility]/s of withdrawal s noted Cigarette smoker 6380848 7 F17.210 states only smokes 2 cigarettes per monthno nrt, refusesmon itor and support quitting [id number] Elly Phillips MD [address] [place] [address] 08/01/2023 17:39:18 08/03/2023 06:57:14 Fracture of neck of femur 6499478 S72.044D Continue APAP 650 mg TIDContinu e lovenox 40 mg sq qd for 6 wks post-opNee ds PT/OT for strengthen ing, balance, gait training, safety and function.C ontinue fall precaution s.Monitor for safety.F/U with ortho as planned Falls 870414408 R29.6 As above.Kevin est issue is poor [...] el was stopped when Nuplazid started. Hypothyroidism 21502337 E03.8 TSH 4.75, no FT4 done, but had been 5.06 in 05/2023.Con tinue levothyrox ine 75 mcg qdRecheck TSH with FT4 with next labs. Vitamin D deficiency 347 14455 E56.8 Continue vitamin D3 1000 IU qdMonitor as outpt. Anemia 208989918 D64.89 Multifacto rial. Macrocytic RBCs could indicate EtOH component. Continue FeSO4 324 mg qd with vitamin C 500 mg qd for absorption , and vitamin B12 1000 mcg qd.Monitor labs Cigarette smoker 3702538 7 F17.210 Intermitte nt smoker, no need for nicotine replacemen t at this time.She is not interested in quitting.C ontinue to encourage cessation. Mild alcoh ol dependence 479073232 F10.20 Reportedly drinks fairly regularly, but not to excess.But could be contributi ng to fall risk.Jerome nue to discuss with pt and . [id number] Sandra Morse NP [address] [address] 08/04/2023 12:38:17 08/18/2023 16:18:30 Fracture of neck of femur 8271405 S72.044D Continue start oxycodone 5 mg po q am and q 6 hours prn painAPAP 650 mg TIDlovenox 40 mg sq qd for 6 wks post-op(42 days total)Need s PT/OT for strengthen ing, balance, gait training, safety and function.C ontinue fall precaution s.Monitor for safety.F/U with ortho as planned Falls 662154721 R29.6 As above.Kevin est issue is poor safety awareness. Unclear if pt can continue to live at home, will need to be assessed while here. Parkinson's disease 9009 9000 G20 With dementia and hallucinat ions, can also be quite clear at times.Cont inueRytary 23.75/95 mg ER 4 caps qAM and 3 caps in afternoon and qhs'selegi line 5 mg BIDNuplazi d 34 mg qd.F/U with neuro as planned.Ps ych consult prn.Seroqu el was stopped when Nuplazid started. Hypothyroidism 60714898 E03.8 TSH 4.75, no FT4 done, but had been 5.06 in 05/2023.Con tinue levothyrox ine 75 mcg qdRecheck TSH with FT4 with next labs. Vitamin D deficiency 347 55523 E56.8 Continuevi tamin D3 1000 IU qdMonitor as outpt. Anemia 904709293 D64.89 Multifacto rial.Jerome nue FeSO4 324 mg [...] ID Dodd Member ID Guarantor Name 07/11/2023 1 [place]: [employer] Suzan Lindo [id number] Suzan Lindo 07/11/2023 2 [facility] [id number] Suzan Lindo [id number] Suzan Lindo 07/22/2023 1 [place] [employer] Suzan Lindo [id number] Suzan Lindo 07/22/[address] [facility] [id number] Suzan Lindo [id number] Suzan Lindo 07/31/2023 1 [place] [employer] Suzan Lindo [id number] Suzan Lindo 07/31/[address] [facility] [employer] [id number] Suzan Lindo [id number] Suzan Lindo 08/01/2023 1 [place] [facility] Suzan Garciatuliohector [id number] Suzan Garciaphilippe 08/01/2023 2 [facility] [id number] Suzan Lindo [id number] Suzan Garciaphilippe 08/04/2023 1 [place] [facility] Suzan Garciatuliohector [id number] Suzan Garciaphilippe 08/04/2023 2 [facility] [id number] Suzan Garciatuliohector [id number] Suzan Garciaphilippe Notes Date Note Type Note Provider Name and Address Organization Details Recorded Time 07/11/2023 text/html seen today for 3 0 day routine rounding visit-82 yof admitted to for rehab after presenting to the hospital after a fall with fractured right femur, she underwent ORIF and [facility] 05/[facility]. shantelle out 06/11 CAOx2 sitting up in wheelchair, lungs clear, ambulating with PT and walker, her activity has increased, she is tolerating the Nuplazid and no further psychotic or delusional episodes noted or reported BIBIANA ALBA, PIETRO [address] [facility], [address], [place], [address], [employer] 07/11/2023 13:37:18 07/22/2023 text/html seen today for dishcarge summary-82 yof admitted to for rehab after presenting to the hospital after a fall with fractured right femur, she underwent ORIF and went to [facility] 05/31. shantelle out 06/11. CAOx2 sitting up in wheelchair, lungs clear, ambulating with PT and walker, she did the stairs with supervision, her activity has increased, she is tolerating the Nuplazid and no further psychotic or delusional episodes noted or reported BIBIANA ALBA, PIETRO [address] [facility], [address], [place], [address], [facility] 07/22/2023 10:58:17 07/31/2023 text/html Pt is seen for a n initial visit today. Patient admitted to from [facility] from 07/22-07/29/23 for ORIF [...] nutrition short term. Sandra Morse, PIETRO [address] [facility], [address], [place], [address], [facility] 07/31/2023 10:51:12 08/01/2023 text/html This is an [...] but couldn't. She was brought to the [facility] ED on the night [...] frequent falls, and HLD. Elly Phillips MD [address] [place] [address], [address], [place], [address], [facility] 08/01/2023 20:00:12 08/04/2023 text/html Pt is seen for a n acute visit today. Her PMH includes Parkinson's disease with dementia, s/p right femur fx in 05/2023 and refx in 07/2023, hypothyroidism, vitamin D deficiency, mild , cigarette smoker, OP, alcohol use-moderate, frequent falls, and HLD. Patient admitted to from [facility] from 07/22-07/29/23 for ORIF [...] s/p ORIF. She was brought to the [facility] ED on the night [...] and some delusions. She was transferred to [facility] for further rehab, and possible LTC on [...] nutrition short term. Sandra Morse, PIETRO [address] [facility], [address], [place], [address], [facility] 08/17/2023 18:33:47 OBGyn Episode No OBEpisode recorded.
--- OUTSIDE RECORDS SUMMARY | 2025-01-24 14:29 | XMS_ITS ---
Author Organization [facility] Address [address] [place] [address] Care Team Providers Care Analytical Lab Analyst Name Role Phone Omar Siu MD Primary Care Provider Karla Urias Unavailable [phone] Allergies No Known Allergies REASON FOR VISIT [...] Ordered Date Performed Result Body Sit e 84211-HLVIRTP NAIL, 6 OR MORE 12/10/2024 N/A Encounters Encounter Location Date Provider Diagnosis [facility] [address] [place] [address] 12/10/2024 Karla Miles Pain in right toe(s) M79.674 ; Onychomycosis B35.1 and Pain in left toe(s) M79.675 Assessments Encounter Date Diagnosis (ICD Code) Assessment Notes Treatment Notes Treatment Clinical Notes Section Notes 12/10/2024 Pain in right toe(s) (ICD-10 - M79.674) 12/10/2024 Onychomycosis (ICD-10 - B35.1) 12/10/2024 Pain in left toe(s) (ICD-10 - M79.675) Plan Of Treatment Pending Test Test Name Order Date [id number] NAIL, 6 OR MORE 12/10/2024 Next Appt Details Follow Up: 3 Months, Reason: Provider Name:Karla young, 04/01/2025 03:15:00 PM, [address] [place] [address], [id number], Procedure Notes * Category Sub-Category Detail Notes [...] use of a nail nipper and/or dremel-type jig grinder, to a more viable healthy nail [...] to maintain effectiveness in symptomatic relief - 69892 Progress Notes * Suzan LINDO NDOB:[birth year] (84 yo F)Acc No.[id number]:12/10/2024 Progress Note Patient:?Suzan LINDO N Provider:?Karla Miles DPM :1940???Age:84 Y???Sex:Female D ate:12/10/2024 Address:[address] [place], [place] [address], [phone] Pcp:Omar Siu MD Subjective: * Chief Complaints: [...] in Driveway. ?Marital status: . 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 ?Occupational exposure: none. * Medications:?TakingCarbidopa -Levodopa [...] use of a nail nipper and/or dremel-type jig grinder, to a more viable healthy nail [...] to maintain effectiveness in symptomatic relief - 49019.? * Procedure Codes:?82376 DEBRI DE NAIL, 6 OR MORE * Follow Up:?3 Months * Images: * Sign off status: Completed true * Provider:?Karla Miles DPM Date:?0 12/10/2024 Generated for Lindy dalton/Elisha/Pavelitting on:?01/24/2025 02:29 PM EDT History and Physical [...]
--- NOTE | 2025-01-24 14:34 | PC.NURSE ---
at bedside to put in suture to IV insertion/removal site in L FA
[2025-01-24 14:42] VITALS: BP 106/54; PULSE 80; RESP 15; O2SAT 99
--- NOTE | 2025-01-24 14:42 | PC.NURSE ---
No bleeding noted to sutured area of LFA; will cont to monitor site
[2025-01-24 15:35] VITALS: BP 106/54; PULSE 80; RESP 15; TEMP 36.2; O2SAT 99
== END 2025-01-24 15:37 | disposition home or self-care (01) ==
PROVIDERS: Emergency Provider Emergency Medicine; PCP Family Medicine
DX: T80.1XXA Vascular complications following infusion, transfusion and therapeutic injection, initial encounter (principal); Y84.8 Other medical procedures as the cause of abnormal reaction of the patient, or of later complication, without mention of misadventure at the time of the procedure; L76.22 Postprocedural hemorrhage of skin and subcutaneous tissue following other procedure; Y92.239 Unspecified place in hospital as the place of occurrence of the external cause
CPT/HCPCS: 12001; 36415; 85025; 85610; 99284; J2003

== ENCOUNTER 2025-08-25 09:49 | Inpatient (IN) | payer MEDICARE, OTHER, SELFPAY ==
[2025-08-25] VITALS (33 sets, daily range): BP systolic 43–127; BP diastolic 20–93; PULSE 56–142; RESP 12–46; TEMP 36.1; O2SAT 94–100; BMI 17.9
--- NOTE | ~2025-08-25 | CT_ITS ---
CLINICAL HISTORY: altered mentation CTA HEAD, bolus contrast injection. 3D reconstructions and MPRs:: Comparison: 01/22/2025 Right Carotid Siphon: Calcified plaque with mild stenosis. Right Anterior Cerebral Artery: A1 and A2 segments are unremarkable. There is peripheral cortical enhancement. Right Middle Cerebral Artery: M1 and M2 segments are unremarkable. There is peripheral cortical enhancement. Right Posterior Cerebral Artery: There is moderate focal stenosis of right P1 and high-grade focal stenosis of right P1 P2 junction. There is peripheral enhancement Left Carotid Siphon: Calcified plaque with mild stenosis. Left Anterior Cerebral Artery: A1 and A2 segments are unremarkable. There is peripheral cortical enhancement. Left Middle Cerebral Artery: M1 and M2 segments are unremarkable. There is peripheral cortical enhancement. Left Posterior Cerebral Artery: P1 and P2 segments are unremarkable. There is peripheral cortical enhancement. Basilar Artery: Unremarkable Venous drainage: Normal Impression: Moderate right P1 focal stenosis, stable and unchanged. 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 No new findings. CTA Neck , Bolus contrast injection, 3D reconstructions and MPRs: Comparison: 01/22/2025 Findings: Soft tissues of the neck are unremarkable Superior aorta and branch vessels origins contain calcified plaque with no stenosis. Right carotid: There is calcified plaque at the carotid bifurcation with 31% focal stenosis of right internal carotid origin. (NASCET) Right vertebral: No stenosis Left Carotid: Calcified bifurcation plaque with 56% focal stenosis of the left internal carotid origin. (NASCET). This number could be exaggerated due to calcium blooming artifact. Left Vertebral: No stenosis. 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 No aneurysm or dissection This document has been electronically signed by: Anselmo Villalba MD on 08/25/2025 11:48:53
--- NOTE | ~2025-08-25 | CT_ITS ---
CLINICAL HISTORY: altered mentation CT Head Without Contrast: Comparison: 01/22/2025 Findings: Cortical sulci are prominent. There is ex vacuo dilatation of the ventricles. Scattered periventricular focal white matter hypodensities are due to microangiopathy of athero sclerosis, particularly noted in the right frontal lobe. A remote cortical infarct involving right temporal occipital watershed is unchanged with cortical encephalomalacia. Basal ganglia are unremarkable No shift in midline structures No intraparenchymal bleeding or abnormal extra axial blood fluid collections Normal pituitary size Clear paranasal sinuses Unremarkable orbital structures No depressed fractures. A benign 6 mm calcification is located in the inner table of the posterior right parietal bone, unchanged from previous exam. Impression: Chronic involutional volume loss. No acute findings, particularly no signs of acute infarction. ASPECTS score 10, NORMAL This document has been electronically signed by: Anselmo Villalba MD on 08/25/2025 11:20:39
--- NOTE | ~2025-08-25 | XR_ITS ---
CLINICAL HISTORY: altered mentation 1 view chest x-ray. Comparison: 01/22/2025 Findings: Heart size normal. The pulmonary vasculature is prominent and there is bilateral interstitial pulmonary edema. Bilateral basilar atelectasis . There is asymmetric increased opacity in the right lung base No acute fracture. Impression: 1. Normal heart size with bilateral diffuse interstitial pulmonary edema. 2. Right lung base opacity consistent with acute alveolar pulmonary infection/early pneumonia. This document has been electronically signed by: Anselmo Villalba MD on 08/25/2025 13:08:35
--- NOTE | 2025-08-25 09:54 | ED_ITS ---
HPI - Altered Mental Status General Chief Complaint: Altered Mental Status Stated Complaint: HYPOTENSIVE Time Seen by Provider: 08/25/25 09:54 Source: EMS Mode of arrival: EMS Limitations: altered mental status History of Present Illness ED Provider: HPI narrative: 85-year-old woman with reports of Parkinson's dementia, history of CVA, history UTIs, went to bed at 08:30 p.m. last night being well, today what has been woke up he found in his wheelchair that point reportedly she was unresponsive and EMS reported when they found her initially she was not responding and was noted to be hypotensive, not hypoglycemic and at some point by the time patient was arriving to the ER she was significantly delirious, she was agitated, spitting, cursing, ripping at her IVs, yelling for help. I we will await for family to obtain additional information Related Data Home Medications ?Medication ?Instructions ?Recorded ?Confirmed levothyroxine 75 mcg tablet 75 mcg PO DAILY@0600 01/1908/25/25 quetiapine 25 mg tablet 25 mg PO BEDTIME PRN Sleep 0 12/18/24 08/25/25 carbidopa ER 61.25 mg-levodopa 245 1 cap PO QID 08/25/25 mg capsule,extended release (Rytary) Previous Rx's ?Medication ?Instructions ?Recorded aspirin 81 mg chewable tablet 81 mg PO DAILY #30 tabs 12/21/24 cefuroxime axetil 500 mg tablet 500 mg PO BID #10 tabs 08/27/25 Allergies Allergy/AdvReac Type Severity Reaction Status Date / Time alendronate sodium (From AdvReac Unknown Unknown Verified 08/25/25 10:12 Fosamax) Review of Systems 2 Review of Systems: Yes Unobtainable due to mental condition PMFSH Past Medical History Medical History Multifactorial dementia Dementia with behavioral disturbance Parkinson's disease Aortic stenosis, mild Hypothyroidism Surgical History Hx of colonoscopy History of hand surgery History of total hip replacement Family History Family History Sister AAA (abdominal aortic aneurysm) Social History Social History Household Members: Spouse Household Members Other:: was a rehab and home for 1 day Housing: House Do you presently have visiting nurse or other home services: Yes Alcohol intake: former 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 Patient Tobacco Use Status: Former Tobacco user Tobacco use type: Cigarette Cigarettes Per Day: 4 Years Smoked: 35 Second Hand Smoke Exposure: No Advance Directives Date on File: 08/10/23 service: No Current occupational status: retired and disabled 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 Physical Exam ED Exam Exam: Patient extremely agitated and combative Does not follow verbal instructions Noted to be moving upper and lower extremities symmetrically Heart is tachycardic, radial pulses +2 bilaterally No obvious stridor or wheezing noted Vital Signs: Vital Signs - 24 hr 08/25/25 10:11 08/25/25 10:24 08/25/25 10:27 Temperature 97.0 F Pulse Rate 142 H 133 H 129 H Respiratory Rate 46 H 35 H 29 H Blood Pressure 126/93 H 84/42 L 72/36 L Pulse Oximetry 98 98 100 Oxygen Delivery Method Room Air Room Air Room Air 08/25/25 10:35 08/25/25 10:39 08/25/25 10:47 Temperature Pulse Rate 115 H 111 H 111 H Respiratory Rate 22 H 19 40 H Blood Pressure 72/41 L 77/40 L 75/39 L Pulse Oximetry 97 96 97 Oxygen Delivery Method Room Air Room Air Room Air 08/25/25 10:56 08/25/25 11:00 08/25/25 11:09 Temperature Pulse Rate 107 H 103 H 62 Respiratory Rate 12 16 17 Blood Pressure 69/36 L 75/37 L 45/24 L Pulse Oximetry 95 95 100 Oxygen Delivery Method Room Air Room Air Room Air 08/25/25 11:14 08/25/25 11:14 08/25/25 11:17 Temperature Pulse Rate 67 56 Respiratory Rate 19 Blood Pressure 46/28 L 45/25 L 46/24 L Pulse Oximetry 100 Oxygen Delivery Method Room Air 08/25/25 11:22 08/25/25 11:27 08/25/25 11:32 Temperature Pulse Rate 66 72 69 Respiratory Rate Blood Pressure 43/23 L 45/22 L 47/22 L Pulse Oximetry Oxygen Delivery Method 08/25/25 11:33 08/25/25 11:37 08/25/25 11:42 Temperature Pulse Rate 77 95 114 H Respiratory Rate 18 Blood Pressure 47/21 L 57/30 L 74/28 L Pulse Oximetry 100 Oxygen Delivery Method Room Air 08/25/25 11:47 08/25/25 11:48 08/25/25 11:52 Temperature Pulse Rate 108 H 108 H 105 H Respiratory Rate 21 H Blood Pressure 64/30 L 73/33 L 75/20 L Pulse Oximetry 95 Oxygen Delivery Method Room Air 08/25/25 11:57 08/25/25 12:02 08/25/25 12:02 Temperature Pulse Rate 119 H 115 H 115 H Respiratory Rate 18 Blood Pressure 77/32 L 82/30 L 80/38 L Pulse Oximetry 94 Oxygen Delivery Method Room Air 08/25/25 12:08 08/25/25 12:13 08/25/25 12:18 Temperature Pulse Rate 98 140 H 109 H Respiratory Rate Blood Pressure 80/33 L 95/35 L 97/37 L Pulse Oximetry Oxygen Delivery Method 08/25/25 12:46 08/25/25 13:04 08/25/25 13:06 Temperature Pulse Rate 111 H 113 H 114 H Respiratory Rate 15 18 Blood Pressure 122/60 127/57 L 117/68 Pulse Oximetry 98 96 Oxygen Delivery Method Room Air Room Air 08/25/25 14:15 08/25/25 14:22 Temperature Pulse Rate 125 H 109 H Respiratory Rate 14 Blood Pressure 116/57 L 97/50 L Pulse Oximetry 96 Oxygen Delivery Method Room Air BMI result Body Mass Index 17.9 Medications Administered Discontinued Medications Generic Name Dose Route Start Last Admin Trade Name Darion PRN Reason Stop Dose Admin Aspirin 81 mg 08/26/25 09:00 08/27/25 08:43 Aspirin 81 Mg Tab.Chew PO 81 mg DAILY AMY Administration Ceftriaxone Sodium 1 gm 08/26/25 09:00 08/27/25 08:44 Ceftriaxone Sodium 1 Gm Vial IVPUSH Not Given Q24H AMY Enoxaparin Sodium 40 mg 08/27/25 09:30 08/27/25 08:46 Enoxaparin Sodium 40 Mg/0.4 Ml Syringe SUBCUT 40 mg Q24H AMY Administration Sodium Chloride 1,332 mls @ 1,332 mls/hr 08/25/25 10:26 08/25/25 11:32 Ns 30 ml/kg infuse over 1 hr (1332 ml) 08/25/25 11:25 Infused IV Infusion .Q1H STA Piperacillin Sod/Tazobactam 50 mls @ 100 mls/hr 08/25/25 10:27 08/25/25 11:08 Sod 3.375 gm/ Sodium Chloride IV 08/25/25 10:56 Infused ONCE ONE Infusion Albumin Human 100 mls @ 133.333 mls/hr 08/25/25 10:39 08/25/25 11:28 Kedbumin 25 % IV 08/25/25 11:23 Infused Q1H STA Infusion Lactated Ringer's 1,000 mls @ 0 mls/hr 08/25/25 10:45 08/25/25 17:51 Lr IV Infused .Q0M AMY Infusion Wide Open Norepinephrine Bitartrate 8 mg in 250 mls @ 0 mls/hr 08/25/25 11:15 08/25/25 18:09 Levophed IVCONT Infused .Q0M AMY Titration Protocol Per Protocol Vancomycin HCl 1,000 mg/ 270 mls @ 270 mls/hr 08/25/25 12:40 08/25/25 13:46 Sodium Chloride IV 08/25/25 13:39 Infused ONCE ONE Infusion Lactated Ringer's 1,000 mls @ 999 mls/hr 08/25/25 14:00 08/25/25 17:07 Lr IV Not Given .Q1H1M AMY Wide Open Magnesium Sulfate 2 gm in 50 mls @ 25 mls/hr 08/25/25 13:58 08/25/25 16:11 Magnesium Sulfate/H2o IV 08/25/25 15:57 Infused ONCE ONE Infusion Magnesium Sulfate 2 gm in 50 mls @ 25 mls/hr 08/26/25 08:48 08/26/25 13:59 Magnesium Sulfate/H2o IV 08/26/25 10:47 Infused ONCE ONE Infusion Iohexol 100 ml 08/25/25 10:56 08/25/25 10:56 Iohexol 350 Mg/Ml 100 Ml Infus..Btl IV 08/25/25 10:57 65 ml ONCE ONE Administration Ketamine HCl 50 mg 08/25/25 10:00 08/25/25 10:05 Ketamine Hcl 500 Mg/5 Ml Vial IM 08/25/25 10:01 50 mg ONCE ONE Administration Ketamine HCl 50 mg 08/25/25 10:12 08/25/25 10:15 Ketamine Hcl 500 Mg/5 Ml Vial IM 08/25/25 10:13 50 mg ONCE ONE Administration Ketamine HCl 50 mg 08/25/25 12:20 08/25/25 12:26 Ketamine Hcl/Ns 50 Mg/5 Ml Syringe IVPUSH 08/25/25 12:21 50 mg STAT STA Administration Levothyroxine Sodium 75 mcg 08/27/25 06:00 08/27/25 05:06 Levothyroxine Sodium 75 Mcg Tablet PO 75 mcg DAILY@0600 AMY Administration Midazolam HCl 2.5 mg 08/25/25 10:46 08/25/25 11:00 Midazolam Hcl 5 Mg/Ml Vial IVPUSH 08/25/25 10:47 Not Given ONCE ONE Pat Own Med ( 1 cap 08/26/25 21:00 08/27/25 08:43 Carbidopa-Levodopa [ PO 1 cap Rytary] 61.25-245 Mg QID AMY Administration Capsule, Extended Relea Olanzapine 10 mg 08/25/25 09:54 08/25/25 09:55 Olanzapine 10 Mg Vial IM 08/25/25 09:55 10 mg ONCE ONE Administration Scopolamine 1.5 mg 08/25/25 15:45 08/25/25 16:08 Scopolamine 1.5 Mg Patch.Td.3 TRANSDERMA 1.5 mg Q72H AMY Administration Medical Decision Making Medical Decision Making MDM Narrative: 10:18 AM 08/25/2025 (Dr. Matteo Hoskins): At the time of my evaluation patient presented with significant delirious state, she had to have a spit angel placed and placed in the soft restraints and we will have to be chemically restrained as well, she is not redirectable, does not respond to any questioning, she has been yelling and cursing and clearly in decompensated delirium or dementia, other considerations include stroke, UTI, pneumonia, medication reaction, I will obtain additional information from family. My initial management is to stabilize her and make sure she has stable hemodynamics, I did use Zyprexa and ketamine and ketamine was you specifically as it was reported she was hypotensive in the field, she was not hypoglycemic. When she is more sedated we will send for imaging. NIH score could not be performed 10:31 AM 08/25/2025 (Dr. Matteo Hoskins): I spoke to patient's Bill on he corroborated on the story, and he did tell me that patient has Parkinson's dementia and updated that patient had to be sedated, does liannesy received 10 mg of Zyprexa and 50 mg of IM followed by another 15 mg of IM, she is getting 30 cc/kilos IV fluids, we will cover with Zosyn empirically UTI has a high consideration based on urine smell around the patient, and then we will manage her blood pressure as needed. And her told me that patient unless she has 1 of her spells can carry on a conversation that is her baseline and she is a DNR DNI 11:14 AM 08/25/2025 (Dr. Matteo Hoskins): Bedside ultrasound with good cardiac squeeze, IVC does not appear to be collapsed, so I think she is fairly fluid resuscitated, she has been coming more hypotensive and I ordered Levophed 11:54 AM 08/25/2025 (Dr. Matteo Hoskins): Currently on Levophed, will give 50 mg IV ketamine she has becoming extremely agitated again, ECG with what appears to be AFib with some ST-depression in V3 and V2 as we are lateral leads this may be end-organ damage from hypotension will add on troponin as well 1:15 PM 08/25/2025 (Dr. 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 Matteo Hoskins): I spoke to patient's who is at bedside and grandson we actually discussed her presentation and management and at this point I am going down on Levophed, but family is very comfortable with comfort measures only. Has been told me that last time she was in the hospital they were already ready for her to go . Differential Diagnosis Differential Diagnoses: The differential diagnosis associated with the presentation includes (See above) Admission/Observation Consideration of admission/observation: Escalation of care including admission/observation considered Lab Data MDM Lab Attestation statement: I reviewed the patient's lab results. 08/26/25 09:54 08/26/25 10:14 Labs: Lab Results 08/25/25 08/25/25 08/25/25 Range/Units 09:58 10:09 10:10 WBC 6.3 (4.8-10.8) X10*3/uL RBC 3.77 L (4.20-5.50) X10*6/uL Hgb 11.6 L (12.0-16.0) g/dl Hct 37.8 (37.0-47.0) % MCV 100.3 H (80.0-98.0) fL MCH 30.8 (27.0-33.0) pg MCHC 30.7 L (31.0-35.0) g/dl RDW 13.2 (11.0-16.0) % Plt Count 186 (160-400) X10*3/uL MPV 11.9 (9.4-12.3) fL Immature Gran % (Auto) 0.5 H (0.0-0.4) % Neut % (Auto) 50.5 (45-73) % Lymph % (Auto) 34.6 (20-40) % [place] % (Auto) 9.0 (2-11) % Eos % (Auto) 4.6 H (0-4) % Baso % (Auto) 0.8 (0-2) % Lymph # (Auto) 2.2 (1.2-4.9) X10*3/uL [place] # (Auto) 0.6 (0.1-1.2) X10*3/uL Eos # (Auto) 0.3 (0.0-0.4) X10*3/uL Baso # (Auto) 0.1 (0.0-0.2) X10*3/uL Abs Immat Gran (auto) 0.03 (0.00-0.03) X10*3/uL Absolute Neuts (auto) 3.2 (2.0-8.3) x10*3/uL Absolute Nucleated RBC 0.000 (0.0-0.012) X10*3/uL Nucleated RBC % (auto) 0.0 (0.0-0.2) /100WBC Hold Purple Top SEE NOTE Sodium (135-145) mmol/L Potassium (3.3-5.1) mmol/L Chloride (96-108) mmol/L Carbon Dioxide (22-29) mmol/L Anion Gap (12-20) BUN (9-16) mg/dL Creatinine (0.5-1.4) mg/dL Estim Creat Clear Calc Estimated GFR POC Glucose 147 H (60-115) mg/dL Random Glucose (60-115) mg/dL Lactic Acid (0.5-2.0) mmol/L Lactic Acid F/U @ 2Hr (0.5-2.0) mmol/L Calcium (8.4-10.2) mg/dL Magnesium (1.6-2.6) mg/dL Total Bilirubin (0.0-1.0) mg/dL AST (5-31) U/L ALT (0-31) U/L Alkaline Phosphatase (39-117) U/L Total Creatine Kinase (26-140) U/L Troponin I High Sens (<3.5-17.0) ng/L Total Protein (6.5-8.0) g/dL Albumin (3.5-5.0) g/dL TSH 2.51 (0.32-4.0) uIU/mL Urine Color Urine Appearance Urine pH (5.0-9.0) Ur Specific [place] (1.005-1.025) Urine Protein (Neg-Trace) mg/dL Urine Glucose (UA) (Negative) mg/dL Urine Ketones (Negative) mg/dL Urine Blood (Negative) Urine Nitrite (Negative) Ur Leukocyte Esterase (Negative) Urine RBC (0-2) /HPF Urine WBC (0-5) /HPF Ur Squamous Epith Cells (0-2) /HPF Urine Bacteria (None Seen) Hyaline Casts (0-2) /LPF COVID-19 (CASPER) (Negative) COVID-19 Clin Com 08/25/25 08/25/25 08/25/25 Range/Units 10:17 10:18 11:26 WBC (4.8-10.8) X10*3/uL RBC (4.20-5.50) X10*6/uL Hgb (12.0-16.0) g/dl Hct (37.0-47.0) % MCV (80.0-98.0) fL MCH (27.0-33.0) pg MCHC (31.0-35.0) g/dl RDW (11.0-16.0) % Plt Count (160-400) X10*3/uL MPV (9.4-12.3) fL Immature Gran % (Auto) (0.0-0.4) % Neut % (Auto) (45-73) % Lymph % (Auto) (20-40) % [place] % (Auto) (2-11) % Eos % (Auto) (0-4) % Baso % (Auto) (0-2) % Lymph # (Auto) (1.2-4.9) X10*3/uL [place] # (Auto) (0.1-1.2) X10*3/uL Eos # (Auto) (0.0-0.4) X10*3/uL Baso # (Auto) (0.0-0.2) X10*3/uL Abs Immat Gran (auto) (0.00-0.03) X10*3/uL Absolute Neuts (auto) (2.0-8.3) x10*3/uL Absolute Nucleated RBC (0.0-0.012) X10*3/uL Nucleated RBC % (auto) (0.0-0.2) /100WBC Hold Purple Top Sodium 140 (135-145) mmol/L Potassium 3.7 (3.3-5.1) mmol/L Chloride 117 H (96-108) mmol/L Carbon Dioxide 14 L (22-29) mmol/L Anion Gap 13 (12-20) BUN 15 (9-16) mg/dL Creatinine 0.77 (0.5-1.4) mg/dL Estim Creat Clear Calc 37.4 Estimated GFR > 60 POC Glucose (60-115) mg/dL Random Glucose 144 H (60-115) mg/dL Lactic Acid 10.8 H* (0.5-2.0) mmol/L Lactic Acid F/U @ 2Hr (0.5-2.0) mmol/L Calcium 7.2 L D (8.4-10.2) mg/dL Magnesium 1.5 L (1.6-2.6) mg/dL Total Bilirubin 0.3 (0.0-1.0) mg/dL AST 14 (5-31) U/L ALT < 6 (0-31) U/L Alkaline Phosphatase 39 (39-117) U/L Total Creatine Kinase 40 (26-140) U/L Troponin I High Sens < 2.7 (<3.5-17.0) ng/L Total Protein 3.9 L (6.5-8.0) g/dL Albumin 2.7 L (3.5-5.0) g/dL TSH (0.32-4.0) uIU/mL Urine Color Yellow Urine Appearance Clear Urine pH 7.0 (5.0-9.0) Ur Specific [place] 1.015 (1.005-1.025) Urine Protein Negative (Neg-Trace) mg/dL Urine Glucose (UA) Negative (Negative) mg/dL Urine Ketones Negative (Negative) mg/dL Urine Blood Trace H (Negative) Urine Nitrite Negative (Negative) Ur Leukocyte Esterase Trace H (Negative) Urine RBC 3-5 H (0-2) /HPF Urine WBC 0-5 (0-5) /HPF Ur Squamous Epith Cells 0-2 (0-2) /HPF Urine Bacteria 4+ (None Seen) Hyaline Casts 3-5 (0-2) /LPF COVID-19 (CASPER) (Negative) COVID-19 Clin Com 08/25/25 Range/Units 12:55 WBC (4.8-10.8) X10*3/uL RBC (4.20-5.50) X10*6/uL Hgb (12.0-16.0) g/dl Hct (37.0-47.0) % MCV (80.0-98.0) fL MCH (27.0-33.0) pg MCHC (31.0-35.0) g/dl RDW (11.0-16.0) % Plt Count (160-400) X10*3/uL MPV (9.4-12.3) fL Immature Gran % (Auto) (0.0-0.4) % Neut % (Auto) (45-73) % Lymph % (Auto) (20-40) % [place] % (Auto) (2-11) % Eos % (Auto) (0-4) % Baso % (Auto) (0-2) % Lymph # (Auto) (1.2-4.9) X10*3/uL [place] # (Auto) (0.1-1.2) X10*3/uL Eos # (Auto) (0.0-0.4) X10*3/uL Baso # (Auto) (0.0-0.2) X10*3/uL Abs Immat Gran (auto) (0.00-0.03) X10*3/uL Absolute Neuts (auto) (2.0-8.3) x10*3/uL Absolute Nucleated RBC (0.0-0.012) X10*3/uL Nucleated RBC % (auto) (0.0-0.2) /100WBC Hold Purple Top Sodium (135-145) mmol/L Potassium (3.3-5.1) mmol/L Chloride (96-108) mmol/L Carbon Dioxide (22-29) mmol/L Anion Gap (12-20) BUN (9-16) mg/dL Creatinine (0.5-1.4) mg/dL Estim Creat Clear Calc Estimated GFR POC Glucose (60-115) mg/dL Random Glucose (60-115) mg/dL Lactic Acid (0.5-2.0) mmol/L Lactic Acid F/U @ 2Hr 4.1 H* (0.5-2.0) mmol/L Calcium (8.4-10.2) mg/dL Magnesium (1.6-2.6) mg/dL Total Bilirubin (0.0-1.0) mg/dL AST (5-31) U/L ALT (0-31) U/L Alkaline Phosphatase (39-117) U/L Total Creatine Kinase (26-140) U/L Troponin I High Sens (<3.5-17.0) ng/L Total Protein (6.5-8.0) g/dL Albumin (3.5-5.0) g/dL TSH (0.32-4.0) uIU/mL Urine Color Urine Appearance Urine pH (5.0-9.0) Ur Specific [place] (1.005-1.025) Urine Protein (Neg-Trace) mg/dL Urine Glucose (UA) (Negative) mg/dL Urine Ketones (Negative) mg/dL Urine Blood (Negative) Urine Nitrite (Negative) Ur Leukocyte Esterase (Negative) Urine RBC (0-2) /HPF Urine WBC (0-5) /HPF Ur Squamous Epith Cells (0-2) /HPF Urine Bacteria (None Seen) Hyaline Casts (0-2) /LPF COVID-19 (CASPER) Negative (Negative) COVID-19 Clin Com See Note Independent Interpretation I performed an independent interpretation of an: EKG (68 beats per minute, AFib, V2 to V6 ST-depression as well as leads 1 and 2 and aVL), Plain X-Ray (Appears similar to prior x-rays interstitial edema is a consideration, and likely represents chronic interstitial lung disease) and CT Scan (No obvious hemorrhagic stroke) Radiology Impression Discussion of test interpretation with radiology: I have reviewed the radiologist's reading. Independent Historian Clinical information obtained from an independent historian. History obtained from or confirmed by: Spouse and EMS Procedures Ultrasound ED POC Ultrasound: EMERGENCY ULTRASOUND REPORT?Point of Care Cardiac (Echo-Focus), images I locally stored Emergent Cardiac for Indication: Hypotension Views Used: Parasternal long, parasternal short, 4 chamber, subxiphoid, IVC Pericardial Effusion/Tamponade Findings: Global LV Fxn: Preserved IVC Dilation and Resp Variation: IVC is less than 50% collapse Trace pericardial effusion, no RV strain good cardiac squeeze, fluid resuscitated 11:11 AM 08/25/2025 (Dr. Matteo Hoskins): Critical Care Time Critical Care Time Critical Care Time: Yes Total Critical Care Time: 75 Attestation: Time is exclusive of separately billable procedures. Time includes: direct patient care, patient reassessment, coordination of patient care, interpretation of data (laboratory data, pulse oximetry, arterial blood gases and chest xrays), review of patient's medical records, medical consultation and documentation of patient care. Procedures excluded from critical care time: central intravenous line placement and electrocardiography. Discharge Plan Discharge Clinical Impression: Comfort measures only status Patient Disposition: Admitted As Inpatient Interventions: Admission Worksheet (ED) Last Done: 08/25/25 16:44 Discharge Date/Time: 08/25/25 17:33
[2025-08-25] MEDS: OLANZapine 10 MG VIAL IM (09:55)
[2025-08-25 10:16] LABS: MANUAL DIFF FLAG NO
[2025-08-25 10:19] LABS: Hematocrit 37.8 % (37.0-47.0); Hemoglobin 11.6 g/dl (12.0-16.0); Imm Gran Abs Auto 0.03 X10*3/uL (0.00-0.03); Imm Gran Pct Auto 0.5 % (0.0-0.4); Lymphocytes Absolute Auto 2.2 X10*3/uL (1.2-4.9); Mean Corpuscular HGB Conc 30.7 g/dl (31.0-35.0); Mean Corpuscular Hemoglobin 30.8 pg (27.0-33.0); Mean Corpuscular Volume 100.3 fL (80.0-98.0); NRBC Abs Auto 0.000 X10*3/uL (0.0-0.012); NRBC Pct Auto 0.0 /100WBC (0.0-0.2); Platelet Count 186 X10*3/uL (160-400); Red Blood Count 3.77 X10*6/uL (4.20-5.50); White Blood Count 6.3 X10*3/uL (4.8-10.8)
[2025-08-25 10:26] LABS: Appearance Urine Clear; Glucose Urine UA Negative (Negative); PH 7.0 (5.0-9.0); Specific Gravity - Urine 1.015 (1.005-1.025); UMIC TRIGGER UACC YES
[2025-08-25] MEDS: SODIUM CHLORIDE 1332 ML IV (10:28)
[2025-08-25 10:29] LABS: Glucose, Whole Blood 147 mg/dL (60-115)
--- OUTSIDE RECORDS SUMMARY | 2025-08-25 10:34 | XMS_ITS | Patient Health Record ---
Author Organization [facility] Address [address] [place] [address] Care Team Providers Care Bicycle I Assembler Name Role Phone Omar Siu MD Primary Care Provider Karla Urias Unavailable [phone] [address] [place] Unavailable [phone] Allergies No Known Allergies Reason For Referral No Information Medications Medication SIG (Take, Route, Frequency, Duration) Notes Start Date End Date Status Selegiline Not-Takin g Doxycycline Hyclate 100 MG 1 capsule Orally Once a day; Duration: 10 day(s) temp 3 or 4 left 03/16/2022 Not-Taking Memantine HCl ER 7 MG Oral; Duration: 30 Not-Taking Levothyroxine Sodium 75 MCG 1 tablet every morning on an empty stomach Orally Once a day; Duration: 30 day(s) Active Inhaler Decongestant Active Carbidopa-Levodopa 25-100 MG 1.5tablet Oral Three times a day Active Rytary 61.25-245 MG Oral; Duration: 30 Active Vitamin D Active Vitamin B12 100 MCG 1 tablet Orally Once a day Active Selegiline HCl 5 MG 1 tablet with breakfast and lunch Orally Twice a day; Duration: 30 day(s) Active Immunizations Vaccine Route Administration Date Status Comme nts Influenza Unknown 10/06/2022 Administered Influenza Unknown 09/14/2024 Administered COVID-19 Moderna Vaccine Unknown 10/04/2021 Administered 1st 12/14/20 2nd 01/11/21 Social History Tobacco Use: Social History Observation Description Date Details (start date - stop date) Never Smoker NA - NA Alcohol Screen Question Answer Notes Did you have a drink contain ing alcohol in the past year? Yes How often did you have a dri nk containing alcohol in the past year? 2 to 4 times a month (2 points) Points 2 Interpretation Negative Tobacco use other than smoking: Question Answer Notes Are you an other tobacco user? No Tobacco Control (Standard) Question Answer Notes Tobacco use: Nonsmoker AUDIT-C (Standard) Question Answer Notes Did you have a drink containing alcohol in the p ast year? 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 confirmed Problem Bilateral atherosclerosis of arteries of lower limbs (disorder) (43137227386541360 ) Unspecified atherosclerosis of [place] arteries of extremities, bilateral legs (I70.203) Active confirmed Problem Acquired hallux valgus (25192684) Hallux valgus (acquired), right foot (M20.11) Active confirmed Problem Non-pressure chronic ulcer of other part of left foot limited to breakdown of skin (L97.521) Active confirmed Problem Non-pressure chronic ulcer of other part of right foot limited to breakdown of skin (L97.511) Active confirmed Problem Acquired hammer toe of right foot (0440723370773133) Other hammer toe(s) (acquired), right foot (M20.41) Active confirmed Problem Acquired hammer toe of left foot (2479903541732060) Other hammer toe(s) (acquired), left foot (M20.42) Active confirmed Problem Parkinson disease (12481108) Parkinson disease (G20) Active confirmed Vital Signs Blood pressure diastolic 80 mm Hg 07/03/2025 Height 5 ft 3 in in 07/03/2025 Blood pressure systolic 121 mm Hg 07/03/2025 Weight 115 lbs 07/03/2025 BMI 20.37 kg/m2 07/03/2025 Procedures Procedure Date Ordered Date Performed Result Body Sit e 96707-ARDVJZM NAIL, 6 OR MORE 12/10/2024 N/A 06913-GCAVQJF NAIL, 6 OR MORE 04/01/2025 N/A 75741-YTBEMUK NAIL, 6 OR MORE 07/03/2025 N/A Encounters Encounter Location Date Provider Diagnosis [address] [address] 09/13/2024 Lane Chad Tinea unguium B35.1 ; Pain in right toe(s) M79.674 ; Pain in left toe(s) M79.675 ; Unspecified atherosclerosis of [place] arteries of extremities, bilateral legs I70.203 ; Other hammer toe(s) (acquired), left foot M20.42 ; Other hammer toe(s) (acquired), right foot M20.41 and Hallux valgus (acquired), right foot M20.[address] [address] 12/10/2024 Karla Miles Pain in right toe(s) M79.674 ; Onychomycosis B35.1 and Pain in left toe(s) M79.[address] [address] 04/01/2025 Karla Miles Pain in right toe(s) M79.674 ; Onychomycosis B35.1 and Pain in left toe(s) M79.[address] [address] 07/03/2025 Karla Miles Pain in right toe(s) M79.674 ; Onychomycosis B35.1 and Pain in left toe(s) M79.675 Assessments Encounter Date Diagnosis (ICD Code) Assessment Notes Treatment Notes Treatment Clinical Notes Section Notes 09/13/2024 Tinea unguium (ICD-10 - B35.1) 09/13/2024 Pain in right toe(s) (ICD-10 - M79.674) 12/10/2024 Pain in right toe(s) (ICD-10 - M79.674) 04/01/2025 Pain in right toe(s) (ICD-10 - M79.674) 07/03/2025 Pain in right toe(s) (ICD-10 - M79.674) 07/03/2025 Onychomycosis (ICD-10 - B35.1) 04/01/2025 Onychomycosis (ICD-10 - B35.1) 12/10/2024 Onychomycosis (ICD-10 - B35.1) 09/13/2024 Pain in left toe(s) (ICD-10 - M79.675) 09/13/2024 Unspecified atherosclerosis of [place] arteries of extremities, bilateral legs (ICD-10 - I70.203) 04/01/2025 Pain in left toe(s) (ICD-10 - M79.675) 07/03/2025 Pain in left toe(s) (ICD-10 - M79.675) 12/10/2024 Pain in left toe(s) (ICD-10 - [...] X ray : Foot, right 3V 07/07/2022 72895-AWGIYMZ NAIL, 6 OR MORE 12/10/2024 59093-CUHAJXW NAIL, 6 OR MORE 04/01/2025 89102-RWIFLGL NAIL, 6 OR MORE 07/03/2025 01495-QDOESDC NAIL, 6 OR MORE 02/01/2018 72092-JUSQGQO NAIL, 6 OR MORE 10/16/2018 22337-NZLSGFA NAIL, 6 OR MORE 07/05/2018 55527-PGMWDUH NAIL, 1-5 08/31/2017 85289-XBGOTPJ NAIL, -11/23/2017 97074-MJQOMBT NAIL, -06/05/2015 63453-VTHOMNQ NAIL, -5 10/06/2015 19050-PDEBZRJ NAIL, -5 03/10/2016 48108-EEHIGNE NAIL, -5 07/07/2016 89394-LKYZVXL NAIL, -5 11/01/2016 69307-RLFPEXF NAIL, -02/21/2017 85807-LAIRTMV NAIL, 1-5 05/23/2017 41868-Okyo Destruction, -14 05/23/2017 45292-Ofzd Destruction, -14 08/12/2017 77193-Fsvn Destruction, -14 02/21/2017 43388-Hyco Destruction, -14 11/01/2016 71715-Roxe Destruction, -07/07/2016 04571-Xpgo Destruction, -03/10/2016 84586-Zzyp Destruction, 11-2710/06/2015 86161-Gwyu Destruction, 11-2706/05/2015 14270-Vhto Destruction, 11-2711/23/2017 37489-Ngju Destruction, 11-2708/31/2017 87137-Oxlj Destruction, 11-2702/01/2018 90558-Apea Destruction, 11-2705/03/2018 46460-Hgyj Destruction, 11-2707/05/2018 57009-Tocq Destruction, 11-2710/16/2018 60453-Oias Destruction, 11-2703/20/2020 49586- Debride <25 sq cm 01/26/2012 15836- Debride <25 sq cm 02/24/2012 98313- Debride <25 sq cm 05/10/2012 75055- Debride <25 sq cm 12/10/2021 81100-JPSNVRE SKIN/TISSUE 07/07/2022 56284 I&D ABSCESS- SIMPLE,SINGLE 022 24199-LGTM SKIN LESIONS, OVER 4 08/04/20 97321-EDDA SKIN LESIONS, 2 TO 4 12/10/19 88565-INBW SKIN LESIONS, 2 TO 4 11/26/19 42263-PFKI SKIN LESIONS, 2 TO 4 03/11/20 35788-HFPE SKIN LESIONS, 2 TO 4 06/10/20 41845-EBFK SKIN LESIONS, 2 TO 4 09/09/20 56874- Removal of Foreign Body, Subcut 0 06/10/2021 75852- Nail Unit Biopsy 05/03/2018 Next Appt Details Provider Name:Karla Walker hector, 10/03/2025 03:15:00 PM, [address] [facility], [place], [address], Insurance Providers Payer Name Payer Address Payer Phone Subscriber Number Group Number Insured Name Patient Relationship to Insured Coverage Start Date Coverage End Date Medicare National [employer] [address] [place] [address] [id number] Suzan Lindo Self - patient is the insured 5 [employer] ([employer]) [address] [place] [address] [id number] Suzan Lindo Self - patient is the insured Medical (General) History Medical History History ICD Code thyroid disorder Parkinsons disease Surgical History Surgery Date(Month/Year) left hip surgery - fx [facility] [place] 01/01/2019 cataracts 04/2019, 05/2019 L Hand Surgery 08/2022 Hospitalization History Reason Date(Month/Year)
--- OUTSIDE RECORDS SUMMARY | 2025-08-25 10:34 | XMS_ITS | Clinical Summary ---
Author Organization Eric [facility] Address [address] [address] Phone Care Team Providers Care Cargo Service Supervisor Name Role Phone Pcp, Unknown Primary Care Provider Unavailabl e Social History Tobacco Use Types Packs/Day Years Used Date Smoking Tobacco: Never Assessed Education Answer Date Recorded Are you interested in more education? Not on medina e 08/16/2023 Are you concerned about learning? Not on file 08/16/2023 No 08/16/2023 No 08/16/2023 Digital Access Answer Date Recorded No 08/16/2023 No 08/16/2023 Reliable internet access at home? Not on file 08/16/2023 Device with a working camera? Not on file Comments Unknown Sex and Gender Information Value Date Recorded Sex Assigned at Not on file Legal Sex Female 3:31 PM EDT Gender Identity Not on file Sexual Orientation Not on file Plan of Treatment Not on file Medical Devices Not on file Insurance MEDICARE PART A & B MEDICARE PART A & B MEDICARE PART A & B MEDICARE PART A & B MEDICARE PART A & B MEDICARE PART A & B Care Teams Cargo Service Supervisor Relationship Specialty Start Date End Date Pcp, Unknown PCP - General 08/16/23 Additional Source Comments The information contained in this document represents components of the legal health record. It is not the complete legal health record.[facility]
--- OUTSIDE RECORDS SUMMARY | 2025-08-25 10:34 | XMS_ITS | Encounter Summary ---
Author Organization Eric [facility] Address [address] [facility] [address] [place] [address] Phone Care Team Providers Care Wire Bound Box Machine Operator Name Role Phone Pcp, Unknown Primary Care Provider Unavailabl e Encounter Details Date Type Department Care Team (Late st Contact Info) Description 08/16/2023 Transcribe Orders [facility] Specimen Processing [address] [place], [place] [phone] Park Barnes MD [address] [place] [address] [phone] [email or web address] Screening for unspecified condition (Primary Dx) Social History Tobacco Use Types Packs/Day Years [...] on file Sexual Orientation Not on file documented as of this encounter Plan of Treatment Not on file documented as of this encounter Results * (ABNORMAL) Comprehensive metabolic panel (08/16/2023 4:35 PM EDT) SODIUM 144 133 - 146 mmol/L [facility] POTASSIUM 4.4 3.3 - 5.1 mmol/L [facility] CHLORIDE 111(H) 96 - 108 mmol/L [facility] CO2 21 21 - 35 mmol/L [facility] BUN 25(H) 6 - 19 mg/dL [facility] CREATININE 0.70 0.5 - 1.5 mg/dL [facility] GLUCOSE 83 70 - 99 mg/dL [facility] ALBUMIN 4.4 3.9 - 4.8 g/dL [facility] TOTAL PROTEIN 5.9(L) 6.5 - 8.0 g/dL [facility] CALCIUM 9.5 8.4 - 10.3 mg/dL [facility] ALKALINE PHOSPHATASE 235(H) 39 - 117 U/L [facility] TOTAL BILIRUBIN 0.5 0.0 - 1.2 mg/dL [facility] AST 14 0 - 37 U/L [facility] ALT 9 0 - 40 U/L [facility] GLOBULIN 1.5 1 - 4.8 g/dL [facility] EGFR 86 >59 mL/min/1.7 3m2 [facility] Comment:Estimated glomerular filtration rate calculated using the CKD-EPI refit equation. ANION GAP 16 10 - 20 mmol/L [facility] Blood 08/16/2023 4:35 PM EDT 08/16/2023 4:39 PM EDT us Park Barnes MD LAB BLOOD ORDERABLES Taty arnold Result Performing Organization Address City/State/[facility] Co de Phone Number [address] [address] * (ABNORMAL) CBC (08/16/2023 4:35 PM EDT) WBC 5.38 4.00 - 11.00 K/uL [facility] RBC 3.60(L) 3.72 - 5.30 M/uL [facility] HGB 11.9 11.4 - 15.9 g/dL [facility] HCT 37.8 34.2 - 46.8 % [facility] PLT 237 140 - 430 K/uL [facility] MCV 105.0(H) 78.0 - 97.0 fL [facility] MCH 33.1(H) 25.0 - 33.0 pg [facility] MCHC 31.5(L) 32.0 - 36.0 g/dL [facility] RDW 13.2 11.0 - 16.0 % [facility] MPV 12.0 8.4 - 12.8 fl [facility] Blood 08/16/2023 4:35 PM EDT 08/16/2023 4:39 PM EDT us Park Barnes MD LAB BLOOD ORDERABLES Taty arnold Result Performing Organization Address City/State/[facility] Co de Phone Number [facility] [address] [place] [address] documented in this encounter Visit Diagnoses Diagnosis Screening for unspecified condition- Primary documented in this encounter Care Teams Wire Bound Box Machine Operator Relationship Specialty Start Date End Date Pcp, Unknown PCP - General 08/16/23 documented as of this encounter Additional Source Comments The information contained in this document represents components of the legal health record. It is not the complete legal health record.[facility]
--- OUTSIDE RECORDS SUMMARY | 2025-08-25 10:35 | XMS_ITS | Encounter Summary ---
Author Organization Eric [facility] Address [address] [place] [phone] Phone Care Team Providers Care Appraiser Timber Name Role Phone Pcp, Unknown Primary Care Provider Unavailabl e Encounter Details Date Type Department Care Team (Latest Contact Info) Description 08/29/2023 Transcribe Orders [facility] Laboratory [address] [place], [place] [id number] Park Barnes MD [address] [place] [address] [phone] [email or web address] et Metabolic encephalopathy (Primary Dx) Social History Tobacco Use Types [...] encounter Results * (ABNORMAL) Comprehensive metabolic panel (08/29/2023 5:22 AM EDT) SODIUM 143 133 - 146 mmol/L [facility] POTASSIUM 4.5 3.3 - 5.1 mmol/L [facility] CHLORIDE 108 96 - 108 mmol/L [facility] CO2 26 21 - 35 mmol/L [facility] BUN 24(H) 6 - 19 mg/dL [facility] CREATININE 0.60 0.5 - 1.5 mg/dL [facility] GLUCOSE 76 70 - 99 mg/dL [facility] ALBUMIN 4.0 3.9 - 4.8 g/dL [facility] TOTAL PROTEIN 5.3(L) 6.5 - 8.0 g/dL [facility] CALCIUM 8.8 8.4 - 10.3 mg/dL [facility] ALKALINE PHOSPHATASE 139(H) 39 - 117 U/L [facility] TOTAL BILIRUBIN <0.2 0.0 - 1.2 mg/dL [facility] AST 14 0 - 37 U/L [facility] ALT 7 0 - 40 U/L [facility] GLOBULIN 1.3 1 - 4.8 g/dL [facility] EGFR 89 >59 mL/min/1.7 3m2 [facility] Comment:Estimated glomerular filtration rate calculated using the CKD-EPI refit equation. ANION GAP 14 10 - 20 mmol/L [facility] Blood 08/29/2023 5:22 AM EDT 08/29/2023 1:52 PM EDT us Park Barnes MD LAB BLOOD ORDERABLES Taty arnold Result [facility] [address] [place] [address] documented in this encounter Visit Diagnoses Diagnosis Metabolic encephalopathy- Primary documented in this encounter Care Teams Appraiser Timber Relationship Specialty Start Date End Date Pcp, Unknown PCP - General 08/16/23 documented as of this encounter Additional Source Comments The information contained in this document represents components of the legal health record. It is not the complete legal health record.[facility]
--- OUTSIDE RECORDS SUMMARY | 2025-08-25 10:35 | XMS_ITS | Data Portability ---
Author Organization [facility], Main Office Address [address] [place] [address] Care Team Providers Care Material Yard Clerk Name Role Phone RAMA RIVERA Primary Care Provider LOBITO WORLEY - 2ND FLOOR OTHER Assessment No assessment recorded. Plan of Treatment Reminders Order Date Submit Date Provider Last Modified By Organization Details Last Modified Time Details Appointments None recorded. Lab None recorded. Referral None recorded. Procedures None recorded. Surgeries None recorded. Imaging None recorded. Medication Orders oxycodone 5 mg tablet 2022 023 [facility] , [address] [place], [address], 3 19:43:25 Patient TargetsNo targets recorded. Patient InstructionsNo instructions recorded. Reason for Referral None Reported. Problems Name Problem SNOMED Code Status Onset Date Resolution Date Notes Provider Name and Address Organization Details Recorded Time Fracture of neck of femur 5187581 Active 2018 Vilma Negrete [facility] 9 12:04:24 Parkinson' s disease 04586183 Active 2018 Vilma Negrete [facility], [facility] 9 12:04:34 Vitamin D deficiency 23644797 Active 2018 Vilmaangelia Negrete [facility] 9 12:04:42 Hypothyroi dism 91697448 Active 2018 Vilmaangelia Negrete [facility] 9 12:04:48 Falls 078795802 Active 2022 BIBIANA ALBA, PIETRO [address], [address], [place], [address], [facility] 3 11:36:12 Fracture of neck of femur 5776823 Active 2022 BIBIANA ALBA NP [address], [address], [place], [address], [facility] 3 11:36:32 Depressive disorder 00301847 Active 2022 BIBIANA ALBA NP [address], [address], [place], [address], [facility] 3 11:36:55 Anemia 863573290 Active 2022 BIBIANA ALBA NP [address], [address], [place], [address], [facility] 3 11:49:04 Cigarette smoker 77810239 Active 2022 Elly Phillips MD [address], [address], [place], [address], [facility] 3 20:00:08 Mild alcohol dependence 972190439 Active 2022 Elly Phillips MD [address], [address], [place], [address], [facility] 3 20:00:46 Hallucinat ions 8905162 Active 2022 with delusions BIBIANA ALBA NP [address], [address], [place], [address], [facility] 3 12:21:13 Problem Notes None recorded. Medical Equipment None [...] in Arterial blood by Pulse oximetry Systolic And Diastolic Provider Name and Address Organization Details Last Updated DateTime 3 160.02 cm 90 /min 16 /min 98 [degF] 97 % 97 % 123/78 mm[Hg] BIBIANA ALBA NP [address], [address], [place], [address], [facility] 3 13:32:14 Date Recorded Body height Heart rate Respiratory rate Body temperature Oxygen saturation Oxygen saturation in Arterial blood by Pulse oximetry Systolic And Diastolic Provider Name and Address Organization Details Last Updated DateTime 3 160.02 cm 80 /min 16 /min 98.1 [degF] 99 % 99 % 127/71 mm[Hg] BIBIANA ALBA NP [address], [facility] [address], [place], [address], [facility] 3 10:55:52 Date Recorded Body height Heart rate Respiratory rate Body temperature Oxygen saturation Oxygen saturation in Arterial blood by Pulse oximetry Systolic And Diastolic Provider Name and Address Organization Details Last Updated DateTime 3 160.02 cm 68 /min 16 /min 98.3 [degF] 98 % 98 % 122/58 mm[Hg] Sandra Morse NP [address] [facility] [address], [place], [address], [facility] 3 09:24:44 Date Recorded Body height Body mass index (BMI) Body weight Heart rate Respiratory rate Body temperature Oxygen saturation Oxygen saturation in Arterial blood by Pulse oximetry Systolic And Diastolic Provider Name and Address Organization Details Last Updated DateTime 3 160.02 cm 20.4 kg/m2 17812.1 2 g 67 /min 18 /min 97.9 [degF] 97 % 97 % 128/69 mm[Hg] Elly Phillips MD [address] [facility] [address], [place], [address], [facility] 3 17:48:43 Date Recorded Body height Body weight Heart rate Respiratory rate Body temperature Oxygen saturation Oxygen saturation in Arterial blood by Pulse oximetry Systolic And Diastolic Provider Name and Address Organization Details Last Updated DateTime 3 160.02 cm 01601.4 1 g 81 /min 18 /min 98 [degF] 95 % 95 % 123/76 mm[Hg] Sandra Morse NP [address], [facility] [address], [place], [address], [facility] 3 12:39:21 Social History Question Answer Notes LastModified by Organization Details LastModified Time Tobacco Smoking Status Current Some Day Smoker Sandra Morse, PIETRO [address], [address], [place], [address], [facility] 07/31/2023 10:43:08 Do You Have An Advance Directive? Yes Information not available 06/15/2023 How Many Years Have You Consumed Alcohol? 60 Information not available 06/16/2023 What Is Your Code Status? Full Code Information not available 06/15/2023 Where Do You Live? SingleLevelHouse Lives At Home With , 2-3 Entry Steps, Has Basement, But She Doesn't Go Down There Information not available 06/16/2023 Legal Guardian? No Information not available 06/16/2023 Do You Have A Medical Power Of Electric Vehicle Electrician? Yes Invoked Information not available 08/01/2023 What [...] The House Again. Information not available 08/01/2023 Has Tobacco Cessation Counseling Been Provided? Yes Not Interested In Quitting Information not available 08/01/2023 On What Date Was Tobacco Cessation Counseling Provided? 08/01/2023 Information not available 08/01/2023 How Many Years Have You Smoked Tobacco? 65 Information not available 08/01/2023 How Many Days In The Past Year Have You Consumed 4 Or More Drinks? 0 Information not available 06/16/2023 Sex: Female Functional Status Question Answer Note LastModified by Organizat ion Details LastModified Time How many times per week do you consume alcohol? 3-4 times per week says she's cut ack on this too, says she drinks about every other day. Information not available 08/01/2023 Do you use any illicit or recreational drugs? No Information not available 06/15/2023 Do you or have you ever used any other forms of tobacco or nicotine? No Information not available 06/15/2023 What is your level of alcohol consumption? Moderate Information not available 06/16/2023 Mental Status None recorded. Family History Relationship Description Onset Age of this Age Resolved Age Notes LastModified by Organization Details LastModified Time Father No current problems or disability iroua Not available 01/05 11:55:40 Mother No current problems or disability iroua Not available 01/05 11:55:40 Notes:N/C Medical History No medical history recorded. Gynecological HistoryNo gynecological history recorded. Obstetrics History GPAL:G 0 P 0 0 0 0 Immunizations Vaccine Type Date Status Note Provider Nam e and Address Organization Details Recorded Time SARS-COV-2 (COVID-19) vaccine, UNSPECIFIED 2 completed Uzma Chino [facility] 06/28/2023 13:39:18 SARS-COV-2 (COVID-19) vaccine, UNSPECIFIED 2 completed Uzma Chino [facility] 06/28/2023 13:39:28 SARS-COV-2 (COVID-19) vaccine, UNSPECIFIED 1 completed Uzma Chino [facility] 06/28/2023 13:40:14 SARS-COV-2 (COVID-19) vaccine, UNSPECIFIED 1 completed Uzma Chino [facility] 06/28/2023 13:40:26 SARS-COV-2 (COVID-19) vaccine, UNSPECIFIED 1 completed [facility] 13:40:35 Tdap 2 completed Uzma Chino [facility] 06/28/2023 13:41:04 zoster recombinant 9 completed Uzma Chino [facility] 06/28/2023 13:41:57 zoster recombinant 9 completed Uzmabenji Magana [facility] 06/28/2023 13:42:05 Pneumococcal conjugate PCV 13 8 completed [facility]2023 13:42:32 zoster live 4 completed Uzmabenji Magana [facility] 06/28/2023 13:42:46 Td(adult) unspecified formulation 2 completed Uzma Magana [facility] 06/28/2023 13:43:12 pneumococcal polysaccharide PPV23 8 completed Uzma Magana [facility] 06/28/2023 13:43:28 Influenza, adjuvanted, quadrivalent, PF 3 completed [facility] 12/05/2023 12:23:39 Influenza, adjuvanted, quadrivalent, PF 2 completed [facility]ina [facility] 12/29/2023 16:01:49 Past Encounters Encounter ID Performer Location Encounter Start Date Encounter Closed Date Diagnosis/Indication Diagnosis SNOMED-CT Code Diagnosis ICD10 Code Diagnosis IMO Codes Diagnosis Note [id number] [facility] [address] [place] [address] 01/05/2019 11:55:50 01/17/2019 12:08:44 Fracture of neck of femur 9607519 S72.002D wbatloveno x x30 d for DVT Pf/u with Dr. Giraldo.PT /OT eval. Parkinson's disease 4904 9000 G20 stable on selegiline , sinemet. Vitamin D deficiency 347 12287 E55.9 stable on supplement ation. Hypothyroidism 68384318 E03.9 [place]othyrox ine [id number] MD MARIA TERESA [address] [place] [address] 01/09/2019 13:32:22 01/17/2019 12:18:12 Fracture of neck of femur 8074576 S72.092D see HPIleft hip fx now s/p nail fixationfo llow ortho recsPT OT eval and treatWBATm onitor for pain control and constipati onlovenox for DVT prophylaxi s Unsteady gait 003455014 R26.81 PT OT eval and treatmonit or fall risk Parkinson's disease 4904 9000 G20 question if contributi ng factor to fallsineme t 25-100 tidmonitor for sx control Hypothyroidism 56212715 E03.8 synthroid 75 mcg qdmonitor tsh prn Anemia due to blood loss 178715698 D50.0 Post [place] [id number] [facility] [address] [place] [address] 01/11/2019 11:55:22 01/17/2019 14:34:33 Fracture of neck of femur 3533730 S72.002D wbatloveno x x30 d for DVT Pf/u with Dr. Giraldo.PT /OT eval. Parkinson's disease 4904 9000 G20 stable on selegiline , sinemet. Vitamin D deficiency 347 94887 E55.9 stable on supplement ation. Hypothyroidism 79882936 E03.9 [place] in[place] [id number] [facility] ROBERTO [address] [place] [address] 01/17/2019 15:02:30 01/23/2019 08:27:33 Fracture of neck of femur 0342604 S72.002D wbatloveno x x30 d for DVT Pf/u with Dr. Giraldo.PT /OT eval. Parkinson's disease 4904 9000 G20 stable on selegiline , sinemet. Vitamin D deficiency 347 87603 E55.9 stable on supplement ation. Hypothyroidism 55461749 E03.9 stable [place] levothyrox ine [id number] [facility] [address] [place] [address] 01/25/2019 10:07:54 01/30/2019 15:28:44 Fracture of neck of femur 3579401 S72.002D wbatloveno x x30 d for DVT Pf/u with Dr. Giraldo.PT /OT eval. Parkinson's disease 4904 9000 G20 stable on selegiline , sinemet. Vitamin D deficiency 347 04934 E55.9 stable on supplement ation. Hypothyroidism 24048210 E03.9 stable [place] levothy[place] ine [id number] [facility] [address] [place] [address] 01/30/2019 15:21:38 02/01/2019 15:29:35 Fracture of neck of femur 0743472 S72.002D wbatloveno x x30 d for DVT [...] selegiline , sinemet. Vitamin D deficiency 347 70046 E55.9 stable on supplement ation. Hypothyroidism 52859421 E03.9 stable on levothyrox ine [id number] [facility] [address] [place] [address] 02/02/2019 12:24:21 02/06/2019 11:14:37 Fracture of neck of femur 8864615 S72.002D wbatloveno x x30 d for DVT P completed now.f/u with Dr. Giraldo 02/14 Parkinson's disease 4904 9000 G20 stable on selegiline , sinemet. Vitamin D deficiency 347 44062 E55.9 stable on supplement ation. Hypothyroidism 71747544 E03.9 stable on levothyrox ine [id number] Shahram Tang MD [facility] [address] [place] [address] 02/04/2019 10:08:57 02/06/2019 11:18:25 Fracture of neck of femur 3850847 S72.092D see HPIleft hip fx now s/p nail fixationam bulating with walkerclea red for discharge to f/u with ortho Unsteady gait 593446675 R26.81 monitor fall risk Anemia due to blood loss 548855551 D50.0 Post op anemiamoni tor cbc and need for tx Parkinson's disease 4904 9000 G20 sinemet 25-100 tidmonitor for sx control Hypothyroidism 90149637 E03.8 synthroid 75 mcg qdcontinue [id number] BIBIANA GRIPPIN, CLOCK ASSEMBLER [address] [address] 06/15/2023 10:18:24 06/17/2023 14:59:16 Falls 712145190 R29.6 PT OT eval and treatfall precaution sfrequent safety checks Fracture o f neck of femur 9730167 S72.001A tylenol 325 mg tidlovenox 40 mg daily till seen by ortho 06/22 Parkinson's disease 4904 9000 G20 rytary 23.75/95 mg er 4 caps in amrytary 23.75/95mg er 3 caps am and pmselegili ne 5 mg bidmonitor for tremors Hypothyroidism 67793417 E03.8 levothyrox ine 75 mcg daily Vitamin D deficiency 347 23846 E55.9 D3 1000 daily Depressive disorder 3548 9007 F32.A seroquel 12.5 mg bid and 25 mg hspsych prnAIMs 0 Anemia 892423938 D64.9 iron dailyvit c 500 dailyB 12 dailymonit or labs [id number] Elly Phillips MD [address] [address] 06/16/2023 16:25:01 06/21/2023 15:38:57 Falls 915140379 R29.6 As above.Kevin est issue is poor safety awareness. Fracture o f neck of femur 7660875 S72.044D Continue APAP 650 mg TIDContinu e [...] mg BID and 25 mg qhs. Hypothyroidism 45015124 E03.8 TSH 5.06Contin ue levothyrox ine 75 mcg qdRecheck TSH with FT4 with next labs. Vitamin D deficiency 347 01498 E56.8 Continue vitamin D3 1000 IU qdMonitor as outpt. Anemia 194553847 D64.89 Multifacto rial.Jerome nue FeSO4 324 mg qd with vitamin C 500 mg qd for absorption , and vitamin B12 1000 mcg qd.Monitor labs Cigarette smoker 5644459 7 F17.210 Intermitte nt smoker, no need for nicotine replacemen t at this time.Unabl e to discuss with pt today due to agitation. Mild alcoh ol dependence 911707423 F10.20 Reportedly drinks fairly regularly, but not to excess.But could be contributi ng to fall risk.Jerome nue to discuss with pt and . [id number] PIETRO CORTEZ [address] [place] [address] 06/17/2023 12:19:24 06/21/2023 16:17:57 Parkinson's disease 26533649 G20 rytary 23.75/95 mg er 4 caps in amrytary 23.75/95mg er 3 caps am and pmselegili ne 5 mg bidmonitor for tremors Hallucinations 9919045 R 44.3 nuplazid 34 mg dailystop seroquel when this is started [id number] PIETRO CORTEZ [address] [place] [address] 06/20/2023 12:39:37 06/22/2023 16:56:32 Parkinson's disease 05583762 G20 rytary 23.75/95 mg er 4 caps in amrytary 23.75/95mg er 3 caps am and pmselegili ne 5 mg bidmonitor for tremors Hallucinations 4884914 R 44.3 nuplazid 34 mg dailystop seroquel when this is startedmee t pt where she is and assure her [id number] PIETRO CORTEZ [address] [place] [address] 07/11/2023 13:31:32 07/13/2023 14:09:19 Falls 574554264 R29.6 PT OT eval and treatfall precaution sfrequent safety checks Fracture o f neck of femur 9499638 S72.001A tylenol 325 mg tidlovenox 40 mg daily till seen by ortho 8/9 Parkinson's disease 4904 9000 G20 rytary 23.75/95 mg er 4 caps in amrytary 23.75/95mg er 3 caps am and pmselegili ne 5 mg bidmonitor for tremors Hypothyroidism 60678409 E03.8 levothyrox ine 75 mcg daily Vitamin D deficiency 347 69518 E55.9 D3 1000 daily Depressive disorder 3548 9007 F32.A seroquel stoppedNup lazid 34 mg dailypsych prnAIMs 0 Anemia 503333983 D64.9 iron dailyvit c 500 dailyB 12 dailymonit or labs Hallucinations 1514956 R 44.3 resolved with nuplazidnu plazid 34 mg dailystop seroquel when this is startedmee t pt where she is and assure her [id number] BIBIANA ALBA NP [address] [address] 07/22/2023 10:55:18 07/29/2023 10:05:46 Falls 113514731 R29.6 PT OT eval and treatfall precaution sfrequent safety checks Fracture o f neck of femur 1772263 S72.001A tylenol 325 mg tidlovenox 40 mg daily till seen by ortho 89 Parkinson's disease 4904 9000 G20 rytary 23.75/95 mg er 4 caps in amrytary 23.75/95mg er 3 caps am and pmselegili ne 5 mg bidmonitor for tremors Hypothyroidism 37109168 E03.8 levothyrox ine 75 mcg daily Vitamin D deficiency 347 15879 E55.9 D3 1000 daily Depressive disorder 3548 9007 F32.A seroquel stoppedNup lazid 34 mg dailypsych prnAIMs 0 Anemia 049826310 D64.9 iron dailyvit c 500 dailyB 12 dailymonit or labs Hallucinations 1908179 R 44.3 resolved with nuplazidnu plazid 34 mg dailystop seroquel when this is startedmee t pt where she is and assure her [id number] Sandra Morse NP [facility] [address] [place] [address] 07/31/2023 09:23:45 08/02/2023 09:21:10 Falls 555869959 R29.6 PT OT eval and treatfall precaution sfrequent safety checkshigh fall risk Fracture o f neck of femur 7500235 S72.001A tylenol 650mg tidrefuses other pain medication [...] ne 5 mg bidmonitor for tremors Hypothyroidism 33624211 E03.8 levothyrox ine 75 mcg dailyTSH x 1 to monitor Vitamin D deficiency 347 04433 E55.9 D3 2000 sbyukj13 mecobalami n 1000mcg po daily Depressive disorder 3548 9007 F32.A seroquel 12.5 mg bid and 25 mg hsnuplazid 34 mg po dailypsych prnAIMs 0 Anemia 463019654 D64.9 iron dailyvit c 500 dailyB 12 dailymonit or labs Hallucinations 7194073 R 44.3 resolved in hospital per pt? ecoli ua culturemon itor Mild alcoh ol dependence 447944770 F10.20 states drinks 5 beers per day, ;[facility]/s of withdrawal s noted Cigarette smoker 6772282 7 F17.210 states only smokes 2 cigarettes per monthno nrt, refusesmon itor and support quitting [id number] Elly Phillips MD [address] [address] 08/01/2023 17:39:18 08/03/2023 06:57:14 Fracture of neck of femur 0477651 S72.044D Continue APAP 650 mg TIDContinu e lovenox 40 mg sq qd for 6 wks post-opNee ds PT/OT for strengthen ing, balance, gait training, safety and function.C ontinue fall precaution s.Monitor for safety.F/U with ortho as planned Falls 510531071 R29.6 As above.Kevin est issue is poor [...] el was stopped when Nuplazid started. Hypothyroidism 29636116 E03.8 TSH 4.75, no FT4 done, but had been 5.06 in 05/2023.Con tinue levothyrox ine 75 mcg qdRecheck TSH with FT4 with next labs. Vitamin D deficiency 347 75449 E56.8 Continue vitamin D3 1000 IU qdMonitor as outpt. Anemia 744479100 D64.89 Multifacto rial. Macrocytic RBCs could indicate EtOH component. Continue FeSO4 324 mg qd with vitamin C 500 mg qd for absorption , and vitamin B12 1000 mcg qd.Monitor labs Cigarette smoker 8691903 7 F17.210 Intermitte nt smoker, no need for nicotine replacemen t at this time.She is not interested in quitting.C morgan to encourage cessation. Mild alcoh ol dependence 285216108 F10.20 Reportedly drinks fairly regularly, but not to excess.But could be contributi ng to fall risk.Jerome nue to discuss with pt and . [id number] Sandra Morse NP [address] [address] 08/04/2023 12:38:17 08/18/2023 16:18:30 Fracture of neck of femur 6414166 S72.044D Continue start oxycodone 5 mg po q am and q 6 hours prn painAPAP 650 mg TIDlovenox 40 mg sq qd for 6 wks post-op(42 days total)Need s PT/OT for strengthen ing, balance, gait training, safety and function.C ontinue fall precaution s.Monitor for safety.F/U with ortho as planned Falls 241054741 R29.6 As above.Kevin est issue is poor safety awareness. Unclear if pt can continue to live at home, will need to be assessed while here. Parkinson's disease 4901 9000 G20 With dementia and hallucinat ions, can also be quite clear at times.Cont inueRytary 23.75/95 mg ER 4 caps qAM and 3 caps in afternoon and qhs'selegi line 5 mg BIDNuplazi d 34 mg qd.F/U with neuro as planned.Ps ych consult prn.Seroqu el was stopped when Nuplazid started. Hypothyroidism 83643150 E03.8 TSH 4.75, no FT4 done, but had been 5.06 in 05/2023.Con tinue levothyrox ine 75 mcg qdRecheck TSH with FT4 with next labs. Vitamin D deficiency 347 84133 E56.8 Continuevi tamin D3 1000 IU qdMonitor as outpt. Anemia 096094139 D64.89 Multifacto rial.Jerome nue FeSO4 324 mg qdvitamin C 500 mg qd for absorption vitamin B12 1000 mcg qd.Monitor labs Health Concerns Section Related Observation LastModified by Organization Detai ls LastModified Time None Recorded Concern Status LastModified by Organization Details LastModified Time None Recorded Advance Directives Directive Y: Payers Insurance Date Sequence Insurance Name Policy Number Policy Dodd Covered Member ID Dodd Member ID Guarantor Name 08/18/2023 2 [employer] [facility] INDE[facility]ITY PL[facility] (INDEMNITY) [id number] Suzan Lindo [id number] Suzan Lindo 07/22/2023 1 MEDICARE B-DE: NATIONAL GOVERNMENT SERVICES Suzan Lindo [id number] Suzan Lindo 02/17/2019 2 [employer] [facility] IN[facility]ITY [facility] (INDEMNITY) Suzan Lindo Notes Date Note Type Note Provider Name and Address Organization Details Recorded Time 07/11/2023 text/html ROS as noted in the HPI seen today for 30 day routine rounding visit-82 yof admitted to for rehab after presenting to the hospital after a fall with fractured right femur, she underwent ORIF and went to [facility] 05/31. shantelle out 06/11 CAOx2 sitting up in wheelchair, lungs clear, ambulating with PT and walker, her activity has increased, she is tolerating the Nuplazid and no further psychotic or delusional episodes noted or reported BIBIANA ALBA, PIETRO [address], [address], [place], [address], [facility] [employer] [facility] 07/11/2023 13:37:18 07/22/2023 text/html ROS as noted in the HPI seen today for dishcarge summary-82 yof admitted to for rehab after presenting to the hospital after a fall with fractured right femur, she underwent ORIF and went to [facility] 05/31. shantelle out 06/11. CAOx2 sitting up in wheelchair, lungs clear, ambulating with PT and walker, she did the stairs with supervision, her activity has increased, she is tolerating the Nuplazid and no further psychotic or delusional episodes noted or reported BIBIANA ALBA, PIETRO [address], [address], [place], [address], [facility] [employer] [facility] 07/22/2023 10:58:17 07/31/2023 text/html ROS as noted in the HPI Pt is seen for an initial visit today. Patient admitted to from [facility] from 07/22-07/29/23 for ORIF [...] her right hip today without staining. SLUMS , Moss high risk PMH: falls, parkinsons, depression, hypothyroid, vit d def, and right femur fracture MOLST: Full code per pt today but art nutrition short term. Sandra Morse, PIETRO [address], [address], [place], [address], [facility] 07/31/2023 10:51:12 08/01/2023 text/html This is an [...] but couldn't. She was brought to the [facility] ED on the night [...] frequent falls, and HLD. Elly Phillips MD [address] [place] [address], [address], [place], [address], [facility] [employer] [facility] 08/01/2023 20:00:12 08/04/2023 text/html ROS as noted in the HPI Pt is seen for an acute visit today. Her PMH includes Parkinson's disease with dementia, s/p right femur fx in 05/2023 and refx in 07/2023, hypothyroidism, vitamin D deficiency, mild , cigarette smoker, OP, alcohol use-moderate, frequent falls, and HLD. Patient admitted to from [facility] from 07/22-07/29/23 for ORIF [...] s/p ORIF. She was brought to the [facility] ED on the night [...] and some delusions. She was transferred to [facility] for further rehab, and possible LTC [...] today but art nutrition short term. Sandra Morse NP [address], [address], [place], [address], [facility] 08/17/2023 18:33:47 OBGyn Episode No OBEpisode recorded.
[2025-08-25] MEDS: Albumin Human 25 % 100 ML 133.33 ML IV (10:42)
[2025-08-25] MEDS: iohexoL 350 MG/ML 100 ML INFUS..BTL IV (10:56)
--- NOTE | 2025-08-25 10:56 | PC.NURSE ---
pt returned from CT at this time - altered but calm/cooperative. unable to answer questions/follow commands. 4 point restraints removed to all extremities d/t pt's behavior. pt tolerating transition well. +CMS. skin intact. pt otherwise remains hypotensive/tachycardic. IVF/albumin/abx infusing per provider order. pt otherwise on RA w/o difficulty - maintaining airway - no sob/wob noted. respirations even/unlabored. seizure precautions remain in place. pending CT results. plan of care ongoing.
[2025-08-25] MEDS: Lactated Ringers 1,000 ML 999 ML IV ×3 (11:00→16:15)
--- NOTE | 2025-08-25 11:14 | ECG_ITS ---
Test Reason : ALTERED MENTAL STATUS Blood Pressure : */* mmHG Vent. Rate : 68 BPM Atrial Rate : * BPM P-R Int : * ms QRS Dur : 84 ms QT Int : 428 ms P-R-T Axes : * 27 219 degrees QTcB Int : 455 ms Atrial fibrillation Septal infarct ST & T wave abnormality, consider inferior ischemia ST & T wave abnormality, consider anterolateral ischemia Abnormal ECG When compared with ECG of 22-Jan-2025 11:04, Afib present Significant ST changes present ischemia vs digitalis effect. Referred By: Matteo Hoskins Electronically Signed By: Mychal Monroe
--- NOTE | 2025-08-25 11:24 | PC.NURSE ---
pt remains hypotensive despite previous medication/IVF administration. albumin still infusing per provider order. norepinephrine infusing per [facility] protocol. see MAR for titrations. pt otherwise remains hypotensive. HR has improved. pt otherwise on RA w/o difficulty - no sob/wob noted. respirations even/unlabored. plan of care ongoing.
[2025-08-25 11:45] LABS: Alanine Aminotransferase < 6 U/L (0-31); Albumin Level 2.7 g/dL (3.5-5.0); Alkaline Phosphatase 39 U/L (39-117); Anion Gap 13 (12-20); Aspartate Amino Transferase 14 U/L (5-31); Blood Urea Nitrogen 15 mg/dL (9-16); Calcium 7.2 mg/dL (8.4-10.2); Carbon Dioxide 14 mmol/L (22-29); Chloride 117 mmol/L (96-108); Creatinine Clr Calc Pharmacy 37.4; Estimated Glomerular Filt Rate > 60; Magnesium 1.5 mg/dL (1.6-2.6); Potassium 3.7 mmol/L (3.3-5.1); Sodium 140 mmol/L (135-145); Total Protein 3.9 g/dL (6.5-8.0)
[2025-08-25 12:21] LABS: Reflex Lactate? Lactic Acid Added
[2025-08-25 12:25] LABS: Troponin-I High Sensitivity < 2.7 ng/L (<3.5-17.0)
[2025-08-25] MEDS: Ketamine HCl/NS 50 MG/5 ML SYRINGE IVPUSH (12:26)
--- NOTE | 2025-08-25 12:27 | PC.NURSE ---
pt remains altered - unable to answer questions/follow commands appropriately. speech incomprehensible. vss and up to date aside from remaining sinus tachycardic on the monitor. BP continues to improve w/ norepinephrine gtt infusing. MAP remains > 65. pt requiring additional medication d/t increased agitated. medication administered per provider order. effectiveness pending. 1:1 sitter remains present. plan of care ongoing.
--- NOTE | 2025-08-25 13:05 | PC.NURSE ---
norepinephrine gtt titrated to 0.2 mcg/kg/min per provider order. per MD, attempts will be made to potentially wean pt off of gtt. see MAR for titrations. effectiveness pending. plan of care ongoing.
[2025-08-25 13:15] LABS: COVID-19 Test Negative (Negative); IDNOW Serial# 6674DD1D
[2025-08-25 13:18] LABS: ~Lactic Acid-LAB USE ONLY 4.1 mmol/L (0.5-2.0)
[2025-08-25] MEDS: Magnesium Sulfate/H2O 2 GM/50 ML PIGGYBACK IV (14:16)
--- NOTE | 2025-08-25 14:37 | PC.NURSE ---
norepinephrine gtt discontinued per MD order after MD had a conversation w/ spouse in regards to plan of care. patient will now be comfort measures only. pt otherwise remains disoriented but calm/cooperative as spouse remains bedside. labored breathing noted. plan of care ongoing. call tripathi placed within reach.
[2025-08-25 14:59] LABS: Reflex Lactate? 2 Y
--- NOTE | 2025-08-25 15:38 | P.HPHOSP_ITS ---
History of Present Illness Date of Service: 08/25/25 Chief Complaint: low blood pressure 85 year old women found unresponsive in her wheelchair this morning. EMS was called and she found to be hypotensive. Upon arrival to the ED patient was delirious and combative. She received Ketamine and Zyprexa in the ED. She was started on sepsis fluids and empiric antibiotics for UTI. Due to the hypotension she was started on Levophed and medicated for agitation multiple times. ED provider discussed patients management with her family and it was decided that the patient would be made confort measures only. Levophed was stopped and patient will be tx to S3 . 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 Patient Tobacco Use Status: Former Tobacco user Tobacco use type: Cigarette Cigarettes Per Day: 4 Years Smoked: 35 Second Hand Smoke Exposure: No Advance Directives: Yes Advance Directives on File: Yes Advance Directives Date on File: 08/10/23 Do you have a plan to hurt others: No Plan service: No Current occupational status: retired and disabled 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 Allergies Allergy/AdvReac Type Severity Reaction Status Date / Time alendronate sodium (From AdvReac Unknown Unknown Verified 08/25/25 10:12 Fosamax) Active Medications: Current Medications Acetaminophen (Acetaminophen 325 Mg Tablet) 650 mg PO Q4H PRN PRN Reason: Fever >/= 100, Pain, mild 1-3 Acetaminophen (Acetaminophen Supp 650 Mg Supp.Rect) 650 mg [place] Q4H PRN PRN Reason: Fever >/= 100, Pain, mild 1-3 Haloperidol Lactate (Haloperidol Lactate 5 Mg/Ml Vial) 0.5 mg IVPUSH Q4H PRN PRN Reason: Delirium Hydromorphone HCl (Hydromorphone Hcl 0.5 Mg/0.5 Ml Syringe) 0.25 mg IVPUSH Q1H PRN PRN Reason: Pain, Severe (Pain Scale 7-10) Lactated Ringer's (Lr) 1,000 mls @ 0 mls/hr IV .Q0M [facility] Last Admin: 08/25/25 14:16 Dose: 999 mls/hr Norepinephrine Bitartrate (Levophed) 8 mg in 250 mls @ 0 mls/hr IVCONT .Q0M AMY; Protocol Last Titration: 08/25/25 14:36 Dose: 0 mcg/kg/min, 0 mls/hr Lactated Ringer's (Lr) 1,000 mls @ 999 mls/hr IV .Q1H1M [facility] Last Admin: 08/25/25 14:16 Dose: Not Given Magnesium Sulfate (Magnesium Sulfate/H2o) 2 gm in 50 mls @ 25 mls/hr IV ONCE ONE Stop: 08/25/25 15:57 Last Admin: 08/25/25 14:16 Dose: 25 mls/hr Morphine Sulfate (Morphine Sulfate 2 Mg/Ml Cartridge) 2 mg IVPUSH Q1H PRN PRN Reason: Pain, Severe (7-10)/ RR>/=24 Ondansetron HCl (Ondansetron Odt 4 Mg Tab.Rapdis) 4 mg TRANSLINGU Q8H PRN PRN Reason: Nausea and Vomiting Ondansetron HCl (Ondansetron Hcl 4 Mg/2 Ml Vial) 4 mg IVPUSH Q8H PRN PRN Reason: Nausea and Vomiting Scopolamine (Scopolamine 1.5 Mg Patch.Td.3) 1.5 mg TRANSDERMA Q72H [facility] Home Medications ?Medication ?Instructions ?Recorded ?Confirmed ?Last Taken ?Type levothyroxine 75 mcg tablet 75 mcg PO DAILY@0600 01/1908/25/25 08/24/25 History quetiapine 25 mg tablet 25 mg PO BEDTIME PRN Sleep 0 12/18/24 08/25/25 08/24/25 History carbidopa ER 61.25 mg-levodopa 245 1 cap PO QID 08/25/25 08/24/25 History mg capsule,extended release (Rytary) Physical Exam 2 Vital Signs and Narrative: Vital Signs: Last Vital Signs Temp 97.0 F 08/25/25 10:11 Pulse 112 H 08/25/25 14:36 Resp 14 08/25/25 14:15 BP 123/58 L 08/25/25 14:36 Pulse Ox 96 08/25/25 14:15 O2 Del Method Room Air 08/25/25 14:15 BMI result Body Mass Index 17.9 Appearing in no acute distress head is normocephalic atraumatic eyes pupils are PERRLA sclera is anicteric mouth throat mucous membranes are intact and moist neck is supple no lymphadenopathy, no JVD noted lung sounds are clear to auscultation heart regular rate rhythm, clear S1, S2 positive bowel sounds, abdomen is soft, nontender neuro patient is alert x3, no focal deficits Results Labs 08/25/25 10:09 08/25/25 11:26 Labs: Laboratory Results - last 24 hr 08/25/25 08/25/25 08/25/25 09:58 10:09 10:10 MCV 100.3 H MCH 30.8 MCHC 30.7 L RDW 13.2 Plt Count 186 MPV 11.9 Immature Gran % (Auto) 0.5 H Neut % (Auto) 50.5 Lymph % (Auto) 34.6 [place] % (Auto) 9.0 Eos % (Auto) 4.6 H Baso % (Auto) 0.8 Lymph # (Auto) 2.2 [place] # (Auto) 0.6 Eos # (Auto) 0.3 Baso # (Auto) 0.1 Abs Immat Gran (auto) 0.03 Absolute Neuts (auto) 3.2 Absolute Nucleated RBC 0.000 Nucleated RBC % (auto) 0.0 Hold Purple Top SEE NOTE Anion Gap Estim Creat Clear Calc Estimated GFR POC Glucose 147 H Random Glucose Lactic Acid Lactic Acid F/U @ 2Hr Calcium Magnesium Total Bilirubin AST ALT Alkaline Phosphatase Total Creatine Kinase Troponin I High Sens Total Protein Albumin TSH 2.51 Urine Color Urine Appearance Urine pH Ur Specific [place] Urine Protein Urine Glucose (UA) Urine Ketones Urine Blood Urine Nitrite Ur Leukocyte Esterase Urine RBC Urine WBC Ur Squamous Epith Cells Urine Bacteria Hyaline Casts COVID-19 (CASPER) COVID-19 Clin Com 08/25/25 08/25/25 08/25/25 10:17 10:18 11:26 MCV MCH MCHC RDW Plt Count MPV Immature Gran % (Auto) Neut % (Auto) Lymph % (Auto) [place] % (Auto) Eos % (Auto) Baso % (Auto) Lymph # (Auto) [place] # (Auto) Eos # (Auto) Baso # (Auto) Abs Immat Gran (auto) Absolute Neuts (auto) Absolute Nucleated RBC Nucleated RBC % (auto) Hold Purple Top Anion Gap 13 Estim Creat Clear Calc 37.4 Estimated GFR > 60 POC Glucose Random Glucose 144 H Lactic Acid 10.8 H* Lactic Acid F/U @ 2Hr Calcium 7.2 L D Magnesium 1.5 L Total Bilirubin 0.3 AST 14 ALT < 6 Alkaline Phosphatase 39 Total Creatine Kinase 40 Troponin I High Sens < 2.7 Total Protein 3.9 L Albumin 2.7 L TSH Urine Color Yellow Urine Appearance Clear Urine pH 7.0 Ur Specific [place] 1.015 Urine Protein Negative Urine Glucose (UA) Negative Urine Ketones Negative Urine Blood Trace H Urine Nitrite Negative Ur Leukocyte Esterase Trace H Urine RBC 3-5 H Urine WBC 0-5 Ur Squamous Epith Cells 0-2 Urine Bacteria 4+ Hyaline Casts 3-5 COVID-19 (CASPER) COVID-[facility] 08/25/25 12:55 MCV MCH MCHC RDW Plt Count MPV Immature Gran % (Auto) Neut % (Auto) Lymph % (Auto) [place] % (Auto) Eos % (Auto) Baso % (Auto) Lymph # (Auto) [place] # (Auto) Eos # (Auto) Baso # (Auto) Abs Immat Gran (auto) Absolute Neuts (auto) Absolute Nucleated RBC Nucleated RBC % (auto) Hold Purple Top Anion Gap Estim Creat Clear Calc Estimated GFR POC Glucose Random Glucose Lactic Acid Lactic Acid F/U @ 2Hr 4.1 H* Calcium Magnesium Total Bilirubin AST ALT Alkaline Phosphatase Total Creatine Kinase Troponin I High Sens Total Protein Albumin TSH Urine Color Urine Appearance Urine pH Ur Specific [place] Urine Protein Urine Glucose (UA) Urine Ketones Urine Blood Urine Nitrite Ur Leukocyte Esterase Urine RBC Urine WBC Ur Squamous Epith Cells Urine Bacteria Hyaline Casts COVID-19 (CASPER) Negative COVID-[facility] See Note Assessment and Plan (1) Urinary tract infection: Qualifiers: Encounter type: initial encounter Status: Acute Plan 85 year old women admitted for Comfort measures only after being found unresponsive and hypotensive this morning requiring vasopressor suppport. Comfort measures only IV morphine, consider morphine drip if agitation worsens IV haldol WY tylenol for fever scopolamine patch supportive care avoid vital signs, lab draws Chronic medical problems: Alzheimer's dementia Hypothyroidism History of TIA Quality Stroke Does the patient have a stroke diagnosis?: No VTE Prior VTE?: No VTE Risk Level:: Medical - moderate - high VTE Device Contraindication: Treatment Not Indicated VTE Drug Contraindication: Treatment Not Indicated
--- NOTE | 2025-08-25 15:49 | PC.NURSE ---
repeat lactic not obtained per MD d/t pt being [employer]GER [employer].
--- NOTE | 2025-08-25 16:10 | PC.NURSE ---
Scopolamine patch placed behind left ear IVF completed and taken down Patient tearful at this time but calm and cooperative
--- NOTE | 2025-08-25 16:17 | PHA.MEDREC ---
Addendum entered by Kumar Dueñas, Anthony 08/25/25 16:21: MED REC CHECKED BY [facility] Original Note: Pharmacy Consult ? Medication Reconciliation Pharmacy has completed the medication reconciliation. Family could not confirm medications, referred to claims history to finish medication reconciliation.
--- NOTE | 2025-08-26 | EEG_ITS ---
Reason for Exam: Episode of unresponsive Roomed Performed:?356 inpatient History: Multifactorial dementia,Dementia with behavioral disturbance,Parkinson's disease, Aortic stenosis, mild, Hypothyroidism Medication: Acetaminophen, Aspirin, Ceftriaxone Sodium, Enoxaparin Sodium, Levothyroxine Sodium, Carbidopa-Levodopa, Ondansetron HCl, Quetiapine Fumarate Technical description:? Photic stimulation: Completed Hyperventilation:?Omitted Behavioral state: awake State of Consciousness: Cooperative, able to follow commands Skull defect: None Sedation: None Handedness: Right Duration of study:? 30min ? ? 22sec Description: This is a 16 channel EEG with an EKG lead. Patient is reported cooperative and able to follow commands. Background EEG rhythm is somewhat asymmetric with 5-6 hertz 5 to 100 microvolt posteriorly lower amplitude fast anteriorly in left hemispheric leads and somewhat lower amplitude and faster rhythm in right hemispheric leads. Some muscle and lead artifacts are also noted. No definite sharp waves or spikes are noted. Photic stimulation does not produce any significant driving. Hyperventilation is not performed. Cardiac lead does not reveal any significant abnormality. Impression: Abnormal EEG revealing asymmetry with moderately slower left hemispheric rhythm in comparison to right but with no obvious epileptic activity. Clinical or imaging correlation is recommended. MTDD
--- NOTE | 2025-08-26 08:29 | P.PNIM_ITS ---
Subjective Subjective Date of Service: 08/26/25 Interval History: feeling better, just weak Physical Exam 2 Exam: Exam: General: AO X 2, frail, ill appearing, but no acute distress Resp: CTA bilateral, no accessory muscles used CVS: S1,S2,RRR GI: soft, non tender, non distended Neuro: motor grossly intact, alert Psych: appropriate affect, appropriate insight Vital Signs: Vital Signs: Last Vital Signs Temp 97.0 F 08/25/25 10:11 Pulse 122 H 08/25/25 18:09 Resp 21 H 08/25/25 16:42 BP 123/58 L 08/25/25 18:09 Pulse Ox 96 08/25/25 14:15 O2 Del Method Room Air 08/25/25 14:15 BMI result Body Mass Index 17.9 Objective Data Active Medications Acetaminophen (Acetaminophen 325 Mg Tablet) 650 mg PO Q4H PRN PRN Reason: Fever >/= 100, Pain, mild 1-3 Acetaminophen (Acetaminophen Supp 650 Mg Supp.Rect) 650 mg [place] Q4H PRN PRN Reason: Fever >/= 100, Pain, mild 1-3 Diazepam (Diazepam 10 Mg/2 Ml Cartridge) 10 mg IVPUSH Q4H PRN PRN Reason: Anxiety Haloperidol Lactate (Haloperidol Lactate 5 Mg/Ml Vial) 0.5 mg IVPUSH Q4H PRN PRN Reason: Delirium Hydromorphone HCl (Hydromorphone Hcl 0.5 Mg/0.5 Ml Syringe) 0.25 mg IVPUSH Q1H PRN PRN Reason: Pain, Severe (Pain Scale 7-10) Morphine Sulfate (Morphine Sulfate 2 Mg/Ml Cartridge) 2 mg IVPUSH Q1H PRN PRN Reason: Pain, Severe (7-10)/ RR>/=24 Ondansetron HCl (Ondansetron Odt 4 Mg Tab.Rapdis) 4 mg TRANSLINGU Q8H PRN PRN Reason: Nausea and Vomiting Ondansetron HCl (Ondansetron Hcl 4 Mg/2 Ml Vial) 4 mg IVPUSH Q8H PRN PRN Reason: Nausea and Vomiting Scopolamine (Scopolamine 1.5 Mg Patch.Td.3) 1.5 mg TRANSDERMA Q72H AMY Last Admin: 08/25/25 16:08 Dose: 1.5 mg Documented By: JOSSE Labs 08/25/25 10:09 08/25/25 11:26 Labs: Laboratory Results - last 24 hr 08/25/25 08/25/25 08/25/25 09:58 10:09 10:10 MCV 100.3 H MCH 30.8 MCHC 30.7 L RDW 13.2 Plt Count 186 MPV 11.9 Immature Gran % (Auto) 0.5 H Neut % (Auto) 50.5 Lymph % (Auto) 34.6 [place] % (Auto) 9.0 Eos % (Auto) 4.6 H Baso % (Auto) 0.8 Lymph # (Auto) 2.2 [place] # (Auto) 0.6 Eos # (Auto) 0.3 Baso # (Auto) 0.1 Abs Immat Gran (auto) 0.03 Absolute Neuts (auto) 3.2 Absolute Nucleated RBC 0.000 Nucleated RBC % (auto) 0.0 Hold Purple Top SEE NOTE Anion Gap Estim Creat Clear Calc Estimated GFR POC Glucose 147 H Random Glucose Lactic Acid Lactic Acid F/U @ 2Hr Calcium Magnesium Total Bilirubin AST ALT Alkaline Phosphatase Total Creatine Kinase Troponin I High Sens Total Protein Albumin TSH 2.51 Urine Color Urine Appearance Urine pH Ur Specific [place] Urine Protein Urine Glucose (UA) Urine Ketones Urine Blood Urine Nitrite Ur Leukocyte Esterase Urine RBC Urine WBC Ur Squamous Epith Cells Urine Bacteria Hyaline Casts COVID-19 (CAS[facility]) COVID-19 Clin Com 08/25/25 08/25/25 08/25/25 10:17 10:18 11:26 MCV MCH MCHC RDW Plt Count MPV Immature Gran % (Auto) Neut % (Auto) Lymph % (Auto) [place] % (Auto) Eos % (Auto) Baso % (Auto) Lymph # (Auto) [place] # (Auto) Eos # (Auto) Baso # (Auto) Abs Immat Gran (auto) Absolute Neuts (auto) Absolute Nucleated RBC Nucleated RBC % (auto) Hold Purple Top Anion Gap 13 Estim Creat Clear Calc 37.4 Estimated GFR > 60 POC Glucose Random Glucose 144 H Lactic Acid 10.8 H* Lactic Acid F/U @ 2Hr Calcium 7.2 L D Magnesium 1.5 L Total Bilirubin 0.3 AST 14 ALT < 6 Alkaline Phosphatase 39 Total Creatine Kinase 40 Troponin I High Sens < 2.7 Total Protein 3.9 L Albumin 2.7 L TSH Urine Color Yellow Urine Appearance Clear Urine pH 7.0 Ur Specific [place] 1.015 Urine Protein Negative Urine Glucose (UA) Negative Urine Ketones Negative Urine Blood Trace H Urine Nitrite Negative Ur Leukocyte Esterase Trace H Urine RBC 3-5 H Urine WBC 0-5 Ur Squamous Epith Cells 0-2 Urine Bacteria 4+ Hyaline Casts 3-5 COVID-19 (CASPER) COVID-19 Clin Com 08/25/25 12:55 MCV MCH MCHC RDW Plt Count MPV Immature Gran % (Auto) Neut % (Auto) Lymph % (Auto) [place] % (Auto) Eos % (Auto) Baso % (Auto) Lymph # (Auto) [place] # (Auto) Eos # (Auto) Baso # (Auto) Abs Immat Gran (auto) Absolute Neuts (auto) Absolute Nucleated RBC Nucleated RBC % (auto) Hold Purple Top Anion Gap Estim Creat Clear Calc Estimated GFR POC Glucose Random Glucose Lactic Acid Lactic Acid F/U @ 2Hr 4.1 H* Calcium Magnesium Total Bilirubin AST ALT Alkaline Phosphatase Total Creatine Kinase Troponin I High Sens Total Protein Albumin TSH Urine Color Urine Appearance Urine pH Ur Specific [place] Urine Protein Urine Glucose (UA) Urine Ketones Urine Blood Urine Nitrite Ur Leukocyte Esterase Urine RBC Urine WBC Ur Squamous Epith Cells Urine Bacteria Hyaline Casts COVID-19 (CASPER) Negative COVID-19 Clin Com See Note Assessment and Plan (1) Urinary tract infection: Status: Acute Plan 84F PMH alzheimers, parkinsons, and vascular dementia, hypothryoid, Aortic stenosis, yusef, CVA, presented with ams and sever hyoptension. 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, however next day blood pressure and mental status improved and decision made to reverse [employer]OR OF PLANNING status acute metabolic encephalopathy ?seizure vs hypotensive encephalopathy due to autonomic dysfunction form parkinsons appears resolved neuro eval, EEG avoid hypotension acute lactic acidosis due to hypotension/possible seizure, not sepsis follow up repeat UTI rocephin, follow up cultures parkinsons sinemet hypothyroid synthroid history of cva/pvd asa dvt prophylaxis - lovenox DNR/DNI reason for continued hospitalization:given improvement changed from DIRECTOR OF PLANNING to DNR/DNI, will now need further inpatient work up for event and monitoring as high risk for recurrence. Quality Stroke Does the patient have a stroke diagnosis?: No VTE Prior VTE?: No VTE Risk Level:: Medical - moderate - high VTE Device Contraindication: Treatment Not Indicated VTE Drug Contraindication: Treatment Not Indicated
--- NOTE | 2025-08-26 08:49 | P.ACPN_ITS ---
Advanced Care Planning Note Advanced Care Planning Note Discussed with: patient and family member(s) Time spent (in minutes): 17 Narrative: Discussed with patient has been at bedside regarding diagnosis of hypotension, acute metabolic encephalopathy. Given patient's significant improvement in blood pressure and mental status decision made to reverse [employer] status back to DNR/DNI and to restart conservative medical investigations and treatments. Problems Discussed (1) Comfort measures only status:
[2025-08-26 09:01] VITALS: BP 113/55; PULSE 96; RESP 15; TEMP 36.6; O2SAT 96
[2025-08-26] MEDS: Magnesium Sulfate/H2O 2 GM/50 ML PIGGYBACK IV (09:40)
[2025-08-26 10:21] LABS: Hematocrit 32.0 % (37.0-47.0); Hemoglobin 10.2 g/dl (12.0-16.0); Mean Corpuscular HGB Conc 31.9 g/dl (31.0-35.0); Mean Corpuscular Hemoglobin 30.6 pg (27.0-33.0); Mean Corpuscular Volume 96.1 fL (80.0-98.0); NRBC Abs Auto 0.000 X10*3/uL (0.0-0.012); NRBC Pct Auto 0.0 /100WBC (0.0-0.2); Platelet Count 146 X10*3/uL (160-400); Red Blood Count 3.33 X10*6/uL (4.20-5.50); White Blood Count 5.5 X10*3/uL (4.8-10.8)
[2025-08-26 10:38] LABS: Alanine Aminotransferase 14 U/L (0-31); Albumin Level 3.9 g/dL (3.5-5.0); Alkaline Phosphatase 55 U/L (39-117); Anion Gap 11 (12-20); Aspartate Amino Transferase 36 U/L (5-31); Blood Urea Nitrogen 14 mg/dL (9-16); Carbon Dioxide 22 mmol/L (22-29); Chloride 118 mmol/L (96-108); Creatinine Clr Calc Pharmacy 37.9; Estimated Glomerular Filt Rate > 60; Potassium 4.2 mmol/L (3.3-5.1); Sodium 147 mmol/L (135-145); Total Protein 5.5 g/dL (6.5-8.0)
[2025-08-26 10:45] LABS: Calcium 8.8 mg/dL (8.4-10.2)
--- NOTE | 2025-08-26 11:37 | P.CNNE_ITS ---
History of Present Illness Data of Consult Service Date: 08/26/25 Primary Care Provider: Omar Siu MD [facility] Reason for consult: Episode of unresponsive 85 years old woman with [id number] multifactorial (degenerative +vascular) dementia with multiple admission to hospital with similar situation. This time she was here with an episode of becoming unresponsive staring in space, which lasted for few minutes. In emergency room she was noted to be confused and agitated. Now she was comfortably sleeping. There was no history of any previous seizure disorder. She was also noted to have significant hypotension with systolic blood pressure in 40s. Review of Systems 2 Review of Systems: Constitutional:?No fever, chills, fatigue, weight loss, or night sweats. HEENT:?No headache, vision changes, hearing loss, nasal congestion, sore throat. Cardiovascular:?No chest pain, palpitations, orthopnea, PND, or leg swelling. Respiratory:?No cough, shortness of breath, wheezing, or hemoptysis. Gastrointestinal:?No nausea, vomiting, abdominal pain, diarrhea, or constipation. Genitourinary:?No dysuria, frequency, incontinence, or hematuria. Musculoskeletal:? Unable to walk uses wheelchair Neurological:? Significant dementia Psychiatric:? Agitation noted in emergency room Endocrine:?No heat/cold intolerance, polydipsia, polyuria, or hair/skin changes. Hematologic/Lymphatic:?No easy bruising, bleeding, or lymphadenopathy. Integumentary (Skin):?No rash, lesions, itching, or color changes. Allergic/Immunologic:?No seasonal allergies, hives, or recurrent infections. [facility] Past Medical History Medical History Multifactorial dementia Dementia with behavioral disturbance Parkinson's disease Aortic stenosis, mild Hypothyroidism Family History Family History Sister AAA (abdominal aortic aneurysm) Surgical History Surgical History Hx of colonoscopy History of hand surgery History of total hip replacement Social History Social History Household Members: Spouse Household Members Other:: was a rehab and home for 1 day Housing: House Do you presently have visiting nurse or other home services: Yes Alcohol intake: former Comment: timothy Patient Tobacco Use Status: Former Tobacco user Tobacco use type: Cigarette Cigarettes Per Day: 4 Years Smoked: 35 Second Hand Smoke Exposure: No Currently Displaying Signs/Symptoms of Drug Intoxication Withdrawal: No Advance Directives: Yes Advance Directives on File: Yes Advance Directives Date on File: 08/10/23 Do you have a plan to hurt others: No Plan Recently lost weight without trying: Yes How much weight loss: 2-13 pounds Eating poorly because of decreased appetite: Yes Nutrition screen score: 4 Nutrition Risks: Poor intake 0-25% >4 days Patient : No : No Poor oral hygiene: No service: No Current occupational status: retired and disabled 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 Allergies Allergy/AdvReac Type Severity Reaction Status Date / Time alendronate sodium (From AdvReac Unknown Unknown Verified 08/25/25 10:12 Fosamax) Active Medications: Current Medications Acetaminophen (Acetaminophen 325 Mg Tablet) 650 mg PO Q4H PRN PRN Reason: Fever >/= 100, Pain, mild 1-3 Acetaminophen (Acetaminophen Supp 650 Mg Supp.Rect) 650 mg IN Q4H PRN PRN Reason: Fever >/= 100, Pain, mild 1-3 Aspirin (Aspirin 81 Mg Tab.Chew) 81 mg PO DAILY [facility] Last Admin: 08/26/25 09:40 Dose: 81 mg Ceftriaxone Sodium (Ceftriaxone Sodium 1 Gm Vial) 1 gm IVPUSH Q24H [facility] Last Admin: 08/26/25 09:40 Dose: 1 gm Enoxaparin Sodium (Enoxaparin Sodium 40 Mg/0.4 Ml Syringe) 40 mg SUBCUT Q24H [facility] Levothyroxine Sodium (Levothyroxine Sodium 75 Mcg Tablet) 75 mcg PO DAILY@0600 [facility] Non-Formulary Medication (Carbidopa-Levodopa [Rytary]) 1 cap PO QID [facility] Ondansetron HCl (Ondansetron Odt 4 Mg Tab.Rapdis) 4 mg TRANSLINGU Q8H PRN PRN Reason: Nausea and Vomiting Ondansetron HCl (Ondansetron Hcl 4 Mg/2 Ml Vial) 4 mg IVPUSH Q8H PRN PRN Reason: Nausea and Vomiting Quetiapine Fumarate (Quetiapine Fumarate 25 Mg Tablet) 25 mg PO BEDTIME PRN PRN Reason: Sleep Home Medications ?Medication ?Instructions ?Recorded ?Confirmed ?Last Taken ?Type levothyroxine 75 mcg tablet 75 mcg PO DAILY@0600 01/1908/25/25 08/24/25 History quetiapine 25 mg tablet 25 mg PO BEDTIME PRN Sleep 0 12/18/24 08/25/25 08/24/25 History carbidopa ER 61.25 mg-levodopa 245 1 cap PO QID 08/25/25 08/24/25 History mg capsule,extended release (Rytary) Physical Exam 2 Vital Signs: Vital Signs: Last Vital Signs Temp 97.8 F 08/26/25 09:01 Pulse 96 08/26/25 09:01 Resp 15 08/26/25 09:01 BP 113/55 L 08/26/25 09:01 Pulse Ox 96 08/26/25 09:01 O2 Del Method Room Air 08/26/25 09:01 BMI result Body Mass Index 17.9 Neuro: Other: I was able to easily wake her up. She made eye contact and stated that she lived close by. She was following commands. She told me that she had dementia. Visual tobar are full. Face seems symmetrical. Tongue was midline. There was no obvious focal arm or leg weakness. Speech was normal. Affect was okay. Results Labs 08/26/25 09:54 08/26/25 10:14 Labs: Short CBC 08/26/25 Range/Units 09:54 WBC 5.5 (4.8-10.8) X10*3/uL Hgb 10.2 L (12.0-16.0) g/dl Hct 32.0 L (37.0-47.0) % Plt Count 146 L (160-400) X10*3/uL BMP 08/25/25 08/26/25 11:26 10:14 Sodium 140 147 H Potassium 3.7 4.2 Chloride 117 H 118 H Carbon Dioxide 14 L 22 BUN 15 14 Creatinine 0.77 0.76 Calcium 7.2 L D 8.8 D Cardiac Enzymes 08/25/25 Range/Units 11:26 Total Creatine Kinase 40 (26-140) U/L Liver Function 08/25/25 08/26/25 Range/Units 11:26 10:14 Total Bilirubin 0.3 0.6 (0.0-1.0) mg/dL Direct Bilirubin 0.2 (0.0-0.5) mg/dL AST 14 36 H (5-31) U/L ALT < 6 14 (0-31) U/L Alkaline Phosphatase 39 55 (39-117) U/L Albumin 2.7 L 3.9 (3.5-5.0) g/dL Head CT did not reveal any acute abnormality. Recent MRI also did not reveal any acute abnormality. Moderately severe diffuse cerebral atrophy and moderately severe vascular disease was noted. CTA did not reveal any large vessel stenosis. Assessment and Plan (1) Convulsive syncope: Status: Acute 85 years old woman with [id number] multifactorial dementia came to hospital after an episode that could be a seizure. On the other hand with significant hypotension, convulsive syncope could look like this too. She was at risk for both. For now my recommendation is to hydrate and adjust blood pressure parameters and maybe schedule an outpatient EEG to rule out any epileptic tendency. Procedures Date of Service Date of Service: 08/26/25
--- NOTE | 2025-08-26 14:56 | MHC.CM.PN ---
Addendum entered by Keke Venegas RN 08/26/25 15:25: Met with and grandson. Confirms he is graduate engineer. DME includes: hospital bed, commode, w/c, walker. Reports patient has an HCP naming then son and HCA's. He will bring in a copy tomorrow. DP: He is requesting a PT eval for ? STR prior to returning home on hospice. aware. Original Note: Patient confused, dx dementia. LM for - IMM delivered, request for call back to complete CM assessment. Rec'd call from [facility] ([phone]). Patient was active w/ [facility] for hospice services. DC'd from services now that she has been admitted to [facility]. Per Zuleika, comes from home w/ who is arterial embalmer graduate engineer. [facility] provides COMMUNICATION COORDINATOR 3x/wk and pays privately for WATER HAULER a few times a week. DP: ? return home w/ , resume hospice and private services, await call back from to confirm.
[2025-08-26 16:00] VITALS: BP 98/50; PULSE 94; RESP 16; TEMP 36.3; O2SAT 96
[2025-08-26 16:26] VITALS: BMI 22.7
--- NOTE | 2025-08-26 16:30 | MHC.CLN ---
NUTRITION DIET RX: REGULAR PO TODAY 75-100%. WEIGHED WITH BEDSCALE. WEIGHT=56.3 KG, BMI=22.7. APPEARS THIN BUT NOT MALNOURISHED. NO ADDITIONAL NUTRITION INTERVENTIONS AT THIS TIME.
--- NOTE | 2025-08-26 18:24 | PC.NURSE ---
Approximately 1800- patient's grandson at bedside reported patient had an episode of choking while eating dinner. Patient's grandson and patient reported she was eating too fast. Patient also reported feeling some of the pieces were a little too big . Head of bed had been elevated upright to allow for safe eating position prior to meal. No signs or symptoms of distress. Respirations even and unlabored. Speech clear. Food inspected and large pieces were further cut up. Patient continued eating independently. Advised to slow down and agreeable with plan. Grandson remained at bedside for duration of meal. No further complaints offered. Dr. Olivera notified. No new orders at this time.
[2025-08-26] MEDS: CARBIDOPA PO (19:26)
[2025-08-26] MEDS: LEVODOPA PO (19:26)
[2025-08-26 20:00] VITALS: BP 131/83; PULSE 83; RESP 16; TEMP 36.6; O2SAT 94
[2025-08-27 07:21] VITALS: BP 131/64; PULSE 93; RESP 18; TEMP 36.6; O2SAT 95
--- NOTE | 2025-08-27 08:29 | P.DS_ITS ---
DS: Providers Provider Date of Service: 08/27/25 Date of admission: 08/26/25 09:00 Date of discharge: 08/27/25 Primary care physician: Omar Siu MD Consults: 08/26/25 08:53 Consult to Neurology Routine Consulting Provider: [facility] [place] Reason for consultation: ams, ?seizure vs hypotensive encephalopathy DS: Diagnosis Discharge Diagnosis (1) Convulsive syncope: Status: Acute DS: Summary Hospital Course Hospital Course: from initial hpi: 85 year old women found unresponsive in her wheelchair this morning. EMS was called and she found to be hypotensive. Upon arrival to the ED patient was delirious and combative. She received Ketamine and Zyprexa in the ED. She was started on sepsis fluids and empiric antibiotics for UTI. Due to the hypotension she was started on Levophed and medicated for agitation multiple times. ED provider discussed patients management with her family and it was decided that the patient would be made confort measures only. Levophed was stopped and patient will be tx to [facility] . hospital course: Patient was admitted for acute metabolic encephalopathy. Was initially comfort measures only has unresponsive and poor prognosis. However, next day blood pressure mental status returned to baseline. 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 Was seen by Neurology Differential diagnosis for etiology includes seizure versus hypotensive encephalopathy due to autonomic dysfunction from Parkinson's. Recommendations were to obtain EEG which was done and should be followed up outpatient, stay hydrated and avoid hypotension. Acute lactic acidosis was due to hypotension not sepsis. For urinary tract infection was treated with ceftriaxone and culture still pending but will be discharged with 5 more days of Ceftin. For Parkinson's was continued on Sinemet. For hypothyroidism continue Synthroid. For history of CVA/peripheral vascular disease was continued on aspirin. Patient is back to her baseline and she will be discharged home with home hospice. Time Attestation Discharge Coordination Time (in mins): 33 Quality: Safe Use of Opioids Does Pt have an Active Cancer Diagnosis on the Problem List?: No Quality: Stroke Does the patient have a stroke diagnosis?: No Physical Exam Vital Signs: Vital Signs: Last Vital Signs Temp 97.8 F 08/27/25 07:21 Pulse 93 08/27/25 07:21 Resp 18 08/27/25 07:21 BP 131/64 08/27/25 07:21 Pulse Ox 95 08/27/25 07:21 O2 Del Method Room Air 08/27/25 07:21 BMI result Body Mass Index 22.7 Neuro: Other: I was able to easily wake her up. She made eye contact and stated that she lived close by. She was following commands. She told me that she had dementia. Visual tobar are full. Face seems symmetrical. Tongue was midline. There was no obvious focal arm or leg weakness. Speech was normal. Affect was okay. DS: Data Data Completed and Pending Completed studies during hospitalization [Text1]: Procedures Reposition Right Lower Femur with Intramedullary Internal Fixation Device, Percutaneous Approach (07/23/23) Reposition Right Upper Femur with Intramedullary Internal Fixation Device, Percutaneous Approach (05/26/23) Transfusion of Nonautologous Red Blood Cells into Peripheral Vein, Percutaneous Approach (05/26/23) Labs on day of discharge: Laboratory Results - last 24 hr 08/26/25 08/26/25 09:54 10:14 WBC 5.5 RBC 3.33 L Hgb 10.2 L Hct 32.0 L MCV 96.1 MCH 30.6 MCHC 31.9 RDW 13.4 Plt Count 146 L MPV 11.9 Absolute Nucleated RBC 0.000 Nucleated RBC % (auto) 0.0 Sodium 147 H Potassium 4.2 Chloride 118 H Carbon Dioxide 22 Anion Gap 11 L BUN 14 Creatinine 0.76 Estim Creat Clear Calc 37.9 Estimated GFR > 60 Random Glucose 84 Lactic Acid 1.0 Calcium 8.8 D Total Bilirubin 0.6 Direct Bilirubin 0.2 AST 36 H ALT 14 Alkaline Phosphatase 55 Total Protein 5.5 L Albumin 3.9 Preliminary micro results at discharge 08/25/25 10:18 Blood Culture - Preliminary Blood - Venous No growth after 24 hours. 08/25/25 10:09 Blood Culture - Preliminary Blood - Venous No growth after 24 hours. Discharge Plan Discharge Anticipated Discharge Date/Time: 08/27/25 08:22 Patient Disposition: Hospice - Home Discharge Diagnosis: encephalopathy Referrals: [facility] [Other] - 1 Day Referral Note: resume hospice services Omar Siu MD [Primary Care Provider, Internal Medicine] - 1 Week Discharge Medications: New cefuroxime axetil 500 mg tablet 500 mg PO BID Qty: 10 0RF Continued quetiapine 25 mg tablet 25 mg PO BEDTIME PRN (Reason: Sleep) aspirin 81 mg Tablet,Chewable 81 mg PO DAILY Qty: 30 0RF Rytary 61.25-245 mg capsule, extended release 1 cap PO QID levothyroxine 75 mcg tablet 75 mcg PO DAILY@0600 Discharge Orders: Discharge Order (Routine); Ordered 08/27/25 Ordered By: Jack Olivera Diet: Advance to usual diet Activity on Discharge: As tolerated Stand Alone Forms: Patient Portal Discharge page Print Language: Hungarian Care Plan Goals: manage symptoms Health Concerns: loc Plan of Treatment: stay hydrated, hospice care, follow up EEG results Assessment: see above
[2025-08-27] MEDS: CARBIDOPA PO (08:43)
[2025-08-27] MEDS: LEVODOPA PO (08:43)
--- NOTE | 2025-08-27 09:01 | MHC.CM.PN ---
Patient cleared for dc home w/ resumption of hospice services. does not wish to pursue STR at this time. He will transport home at 10:30, HEAVY FORGER HELPER will be present upon return home. [facility] aware and will plan to resume services today.
--- NOTE | 2025-08-27 11:35 | PC.NURSE ---
EEG completed. OK per Dr Olivera for pt to be discharged home
== END 2025-08-27 11:34 | disposition hospice, home (50) | DRG 74 ==
LOC: HO.ED 10:32 → HO.EDOVER 16:30 → HO.S3 16:51
PROVIDERS: Admitting Provider Nurse Practitioner Acute Care; Emergency Provider Emergency Medicine; PCP Family Medicine; Visit Provider Internal Medicine
DX: G90.9 Disorder of the autonomic nervous system, unspecified (principal); N39.0 Urinary tract infection, site not specified; F05 Delirium due to known physiological condition; G93.49 Other encephalopathy; E87.21 Acute metabolic acidosis; G20.A1 Parkinson's disease without dyskinesia, without mention of fluctuations; E03.9 Hypothyroidism, unspecified; G30.9 Alzheimer's disease, unspecified; F02.80 Dementia in other diseases classified elsewhere, unspecified severity, without behavioral disturbance, psychotic disturbance, mood disturbance, and anxiety; I95.9 Hypotension, unspecified; R56.9 Unspecified convulsions; Z51.5 Encounter for palliative care; Z20.822 Contact with and (suspected) exposure to COVID-19; Z87.891 Personal history of nicotine dependence; Z79.82 Long term (current) use of aspirin; Z79.890 Hormone replacement therapy; Z79.899 Other long term (current) drug therapy
CPT/HCPCS: 36415; 70450; 70496; 70498; 71045; 80048; 80053; 80076; 81001; 82550; 82947; 83605; 83735; 84443; 84484; 85025; 85027; 87040; 87086; 87088; 87186; 87635; 93005; 95816; 99221; 99285; J0696; J1650; J2359; J2543; J3374; J3475; J7120; P9047; Q9967

== ENCOUNTER → 2025-08-25 09:58 | Outpatient (BNV) | payer MEDICARE, OTHER, SELFPAY | PROVIDERS: Emergency Provider Emergency Medicine; PCP Family Medicine; Visit Provider Radiology Diagnostic Radiology | DX: I95.9 Hypotension, unspecified (principal) | CPT/HCPCS: 70450; 70496; 70498; 71045 ==

== ENCOUNTER → 2025-08-25 11:14 | Outpatient (BNV) | payer MEDICARE, OTHER, SELFPAY | PROVIDERS: Admitting Provider Nurse Practitioner Acute Care; Emergency Provider Emergency Medicine; PCP Family Medicine; Visit Provider Internal Medicine Cardiovascular Disease | DX: I48.91 Unspecified atrial fibrillation (principal) | CPT/HCPCS: 93010 ==

== ENCOUNTER → 2025-08-25 16:27 | Outpatient (BNV) | payer MEDICARE, OTHER, SELFPAY | PROVIDERS: Admitting Provider Nurse Practitioner Acute Care; Emergency Provider Emergency Medicine; PCP Family Medicine; Visit Provider Nurse Practitioner Acute Care | DX: Z51.5 Encounter for palliative care (principal); N39.0 Urinary tract infection, site not specified | CPT/HCPCS: 99232; 99497 ==

== ENCOUNTER → 2025-08-26 09:00 | Outpatient (BNV) | payer MEDICARE, OTHER, SELFPAY | PROVIDERS: Admitting Provider Nurse Practitioner Acute Care; Emergency Provider Emergency Medicine; PCP Family Medicine; Visit Provider Psychiatry & Neurology Neurology | DX: F03.911 Unspecified dementia, unspecified severity, with agitation (principal); G20.C Parkinsonism, unspecified | CPT/HCPCS: 95816; 99222 ==